=== PATIENT | male | born 1955 | race Caucasian/White ===

== ENCOUNTER 2018-05-20 14:57 | Inpatient (IN) | payer MEDICAID ==
[~2018-05-20] VITALS: Ht 165.1 cm; Wt 74.4 kg
--- NOTE | 2018-05-20 15:00 | NUR ---
RT PT WAS BROUGHT TO SUB ACUTE VIA AMBULANCE. PT WAS TRANSFER TO BED AND VENT WITH OUT INCIDENT. PT WAS PLACE ON HOSPITAL VENT SETTING GIVEN BY TRANSPORT RT. AC 14, VT 500, PEEP +5 FIO2 32% BLEED IN 3LPM. PT TRACH SIZE SHILEY 6 DCT SECURED AND INTACT WITH TIE, CUFF CHECKED WITH BENCH MOLDER. PT WAS SUCTION SMALL YELLOW/ WHITE SECRETION OBTAIN. PT HME WAS CHANGED. PT ALARMS ON AND AUDIBLE, AMBU BAG AND BACK UP TRACH AT BED SIDE. PT TOLERATING VENT WELL NO DISTRESS NOTED. PT HAS NO ABG ORDER, NO TX ORDER AT THIS TIME WILL CONTINUE TO MONITOR PT. NO SPUTUM ORDER AT THIS TIME.
[2018-05-20] MEDS ORDERED: HYDROGEN PEROXIDE 3% 118 ML BOTTLE TP PRN (18:15)
[2018-05-20] MEDS ORDERED: ACETAMINOPHEN 650 MG/20 ML UDC- SA PATIENTS-FEVER ONLY GT PRN (18:15)
[2018-05-20] MEDS ORDERED: DEXTROSE 50% 50 ML DISP.SYRIN IV PRN (18:30)
[2018-05-20] MEDS ORDERED: hydrALAZINE HCL 10 MG TABLET GT PRN (18:30)
[2018-05-20] MEDS ORDERED: TUBERCULIN,PURIF.PROT.DERIV. 5 TU/0.1 ML TEST ID ONE (18:45)
[2018-05-20 18:50] VITALS: BP 112/62
--- NOTE | 2018-05-20 18:56 | NUR ---
Received patient via gurney from [facility], no distress noted, Mechanical vent set up by Rt, no s/s of acute distress noted, has gtube, feeding started, no n/v noted, f/c in place, changed due to by passing urine, f/c [id number] restarted and f/c started to drain yellow cloudy with sediments urine, right ear pressure ulcer stage IV and sacral ulcer St III per report, picture taken, tx ordered, cleanse and dressing changed, bilateral trace edema on foot noted, edema +3 noted on upper extremities, and daughter at bedside, refused flu and pneumonia vaccine at this time. Bed low and locked. call light within reached. will continue to monitor.
[2018-05-20] MEDS: ALBUTEROL SULFATE 2.5 MG/3 ML NEBU NEB SCH (19:30)
[2018-05-20] MEDS: IPRATROPIUM BROMIDE 0.5 MG/2.5 ML NEBU NEB SCH (19:30)
--- NOTE | 2018-05-20 19:55 | NUR ---
Pt received on HT-50 ventilator with the following settings of AC 14, VT 500, Peep +5, FiO2 3LPM O2 Bleed-in, no changes to vent settings made at this time. Pt's trach is secured and patent. Pt tolerating vent settings well, no signs and symptoms of respiratory distress noted. Suctioned pt with moderate amount of thick pale-yellowish secretions. Changed HME. Vent alarms functioning and audible. Vent plugged in red outlet. Will continue to monitor pt throughout shift.
[2018-05-20 20:59] VITALS: BP 134/74
[2018-05-20] MEDS ORDERED: ATORVASTATIN 40 MG TABLET GT SCH (21:00)
[2018-05-20] MEDS ORDERED: LACOSAMIDE 100 MG/10 ML UDC GT SCH (21:00)
[2018-05-20] MEDS ORDERED: METOPROLOL TARTRATE 25 MG TABLET GT SCH (21:00)
[2018-05-20] MEDS ORDERED: ENOXAPARIN SODIUM 60 MG/0.6 ML DISP.SYRIN SQ SCH (21:00)
[2018-05-20] MEDS ORDERED: MISCELLANEOUS MED GT SCH (21:00)
[2018-05-20] MEDS ORDERED: VALPROIC ACID 250 MG/5 ML LIQUID UDC GT SCH (21:00)
[2018-05-20] MEDS: FERROUS SULFATE 330 MG/7.5 ML UDC- FOR SA ONLY GT SCH (21:32)
[2018-05-20] MEDS: ASCORBIC ACID 500 MG TABLET GT SCH (21:32)
[2018-05-20] MEDS: PROTEIN SUPPLEMENT (PROSTAT) 30 ML LIQUID GT SCH (21:32)
[2018-05-20] MEDS: ZINC SULFATE 220 MG CAPSULE GT SCH (21:32)
[2018-05-20] MEDS: POLYVINYL ALCOHOL OPHT DROPS 15 ML BOTTLE OP SCH (21:32)
[2018-05-20] MEDS: HYDROGEN PEROXIDE 3% 118 ML BOTTLE TP SCH (21:32)
[2018-05-20] MEDS ORDERED: MIDODRINE HCL 5 MG TABLET GT SCH (22:00)
[2018-05-21] MEDS ORDERED: DILTIAZEM HCL 30 MG TABLET GT SCH
[2018-05-21] MEDS ORDERED: METOCLOPRAMIDE HCL 5 MG TABLET GT SCH
[2018-05-21] MEDS: BLOOD SUGAR DIAGNOSTIC 1 EACH STRIP VI SCH ×4 (00:49→17:34)
[2018-05-21] MEDS: IPRATROPIUM BROMIDE 0.5 MG/2.5 ML NEBU NEB SCH ×4 (01:09→19:28)
[2018-05-21] MEDS: ALBUTEROL SULFATE 2.5 MG/3 ML NEBU NEB SCH ×4 (01:10→19:28)
[2018-05-21] MEDS: FERROUS SULFATE 330 MG/7.5 ML UDC- FOR SA ONLY GT SCH ×3 (05:37→22:00)
[2018-05-21] MEDS: POLYVINYL ALCOHOL OPHT DROPS 15 ML BOTTLE OP SCH ×3 (05:37→22:00)
[2018-05-21] MEDS ORDERED: [UNRECOGNIZED DRUG - OTHER] GT SCH (06:30)
[2018-05-21 08:41] LABS: BASOPHILS % (AUTO) 0.4 % (0.0-2.0); EOSINOPHILS # (AUTO) 0.2 K/uL (0.0-0.7); EOSINOPHILS % (AUTO) 3.9 % (0.0-7.0); HEMATOCRIT 23.7 % (36.7-47.1); HEMOGLOBIN 8.1 g/dL (12.5-16.3); LYMPHOCYTES % (AUTO) 17.8 % (20.5-51.5); MEAN CORPUSCULAR HEMOGLOBIN 29.5 uug (23.8-33.4); MEAN CORPUSCULAR HGB CONC 34 g/dL (32.5-36.3); MEAN CORPUSCULAR VOLUME 86.3 fL (73.0-96.2); MONOCYTES # (AUTO) 0.5 K/uL (2.0-10.0); MONOCYTES % (AUTO) 10.1 % (0.0-11.0); NEUTROPHILS # (AUTO) 3.7 K/uL (1.8-8.9); NEUTROPHILS % (AUTO) 67.8 % (38.5-71.5); PLATELET COUNT (AUTO) 169 K/uL (152-348); RED BLOOD CELL COUNT(AUTO) 2.74 MIL/uL (4.06-5.63); WHITE BLOOD COUNT (AUTO) 5.4 K/uL (3.6-10.2)
[2018-05-21] MEDS ORDERED: METOPROLOL TARTRATE 25 MG TABLET GT SCH (09:00)
[2018-05-21] MEDS ORDERED: MULTIVITAMINS,THERAPEUTIC TABLET GT SCH ×2 (09:00→21:00)
[2018-05-21 09:11] LABS: BAND % (MANUAL) 2 % (0-10); EOSINOPHILS % (MANUAL) 3 % (0-8); LYMPHOCYTES % (MANUAL) 23 % (20-40); MONOCYTES % (MANUAL) 5 % (2-10); NEUTROPHILS % (MANUAL) 67 % (42-75)
[2018-05-21 09:32] LABS: THYROID STIMULATING HORMONE 2.614 mIU/mL (0.358-3.740)
[2018-05-21 09:38] LABS: ALANINE AMINOTRANSFERASE 179 U/L (16-63); ALKALINE PHOSPHATASE 124 U/L (50-136); ASPARTATE AMINOTRANSFERASE 116 U/L (15-37); BILIRUBIN,TOTAL 0.3 mg/dL (0.2-1.0); CARBON DIOXIDE 30 mmol/L (21-32); CHLORIDE 104 mmol/L (98-107); CHOLESTEROL 97 mg/dL (<200); CREATININE 0.5 mg/dL (0.6-1.3); GLUCOSE 133 mg/dL (74-106); HDL CHOLESTEROL 16 mg/dL (40-60); MAGNESIUM 1.9 mg/dL (1.8-2.4); POTASSIUM 4.1 mmol/L (3.5-5.1); TOTAL PROTEIN, SERUM 5.3 g/dL (6.4-8.2); TRIGLYCERIDES 117 MG/DL (30-150); UREA NITROGEN, BLOOD 24 mg/dL (7-18)
[2018-05-21] MEDS: LOSARTAN POTASSIUM 50 MG TABLET GT SCH (09:50)
[2018-05-21] MEDS: ASPIRIN 81 MG TAB.CHEW GT SCH (09:50)
[2018-05-21] MEDS: LEVETIRACETAM 500 MG/5 ML LIQUID UDC GT SCH ×2 (09:50→21:00)
[2018-05-21] MEDS: VALPROIC ACID 250 MG/5 ML LIQUID UDC GT SCH ×2 (09:51→21:00)
[2018-05-21] MEDS: METOPROLOL TARTRATE 50 MG TABLET GT SCH ×2 (09:51→21:00)
[2018-05-21] MEDS: HYDROGEN PEROXIDE 3% 118 ML BOTTLE TP SCH ×2 (09:52→21:00)
[2018-05-21] MEDS: ACETAMINOPHEN 650 MG/20 ML UDC- SA PATIENTS-PAIN ONLY GT PRN (09:56)
--- NOTE | 2018-05-21 11:00 | NUR ---
Pt evaluation done with new orders noted for prom by Rna to all extremities,carried out.
[2018-05-21 11:49] VITALS: BP 141/86
[2018-05-21 11:51] VITALS: BP 131/67
[2018-05-21] MEDS: METOCLOPRAMIDE HCL 10 MG/10 ML UDC GT SCH ×2 (11:52→17:34)
[2018-05-21 12:30] VITALS: BP 122/63
--- NOTE | 2018-05-21 13:59 | NUR ---
WOUND CARE CONSULT: PT PRESENTS WITH RT EAR HEALING STAGE 4 ULCER (PRESENT ON ADMISSION) WHICH MEASURES 2CM X 1CM X 0.1CM AND IS RED/PINK IN COLOR, NO DRAINAGE, NO ODOR. CONCUR WITH CURRENT ORDER FOR HYDROGEL AND DRY DRESSING, OFFLOAD AREA. PT ALSO PRESENTS WITH STAGE 3 SACRAL ULCER, PRESENT ON ADMISSION WITH WOUND BED CHANGES TO INCLUDE 100% YELLOW ADHERENT SLOUGH, PRESENT ON ADMISSION. SACRAL WOUND MEASURES 2CM X 1CM X UTD WITH SCANT AMOUNT OF SEROUS DRAINAGE, NO ODOR. SANTYL WAS REQUESTED BY NURSING STAFF. RECOMMENDATIONS MADE FOR SKIN PROTECTION AND WOUND CARE. DISCUSSED WITH NURSING STAFF (APPLY SALINE-MOISTENED GAUZE OVER SANTYL). WILL SEE PRN. GILL IN AGREEMENT WITH PLAN OF CARE.
--- NOTE | 2018-05-21 14:10 | NUR ---
Seen and examined by Sofie wound home care physical therapist with new orders noted.
[2018-05-21] MEDS ORDERED: MIDODRINE HCL 5 MG TABLET GT PRN (14:45)
[2018-05-21] MEDS ORDERED: COLLAGENASE OINT 30 GM TUBE TP PRN (15:30)
--- NOTE | 2018-05-21 15:39 | NUR ---
new orders noted from Dr Willams,Lovenox changed to 40 mg for Dvt prophilaxis,to start on pepcid 40 mg via gt at 0630 am.
[2018-05-21 16:30] VITALS: BP 117/69
--- NOTE | 2018-05-21 17:38 | NUR ---
RECEIVED RESIDENT STABLE ON CURRENT VENTILATOR SETTINGS OF AC 14 VT 500, PEEP 5 AND FIO2 BLED IN AT 3LPM IN LINE. IN LINE TX GIVEN WITHOUT COMPLICATION. SUCTIONED FOR MODERATE AMOUNT OF PALE WHITE SECRETIONS. TRACH SHILEY # 6 IS SECURE AND CLEAN. VENT IS WORKING WELL WITH ALARMS ACTIVE. CHANGED HUMIDIFIER FILTER.
--- NOTE | 2018-05-21 19:30 | NUR ---
Pt received on HT-50 vent with the following settings of AC-14, Vt-500, PEEP+5, FIO2-3LPM bleed-in, trached with Shiley#6 DCT trach, which is in the place and secure. No respiratory distress noted. Airway care done, pt responded to physical stimuli. In-line HHN tx with 2.5mg Albuterol+0.5mg Atrovent given, no adverse reaction noted. Resus. bag and back up trach at bedside. Vent and alarms checked and reset.
--- NOTE | 2018-05-21 19:30 | NUR ---
Hand-off report received from off-going RN per bedside rounds. Received pt on HT Vent Settings: AC 14, VT 500, Peep 5, FI02 3 LPM bleed in trach, Bridgett #6. Right ear pressure ulcer stage4 and sacral ulcer stage 3. Edema 3+ in both upper extremities and slightly less in lower extremities.
[2018-05-21 19:43] LABS: *BILIRUBIN,URIN NEGATIVE (NEGATIVE); *BLOOD, URINE 3+ (NEGATIVE); *CLARITY,URINE SLIGHTLY CLOUDY (CLEAR); *COLOR,URINE AMBER (YELLOW); *KETONES,URINE NEGATIVE (NEGATIVE); LEUKOCYTE ESTERASE ,URINE 2+ (NEGATIVE); NITRITE, URINE NEGATIVE (NEGATIVE); PH,URINE >=9.0 (5.0-8.0); UGLUCOSE NEGATIVE (NEGATIVE)
[2018-05-21 19:44] LABS: RBC,URINE 20-50 /HPF (0-3)
[2018-05-21 19:45] LABS: BACTERIA,URINE MANY /HPF (NONE SEEN); SQUAMOUS EPITHELIAL CELL,UR FEW /HPF (NONE SEEN); TRIPLE PHOSPHATE CRYSTAL,UR FEW /HPF (NONE SEEN)
[2018-05-21 20:06] VITALS: BP 133/77
[2018-05-21] MEDS: ATORVASTATIN CALCIUM 80 MG TABLET PO SCH (21:00)
[2018-05-21] MEDS: MULTIVITAMINS,THERAPEUTIC TABLET GT SCH (21:00)
[2018-05-21] MEDS: LACOSAMIDE 200 MG TABLET XX SCH (21:00)
[2018-05-21] MEDS: PROTEIN SUPPLEMENT (PROSTAT) 30 ML LIQUID GT SCH (21:00)
[2018-05-21] MEDS: ASCORBIC ACID 500 MG TABLET GT SCH (21:00)
[2018-05-21] MEDS: ZINC SULFATE 220 MG CAPSULE GT SCH (21:00)
--- NOTE | 2018-05-22 01:00 | NUR ---
Found new unopened box of Lovenox in Med drawer among routine meds. Handed over to Charge Nurse Marissa MOORE. Instructed by dayshift that Lovenox was scheduled for delivery and we are "NOT" to accept it and send it back. Uncertain as to when and how meds ended up in drawer as is Charge Nurse. Urine remains yellow, no signs of bleeding. Continue to monitor and assist.
[2018-05-22] MEDS: IPRATROPIUM BROMIDE 0.5 MG/2.5 ML NEBU NEB SCH ×4 (01:08→19:53)
[2018-05-22] MEDS: ALBUTEROL SULFATE 2.5 MG/3 ML NEBU NEB SCH ×4 (01:08→19:53)
[2018-05-22 01:35] VITALS: BP 115/65
[2018-05-22 05:36] VITALS: BP 139/73
[2018-05-22] MEDS ORDERED: ENOXAPARIN SODIUM 60 MG/0.6 ML DISP.SYRIN SQ SCH (06:00)
[2018-05-22 06:05] LABS: ABG BASE EXCESS 3.6 mmol/L; ABG HCO3 26.3 mmol/L; ABG PCO2 32.6 mmHg (35.0-45.0); ABG PH 7.525 (7.350-7.450); ABG PO2 199.8 mmHg (75.0-100.0); ABG SITE LEFT RADIAL; ABG TOTAL HEMOGLOBIN 9.3 G/dL (13.5-18.0); MetHb 0.2 % (0.0-1.5); O2Hb 98.4 % (94.0-97.0); VENT MODE VENT - A/C; VT, ABG 500 mL
[2018-05-22] MEDS: BLOOD SUGAR DIAGNOSTIC 1 EACH STRIP VI SCH ×4 (06:47→17:38)
[2018-05-22] MEDS: POLYVINYL ALCOHOL OPHT DROPS 15 ML BOTTLE OP SCH ×3 (06:48→21:01)
[2018-05-22] MEDS: METOCLOPRAMIDE HCL 10 MG/10 ML UDC GT SCH ×4 (06:49→17:38)
[2018-05-22] MEDS: FERROUS SULFATE 330 MG/7.5 ML UDC- FOR SA ONLY GT SCH ×3 (06:49→21:01)
--- NOTE | 2018-05-22 07:15 | NUR ---
Hand-off report to on-coming Kishan MOORE per bedside round. Pt in bed, no significant changes. Stool, Sputum and Urine specimens all obtained. Relinquishing care of pt at this time.
--- NOTE | 2018-05-22 07:50 | NUR ---
Pt received in semi tellez position, obtunded, and unable to communicate. Pt received on continuous mechanical ventilation via Shiley 6 DCT trach. Pt is on Jose HT-50 ventilator with ordered settings of A/C-14, VT-500, PEEP+5, FIO2-32% 3LPM Bleed-in. Tolerating vent settings well. SpO2-100% Trach is patent and secured. In-line nebulizer treatments given as ordered, Q6 with Albuterol/Atrovent. Treatments tolerated well, no adverse reactions noted. Sxn'd and lavaged as needed. Suctioned small amounts of thick white/yellow secretions. HME changed. No signs or symptoms of respiratory distress. Ventilator alarm parameters checked, on and audible. Vent plugged into red emergency outlet. Bag/valve/mask and backup trach at bedside. Will continue to monitor.
[2018-05-22 07:58] LABS: *OCCULT BLOOD STOOL NEGATIVE (NEGATIVE)
[2018-05-22] MEDS: METOPROLOL TARTRATE 50 MG TABLET GT SCH ×2 (09:43→20:49)
[2018-05-22] MEDS: LOSARTAN POTASSIUM 50 MG TABLET GT SCH (09:43)
[2018-05-22] MEDS: VALPROIC ACID 250 MG/5 ML LIQUID UDC GT SCH ×2 (09:43→20:48)
[2018-05-22] MEDS: LEVETIRACETAM 500 MG/5 ML LIQUID UDC GT SCH ×2 (09:43→20:48)
[2018-05-22] MEDS: ASPIRIN 81 MG TAB.CHEW GT SCH (09:43)
[2018-05-22] MEDS: HYDROGEN PEROXIDE 3% 118 ML BOTTLE TP SCH ×2 (09:44→20:50)
[2018-05-22] MEDS: LACOSAMIDE 200 MG TABLET XX SCH ×2 (09:44→21:01)
--- NOTE | 2018-05-22 10:34 | NUR ---
SW met with patient's Zoya and daughter Vagnie and obtained 's signatures on the admission forms: Conditions of Admissions, [facility] Agreement, Patient's Rights Acknowledgement, Voluntary Prior Express Consent Form, and Preferred Intensity of Care. Patient is a Full Code. is Malian-speaking only. Translation provided by daughter, Vangie. SW also completed the initial psychosocial assessment with patient's , Zoya and daughter Shawnee, and translation was provided by daughter, Vangie. Patient's is the responsible alliance party and decision maker. She also requested to include pt's niece, Indra Pierce ([phone]), as she is an RN. All other children live in [facility]. No visitation restrictions provided by family.
--- NOTE | 2018-05-22 17:14 | NUR ---
Dr Beltrán aware of the venous doppler results,lower extremity negative for DVT,and for the upper extremities the result is ;there is no flow present within the brachial veins bilaterally ,clot formation is also observed,impression,changes of bilateral acute deep venous thrombosis involving the brachial veins .he stated to inform the primary physicians,if he wants a vascular surgeon consultation,Dr Chapa called ,email operations manager for the [employer] this week,with no new orders noted,he stated we can't order lovenox because the hemoglobin is 8.1,,no orders for vascular surgeon consultation.Dr Beltrán called and left message making him aware .
--- NOTE | 2018-05-22 17:15 | NUR ---
FIO2 decreased per MD orders to Titrate to SpO2>92%. Oxygen changed to 2LPM Bleed-in.
--- NOTE | 2018-05-22 19:55 | NUR ---
RECEIVED PT ON CONTINUOUS VENT AC 14 VT 500 PEEP 5 FIO2 2LPM BLEED. TRACH IN PLACED AND SECURED WITH TRACH TIE. BACK UP TRACH AND AMBU BAG AT BEDSIDE. IN LINE TX GIVEN ORDERED. SUCTION LAVAGE PRN. VENT CHECKED, ALARMS WORKING WELL AND AUDIBLE. NO SIGNS OF RESPIRATORY DISTRESS NOTED AT THIS TIME. WILL CONTINUE TO MONITOR.
[2018-05-22 20:19] VITALS: BP 127/76
[2018-05-22] MEDS: PROTEIN SUPPLEMENT (PROSTAT) 30 ML LIQUID GT SCH (20:49)
[2018-05-22] MEDS: MULTIVITAMINS,THERAPEUTIC TABLET GT SCH (20:49)
[2018-05-22] MEDS: ASCORBIC ACID 500 MG TABLET GT SCH (20:50)
[2018-05-22] MEDS: ATORVASTATIN CALCIUM 80 MG TABLET PO SCH (20:50)
[2018-05-22] MEDS: ZINC SULFATE 220 MG CAPSULE GT SCH (20:50)
[2018-05-22] MEDS: COLLAGENASE OINT 30 GM TUBE TP SCH (21:03)
[2018-05-23] VITALS: BP 123/66
[2018-05-23] MEDS: METOCLOPRAMIDE HCL 10 MG/10 ML UDC GT SCH ×4 (00:31→18:20)
[2018-05-23] MEDS: BLOOD SUGAR DIAGNOSTIC 1 EACH STRIP VI SCH ×4 (00:32→18:20)
[2018-05-23] MEDS: IPRATROPIUM BROMIDE 0.5 MG/2.5 ML NEBU NEB SCH ×4 (01:11→19:30)
[2018-05-23] MEDS: ALBUTEROL SULFATE 2.5 MG/3 ML NEBU NEB SCH ×4 (01:11→19:30)
[2018-05-23] MEDS: GLUCERNA 1.2 1000ML LIQUID GT PRN ×2 (01:37→21:41)
[2018-05-23 04:00] VITALS: BP 117/64
[2018-05-23] MEDS: FERROUS SULFATE 330 MG/7.5 ML UDC- FOR SA ONLY GT SCH ×3 (06:34→21:48)
[2018-05-23] MEDS: POLYVINYL ALCOHOL OPHT DROPS 15 ML BOTTLE OP SCH ×3 (06:35→21:48)
[2018-05-23 08:00] VITALS: BP 124/41
--- NOTE | 2018-05-23 08:06 | NUR ---
Pt receive in semi tellez position, unable to communicate, responds to physical stimuli.. Continuous mechanical ventilation with vent: HT-50 settings: A/C 14, Vt 500, PEEP +5, FIO2 28% with 2 Lpm bleed in, tolerating settings well, no changes made to settings at this time.. Pt trach: Leonard 6 DCT, in place and secure with tie.. No respiratory distress noted at this time, will continue to monitor.. Vent alarms functioning normally at this time / on / audible.. BVM / back up trach at bedside, vent plugged in to red emergency outlet..
[2018-05-23] MEDS: METOPROLOL TARTRATE 50 MG TABLET GT SCH ×2 (09:07→21:34)
[2018-05-23] MEDS: LEVETIRACETAM 500 MG/5 ML LIQUID UDC GT SCH ×2 (09:07→21:32)
[2018-05-23] MEDS: ASPIRIN 81 MG TAB.CHEW GT SCH (09:07)
[2018-05-23] MEDS: LOSARTAN POTASSIUM 50 MG TABLET GT SCH (09:07)
[2018-05-23] MEDS: COLLAGENASE OINT 30 GM TUBE TP SCH ×2 (09:07→21:47)
[2018-05-23] MEDS: HYDROGEN PEROXIDE 3% 118 ML BOTTLE TP SCH ×2 (09:07→21:47)
[2018-05-23] MEDS: VALPROIC ACID 250 MG/5 ML LIQUID UDC GT SCH ×2 (09:07→21:32)
[2018-05-23] MEDS: LACOSAMIDE 200 MG TABLET XX SCH ×2 (09:08→21:47)
[2018-05-23 09:47] LABS: BASOPHILS % (AUTO) 0.6 % (0.0-2.0); EOSINOPHILS # (AUTO) 0.2 K/uL (0.0-0.7); HEMATOCRIT 27.8 % (36.7-47.1); HEMOGLOBIN 9.2 g/dL (12.5-16.3); LYMPHOCYTES # (AUTO) 1.3 K/uL (20.0-40.0); MEAN CORPUSCULAR HEMOGLOBIN 29.1 uug (23.8-33.4); MEAN CORPUSCULAR HGB CONC 33 g/dL (32.5-36.3); MEAN CORPUSCULAR VOLUME 87.6 fL (73.0-96.2); MONOCYTES # (AUTO) 0.8 K/uL (2.0-10.0); MONOCYTES % (AUTO) 10.6 % (0.0-11.0); NEUTROPHILS # (AUTO) 5.3 K/uL (1.8-8.9); NEUTROPHILS % (AUTO) 69.8 % (38.5-71.5); PLATELET COUNT (AUTO) 194 K/uL (152-348); RED BLOOD CELL COUNT(AUTO) 3.17 MIL/uL (4.06-5.63); WHITE BLOOD COUNT (AUTO) 7.6 K/uL (3.6-10.2)
[2018-05-23] MEDS ORDERED: ENOXAPARIN SODIUM 80 MG/0.8 ML DISP.SYRIN SQ ONE (11:00)
--- NOTE | 2018-05-23 18:39 | NUR ---
Received call from Lab for MRSA positive. Paged Dr. Beltrán with new orders noted and carried out .
--- NOTE | 2018-05-23 18:41 | NUR ---
Notified responsible republican of the MRSA status of the patient and the plan of action.
--- NOTE | 2018-05-23 19:30 | NUR ---
RECEIVED PATIENT ON A HT-50 VENTILATOR WITH THE FOLLOWING SETTINGS THAT ARE CHARTED ON THE MECHANICAL VENTILATOR NOTES. TRACH TUBE IS PATENT AND SECURED WITH TRACH TIES. HME CHANGED. SUCTIONED SMALL AMOUNTS OF THIN WHITE/YELLOW SECRETIONS. HHN TX GIVEN PER MD ORDER'S AND WAS TOLERATED WELL WITH NO ADVERSE REACTIONS NOTED. VENTILATOR ALARMS CHECKED AND THEY ARE ON AND AUDIBLE. VENTILATOR IS PLUGGED IN THE RED EMERGENCY OUTLET. BACK UP TRACH AND AMBU BAG IS BY BEDSIDE. PATIENT IS TOLERATING CURRENT VENTILATOR SETTINGS WELL AT THIS TIME WITH NO SIGNS OR SYMPTOMS OF RESPIRATORY DISTRESS NOTED. WILL CONTINUE TO MONITOR PATIENT.
[2018-05-23 20:00] VITALS: BP 139/79
[2018-05-23] MEDS: MUPIROCIN 2% OINT 22 GM TUBE TP SCH (21:00)
[2018-05-23] MEDS: ASCORBIC ACID 500 MG TABLET GT SCH (21:35)
[2018-05-23] MEDS: MULTIVITAMINS,THERAPEUTIC TABLET GT SCH (21:35)
[2018-05-23] MEDS: PROTEIN SUPPLEMENT (PROSTAT) 30 ML LIQUID GT SCH (21:35)
[2018-05-23] MEDS: ZINC SULFATE 220 MG CAPSULE GT SCH (21:35)
[2018-05-23] MEDS: ATORVASTATIN CALCIUM 80 MG TABLET PO SCH (21:36)
[2018-05-23] MEDS: ENOXAPARIN SODIUM 80 MG/0.8 ML DISP.SYRIN SQ SCH (21:45)
[2018-05-24] MEDS: BLOOD SUGAR DIAGNOSTIC 1 EACH STRIP VI SCH ×4 (00:40→17:10)
[2018-05-24] MEDS: METOCLOPRAMIDE HCL 10 MG/10 ML UDC GT SCH ×4 (00:45→17:10)
[2018-05-24 01:19] VITALS: BP 116/76
[2018-05-24] MEDS: ALBUTEROL SULFATE 2.5 MG/3 ML NEBU NEB SCH ×4 (01:21→19:20)
[2018-05-24] MEDS: IPRATROPIUM BROMIDE 0.5 MG/2.5 ML NEBU NEB SCH ×4 (01:21→19:20)
[2018-05-24] MEDS: FERROUS SULFATE 330 MG/7.5 ML UDC- FOR SA ONLY GT SCH ×3 (05:05→21:49)
[2018-05-24] MEDS: POLYVINYL ALCOHOL OPHT DROPS 15 ML BOTTLE OP SCH ×3 (05:05→21:49)
[2018-05-24] MEDS: FAMOTIDINE 40 MG TABLET GT SCH (05:35)
[2018-05-24 06:01] VITALS: BP 114/63
[2018-05-24 07:13] LABS: CARBON DIOXIDE 30 mmol/L (21-32); CHLORIDE 104 mmol/L (98-107); CREATININE 0.5 mg/dL (0.6-1.3); GLUCOSE 117 mg/dL (74-106); POTASSIUM 4.3 mmol/L (3.5-5.1); UREA NITROGEN, BLOOD 27 mg/dL (7-18)
[2018-05-24 07:22] LABS: BASOPHILS % (AUTO) 0.5 % (0.0-2.0); EOSINOPHILS # (AUTO) 0.2 K/uL (0.0-0.7); EOSINOPHILS % (AUTO) 2.1 % (0.0-7.0); HEMATOCRIT 26.8 % (36.7-47.1); HEMOGLOBIN 9.1 g/dL (12.5-16.3); LYMPHOCYTES # (AUTO) 1.3 K/uL (20.0-40.0); LYMPHOCYTES % (AUTO) 16.5 % (20.5-51.5); MEAN CORPUSCULAR HEMOGLOBIN 29.5 uug (23.8-33.4); MEAN CORPUSCULAR HGB CONC 34 g/dL (32.5-36.3); MEAN CORPUSCULAR VOLUME 87.3 fL (73.0-96.2); MONOCYTES # (AUTO) 0.7 K/uL (2.0-10.0); MONOCYTES % (AUTO) 8.9 % (0.0-11.0); NEUTROPHILS # (AUTO) 5.6 K/uL (1.8-8.9); PLATELET COUNT (AUTO) 195 K/uL (152-348); RED BLOOD CELL COUNT(AUTO) 3.07 MIL/uL (4.06-5.63); WHITE BLOOD COUNT (AUTO) 7.8 K/uL (3.6-10.2)
--- NOTE | 2018-05-24 07:45 | NUR ---
PT REC'D ON HT-50 VENT AC 14 VT 500 PEEP+5 2LPM O2 BLEED-IN. SHILEY6 CUFFED TRACH IN PLACED AND SECURED WITH TRACH TIE. BACK UP TRACH AND AMBU BAG AT BEDSIDE. IN LINE NEB TX'S GIVEN ORDERED. SUCTION/LAVAGE PRN. VENT ALARMS AUDIBLE CHECKED AND RESET. NO SIGNS OF RESPIRATORY DISTRESS NOTED AT THIS TIME. WILL CONTINUE TO MONITOR.
[2018-05-24 08:07] LABS: EOSINOPHILS % (MANUAL) 2 % (0-8); LYMPHOCYTES % (MANUAL) 7 % (20-40); MONOCYTES % (MANUAL) 6 % (2-10); NEUTROPHILS % (MANUAL) 85 % (42-75)
[2018-05-24 09:00] VITALS: BP 124/64
[2018-05-24] MEDS: VALPROIC ACID 250 MG/5 ML LIQUID UDC GT SCH ×2 (09:07→20:24)
[2018-05-24] MEDS: LOSARTAN POTASSIUM 50 MG TABLET GT SCH (09:07)
[2018-05-24] MEDS: ASPIRIN 81 MG TAB.CHEW GT SCH (09:07)
[2018-05-24] MEDS: LEVETIRACETAM 500 MG/5 ML LIQUID UDC GT SCH ×2 (09:08→20:24)
[2018-05-24] MEDS: METOPROLOL TARTRATE 50 MG TABLET GT SCH ×2 (09:09→20:25)
[2018-05-24] MEDS: ENOXAPARIN SODIUM 80 MG/0.8 ML DISP.SYRIN SQ SCH ×2 (09:09→20:32)
[2018-05-24] MEDS: COLLAGENASE OINT 30 GM TUBE TP SCH ×2 (09:11→20:26)
[2018-05-24] MEDS: MUPIROCIN 2% OINT 22 GM TUBE TP SCH ×2 (09:11→20:26)
[2018-05-24] MEDS: LACOSAMIDE 200 MG TABLET XX SCH ×2 (09:11→20:26)
[2018-05-24] MEDS: HYDROGEN PEROXIDE 3% 118 ML BOTTLE TP SCH ×2 (09:11→20:26)
[2018-05-24] MEDS: INSULIN REGULAR, HUMAN 300 UNIT/3 ML VIAL SQ PRN ×2 (12:11→17:10)
--- NOTE | 2018-05-24 13:46 | NUR ---
Pharmacy Update from today's 05/24/18 IDT Meeting Note: Pt admitted 05/20/18 from acute rehab for continuation of care after sudden cardiac arrest and subsequent anoxic brain injury. Pt is vent dependent, bedbound and developed seizures after cardiac arrest. Was treated for VAP, UTI, sepsis before transfer to [facility]: Temp 98.5 BP 116/75 HR 102 LABS: (from 05/24/18) Wbc 7.8 H/H 9.1/26.8 Plt 195 Na 139 K 4.3 Cl 104 CO2 30 BUN/Scr 27/0.5 BS 117 Ca 8.7 phos 4.0 Mg 1.9 A1c 5.7 TSH 2.614 MEDICATION USE REVIEWED: > Pt not on any anti-psych medications > Pt on Keppra 1500mg q12h since admit on 05/20/18, last calculated CrCl 133 ml/min, dose ok per renal fxn. > Pt on Vimpat 200mg q12h since admit 05/20/18, no seizures reported > Pt on Valproic acid 1000mg q12h since admit 05/20/18, no seizures at this time, will request levels if dose no longer adjusted by MDs. > Pt on Cozaar 50mg daily since 05/20/18, Lopressor 50mg q12hr (increased from 25mg q12h on 05/21), and hydralazine 10mg PRN SBP >160. Hold parameters in effect. Pt also previously on midodrine 10mg q8h prn SBP <90, continued per MD > Pt on famotidine 40mg daily for GI prophylaxis, ok per renal function. Remains on reglan 5mg q6h for continued gastroparesis maintenance treatment PRN MED USAGE: (since admit) Tylenol for pain/temp x0 Hydralazine used x0 Midodrine used x0 NEW ORDERS NOTED: > Rx reviewed all medications upon admission and made following recs: > Rec for change of midodrine scheduled to PRN based on current HTN med treatments and controlled BP at this time > Rec for lovenox 60mg daily - incorrect dosing originally for DVT prophylaxis, clarified and changed to 40mg daily > Pt noted with upper extremity DVT, lovenox dosing changed from 40 daily to 70mg q12h per weight based dosing 05/23. Plt ok at this time > Mupirocin ointment for MRSA nares 05/23-06/02 > Lopressor increased 05/21 25mg q12h to 50mg q12h. HR remains about baseline at 102, MD aware and following Patient was reviewed and discussed at IDT with family in attendance. All reports given per team, including recent medication changes and review of regimen. Recent start of lovenox treatment for DVT discussed, location in upper extremities and plt, hgb today ok for treatment. Pt's family noted he did previously have a HTN med d/c'd due to cough and possible angioedema, likely LEELA or ARB. Rx inquired if this medication had been d/c'd and replaced or is ongoing. Family notes this was rectified before transfer, no reports currently from RNs, therefore likely not pt's current cozaar. Rx also noted recent change with lopressor d/t HR, noted by IDT and , family aware, pt baseline HR about 100. No further concerns from team/family at this time, will continue to follow.
--- NOTE | 2018-05-24 16:36 | NUR ---
INTERDISCIPLINARY PLAN OF CARE CONFERENCE was held today. Patient's and daughter Vignesh were present at the meeting. Dr. Beltrán and the Interdisciplinary Team reviewed the current plan of care in detail. Patient was admitted to Subacute on 05/20/18. RN reported on patient's medical condition, wound treatments, and about positive finding for MRSA. Patient is currently on contact isolation precautions. See RN IDT conference notes. Pharmacist discussed patient's medications. See all disciplines IDT notes and physician's progress notes for additional details. Family's questions were addressed by Dr. Beltrán and the IDT team, and they expressed understanding and being content with the current plan of care.
[2018-05-24 19:59] VITALS: BP 130/74
[2018-05-24] MEDS: ASCORBIC ACID 500 MG TABLET GT SCH (20:25)
[2018-05-24] MEDS: MULTIVITAMINS,THERAPEUTIC TABLET GT SCH (20:25)
[2018-05-24] MEDS: PROTEIN SUPPLEMENT (PROSTAT) 30 ML LIQUID GT SCH (20:25)
[2018-05-24] MEDS: ATORVASTATIN CALCIUM 80 MG TABLET PO SCH (20:26)
[2018-05-24] MEDS: ZINC SULFATE 220 MG CAPSULE GT SCH (20:26)
--- NOTE | 2018-05-24 21:00 | NUR ---
Pt received on HT-50 ventilator with the following settings of AC 14, VT 500, Peep +5, FiO2 2LPM O2 Bleed-in, no changes to vent settings made at this time. Pt's trach is secured and patent. Pt tolerating vent settings well, no signs and symptoms of respiratory distress noted. Suctioned pt with moderate amount of thick pale-yellowish secretions. Changed HME. Vent alarms functioning and audible. Vent plugged in red outlet. Will continue to monitor pt throughout shift.
[2018-05-25] MEDS: METOCLOPRAMIDE HCL 10 MG/10 ML UDC GT SCH ×4 (00:15→17:41)
[2018-05-25] MEDS: BLOOD SUGAR DIAGNOSTIC 1 EACH STRIP VI SCH ×4 (00:16→17:49)
[2018-05-25] MEDS: ALBUTEROL SULFATE 2.5 MG/3 ML NEBU NEB SCH ×4 (01:24→20:16)
[2018-05-25] MEDS: IPRATROPIUM BROMIDE 0.5 MG/2.5 ML NEBU NEB SCH ×4 (01:24→20:16)
[2018-05-25] MEDS: GLUCERNA 1.2 1000ML LIQUID GT PRN ×2 (04:12→18:00)
[2018-05-25] MEDS: POLYVINYL ALCOHOL OPHT DROPS 15 ML BOTTLE OP SCH ×3 (05:49→21:01)
[2018-05-25] MEDS: FAMOTIDINE 40 MG TABLET GT SCH (05:49)
[2018-05-25] MEDS: FERROUS SULFATE 330 MG/7.5 ML UDC- FOR SA ONLY GT SCH ×3 (05:49→21:01)
[2018-05-25 08:06] VITALS: BP 125/61
[2018-05-25] MEDS: LOSARTAN POTASSIUM 50 MG TABLET GT SCH (09:00)
[2018-05-25] MEDS: HYDROGEN PEROXIDE 3% 118 ML BOTTLE TP SCH ×2 (09:00→21:00)
[2018-05-25] MEDS: METOPROLOL TARTRATE 50 MG TABLET GT SCH ×2 (09:00→20:56)
[2018-05-25] MEDS: ENOXAPARIN SODIUM 80 MG/0.8 ML DISP.SYRIN SQ SCH ×2 (09:00→21:02)
[2018-05-25] MEDS: ASPIRIN 81 MG TAB.CHEW GT SCH (09:00)
[2018-05-25] MEDS: VALPROIC ACID 250 MG/5 ML LIQUID UDC GT SCH ×2 (09:00→20:55)
[2018-05-25] MEDS: MUPIROCIN 2% OINT 22 GM TUBE TP SCH ×2 (09:00→21:00)
[2018-05-25] MEDS: LACOSAMIDE 200 MG TABLET XX SCH ×2 (09:00→21:01)
[2018-05-25] MEDS: LEVETIRACETAM 500 MG/5 ML LIQUID UDC GT SCH ×2 (09:00→20:55)
[2018-05-25] MEDS: COLLAGENASE OINT 30 GM TUBE TP SCH ×2 (09:00→21:01)
[2018-05-25] MEDS ORDERED: PIPERACILLIN SODIUM/TAZOBACTAM 4.5 G in IV DEXTROSE 5% 50 ML IV SCH (16:30)
[2018-05-25 20:16] VITALS: BP 138/73
[2018-05-25] MEDS: ASCORBIC ACID 500 MG TABLET GT SCH (20:57)
[2018-05-25] MEDS: MULTIVITAMINS,THERAPEUTIC TABLET GT SCH (20:57)
[2018-05-25] MEDS: PROTEIN SUPPLEMENT (PROSTAT) 30 ML LIQUID GT SCH (20:57)
[2018-05-25] MEDS: ZINC SULFATE 220 MG CAPSULE GT SCH (20:57)
[2018-05-25] MEDS: ATORVASTATIN CALCIUM 80 MG TABLET PO SCH (20:57)
[2018-05-25] MEDS: PIPERACILLIN/TAZOBACTAM/D5W 50 ML IV SCH (22:00)
[2018-05-26] MEDS: METOCLOPRAMIDE HCL 10 MG/10 ML UDC GT SCH ×4 (00:21→17:03)
[2018-05-26] MEDS: BLOOD SUGAR DIAGNOSTIC 1 EACH STRIP VI SCH ×4 (00:21→17:03)
[2018-05-26] MEDS: IPRATROPIUM BROMIDE 0.5 MG/2.5 ML NEBU NEB SCH ×4 (01:42→19:23)
[2018-05-26] MEDS: ALBUTEROL SULFATE 2.5 MG/3 ML NEBU NEB SCH ×4 (01:42→19:23)
--- NOTE | 2018-05-26 01:55 | NUR ---
Started on Zosyn IV for UTI very slowly , no adverse reactions noted. IV site on left foot due to upper extremities DVT. Patient is afebrile, cordova catheter draining well to yellow urine, good daniel care rendered, kept clean and comfortable.
[2018-05-26] MEDS: GLUCERNA 1.2 1000ML LIQUID GT PRN (03:02)
--- NOTE | 2018-05-26 04:02 | NUR ---
Changed treatment to Right ear pressure sore to desitin barrier cream and cover with dry dressing every shift x 21 days.
[2018-05-26] MEDS: COD LIVER OIL/ZINC OXIDE OINT 113 GM TUBE TOP SCH ×3 (04:58→21:55)
[2018-05-26] MEDS: POLYVINYL ALCOHOL OPHT DROPS 15 ML BOTTLE OP SCH ×3 (05:06→21:57)
[2018-05-26] MEDS: FERROUS SULFATE 330 MG/7.5 ML UDC- FOR SA ONLY GT SCH ×3 (05:06→21:57)
[2018-05-26] MEDS ORDERED: NORMAL SALINE FLUSH 10 ML DISP.SYRIN IV SCH (06:00)
[2018-05-26] MEDS: PIPERACILLIN/TAZOBACTAM/D5W 50 ML IV SCH (06:17)
[2018-05-26] MEDS: FAMOTIDINE 40 MG TABLET GT SCH (06:19)
[2018-05-26] MEDS ORDERED: NORMAL SALINE FLUSH 10 ML DISP.SYRIN IV PRN (07:27)
[2018-05-26 08:06] VITALS: BP 116/52
[2018-05-26] MEDS: ENOXAPARIN SODIUM 80 MG/0.8 ML DISP.SYRIN SQ SCH ×2 (09:00→21:00)
[2018-05-26] MEDS: LOSARTAN POTASSIUM 50 MG TABLET GT SCH (09:42)
[2018-05-26] MEDS: LEVETIRACETAM 500 MG/5 ML LIQUID UDC GT SCH ×2 (09:43→21:54)
[2018-05-26] MEDS: VALPROIC ACID 250 MG/5 ML LIQUID UDC GT SCH ×2 (09:43→21:54)
[2018-05-26] MEDS: METOPROLOL TARTRATE 50 MG TABLET GT SCH ×2 (09:44→21:55)
[2018-05-26] MEDS: MUPIROCIN 2% OINT 22 GM TUBE TP SCH ×2 (09:44→21:56)
[2018-05-26] MEDS: HYDROGEN PEROXIDE 3% 118 ML BOTTLE TP SCH ×2 (09:44→21:56)
[2018-05-26] MEDS: COLLAGENASE OINT 30 GM TUBE TP SCH ×2 (09:45→21:57)
[2018-05-26] MEDS: LACOSAMIDE 200 MG TABLET XX SCH ×2 (09:45→21:57)
[2018-05-26] MEDS: ASPIRIN 81 MG TAB.CHEW GT SCH (09:47)
[2018-05-26] MEDS: AMPICILLIN IV 1 G in IV NORMAL SALINE 50 ML IV SCH ×2 (16:06→22:13)
--- NOTE | 2018-05-26 19:25 | NUR ---
Pt received on HT-50 vent with the following settings of AC-14, Vt-500, PEEP+5, FIO2-2LPM bleed-in, trached with Shiley#6 DCT trach, which is in the place and secure. No s/s of respiratory distress noted. Airway care done, pt responded to physical stimuli. In-line HHN tx with 2.5mg Albuterol+0.5mg Atrovent given, no adverse reaction noted. HME changed. Resus. bag and back up trach at bedside. Vent and alarms checked and reset.
[2018-05-26 20:38] VITALS: BP 113/64
[2018-05-26] MEDS ORDERED: MUPIROCIN 2% OINT 22 GM TUBE NS SCH (21:00)
[2018-05-26] MEDS: ZINC SULFATE 220 MG CAPSULE GT SCH (21:55)
[2018-05-26] MEDS: MULTIVITAMINS,THERAPEUTIC TABLET GT SCH (21:55)
[2018-05-26] MEDS: PROTEIN SUPPLEMENT (PROSTAT) 30 ML LIQUID GT SCH (21:55)
[2018-05-26] MEDS: ASCORBIC ACID 500 MG TABLET GT SCH (21:55)
[2018-05-26] MEDS: ATORVASTATIN CALCIUM 80 MG TABLET PO SCH (21:55)
[2018-05-27] MEDS: METOCLOPRAMIDE HCL 10 MG/10 ML UDC GT SCH ×4 (00:30→17:12)
[2018-05-27] MEDS: BLOOD SUGAR DIAGNOSTIC 1 EACH STRIP VI SCH ×4 (00:30→17:20)
[2018-05-27] MEDS: IPRATROPIUM BROMIDE 0.5 MG/2.5 ML NEBU NEB SCH ×4 (00:58→19:53)
[2018-05-27] MEDS: ALBUTEROL SULFATE 2.5 MG/3 ML NEBU NEB SCH ×4 (00:58→19:53)
[2018-05-27] MEDS: INSULIN REGULAR, HUMAN 300 UNIT/3 ML VIAL SQ PRN (01:16)
[2018-05-27] MEDS: GLUCERNA 1.2 1000ML LIQUID GT PRN ×2 (02:45→23:16)
[2018-05-27] MEDS: FERROUS SULFATE 330 MG/7.5 ML UDC- FOR SA ONLY GT SCH ×3 (05:43→21:59)
[2018-05-27] MEDS: POLYVINYL ALCOHOL OPHT DROPS 15 ML BOTTLE OP SCH ×3 (05:43→21:59)
[2018-05-27] MEDS: FAMOTIDINE 40 MG TABLET GT SCH (05:43)
[2018-05-27 08:07] VITALS: BP 104/60
--- NOTE | 2018-05-27 08:36 | NUR ---
RESIDENT IS STABLE ON CURRENT VENTILATOR SETTINGS OF AC 14 VT 500, PEEP 5 AND FIO2 BLED IN AT 3LPM IN LINE.TOLERATED IN LINE TX GIVEN WITHOUT COMPLICATION. SUCTIONED FOR MODERATE AMOUNT OF PALE WHITE SECRETIONS. TRACH SHILEY # 6 IS SECURE AND CLEAN. VENT IS WORKING WELL WITH ALARMS ACTIVE. CHANGED HUMIDIFIER FILTER.
[2018-05-27] MEDS: ASPIRIN 81 MG TAB.CHEW GT SCH (09:02)
[2018-05-27] MEDS: LOSARTAN POTASSIUM 50 MG TABLET GT SCH (09:02)
[2018-05-27] MEDS: LEVETIRACETAM 500 MG/5 ML LIQUID UDC GT SCH ×2 (09:03→21:58)
[2018-05-27] MEDS: VALPROIC ACID 250 MG/5 ML LIQUID UDC GT SCH ×2 (09:03→21:58)
[2018-05-27] MEDS: COLLAGENASE OINT 30 GM TUBE TP SCH ×2 (09:04→21:59)
[2018-05-27] MEDS: HYDROGEN PEROXIDE 3% 118 ML BOTTLE TP SCH ×2 (09:04→21:59)
[2018-05-27] MEDS: MUPIROCIN 2% OINT 22 GM TUBE TP SCH ×2 (09:04→21:59)
[2018-05-27] MEDS: COD LIVER OIL/ZINC OXIDE OINT 113 GM TUBE TOP SCH ×2 (09:04→21:59)
[2018-05-27] MEDS: METOPROLOL TARTRATE 50 MG TABLET GT SCH ×2 (09:04→21:58)
[2018-05-27] MEDS: ACETAMINOPHEN 650 MG/20 ML UDC- SA PATIENTS-PAIN ONLY GT PRN (09:05)
[2018-05-27] MEDS: LACOSAMIDE 200 MG TABLET XX SCH ×2 (09:06→21:59)
[2018-05-27] MEDS: ENOXAPARIN SODIUM 80 MG/0.8 ML DISP.SYRIN SQ SCH ×2 (09:09→21:04)
[2018-05-27] MEDS: AMPICILLIN IV 1 G in IV NORMAL SALINE 50 ML IV SCH ×2 (10:35→16:31)
--- NOTE | 2018-05-27 15:04 | NUR ---
Patient's seen by product owner Dr. Samuel today, for initial eye exam. See optometry notes in chart for details.
--- NOTE | 2018-05-27 19:53 | NUR ---
PT RECEIVED ON THE HT-50 VENT WITH THE FOLLOWING SETTINGS THAT ARE CHARTED ON THE MECHANICAL VENTILATOR NOTES. TRACH TUBE IS PATENT AND SECURED WITH TRACH TIES. HME CHANGED. HHN TX GIVEN PER MD ORDER"S AND WAS TOLERATED WELL WITH NO ADVERSE REACTIONS. SUCTIONED SMALL AMOUNTS OF THIN WHITE/YELLOW SECRETIONS. VENT ALARMS ARE ON AND AUDIBLE. VENT IS PLUGGED IN THE RED OUTLET. BACK UP TRACH AND AMBU BAG IS BY BEDSIDE. PT IS TOLERATING CURRENT VENT SETTINGS WELL AT THIS TIME WITH NO SOB NOTED. WILL CONTINUE TO MONITOR.
[2018-05-27 20:33] VITALS: BP 130/55
--- NOTE | 2018-05-27 21:00 | NUR ---
deborah moncada,n.p. ordered dc ampicillin,amoxicillin 500mg via gt q 8hrs x5 days for uti.
[2018-05-27] MEDS: ASCORBIC ACID 500 MG TABLET GT SCH (21:58)
[2018-05-27] MEDS: PROTEIN SUPPLEMENT (PROSTAT) 30 ML LIQUID GT SCH (21:58)
[2018-05-27] MEDS: MULTIVITAMINS,THERAPEUTIC TABLET GT SCH (21:58)
[2018-05-27] MEDS: ZINC SULFATE 220 MG CAPSULE GT SCH (21:59)
[2018-05-27] MEDS: ATORVASTATIN CALCIUM 80 MG TABLET PO SCH (21:59)
[2018-05-28] MEDS: METOCLOPRAMIDE HCL 10 MG/10 ML UDC GT SCH ×4 (00:45→17:37)
[2018-05-28] MEDS: BLOOD SUGAR DIAGNOSTIC 1 EACH STRIP VI SCH ×4 (00:45→17:47)
[2018-05-28] MEDS: AMOXICILLIN 250 MG/5 ML SUSPENSION 150ML BOTTLE GT SCH ×2 (01:15→05:33)
--- NOTE | 2018-05-28 01:30 | NUR ---
amoxicillin 500mg via gt given for uti, no adverse reaction noted, no respiratory distress noted.
[2018-05-28] MEDS: IPRATROPIUM BROMIDE 0.5 MG/2.5 ML NEBU NEB SCH ×4 (01:33→19:33)
[2018-05-28] MEDS: ALBUTEROL SULFATE 2.5 MG/3 ML NEBU NEB SCH ×4 (01:33→19:33)
[2018-05-28] MEDS: FERROUS SULFATE 330 MG/7.5 ML UDC- FOR SA ONLY GT SCH ×3 (05:33→21:36)
[2018-05-28] MEDS: FAMOTIDINE 40 MG TABLET GT SCH (05:34)
[2018-05-28] MEDS: POLYVINYL ALCOHOL OPHT DROPS 15 ML BOTTLE OP SCH ×3 (05:34→21:37)
[2018-05-28 08:07] VITALS: BP 137/46
[2018-05-28] MEDS: ENOXAPARIN SODIUM 80 MG/0.8 ML DISP.SYRIN SQ SCH ×2 (08:34→21:36)
[2018-05-28] MEDS: ASPIRIN 81 MG TAB.CHEW GT SCH (08:50)
[2018-05-28] MEDS: LOSARTAN POTASSIUM 50 MG TABLET GT SCH (08:51)
[2018-05-28] MEDS: LEVETIRACETAM 500 MG/5 ML LIQUID UDC GT SCH ×2 (08:51→20:41)
[2018-05-28] MEDS: VALPROIC ACID 250 MG/5 ML LIQUID UDC GT SCH ×2 (08:51→20:41)
[2018-05-28] MEDS: COD LIVER OIL/ZINC OXIDE OINT 113 GM TUBE TOP SCH ×2 (08:52→20:44)
[2018-05-28] MEDS: METOPROLOL TARTRATE 50 MG TABLET GT SCH ×2 (08:52→20:43)
[2018-05-28] MEDS: HYDROGEN PEROXIDE 3% 118 ML BOTTLE TP SCH ×2 (08:53→20:44)
[2018-05-28] MEDS: LACOSAMIDE 200 MG TABLET XX SCH ×2 (08:53→20:46)
[2018-05-28] MEDS: MUPIROCIN 2% OINT 22 GM TUBE TP SCH ×2 (08:53→20:44)
[2018-05-28] MEDS: COLLAGENASE OINT 30 GM TUBE TP SCH ×2 (08:53→20:44)
[2018-05-28] MEDS: ACETAMINOPHEN 650 MG/20 ML UDC- SA PATIENTS-PAIN ONLY GT PRN (08:55)
--- NOTE | 2018-05-28 11:23 | NUR ---
NEW ORDERS CARRIED OUT FROM DR. HAMMER .
--- NOTE | 2018-05-28 11:45 | NUR ---
Message left for dr. Pace for consultation .
[2018-05-28] MEDS: AMOXIcillin 500 MG CAPSULE PO SCH ×2 (13:29→21:37)
--- NOTE | 2018-05-28 15:43 | NUR ---
DR. SANDOVAL CALLED BACK AND AWARE OF CONSULTATION AND WILL SEE PT. AND AWARE OF EEG ORDER FROM DR. HAMMER.
--- NOTE | 2018-05-28 16:23 | NUR ---
[place] met with patient's Zoya and daughter Vignesh, and informed them that the next IDT meeting for the patient has been scheduled for Sunday, 06/04 at 11am.
[2018-05-28] MEDS: PROTEIN SUPPLEMENT (PROSTAT) 30 ML LIQUID GT SCH (17:37)
--- NOTE | 2018-05-28 18:23 | NUR ---
PT. WAS SEEN AND EXAMINED BY DR. SANDOVAL (NEUROLOGIST ) AND AWARE THAT EEG WILL BE DONE IN AM AND HE STATED THAT HE WILL BE BACK ON SUNDAY AND THAT UNTIL HE READS THE EEG HE WILL SPEAK TO PT'S FAMILY.
--- NOTE | 2018-05-28 19:33 | NUR ---
Received pt on HT-50 vent with current settings of AC 14, VT 500, Peep +5, FiO2 2LPM O2 Bleed-in, no changes to vent settings made at this time. Pt's trach is secured and patent. Pt tolerating vent settings well, no signs and symptoms of respiratory distress noted. Suctioned pt with moderate amount of thick pale-yellowish secretions. Changed HME. Vent alarms functioning and audible. Vent plugged in red outlet. Will continue to monitor pt throughout shift.
[2018-05-28 20:21] VITALS: BP 125/57
[2018-05-28] MEDS: ARGINAID GT SCH (20:43)
[2018-05-28] MEDS: MULTIVITAMINS,THERAPEUTIC TABLET GT SCH (20:43)
[2018-05-28] MEDS: ASCORBIC ACID 500 MG TABLET GT SCH (20:44)
[2018-05-28] MEDS: ZINC SULFATE 220 MG CAPSULE GT SCH (20:44)
--- NOTE | 2018-05-28 23:00 | NUR ---
Afebrile, on amoxicillin via gt for UTI, no adverse reactions noted, fluids given as ordered, , cordova catheter draining well to yellow urine, good catheter and daniel care, kept patient clean and comfortable.
[2018-05-29] MEDS: BLOOD SUGAR DIAGNOSTIC 1 EACH STRIP VI SCH ×4 (00:47→17:13)
[2018-05-29] MEDS: METOCLOPRAMIDE HCL 10 MG/10 ML UDC GT SCH ×4 (00:47→17:13)
[2018-05-29] MEDS: ALBUTEROL SULFATE 2.5 MG/3 ML NEBU NEB SCH ×4 (01:06→19:24)
[2018-05-29] MEDS: IPRATROPIUM BROMIDE 0.5 MG/2.5 ML NEBU NEB SCH ×4 (01:06→19:24)
[2018-05-29] MEDS: FERROUS SULFATE 330 MG/7.5 ML UDC- FOR SA ONLY GT SCH ×3 (05:14→21:38)
[2018-05-29] MEDS: POLYVINYL ALCOHOL OPHT DROPS 15 ML BOTTLE OP SCH ×3 (05:15→21:38)
[2018-05-29] MEDS: AMOXIcillin 500 MG CAPSULE PO SCH ×3 (05:15→21:38)
[2018-05-29] MEDS: FAMOTIDINE 40 MG TABLET GT SCH (05:30)
[2018-05-29] MEDS: GLUCERNA 1.2 1000ML LIQUID GT PRN (05:31)
[2018-05-29 06:51] LABS: BASOPHILS % (AUTO) 0.5 % (0.0-2.0); EOSINOPHILS # (AUTO) 0.1 K/uL (0.0-0.7); EOSINOPHILS % (AUTO) 1.4 % (0.0-7.0); HEMATOCRIT 26.2 % (36.7-47.1); HEMOGLOBIN 8.8 g/dL (12.5-16.3); LYMPHOCYTES # (AUTO) 1.1 K/uL (20.0-40.0); LYMPHOCYTES % (AUTO) 19.7 % (20.5-51.5); MEAN CORPUSCULAR HEMOGLOBIN 29.2 uug (23.8-33.4); MEAN CORPUSCULAR HGB CONC 33 g/dL (32.5-36.3); MEAN CORPUSCULAR VOLUME 87.4 fL (73.0-96.2); MONOCYTES # (AUTO) 0.4 K/uL (2.0-10.0); MONOCYTES % (AUTO) 6.7 % (0.0-11.0); NEUTROPHILS # (AUTO) 4.2 K/uL (1.8-8.9); NEUTROPHILS % (AUTO) 71.7 % (38.5-71.5); PLATELET COUNT (AUTO) 153 K/uL (152-348); WHITE BLOOD COUNT (AUTO) 5.8 K/uL (3.6-10.2)
[2018-05-29 07:06] LABS: IRON, SERUM 45 ug/dL (50-175); URIC ACID 3.1 mg/dL (3.5-7.2)
[2018-05-29 07:10] LABS: CARBON DIOXIDE 30 mmol/L (21-32); CHLORIDE 103 mmol/L (98-107); CREATININE 0.5 mg/dL (0.6-1.3); GLUCOSE 126 mg/dL (74-106); POTASSIUM 4.3 mmol/L (3.5-5.1); UREA NITROGEN, BLOOD 24 mg/dL (7-18); VALPROIC ACID 54 ug/mL (50-100)
[2018-05-29 08:07] VITALS: BP 124/65
[2018-05-29 08:35] VITALS: BP 124/65
[2018-05-29] MEDS: ASPIRIN 81 MG TAB.CHEW GT SCH (09:04)
[2018-05-29] MEDS: VALPROIC ACID 250 MG/5 ML LIQUID UDC GT SCH ×2 (09:05→20:24)
[2018-05-29] MEDS: LOSARTAN POTASSIUM 50 MG TABLET GT SCH (09:05)
[2018-05-29] MEDS: CHOLECALCIFEROL 1,000 UNIT TABLET GT SCH (09:06)
[2018-05-29] MEDS: LEVETIRACETAM 500 MG/5 ML LIQUID UDC GT SCH ×2 (09:06→20:24)
[2018-05-29] MEDS: PROTEIN SUPPLEMENT (PROSTAT) 30 ML LIQUID GT SCH ×2 (09:06→16:34)
[2018-05-29] MEDS: MUPIROCIN 2% OINT 22 GM TUBE TP SCH ×2 (09:07→20:26)
[2018-05-29] MEDS: COD LIVER OIL/ZINC OXIDE OINT 113 GM TUBE TOP SCH ×2 (09:07→20:25)
[2018-05-29] MEDS: METOPROLOL TARTRATE 50 MG TABLET GT SCH ×2 (09:08→21:38)
[2018-05-29] MEDS: LACOSAMIDE 200 MG TABLET XX SCH ×2 (09:13→20:26)
[2018-05-29] MEDS: HYDROGEN PEROXIDE 3% 118 ML BOTTLE TP SCH ×2 (09:13→20:26)
[2018-05-29] MEDS: COLLAGENASE OINT 30 GM TUBE TP SCH ×2 (09:13→20:26)
[2018-05-29] MEDS: ENOXAPARIN SODIUM 80 MG/0.8 ML DISP.SYRIN SQ SCH ×2 (12:03→21:38)
--- NOTE | 2018-05-29 17:30 | NUR ---
REPORTED FRESH BLOOD FROM MOUTH AFTER SUCTIONING PATIENT USING YANKAUER, ADVISE NOT TO USE YANKAUER INSTEAD USE SUCTION SWAB TO PREVENT MOUTH BLEEDING. WILL CONT. TO MONITOR. CN MADE AWARE
--- NOTE | 2018-05-29 19:26 | NUR ---
Received pt on HT-50 vent with the following settings of AC-14, Vt-500, PEEP+5, FIO2-2LPM bleed-in, trached with Shiley#6 DCT trach, which is in the place and secure. No respiratory distress noted. Airway care done, pt responded to physical stimuli(suction bloody secretion from pt's mouth, RN Tic aware). In-line HHN tx with 2.5mg Albuterol+0.5mg Atrovent given, no adverse reaction noted. Resus. bag and back up trach at bedside. Vent and alarms checked and reset.
--- NOTE | 2018-05-29 20:09 | NUR ---
Seen notes from Dr. Pace ( neuro) with no new orders at this time, pending EEG result.
[2018-05-29] MEDS: ATORVASTATIN 10 MG TABLET GT SCH (20:24)
[2018-05-29] MEDS: ASCORBIC ACID 500 MG TABLET GT SCH (20:24)
[2018-05-29] MEDS: ZINC SULFATE 220 MG CAPSULE GT SCH (20:25)
[2018-05-29] MEDS: MULTIVITAMINS,THERAPEUTIC TABLET GT SCH (20:25)
[2018-05-29] MEDS: ARGINAID GT SCH (20:25)
[2018-05-29 21:11] VITALS: BP 127/61
[2018-05-30] MEDS: GLUCERNA 1.2 1000ML LIQUID GT PRN (01:07)
[2018-05-30] MEDS: IPRATROPIUM BROMIDE 0.5 MG/2.5 ML NEBU NEB SCH ×4 (01:14→20:18)
[2018-05-30] MEDS: ALBUTEROL SULFATE 2.5 MG/3 ML NEBU NEB SCH ×4 (01:14→20:18)
--- NOTE | 2018-05-30 02:42 | NUR ---
Still on amoxicillin via gt for UTI, no adverse reactions noted, fluids given as ordered, , cordova catheter draining well to yellow urine, good catheter and daniel care, kept patient clean and comfortable. Addendum: 05/30/18 at 0658 by ROSINA HOFFMAN RN Patient is on bactroban to both nares for MRSA, no adverse reactions noted, on contact isolation precaution for MRSA nares, good handwashing done, kept patient clean and comfortable.
[2018-05-30] MEDS: FERROUS SULFATE 330 MG/7.5 ML UDC- FOR SA ONLY GT SCH ×3 (06:04→21:09)
[2018-05-30] MEDS: METOCLOPRAMIDE HCL 10 MG/10 ML UDC GT SCH ×5 (06:04→23:54)
[2018-05-30] MEDS: AMOXIcillin 500 MG CAPSULE PO SCH ×3 (06:05→21:09)
[2018-05-30] MEDS: POLYVINYL ALCOHOL OPHT DROPS 15 ML BOTTLE OP SCH ×3 (06:05→22:34)
[2018-05-30] MEDS: BLOOD SUGAR DIAGNOSTIC 1 EACH STRIP VI SCH ×4 (06:05→17:27)
[2018-05-30] MEDS: FAMOTIDINE 40 MG TABLET GT SCH (06:05)
--- NOTE | 2018-05-30 08:30 | NUR ---
BLOOD STILL NOTED ON MOUTH WHEN SUCTIONED USING SUCTION SWAB. WILL CONTINUE TO MONITOR BLEEDING
[2018-05-30 09:17] VITALS: BP 140/68
[2018-05-30] MEDS: LOSARTAN POTASSIUM 50 MG TABLET GT SCH (09:18)
[2018-05-30] MEDS: LEVETIRACETAM 500 MG/5 ML LIQUID UDC GT SCH ×2 (09:18→21:00)
[2018-05-30] MEDS: ASPIRIN 81 MG TAB.CHEW GT SCH (09:18)
[2018-05-30] MEDS: CHOLECALCIFEROL 1,000 UNIT TABLET GT SCH (09:20)
[2018-05-30] MEDS: VALPROIC ACID 250 MG/5 ML LIQUID UDC GT SCH ×2 (09:20→21:00)
[2018-05-30] MEDS: PROTEIN SUPPLEMENT (PROSTAT) 30 ML LIQUID GT SCH ×2 (09:20→17:28)
[2018-05-30] MEDS: MUPIROCIN 2% OINT 22 GM TUBE TP SCH ×2 (09:21→22:00)
[2018-05-30] MEDS: LACOSAMIDE 200 MG TABLET XX SCH ×2 (09:21→22:00)
[2018-05-30] MEDS: HYDROGEN PEROXIDE 3% 118 ML BOTTLE TP SCH ×2 (09:21→21:00)
[2018-05-30] MEDS: COD LIVER OIL/ZINC OXIDE OINT 113 GM TUBE TOP SCH ×2 (09:21→21:00)
[2018-05-30] MEDS: COLLAGENASE OINT 30 GM TUBE TP SCH ×3 (09:21→21:00)
[2018-05-30] MEDS: METOPROLOL TARTRATE 50 MG TABLET GT SCH ×2 (09:23→21:00)
[2018-05-30] MEDS: ENOXAPARIN SODIUM 80 MG/0.8 ML DISP.SYRIN SQ SCH ×2 (09:23→21:00)
--- NOTE | 2018-05-30 11:30 | NUR ---
SMALL AMOUNT OF SEROSANGUINEOUS SECRETION NOTED FROM THE MOUTH, KEPT AREA CLEAN AT ALL TIMES, USING SUCTION SWAB TO PREVENT FURTHER BLEEDING. WILL CONTINUE TO MONITOR
--- NOTE | 2018-05-30 12:30 | NUR ---
LOVENOX DOSE HELD THE DAY SHIFT RN HAS REPORTED THAT THE PATIENT IS WITH BLEEDING TO THE ORAL CAVITY /MOUTH AND UNABLE TO LOCATE WHERE THE BLEEDING ORIGINATES.WILL INFORM THE ATTENDING PHYSICIAN IN AM. WILL CONTINUE TO MONITOR
--- NOTE | 2018-05-30 14:00 | NUR ---
SMALL AMOUNT OF SEROSANGUINEOUS SECRETION NOTED FROM THE MOUTH, KEPT AREA CLEAN AT ALL TIMES, USING SUCTION SWAB TO PREVENT FURTHER BLEEDING. WILL CONTINUE TO MONITOR, CN MADE AWARE.
--- NOTE | 2018-05-30 18:31 | NUR ---
Seen by Mercy Lozano, new orders carried out.
--- NOTE | 2018-05-30 19:40 | NUR ---
Pt received in semi tellez position, obtunded, and unable to communicate. Pt received on continuous mechanical ventilation via Shiley 6 DCT trach. Pt is on Jose HT-50 ventilator with ordered settings of A/C-14, VT-500, PEEP+5, FIO2-28% 2LPM Bleed-in oxygen. Tolerating vent settings well. SpO2-100% Trach is patent and secured. In-line nebulizer treatments given as ordered, Q6 with Albuterol/Atrovent. Treatments tolerated well, no adverse reactions noted. Sxn'd and lavaged as needed. Suctioned moderate amounts of thick bloody secretions. HME changed. No signs or symptoms of respiratory distress. Ventilator alarm parameters checked, on and audible. Vent plugged into red emergency outlet. Bag/valve/mask and backup trach at bedside. Will continue to monitor.
[2018-05-30 20:00] VITALS: BP 140/68
[2018-05-30 20:11] VITALS: BP 110/54
[2018-05-30] MEDS: ATORVASTATIN 10 MG TABLET GT SCH (21:00)
[2018-05-30] MEDS: ASCORBIC ACID 500 MG TABLET GT SCH (21:01)
[2018-05-30] MEDS: ARGINAID GT SCH (21:01)
[2018-05-30] MEDS: MULTIVITAMINS,THERAPEUTIC TABLET GT SCH (21:01)
[2018-05-30] MEDS: ZINC SULFATE 220 MG CAPSULE GT SCH (21:08)
[2018-05-31] MEDS: BLOOD SUGAR DIAGNOSTIC 1 EACH STRIP VI SCH ×4 (00:30→17:31)
--- NOTE | 2018-05-31 00:32 | NUR ---
blood sugar 136mg/dl
[2018-05-31] MEDS: GLUCERNA 1.2 1000ML LIQUID GT PRN ×2 (01:02→12:25)
[2018-05-31] MEDS: IPRATROPIUM BROMIDE 0.5 MG/2.5 ML NEBU NEB SCH ×4 (01:31→20:23)
[2018-05-31] MEDS: ALBUTEROL SULFATE 2.5 MG/3 ML NEBU NEB SCH ×4 (01:31→20:23)
--- NOTE | 2018-05-31 02:27 | NUR ---
Still on amoxicillin via gt for UTI, no adverse reactions noted, fluids given as ordered, , cordova catheter draining well to yellow urine, good catheter and daniel care, kept patient clean and comfortable. Patient is on bactroban to both nares for MRSA, no adverse reactions noted, on contact isolation precaution for MRSA nares, good handwashing done, kept patient clean and comfortable. Also , noted with bleeding from mouth, kept clean and comfortable, will continue monitor.
[2018-05-31] MEDS: POLYVINYL ALCOHOL OPHT DROPS 15 ML BOTTLE OP SCH ×3 (05:35→22:18)
[2018-05-31] MEDS: FERROUS SULFATE 330 MG/7.5 ML UDC- FOR SA ONLY GT SCH ×3 (05:35→22:19)
[2018-05-31] MEDS: METOCLOPRAMIDE HCL 10 MG/10 ML UDC GT SCH ×3 (05:35→17:11)
[2018-05-31] MEDS: FAMOTIDINE 40 MG TABLET GT SCH (05:35)
[2018-05-31] MEDS: AMOXIcillin 500 MG CAPSULE PO SCH ×3 (05:36→22:18)
--- NOTE | 2018-05-31 06:33 | NUR ---
Bleeding from mouth is now minimal, no bleeding noted from trach when suctioning, no respiratory distress noted, 02 sat 99%. will continue monitor.
[2018-05-31 08:49] VITALS: BP 131/58
[2018-05-31] MEDS: ASPIRIN 81 MG TAB.CHEW GT SCH (08:50)
[2018-05-31] MEDS: LOSARTAN POTASSIUM 50 MG TABLET GT SCH (08:50)
[2018-05-31] MEDS: METOPROLOL TARTRATE 50 MG TABLET GT SCH ×2 (08:51→21:00)
[2018-05-31] MEDS: LEVETIRACETAM 500 MG/5 ML LIQUID UDC GT SCH ×2 (08:51→21:00)
[2018-05-31] MEDS: VALPROIC ACID 250 MG/5 ML LIQUID UDC GT SCH ×2 (08:51→21:00)
[2018-05-31] MEDS: HYDROGEN PEROXIDE 3% 118 ML BOTTLE TP SCH ×2 (08:52→21:00)
[2018-05-31] MEDS: PROTEIN SUPPLEMENT (PROSTAT) 30 ML LIQUID GT SCH ×2 (08:52→17:11)
[2018-05-31] MEDS: COD LIVER OIL/ZINC OXIDE OINT 113 GM TUBE TOP SCH ×2 (08:52→21:00)
[2018-05-31] MEDS: MUPIROCIN 2% OINT 22 GM TUBE TP SCH ×2 (08:52→21:00)
[2018-05-31] MEDS: COLLAGENASE OINT 30 GM TUBE TP SCH ×4 (08:52→21:00)
[2018-05-31] MEDS: CHOLECALCIFEROL 1,000 UNIT TABLET GT SCH (08:52)
[2018-05-31] MEDS: LACOSAMIDE 200 MG TABLET XX SCH ×2 (08:53→21:00)
[2018-05-31] MEDS: ENOXAPARIN SODIUM 80 MG/0.8 ML DISP.SYRIN SQ SCH ×2 (08:56→21:00)
--- NOTE | 2018-05-31 09:00 | NUR ---
LOVENOX 70mg/SQ hold D/T bleeding from mouth, no bleeding noted from trach when suctioning, will continue monitor.
--- NOTE | 2018-05-31 11:00 | NUR ---
minimal bleeding noted from the mouth, no bleeding noted from trach when suctioning, will continue monitor.
--- NOTE | 2018-05-31 13:30 | NUR ---
NO BLEEDING NOTED FROM THE MOUTH AT THIS TIME, NO TRACHEAL BLEEDING NOTED WELL, WILL CONTINUE TO MONITOR
--- NOTE | 2018-05-31 15:20 | NUR ---
PT ON HT-50 VENT, SETTINGS ARE AC 14, Vt-500, +5, 2 LPM BLEED IN. SHILEY 6 TRACH IS PATENT AND SECURED. NO SOB, DOING WELL ON CURRENT VENT SETTINGS. TXS TOLERATED WELL. SUCTIONED SMALL AMOUNTS OF WHITE THICK SECRETIONS. BVM AND BACK UP TRACH AT BEDSIDE. WILL CONTINUE TO MONITOR.
--- NOTE | 2018-05-31 15:30 | NUR ---
NO BLEEDING NOTED FROM THE MOUTH AT THIS TIME, NO TRACHEAL BLEEDING NOTED WELL, WILL CONTINUE TO MONITOR, KEPT CLEAN/DRY/COMFORTABLE
--- NOTE | 2018-05-31 17:30 | NUR ---
NO BLEEDING NOTED FROM THE MOUTH AT THIS TIME, NO TRACHEAL BLEEDING NOTED WELL, WILL CONTINUE TO MONITOR, KEPT CLEAN/DRY/COMFORTABLE
--- NOTE | 2018-05-31 17:51 | NUR ---
Seen by Jacob Lozano, new orders given to continue Amoxicillin 500mg via gtbue q8hrs total of 7 days (uti).
--- NOTE | 2018-05-31 18:02 | NUR ---
Family(, daughter,and niece) had a meeting with Dr. Pace.
--- NOTE | 2018-05-31 19:45 | NUR ---
Pt received in semi tellez position, obtunded, unable to communicate, and on continuous mechanical ventilation via Shiley 6 DCT trach. Pt is on Stevens HT-50 ventilator with ordered settings of A/C-14, VT-500, PEEP+5, FIO2-28% 2LPM Bleed-in oxygen. Tolerating vent settings well. SpO2-99% Trach is patent and secured. Minimal occluding volume technique used to assess cuff inflation. In-line nebulizer treatments given as ordered, Q6 with Albuterol/Atrovent. Treatments tolerated well, no adverse reactions noted. Sxn'd and lavaged as needed. Suctioned moderate amounts of thick yellowish secretions. HME changed. No signs or symptoms of respiratory distress. Ventilator alarm parameters checked, on and audible. Vent plugged into red emergency outlet. Bag/valve/mask and backup trach at bedside. Will continue to monitor.
[2018-05-31 20:14] VITALS: BP 117/47
[2018-05-31] MEDS: MULTIVITAMINS,THERAPEUTIC TABLET GT SCH (21:00)
[2018-05-31] MEDS: ATORVASTATIN 10 MG TABLET GT SCH (21:00)
[2018-05-31] MEDS: ZINC SULFATE 220 MG CAPSULE GT SCH (21:00)
[2018-05-31] MEDS: ASCORBIC ACID 500 MG TABLET GT SCH (21:00)
[2018-05-31] MEDS: ARGINAID GT SCH (21:00)
[2018-06-01] MEDS: METOCLOPRAMIDE HCL 10 MG/10 ML UDC GT SCH ×5 (00:27→23:10)
[2018-06-01] MEDS: BLOOD SUGAR DIAGNOSTIC 1 EACH STRIP VI SCH ×4 (00:39→18:06)
[2018-06-01] MEDS: IPRATROPIUM BROMIDE 0.5 MG/2.5 ML NEBU NEB SCH ×4 (01:29→20:10)
[2018-06-01] MEDS: ALBUTEROL SULFATE 2.5 MG/3 ML NEBU NEB SCH ×4 (01:29→20:10)
--- NOTE | 2018-06-01 05:58 | NUR ---
continue on amoxicillin for uti, no side effects noted, no respiratory distress noted.
[2018-06-01] MEDS: FERROUS SULFATE 330 MG/7.5 ML UDC- FOR SA ONLY GT SCH ×3 (05:59→22:18)
[2018-06-01] MEDS: POLYVINYL ALCOHOL OPHT DROPS 15 ML BOTTLE OP SCH ×3 (06:00→22:18)
[2018-06-01] MEDS: AMOXIcillin 500 MG CAPSULE PO SCH ×3 (06:01→22:28)
[2018-06-01] MEDS: FAMOTIDINE 40 MG TABLET GT SCH (06:02)
--- NOTE | 2018-06-01 06:48 | NUR ---
Shift End report: Patient VCS stable. Continue on antibiotics for UTI x7 days without s/s of adverse reaction from medication. Remain afebrile. Lovenox remain on HOLD d/t to mouth bleeding. No active bleeding noted during the shift. No s/s of hypo/hyperglycemia. 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 Wound care done as ordered. No significant event reported throughout the shift. All needs attended and met. Continue care as planned.
[2018-06-01 08:12] VITALS: BP 133/66
--- NOTE | 2018-06-01 08:23 | NUR ---
Patient endorsed on Jose HT-50 ventilator with prescribed settings of AC 14,Vt 500, +5, 2LpmO2 bleed in. He is trached with a Shiley 6 DCT: ELEVATOR TROUBLESHOOTER used for cuff assessment/inflation. Suctioned small amounts of thick pale yellow secretions. No signs or symptoms fo respiratory distress noted. Inline HHN tx administered as ordered and tolerated well. Spare trach at bedside. Will continue to monitor throughout shift.
[2018-06-01] MEDS: ASPIRIN 81 MG TAB.CHEW GT SCH (08:43)
[2018-06-01] MEDS: LOSARTAN POTASSIUM 50 MG TABLET GT SCH (08:43)
[2018-06-01] MEDS: LEVETIRACETAM 500 MG/5 ML LIQUID UDC GT SCH ×2 (08:44→21:00)
[2018-06-01] MEDS: VALPROIC ACID 250 MG/5 ML LIQUID UDC GT SCH ×2 (08:44→21:00)
[2018-06-01] MEDS: METOPROLOL TARTRATE 50 MG TABLET GT SCH ×2 (08:45→21:00)
[2018-06-01] MEDS: PROTEIN SUPPLEMENT (PROSTAT) 30 ML LIQUID GT SCH ×2 (08:46→17:47)
[2018-06-01] MEDS: CHOLECALCIFEROL 1,000 UNIT TABLET GT SCH (08:47)
[2018-06-01] MEDS: HYDROGEN PEROXIDE 3% 118 ML BOTTLE TP SCH ×2 (08:48→21:00)
[2018-06-01] MEDS: LACOSAMIDE 200 MG TABLET XX SCH ×2 (08:48→21:00)
[2018-06-01] MEDS: COD LIVER OIL/ZINC OXIDE OINT 113 GM TUBE TOP SCH ×2 (08:49→21:00)
[2018-06-01] MEDS: ENOXAPARIN SODIUM 80 MG/0.8 ML DISP.SYRIN SQ SCH ×2 (08:58→21:00)
[2018-06-01] MEDS: ACETAMINOPHEN 650 MG/20 ML UDC- SA PATIENTS-PAIN ONLY GT PRN (09:00)
[2018-06-01] MEDS: COLLAGENASE OINT 30 GM TUBE TP SCH ×2 (09:46→21:00)
[2018-06-01] MEDS: MUPIROCIN 2% OINT 22 GM TUBE TP SCH ×2 (09:46→21:00)
[2018-06-01] MEDS ORDERED: VENELEX OINTMENT TP SCH (16:40)
[2018-06-01 20:03] VITALS: BP 111/51
[2018-06-01] MEDS: VENELEX OINTMENT TP SCH (21:00)
[2018-06-01] MEDS: ARGINAID GT SCH (21:00)
[2018-06-01] MEDS: ZINC SULFATE 220 MG CAPSULE GT SCH (21:00)
[2018-06-01] MEDS: ASCORBIC ACID 500 MG TABLET GT SCH (21:00)
[2018-06-01] MEDS: ATORVASTATIN 10 MG TABLET GT SCH (21:00)
[2018-06-01] MEDS: MULTIVITAMINS,THERAPEUTIC TABLET GT SCH (21:00)
[2018-06-02] MEDS: BLOOD SUGAR DIAGNOSTIC 1 EACH STRIP VI SCH ×4 (00:22→18:04)
[2018-06-02] MEDS: INSULIN REGULAR, HUMAN 300 UNIT/3 ML VIAL SQ PRN (00:28)
[2018-06-02] MEDS: IPRATROPIUM BROMIDE 0.5 MG/2.5 ML NEBU NEB SCH ×4 (02:06→19:08)
[2018-06-02] MEDS: ALBUTEROL SULFATE 2.5 MG/3 ML NEBU NEB SCH ×4 (02:06→19:08)
[2018-06-02] MEDS: FERROUS SULFATE 330 MG/7.5 ML UDC- FOR SA ONLY GT SCH ×3 (05:12→21:35)
[2018-06-02] MEDS: METOCLOPRAMIDE HCL 10 MG/10 ML UDC GT SCH ×3 (05:12→17:55)
[2018-06-02] MEDS: AMOXIcillin 500 MG CAPSULE PO SCH ×3 (05:12→21:36)
[2018-06-02] MEDS: POLYVINYL ALCOHOL OPHT DROPS 15 ML BOTTLE OP SCH ×3 (05:12→21:35)
[2018-06-02] MEDS: FAMOTIDINE 40 MG TABLET GT SCH (05:48)
--- NOTE | 2018-06-02 06:02 | NUR ---
continue on amoxicillin 500mg for uti, no adverse reaction noted, no respiratory distress noted.
[2018-06-02 08:12] VITALS: BP 148/64
[2018-06-02] MEDS: ASPIRIN 81 MG TAB.CHEW GT SCH (08:43)
[2018-06-02] MEDS: LOSARTAN POTASSIUM 50 MG TABLET GT SCH (08:45)
[2018-06-02] MEDS: VALPROIC ACID 250 MG/5 ML LIQUID UDC GT SCH ×2 (08:46→21:31)
[2018-06-02] MEDS: ENOXAPARIN SODIUM 80 MG/0.8 ML DISP.SYRIN SQ SCH (08:48)
[2018-06-02] MEDS: CHOLECALCIFEROL 1,000 UNIT TABLET GT SCH (08:49)
[2018-06-02] MEDS: LEVETIRACETAM 500 MG/5 ML LIQUID UDC GT SCH ×2 (08:49→21:31)
[2018-06-02] MEDS: PROTEIN SUPPLEMENT (PROSTAT) 30 ML LIQUID GT SCH ×2 (08:49→17:55)
[2018-06-02] MEDS: METOPROLOL TARTRATE 50 MG TABLET GT SCH ×2 (08:50→21:33)
[2018-06-02] MEDS: MUPIROCIN 2% OINT 22 GM TUBE TP SCH (08:51)
[2018-06-02] MEDS: HYDROGEN PEROXIDE 3% 118 ML BOTTLE TP SCH ×2 (08:51→21:34)
[2018-06-02] MEDS: ACETAMINOPHEN 650 MG/20 ML UDC- SA PATIENTS-PAIN ONLY GT PRN (08:52)
[2018-06-02] MEDS: LACOSAMIDE 200 MG TABLET XX SCH ×2 (09:02→21:35)
[2018-06-02] MEDS: VENELEX OINTMENT TP SCH ×2 (09:52→21:35)
[2018-06-02] MEDS: COD LIVER OIL/ZINC OXIDE OINT 113 GM TUBE TOP SCH ×2 (09:52→21:34)
[2018-06-02] MEDS: COLLAGENASE OINT 30 GM TUBE TP SCH ×2 (09:52→21:35)
[2018-06-02] MEDS: GLUCERNA 1.2 1000ML LIQUID GT PRN (11:39)
--- NOTE | 2018-06-02 19:10 | NUR ---
Received pt on HT-50 vent with the following settings of AC-14, Vt-500, PEEP+5, FIO2-2LPM bleed-in, trached with Shiley#6 DCT trach, which is in the place and secure. No s/s of respiratory distress noted. Airway care done, pt responded to physical stimuli. In-line HHN tx with 2.5mg Albuterol+0.5mg Atrovent given, no adverse reaction noted. Family were in the room. Resus. bag and back up trach at bedside. Vent and alarms checked and reset.
[2018-06-02 21:29] VITALS: BP 140/70
[2018-06-02] MEDS: ATORVASTATIN 10 MG TABLET GT SCH (21:32)
[2018-06-02] MEDS: ARGINAID GT SCH (21:33)
[2018-06-02] MEDS: MULTIVITAMINS,THERAPEUTIC TABLET GT SCH (21:33)
[2018-06-02] MEDS: ASCORBIC ACID 500 MG TABLET GT SCH (21:34)
[2018-06-02] MEDS: ZINC SULFATE 220 MG CAPSULE GT SCH (21:34)
[2018-06-03] MEDS: METOCLOPRAMIDE HCL 10 MG/10 ML UDC GT SCH ×4 (00:01→17:31)
[2018-06-03] MEDS: BLOOD SUGAR DIAGNOSTIC 1 EACH STRIP VI SCH ×4 (00:01→17:33)
[2018-06-03] MEDS: ALBUTEROL SULFATE 2.5 MG/3 ML NEBU NEB SCH ×4 (00:58→19:45)
[2018-06-03] MEDS: IPRATROPIUM BROMIDE 0.5 MG/2.5 ML NEBU NEB SCH ×4 (00:58→19:45)
[2018-06-03] MEDS: FERROUS SULFATE 330 MG/7.5 ML UDC- FOR SA ONLY GT SCH ×3 (05:35→21:31)
[2018-06-03] MEDS: POLYVINYL ALCOHOL OPHT DROPS 15 ML BOTTLE OP SCH ×3 (05:36→21:33)
[2018-06-03] MEDS: FAMOTIDINE 40 MG TABLET GT SCH (05:37)
[2018-06-03] MEDS: AMOXIcillin 500 MG CAPSULE PO SCH ×3 (05:48→22:34)
[2018-06-03] MEDS: GLUCERNA 1.2 1000ML LIQUID GT PRN (06:46)
[2018-06-03] MEDS: VALPROIC ACID 250 MG/5 ML LIQUID UDC GT SCH ×2 (09:01→21:27)
[2018-06-03] MEDS: ASPIRIN 81 MG TAB.CHEW GT SCH (09:01)
[2018-06-03] MEDS: LEVETIRACETAM 500 MG/5 ML LIQUID UDC GT SCH ×2 (09:01→21:28)
[2018-06-03] MEDS: PROTEIN SUPPLEMENT (PROSTAT) 30 ML LIQUID GT SCH ×2 (09:02→16:17)
[2018-06-03] MEDS: COLLAGENASE OINT 30 GM TUBE TP SCH ×2 (09:02→21:31)
[2018-06-03] MEDS: CHOLECALCIFEROL 1,000 UNIT TABLET GT SCH (09:02)
[2018-06-03] MEDS: LACOSAMIDE 200 MG TABLET XX SCH ×2 (09:02→21:31)
[2018-06-03] MEDS: METOPROLOL TARTRATE 50 MG TABLET GT SCH ×2 (09:02→21:29)
[2018-06-03] MEDS: HYDROGEN PEROXIDE 3% 118 ML BOTTLE TP SCH ×2 (09:02→21:30)
[2018-06-03] MEDS: VENELEX OINTMENT TP SCH ×2 (09:02→21:31)
[2018-06-03] MEDS: LOSARTAN POTASSIUM 50 MG TABLET GT SCH (09:02)
[2018-06-03] MEDS: COD LIVER OIL/ZINC OXIDE OINT 113 GM TUBE TOP SCH ×2 (09:02→21:30)
[2018-06-03 11:27] VITALS: BP 157/62
[2018-06-03] MEDS ORDERED: RIVAROXABAN 15 MG TABLET PO SCH (18:00)
[2018-06-03] MEDS ORDERED: RIVAROXABAN 15 MG TABLET GT SCH (18:00)
[2018-06-03 20:09] VITALS: BP 140/70
[2018-06-03] MEDS: RIVAROXABAN 15 MG TABLET PO SCH (21:00)
[2018-06-03] MEDS: ATORVASTATIN 10 MG TABLET GT SCH (21:28)
[2018-06-03] MEDS: ASCORBIC ACID 500 MG TABLET GT SCH (21:30)
[2018-06-03] MEDS: MULTIVITAMINS,THERAPEUTIC TABLET GT SCH (21:30)
[2018-06-03] MEDS: ARGINAID GT SCH (21:30)
[2018-06-03] MEDS: ZINC SULFATE 220 MG CAPSULE GT SCH (21:30)
[2018-06-04] MEDS: GLUCERNA 1.2 1000ML LIQUID GT PRN (00:20)
[2018-06-04] MEDS: METOCLOPRAMIDE HCL 10 MG/10 ML UDC GT SCH ×4 (00:21→17:10)
[2018-06-04] MEDS: BLOOD SUGAR DIAGNOSTIC 1 EACH STRIP VI SCH ×4 (00:21→17:21)
[2018-06-04] MEDS: ALBUTEROL SULFATE 2.5 MG/3 ML NEBU NEB SCH ×4 (02:07→19:08)
[2018-06-04] MEDS: IPRATROPIUM BROMIDE 0.5 MG/2.5 ML NEBU NEB SCH ×4 (02:07→19:08)
[2018-06-04] MEDS: FERROUS SULFATE 330 MG/7.5 ML UDC- FOR SA ONLY GT SCH ×3 (05:37→21:42)
[2018-06-04] MEDS: POLYVINYL ALCOHOL OPHT DROPS 15 ML BOTTLE OP SCH ×3 (05:39→21:42)
[2018-06-04] MEDS: AMOXIcillin 500 MG CAPSULE PO SCH (05:39)
[2018-06-04] MEDS: FAMOTIDINE 40 MG TABLET GT SCH (05:40)
[2018-06-04 08:22] VITALS: BP 110/53
[2018-06-04] MEDS: ASPIRIN 81 MG TAB.CHEW GT SCH (09:36)
[2018-06-04] MEDS: HYDROGEN PEROXIDE 3% 118 ML BOTTLE TP SCH ×2 (09:42→21:42)
[2018-06-04] MEDS: CHOLECALCIFEROL 1,000 UNIT TABLET GT SCH (09:42)
[2018-06-04] MEDS: LEVETIRACETAM 500 MG/5 ML LIQUID UDC GT SCH ×2 (09:42→21:39)
[2018-06-04] MEDS: COD LIVER OIL/ZINC OXIDE OINT 113 GM TUBE TOP SCH ×2 (09:42→21:42)
[2018-06-04] MEDS: VENELEX OINTMENT TP SCH ×2 (09:42→21:42)
[2018-06-04] MEDS: PROTEIN SUPPLEMENT (PROSTAT) 30 ML LIQUID GT SCH ×2 (09:42→17:10)
[2018-06-04] MEDS: VALPROIC ACID 250 MG/5 ML LIQUID UDC GT SCH ×2 (09:42→21:39)
[2018-06-04] MEDS: METOPROLOL TARTRATE 50 MG TABLET GT SCH ×2 (09:42→21:40)
[2018-06-04] MEDS: LOSARTAN POTASSIUM 50 MG TABLET GT SCH (09:42)
[2018-06-04] MEDS: LACOSAMIDE 200 MG TABLET XX SCH ×2 (09:43→21:42)
[2018-06-04] MEDS: COLLAGENASE OINT 30 GM TUBE TP SCH ×2 (09:43→21:42)
[2018-06-04] MEDS: INSULIN REGULAR, HUMAN 300 UNIT/3 ML VIAL SQ PRN ×2 (12:24→17:23)
--- NOTE | 2018-06-04 12:53 | NUR ---
Pharmacy Update from today's 06/04/18 IDT Meeting Note: Pt admitted 05/20/18 from acute rehab for continuation of care after sudden cardiac arrest and subsequent anoxic brain injury. Pt is vent dependent, bedbound and developed seizures after cardiac arrest. Was treated for VAP, UTI, sepsis before transfer to [facility]: Temp 98.5 BP 140/70 HR 96 LABS: (from 05/29/18) Wbc 5.8 H/H 8.8/26.2 Plt 153 Na 140 K 4.3 Cl 103 CO2 30 BUN/Scr 24/0.5 BS 126 Ca 8.3 MEDICATION USE REVIEWED: > Pt not on any anti-psych medications > Pt on Keppra 1500mg q12h since admit on 05/20/18, last calculated CrCl 133 ml/min, dose ok per renal fxn. > Pt on Vimpat 200mg q12h since admit 05/20/18, no seizures reported > Pt on Valproic acid 1000mg q12h since admit 05/20/18, no seizures at this time, Rx rec for baseline level, ordered 05/29/18 resulted 54 (50-100) within therapeutic range. No reported seizures > Pt on Cozaar 50mg daily since 05/20/18, Lopressor 50mg q12hr (increased from 25mg q12h on 05/21), and hydralazine 10mg PRN SBP >160. Hold parameters in effect. > Pt on famotidine 40mg daily for GI prophylaxis, ok per renal function. Remains on reglan 5mg q6h for continued gastroparesis maintenance treatment PRN MED USAGE: (since admit) Tylenol for pain/temp x0 Hydralazine used x0 NEW ORDERS NOTED: > Rx rec for d/c of midodrine PRN as BP has been within range and is on multiple HTN meds, possible lack of indication. agreed nand d/c'd 05/28 > Rx rec for valproic acid baseline level, MD agreed ordered and resulted, please see above > Pt treated for UTI: zosyn 05/25-05/26, ampicillin iv 05/26-05/27, amoxicillin 05/28-06/04 > Lipitor 80mg HS decreased to 10mg HS 05/28 > Vit D 1000 units daily added 05/28 > Prostat daily increased to BID 05/28 > Lovenox d/c'd, changed to xarelto 15mg daily for DVT treatment (per MD, used slightly lower treatment dose d/t pt predisposition for bleeds and persistent anemia Patient was reviewed and discussed at IDT, family not in attendance this week. Rx reported recent changes and recommendations with no further concerns or recommendations at this time. Will continue to follow
--- NOTE | 2018-06-04 15:15 | NUR ---
INTERDISCIPLINARY PLAN OF CARE CONFERENCE was held today. Patient's and daughter were invited to the meeting, but they were unable to attend. Irene Wesley PA-C and Dr. Milton, along with the Interdisciplinary Team, reviewed the current plan of care in detail. RN reported on patient's medical condition, medications, and treatment. See RN IDT conference notes. Pharmacist discussed changes in medications. See all disciplines IDT notes and physician's progress notes for additional details.
--- NOTE | 2018-06-04 19:10 | NUR ---
Received pt on HT-50 vent with the following settings of AC-14, Vt-500, PEEP+5, FIO2-2LPM bleed-in, trached with Shiley#6 DCT trach, which is in the place and secure. No distress noted. Airway care done, pt responded to physical stimuli. In-line HHN tx with 2.5mg Albuterol+0.5mg Atrovent given, no adverse reaction noted. Resus. bag and back up trach at bedside. Vent and alarms checked and reset.
[2018-06-04 20:30] VITALS: BP 113/62
[2018-06-04] MEDS: ATORVASTATIN 10 MG TABLET GT SCH (21:39)
[2018-06-04] MEDS: MULTIVITAMINS,THERAPEUTIC TABLET GT SCH (21:40)
[2018-06-04] MEDS: ARGINAID GT SCH (21:40)
[2018-06-04] MEDS: ASCORBIC ACID 500 MG TABLET GT SCH (21:40)
[2018-06-04] MEDS: ZINC SULFATE 220 MG CAPSULE GT SCH (21:40)
[2018-06-04] MEDS: RIVAROXABAN 15 MG TABLET PO SCH (21:55)
[2018-06-05] MEDS: METOCLOPRAMIDE HCL 10 MG/10 ML UDC GT SCH ×5 (00:35→23:16)
[2018-06-05] MEDS: BLOOD SUGAR DIAGNOSTIC 1 EACH STRIP VI SCH ×4 (00:36→17:49)
[2018-06-05] MEDS: ALBUTEROL SULFATE 2.5 MG/3 ML NEBU NEB SCH ×4 (00:58→19:25)
[2018-06-05] MEDS: IPRATROPIUM BROMIDE 0.5 MG/2.5 ML NEBU NEB SCH ×4 (00:58→19:25)
[2018-06-05] MEDS: GLUCERNA 1.2 1000ML LIQUID GT PRN (01:55)
[2018-06-05] MEDS: FERROUS SULFATE 330 MG/7.5 ML UDC- FOR SA ONLY GT SCH ×3 (05:16→22:00)
[2018-06-05] MEDS: POLYVINYL ALCOHOL OPHT DROPS 15 ML BOTTLE OP SCH ×3 (05:16→22:00)
[2018-06-05] MEDS: FAMOTIDINE 40 MG TABLET GT SCH (05:30)
--- NOTE | 2018-06-05 07:43 | NUR ---
PT RECEIVED ON HT-50 VENTILATOR TOLERATING CURRENT VENT SETTINGS FINE SHOWING NO SIGNS OF RESPIRATORY DISTRESS. TRACH IS PROPERLY SECURED AND INTACT. AIRWAY IS PATENT. BREATH SOUNDS RHONCHI. PRN SUCTIONING PERFORMED NEEDED. PT HAD MODERATE AMOUNT OF OFF WHITE YELLOWISH SECRETIONS. HEAD OF THE BED ELEVATED GREATER THAN 30 DEGREE ANGLE. VENT ALARM SET AND AUDIBLE. VENT PLUGGED IN RED OUTLET. PT COMFORTABLE
[2018-06-05 08:08] VITALS: BP 133/66
[2018-06-05] MEDS: ASPIRIN 81 MG TAB.CHEW GT SCH (09:56)
[2018-06-05] MEDS: VALPROIC ACID 250 MG/5 ML LIQUID UDC GT SCH ×2 (09:56→21:00)
[2018-06-05] MEDS: VENELEX OINTMENT TP SCH ×2 (09:56→21:00)
[2018-06-05] MEDS: LEVETIRACETAM 500 MG/5 ML LIQUID UDC GT SCH ×2 (09:56→21:00)
[2018-06-05] MEDS: CHOLECALCIFEROL 1,000 UNIT TABLET GT SCH (09:56)
[2018-06-05] MEDS: COD LIVER OIL/ZINC OXIDE OINT 113 GM TUBE TOP SCH ×2 (09:56→21:00)
[2018-06-05] MEDS: HYDROGEN PEROXIDE 3% 118 ML BOTTLE TP SCH ×2 (09:56→21:00)
[2018-06-05] MEDS: PROTEIN SUPPLEMENT (PROSTAT) 30 ML LIQUID GT SCH ×2 (09:56→17:49)
[2018-06-05] MEDS: COLLAGENASE OINT 30 GM TUBE TP SCH ×2 (09:56→21:00)
[2018-06-05] MEDS: LACOSAMIDE 200 MG TABLET XX SCH ×2 (09:57→21:00)
[2018-06-05] MEDS: LOSARTAN POTASSIUM 50 MG TABLET GT SCH (09:59)
[2018-06-05] MEDS: METOPROLOL TARTRATE 50 MG TABLET GT SCH ×2 (10:00→21:00)
[2018-06-05] MEDS: INSULIN REGULAR, HUMAN 300 UNIT/3 ML VIAL SQ PRN ×2 (12:39→17:52)
[2018-06-05 20:00] VITALS: BP 131/51
[2018-06-05] MEDS: MULTIVITAMINS,THERAPEUTIC TABLET GT SCH (21:00)
[2018-06-05] MEDS: ARGINAID GT SCH (21:00)
[2018-06-05] MEDS: ASCORBIC ACID 500 MG TABLET GT SCH (21:00)
[2018-06-05] MEDS: ZINC SULFATE 220 MG CAPSULE GT SCH (21:00)
[2018-06-05] MEDS: RIVAROXABAN 15 MG TABLET PO SCH (21:00)
[2018-06-05] MEDS: ATORVASTATIN 10 MG TABLET GT SCH (21:00)
[2018-06-06] MEDS: BLOOD SUGAR DIAGNOSTIC 1 EACH STRIP VI SCH ×4 (00:19→17:32)
[2018-06-06] MEDS: ALBUTEROL SULFATE 2.5 MG/3 ML NEBU NEB SCH ×4 (00:50→19:47)
[2018-06-06] MEDS: IPRATROPIUM BROMIDE 0.5 MG/2.5 ML NEBU NEB SCH ×4 (00:50→19:47)
[2018-06-06] MEDS: FAMOTIDINE 40 MG TABLET GT SCH (05:34)
[2018-06-06] MEDS: POLYVINYL ALCOHOL OPHT DROPS 15 ML BOTTLE OP SCH ×3 (05:35→21:50)
[2018-06-06] MEDS: METOCLOPRAMIDE HCL 10 MG/10 ML UDC GT SCH ×3 (05:36→17:29)
[2018-06-06] MEDS: FERROUS SULFATE 330 MG/7.5 ML UDC- FOR SA ONLY GT SCH ×3 (05:36→21:19)
[2018-06-06 08:08] VITALS: BP 135/75
[2018-06-06] MEDS: COD LIVER OIL/ZINC OXIDE OINT 113 GM TUBE TOP SCH ×2 (09:00→21:19)
[2018-06-06] MEDS: VALPROIC ACID 250 MG/5 ML LIQUID UDC GT SCH ×2 (09:00→21:15)
[2018-06-06] MEDS: LEVETIRACETAM 500 MG/5 ML LIQUID UDC GT SCH ×2 (09:00→21:15)
[2018-06-06] MEDS: LOSARTAN POTASSIUM 50 MG TABLET GT SCH (09:00)
[2018-06-06] MEDS: CHOLECALCIFEROL 1,000 UNIT TABLET GT SCH (09:00)
[2018-06-06] MEDS: HYDROGEN PEROXIDE 3% 118 ML BOTTLE TP SCH ×2 (09:00→21:19)
[2018-06-06] MEDS: PROTEIN SUPPLEMENT (PROSTAT) 30 ML LIQUID GT SCH ×2 (09:00→17:29)
[2018-06-06] MEDS: ASPIRIN 81 MG TAB.CHEW GT SCH (09:00)
[2018-06-06] MEDS: VENELEX OINTMENT TP SCH ×2 (09:00→21:19)
[2018-06-06] MEDS: LACOSAMIDE 200 MG TABLET XX SCH ×2 (09:00→21:19)
[2018-06-06] MEDS: METOPROLOL TARTRATE 50 MG TABLET GT SCH ×2 (09:00→21:17)
[2018-06-06] MEDS: COLLAGENASE OINT 30 GM TUBE TP SCH ×2 (09:00→21:19)
--- NOTE | 2018-06-06 09:00 | NUR ---
LT. BACK RED SPOT ,BLANCHABLE,NO SKIN BREAK NOTED WILL CONT. TO MONITOR.
--- NOTE | 2018-06-06 15:16 | NUR ---
NEW ORDER WAS CARRIED OUT FOR WOUND CARE CONSULTATION TO SACRAL WOUND.
[2018-06-06] MEDS: INSULIN REGULAR, HUMAN 300 UNIT/3 ML VIAL SQ PRN (17:33)
--- NOTE | 2018-06-06 18:00 | NUR ---
OBSERVED LEFT BACK RED SPOT HARDLY VISIBLE AT THIS TIME, WILL CONT. WITH TURNING NAD REPOSITIONING.
--- NOTE | 2018-06-06 19:45 | NUR ---
PT REMAIN ON CONTINUOUS VENT AC 14 VT 500 PEEP 5 FIO2 2LPM BLEED. IN LINE TX GIVEN WITH UD ALBUTEROL + UD ATROVENT ORDERED. SUCTION PRN. TRACH IN PLACED AND SECURED WITH TRACH TIE. BACK UP TRACH AND AMBU BAG AT BEDSIDE. VENT CHECKED, ALARMS WORKING WELL AND AUDIBLE. NO SIGNS OF RESPIRATORY DISTRESS NOTED AT THIS TIME. WILL CONTINUE TO MONITOR.
[2018-06-06 20:00] VITALS: BP 143/49
[2018-06-06] MEDS: ATORVASTATIN 10 MG TABLET GT SCH (21:16)
[2018-06-06] MEDS: ASCORBIC ACID 500 MG TABLET GT SCH (21:18)
[2018-06-06] MEDS: MULTIVITAMINS,THERAPEUTIC TABLET GT SCH (21:18)
[2018-06-06] MEDS: ZINC SULFATE 220 MG CAPSULE GT SCH (21:18)
[2018-06-06] MEDS: ARGINAID GT SCH (21:18)
[2018-06-06] MEDS: RIVAROXABAN 15 MG TABLET PO SCH (21:46)
[2018-06-07] MEDS: METOCLOPRAMIDE HCL 10 MG/10 ML UDC GT SCH ×4 (00:47→17:10)
[2018-06-07] MEDS: INSULIN REGULAR, HUMAN 300 UNIT/3 ML VIAL SQ PRN ×2 (00:48→05:04)
[2018-06-07] MEDS: ALBUTEROL SULFATE 2.5 MG/3 ML NEBU NEB SCH ×4 (01:20→18:45)
[2018-06-07] MEDS: IPRATROPIUM BROMIDE 0.5 MG/2.5 ML NEBU NEB SCH ×4 (01:20→18:45)
[2018-06-07] MEDS: POLYVINYL ALCOHOL OPHT DROPS 15 ML BOTTLE OP SCH ×3 (05:04→21:58)
[2018-06-07] MEDS: BLOOD SUGAR DIAGNOSTIC 1 EACH STRIP VI SCH ×4 (05:04→17:10)
[2018-06-07] MEDS: FAMOTIDINE 40 MG TABLET GT SCH (05:04)
[2018-06-07] MEDS: FERROUS SULFATE 330 MG/7.5 ML UDC- FOR SA ONLY GT SCH ×3 (05:04→21:58)
[2018-06-07 08:07] VITALS: BP 122/59
[2018-06-07 09:20] VITALS: BP 122/59
--- NOTE | 2018-06-07 09:30 | NUR ---
NEW LOCAL TX ORDERED FOR LEFT BACK RED SPOT (BLANCHABLE AT THIS TIME).ALSO NOTED WITH RT. BACK RED LINE (BLANCHABLE ) AT THIS TIME AND WITH NEW LOCAL TX CARRIED OUT.
[2018-06-07] MEDS: ASPIRIN 81 MG TAB.CHEW GT SCH (09:49)
[2018-06-07] MEDS: METOPROLOL TARTRATE 50 MG TABLET GT SCH ×2 (09:51→21:57)
[2018-06-07] MEDS: LOSARTAN POTASSIUM 50 MG TABLET GT SCH (09:51)
[2018-06-07] MEDS: VALPROIC ACID 250 MG/5 ML LIQUID UDC GT SCH ×2 (09:51→21:57)
[2018-06-07] MEDS: LEVETIRACETAM 500 MG/5 ML LIQUID UDC GT SCH ×2 (09:51→21:57)
[2018-06-07] MEDS: CHOLECALCIFEROL 1,000 UNIT TABLET GT SCH (09:51)
[2018-06-07] MEDS: PROTEIN SUPPLEMENT (PROSTAT) 30 ML LIQUID GT SCH ×2 (09:51→17:10)
[2018-06-07] MEDS: COD LIVER OIL/ZINC OXIDE OINT 113 GM TUBE TOP SCH ×2 (09:52→21:57)
[2018-06-07] MEDS: HYDROGEN PEROXIDE 3% 118 ML BOTTLE TP SCH ×2 (09:52→21:58)
[2018-06-07] MEDS: LACOSAMIDE 200 MG TABLET XX SCH ×2 (09:52→21:58)
[2018-06-07] MEDS: VENELEX OINTMENT TP SCH ×2 (09:52→21:58)
[2018-06-07] MEDS: COLLAGENASE OINT 30 GM TUBE TP SCH ×2 (09:52→21:58)
[2018-06-07] MEDS: COD LIVER OIL/ZINC OXIDE OINT 113 GM TUBE TP SCH ×4 (11:24→21:58)
--- NOTE | 2018-06-07 16:00 | NUR ---
PT'S VISITED AND ASKED TO SPEAK WITH DR. 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
[2018-06-07] MEDS: RIVAROXABAN 15 MG TABLET PO SCH (21:00)
[2018-06-07] MEDS: ASCORBIC ACID 500 MG TABLET GT SCH (21:57)
[2018-06-07] MEDS: ARGINAID GT SCH (21:57)
[2018-06-07] MEDS: ATORVASTATIN 10 MG TABLET GT SCH (21:57)
[2018-06-07] MEDS: ZINC SULFATE 220 MG CAPSULE GT SCH (21:57)
[2018-06-07] MEDS: MULTIVITAMINS,THERAPEUTIC TABLET GT SCH (21:57)
[2018-06-08] MEDS: BLOOD SUGAR DIAGNOSTIC 1 EACH STRIP VI SCH ×5 (00:50→23:15)
[2018-06-08] MEDS: METOCLOPRAMIDE HCL 10 MG/10 ML UDC GT SCH ×5 (00:50→23:15)
[2018-06-08] MEDS: IPRATROPIUM BROMIDE 0.5 MG/2.5 ML NEBU NEB SCH ×5 (01:17→20:12)
[2018-06-08] MEDS: ALBUTEROL SULFATE 2.5 MG/3 ML NEBU NEB SCH ×4 (01:17→20:05)
[2018-06-08 01:58] VITALS: BP 113/57
--- NOTE | 2018-06-08 03:41 | NUR ---
Afebrile, still on contact isolation for MRSA Nares, good handwashing observed. no signs of any respiratory distress noted. No signs of bleeding noted, no B/P or lab draw from both upper extremities d/t (+) DVT, handled very gently, cordova catheter draining well to yellow urine, good daniel care rendered, treatment done to sacral wound, Right ear stage 4 pressure sore and to the left and right back blanchable redness. On SCD compression device to both lower extremities and on Xarelto via gt for DVT prophylaxis.Kept patient clean and comfortable.
[2018-06-08] MEDS: FERROUS SULFATE 330 MG/7.5 ML UDC- FOR SA ONLY GT SCH ×3 (05:32→22:17)
[2018-06-08] MEDS: FAMOTIDINE 40 MG TABLET GT SCH (05:32)
[2018-06-08] MEDS: POLYVINYL ALCOHOL OPHT DROPS 15 ML BOTTLE OP SCH ×3 (05:32→22:17)
[2018-06-08] MEDS: GLUCERNA 1.2 1000ML LIQUID GT PRN (06:51)
--- NOTE | 2018-06-08 07:50 | NUR ---
Pt received in semi tellez position, obtunded, unable to communicate, and on continuous mechanical ventilation via Shiley 6 DCT trach. Pt is on Burnett HT-50 ventilator with ordered settings of A/C-14, VT-500, PEEP+5, FIO2-28% 2LPM Bleed-in oxygen. Tolerating vent settings well. SpO2-100% Trach is patent and secured. Minimal occluding volume technique used to assess cuff inflation. In-line nebulizer treatments given as ordered, Q6 with Albuterol/Atrovent. Treatments tolerated well, no adverse reactions noted. Sxn'd and lavaged as needed. Suctioned moderate amounts of thick white/yellow secretions. HME changed. PPE used. No signs or symptoms of respiratory distress. Ventilator alarm parameters checked, on and audible. Vent plugged into red emergency outlet. Bag/valve/mask and backup trach at bedside. Will continue to monitor.
[2018-06-08 08:11] VITALS: BP 136/68
[2018-06-08] MEDS: ASPIRIN 81 MG TAB.CHEW GT SCH (09:13)
[2018-06-08] MEDS: LEVETIRACETAM 500 MG/5 ML LIQUID UDC GT SCH ×2 (09:14→21:31)
[2018-06-08] MEDS: VALPROIC ACID 250 MG/5 ML LIQUID UDC GT SCH ×2 (09:14→21:31)
[2018-06-08] MEDS: LOSARTAN POTASSIUM 50 MG TABLET GT SCH (09:15)
[2018-06-08] MEDS: COD LIVER OIL/ZINC OXIDE OINT 113 GM TUBE TOP SCH ×2 (09:15→21:32)
[2018-06-08] MEDS: CHOLECALCIFEROL 1,000 UNIT TABLET GT SCH (09:15)
[2018-06-08] MEDS: PROTEIN SUPPLEMENT (PROSTAT) 30 ML LIQUID GT SCH ×2 (09:15→17:23)
[2018-06-08] MEDS: HYDROGEN PEROXIDE 3% 118 ML BOTTLE TP SCH ×2 (09:15→21:32)
[2018-06-08] MEDS: COD LIVER OIL/ZINC OXIDE OINT 113 GM TUBE TP SCH ×4 (09:15→21:32)
[2018-06-08] MEDS: LACOSAMIDE 200 MG TABLET XX SCH ×2 (09:16→21:32)
[2018-06-08] MEDS: METOPROLOL TARTRATE 50 MG TABLET GT SCH ×2 (09:16→21:31)
[2018-06-08] MEDS: VENELEX OINTMENT TP SCH ×2 (09:16→21:00)
[2018-06-08] MEDS: COLLAGENASE OINT 30 GM TUBE TP SCH ×2 (09:16→21:00)
[2018-06-08 20:00] VITALS: BP 136/53
[2018-06-08 21:00] VITALS: BP 136/66
[2018-06-08] MEDS: RIVAROXABAN 15 MG TABLET PO SCH (21:00)
[2018-06-08] MEDS: ATORVASTATIN 10 MG TABLET GT SCH (21:31)
[2018-06-08] MEDS: ASCORBIC ACID 500 MG TABLET GT SCH (21:32)
[2018-06-08] MEDS: MULTIVITAMINS,THERAPEUTIC TABLET GT SCH (21:32)
[2018-06-08] MEDS: ARGINAID GT SCH (21:32)
[2018-06-08] MEDS: ZINC SULFATE 220 MG CAPSULE GT SCH (21:32)
[2018-06-09] MEDS: IPRATROPIUM BROMIDE 0.5 MG/2.5 ML NEBU NEB SCH ×4 (02:10→19:37)
[2018-06-09] MEDS: ALBUTEROL SULFATE 2.5 MG/3 ML NEBU NEB SCH ×4 (02:10→19:37)
--- NOTE | 2018-06-09 05:17 | NUR ---
Patient received on Jose HT-50 vent with prescribed settings of AC 14,Vt 500, +5, 2LpmO2 bleed in. He is trached with a Shiley 6 DCT: WIRE HARNESS ASSEMBLER used for cuff assessment/inflation. Suctioned small amounts of thick pale yellow secretions. No signs or symptoms fo respiratory distress noted. Inline HHN treatment administered as ordered and tolerated well. Spare trach at bedside. Will continue to monitor.
[2018-06-09] MEDS: METOCLOPRAMIDE HCL 10 MG/10 ML UDC GT SCH ×3 (05:30→17:24)
[2018-06-09] MEDS: BLOOD SUGAR DIAGNOSTIC 1 EACH STRIP VI SCH ×3 (05:30→17:32)
[2018-06-09] MEDS: POLYVINYL ALCOHOL OPHT DROPS 15 ML BOTTLE OP SCH ×3 (05:30→21:33)
[2018-06-09] MEDS: FERROUS SULFATE 330 MG/7.5 ML UDC- FOR SA ONLY GT SCH ×3 (05:30→21:33)
[2018-06-09] MEDS: FAMOTIDINE 40 MG TABLET GT SCH (05:35)
[2018-06-09 08:00] VITALS: BP 120/61
[2018-06-09] MEDS: ASPIRIN 81 MG TAB.CHEW GT SCH (09:29)
[2018-06-09] MEDS: VALPROIC ACID 250 MG/5 ML LIQUID UDC GT SCH ×2 (09:30→21:30)
[2018-06-09] MEDS: LOSARTAN POTASSIUM 50 MG TABLET GT SCH (09:30)
[2018-06-09] MEDS: METOPROLOL TARTRATE 50 MG TABLET GT SCH ×2 (09:31→21:31)
[2018-06-09] MEDS: LEVETIRACETAM 500 MG/5 ML LIQUID UDC GT SCH ×2 (09:31→21:30)
[2018-06-09] MEDS: HYDROGEN PEROXIDE 3% 118 ML BOTTLE TP SCH ×2 (09:32→21:32)
[2018-06-09] MEDS: PROTEIN SUPPLEMENT (PROSTAT) 30 ML LIQUID GT SCH ×2 (09:32→17:24)
[2018-06-09] MEDS: VENELEX OINTMENT TP SCH ×2 (09:32→21:32)
[2018-06-09] MEDS: CHOLECALCIFEROL 1,000 UNIT TABLET GT SCH (09:32)
[2018-06-09] MEDS: COD LIVER OIL/ZINC OXIDE OINT 113 GM TUBE TOP SCH ×2 (09:32→21:31)
[2018-06-09] MEDS: COD LIVER OIL/ZINC OXIDE OINT 113 GM TUBE TP SCH ×4 (09:32→21:32)
[2018-06-09] MEDS: COLLAGENASE OINT 30 GM TUBE TP SCH ×2 (09:33→21:32)
[2018-06-09] MEDS: LACOSAMIDE 200 MG TABLET XX SCH ×2 (09:33→21:32)
[2018-06-09] MEDS: INSULIN REGULAR, HUMAN 300 UNIT/3 ML VIAL SQ PRN ×2 (11:49→17:32)
--- NOTE | 2018-06-09 12:54 | NUR ---
SEEN BY AGUS ROCHA.
[2018-06-09] MEDS: GLUCERNA 1.2 1000ML LIQUID GT PRN (17:32)
--- NOTE | 2018-06-09 18:50 | NUR ---
NEW ORDER WAS CARRIED OUT TO D/C CONTACT ISOLATION MRSA IN NARES FROM AGUS Gonzáles
--- NOTE | 2018-06-09 19:39 | NUR ---
Received pt on HT-50 vent with the following settings of AC-14, Vt-500, PEEP+5, FIO2-2LPM bleed-in, trached with Shiley#6 DCT trach, which is in the place and secure. No respiratory distress noted. Airway care done, pt responded to physical stimuli. In-line HHN tx with 2.5mg Albuterol+0.5mg Atrovent given, no adverse reaction noted. HME changed. Resus. bag and back up trach at bedside. Vent and alarms checked and reset.
[2018-06-09 20:13] VITALS: BP 113/59
[2018-06-09] MEDS: ATORVASTATIN 10 MG TABLET GT SCH (21:30)
[2018-06-09] MEDS: ARGINAID GT SCH (21:31)
[2018-06-09] MEDS: ASCORBIC ACID 500 MG TABLET GT SCH (21:31)
[2018-06-09] MEDS: ZINC SULFATE 220 MG CAPSULE GT SCH (21:31)
[2018-06-09] MEDS: MULTIVITAMINS,THERAPEUTIC TABLET GT SCH (21:31)
[2018-06-09] MEDS: RIVAROXABAN 15 MG TABLET PO SCH (21:35)
[2018-06-10] MEDS: IPRATROPIUM BROMIDE 0.5 MG/2.5 ML NEBU NEB SCH ×4 (00:58→19:09)
[2018-06-10] MEDS: ALBUTEROL SULFATE 2.5 MG/3 ML NEBU NEB SCH ×4 (00:58→19:09)
[2018-06-10] MEDS: METOCLOPRAMIDE HCL 10 MG/10 ML UDC GT SCH ×4 (05:31→17:28)
[2018-06-10] MEDS: FAMOTIDINE 40 MG TABLET GT SCH (05:31)
[2018-06-10] MEDS: FERROUS SULFATE 330 MG/7.5 ML UDC- FOR SA ONLY GT SCH ×3 (05:31→22:22)
[2018-06-10] MEDS: POLYVINYL ALCOHOL OPHT DROPS 15 ML BOTTLE OP SCH ×3 (05:31→22:22)
[2018-06-10] MEDS: BLOOD SUGAR DIAGNOSTIC 1 EACH STRIP VI SCH ×3 (05:31→11:33)
--- NOTE | 2018-06-10 07:30 | NUR ---
Pt received in semi tellez position, obtunded, unable to communicate, and on continuous mechanical ventilation via Shiley 6 DCT trach. Pt is on Charles Mix HT-50 ventilator with ordered settings of A/C-14, VT-500, PEEP+5, FIO2-28% 2LPM Bleed-in oxygen. Tolerating vent settings well. SpO2-100% Trach is patent and secured. Minimal occluding volume technique used to assess cuff inflation. In-line nebulizer treatments given as ordered, Q6 with Albuterol/Atrovent. Treatments tolerated well, no adverse reactions noted. Sxn'd and lavaged as needed. Suctioned moderate amounts of thick white/yellow secretions. HME changed. PPE used. No signs or symptoms of respiratory distress. Ventilator alarm parameters checked, on and audible. Vent plugged into red emergency outlet. Bag/valve/mask and backup trach at bedside. Will continue to monitor.
[2018-06-10] MEDS: ASPIRIN 81 MG TAB.CHEW GT SCH (09:12)
[2018-06-10] MEDS: LOSARTAN POTASSIUM 50 MG TABLET GT SCH (09:16)
[2018-06-10] MEDS: LEVETIRACETAM 500 MG/5 ML LIQUID UDC GT SCH ×2 (09:16→20:38)
[2018-06-10] MEDS: VALPROIC ACID 250 MG/5 ML LIQUID UDC GT SCH ×2 (09:16→20:38)
[2018-06-10] MEDS: METOPROLOL TARTRATE 50 MG TABLET GT SCH ×2 (09:17→20:38)
[2018-06-10] MEDS: VENELEX OINTMENT TP SCH ×2 (09:17→20:39)
[2018-06-10] MEDS: HYDROGEN PEROXIDE 3% 118 ML BOTTLE TP SCH ×2 (09:17→20:39)
[2018-06-10] MEDS: CHOLECALCIFEROL 1,000 UNIT TABLET GT SCH (09:17)
[2018-06-10] MEDS: PROTEIN SUPPLEMENT (PROSTAT) 30 ML LIQUID GT SCH ×2 (09:17→17:28)
[2018-06-10] MEDS: LACOSAMIDE 200 MG TABLET XX SCH ×2 (09:17→20:40)
[2018-06-10] MEDS: COLLAGENASE OINT 30 GM TUBE TP SCH ×2 (09:17→20:39)
[2018-06-10] MEDS: COD LIVER OIL/ZINC OXIDE OINT 113 GM TUBE TP SCH ×4 (09:17→20:39)
[2018-06-10] MEDS: COD LIVER OIL/ZINC OXIDE OINT 113 GM TUBE TOP SCH ×2 (09:17→20:39)
[2018-06-10 09:19] VITALS: BP 130/64
[2018-06-10 09:25] VITALS: BP 123/70
[2018-06-10] MEDS: INSULIN REGULAR, HUMAN 300 UNIT/3 ML VIAL SQ PRN (11:33)
[2018-06-10] MEDS: GLUCERNA 1.2 1000ML LIQUID GT PRN (14:15)
--- NOTE | 2018-06-10 15:33 | NUR ---
New order carried out from Emelia chaudhari
--- NOTE | 2018-06-10 16:43 | NUR ---
Spoke with and daughter in law about flu shot and pneumococcal shot, family is ok with peumococcal shot but not the flu shot. Charge nurse Kina notified. Will ask the rounding doctor for order. Electronically signed by Margy Kaur RN
[2018-06-10] MEDS ORDERED: DEXTROSE 50% 50 ML DISP.SYRIN IV PRN (17:00)
[2018-06-10] MEDS ORDERED: INSULIN REGULAR, HUMAN 300 UNIT/3 ML VIAL SQ PRN (17:00)
--- NOTE | 2018-06-10 19:11 | NUR ---
Pt received on HT-50 vent with the following settings of AC-14, Vt-500, PEEP+5, FIO2-2LPM bleed-in, trached with Shiley#6 DCT trach, which is in the place and secure. No s/s of respiratory distress noted. Airway care done, pt responded to physical stimuli. In-line HHN tx with 2.5mg Albuterol+0.5mg Atrovent given, pt tolerated well. HME changed. Resus. bag and back up trach at bedside. Vent and alarms checked and reset.
[2018-06-10] MEDS: ARGINAID GT SCH (20:38)
[2018-06-10] MEDS: ASCORBIC ACID 500 MG TABLET GT SCH (20:38)
[2018-06-10] MEDS: MULTIVITAMINS,THERAPEUTIC TABLET GT SCH (20:38)
[2018-06-10] MEDS: ATORVASTATIN 10 MG TABLET GT SCH (20:38)
[2018-06-10] MEDS: ZINC SULFATE 220 MG CAPSULE GT SCH (20:39)
[2018-06-10] MEDS: RIVAROXABAN 15 MG TABLET PO SCH (20:56)
[2018-06-10 22:00] VITALS: BP 124/55
[2018-06-11] MEDS: ALBUTEROL SULFATE 2.5 MG/3 ML NEBU NEB SCH ×4 (00:58→20:20)
[2018-06-11] MEDS: IPRATROPIUM BROMIDE 0.5 MG/2.5 ML NEBU NEB SCH ×4 (00:58→20:20)
[2018-06-11] MEDS: METOCLOPRAMIDE HCL 10 MG/10 ML UDC GT SCH ×5 (01:18→23:03)
[2018-06-11] MEDS: FAMOTIDINE 40 MG TABLET GT SCH (05:18)
[2018-06-11] MEDS: POLYVINYL ALCOHOL OPHT DROPS 15 ML BOTTLE OP SCH ×3 (05:18→21:07)
[2018-06-11] MEDS: FERROUS SULFATE 330 MG/7.5 ML UDC- FOR SA ONLY GT SCH ×3 (05:18→21:07)
[2018-06-11] MEDS: BLOOD SUGAR DIAGNOSTIC 1 EACH STRIP VI SCH (05:18)
[2018-06-11] MEDS: GLUCERNA 1.2 1000ML LIQUID GT PRN (05:21)
[2018-06-11] MEDS ORDERED: [UNRECOGNIZED DRUG - REMARK] SQ PRN (06:30)
[2018-06-11] MEDS: ASPIRIN 81 MG TAB.CHEW GT SCH (08:16)
[2018-06-11] MEDS: LOSARTAN POTASSIUM 50 MG TABLET GT SCH (08:16)
[2018-06-11] MEDS: LEVETIRACETAM 500 MG/5 ML LIQUID UDC GT SCH ×2 (08:16→20:38)
[2018-06-11] MEDS: VALPROIC ACID 250 MG/5 ML LIQUID UDC GT SCH ×2 (08:16→20:37)
[2018-06-11] MEDS: COLLAGENASE OINT 30 GM TUBE TP SCH ×2 (08:17→20:39)
[2018-06-11] MEDS: METOPROLOL TARTRATE 50 MG TABLET GT SCH ×2 (08:17→20:48)
[2018-06-11] MEDS: VENELEX OINTMENT TP SCH ×2 (08:17→20:39)
[2018-06-11] MEDS: COD LIVER OIL/ZINC OXIDE OINT 113 GM TUBE TOP SCH ×2 (08:17→20:39)
[2018-06-11] MEDS: LACOSAMIDE 200 MG TABLET XX SCH ×2 (08:17→20:48)
[2018-06-11] MEDS: COD LIVER OIL/ZINC OXIDE OINT 113 GM TUBE TP SCH ×4 (08:17→20:39)
[2018-06-11] MEDS: HYDROGEN PEROXIDE 3% 118 ML BOTTLE TP SCH ×2 (08:17→20:39)
[2018-06-11] MEDS: CHOLECALCIFEROL 1,000 UNIT TABLET GT SCH (08:17)
[2018-06-11] MEDS: PROTEIN SUPPLEMENT (PROSTAT) 30 ML LIQUID GT SCH ×2 (08:17→17:07)
--- NOTE | 2018-06-11 12:00 | NUR ---
seen by nirmala odonnell.
[2018-06-11 12:22] VITALS: BP 146/71
--- NOTE | 2018-06-11 16:28 | NUR ---
DR. HAMMER WAS PAGED RE: REQUEST OF PT'S TO SPEAK TO HIM DIRECTLY DUE TO HE SPEAKS CYMRO AND SHE DOES TOO.
[2018-06-11 20:15] VITALS: BP 91/52
--- NOTE | 2018-06-11 20:20 | NUR ---
PT RECEIVED ON HT-50 VENTILATOR. CURRENT VENT SETTINGS ARE AC 14, VT 500, PEEP +5, O2 BLEED IN @ 2Lpm. NO CHANGES MADE AT THIS TIME. PT APPEARS TO BE TOLERATING SETTINGS WELL. TRACH IS PATENT AND SECURED WITH FIAM TRACH TIES. SUCTIONED SMALL AMOUNTS OF THICK, WHITE/YELLOW SECRETIONS. Q6 TX GIVEN ORDERED BY MD. TOLERATED WELL. NO ADVERSE REACTIONS NOTED. VENT ALARMS CHECKED, ARE ON AND FUNCTIONING PROPERLY. AMBU BAG AND BACK UP TRACH ARE AT BEDSIDE. NO S/S OF RESPIRATORY DISTRESS NOTED AT THIS TIME. VENT IS PLUGGED INTO RED EMERGENCY OUTLET. WILL CONTINUE TO MONITOR PT.
[2018-06-11] MEDS: ATORVASTATIN 10 MG TABLET GT SCH (20:38)
[2018-06-11] MEDS: ZINC SULFATE 220 MG CAPSULE GT SCH (20:39)
[2018-06-11] MEDS: MULTIVITAMINS,THERAPEUTIC TABLET GT SCH (20:39)
[2018-06-11] MEDS: ARGINAID GT SCH (20:39)
[2018-06-11] MEDS: ASCORBIC ACID 500 MG TABLET GT SCH (20:39)
[2018-06-11] MEDS: RIVAROXABAN 15 MG TABLET PO SCH (21:52)
[2018-06-12] MEDS: IPRATROPIUM BROMIDE 0.5 MG/2.5 ML NEBU NEB SCH ×4 (01:30→20:02)
[2018-06-12] MEDS: ALBUTEROL SULFATE 2.5 MG/3 ML NEBU NEB SCH ×4 (01:30→20:02)
[2018-06-12] MEDS: METOCLOPRAMIDE HCL 10 MG/10 ML UDC GT SCH ×3 (05:17→17:06)
[2018-06-12] MEDS: FERROUS SULFATE 330 MG/7.5 ML UDC- FOR SA ONLY GT SCH ×3 (05:17→21:04)
[2018-06-12] MEDS: POLYVINYL ALCOHOL OPHT DROPS 15 ML BOTTLE OP SCH ×3 (05:17→21:04)
[2018-06-12] MEDS: BLOOD SUGAR DIAGNOSTIC 1 EACH STRIP VI SCH (05:32)
[2018-06-12] MEDS: FAMOTIDINE 40 MG TABLET GT SCH (05:32)
[2018-06-12] MEDS: ASPIRIN 81 MG TAB.CHEW GT SCH (08:48)
[2018-06-12] MEDS: PROTEIN SUPPLEMENT (PROSTAT) 30 ML LIQUID GT SCH ×2 (08:55→17:05)
[2018-06-12] MEDS: CHOLECALCIFEROL 1,000 UNIT TABLET GT SCH (08:55)
[2018-06-12] MEDS: METOPROLOL TARTRATE 50 MG TABLET GT SCH ×2 (08:55→20:58)
[2018-06-12] MEDS: LOSARTAN POTASSIUM 50 MG TABLET GT SCH (08:55)
[2018-06-12] MEDS: VALPROIC ACID 250 MG/5 ML LIQUID UDC GT SCH ×2 (08:55→20:52)
[2018-06-12] MEDS: LEVETIRACETAM 500 MG/5 ML LIQUID UDC GT SCH ×2 (08:55→20:53)
[2018-06-12] MEDS: COLLAGENASE OINT 30 GM TUBE TP SCH ×2 (08:56→21:01)
[2018-06-12] MEDS: VENELEX OINTMENT TP SCH ×2 (08:56→21:00)
[2018-06-12] MEDS: COD LIVER OIL/ZINC OXIDE OINT 113 GM TUBE TP SCH ×4 (08:56→21:00)
[2018-06-12] MEDS: COD LIVER OIL/ZINC OXIDE OINT 113 GM TUBE TOP SCH ×2 (08:56→21:00)
[2018-06-12] MEDS: LACOSAMIDE 200 MG TABLET XX SCH ×2 (08:56→21:01)
[2018-06-12] MEDS: HYDROGEN PEROXIDE 3% 118 ML BOTTLE TP SCH ×2 (08:56→21:00)
[2018-06-12 20:09] VITALS: BP 102/57
[2018-06-12] MEDS: ATORVASTATIN 10 MG TABLET GT SCH (20:54)
[2018-06-12] MEDS: ARGINAID GT SCH (20:58)
[2018-06-12] MEDS: MULTIVITAMINS,THERAPEUTIC TABLET GT SCH (20:59)
[2018-06-12] MEDS: ASCORBIC ACID 500 MG TABLET GT SCH (20:59)
[2018-06-12] MEDS: ZINC SULFATE 220 MG CAPSULE GT SCH (20:59)
[2018-06-12] MEDS: RIVAROXABAN 15 MG TABLET PO SCH (21:03)
[2018-06-13] MEDS: METOCLOPRAMIDE HCL 10 MG/10 ML UDC GT SCH ×4 (00:17→18:04)
[2018-06-13] MEDS: GLUCERNA 1.2 1000ML LIQUID GT PRN ×2 (01:15→18:45)
[2018-06-13] MEDS: IPRATROPIUM BROMIDE 0.5 MG/2.5 ML NEBU NEB SCH ×4 (01:31→20:01)
[2018-06-13] MEDS: ALBUTEROL SULFATE 2.5 MG/3 ML NEBU NEB SCH ×4 (01:31→20:01)
[2018-06-13] MEDS: FERROUS SULFATE 330 MG/7.5 ML UDC- FOR SA ONLY GT SCH ×3 (05:11→22:09)
[2018-06-13] MEDS: POLYVINYL ALCOHOL OPHT DROPS 15 ML BOTTLE OP SCH ×3 (05:11→22:10)
[2018-06-13] MEDS: BLOOD SUGAR DIAGNOSTIC 1 EACH STRIP VI SCH (05:38)
[2018-06-13] MEDS: FAMOTIDINE 40 MG TABLET GT SCH (05:38)
[2018-06-13 08:00] VITALS: BP 127/67
[2018-06-13] MEDS: ASPIRIN 81 MG TAB.CHEW GT SCH (08:18)
[2018-06-13] MEDS: LOSARTAN POTASSIUM 50 MG TABLET GT SCH (08:19)
[2018-06-13] MEDS: VALPROIC ACID 250 MG/5 ML LIQUID UDC GT SCH ×2 (08:20→21:00)
[2018-06-13] MEDS: LEVETIRACETAM 500 MG/5 ML LIQUID UDC GT SCH ×2 (08:22→21:00)
[2018-06-13] MEDS: METOPROLOL TARTRATE 50 MG TABLET GT SCH ×2 (08:22→21:00)
[2018-06-13] MEDS: PROTEIN SUPPLEMENT (PROSTAT) 30 ML LIQUID GT SCH ×2 (08:22→17:00)
[2018-06-13] MEDS: COD LIVER OIL/ZINC OXIDE OINT 113 GM TUBE TP SCH ×4 (08:23→21:00)
[2018-06-13] MEDS: CHOLECALCIFEROL 1,000 UNIT TABLET GT SCH (08:23)
[2018-06-13] MEDS: COD LIVER OIL/ZINC OXIDE OINT 113 GM TUBE TOP SCH ×2 (08:23→21:00)
[2018-06-13] MEDS: COLLAGENASE OINT 30 GM TUBE TP SCH ×2 (08:24→21:00)
[2018-06-13] MEDS: VENELEX OINTMENT TP SCH ×2 (08:24→21:00)
[2018-06-13] MEDS: LACOSAMIDE 200 MG TABLET XX SCH ×2 (08:24→21:00)
[2018-06-13] MEDS: HYDROGEN PEROXIDE 3% 118 ML BOTTLE TP SCH ×2 (08:24→21:00)
[2018-06-13] MEDS ORDERED: DEXTROSE 50% 50 ML DISP.SYRIN IV PRN (11:15)
--- NOTE | 2018-06-13 15:47 | NUR ---
PT ON HT-50 VENT, SETTINGS ARE AC 14, Vt-500, +5, 2 LPM BLEED IN. SHILEY 6 TRACH IS PATENT AND SECURED, SITE IS CLEAN AND DRY. NO SOB, DOING WELL ON CURRENT VENT SETTINGS. TXS TOLERATED WELL. SUCTIONED SMALL AMOUNTS OF WHITE THICK SECRETIONS. BVM AND BACK UP TRACH AT BEDSIDE. WILL CONTINUE TO MONITOR.
--- NOTE | 2018-06-13 16:10 | NUR ---
Spoke to Dr Harper regarding pt's and daughter,wants to talks to him about the pt condition,Dr Harper stated he will try to talk to then on sunday.
--- NOTE | 2018-06-13 20:00 | NUR ---
RECEIVED PT ON CONTINUOUS MECHANICAL VENTILATION. CURRENT SETTINGS ARE A/C 14, VT 500, PEEP +5, O2 BLEED IN @ 2Lpm. NO CHANGES MADE AT THIS TIME. TRACH IS PATENT AND SECURED WITH FOAM TRACH TIES. SUCTIONED A MODERATE AMOUNT OF THICK, WHITE/YELLOW SECRETIONS. IN-LINE TX GIVEN ORDERED- TOLERATED WELL. VENT ALARMS CHECKED, ARE ON AND AUDIBLE. HME CHANGED. VENTILATOR CIRCUIT TO BE CHANGED AT A LATER TIME. AMBU BAG AND BACK UP TRACH ARE AT BEDSIDE. NO S/S OF RESPIRATORY DISTRESS NOTED. VENT IS PLUGGED INTO RED EMERGENCY OUTLET. WILL CONTINUE TO MONITOR PATIENT.
[2018-06-13 20:06] VITALS: BP 100/58
[2018-06-13] MEDS: MULTIVITAMINS,THERAPEUTIC TABLET GT SCH (21:00)
[2018-06-13] MEDS: ZINC SULFATE 220 MG CAPSULE GT SCH (21:00)
[2018-06-13] MEDS: RIVAROXABAN 15 MG TABLET PO SCH (21:00)
[2018-06-13] MEDS: ASCORBIC ACID 500 MG TABLET GT SCH (21:00)
[2018-06-13] MEDS: ARGINAID GT SCH (21:00)
[2018-06-13] MEDS: ATORVASTATIN 10 MG TABLET GT SCH (21:00)
[2018-06-14] MEDS: METOCLOPRAMIDE HCL 10 MG/10 ML UDC GT SCH ×4 (00:33→18:19)
[2018-06-14] MEDS: IPRATROPIUM BROMIDE 0.5 MG/2.5 ML NEBU NEB SCH ×4 (01:50→19:05)
[2018-06-14] MEDS: ALBUTEROL SULFATE 2.5 MG/3 ML NEBU NEB SCH ×4 (01:50→19:05)
[2018-06-14] MEDS: CHOLECALCIFEROL 1,000 UNIT TABLET GT SCH (05:17)
[2018-06-14] MEDS: FERROUS SULFATE 330 MG/7.5 ML UDC- FOR SA ONLY GT SCH ×3 (05:17→22:09)
[2018-06-14] MEDS: POLYVINYL ALCOHOL OPHT DROPS 15 ML BOTTLE OP SCH ×3 (05:17→22:09)
[2018-06-14] MEDS: FAMOTIDINE 40 MG TABLET GT SCH (05:54)
[2018-06-14] MEDS: BLOOD SUGAR DIAGNOSTIC 1 EACH STRIP VI SCH (05:54)
[2018-06-14 08:00] VITALS: BP 120/60
[2018-06-14] MEDS: ASPIRIN 81 MG TAB.CHEW GT SCH (09:10)
[2018-06-14] MEDS: LOSARTAN POTASSIUM 50 MG TABLET GT SCH (09:11)
[2018-06-14] MEDS: VALPROIC ACID 250 MG/5 ML LIQUID UDC GT SCH ×2 (09:11→20:48)
[2018-06-14] MEDS: METOPROLOL TARTRATE 50 MG TABLET GT SCH ×2 (09:12→20:50)
[2018-06-14] MEDS: LEVETIRACETAM 500 MG/5 ML LIQUID UDC GT SCH ×2 (09:12→20:48)
[2018-06-14] MEDS: HYDROGEN PEROXIDE 3% 118 ML BOTTLE TP SCH ×2 (09:13→20:53)
[2018-06-14] MEDS: COD LIVER OIL/ZINC OXIDE OINT 113 GM TUBE TOP SCH ×2 (09:13→20:53)
[2018-06-14] MEDS: LACOSAMIDE 200 MG TABLET XX SCH ×2 (09:13→20:54)
[2018-06-14] MEDS: PROTEIN SUPPLEMENT (PROSTAT) 30 ML LIQUID GT SCH ×2 (09:13→16:34)
[2018-06-14] MEDS ORDERED: MISCELLANEOUS MED TP SCH (10:00)
[2018-06-14] MEDS ORDERED: BALSAM PERU/CASTOR OIL 60 GM OINT...G. TP SCH (10:00)
--- NOTE | 2018-06-14 11:28 | NUR ---
WOUND CARE CONSULT: PT PRESENTS WITH STAGE 3 ULCER TO SACRUM, PRESENT ON ADMISSION WITH WOUND BED CHANGES TO INCLUDE LARGER SIZE. SACRAL ULCER MEASURES 5.5CM X 4.5CM X UTD WITH RED, BROWN AND YELLOW COLOR, SMALL AMOUNT OF [place] DRAINAGE, NO ODOR. PERIWOUND HAS BLANCHABLE REDNESS. DEFER TO SURGICAL TEAM ALREADY ON CASE. PT TO BE FOLLOWED BY SURGICAL TEAM. WILL SEE PRN. ALL SKIN PROTECTION AND PRESSURE ULCER PREVENTION MEASURES IN PLACE.
[2018-06-14] MEDS ORDERED: COLLAGENASE OINT 30 GM TUBE TP PRN (11:30)
[2018-06-14] MEDS ORDERED: Z GUARD REMEDY PASTE 57 GM TUBE TOP PRN (11:45)
[2018-06-14] MEDS: Z GUARD REMEDY PASTE 57 GM TUBE TOP SCH ×2 (12:31→20:53)
[2018-06-14] MEDS: ATORVASTATIN 10 MG TABLET GT SCH (20:49)
[2018-06-14] MEDS: MULTIVITAMINS,THERAPEUTIC TABLET GT SCH (20:51)
[2018-06-14] MEDS: ARGINAID GT SCH (20:51)
[2018-06-14] MEDS: ACETAMINOPHEN 650 MG/20 ML UDC- SA PATIENTS-FEVER ONLY GT SCH (20:52)
[2018-06-14] MEDS: ASCORBIC ACID 500 MG TABLET GT SCH (20:53)
[2018-06-14] MEDS: COLLAGENASE OINT 30 GM TUBE TP SCH (20:53)
[2018-06-14] MEDS: RIVAROXABAN 15 MG TABLET PO SCH (21:37)
[2018-06-14 22:00] VITALS: BP 107/50
[2018-06-15] MEDS: METOCLOPRAMIDE HCL 10 MG/10 ML UDC GT SCH ×4 (00:16→17:15)
[2018-06-15] MEDS: ALBUTEROL SULFATE 2.5 MG/3 ML NEBU NEB SCH ×4 (00:46→18:58)
[2018-06-15] MEDS: IPRATROPIUM BROMIDE 0.5 MG/2.5 ML NEBU NEB SCH ×4 (00:46→18:58)
--- NOTE | 2018-06-15 05:00 | NUR ---
HEMATURIA NOTED, IRRIGATED PER ORDER, WILL MONITOR.
[2018-06-15] MEDS: POLYVINYL ALCOHOL OPHT DROPS 15 ML BOTTLE OP SCH ×3 (06:12→21:00)
[2018-06-15] MEDS: FERROUS SULFATE 330 MG/7.5 ML UDC- FOR SA ONLY GT SCH ×3 (06:12→21:00)
[2018-06-15] MEDS: CHOLECALCIFEROL 1,000 UNIT TABLET GT SCH (06:12)
[2018-06-15] MEDS: FAMOTIDINE 40 MG TABLET GT SCH (06:12)
[2018-06-15] MEDS: BLOOD SUGAR DIAGNOSTIC 1 EACH STRIP VI SCH (06:13)
[2018-06-15] MEDS: LOSARTAN POTASSIUM 50 MG TABLET GT SCH (08:10)
[2018-06-15] MEDS: ASPIRIN 81 MG TAB.CHEW GT SCH (08:10)
[2018-06-15] MEDS: VALPROIC ACID 250 MG/5 ML LIQUID UDC GT SCH ×2 (08:10→20:57)
[2018-06-15] MEDS: METOPROLOL TARTRATE 50 MG TABLET GT SCH ×2 (08:11→20:58)
[2018-06-15] MEDS: LEVETIRACETAM 500 MG/5 ML LIQUID UDC GT SCH ×2 (08:11→20:58)
[2018-06-15] MEDS: ASCORBIC ACID 500 MG TABLET GT SCH ×2 (08:12→20:59)
[2018-06-15] MEDS: PROTEIN SUPPLEMENT (PROSTAT) 30 ML LIQUID GT SCH ×2 (08:12→17:15)
[2018-06-15] MEDS: ACETAMINOPHEN 650 MG/20 ML UDC- SA PATIENTS-FEVER ONLY GT SCH ×2 (08:12→21:35)
[2018-06-15] MEDS: Z GUARD REMEDY PASTE 57 GM TUBE TOP SCH ×3 (08:13→20:59)
[2018-06-15] MEDS: COD LIVER OIL/ZINC OXIDE OINT 113 GM TUBE TOP SCH ×3 (08:13→20:59)
[2018-06-15] MEDS: HYDROGEN PEROXIDE 3% 118 ML BOTTLE TP SCH ×2 (08:14→20:59)
[2018-06-15] MEDS: LACOSAMIDE 200 MG TABLET XX SCH ×2 (08:19→21:00)
[2018-06-15] MEDS: COLLAGENASE OINT 30 GM TUBE TP SCH ×2 (09:02→21:00)
[2018-06-15 09:27] VITALS: BP 96/47
[2018-06-15] MEDS: GLUCERNA 1.2 1000ML LIQUID GT PRN (11:34)
--- NOTE | 2018-06-15 12:00 | NUR ---
Seen and examined by Dr Beltrán aware pt has a episode of hematuria last night,no hematuria at this time,new orders noted and carried out.
--- NOTE | 2018-06-15 13:41 | NUR ---
VENT CHANGES MADE PER MD ORDER. PT IS NOW ON A RATE OF 12. PT IS TOLERATING CURRENT SETTINGS WELL, NO RESP. DISTRESS NOTED AT THIS TIME.
[2018-06-15] MEDS: ATORVASTATIN 10 MG TABLET GT SCH (20:58)
[2018-06-15] MEDS: MULTIVITAMINS,THERAPEUTIC TABLET GT SCH (20:59)
[2018-06-15] MEDS: ARGINAID GT SCH (20:59)
--- NOTE | 2018-06-15 21:30 | NUR ---
Tylenol removed from PYXIS by nurse loan processing supervisor.
[2018-06-15] MEDS: RIVAROXABAN 15 MG TABLET PO SCH (21:33)
[2018-06-15 22:32] VITALS: BP 123/56
[2018-06-16] MEDS: METOCLOPRAMIDE HCL 10 MG/10 ML UDC GT SCH ×4 (00:40→17:06)
[2018-06-16] MEDS: ALBUTEROL SULFATE 2.5 MG/3 ML NEBU NEB SCH ×4 (01:02→20:08)
[2018-06-16] MEDS: IPRATROPIUM BROMIDE 0.5 MG/2.5 ML NEBU NEB SCH ×4 (01:02→20:08)
[2018-06-16] MEDS: GLUCERNA 1.2 1000ML LIQUID GT PRN (05:28)
[2018-06-16] MEDS: FAMOTIDINE 40 MG TABLET GT SCH (05:41)
[2018-06-16] MEDS: FERROUS SULFATE 330 MG/7.5 ML UDC- FOR SA ONLY GT SCH ×3 (05:41→21:58)
[2018-06-16] MEDS: POLYVINYL ALCOHOL OPHT DROPS 15 ML BOTTLE OP SCH ×3 (05:41→21:58)
[2018-06-16] MEDS: BLOOD SUGAR DIAGNOSTIC 1 EACH STRIP VI SCH (05:41)
[2018-06-16] MEDS: CHOLECALCIFEROL 1,000 UNIT TABLET GT SCH (05:41)
[2018-06-16] MEDS: LOSARTAN POTASSIUM 50 MG TABLET GT SCH (08:53)
[2018-06-16] MEDS: ASPIRIN 81 MG TAB.CHEW GT SCH (08:53)
[2018-06-16] MEDS: LEVETIRACETAM 500 MG/5 ML LIQUID UDC GT SCH ×2 (08:54→20:31)
[2018-06-16] MEDS: VALPROIC ACID 250 MG/5 ML LIQUID UDC GT SCH ×2 (08:54→20:31)
[2018-06-16] MEDS: METOPROLOL TARTRATE 50 MG TABLET GT SCH ×2 (08:55→20:35)
[2018-06-16] MEDS: ASCORBIC ACID 500 MG TABLET GT SCH ×2 (08:56→20:32)
[2018-06-16] MEDS: Z GUARD REMEDY PASTE 57 GM TUBE TOP SCH ×3 (08:56→21:58)
[2018-06-16] MEDS: ACETAMINOPHEN 650 MG/20 ML UDC- SA PATIENTS-FEVER ONLY GT SCH (08:56)
[2018-06-16] MEDS: COD LIVER OIL/ZINC OXIDE OINT 113 GM TUBE TOP SCH ×2 (08:56→21:58)
[2018-06-16] MEDS: PROTEIN SUPPLEMENT (PROSTAT) 30 ML LIQUID GT SCH ×2 (08:56→17:06)
[2018-06-16] MEDS: LACOSAMIDE 200 MG TABLET XX SCH ×2 (08:57→20:36)
[2018-06-16] MEDS: COLLAGENASE OINT 30 GM TUBE TP SCH ×2 (08:57→21:58)
[2018-06-16] MEDS: HYDROGEN PEROXIDE 3% 118 ML BOTTLE TP SCH ×2 (08:57→20:36)
[2018-06-16 11:08] VITALS: BP 114/63
[2018-06-16] MEDS: ATORVASTATIN 10 MG TABLET GT SCH (20:31)
[2018-06-16] MEDS: ACETAMINOPHEN 325 MG TABLET-SA PATIENTS-PAIN ONLY PO SCH (20:32)
[2018-06-16] MEDS: RIVAROXABAN 15 MG TABLET PO SCH (20:33)
[2018-06-16] MEDS: MULTIVITAMINS,THERAPEUTIC TABLET GT SCH (20:35)
[2018-06-16] MEDS: ARGINAID GT SCH (20:35)
[2018-06-16] MEDS ORDERED: ACETAMINOPHEN 650 MG/20.3 ML LIQUID UDC PO SCH (21:00)
[2018-06-16 23:04] VITALS: BP 116/54
[2018-06-17] MEDS: IPRATROPIUM BROMIDE 0.5 MG/2.5 ML NEBU NEB SCH ×4 (01:30→20:00)
[2018-06-17] MEDS: ALBUTEROL SULFATE 2.5 MG/3 ML NEBU NEB SCH ×4 (01:31→20:00)
[2018-06-17] MEDS: GLUCERNA 1.2 1000ML LIQUID GT PRN ×2 (01:37→21:37)
[2018-06-17] MEDS: CHOLECALCIFEROL 1,000 UNIT TABLET GT SCH (05:00)
[2018-06-17] MEDS: METOCLOPRAMIDE HCL 10 MG/10 ML UDC GT SCH ×5 (05:00→23:18)
[2018-06-17] MEDS: FERROUS SULFATE 330 MG/7.5 ML UDC- FOR SA ONLY GT SCH ×3 (05:00→21:23)
[2018-06-17] MEDS: POLYVINYL ALCOHOL OPHT DROPS 15 ML BOTTLE OP SCH ×3 (05:00→21:23)
[2018-06-17] MEDS: BLOOD SUGAR DIAGNOSTIC 1 EACH STRIP VI SCH (05:59)
[2018-06-17] MEDS: FAMOTIDINE 40 MG TABLET GT SCH (05:59)
[2018-06-17 08:00] VITALS: BP 120/56
--- NOTE | 2018-06-17 09:11 | NUR ---
RESIDENT REMAIN ON CURRENT VENTILATOR SETTINGS OF AC 14 VT 500, PEEP 5 AND FIO2 BLED IN AT 3LPM IN LINE.TOLERATED IN LINE TX GIVEN WITHOUT COMPLICATION. SUCTIONED FOR MODERATE AMOUNT OF PALE WHITE SECRETIONS. TRACH SHILEY # 6 IS SECURE AND CLEAN. VENT IS WORKING WELL WITH ALARMS ACTIVE. CHANGED HUMIDIFIER FILTER.
[2018-06-17] MEDS: VALPROIC ACID 250 MG/5 ML LIQUID UDC GT SCH ×2 (09:23→21:24)
[2018-06-17] MEDS: LEVETIRACETAM 500 MG/5 ML LIQUID UDC GT SCH ×2 (09:23→21:24)
[2018-06-17] MEDS: ASPIRIN 81 MG TAB.CHEW GT SCH (09:23)
[2018-06-17] MEDS: LOSARTAN POTASSIUM 50 MG TABLET GT SCH (09:23)
[2018-06-17] MEDS: PROTEIN SUPPLEMENT (PROSTAT) 30 ML LIQUID GT SCH ×2 (09:24→17:14)
[2018-06-17] MEDS: METOPROLOL TARTRATE 50 MG TABLET GT SCH ×2 (09:24→21:24)
[2018-06-17] MEDS: Z GUARD REMEDY PASTE 57 GM TUBE TOP SCH ×3 (09:24→21:24)
[2018-06-17] MEDS: ACETAMINOPHEN 325 MG TABLET-SA PATIENTS-PAIN ONLY PO SCH ×2 (09:24→21:24)
[2018-06-17] MEDS: ASCORBIC ACID 500 MG TABLET GT SCH ×2 (09:24→21:24)
[2018-06-17] MEDS: HYDROGEN PEROXIDE 3% 118 ML BOTTLE TP SCH ×2 (09:24→21:23)
[2018-06-17] MEDS: COD LIVER OIL/ZINC OXIDE OINT 113 GM TUBE TOP SCH ×2 (09:24→21:24)
[2018-06-17] MEDS: COLLAGENASE OINT 30 GM TUBE TP SCH ×2 (09:24→21:23)
[2018-06-17] MEDS: LACOSAMIDE 200 MG TABLET XX SCH ×2 (09:24→21:28)
[2018-06-17 20:32] VITALS: BP 113/71
[2018-06-17] MEDS: ATORVASTATIN 10 MG TABLET GT SCH (21:24)
[2018-06-17] MEDS: MULTIVITAMINS,THERAPEUTIC TABLET GT SCH (21:24)
[2018-06-17] MEDS: ARGINAID GT SCH (21:25)
[2018-06-17] MEDS: RIVAROXABAN 15 MG TABLET PO SCH (21:27)
[2018-06-18] MEDS: IPRATROPIUM BROMIDE 0.5 MG/2.5 ML NEBU NEB SCH ×4 (01:32→19:08)
[2018-06-18] MEDS: ALBUTEROL SULFATE 2.5 MG/3 ML NEBU NEB SCH ×4 (01:32→19:08)
[2018-06-18] MEDS: POLYVINYL ALCOHOL OPHT DROPS 15 ML BOTTLE OP SCH ×3 (05:19→22:00)
[2018-06-18] MEDS: METOCLOPRAMIDE HCL 10 MG/10 ML UDC GT SCH ×4 (05:19→23:09)
[2018-06-18] MEDS: FERROUS SULFATE 330 MG/7.5 ML UDC- FOR SA ONLY GT SCH ×3 (05:19→22:00)
[2018-06-18] MEDS: CHOLECALCIFEROL 1,000 UNIT TABLET GT SCH (05:19)
[2018-06-18] MEDS: BLOOD SUGAR DIAGNOSTIC 1 EACH STRIP VI SCH (05:52)
[2018-06-18] MEDS: FAMOTIDINE 40 MG TABLET GT SCH (06:20)
[2018-06-18 07:24] LABS: BASOPHILS % (AUTO) 0.3 % (0.0-2.0); EOSINOPHILS % (AUTO) 0.6 % (0.0-7.0); HEMATOCRIT 26.3 % (36.7-47.1); HEMOGLOBIN 8.7 g/dL (12.5-16.3); LYMPHOCYTES # (AUTO) 0.8 K/uL (20.0-40.0); MEAN CORPUSCULAR HEMOGLOBIN 28.7 uug (23.8-33.4); MEAN CORPUSCULAR HGB CONC 33 g/dL (32.5-36.3); MEAN CORPUSCULAR VOLUME 86.7 fL (73.0-96.2); MONOCYTES # (AUTO) 0.7 K/uL (2.0-10.0); MONOCYTES % (AUTO) 13.9 % (0.0-11.0); NEUTROPHILS # (AUTO) 3.8 K/uL (1.8-8.9); NEUTROPHILS % (AUTO) 71.2 % (38.5-71.5); PLATELET COUNT (AUTO) 165 K/uL (152-348); RED BLOOD CELL COUNT(AUTO) 3.03 MIL/uL (4.06-5.63); WHITE BLOOD COUNT (AUTO) 5.4 K/uL (3.6-10.2)
[2018-06-18 07:40] LABS: ALANINE AMINOTRANSFERASE 126 U/L (16-63); ALKALINE PHOSPHATASE 101 U/L (50-136); ASPARTATE AMINOTRANSFERASE 74 U/L (15-37); BILIRUBIN,TOTAL 0.3 mg/dL (0.2-1.0); CARBON DIOXIDE 31 mmol/L (21-32); CHLORIDE 102 mmol/L (98-107); CREATININE 0.4 mg/dL (0.6-1.3); GLUCOSE 123 mg/dL (74-106); POTASSIUM 4.2 mmol/L (3.5-5.1); UREA NITROGEN, BLOOD 20 mg/dL (7-18)
--- NOTE | 2018-06-18 07:40 | NUR ---
RECEIVED PT ON CONTINUOUS VENT AC 12 VT 500 PEEP 5 FIO2 2LPM BLEED IN. IN LINE TX GIVEN WITH UD ALBUTEROL + UD ATROVENT ORDERED. SUCTION PRN. TRACH IN PLACED AND SECURED WITH TRACH TIE. BACK UP TRACH AND AMBU BAG AT BEDSIDE. VENT CHECKED, ALARMS WORKING WELL AND AUDIBLE. NO DISTRESS NOTED AT THIS TIME. WILL CONTINUE TO MONITOR.
[2018-06-18 08:00] VITALS: BP 101/50
[2018-06-18 08:05] VITALS: BP 135/69
[2018-06-18] MEDS: ASPIRIN 81 MG TAB.CHEW GT SCH (08:53)
[2018-06-18] MEDS: LOSARTAN POTASSIUM 50 MG TABLET GT SCH (08:54)
[2018-06-18] MEDS: VALPROIC ACID 250 MG/5 ML LIQUID UDC GT SCH ×2 (08:55→20:41)
[2018-06-18] MEDS: LEVETIRACETAM 500 MG/5 ML LIQUID UDC GT SCH ×2 (08:55→20:41)
[2018-06-18] MEDS: METOPROLOL TARTRATE 50 MG TABLET GT SCH ×2 (08:56→20:43)
[2018-06-18] MEDS: ACETAMINOPHEN 325 MG TABLET-SA PATIENTS-PAIN ONLY PO SCH ×2 (08:57→21:00)
[2018-06-18] MEDS: ASCORBIC ACID 500 MG TABLET GT SCH ×2 (08:57→20:44)
[2018-06-18] MEDS: PROTEIN SUPPLEMENT (PROSTAT) 30 ML LIQUID GT SCH ×2 (08:57→16:38)
[2018-06-18] MEDS: LACOSAMIDE 200 MG TABLET XX SCH ×2 (09:00→20:52)
[2018-06-18] MEDS: COD LIVER OIL/ZINC OXIDE OINT 113 GM TUBE TOP SCH ×2 (09:31→20:47)
[2018-06-18] MEDS: Z GUARD REMEDY PASTE 57 GM TUBE TOP SCH ×3 (09:31→20:47)
[2018-06-18] MEDS: HYDROGEN PEROXIDE 3% 118 ML BOTTLE TP SCH ×2 (09:31→20:47)
[2018-06-18] MEDS: COLLAGENASE OINT 30 GM TUBE TP SCH ×2 (09:31→20:47)
--- NOTE | 2018-06-18 14:20 | NUR ---
CAMDEN scheduled patient's initial dental cleaning with Mistaree at Dr. Gardner/Dr. Tierney's office [phone] for 07/08/2018. Family informed.
[2018-06-18] MEDS: GLUCERNA 1.2 1000ML LIQUID GT PRN (16:38)
--- NOTE | 2018-06-18 16:42 | NUR ---
CAMDEN met with patient's Zoya and informed her that the next IDT meeting for the patient is scheduled for Sunday06/25/18 at 11am. CAMDEN also checked in with Zoya to see how she was feeling. SW allowed Zoya to expressed her thoughts and feelings as she discussed some of the struggles she is having with trying to cope with her 's illness, and trying to balance her work life and caring for her . CAMDEN provided supportive counseling, along with educating Zoya about the importance of self-care. Zoya was receptive to CAMDEN. Zoya thanked CAMDEN for her time and support. CAMDEN reminded Zoya that individual supportive counseling and family support group is available, and Zoya expressed understanding and was receptive to these services. Zoya stated she will seek out SW, as needed. CAMDEN agreed.
--- NOTE | 2018-06-18 19:10 | NUR ---
Received pt on HT-50 vent with the following settings of AC-12, Vt-500, PEEP+5, FIO2-2LPM bleed-in, trached with Shiley#6 DCT trach, which is in the place and secure. No respiratory distress noted. Airway care done, pt responded to physical stimuli. In-line HHN tx with 2.5mg Albuterol+0.5mg Atrovent given, pt tolerated well. Resus. bag and back up trach at bedside. Vent and alarms checked and reset.
[2018-06-18 20:00] VITALS: BP 129/55
[2018-06-18] MEDS: ATORVASTATIN 10 MG TABLET GT SCH (20:43)
[2018-06-18] MEDS: MULTIVITAMINS,THERAPEUTIC TABLET GT SCH (20:44)
[2018-06-18] MEDS: ARGINAID GT SCH (20:44)
[2018-06-18] MEDS: RIVAROXABAN 15 MG TABLET PO SCH (20:47)
[2018-06-19] MEDS: IPRATROPIUM BROMIDE 0.5 MG/2.5 ML NEBU NEB SCH ×4 (01:00→19:36)
[2018-06-19] MEDS: ALBUTEROL SULFATE 2.5 MG/3 ML NEBU NEB SCH ×4 (01:00→19:36)
[2018-06-19] MEDS: METOCLOPRAMIDE HCL 10 MG/10 ML UDC GT SCH ×3 (06:19→17:19)
[2018-06-19] MEDS: CHOLECALCIFEROL 1,000 UNIT TABLET GT SCH (06:19)
[2018-06-19] MEDS: FERROUS SULFATE 330 MG/7.5 ML UDC- FOR SA ONLY GT SCH ×3 (06:19→21:03)
[2018-06-19] MEDS: FAMOTIDINE 40 MG TABLET GT SCH (06:20)
[2018-06-19] MEDS: BLOOD SUGAR DIAGNOSTIC 1 EACH STRIP VI SCH (06:20)
[2018-06-19] MEDS: POLYVINYL ALCOHOL OPHT DROPS 15 ML BOTTLE OP SCH ×3 (06:20→21:03)
--- NOTE | 2018-06-19 07:54 | NUR ---
PT RECEIVED TRACH TO VENT ON HT-50 VENT, SETTINGS ARE AC 12, VT 500, PEEP +5, 2 LPM BLEED IN. SHILEY #6 TRACH IS PATENT AND SECURED. VENT PARAMETERS AND ALARMS CHECKED, ALARMS ARE AUDIBLE. IN-LINE TX TOLERATED WELL, NO ADVERSE REACTION NOTED. PT IS TOLERATING VENT SETTINGS WELL, NO RESP. DISTRESS NOTED AT THIS TIME. HME CHANGED. AMBU-BAG AND BACK-UP TRACH AT BEDSIDE. SUCTION PRN. WILL CONTINUE TO MONITOR.
[2018-06-19 08:05] VITALS: BP 116/64
[2018-06-19] MEDS: ASPIRIN 81 MG TAB.CHEW GT SCH (08:26)
[2018-06-19] MEDS: LEVETIRACETAM 500 MG/5 ML LIQUID UDC GT SCH ×2 (08:27→20:40)
[2018-06-19] MEDS: LOSARTAN POTASSIUM 50 MG TABLET GT SCH (08:27)
[2018-06-19] MEDS: VALPROIC ACID 250 MG/5 ML LIQUID UDC GT SCH ×2 (08:27→20:39)
[2018-06-19] MEDS: PROTEIN SUPPLEMENT (PROSTAT) 30 ML LIQUID GT SCH ×2 (08:28→16:34)
[2018-06-19] MEDS: ASCORBIC ACID 500 MG TABLET GT SCH ×2 (08:28→20:42)
[2018-06-19] MEDS: HYDROGEN PEROXIDE 3% 118 ML BOTTLE TP SCH ×2 (08:29→20:45)
[2018-06-19] MEDS: ACETAMINOPHEN 325 MG TABLET-SA PATIENTS-PAIN ONLY PO SCH ×2 (08:29→21:00)
[2018-06-19] MEDS: METOPROLOL TARTRATE 50 MG TABLET GT SCH ×2 (08:37→20:42)
[2018-06-19] MEDS: LACOSAMIDE 200 MG TABLET XX SCH ×2 (09:01→20:45)
[2018-06-19] MEDS: COD LIVER OIL/ZINC OXIDE OINT 113 GM TUBE TOP SCH ×2 (09:01→20:44)
[2018-06-19] MEDS: COLLAGENASE OINT 30 GM TUBE TP SCH ×2 (09:01→20:45)
[2018-06-19] MEDS: Z GUARD REMEDY PASTE 57 GM TUBE TOP SCH ×3 (09:01→20:44)
[2018-06-19] MEDS: GLUCERNA 1.2 1000ML LIQUID GT PRN (16:34)
[2018-06-19] MEDS: ACETAMINOPHEN 650 MG/20 ML UDC- SA PATIENTS-PAIN ONLY GT PRN (17:00)
--- NOTE | 2018-06-19 18:00 | NUR ---
Seen and examined by Dr Beltrán,aware pt has a HR 115,and temp 99.4,aware no new orders, pt has new orders for sacral wound tx and new orders to get consent for excisional debridement of sacral wound done by [facility] Peck Np.
[2018-06-19] MEDS ORDERED: SODIUM HYPOCHLORITE 0.125% 473 ML BOTTLE TP PRN (18:15)
[2018-06-19] MEDS ORDERED: Z GUARD REMEDY PASTE 57 GM TUBE TOP PRN (18:30)
--- NOTE | 2018-06-19 18:30 | NUR ---
Zoya pt's sign the consent for excisional debridement of sacral wound,Ar pt's daughter at bedside.
--- NOTE | 2018-06-19 19:36 | NUR ---
Pt received on HT-50 ventilator with the following settings of AC 12, VT 500, Peep +5, FiO2 2LPM O2 Bleed-in, no changes to vent settings made at this time. Pt's trach is secured and patent. Pt tolerating vent settings well, no signs and symptoms of respiratory distress noted. Suctioned pt with moderate amount of thick pale-yellowish secretions. Changed HME. Vent alarms functioning and audible. Vent plugged in red outlet. Will continue to monitor pt throughout shift.
[2018-06-19 20:10] VITALS: BP 127/65
[2018-06-19] MEDS: ATORVASTATIN 10 MG TABLET GT SCH (20:41)
[2018-06-19] MEDS: ARGINAID GT SCH (20:42)
[2018-06-19] MEDS: MULTIVITAMINS,THERAPEUTIC TABLET GT SCH (20:42)
[2018-06-19] MEDS: RIVAROXABAN 15 MG TABLET PO SCH (20:43)
[2018-06-19] MEDS: SODIUM HYPOCHLORITE 0.125% 473 ML BOTTLE TP SCH (20:44)
[2018-06-20] MEDS: METOCLOPRAMIDE HCL 10 MG/10 ML UDC GT SCH ×4 (00:21→17:02)
[2018-06-20] MEDS: IPRATROPIUM BROMIDE 0.5 MG/2.5 ML NEBU NEB SCH ×4 (00:58→18:53)
[2018-06-20] MEDS: ALBUTEROL SULFATE 2.5 MG/3 ML NEBU NEB SCH ×4 (00:58→18:53)
--- NOTE | 2018-06-20 05:28 | NUR ---
lisset hilton was in, no new orders.
[2018-06-20] MEDS: FERROUS SULFATE 330 MG/7.5 ML UDC- FOR SA ONLY GT SCH ×3 (05:58→22:13)
[2018-06-20] MEDS: CHOLECALCIFEROL 1,000 UNIT TABLET GT SCH (05:58)
[2018-06-20] MEDS: BLOOD SUGAR DIAGNOSTIC 1 EACH STRIP VI SCH (05:59)
[2018-06-20] MEDS: POLYVINYL ALCOHOL OPHT DROPS 15 ML BOTTLE OP SCH ×3 (05:59→22:13)
[2018-06-20] MEDS: FAMOTIDINE 40 MG TABLET GT SCH (05:59)
[2018-06-20 08:00] VITALS: BP 120/63
[2018-06-20] MEDS: ASPIRIN 81 MG TAB.CHEW GT SCH (08:09)
[2018-06-20] MEDS: LOSARTAN POTASSIUM 50 MG TABLET GT SCH (08:10)
[2018-06-20] MEDS: VALPROIC ACID 250 MG/5 ML LIQUID UDC GT SCH ×2 (08:10→20:38)
[2018-06-20] MEDS: LEVETIRACETAM 500 MG/5 ML LIQUID UDC GT SCH ×2 (08:11→20:38)
[2018-06-20] MEDS: METOPROLOL TARTRATE 50 MG TABLET GT SCH ×2 (08:12→20:40)
[2018-06-20] MEDS: PROTEIN SUPPLEMENT (PROSTAT) 30 ML LIQUID GT SCH ×2 (08:12→16:46)
[2018-06-20] MEDS: ASCORBIC ACID 500 MG TABLET GT SCH ×2 (08:12→20:41)
[2018-06-20] MEDS: COD LIVER OIL/ZINC OXIDE OINT 113 GM TUBE TOP SCH ×2 (08:14→20:42)
[2018-06-20] MEDS: Z GUARD REMEDY PASTE 57 GM TUBE TOP SCH ×3 (08:14→20:42)
[2018-06-20] MEDS: ACETAMINOPHEN 325 MG TABLET-SA PATIENTS-PAIN ONLY PO SCH ×2 (08:14→20:42)
[2018-06-20] MEDS: SODIUM HYPOCHLORITE 0.125% 473 ML BOTTLE TP SCH ×2 (08:15→20:42)
[2018-06-20] MEDS: LACOSAMIDE 200 MG TABLET XX SCH ×2 (08:15→20:43)
[2018-06-20] MEDS: HYDROGEN PEROXIDE 3% 118 ML BOTTLE TP SCH ×2 (08:15→20:42)
[2018-06-20] MEDS: COLLAGENASE OINT 30 GM TUBE TP SCH ×2 (08:15→20:43)
[2018-06-20] MEDS: GLUCERNA 1.2 1000ML LIQUID GT PRN (10:35)
--- NOTE | 2018-06-20 17:26 | NUR ---
MESSAGE WAS LEFT IN CELLPHONE TO WAYNE ROBERTS (N.P ,SX) RE PT'S RESP. [facility] [employer] CONSENTED DEBRIDEMENT FOR SACRAL WOUND .
--- NOTE | 2018-06-20 18:30 | NUR ---
WAYNE HILARIO ) CALLED BACK AND WITH NEW ORDERS FOR SUPPLY TO DO SACRAL DEBRIDEMENT IN MORNING AT 7 AM.
--- NOTE | 2018-06-20 19:48 | NUR ---
Pt rec'd on HT-50 settings AC 12, VT 500, PEEP +5 and 2LPM bleed in O2. No resp. distress noted. Shiley 6 is patent and secure; B/U Shiley 6 and BVM are at bedside. Pt to be monitored throughout the shift and adm'd resp neb tx's per MD orders. HT-50 alarm parameters have been checked and remain audible.
[2018-06-20 20:22] VITALS: BP 110/52
[2018-06-20] MEDS: ATORVASTATIN 10 MG TABLET GT SCH (20:39)
[2018-06-20] MEDS: ARGINAID GT SCH (20:40)
[2018-06-20] MEDS: MULTIVITAMINS,THERAPEUTIC TABLET GT SCH (20:40)
[2018-06-20] MEDS: RIVAROXABAN 15 MG TABLET PO SCH (20:56)
[2018-06-21] MEDS: METOCLOPRAMIDE HCL 10 MG/10 ML UDC GT SCH ×5 (00:17→23:43)
[2018-06-21] MEDS: IPRATROPIUM BROMIDE 0.5 MG/2.5 ML NEBU NEB SCH ×4 (00:35→19:38)
[2018-06-21] MEDS: ALBUTEROL SULFATE 2.5 MG/3 ML NEBU NEB SCH ×4 (00:35→19:38)
[2018-06-21] MEDS: GLUCERNA 1.2 1000ML LIQUID GT PRN (03:00)
[2018-06-21] MEDS: FAMOTIDINE 40 MG TABLET GT SCH (05:56)
[2018-06-21] MEDS: CHOLECALCIFEROL 1,000 UNIT TABLET GT SCH (05:56)
[2018-06-21] MEDS: POLYVINYL ALCOHOL OPHT DROPS 15 ML BOTTLE OP SCH ×3 (05:56→22:23)
[2018-06-21] MEDS: FERROUS SULFATE 330 MG/7.5 ML UDC- FOR SA ONLY GT SCH ×3 (05:56→22:23)
[2018-06-21] MEDS: BLOOD SUGAR DIAGNOSTIC 1 EACH STRIP VI SCH (05:57)
[2018-06-21 08:04] VITALS: BP 130/68
[2018-06-21] MEDS: ASPIRIN 81 MG TAB.CHEW GT SCH (08:59)
[2018-06-21] MEDS: LEVETIRACETAM 500 MG/5 ML LIQUID UDC GT SCH ×2 (09:00→20:53)
[2018-06-21] MEDS: Z GUARD REMEDY PASTE 57 GM TUBE TOP SCH ×3 (09:00→20:55)
[2018-06-21] MEDS: ASCORBIC ACID 500 MG TABLET GT SCH ×2 (09:00→20:54)
[2018-06-21] MEDS ORDERED: LIDOCAINE 2%-EPI 1:100,000 20 ML VIAL IJ PRN (09:00)
[2018-06-21] MEDS: PROTEIN SUPPLEMENT (PROSTAT) 30 ML LIQUID GT SCH ×2 (09:00→16:57)
[2018-06-21] MEDS: VALPROIC ACID 250 MG/5 ML LIQUID UDC GT SCH ×2 (09:00→21:00)
[2018-06-21] MEDS: LOSARTAN POTASSIUM 50 MG TABLET GT SCH (09:00)
[2018-06-21] MEDS: ACETAMINOPHEN 325 MG TABLET-SA PATIENTS-PAIN ONLY PO SCH ×2 (09:00→20:55)
[2018-06-21] MEDS: METOPROLOL TARTRATE 50 MG TABLET GT SCH ×2 (09:00→20:53)
[2018-06-21] MEDS: COD LIVER OIL/ZINC OXIDE OINT 113 GM TUBE TOP SCH ×2 (09:00→20:55)
--- NOTE | 2018-06-21 09:00 | NUR ---
PT. WAS SEEN AND EXAMINED BY Singh ROBERTS (ALEXYS) AND DID SACRAL DEBRIDEMENT AND SPOKE TO PT'S DTR AND ALSO SHE GAVE CONSENT FOR SERIALS OF DEBRIDEMENT TO 2 NURSES BY PHONE.
--- NOTE | 2018-06-21 09:00 | NUR ---
WAYNE ROBERTS N.P(SX)DECIDED NOT TO USE LIDOCAINE 1% WITH EPINEPHRINE DURING DEBRIDEMENT.
--- NOTE | 2018-06-21 09:00 | NUR ---
MEDICATED ORDERED FOR PAIN ,PROCEDURE WELL TOLERATED..
[2018-06-21] MEDS: SODIUM HYPOCHLORITE 0.125% 473 ML BOTTLE TP SCH ×2 (09:01→20:55)
[2018-06-21] MEDS: COLLAGENASE OINT 30 GM TUBE TP SCH ×2 (09:01→20:56)
[2018-06-21] MEDS: LACOSAMIDE 200 MG TABLET XX SCH ×2 (09:01→20:57)
[2018-06-21] MEDS: HYDROGEN PEROXIDE 3% 118 ML BOTTLE TP SCH ×2 (09:01→20:55)
--- NOTE | 2018-06-21 18:00 | NUR ---
PT'S SIGNED CONSENT FOR SERIAL DEBRIDEMENT ON SACRAL WOUND AND DTR. PRESENT AT THIS TIME TOO.
--- NOTE | 2018-06-21 19:30 | NUR ---
Pt received in semi tellez position, obtunded, unable to communicate, and on continuous mechanical ventilation via Shiley 6 DCT trach. Pt is on Waldo HT-50 ventilator with ordered settings of A/C-12, VT-500, PEEP+5, FIO2- 2LPM Bleed-in oxygen. Tolerating vent settings well. SpO2-99% Trach is patent and secured. Minimal occluding volume technique used to assess cuff inflation. In-line nebulizer treatments given as ordered, Q6 with Albuterol/Atrovent. Treatments tolerated well, no adverse reactions noted. Sxn'd and lavaged as needed. Suctioned moderate amounts of thick white/yellow secretions. HME changed. PPE used. No signs or symptoms of respiratory distress. Ventilator alarm parameters checked, on and audible. Vent plugged into red emergency outlet. Bag/valve/mask and backup trach at bedside. Will continue to monitor.
--- NOTE | 2018-06-21 20:51 | NUR ---
Seen and examined by Luiza VALERIO) with no new order.
[2018-06-21] MEDS: ARGINAID GT SCH (20:53)
[2018-06-21] MEDS: ATORVASTATIN 10 MG TABLET GT SCH (20:53)
[2018-06-21] MEDS: MULTIVITAMINS,THERAPEUTIC TABLET GT SCH (20:54)
[2018-06-21] MEDS: RIVAROXABAN 15 MG TABLET PO SCH (20:57)
[2018-06-21 23:34] VITALS: BP 104/53
[2018-06-22] MEDS: SODIUM HYPOCHLORITE 0.125% 473 ML BOTTLE TP SCH ×3 (01:19→20:47)
[2018-06-22] MEDS ORDERED: SODIUM HYPOCHLORITE 0.125% 473 ML BOTTLE TP PRN (01:30)
[2018-06-22] MEDS: IPRATROPIUM BROMIDE 0.5 MG/2.5 ML NEBU NEB SCH ×4 (01:50→19:08)
[2018-06-22] MEDS: ALBUTEROL SULFATE 2.5 MG/3 ML NEBU NEB SCH ×4 (01:50→19:08)
[2018-06-22] MEDS: FERROUS SULFATE 330 MG/7.5 ML UDC- FOR SA ONLY GT SCH ×3 (05:30→21:00)
[2018-06-22] MEDS: FAMOTIDINE 40 MG TABLET GT SCH (05:30)
[2018-06-22] MEDS: CHOLECALCIFEROL 1,000 UNIT TABLET GT SCH (05:30)
[2018-06-22] MEDS: METOCLOPRAMIDE HCL 10 MG/10 ML UDC GT SCH ×4 (05:30→23:53)
[2018-06-22] MEDS: BLOOD SUGAR DIAGNOSTIC 1 EACH STRIP VI SCH (05:30)
[2018-06-22] MEDS: GLUCERNA 1.2 1000ML LIQUID GT PRN (05:30)
[2018-06-22] MEDS: POLYVINYL ALCOHOL OPHT DROPS 15 ML BOTTLE OP SCH ×3 (05:30→21:00)
--- NOTE | 2018-06-22 07:28 | NUR ---
Pt receive in semi tellez position, unable to communicate, responds to physical stimuli.. Continuous mechanical ventilation with vent: HT-50 settings: A/C 14, Vt 500, PEEP +5, FIO2 28% with 2 Lpm bleed in, tolerating settings well, no changes made to settings at this time.. Pt trach: Leonard 6 DCT, in place and secure with tie.. No respiratory distress noted at this time, will continue to monitor.. Vent alarms functioning normally at this time / on / audible.. BVM / back up trach at bedside, vent plugged in to red emergency outlet.. Addendum: 06/22/18 at 0849 by JEFFERSON VAZQUEZ RT RR 12
[2018-06-22] MEDS: LEVETIRACETAM 500 MG/5 ML LIQUID UDC GT SCH ×2 (08:01→20:44)
[2018-06-22] MEDS: VALPROIC ACID 250 MG/5 ML LIQUID UDC GT SCH ×2 (08:01→20:44)
[2018-06-22] MEDS: METOPROLOL TARTRATE 50 MG TABLET GT SCH ×2 (08:01→20:46)
[2018-06-22] MEDS: LOSARTAN POTASSIUM 50 MG TABLET GT SCH (08:01)
[2018-06-22] MEDS: ASPIRIN 81 MG TAB.CHEW GT SCH (08:01)
[2018-06-22] MEDS: ACETAMINOPHEN 325 MG TABLET-SA PATIENTS-PAIN ONLY PO SCH ×2 (08:02→20:47)
[2018-06-22] MEDS: LACOSAMIDE 200 MG TABLET XX SCH ×2 (08:02→20:51)
[2018-06-22] MEDS: COD LIVER OIL/ZINC OXIDE OINT 113 GM TUBE TOP SCH ×2 (08:02→20:47)
[2018-06-22] MEDS: ASCORBIC ACID 500 MG TABLET GT SCH ×2 (08:02→20:46)
[2018-06-22] MEDS: Z GUARD REMEDY PASTE 57 GM TUBE TOP SCH ×3 (08:02→20:47)
[2018-06-22] MEDS: HYDROGEN PEROXIDE 3% 118 ML BOTTLE TP SCH ×2 (08:02→20:47)
[2018-06-22] MEDS: PROTEIN SUPPLEMENT (PROSTAT) 30 ML LIQUID GT SCH ×2 (08:02→17:23)
[2018-06-22 08:04] VITALS: BP 117/56
[2018-06-22] MEDS: SILVER NITRATE APPLICATOR STICK EACH TP PRN ×2 (16:14→16:16)
--- NOTE | 2018-06-22 16:17 | NUR ---
LATE ENTRY:FOR 06/21/18 AT 0900 SILVER NITRITE STICKS WERE USED BY DURING DEBRIDEMENT.
--- NOTE | 2018-06-22 19:10 | NUR ---
Received pt on HT-50 vent with the following settings of AC-12, Vt-500, PEEP+5, FIO2-2LPM bleed-in, trached with Shiley#6 DCT trach, which is in the place and secure. No s/s of respiratory distress noted. Airway care done, pt responded to physical stimuli. In-line HHN tx with 2.5mg Albuterol+0.5mg Atrovent given, pt tolerated well. HME, Sx Dorsey and HHN adaptor changed. Resus. bag and back up trach at bedside. Vent and alarms checked and reset.
[2018-06-22] MEDS: ATORVASTATIN 10 MG TABLET GT SCH (20:45)
[2018-06-22] MEDS: MULTIVITAMINS,THERAPEUTIC TABLET GT SCH (20:46)
[2018-06-22] MEDS: ARGINAID GT SCH (20:46)
[2018-06-22] MEDS: RIVAROXABAN 15 MG TABLET PO SCH (21:47)
[2018-06-22 22:11] VITALS: BP 112/50
[2018-06-23] MEDS: IPRATROPIUM BROMIDE 0.5 MG/2.5 ML NEBU NEB SCH ×4 (00:58→18:58)
[2018-06-23] MEDS: ALBUTEROL SULFATE 2.5 MG/3 ML NEBU NEB SCH ×4 (00:58→18:58)
[2018-06-23] MEDS: CHOLECALCIFEROL 1,000 UNIT TABLET GT SCH (05:24)
[2018-06-23] MEDS: METOCLOPRAMIDE HCL 10 MG/10 ML UDC GT SCH ×3 (05:24→17:16)
[2018-06-23] MEDS: FERROUS SULFATE 330 MG/7.5 ML UDC- FOR SA ONLY GT SCH ×3 (05:24→22:07)
[2018-06-23] MEDS: POLYVINYL ALCOHOL OPHT DROPS 15 ML BOTTLE OP SCH ×3 (05:24→22:07)
[2018-06-23] MEDS: FAMOTIDINE 40 MG TABLET GT SCH (05:36)
[2018-06-23] MEDS: BLOOD SUGAR DIAGNOSTIC 1 EACH STRIP VI SCH (05:36)
[2018-06-23] MEDS: GLUCERNA 1.2 1000ML LIQUID GT PRN ×2 (05:37→22:13)
[2018-06-23 08:03] VITALS: BP 116/65
[2018-06-23] MEDS: ASPIRIN 81 MG TAB.CHEW GT SCH (08:31)
[2018-06-23] MEDS: ASCORBIC ACID 500 MG TABLET GT SCH ×2 (08:32→20:39)
[2018-06-23] MEDS: VALPROIC ACID 250 MG/5 ML LIQUID UDC GT SCH ×2 (08:32→20:37)
[2018-06-23] MEDS: Z GUARD REMEDY PASTE 57 GM TUBE TOP SCH ×3 (08:32→20:42)
[2018-06-23] MEDS: COD LIVER OIL/ZINC OXIDE OINT 113 GM TUBE TOP SCH ×2 (08:32→20:41)
[2018-06-23] MEDS: PROTEIN SUPPLEMENT (PROSTAT) 30 ML LIQUID GT SCH ×2 (08:32→17:16)
[2018-06-23] MEDS: METOPROLOL TARTRATE 50 MG TABLET GT SCH ×2 (08:32→20:38)
[2018-06-23] MEDS: SODIUM HYPOCHLORITE 0.125% 473 ML BOTTLE TP SCH ×2 (08:32→20:42)
[2018-06-23] MEDS: LEVETIRACETAM 500 MG/5 ML LIQUID UDC GT SCH ×2 (08:32→20:37)
[2018-06-23] MEDS: LACOSAMIDE 200 MG TABLET XX SCH ×2 (08:32→20:42)
[2018-06-23] MEDS: ACETAMINOPHEN 325 MG TABLET-SA PATIENTS-PAIN ONLY PO SCH ×2 (08:32→20:40)
[2018-06-23] MEDS: LOSARTAN POTASSIUM 50 MG TABLET GT SCH (08:32)
[2018-06-23] MEDS: HYDROGEN PEROXIDE 3% 118 ML BOTTLE TP SCH ×2 (08:32→20:42)
--- NOTE | 2018-06-23 13:09 | NUR ---
SHEYLA MARTIN (Pau) WAS CALLED AND MESSAGE LEFT IN VOICEMAIL RE:C&S FINAL RESULT AND AWAITING TO CALL BACK.
--- NOTE | 2018-06-23 17:04 | NUR ---
NEW ORDER CARRIED OUT FROM SHEYLA Woodson (I.D)
--- NOTE | 2018-06-23 18:15 | NUR ---
CEFTRIAXONE NOT COVERED BY ONSURANCE PER ESEQUIEL IGLESIAS. NURSES SPOKE TO [place] AND WOUND C&S RESULTS FAXED TO [facility] AND [place] [facility] PHARMACIST WILL CALL BACK ,SHE WILL TRY TO FIND OUT IF THERE IS ANY OTHER OPTION.
--- NOTE | 2018-06-23 19:00 | NUR ---
Received pt on HT-50 vent with the following settings of AC-12, Vt-500, PEEP+5, FIO2-2LPM bleed-in, trached with Shiley#6 DCT trach, which is in the place and secure. No respiratory distress noted. Airway care done, pt responded to physical stimuli. In-line HHN tx with 2.5mg Albuterol+0.5mg Atrovent given, pt tolerated well. HME changed. Resus. bag and back up trach at bedside. Vent and alarms checked and reset.
[2018-06-23] MEDS ORDERED: CEFTRIAXONE 1 G in IV DEXTROSE 5% 50 ML IV ONE (20:00)
[2018-06-23] MEDS: ATORVASTATIN 10 MG TABLET GT SCH (20:37)
[2018-06-23] MEDS: ARGINAID GT SCH (20:39)
[2018-06-23] MEDS: MULTIVITAMINS,THERAPEUTIC TABLET GT SCH (20:39)
[2018-06-23] MEDS: RIVAROXABAN 15 MG TABLET PO SCH (20:41)
[2018-06-23 23:20] VITALS: BP 123/61
[2018-06-24] MEDS: IPRATROPIUM BROMIDE 0.5 MG/2.5 ML NEBU NEB SCH ×4 (00:58→19:12)
[2018-06-24] MEDS: ALBUTEROL SULFATE 2.5 MG/3 ML NEBU NEB SCH ×4 (00:58→19:12)
[2018-06-24] MEDS: CHOLECALCIFEROL 1,000 UNIT TABLET GT SCH (06:02)
[2018-06-24] MEDS: METOCLOPRAMIDE HCL 10 MG/10 ML UDC GT SCH ×4 (06:02→17:00)
[2018-06-24] MEDS: FERROUS SULFATE 330 MG/7.5 ML UDC- FOR SA ONLY GT SCH ×3 (06:02→22:18)
[2018-06-24] MEDS: FAMOTIDINE 40 MG TABLET GT SCH (06:03)
[2018-06-24] MEDS: POLYVINYL ALCOHOL OPHT DROPS 15 ML BOTTLE OP SCH ×3 (06:03→22:18)
[2018-06-24] MEDS: BLOOD SUGAR DIAGNOSTIC 1 EACH STRIP VI SCH (06:03)
[2018-06-24 08:03] VITALS: BP 113/63
[2018-06-24] MEDS: ASPIRIN 81 MG TAB.CHEW GT SCH (08:51)
[2018-06-24] MEDS: VALPROIC ACID 250 MG/5 ML LIQUID UDC GT SCH ×2 (08:51→20:50)
[2018-06-24] MEDS: LEVETIRACETAM 500 MG/5 ML LIQUID UDC GT SCH ×2 (08:51→20:50)
[2018-06-24] MEDS: LOSARTAN POTASSIUM 50 MG TABLET GT SCH (08:51)
[2018-06-24] MEDS: METOPROLOL TARTRATE 50 MG TABLET GT SCH ×2 (08:52→20:51)
[2018-06-24] MEDS: PROTEIN SUPPLEMENT (PROSTAT) 30 ML LIQUID GT SCH ×2 (08:52→17:00)
[2018-06-24] MEDS: ASCORBIC ACID 500 MG TABLET GT SCH ×2 (08:52→20:51)
[2018-06-24] MEDS: COD LIVER OIL/ZINC OXIDE OINT 113 GM TUBE TOP SCH ×2 (08:52→20:52)
[2018-06-24] MEDS: ACETAMINOPHEN 325 MG TABLET-SA PATIENTS-PAIN ONLY PO SCH ×2 (08:52→21:16)
[2018-06-24] MEDS: Z GUARD REMEDY PASTE 57 GM TUBE TOP SCH ×3 (08:52→20:52)
[2018-06-24] MEDS: SODIUM HYPOCHLORITE 0.125% 473 ML BOTTLE TP SCH ×2 (08:53→20:52)
[2018-06-24] MEDS: HYDROGEN PEROXIDE 3% 118 ML BOTTLE TP SCH ×2 (08:53→20:52)
[2018-06-24] MEDS: LACOSAMIDE 200 MG TABLET XX SCH ×2 (08:53→20:52)
--- NOTE | 2018-06-24 13:00 | NUR ---
SEEN BY AGUS ROCHA.
--- NOTE | 2018-06-24 17:10 | NUR ---
NEW ORDER CARRIED OUT FROM SHEYLA Reid) AND PER TEA IT WILL BE PROVIDED BY [facility].
--- NOTE | 2018-06-24 17:35 | NUR ---
RECEIVED STABLE ON CURRENT VENTILATOR SETTINGS OF AC 14 VT 500, PEEP 5 AND FIO2 BLED IN AT 3LPM IN LINE. IN LINE TX GIVEN WITHOUT COMPLICATION. SUCTIONED FOR MODERATE AMOUNT OF PALE WHITE SECRETIONS. VENT IS WORKING WELL WITH ALARMS ACTIVE. CHANGED HUMIDIFIER FILTER.
[2018-06-24] MEDS: AMPICILLIN IV SCH (18:45)
[2018-06-24] MEDS: NS IV SCH (18:45)
--- NOTE | 2018-06-24 19:12 | NUR ---
Received pt on HT-50 vent with current settings of AC 12, VT 500, Peep +5, FiO2 2LPM O2 Bleed-in, no changes to vent settings made at this time. Pt's trach is secured and patent. Pt tolerating vent settings well, no signs and symptoms of respiratory distress noted. Suctioned pt with moderate amount of thick pale-yellowish secretions. Changed HME. Vent alarms functioning and audible. Vent plugged in red outlet. Will continue to monitor pt throughout shift.
[2018-06-24] MEDS ORDERED: CEFTRIAXONE 1 G in IV DEXTROSE 5% 50 ML IV SCH (20:00)
[2018-06-24 20:12] VITALS: BP 124/60
[2018-06-24] MEDS: ATORVASTATIN 10 MG TABLET GT SCH (20:50)
[2018-06-24] MEDS: ARGINAID GT SCH (20:51)
[2018-06-24] MEDS: MULTIVITAMINS,THERAPEUTIC TABLET GT SCH (20:51)
[2018-06-24] MEDS: RIVAROXABAN 15 MG TABLET PO SCH (21:17)
[2018-06-25] MEDS: AMPICILLIN IV SCH ×4 (00:03→17:05)
[2018-06-25] MEDS: NS IV SCH ×4 (00:03→17:05)
[2018-06-25] MEDS: IPRATROPIUM BROMIDE 0.5 MG/2.5 ML NEBU NEB SCH ×4 (00:46→19:29)
[2018-06-25] MEDS: ALBUTEROL SULFATE 2.5 MG/3 ML NEBU NEB SCH ×4 (00:46→19:29)
[2018-06-25] MEDS: METOCLOPRAMIDE HCL 10 MG/10 ML UDC GT SCH ×5 (00:58→23:28)
--- NOTE | 2018-06-25 06:10 | NUR ---
CONTINUE ON AMPICILLIN 1GM IV Q 6HRS FOR VRE IN WOUND, NO ADVERSE REACTION NOTED.
[2018-06-25] MEDS: CHOLECALCIFEROL 1,000 UNIT TABLET GT SCH (06:14)
[2018-06-25] MEDS: POLYVINYL ALCOHOL OPHT DROPS 15 ML BOTTLE OP SCH ×3 (06:14→21:13)
[2018-06-25] MEDS: FERROUS SULFATE 330 MG/7.5 ML UDC- FOR SA ONLY GT SCH ×3 (06:14→21:13)
[2018-06-25] MEDS: FAMOTIDINE 40 MG TABLET GT SCH (06:14)
[2018-06-25] MEDS: BLOOD SUGAR DIAGNOSTIC 1 EACH STRIP VI SCH (06:14)
[2018-06-25 08:03] VITALS: BP 107/60
[2018-06-25] MEDS: ASCORBIC ACID 500 MG TABLET GT SCH ×2 (09:00→20:50)
[2018-06-25] MEDS: SODIUM HYPOCHLORITE 0.125% 473 ML BOTTLE TP SCH ×2 (09:00→20:51)
[2018-06-25] MEDS: ACETAMINOPHEN 325 MG TABLET-SA PATIENTS-PAIN ONLY PO SCH ×2 (09:00→21:02)
[2018-06-25] MEDS: COD LIVER OIL/ZINC OXIDE OINT 113 GM TUBE TOP SCH ×2 (09:00→20:51)
[2018-06-25] MEDS: LACOSAMIDE 200 MG TABLET XX SCH ×2 (09:00→20:51)
[2018-06-25] MEDS: HYDROGEN PEROXIDE 3% 118 ML BOTTLE TP SCH ×2 (09:00→20:51)
[2018-06-25] MEDS: Z GUARD REMEDY PASTE 57 GM TUBE TOP SCH ×3 (09:00→20:51)
[2018-06-25] MEDS: ASPIRIN 81 MG TAB.CHEW GT SCH (09:00)
[2018-06-25] MEDS: LOSARTAN POTASSIUM 50 MG TABLET GT SCH (09:00)
[2018-06-25] MEDS: VALPROIC ACID 250 MG/5 ML LIQUID UDC GT SCH ×2 (09:00→20:49)
[2018-06-25] MEDS: LEVETIRACETAM 500 MG/5 ML LIQUID UDC GT SCH ×2 (09:00→20:49)
[2018-06-25] MEDS: PROTEIN SUPPLEMENT (PROSTAT) 30 ML LIQUID GT SCH ×2 (09:00→17:15)
[2018-06-25] MEDS: METOPROLOL TARTRATE 50 MG TABLET GT SCH ×2 (09:00→20:50)
--- NOTE | 2018-06-25 12:44 | NUR ---
Pharmacy Update from today's 06/25/18 IDT Meeting Note: Pt admitted 05/20/18 from acute rehab for continuation of care after sudden cardiac arrest and subsequent anoxic brain injury. Pt is vent dependent, bedbound and developed seizures after cardiac arrest. Was treated for VAP, UTI, sepsis before transfer to [facility]: Temp 98.5 BP 107/60 HR 112 LABS: (from 06/18/18) Wbc 5.4 H/H 8.7/26.3 Plt 165 Na 140 K 4.2 Cl 102 CO2 31 BUN/Scr 20/0.4 BS 123 Ca 8.7 MEDICATION USE REVIEWED: > Pt not on any anti-psych medications > Pt on Keppra 1500mg q12h since admit on 05/20/18, last calculated CrCl >130 ml/min, dose ok per renal fxn. > Pt on Vimpat 200mg q12h since admit 05/20/18, no seizures reported > Pt on Valproic acid 1000mg q12h since admit 05/20/18, no seizures at this time, Rx rec for baseline level, ordered 05/29/18 resulted 54 (50-100) within therapeutic range. No reported seizures > Pt on Cozaar 50mg daily since 05/20/18, Lopressor 50mg q12hr (increased from 25mg q12h on 05/21), and hydralazine 10mg PRN SBP >160. Hold parameters in effect. > Pt on famotidine 40mg daily for GI prophylaxis, ok per renal function. Remains on reglan 5mg q6h for continued gastroparesis maintenance treatment > Pt on xarelto 15mg daily since 06/03/18 for bilateral upper extremity DVT, last plt 165, ok. PRN MED USAGE: (since admit) Tylenol for pain/temp x5 Hydralazine used x0 NEW ORDERS NOTED: > Tylenol 650mg qshift before wound care added 06/16 > vitamin C increased from 500mg daily to q12h, zinc d/c'd 06/14 > Rocephin/zyvox ordered, rx rec for change to amicillin IV 1gm q6hr instead per wound cx on 06/21 Patient was reviewed and discussed at IDT with family in attendance. All updates and reports given. No reported concerns or issues with pharmacy or medications per team or family. No acute changes, will continue to follow.
--- NOTE | 2018-06-25 12:59 | NUR ---
NO A/R TO IV AMPICILLIN AND RT. FOOT IV SITE INTACT AND PATENT ,NO REDNESS,NO SWELLING.
[2018-06-25] MEDS: GLUCERNA 1.2 1000ML LIQUID GT PRN (14:23)
--- NOTE | 2018-06-25 15:49 | NUR ---
INTERDISCIPLINARY PLAN OF CARE CONFERENCE was held today. Patient's Zoya and daughter Vignesh were present at the meeting. Dr. Beltrán and the Interdisciplinary Team reviewed the current plan of care in detail. RN provided updates on patient's medical condition, recent treatments, wound care, and changes in medications. RN reported that isolation for MRSA has been discontinued, but patient is now on isolation precautions for VRE in urine. See RN IDT conference notes. See also all other disciplines IDT notes and physician's progress notes for additional details. Family's questions were addressed by Dr. Beltrán and the IDT team, and they expressed understanding and being content with the current plan of care.
--- NOTE | 2018-06-25 17:34 | NUR ---
RESIDENT REMAIN ON CURRENT VENTILATOR SETTINGS OF AC 14 VT 500, PEEP 5 AND FIO2 BLED IN AT 2LPM IN LINE.TOLERATED IN LINE TX GIVEN WITHOUT COMPLICATION. SUCTIONED FOR MODERATE AMOUNT OF PALE WHITE SECRETIONS. TRACH SHILEY # 6 IS SECURE AND CLEAN. VENT IS WORKING WELL WITH ALARMS ACTIVE. CHANGED HUMIDIFIER FILTER.
[2018-06-25 20:00] VITALS: BP 101/55
[2018-06-25] MEDS: ATORVASTATIN 10 MG TABLET GT SCH (20:49)
[2018-06-25] MEDS: MULTIVITAMINS,THERAPEUTIC TABLET GT SCH (20:50)
[2018-06-25] MEDS: ARGINAID GT SCH (20:50)
[2018-06-25] MEDS: RIVAROXABAN 15 MG TABLET PO SCH (21:14)
[2018-06-26] MEDS: AMPICILLIN IV SCH ×5 (00:33→23:57)
[2018-06-26] MEDS: NS IV SCH ×5 (00:33→23:57)
[2018-06-26] MEDS: ALBUTEROL SULFATE 2.5 MG/3 ML NEBU NEB SCH ×4 (00:50→19:24)
[2018-06-26] MEDS: IPRATROPIUM BROMIDE 0.5 MG/2.5 ML NEBU NEB SCH ×4 (00:50→19:24)
[2018-06-26] MEDS: POLYVINYL ALCOHOL OPHT DROPS 15 ML BOTTLE OP SCH ×3 (06:10→21:17)
[2018-06-26] MEDS: METOCLOPRAMIDE HCL 10 MG/10 ML UDC GT SCH ×3 (06:10→17:38)
[2018-06-26] MEDS: FAMOTIDINE 40 MG TABLET GT SCH (06:10)
[2018-06-26] MEDS: FERROUS SULFATE 330 MG/7.5 ML UDC- FOR SA ONLY GT SCH ×3 (06:10→21:17)
[2018-06-26] MEDS: CHOLECALCIFEROL 1,000 UNIT TABLET GT SCH (06:10)
[2018-06-26] MEDS: BLOOD SUGAR DIAGNOSTIC 1 EACH STRIP VI SCH (06:10)
--- NOTE | 2018-06-26 07:18 | NUR ---
ON IV ATB Ampicillin 1 gm Q 6 hours for VRE of wound and urine. Contact precaution observed. IV heplock on right foot patent without redness/tenderness/ infiltration. Afebrile. Continue to monitor.
[2018-06-26 08:03] VITALS: BP 105/56
[2018-06-26] MEDS: LOSARTAN POTASSIUM 50 MG TABLET GT SCH (08:40)
[2018-06-26] MEDS: ASPIRIN 81 MG TAB.CHEW GT SCH (08:40)
[2018-06-26] MEDS: LEVETIRACETAM 500 MG/5 ML LIQUID UDC GT SCH ×2 (08:41→20:09)
[2018-06-26] MEDS: VALPROIC ACID 250 MG/5 ML LIQUID UDC GT SCH ×2 (08:41→20:09)
[2018-06-26] MEDS: METOPROLOL TARTRATE 50 MG TABLET GT SCH ×2 (08:43→20:56)
[2018-06-26] MEDS: ACETAMINOPHEN 325 MG TABLET-SA PATIENTS-PAIN ONLY PO SCH ×2 (08:44→20:10)
[2018-06-26] MEDS: PROTEIN SUPPLEMENT (PROSTAT) 30 ML LIQUID GT SCH ×2 (08:44→17:37)
[2018-06-26] MEDS: ASCORBIC ACID 500 MG TABLET GT SCH ×2 (08:44→20:10)
[2018-06-26] MEDS: HYDROGEN PEROXIDE 3% 118 ML BOTTLE TP SCH ×2 (08:45→20:11)
[2018-06-26] MEDS: Z GUARD REMEDY PASTE 57 GM TUBE TOP SCH ×3 (08:45→20:11)
[2018-06-26] MEDS: LACOSAMIDE 200 MG TABLET XX SCH ×2 (08:45→20:11)
[2018-06-26] MEDS: SODIUM HYPOCHLORITE 0.125% 473 ML BOTTLE TP SCH ×2 (08:45→20:11)
[2018-06-26] MEDS: COD LIVER OIL/ZINC OXIDE OINT 113 GM TUBE TOP SCH ×2 (08:45→20:10)
--- NOTE | 2018-06-26 18:41 | NUR ---
Continue on ivatb ampicillin 1 gm ivpb,no adverse reaction noted,given for vre in urine and wound.iv site on the r foot intact.
[2018-06-26 20:00] VITALS: BP 101/58
[2018-06-26] MEDS: ATORVASTATIN 10 MG TABLET GT SCH (20:09)
[2018-06-26] MEDS: MULTIVITAMINS,THERAPEUTIC TABLET GT SCH (20:10)
[2018-06-26] MEDS: ARGINAID GT SCH (20:10)
[2018-06-26] MEDS: GLUCERNA 1.2 1000ML LIQUID GT PRN (20:57)
[2018-06-26] MEDS: RIVAROXABAN 15 MG TABLET PO SCH (20:57)
[2018-06-27] MEDS: METOCLOPRAMIDE HCL 10 MG/10 ML UDC GT SCH ×4 (00:38→17:02)
[2018-06-27] MEDS: IPRATROPIUM BROMIDE 0.5 MG/2.5 ML NEBU NEB SCH ×4 (00:39→19:27)
[2018-06-27] MEDS: ALBUTEROL SULFATE 2.5 MG/3 ML NEBU NEB SCH ×4 (00:39→19:27)
--- NOTE | 2018-06-27 00:50 | NUR ---
Patient is on Ampicillin IV for VRE in wound and urine, no adverse reactions noted, afebrile, No bleeding from sacral wound, with ongoing treatment to sacral wound as ordered, kept wound clean and dry. Fletcher catheter draining well to yellow urine, good daniel care rendered, kept clean and comfortable.
[2018-06-27] MEDS: FERROUS SULFATE 330 MG/7.5 ML UDC- FOR SA ONLY GT SCH ×3 (05:12→21:15)
[2018-06-27] MEDS: POLYVINYL ALCOHOL OPHT DROPS 15 ML BOTTLE OP SCH ×3 (05:12→21:16)
[2018-06-27] MEDS: CHOLECALCIFEROL 1,000 UNIT TABLET GT SCH (05:12)
[2018-06-27] MEDS: BLOOD SUGAR DIAGNOSTIC 1 EACH STRIP VI SCH (05:39)
[2018-06-27] MEDS: NS IV SCH ×3 (05:39→17:09)
[2018-06-27] MEDS: AMPICILLIN IV SCH ×3 (05:39→17:09)
[2018-06-27] MEDS: FAMOTIDINE 40 MG TABLET GT SCH (05:39)
[2018-06-27 07:30] VITALS: BP 132/78
[2018-06-27] MEDS: LOSARTAN POTASSIUM 50 MG TABLET GT SCH (08:34)
[2018-06-27] MEDS: VALPROIC ACID 250 MG/5 ML LIQUID UDC GT SCH ×2 (08:34→21:09)
[2018-06-27] MEDS: ASPIRIN 81 MG TAB.CHEW GT SCH (08:34)
[2018-06-27] MEDS: LEVETIRACETAM 500 MG/5 ML LIQUID UDC GT SCH ×2 (08:35→21:09)
[2018-06-27] MEDS: PROTEIN SUPPLEMENT (PROSTAT) 30 ML LIQUID GT SCH ×2 (08:36→16:37)
[2018-06-27] MEDS: METOPROLOL TARTRATE 50 MG TABLET GT SCH ×2 (08:36→21:10)
[2018-06-27] MEDS: Z GUARD REMEDY PASTE 57 GM TUBE TOP SCH ×3 (08:38→21:12)
[2018-06-27] MEDS: ACETAMINOPHEN 325 MG TABLET-SA PATIENTS-PAIN ONLY PO SCH ×2 (08:38→21:12)
[2018-06-27] MEDS: COD LIVER OIL/ZINC OXIDE OINT 113 GM TUBE TOP SCH ×2 (08:38→21:12)
[2018-06-27] MEDS: ASCORBIC ACID 500 MG TABLET GT SCH ×2 (08:38→21:11)
[2018-06-27] MEDS: HYDROGEN PEROXIDE 3% 118 ML BOTTLE TP SCH ×2 (08:39→21:13)
[2018-06-27] MEDS: SODIUM HYPOCHLORITE 0.125% 473 ML BOTTLE TP SCH ×2 (08:39→21:12)
[2018-06-27] MEDS: LACOSAMIDE 200 MG TABLET XX SCH ×2 (08:41→21:15)
[2018-06-27] MEDS: GLUCERNA 1.2 1000ML LIQUID GT PRN (16:37)
--- NOTE | 2018-06-27 17:13 | NUR ---
PT ON HT-50 VENT, SETTINGS ARE AC 12, Vt-500, +5, 2 LPM BLEED IN. SHILEY 6 TRACH IS PATENT AND SECURED, SITE IS CLEAN AND DRY. NO SOB, DOING WELL ON CURRENT VENT SETTINGS. TXS TOLERATED WELL. SUCTIONED SMALL AMOUNTS OF WHITE THICK SECRETIONS. BVM AND BACK UP TRACH AT BEDSIDE. WILL CONTINUE TO MONITOR.
--- NOTE | 2018-06-27 19:27 | NUR ---
PT RECEIVED TRACH TO VENT ON HT-50 VENT, SETTINGS ARE AC 12, VT 500, PEEP +5, 2 LPM BLEED IN. SHILEY #6 TRACH IS PATENT AND SECURED. VENT PARAMETERS AND ALARMS CHECKED, ALARMS ARE AUDIBLE. IN-LINE TX TOLERATED WELL, NO ADVERSE REACTION NOTED. PT IS TOLERATING VENT SETTINGS WELL, NO RESP. DISTRESS NOTED AT THIS TIME. VENT CIRCUIT AND HME CHANGED WITHOUT INCIDENT. AMBU-BAG AND BACK-UP TRACH AT BEDSIDE. SUCTION PRN. WILL CONTINUE TO MONITOR.
[2018-06-27] MEDS: ATORVASTATIN 10 MG TABLET GT SCH (21:09)
[2018-06-27] MEDS: ARGINAID GT SCH (21:11)
[2018-06-27] MEDS: MULTIVITAMINS,THERAPEUTIC TABLET GT SCH (21:11)
[2018-06-27] MEDS: RIVAROXABAN 15 MG TABLET PO SCH (21:14)
[2018-06-27 21:57] VITALS: BP 105/59
[2018-06-28] MEDS: METOCLOPRAMIDE HCL 10 MG/10 ML UDC GT SCH ×4 (00:54→17:02)
[2018-06-28] MEDS: ALBUTEROL SULFATE 2.5 MG/3 ML NEBU NEB SCH ×4 (01:27→19:46)
[2018-06-28] MEDS: IPRATROPIUM BROMIDE 0.5 MG/2.5 ML NEBU NEB SCH ×4 (01:27→19:46)
--- NOTE | 2018-06-28 04:17 | NUR ---
Afebrile, patient is on Ampicillin IV for VRE in wound and urine, no adverse reactions noted, no bleeding from sacral wound, with ongoing treatment to sacral wound as ordered, kept wound clean and dry. Fletcher catheter draining well to yellow urine, good daniel care rendered, kept clean and comfortable. Addendum: 06/28/18 at 0422 by ROSINA HOFFMAN RN S/p sacral wound debridement, treatment is intact, premedicated prior to wound care, turned and repositioned, kept clean and comfortable.
[2018-06-28] MEDS: FERROUS SULFATE 330 MG/7.5 ML UDC- FOR SA ONLY GT SCH ×3 (05:03→22:01)
[2018-06-28] MEDS: CHOLECALCIFEROL 1,000 UNIT TABLET GT SCH (05:03)
[2018-06-28] MEDS: POLYVINYL ALCOHOL OPHT DROPS 15 ML BOTTLE OP SCH ×3 (05:04→22:01)
[2018-06-28] MEDS: NS IV SCH ×5 (06:00→17:40)
[2018-06-28] MEDS: AMPICILLIN IV SCH ×5 (06:00→17:40)
[2018-06-28] MEDS: FAMOTIDINE 40 MG TABLET GT SCH (06:12)
[2018-06-28] MEDS: BLOOD SUGAR DIAGNOSTIC 1 EACH STRIP VI SCH (06:13)
[2018-06-28 08:04] VITALS: BP 129/84
[2018-06-28] MEDS: ASPIRIN 81 MG TAB.CHEW GT SCH (09:42)
[2018-06-28] MEDS: VALPROIC ACID 250 MG/5 ML LIQUID UDC GT SCH ×2 (09:42→20:53)
[2018-06-28] MEDS: ASCORBIC ACID 500 MG TABLET GT SCH ×2 (09:42→20:55)
[2018-06-28] MEDS: Z GUARD REMEDY PASTE 57 GM TUBE TOP SCH ×3 (09:44→20:55)
[2018-06-28] MEDS: COD LIVER OIL/ZINC OXIDE OINT 113 GM TUBE TOP SCH ×2 (09:44→20:55)
[2018-06-28] MEDS: PROTEIN SUPPLEMENT (PROSTAT) 30 ML LIQUID GT SCH ×2 (09:44→17:02)
[2018-06-28] MEDS: LEVETIRACETAM 500 MG/5 ML LIQUID UDC GT SCH ×2 (09:44→20:53)
[2018-06-28] MEDS: SODIUM HYPOCHLORITE 0.125% 473 ML BOTTLE TP SCH ×2 (09:49→20:57)
[2018-06-28] MEDS: HYDROGEN PEROXIDE 3% 118 ML BOTTLE TP SCH ×2 (09:49→20:57)
[2018-06-28] MEDS: LACOSAMIDE 200 MG TABLET XX SCH ×2 (09:49→20:57)
[2018-06-28] MEDS: METOPROLOL TARTRATE 50 MG TABLET GT SCH ×2 (09:54→20:53)
[2018-06-28] MEDS: ACETAMINOPHEN 325 MG TABLET-SA PATIENTS-PAIN ONLY PO SCH ×2 (09:54→20:55)
[2018-06-28] MEDS: LOSARTAN POTASSIUM 50 MG TABLET GT SCH (09:54)
--- NOTE | 2018-06-28 13:23 | NUR ---
PT ON HT-50 VENT, SETTINGS ARE AC 12, Vt-500, +5, 2 LPM BLEED IN. SHILEY 6 TRACH IS PATENT AND SECURED, SITE IS CLEAN AND DRY. NO S/S OF RESPIRATORY DISTRESS, DOING WELL ON CURRENT VENT SETTINGS. TX TOLERATED WELL. SUCTIONED SMALL AMOUNTS OF WHITE THICK SECRETIONS. BVM AND BACK UP TRACH AT BEDSIDE. WILL CONTINUE TO MONITOR.
[2018-06-28] MEDS: GLUCERNA 1.2 1000ML LIQUID GT PRN (17:30)
[2018-06-28 20:19] VITALS: BP 128/75
[2018-06-28] MEDS: ATORVASTATIN 10 MG TABLET GT SCH (20:53)
[2018-06-28] MEDS: MULTIVITAMINS,THERAPEUTIC TABLET GT SCH (20:55)
[2018-06-28] MEDS: ARGINAID GT SCH (20:55)
[2018-06-28] MEDS: RIVAROXABAN 15 MG TABLET PO SCH (20:56)
[2018-06-29] MEDS: AMPICILLIN IV SCH ×4 (00:08→18:48)
[2018-06-29] MEDS: NS IV SCH ×4 (00:08→18:48)
[2018-06-29] MEDS: ALBUTEROL SULFATE 2.5 MG/3 ML NEBU NEB SCH ×4 (01:30→18:58)
[2018-06-29] MEDS: IPRATROPIUM BROMIDE 0.5 MG/2.5 ML NEBU NEB SCH ×4 (01:30→18:58)
--- NOTE | 2018-06-29 01:30 | NUR ---
continue on ampicillin 1gm iv for vre in wound and urine, no adverse reaction noted.
[2018-06-29] MEDS: METOCLOPRAMIDE HCL 10 MG/10 ML UDC GT SCH ×4 (05:32→17:19)
[2018-06-29] MEDS: FERROUS SULFATE 330 MG/7.5 ML UDC- FOR SA ONLY GT SCH ×3 (05:32→22:05)
[2018-06-29] MEDS: CHOLECALCIFEROL 1,000 UNIT TABLET GT SCH (05:32)
[2018-06-29] MEDS: POLYVINYL ALCOHOL OPHT DROPS 15 ML BOTTLE OP SCH ×3 (05:33→22:05)
[2018-06-29] MEDS: FAMOTIDINE 40 MG TABLET GT SCH (05:33)
[2018-06-29] MEDS: BLOOD SUGAR DIAGNOSTIC 1 EACH STRIP VI SCH (05:33)
--- NOTE | 2018-06-29 07:00 | NUR ---
Pt received in semi tellez position, obtunded, unable to communicate, and on continuous mechanical ventilation via Shiley 6 DCT trach. Pt is on [place] HT-50 ventilator with ordered settings of A/C-12, VT-500, PEEP+5, FIO2-28% 2LPM Bleed-in oxygen. Tolerating vent settings well. SpO2-99% Trach is patent and secured. Minimal occluding volume technique used to assess cuff inflation. In-line nebulizer treatments given as ordered, Q6 with Albuterol/Atrovent. Treatments tolerated well, no adverse reactions noted. Sxn'd and lavaged as needed. Suctioned moderate amounts of thick white secretions. HME changed. PPE used. No signs or symptoms of respiratory distress. Ventilator alarm parameters checked, on and audible. Vent plugged into red emergency outlet. Bag/valve/mask and backup trach at bedside. Will continue to monitor.
[2018-06-29 08:05] VITALS: BP 124/66
[2018-06-29] MEDS: ASPIRIN 81 MG TAB.CHEW GT SCH (09:04)
[2018-06-29] MEDS: LEVETIRACETAM 500 MG/5 ML LIQUID UDC GT SCH ×2 (09:05→20:55)
[2018-06-29] MEDS: METOPROLOL TARTRATE 50 MG TABLET GT SCH ×2 (09:05→21:00)
[2018-06-29] MEDS: VALPROIC ACID 250 MG/5 ML LIQUID UDC GT SCH ×2 (09:05→20:55)
[2018-06-29] MEDS: LOSARTAN POTASSIUM 50 MG TABLET GT SCH (09:05)
[2018-06-29] MEDS: ASCORBIC ACID 500 MG TABLET GT SCH ×2 (09:07→20:56)
[2018-06-29] MEDS: PROTEIN SUPPLEMENT (PROSTAT) 30 ML LIQUID GT SCH ×2 (09:07→17:19)
[2018-06-29] MEDS: ACETAMINOPHEN 325 MG TABLET-SA PATIENTS-PAIN ONLY PO SCH ×2 (09:08→20:56)
[2018-06-29] MEDS: LACOSAMIDE 200 MG TABLET XX SCH ×2 (09:08→20:57)
[2018-06-29] MEDS: Z GUARD REMEDY PASTE 57 GM TUBE TOP SCH ×3 (09:37→20:56)
[2018-06-29] MEDS: COD LIVER OIL/ZINC OXIDE OINT 113 GM TUBE TOP SCH ×2 (09:37→20:56)
[2018-06-29] MEDS: HYDROGEN PEROXIDE 3% 118 ML BOTTLE TP SCH ×2 (09:38→20:57)
[2018-06-29] MEDS: SODIUM HYPOCHLORITE 0.125% 473 ML BOTTLE TP SCH ×2 (09:38→20:56)
[2018-06-29] MEDS: GLUCERNA 1.2 1000ML LIQUID GT PRN (17:20)
--- NOTE | 2018-06-29 17:59 | NUR ---
Continue on ampicillin 1 gm ivatb given for vre in urine and wound,no adverse reaction noted,HL intact,no s/s of infiltration noted.
--- NOTE | 2018-06-29 19:00 | NUR ---
Received pt on HT-50 vent with the following settings of AC-12, Vt-500, PEEP+5, FIO2-2LPM bleed-in, trached with Shiley#6 DCT trach, which is in the place and secure. No respiratory distress noted. Airway care done, pt responded to physical stimuli. In-line HHN tx with 2.5mg Albuterol+0.5mg Atrovent given, pt tolerated well. HME, Sx Dorsey and HHN adaptor changed. Resus. bag and back up trach at bedside. Vent and alarms checked and reset.
[2018-06-29] MEDS: ARGINAID GT SCH (20:56)
[2018-06-29] MEDS: MULTIVITAMINS,THERAPEUTIC TABLET GT SCH (20:56)
[2018-06-29] MEDS: ATORVASTATIN 10 MG TABLET GT SCH (20:56)
[2018-06-29] MEDS: RIVAROXABAN 15 MG TABLET PO SCH (21:00)
[2018-06-29 21:53] VITALS: BP 99/49
[2018-06-30] MEDS: AMPICILLIN IV SCH ×4 (00:06→17:51)
[2018-06-30] MEDS: NS IV SCH ×4 (00:06→17:51)
[2018-06-30] MEDS: METOCLOPRAMIDE HCL 10 MG/10 ML UDC GT SCH ×4 (00:51→17:26)
[2018-06-30] MEDS: ALBUTEROL SULFATE 2.5 MG/3 ML NEBU NEB SCH ×4 (00:58→19:16)
[2018-06-30] MEDS: IPRATROPIUM BROMIDE 0.5 MG/2.5 ML NEBU NEB SCH ×4 (00:58→19:16)
--- NOTE | 2018-06-30 01:09 | NUR ---
continue on ampicillin iv for vre in urine and wound, no adverse reaction noted.
[2018-06-30] MEDS: CHOLECALCIFEROL 1,000 UNIT TABLET GT SCH (05:46)
[2018-06-30] MEDS: POLYVINYL ALCOHOL OPHT DROPS 15 ML BOTTLE OP SCH ×3 (05:46→22:17)
[2018-06-30] MEDS: FAMOTIDINE 40 MG TABLET GT SCH (05:46)
[2018-06-30] MEDS: BLOOD SUGAR DIAGNOSTIC 1 EACH STRIP VI SCH (05:46)
[2018-06-30] MEDS: FERROUS SULFATE 330 MG/7.5 ML UDC- FOR SA ONLY GT SCH ×3 (05:46→22:17)
[2018-06-30 08:04] VITALS: BP 121/58
[2018-06-30] MEDS: ACETAMINOPHEN 325 MG TABLET-SA PATIENTS-PAIN ONLY PO SCH ×2 (08:25→21:00)
[2018-06-30] MEDS: LOSARTAN POTASSIUM 50 MG TABLET GT SCH (09:09)
[2018-06-30] MEDS: ASPIRIN 81 MG TAB.CHEW GT SCH (09:09)
[2018-06-30] MEDS: LEVETIRACETAM 500 MG/5 ML LIQUID UDC GT SCH ×2 (09:09→21:00)
[2018-06-30] MEDS: VALPROIC ACID 250 MG/5 ML LIQUID UDC GT SCH ×2 (09:09→21:00)
[2018-06-30] MEDS: METOPROLOL TARTRATE 50 MG TABLET GT SCH ×2 (09:10→21:00)
[2018-06-30] MEDS: Z GUARD REMEDY PASTE 57 GM TUBE TOP SCH ×3 (09:10→21:00)
[2018-06-30] MEDS: ASCORBIC ACID 500 MG TABLET GT SCH ×2 (09:10→21:00)
[2018-06-30] MEDS: PROTEIN SUPPLEMENT (PROSTAT) 30 ML LIQUID GT SCH ×2 (09:10→17:26)
[2018-06-30] MEDS: HYDROGEN PEROXIDE 3% 118 ML BOTTLE TP SCH ×2 (09:10→21:00)
[2018-06-30] MEDS: COD LIVER OIL/ZINC OXIDE OINT 113 GM TUBE TOP SCH ×2 (09:10→21:00)
[2018-06-30] MEDS: LACOSAMIDE 200 MG TABLET XX SCH ×2 (09:11→21:00)
[2018-06-30] MEDS: SODIUM HYPOCHLORITE 0.125% 473 ML BOTTLE TP SCH ×2 (09:11→21:00)
[2018-06-30] MEDS ORDERED: Z GUARD REMEDY PASTE 57 GM TUBE TOP PRN (09:30)
--- NOTE | 2018-06-30 18:00 | NUR ---
Seen and examined by Dr Pace,no new orders noted.
--- NOTE | 2018-06-30 19:02 | NUR ---
continue on ivatb for VRE in urine and wound with no adverse reaction noted,iv site intact,no s/s of infiltration noted,pt continue on isolation precaution.observe closely.
--- NOTE | 2018-06-30 19:18 | NUR ---
Pt received on HT-50 ventilator with the following settings of AC-12, Vt-500, PEEP+5, FIO2-2LPM bleed-in, trached with Shiley#6 DCT trach, which is in the place and secure. No distress noted. Airway care done, pt responded to physical stimuli. In-line HHN tx with 2.5mg Albuterol+0.5mg Atrovent given, no adverse reaction noted. HME changed. Resus. bag and back up trach at bedside. Vent and alarms checked and reset.
[2018-06-30] MEDS: ATORVASTATIN 10 MG TABLET GT SCH (21:00)
[2018-06-30] MEDS: RIVAROXABAN 15 MG TABLET PO SCH (21:00)
[2018-06-30] MEDS: ARGINAID GT SCH (21:00)
[2018-06-30] MEDS: MULTIVITAMINS,THERAPEUTIC TABLET GT SCH (21:00)
[2018-06-30 21:06] VITALS: BP 140/55
[2018-06-30] MEDS: GLUCERNA 1.2 1000ML LIQUID GT PRN (23:46)
[2018-07-01] MEDS: METOCLOPRAMIDE HCL 10 MG/10 ML UDC GT SCH ×4 (00:05→17:24)
[2018-07-01] MEDS: NS IV SCH ×5 (00:13→23:35)
[2018-07-01] MEDS: AMPICILLIN IV SCH ×5 (00:13→23:35)
--- NOTE | 2018-07-01 00:56 | NUR ---
Remains on Ampicillin IV for VRE of urine and sacral wound, IV on left foot is intact and patent, no signs of infiltration noted. Afebrile, fluids given as ordered, cordova catheter draining well to yellow urine, good daniel care rendered, kept clean and comfortable.
[2018-07-01] MEDS: IPRATROPIUM BROMIDE 0.5 MG/2.5 ML NEBU NEB SCH ×4 (00:58→19:43)
[2018-07-01] MEDS: ALBUTEROL SULFATE 2.5 MG/3 ML NEBU NEB SCH ×4 (00:58→19:43)
[2018-07-01] MEDS: FERROUS SULFATE 330 MG/7.5 ML UDC- FOR SA ONLY GT SCH ×3 (06:17→22:57)
[2018-07-01] MEDS: BLOOD SUGAR DIAGNOSTIC 1 EACH STRIP VI SCH (06:18)
[2018-07-01] MEDS: POLYVINYL ALCOHOL OPHT DROPS 15 ML BOTTLE OP SCH ×3 (06:18→22:57)
[2018-07-01] MEDS: FAMOTIDINE 40 MG TABLET GT SCH (06:18)
[2018-07-01] MEDS: CHOLECALCIFEROL 1,000 UNIT TABLET GT SCH (06:18)
[2018-07-01 08:10] VITALS: BP 127/59
[2018-07-01] MEDS: ASPIRIN 81 MG TAB.CHEW GT SCH (09:13)
[2018-07-01] MEDS: LOSARTAN POTASSIUM 50 MG TABLET GT SCH (09:14)
[2018-07-01] MEDS: VALPROIC ACID 250 MG/5 ML LIQUID UDC GT SCH ×2 (09:14→21:00)
[2018-07-01] MEDS: LEVETIRACETAM 500 MG/5 ML LIQUID UDC GT SCH ×2 (09:14→21:00)
[2018-07-01] MEDS: COD LIVER OIL/ZINC OXIDE OINT 113 GM TUBE TOP SCH ×2 (09:15→21:00)
[2018-07-01] MEDS: ASCORBIC ACID 500 MG TABLET GT SCH ×2 (09:15→21:00)
[2018-07-01] MEDS: METOPROLOL TARTRATE 50 MG TABLET GT SCH ×2 (09:15→21:00)
[2018-07-01] MEDS: PROTEIN SUPPLEMENT (PROSTAT) 30 ML LIQUID GT SCH ×2 (09:15→17:24)
[2018-07-01] MEDS: ACETAMINOPHEN 325 MG TABLET-SA PATIENTS-PAIN ONLY PO SCH ×2 (09:15→21:00)
[2018-07-01] MEDS: LACOSAMIDE 200 MG TABLET XX SCH ×2 (09:16→21:00)
[2018-07-01] MEDS: SODIUM HYPOCHLORITE 0.125% 473 ML BOTTLE TP SCH ×2 (09:16→21:00)
[2018-07-01] MEDS: HYDROGEN PEROXIDE 3% 118 ML BOTTLE TP SCH ×2 (09:16→21:00)
[2018-07-01] MEDS: Z GUARD REMEDY PASTE 57 GM TUBE TOP SCH ×3 (09:16→21:00)
--- NOTE | 2018-07-01 17:23 | NUR ---
RESIDENT REMAIN ON CURRENT VENTILATOR SETTINGS OF AC 14 VT 500, PEEP 5 AND FIO2 BLED IN AT 2LPM IN LINE.TOLERATED IN LINE TX WELL. SUCTIONED FOR MODERATE AMOUNT OF PALE WHITE SECRETIONS. TRACH SHILEY # 6 IS SECURE AND CLEAN. VENT IS WORKING WELL WITH ALARMS ACTIVE. CHANGED HUMIDIFIER FILTER.
[2018-07-01] MEDS: GLUCERNA 1.2 1000ML LIQUID GT PRN (17:24)
[2018-07-01] MEDS: RIVAROXABAN 15 MG TABLET PO SCH (21:00)
[2018-07-01] MEDS: ARGINAID GT SCH (21:00)
[2018-07-01] MEDS: ATORVASTATIN 10 MG TABLET GT SCH (21:00)
[2018-07-01] MEDS: MULTIVITAMINS,THERAPEUTIC TABLET GT SCH (21:00)
[2018-07-01 21:04] VITALS: BP 104/66
[2018-07-02] MEDS: METOCLOPRAMIDE HCL 10 MG/10 ML UDC GT SCH ×4 (00:28→18:34)
[2018-07-02] MEDS: IPRATROPIUM BROMIDE 0.5 MG/2.5 ML NEBU NEB SCH ×4 (01:00→19:36)
[2018-07-02] MEDS: ALBUTEROL SULFATE 2.5 MG/3 ML NEBU NEB SCH ×4 (01:00→19:36)
[2018-07-02] MEDS: NS IV SCH ×3 (05:06→17:00)
[2018-07-02] MEDS: AMPICILLIN IV SCH ×3 (05:06→17:00)
[2018-07-02] MEDS: FERROUS SULFATE 330 MG/7.5 ML UDC- FOR SA ONLY GT SCH ×3 (05:22→21:13)
[2018-07-02] MEDS: POLYVINYL ALCOHOL OPHT DROPS 15 ML BOTTLE OP SCH ×3 (05:23→21:14)
[2018-07-02] MEDS: CHOLECALCIFEROL 1,000 UNIT TABLET GT SCH (05:23)
[2018-07-02] MEDS: FAMOTIDINE 40 MG TABLET GT SCH (05:45)
[2018-07-02] MEDS: BLOOD SUGAR DIAGNOSTIC 1 EACH STRIP VI SCH (05:45)
[2018-07-02] MEDS: LOSARTAN POTASSIUM 50 MG TABLET GT SCH (09:00)
[2018-07-02] MEDS: METOPROLOL TARTRATE 50 MG TABLET GT SCH ×2 (09:00→21:10)
[2018-07-02] MEDS: ASPIRIN 81 MG TAB.CHEW GT SCH (09:23)
[2018-07-02] MEDS: LEVETIRACETAM 500 MG/5 ML LIQUID UDC GT SCH ×2 (09:24→21:09)
[2018-07-02] MEDS: VALPROIC ACID 250 MG/5 ML LIQUID UDC GT SCH ×2 (09:24→21:08)
[2018-07-02] MEDS: ASCORBIC ACID 500 MG TABLET GT SCH ×2 (09:26→21:11)
[2018-07-02] MEDS: PROTEIN SUPPLEMENT (PROSTAT) 30 ML LIQUID GT SCH ×2 (09:26→18:00)
[2018-07-02] MEDS: ACETAMINOPHEN 325 MG TABLET-SA PATIENTS-PAIN ONLY PO SCH ×2 (09:27→21:17)
[2018-07-02] MEDS: HYDROGEN PEROXIDE 3% 118 ML BOTTLE TP SCH ×2 (09:28→21:13)
[2018-07-02] MEDS: LACOSAMIDE 200 MG TABLET XX SCH ×2 (09:28→21:16)
[2018-07-02] MEDS: COD LIVER OIL/ZINC OXIDE OINT 113 GM TUBE TOP SCH ×2 (09:28→21:13)
[2018-07-02] MEDS: Z GUARD REMEDY PASTE 57 GM TUBE TOP SCH ×3 (09:28→21:13)
[2018-07-02] MEDS: SODIUM HYPOCHLORITE 0.125% 473 ML BOTTLE TP SCH ×2 (09:28→21:13)
[2018-07-02] MEDS: GLUCERNA 1.2 1000ML LIQUID GT PRN (12:34)
--- NOTE | 2018-07-02 16:45 | NUR ---
INTERDISCIPLINARY PLAN OF CARE CONFERENCE was held today. Patient's family was invited to the meeting, but they were unable to attend. Dr. Beltrán and the Interdisciplinary Team reviewed the current plan of care in detail. RN provided updates on patient's medical condition and current treatments. Isolation status continues. See RN IDT conference notes. See all disciplines IDT notes and physician's progress notes for additional details.
[2018-07-02 20:52] VITALS: BP 115/64
[2018-07-02] MEDS: ATORVASTATIN 10 MG TABLET GT SCH (21:10)
[2018-07-02] MEDS: ARGINAID GT SCH (21:11)
[2018-07-02] MEDS: MULTIVITAMINS,THERAPEUTIC TABLET GT SCH (21:11)
[2018-07-02] MEDS: RIVAROXABAN 15 MG TABLET PO SCH (21:12)
[2018-07-03] MEDS: NS IV SCH ×4 (00:07→18:30)
[2018-07-03] MEDS: AMPICILLIN IV SCH ×4 (00:07→18:30)
[2018-07-03] MEDS: METOCLOPRAMIDE HCL 10 MG/10 ML UDC GT SCH ×4 (00:57→17:44)
[2018-07-03] MEDS: ALBUTEROL SULFATE 2.5 MG/3 ML NEBU NEB SCH ×4 (00:58→20:03)
[2018-07-03] MEDS: IPRATROPIUM BROMIDE 0.5 MG/2.5 ML NEBU NEB SCH ×4 (00:58→20:03)
--- NOTE | 2018-07-03 01:26 | NUR ---
continue on ampicillin iv for vre in urine and wound, no adverse reaction noted.
[2018-07-03] MEDS: FAMOTIDINE 40 MG TABLET GT SCH (05:46)
[2018-07-03] MEDS: CHOLECALCIFEROL 1,000 UNIT TABLET GT SCH (05:46)
[2018-07-03] MEDS: POLYVINYL ALCOHOL OPHT DROPS 15 ML BOTTLE OP SCH ×3 (05:46→22:05)
[2018-07-03] MEDS: BLOOD SUGAR DIAGNOSTIC 1 EACH STRIP VI SCH (05:46)
[2018-07-03] MEDS: FERROUS SULFATE 330 MG/7.5 ML UDC- FOR SA ONLY GT SCH ×3 (05:46→22:05)
[2018-07-03 08:18] VITALS: BP 137/71
[2018-07-03] MEDS: ASPIRIN 81 MG TAB.CHEW GT SCH (09:46)
[2018-07-03] MEDS: LOSARTAN POTASSIUM 50 MG TABLET GT SCH (09:47)
[2018-07-03] MEDS: LEVETIRACETAM 500 MG/5 ML LIQUID UDC GT SCH ×2 (09:48→21:00)
[2018-07-03] MEDS: VALPROIC ACID 250 MG/5 ML LIQUID UDC GT SCH ×2 (09:48→21:00)
[2018-07-03] MEDS: ASCORBIC ACID 500 MG TABLET GT SCH ×2 (09:49→21:00)
[2018-07-03] MEDS: METOPROLOL TARTRATE 50 MG TABLET GT SCH ×2 (09:49→21:00)
[2018-07-03] MEDS: PROTEIN SUPPLEMENT (PROSTAT) 30 ML LIQUID GT SCH ×2 (09:49→17:44)
[2018-07-03] MEDS: HYDROGEN PEROXIDE 3% 118 ML BOTTLE TP SCH ×2 (09:50→21:00)
[2018-07-03] MEDS: SODIUM HYPOCHLORITE 0.125% 473 ML BOTTLE TP SCH ×2 (09:50→21:00)
[2018-07-03] MEDS: Z GUARD REMEDY PASTE 57 GM TUBE TOP SCH ×3 (09:50→21:00)
[2018-07-03] MEDS: ACETAMINOPHEN 325 MG TABLET-SA PATIENTS-PAIN ONLY PO SCH ×2 (09:50→21:00)
[2018-07-03] MEDS: COD LIVER OIL/ZINC OXIDE OINT 113 GM TUBE TOP SCH ×2 (09:50→21:00)
[2018-07-03] MEDS: LACOSAMIDE 200 MG TABLET XX SCH ×2 (09:51→21:00)
--- NOTE | 2018-07-03 19:08 | NUR ---
Continue on ampicillin ivatb,no adverse reaction noted,iv site intact,new orders noted to jean head,carried out.
[2018-07-03 20:25] VITALS: BP 110/51
[2018-07-03] MEDS: ATORVASTATIN 10 MG TABLET GT SCH (21:00)
[2018-07-03] MEDS: MULTIVITAMINS,THERAPEUTIC TABLET GT SCH (21:00)
[2018-07-03] MEDS: ARGINAID GT SCH (21:00)
[2018-07-03] MEDS: RIVAROXABAN 15 MG TABLET PO SCH (21:00)
[2018-07-04] MEDS: NS IV SCH ×4 (00:06→17:59)
[2018-07-04] MEDS: AMPICILLIN IV SCH ×4 (00:06→17:59)
[2018-07-04] MEDS: METOCLOPRAMIDE HCL 10 MG/10 ML UDC GT SCH ×5 (00:40→23:42)
--- NOTE | 2018-07-04 01:14 | NUR ---
continue on ampicillin iv for vre in urine and wound, no adverse reaction noted.
[2018-07-04] MEDS: IPRATROPIUM BROMIDE 0.5 MG/2.5 ML NEBU NEB SCH ×4 (01:49→19:09)
[2018-07-04] MEDS: ALBUTEROL SULFATE 2.5 MG/3 ML NEBU NEB SCH ×4 (01:50→19:09)
[2018-07-04] MEDS: POLYVINYL ALCOHOL OPHT DROPS 15 ML BOTTLE OP SCH ×3 (05:08→22:04)
[2018-07-04] MEDS: FERROUS SULFATE 330 MG/7.5 ML UDC- FOR SA ONLY GT SCH ×3 (05:08→22:04)
[2018-07-04] MEDS: CHOLECALCIFEROL 1,000 UNIT TABLET GT SCH (05:08)
[2018-07-04] MEDS: FAMOTIDINE 40 MG TABLET GT SCH (06:07)
[2018-07-04 08:00] VITALS: BP 119/59
[2018-07-04] MEDS: LOSARTAN POTASSIUM 50 MG TABLET GT SCH (08:17)
[2018-07-04] MEDS: ASPIRIN 81 MG TAB.CHEW GT SCH (08:17)
[2018-07-04] MEDS: VALPROIC ACID 250 MG/5 ML LIQUID UDC GT SCH ×2 (08:17→21:52)
[2018-07-04] MEDS: LEVETIRACETAM 500 MG/5 ML LIQUID UDC GT SCH ×2 (08:18→21:52)
[2018-07-04] MEDS: METOPROLOL TARTRATE 50 MG TABLET GT SCH ×2 (08:20→21:53)
[2018-07-04] MEDS: PROTEIN SUPPLEMENT (PROSTAT) 30 ML LIQUID GT SCH ×2 (08:20→17:17)
[2018-07-04] MEDS: ASCORBIC ACID 500 MG TABLET GT SCH ×2 (08:20→21:53)
[2018-07-04] MEDS: ACETAMINOPHEN 325 MG TABLET-SA PATIENTS-PAIN ONLY PO SCH ×2 (08:21→21:53)
[2018-07-04] MEDS: COD LIVER OIL/ZINC OXIDE OINT 113 GM TUBE TOP SCH ×2 (08:21→21:55)
[2018-07-04] MEDS: Z GUARD REMEDY PASTE 57 GM TUBE TOP SCH ×3 (08:22→21:55)
[2018-07-04] MEDS: SODIUM HYPOCHLORITE 0.125% 473 ML BOTTLE TP SCH ×2 (08:25→21:55)
[2018-07-04] MEDS: LACOSAMIDE 200 MG TABLET XX SCH ×2 (08:25→21:55)
[2018-07-04] MEDS: HYDROGEN PEROXIDE 3% 118 ML BOTTLE TP SCH ×2 (08:25→21:55)
--- NOTE | 2018-07-04 12:00 | NUR ---
SEEN BY AGUS ROCHA.
--- NOTE | 2018-07-04 15:30 | NUR ---
SEEN BY WAYNE ROCHA.
--- NOTE | 2018-07-04 19:10 | NUR ---
PT RECEIVED ON CONTINUOUS VENT AC 14 VT 500 PEEP 5 FIO2 2LPM BLEED. IN LINE TX GIVEN WITH UD ALBUTEROL + UD ATROVENT ORDERED. SUCTION SMALL AMOUNT THICK PALE YELLOW SECRETIONS. TRACH IN PLACED AND SECURED WITH TRACH TIE. BACK UP TRACH AND AMBU BAG AT BEDSIDE. VENT CHECKED, ALARMS WORKING WELL AND AUDIBLE. NO SIGNS OF RESPIRATORY DISTRESS NOTED AT THIS TIME. WILL CONTINUE TO MONITOR.
[2018-07-04 20:13] VITALS: BP 119/53
[2018-07-04] MEDS: ATORVASTATIN 10 MG TABLET GT SCH (21:52)
[2018-07-04] MEDS: MULTIVITAMINS,THERAPEUTIC TABLET GT SCH (21:53)
[2018-07-04] MEDS: ARGINAID GT SCH (21:53)
[2018-07-04] MEDS: RIVAROXABAN 15 MG TABLET PO SCH (21:55)
[2018-07-05] MEDS: AMPICILLIN IV SCH ×4 (00:16→17:26)
[2018-07-05] MEDS: NS IV SCH ×4 (00:16→17:26)
[2018-07-05] MEDS: GLUCERNA 1.2 1000ML LIQUID GT PRN (00:30)
[2018-07-05] MEDS: IPRATROPIUM BROMIDE 0.5 MG/2.5 ML NEBU NEB SCH ×4 (01:01→19:29)
[2018-07-05] MEDS: ALBUTEROL SULFATE 2.5 MG/3 ML NEBU NEB SCH ×4 (01:01→19:29)
--- NOTE | 2018-07-05 02:36 | NUR ---
Remains on Ampicillin IV for VRE of urine and sacral wound, Afebrile, IV on left foot is intact and patent, no signs of infiltration noted. Fluids given as ordered, cordova catheter draining well to yellow urine, good daniel care rendered, Treatment done to sacral wound as ordered, kept clean and comfortable.
[2018-07-05] MEDS: CHOLECALCIFEROL 1,000 UNIT TABLET GT SCH (05:32)
[2018-07-05] MEDS: METOCLOPRAMIDE HCL 10 MG/10 ML UDC GT SCH ×3 (05:32→17:06)
[2018-07-05] MEDS: FERROUS SULFATE 330 MG/7.5 ML UDC- FOR SA ONLY GT SCH ×3 (05:32→22:10)
[2018-07-05] MEDS: POLYVINYL ALCOHOL OPHT DROPS 15 ML BOTTLE OP SCH ×3 (05:32→22:11)
[2018-07-05] MEDS: FAMOTIDINE 40 MG TABLET GT SCH (05:32)
[2018-07-05 07:30] VITALS: BP 121/66
--- NOTE | 2018-07-05 07:36 | NUR ---
PT RECEIVED TRACH TO VENT ON HT-50 VENT, SETTINGS ARE AC 12, VT 500, PEEP +5, 2 LPM BLEED IN. SHILEY #6 TRACH IS PATENT AND SECURED. VENT PARAMETERS AND ALARMS CHECKED, ALARMS ARE AUDIBLE. IN-LINE TX TOLERATED WELL, NO ADVERSE REACTION NOTED. PT IS TOLERATING VENT SETTINGS WELL, NO RESP. DISTRESS NOTED AT THIS TIME. HME CHANGED WITHOUT INCIDENT. AMBU-BAG AND BACK-UP TRACH AT BEDSIDE. SUCTION PRN. WILL CONTINUE TO MONITOR.
[2018-07-05] MEDS: ASPIRIN 81 MG TAB.CHEW GT SCH (08:20)
[2018-07-05] MEDS: LOSARTAN POTASSIUM 50 MG TABLET GT SCH (08:20)
[2018-07-05] MEDS: LEVETIRACETAM 500 MG/5 ML LIQUID UDC GT SCH ×2 (08:21→21:58)
[2018-07-05] MEDS: VALPROIC ACID 250 MG/5 ML LIQUID UDC GT SCH ×2 (08:21→21:58)
[2018-07-05] MEDS: PROTEIN SUPPLEMENT (PROSTAT) 30 ML LIQUID GT SCH ×2 (08:22→17:06)
[2018-07-05] MEDS: METOPROLOL TARTRATE 50 MG TABLET GT SCH ×2 (08:22→21:58)
[2018-07-05] MEDS: ACETAMINOPHEN 325 MG TABLET-SA PATIENTS-PAIN ONLY PO SCH ×2 (08:23→21:58)
[2018-07-05] MEDS: COD LIVER OIL/ZINC OXIDE OINT 113 GM TUBE TOP SCH ×2 (08:23→21:58)
[2018-07-05] MEDS: Z GUARD REMEDY PASTE 57 GM TUBE TOP SCH ×3 (08:23→21:58)
[2018-07-05] MEDS: LACOSAMIDE 200 MG TABLET XX SCH ×2 (08:23→21:58)
[2018-07-05] MEDS: ASCORBIC ACID 500 MG TABLET GT SCH ×2 (08:23→21:58)
[2018-07-05] MEDS: HYDROGEN PEROXIDE 3% 118 ML BOTTLE TP SCH ×2 (08:23→21:58)
[2018-07-05] MEDS: SODIUM HYPOCHLORITE 0.125% 473 ML BOTTLE TP SCH ×2 (08:23→21:58)
[2018-07-05 20:17] VITALS: BP 104/57
[2018-07-05] MEDS: RIVAROXABAN 15 MG TABLET PO SCH (21:10)
[2018-07-05] MEDS: MULTIVITAMINS,THERAPEUTIC TABLET GT SCH (21:58)
[2018-07-05] MEDS: ATORVASTATIN 10 MG TABLET GT SCH (21:58)
[2018-07-05] MEDS: ARGINAID GT SCH (21:58)
--- NOTE | 2018-07-05 23:14 | NUR ---
Afebrile, still on Ampicillin IV for VRE of urine and sacral wound, IV on left foot is intact and patent, no signs of infiltration noted. Fluids given as ordered, cordova catheter draining well to yellow urine, good daniel care rendered, Treatment done to sacral wound as ordered, kept clean and comfortable.
[2018-07-06] MEDS: NS IV SCH ×5 (00:53→23:58)
[2018-07-06] MEDS: AMPICILLIN IV SCH ×5 (00:53→23:58)
[2018-07-06] MEDS: METOCLOPRAMIDE HCL 10 MG/10 ML UDC GT SCH ×4 (00:59→17:58)
[2018-07-06] MEDS: ALBUTEROL SULFATE 2.5 MG/3 ML NEBU NEB SCH ×4 (01:11→19:31)
[2018-07-06] MEDS: IPRATROPIUM BROMIDE 0.5 MG/2.5 ML NEBU NEB SCH ×4 (01:11→19:31)
[2018-07-06] MEDS: FAMOTIDINE 40 MG TABLET GT SCH (06:35)
[2018-07-06] MEDS: POLYVINYL ALCOHOL OPHT DROPS 15 ML BOTTLE OP SCH ×3 (06:35→22:04)
[2018-07-06] MEDS: CHOLECALCIFEROL 1,000 UNIT TABLET GT SCH (06:35)
[2018-07-06] MEDS: FERROUS SULFATE 330 MG/7.5 ML UDC- FOR SA ONLY GT SCH ×3 (06:35→22:04)
--- NOTE | 2018-07-06 06:52 | NUR ---
Pt receive in semi tellez position, unable to communicate, responds to physical stimuli.. Continuous mechanical ventilation with vent: HT-50 settings: A/C 12, Vt 500, PEEP +5, FIO2 28% with 2 Lpm bleed in, tolerating settings well, no changes made to settings at this time.. Pt trach: Leonard 6 DCT, in place and secure with tie.. No respiratory distress noted at this time, will continue to monitor.. Vent alarms functioning normally at this time / on / audible.. BVM / back up trach at bedside, vent plugged in to red emergency outlet..
[2018-07-06 08:00] VITALS: BP 110/67
[2018-07-06] MEDS: ASPIRIN 81 MG TAB.CHEW GT SCH (08:54)
[2018-07-06] MEDS: LOSARTAN POTASSIUM 50 MG TABLET GT SCH (08:55)
[2018-07-06] MEDS: VALPROIC ACID 250 MG/5 ML LIQUID UDC GT SCH ×2 (08:56→21:00)
[2018-07-06] MEDS: LEVETIRACETAM 500 MG/5 ML LIQUID UDC GT SCH ×2 (08:56→21:00)
[2018-07-06] MEDS: ASCORBIC ACID 500 MG TABLET GT SCH ×2 (08:57→21:00)
[2018-07-06] MEDS: ACETAMINOPHEN 325 MG TABLET-SA PATIENTS-PAIN ONLY PO SCH ×2 (08:57→21:00)
[2018-07-06] MEDS: PROTEIN SUPPLEMENT (PROSTAT) 30 ML LIQUID GT SCH ×2 (08:57→17:58)
[2018-07-06] MEDS: METOPROLOL TARTRATE 50 MG TABLET GT SCH ×2 (08:57→21:00)
[2018-07-06] MEDS: HYDROGEN PEROXIDE 3% 118 ML BOTTLE TP SCH ×2 (08:58→21:00)
[2018-07-06] MEDS: LACOSAMIDE 200 MG TABLET XX SCH ×2 (08:58→21:00)
[2018-07-06] MEDS: SODIUM HYPOCHLORITE 0.125% 473 ML BOTTLE TP SCH ×2 (08:58→21:00)
[2018-07-06] MEDS: Z GUARD REMEDY PASTE 57 GM TUBE TOP SCH ×3 (08:58→21:00)
[2018-07-06] MEDS: GLUCERNA 1.2 1000ML LIQUID GT PRN (09:05)
--- NOTE | 2018-07-06 19:31 | NUR ---
Received pt on HT-50 vent with current settings of AC 12, VT 500, Peep +5, FiO2 2LPM O2 Bleed-in, no changes to vent settings made at this time. Pt's trach is secured and patent. Pt tolerating vent settings well, no signs and symptoms of respiratory distress noted. Suctioned pt with moderate amount of thick pale-yellowish secretions. Changed HME and suction luis. Vent alarms functioning and audible. Vent plugged in red outlet. Will continue to monitor pt throughout shift.
[2018-07-06 20:26] VITALS: BP 119/67
[2018-07-06] MEDS: MULTIVITAMINS,THERAPEUTIC TABLET GT SCH (21:00)
[2018-07-06] MEDS: ATORVASTATIN 10 MG TABLET GT SCH (21:00)
[2018-07-06] MEDS: RIVAROXABAN 15 MG TABLET PO SCH (21:00)
[2018-07-06] MEDS: ARGINAID GT SCH (21:00)
[2018-07-07] MEDS: METOCLOPRAMIDE HCL 10 MG/10 ML UDC GT SCH ×5 (00:49→17:57)
[2018-07-07] MEDS: ALBUTEROL SULFATE 2.5 MG/3 ML NEBU NEB SCH ×4 (01:05→19:26)
[2018-07-07] MEDS: IPRATROPIUM BROMIDE 0.5 MG/2.5 ML NEBU NEB SCH ×4 (01:05→19:26)
[2018-07-07] MEDS: POLYVINYL ALCOHOL OPHT DROPS 15 ML BOTTLE OP SCH ×3 (05:18→21:39)
[2018-07-07] MEDS: FERROUS SULFATE 330 MG/7.5 ML UDC- FOR SA ONLY GT SCH ×3 (05:18→21:39)
[2018-07-07] MEDS: CHOLECALCIFEROL 1,000 UNIT TABLET GT SCH (05:18)
[2018-07-07] MEDS: AMPICILLIN IV SCH ×3 (06:04→18:03)
[2018-07-07] MEDS: NS IV SCH ×3 (06:04→18:03)
[2018-07-07] MEDS: FAMOTIDINE 40 MG TABLET GT SCH (06:32)
--- NOTE | 2018-07-07 07:09 | NUR ---
Patient on ampicillin for VRE of wound and urine. IV heplock on left foot intact and patent. No adverse effects noted. Afebrile. Observed contact isolation for VRE wound and urine. Wound care provided and wound with mal-odorous odor. Pain med provided prior to treatment. Will continue to monitor.
[2018-07-07 08:55] VITALS: BP 122/64
[2018-07-07] MEDS: LEVETIRACETAM 500 MG/5 ML LIQUID UDC GT SCH ×2 (09:00→21:37)
[2018-07-07] MEDS: HYDROGEN PEROXIDE 3% 118 ML BOTTLE TP SCH ×2 (09:00→21:38)
[2018-07-07] MEDS: METOPROLOL TARTRATE 50 MG TABLET GT SCH ×2 (09:00→21:37)
[2018-07-07] MEDS: ASCORBIC ACID 500 MG TABLET GT SCH ×2 (09:00→21:37)
[2018-07-07] MEDS: ASPIRIN 81 MG TAB.CHEW GT SCH (09:00)
[2018-07-07] MEDS: SODIUM HYPOCHLORITE 0.125% 473 ML BOTTLE TP SCH ×2 (09:00→21:38)
[2018-07-07] MEDS: LACOSAMIDE 200 MG TABLET XX SCH ×2 (09:00→21:39)
[2018-07-07] MEDS: Z GUARD REMEDY PASTE 57 GM TUBE TOP SCH ×3 (09:00→21:38)
[2018-07-07] MEDS: PROTEIN SUPPLEMENT (PROSTAT) 30 ML LIQUID GT SCH ×2 (09:00→17:57)
[2018-07-07] MEDS: VALPROIC ACID 250 MG/5 ML LIQUID UDC GT SCH ×2 (09:00→21:37)
[2018-07-07] MEDS: ACETAMINOPHEN 325 MG TABLET-SA PATIENTS-PAIN ONLY PO SCH ×3 (09:00→21:38)
[2018-07-07] MEDS: LOSARTAN POTASSIUM 50 MG TABLET GT SCH (09:00)
--- NOTE | 2018-07-07 19:20 | NUR ---
Pt received in semi tellez position, obtunded, unable to communicate, and on continuous mechanical ventilation via Shiley 6 DCT trach. Pt is on [place] HT-50 ventilator with ordered settings of A/C-12, VT-500, PEEP+5, FIO2-28% 2LPM Bleed-in oxygen. Tolerating vent settings well. Trach is patent and secured. Minimal occluding volume technique used to assess cuff inflation. In-line nebulizer treatments given as ordered, Q6 with Albuterol/Atrovent. Treatments tolerated well, no adverse reactions noted. Sxn'd and lavaged as needed. Suctioned moderate amounts of thick white secretions. HME changed. PPE used. No signs or symptoms of respiratory distress. Ventilator alarm parameters checked, on and audible. Vent plugged into red emergency outlet. Bag/valve/mask and backup trach at bedside. Will continue to monitor.
[2018-07-07 20:10] VITALS: BP 113/77
[2018-07-07] MEDS: RIVAROXABAN 15 MG TABLET PO SCH (21:00)
[2018-07-07] MEDS: ATORVASTATIN 10 MG TABLET GT SCH (21:37)
[2018-07-07] MEDS: MULTIVITAMINS,THERAPEUTIC TABLET GT SCH (21:37)
[2018-07-07] MEDS: ARGINAID GT SCH (21:37)
[2018-07-08] MEDS: METOCLOPRAMIDE HCL 10 MG/10 ML UDC GT SCH ×4 (00:31→18:09)
[2018-07-08] MEDS: ALBUTEROL SULFATE 2.5 MG/3 ML NEBU NEB SCH ×4 (00:36→19:24)
[2018-07-08] MEDS: IPRATROPIUM BROMIDE 0.5 MG/2.5 ML NEBU NEB SCH ×4 (00:36→19:24)
[2018-07-08] MEDS: CHOLECALCIFEROL 1,000 UNIT TABLET GT SCH (05:38)
[2018-07-08] MEDS: FERROUS SULFATE 330 MG/7.5 ML UDC- FOR SA ONLY GT SCH ×3 (05:38→22:01)
[2018-07-08] MEDS: POLYVINYL ALCOHOL OPHT DROPS 15 ML BOTTLE OP SCH ×3 (05:44→22:01)
[2018-07-08] MEDS: FAMOTIDINE 40 MG TABLET GT SCH (05:44)
[2018-07-08] MEDS: AMPICILLIN IV SCH ×4 (06:14→12:50)
[2018-07-08] MEDS: NS IV SCH ×4 (06:14→12:50)
[2018-07-08 08:06] VITALS: BP 112/60
[2018-07-08] MEDS: ASPIRIN 81 MG TAB.CHEW GT SCH (09:39)
[2018-07-08] MEDS: LOSARTAN POTASSIUM 50 MG TABLET GT SCH (09:39)
[2018-07-08] MEDS: METOPROLOL TARTRATE 50 MG TABLET GT SCH ×2 (09:40→22:00)
[2018-07-08] MEDS: VALPROIC ACID 250 MG/5 ML LIQUID UDC GT SCH ×2 (09:40→21:59)
[2018-07-08] MEDS: ASCORBIC ACID 500 MG TABLET GT SCH ×2 (09:41→21:00)
[2018-07-08] MEDS: PROTEIN SUPPLEMENT (PROSTAT) 30 ML LIQUID GT SCH ×2 (09:41→17:00)
[2018-07-08] MEDS: LEVETIRACETAM 500 MG/5 ML LIQUID UDC GT SCH ×2 (09:41→21:59)
[2018-07-08] MEDS: SODIUM HYPOCHLORITE 0.125% 473 ML BOTTLE TP SCH ×2 (09:42→21:00)
[2018-07-08] MEDS: Z GUARD REMEDY PASTE 57 GM TUBE TOP SCH ×3 (09:42→21:00)
[2018-07-08] MEDS: ACETAMINOPHEN 325 MG TABLET-SA PATIENTS-PAIN ONLY PO SCH ×2 (09:42→21:00)
[2018-07-08] MEDS: HYDROGEN PEROXIDE 3% 118 ML BOTTLE TP SCH ×2 (09:42→21:00)
[2018-07-08] MEDS: LACOSAMIDE 200 MG TABLET XX SCH ×2 (09:45→21:00)
--- NOTE | 2018-07-08 12:15 | NUR ---
SEEN BY AGUS ROCHA.
--- NOTE | 2018-07-08 14:58 | NUR ---
Patient seen today by Dr. Tierney for his initial dental exam. See dental notes for details.
--- NOTE | 2018-07-08 16:21 | NUR ---
RESIDENT REMAIN ON CURRENT VENTILATOR SETTINGS OF AC 14 VT 500, PEEP 5 AND FIO2 BLED IN AT 2LPM IN LINE.TOLERATED IN LINE TX WELL. SUCTIONED FOR LARGE AMOUNT OF BLOODY SECRETIONS FROM THE [place] , RNS ELLIS AND SEAN WERE INFORMED. TRACH SHILEY # 6 IS SECURE AND CLEAN. VENT IS WORKING WELL WITH ALARMS ACTIVE. CHANGED HUMIDIFIER FILTER.
--- NOTE | 2018-07-08 17:55 | NUR ---
SEEN BY DR. VARGAS AND NNO.
--- NOTE | 2018-07-08 19:24 | NUR ---
Trached resident received on HT-50 vent with ordered settings of AC 14,Vt 500, +5, 2LpmO2 bleed in. He is trached with a Shiley 6 DCT: ASPHALT WORKER used for cuff assessment/inflation. Suctioned small amounts of thick pale yellow secretions. No SOB or respiratory distress noted. Inline HHN treatment administered as ordered and tolerated well. Spare trach at bedside. Will continue to monitor.
[2018-07-08 20:53] VITALS: BP 134/57
[2018-07-08] MEDS: ARGINAID GT SCH (21:00)
[2018-07-08] MEDS: MULTIVITAMINS,THERAPEUTIC TABLET GT SCH (21:00)
[2018-07-08] MEDS: RIVAROXABAN 15 MG TABLET PO SCH (21:00)
[2018-07-08] MEDS: ATORVASTATIN 10 MG TABLET GT SCH (21:59)
[2018-07-08] MEDS: GLUCERNA 1.2 1000ML LIQUID GT PRN (23:21)
[2018-07-09] MEDS: IPRATROPIUM BROMIDE 0.5 MG/2.5 ML NEBU NEB SCH ×4 (01:19→19:47)
[2018-07-09] MEDS: ALBUTEROL SULFATE 2.5 MG/3 ML NEBU NEB SCH ×4 (01:19→19:47)
[2018-07-09] MEDS: CHOLECALCIFEROL 1,000 UNIT TABLET GT SCH (05:26)
[2018-07-09] MEDS: FERROUS SULFATE 330 MG/7.5 ML UDC- FOR SA ONLY GT SCH ×3 (05:26→21:02)
[2018-07-09] MEDS: METOCLOPRAMIDE HCL 10 MG/10 ML UDC GT SCH ×4 (05:26→17:31)
[2018-07-09] MEDS: POLYVINYL ALCOHOL OPHT DROPS 15 ML BOTTLE OP SCH ×3 (05:27→21:03)
[2018-07-09] MEDS: FAMOTIDINE 40 MG TABLET GT SCH (06:43)
--- NOTE | 2018-07-09 07:37 | NUR ---
RT PT ON HT-50 VENT, SETTINGS ARE AC 14, Vt-500, +5, 2 LPM BLEED IN. SHILEY 6 TRACH IS PATENT AND SECURED. NO SOB, DOING WELL ON CURRENT VENT SETTINGS. TXS TOLERATED WELL. SUCTIONED SMALL AMOUNTS OF WHITE THICK SECRETIONS. BVM AND BACK UP TRACH AT BEDSIDE. WILL CONTINUE TO MONITOR. PT ALARMS ON AND AUDIBLE.
[2018-07-09] MEDS: ASPIRIN 81 MG TAB.CHEW GT SCH (08:46)
[2018-07-09] MEDS: LOSARTAN POTASSIUM 50 MG TABLET GT SCH (08:47)
[2018-07-09] MEDS: PROTEIN SUPPLEMENT (PROSTAT) 30 ML LIQUID GT SCH ×2 (08:48→17:31)
[2018-07-09] MEDS: LEVETIRACETAM 500 MG/5 ML LIQUID UDC GT SCH ×2 (08:48→20:56)
[2018-07-09] MEDS: VALPROIC ACID 250 MG/5 ML LIQUID UDC GT SCH ×2 (08:48→20:56)
[2018-07-09] MEDS: METOPROLOL TARTRATE 50 MG TABLET GT SCH ×2 (08:48→20:56)
[2018-07-09] MEDS: ASCORBIC ACID 500 MG TABLET GT SCH ×2 (08:49→20:57)
[2018-07-09] MEDS: ACETAMINOPHEN 325 MG TABLET-SA PATIENTS-PAIN ONLY PO SCH ×2 (08:50→21:01)
[2018-07-09] MEDS: LACOSAMIDE 200 MG TABLET XX SCH ×2 (09:00→21:02)
[2018-07-09] MEDS: Z GUARD REMEDY PASTE 57 GM TUBE TOP SCH ×3 (09:19→21:02)
[2018-07-09] MEDS: SODIUM HYPOCHLORITE 0.125% 473 ML BOTTLE TP SCH ×2 (09:19→21:02)
[2018-07-09] MEDS: HYDROGEN PEROXIDE 3% 118 ML BOTTLE TP SCH ×2 (09:20→21:02)
--- NOTE | 2018-07-09 10:14 | NUR ---
Pharmacy Update from 07/02/18 IDT Meeting Note: Pt admitted 05/20/18 from acute rehab for continuation of care after sudden cardiac arrest and subsequent anoxic brain injury. Pt is vent dependent, bedbound and developed seizures after cardiac arrest. Was treated for VAP, UTI, sepsis before transfer to [facility]: Temp 98.4 BP 104/66 HR 104 LABS: (from 06/18/18, no new labs) Wbc 5.4 H/H 8.7/26.3 Plt 165 Na 140 K 4.2 Cl 102 CO2 31 BUN/Scr 20/0.4 BS 123 Ca 8.7 MEDICATION USE REVIEWED: > Pt not on any anti-psych medications > Pt on Keppra 1500mg q12h since admit on 05/20/18, last calculated CrCl >130 ml/min, dose ok per renal fxn. > Pt on Vimpat 200mg q12h since admit 05/20/18, no seizures reported > Pt on Valproic acid 1000mg q12h since admit 05/20/18, no seizures at this time, Rx rec for baseline level, ordered 05/29/18 resulted 54 (50-100) within therapeutic range. No reported seizures > Pt on Cozaar 50mg daily since 05/20/18, Lopressor 50mg q12hr (increased from 25mg q12h on 05/21), and hydralazine 10mg PRN SBP >160. Hold parameters in effect. > Pt on famotidine 40mg daily for GI prophylaxis, ok per renal function. Remains on reglan 5mg q6h for continued gastroparesis maintenance treatment > Pt on xarelto 15mg daily since 06/03/18 for bilateral upper extremity DVT, last plt 165, ok. PRN MED USAGE: (May) Tylenol for pain/temp x5 Hydralazine used x0 NEW ORDERS NOTED: > Ampicillin IV 1gm q6hr per wound cx 06/24-07/08 Patient was reviewed and discussed at IDT with family in attendance. All updates and reports given including rx rec for abx change per resulting wound cx. No further rx recs at this time, treatments appropriate. Will continue to follow
[2018-07-09 11:01] VITALS: BP 113/57
[2018-07-09] MEDS: GLUCERNA 1.2 1000ML LIQUID GT PRN (18:45)
[2018-07-09 20:11] VITALS: BP 95/53
[2018-07-09] MEDS: ATORVASTATIN 10 MG TABLET GT SCH (20:56)
[2018-07-09] MEDS: ARGINAID GT SCH (20:57)
[2018-07-09] MEDS: MULTIVITAMINS,THERAPEUTIC TABLET GT SCH (20:57)
[2018-07-09] MEDS: RIVAROXABAN 15 MG TABLET PO SCH (21:02)
--- NOTE | 2018-07-09 22:00 | NUR ---
Temperature: 98.9 , no signs of any distress noted, connected to vent on prescribed settings. S/p IV antibiotic for VRE in sacral wound and Urine, on contact isolation precaution, wound care done, turned and repositioned, kept clean and comfortable.
[2018-07-10] MEDS: METOCLOPRAMIDE HCL 10 MG/10 ML UDC GT SCH ×4 (00:44→17:28)
[2018-07-10] MEDS: IPRATROPIUM BROMIDE 0.5 MG/2.5 ML NEBU NEB SCH ×4 (00:48→19:40)
[2018-07-10] MEDS: ALBUTEROL SULFATE 2.5 MG/3 ML NEBU NEB SCH ×4 (00:48→19:40)
[2018-07-10] MEDS: POLYVINYL ALCOHOL OPHT DROPS 15 ML BOTTLE OP SCH ×3 (06:07→21:01)
[2018-07-10] MEDS: FERROUS SULFATE 330 MG/7.5 ML UDC- FOR SA ONLY GT SCH ×3 (06:07→21:01)
[2018-07-10] MEDS: FAMOTIDINE 40 MG TABLET GT SCH (06:07)
[2018-07-10] MEDS: CHOLECALCIFEROL 1,000 UNIT TABLET GT SCH (06:07)
[2018-07-10] MEDS: LOSARTAN POTASSIUM 50 MG TABLET GT SCH (08:03)
[2018-07-10] MEDS: VALPROIC ACID 250 MG/5 ML LIQUID UDC GT SCH ×2 (08:03→20:58)
[2018-07-10] MEDS: ASPIRIN 81 MG TAB.CHEW GT SCH (08:03)
[2018-07-10] MEDS: LEVETIRACETAM 500 MG/5 ML LIQUID UDC GT SCH ×2 (08:04→20:58)
[2018-07-10] MEDS: PROTEIN SUPPLEMENT (PROSTAT) 30 ML LIQUID GT SCH ×2 (08:05→16:10)
[2018-07-10] MEDS: ASCORBIC ACID 500 MG TABLET GT SCH ×2 (08:05→20:59)
[2018-07-10] MEDS: METOPROLOL TARTRATE 50 MG TABLET GT SCH ×2 (08:05→20:59)
[2018-07-10 08:06] VITALS: BP_SYST 118; BP_SYST 142; BP_DIAS 50; BP_DIAS 63
[2018-07-10] MEDS: ACETAMINOPHEN 325 MG TABLET-SA PATIENTS-PAIN ONLY PO SCH ×2 (08:06→21:00)
[2018-07-10] MEDS: SODIUM HYPOCHLORITE 0.125% 473 ML BOTTLE TP SCH ×2 (09:05→21:00)
[2018-07-10] MEDS: HYDROGEN PEROXIDE 3% 118 ML BOTTLE TP SCH ×2 (09:05→21:00)
[2018-07-10] MEDS: Z GUARD REMEDY PASTE 57 GM TUBE TOP SCH ×3 (09:05→21:00)
[2018-07-10] MEDS: LACOSAMIDE 200 MG TABLET XX SCH ×2 (09:05→21:01)
[2018-07-10] MEDS: GLUCERNA 1.2 1000ML LIQUID GT PRN (16:10)
[2018-07-10 19:56] VITALS: BP 112/55
[2018-07-10] MEDS: ATORVASTATIN 10 MG TABLET GT SCH (20:59)
[2018-07-10] MEDS: ARGINAID GT SCH (20:59)
[2018-07-10] MEDS: MULTIVITAMINS,THERAPEUTIC TABLET GT SCH (20:59)
[2018-07-10] MEDS: RIVAROXABAN 15 MG TABLET PO SCH (21:00)
[2018-07-11] MEDS: METOCLOPRAMIDE HCL 10 MG/10 ML UDC GT SCH ×4 (00:14→17:42)
[2018-07-11] MEDS: ALBUTEROL SULFATE 2.5 MG/3 ML NEBU NEB SCH ×4 (00:54→19:24)
[2018-07-11] MEDS: IPRATROPIUM BROMIDE 0.5 MG/2.5 ML NEBU NEB SCH ×4 (00:54→19:24)
--- NOTE | 2018-07-11 01:46 | NUR ---
Afebrile, temperature 98.2, no signs of any respiratory distress noted, fluids given as ordered as ordered. no signs of pain or discomfort noted, Kept clean and comfortable.
--- NOTE | 2018-07-11 05:30 | NUR ---
Cordova catheter not draining,flushed with NS as ordered, noted with 2 blood clots , cordova catheter is now draining with clear yellow urine, handled patient gently,no signs of any distress noted,turned and repositioned, kept clean and comfortable, will continue monitor.
[2018-07-11] MEDS: POLYVINYL ALCOHOL OPHT DROPS 15 ML BOTTLE OP SCH ×3 (05:42→21:14)
[2018-07-11] MEDS: CHOLECALCIFEROL 1,000 UNIT TABLET GT SCH (05:42)
[2018-07-11] MEDS: FERROUS SULFATE 330 MG/7.5 ML UDC- FOR SA ONLY GT SCH ×3 (05:42→21:14)
[2018-07-11] MEDS: FAMOTIDINE 40 MG TABLET GT SCH (05:42)
[2018-07-11 08:04] VITALS: BP 108/50
[2018-07-11] MEDS: ASPIRIN 81 MG TAB.CHEW GT SCH (08:26)
[2018-07-11] MEDS: LOSARTAN POTASSIUM 50 MG TABLET GT SCH (08:27)
[2018-07-11] MEDS: VALPROIC ACID 250 MG/5 ML LIQUID UDC GT SCH ×2 (08:27→21:08)
[2018-07-11] MEDS: LEVETIRACETAM 500 MG/5 ML LIQUID UDC GT SCH ×2 (08:30→21:09)
[2018-07-11] MEDS: ASCORBIC ACID 500 MG TABLET GT SCH ×2 (08:31→21:13)
[2018-07-11] MEDS: METOPROLOL TARTRATE 50 MG TABLET GT SCH ×2 (08:31→21:11)
[2018-07-11] MEDS: PROTEIN SUPPLEMENT (PROSTAT) 30 ML LIQUID GT SCH ×2 (08:31→17:42)
[2018-07-11] MEDS: ACETAMINOPHEN 325 MG TABLET-SA PATIENTS-PAIN ONLY PO SCH ×2 (08:32→21:13)
[2018-07-11] MEDS: LACOSAMIDE 200 MG TABLET XX SCH ×2 (08:33→21:14)
[2018-07-11] MEDS: Z GUARD REMEDY PASTE 57 GM TUBE TOP SCH ×3 (08:33→21:14)
[2018-07-11] MEDS: HYDROGEN PEROXIDE 3% 118 ML BOTTLE TP SCH ×2 (08:33→21:14)
[2018-07-11] MEDS: SODIUM HYPOCHLORITE 0.125% 473 ML BOTTLE TP SCH ×2 (08:33→21:14)
--- NOTE | 2018-07-11 16:39 | NUR ---
Seen by Dr. Beltrán, with new orders carried cbc, cmp, mg, po4 on Sunday07/15/18.
[2018-07-11] MEDS: ACETAMINOPHEN 650 MG/20 ML UDC- SA PATIENTS-PAIN ONLY GT PRN (17:43)
--- NOTE | 2018-07-11 18:10 | NUR ---
Sacral wound debridement done by [facility], bone sample collected and send to lab, here and aware of procedure.
[2018-07-11 19:46] VITALS: BP 112/64
[2018-07-11] MEDS: ATORVASTATIN 10 MG TABLET GT SCH (21:10)
[2018-07-11] MEDS: ARGINAID GT SCH (21:11)
[2018-07-11] MEDS: MULTIVITAMINS,THERAPEUTIC TABLET GT SCH (21:12)
[2018-07-11] MEDS: RIVAROXABAN 15 MG TABLET PO SCH (21:14)
--- NOTE | 2018-07-11 23:05 | NUR ---
RECEIVED PT ON THE HT-50 VENT WITH THE FOLLOWING SETTINGS THAT ARE CHARTED ON THE MECHANICAL VENT NOTES. TRACH TUBE IS PATENT AND SECURED WITH TRACH TIES. HME CHANGED. HHN TX GIVEN PER MD ORDER'S AND WAS TOLERATED WELL W/ NO ADVERSE REACTIONS. SUCTIONED SMALL AMOUNTS OF THIN WHITE/YELLOW SECRETIONS. VENT ALARMS ARE ON AND AUDIBLE. VENT IS PLUGGED IN THE RED OUTLET. BACK UP TRACH AND BMV IS BY BEDSIDE. PT IS TOLERATING CURRENT VENT SETTINGS WELL AT THIS TIME WITH NO SOB NOTED. WILL CONTINUE TO MONITOR.
[2018-07-12] MEDS: METOCLOPRAMIDE HCL 10 MG/10 ML UDC GT SCH ×4 (00:03→17:03)
[2018-07-12] MEDS: GLUCERNA 1.2 1000ML LIQUID GT PRN (00:21)
[2018-07-12] MEDS: IPRATROPIUM BROMIDE 0.5 MG/2.5 ML NEBU NEB SCH ×4 (01:54→19:31)
[2018-07-12] MEDS: ALBUTEROL SULFATE 2.5 MG/3 ML NEBU NEB SCH ×4 (01:54→19:31)
[2018-07-12] MEDS: CHOLECALCIFEROL 1,000 UNIT TABLET GT SCH (05:58)
[2018-07-12] MEDS: FERROUS SULFATE 330 MG/7.5 ML UDC- FOR SA ONLY GT SCH ×3 (05:58→21:53)
[2018-07-12] MEDS: POLYVINYL ALCOHOL OPHT DROPS 15 ML BOTTLE OP SCH ×3 (05:58→21:53)
[2018-07-12] MEDS: FAMOTIDINE 40 MG TABLET GT SCH (05:58)
[2018-07-12 08:02] VITALS: BP 136/67
[2018-07-12] MEDS: METOPROLOL TARTRATE 50 MG TABLET GT SCH ×2 (08:23→21:51)
[2018-07-12] MEDS: LOSARTAN POTASSIUM 50 MG TABLET GT SCH (08:23)
[2018-07-12] MEDS: ASPIRIN 81 MG TAB.CHEW GT SCH (08:23)
[2018-07-12] MEDS: VALPROIC ACID 250 MG/5 ML LIQUID UDC GT SCH ×2 (08:23→21:50)
[2018-07-12] MEDS: LEVETIRACETAM 500 MG/5 ML LIQUID UDC GT SCH ×2 (08:23→21:50)
[2018-07-12] MEDS: HYDROGEN PEROXIDE 3% 118 ML BOTTLE TP SCH ×2 (08:24→21:53)
[2018-07-12] MEDS: ACETAMINOPHEN 325 MG TABLET-SA PATIENTS-PAIN ONLY PO SCH ×2 (08:24→21:53)
[2018-07-12] MEDS: ASCORBIC ACID 500 MG TABLET GT SCH ×2 (08:24→21:52)
[2018-07-12] MEDS: Z GUARD REMEDY PASTE 57 GM TUBE TOP SCH ×3 (08:24→21:53)
[2018-07-12] MEDS: PROTEIN SUPPLEMENT (PROSTAT) 30 ML LIQUID GT SCH ×2 (08:24→16:46)
[2018-07-12] MEDS: SODIUM HYPOCHLORITE 0.125% 473 ML BOTTLE TP SCH ×2 (08:24→21:53)
[2018-07-12] MEDS: LACOSAMIDE 200 MG TABLET XX SCH ×2 (08:24→21:53)
--- NOTE | 2018-07-12 16:42 | NUR ---
RECEIVED STABLE ON CURRENT VENTILATOR SETTINGS OF AC 14 VT 500, PEEP 5 AND FIO2 BLED IN AT 2LPM IN LINE. IN LINE TX GIVEN WITHOUT COMPLICATION. SUCTIONED FOR MODERATE AMOUNT OF PALE WHITE SECRETIONS. TRACH SHILEY # 6 IS SECURE AND CLEAN. VENT IS WORKING WELL WITH ALARMS ACTIVE. CHANGED HUMIDIFIER FILTER.
--- NOTE | 2018-07-12 19:32 | NUR ---
Resident endorsed on HT-50 vent with ordered settings of AC 14,Vt 500, +5, 2LpmO2 bleed in. Leonard 6 DCT: BASE BRANDER used for cuff assessment/inflation. SXN PRN; small amounts of thick pale yellow secretions. No SOB or respiratory distress noted. Inline HHN treatment administered as ordered and tolerated well. Spare trach at bedside. Will continue to monitor.
[2018-07-12 20:05] VITALS: BP 103/52
[2018-07-12] MEDS: ATORVASTATIN 10 MG TABLET GT SCH (21:50)
[2018-07-12] MEDS: ARGINAID GT SCH (21:51)
[2018-07-12] MEDS: MULTIVITAMINS,THERAPEUTIC TABLET GT SCH (21:52)
[2018-07-12] MEDS: RIVAROXABAN 15 MG TABLET PO SCH (21:56)
[2018-07-13] MEDS: METOCLOPRAMIDE HCL 10 MG/10 ML UDC GT SCH ×4 (00:21→17:12)
[2018-07-13] MEDS: IPRATROPIUM BROMIDE 0.5 MG/2.5 ML NEBU NEB SCH ×4 (01:25→19:08)
[2018-07-13] MEDS: ALBUTEROL SULFATE 2.5 MG/3 ML NEBU NEB SCH ×4 (01:25→19:08)
[2018-07-13] MEDS: CHOLECALCIFEROL 1,000 UNIT TABLET GT SCH (06:58)
[2018-07-13] MEDS: FAMOTIDINE 40 MG TABLET GT SCH (06:58)
[2018-07-13] MEDS: FERROUS SULFATE 330 MG/7.5 ML UDC- FOR SA ONLY GT SCH ×3 (06:58→21:41)
[2018-07-13] MEDS: POLYVINYL ALCOHOL OPHT DROPS 15 ML BOTTLE OP SCH ×3 (06:58→21:41)
[2018-07-13 08:02] VITALS: BP 136/61
[2018-07-13] MEDS: METOPROLOL TARTRATE 50 MG TABLET GT SCH ×2 (08:30→21:41)
[2018-07-13] MEDS: VALPROIC ACID 250 MG/5 ML LIQUID UDC GT SCH ×2 (08:30→20:50)
[2018-07-13] MEDS: LEVETIRACETAM 500 MG/5 ML LIQUID UDC GT SCH ×2 (08:30→20:50)
[2018-07-13] MEDS: ASPIRIN 81 MG TAB.CHEW GT SCH (08:30)
[2018-07-13] MEDS: LOSARTAN POTASSIUM 50 MG TABLET GT SCH (08:30)
[2018-07-13] MEDS: PROTEIN SUPPLEMENT (PROSTAT) 30 ML LIQUID GT SCH ×2 (08:32→16:33)
[2018-07-13] MEDS: ACETAMINOPHEN 325 MG TABLET-SA PATIENTS-PAIN ONLY PO SCH ×2 (08:32→20:51)
[2018-07-13] MEDS: ASCORBIC ACID 500 MG TABLET GT SCH ×2 (08:32→20:51)
[2018-07-13] MEDS: Z GUARD REMEDY PASTE 57 GM TUBE TOP SCH ×3 (08:32→20:51)
[2018-07-13] MEDS: HYDROGEN PEROXIDE 3% 118 ML BOTTLE TP SCH ×2 (08:33→20:52)
[2018-07-13] MEDS: SODIUM HYPOCHLORITE 0.125% 473 ML BOTTLE TP SCH ×2 (08:33→20:52)
[2018-07-13] MEDS: LACOSAMIDE 200 MG TABLET XX SCH ×2 (08:33→21:41)
[2018-07-13] MEDS: GLUCERNA 1.2 1000ML LIQUID GT PRN (10:44)
--- NOTE | 2018-07-13 19:05 | NUR ---
PT RECEIVED ON CONTINUOUS VENT AC 12 VT 500 PEEP 5 FIO2 2LPM BLEED. IN LINE TX GIVEN WITH UD ALBUTEROL + UD ATROVENT ORDERED. SUCTION SMALL AMOUNT THICK PALE YELLOW SECRETIONS WITH BLOOD TINGED. TRACH IN PLACED AND SECURED WITH TRACH TIE. BACK UP TRACH AND AMBU BAG AT BEDSIDE. CHANGED IN LINE SUCTION CATHETER. VENT CHECKED, ALARMS WORKING WELL AND AUDIBLE. NO SIGNS OF RESPIRATORY DISTRESS NOTED AT THIS TIME. WILL CONTINUE TO MONITOR.
[2018-07-13 20:30] VITALS: BP 106/46
[2018-07-13] MEDS: MULTIVITAMINS,THERAPEUTIC TABLET GT SCH (20:50)
[2018-07-13] MEDS: ATORVASTATIN 10 MG TABLET GT SCH (20:50)
[2018-07-13] MEDS: ARGINAID GT SCH (20:50)
[2018-07-13] MEDS: RIVAROXABAN 15 MG TABLET PO SCH (21:42)
[2018-07-14] MEDS: ALBUTEROL SULFATE 2.5 MG/3 ML NEBU NEB SCH ×4 (00:45→19:42)
[2018-07-14] MEDS: IPRATROPIUM BROMIDE 0.5 MG/2.5 ML NEBU NEB SCH ×4 (00:45→19:42)
[2018-07-14] MEDS: METOCLOPRAMIDE HCL 10 MG/10 ML UDC GT SCH ×4 (00:54→17:20)
[2018-07-14] MEDS: POLYVINYL ALCOHOL OPHT DROPS 15 ML BOTTLE OP SCH ×3 (05:05→22:07)
[2018-07-14] MEDS: FERROUS SULFATE 330 MG/7.5 ML UDC- FOR SA ONLY GT SCH ×3 (05:05→22:07)
[2018-07-14] MEDS: CHOLECALCIFEROL 1,000 UNIT TABLET GT SCH (05:05)
[2018-07-14] MEDS: FAMOTIDINE 40 MG TABLET GT SCH (05:34)
[2018-07-14 08:02] VITALS: BP 130/58
[2018-07-14] MEDS: ASPIRIN 81 MG TAB.CHEW GT SCH (08:23)
[2018-07-14] MEDS: LOSARTAN POTASSIUM 50 MG TABLET GT SCH (08:24)
[2018-07-14] MEDS: METOPROLOL TARTRATE 50 MG TABLET GT SCH ×2 (08:25→20:42)
[2018-07-14] MEDS: ASCORBIC ACID 500 MG TABLET GT SCH ×2 (08:25→20:43)
[2018-07-14] MEDS: VALPROIC ACID 250 MG/5 ML LIQUID UDC GT SCH ×2 (08:25→20:40)
[2018-07-14] MEDS: LEVETIRACETAM 500 MG/5 ML LIQUID UDC GT SCH ×2 (08:25→20:41)
[2018-07-14] MEDS: PROTEIN SUPPLEMENT (PROSTAT) 30 ML LIQUID GT SCH ×2 (08:25→17:20)
[2018-07-14] MEDS: ACETAMINOPHEN 325 MG TABLET-SA PATIENTS-PAIN ONLY PO SCH ×2 (08:26→20:44)
[2018-07-14] MEDS: HYDROGEN PEROXIDE 3% 118 ML BOTTLE TP SCH ×2 (08:26→20:45)
[2018-07-14] MEDS: Z GUARD REMEDY PASTE 57 GM TUBE TOP SCH ×2 (08:26→20:45)
[2018-07-14] MEDS: LACOSAMIDE 200 MG TABLET XX SCH ×2 (08:30→20:45)
[2018-07-14] MEDS: SODIUM HYPOCHLORITE 0.125% 473 ML BOTTLE TP SCH ×2 (09:00→20:45)
--- NOTE | 2018-07-14 11:21 | NUR ---
RECEIVED STABLE ON CURRENT VENTILATOR SETTINGS OF AC 14 VT 500, PEEP 5 AND FIO2 BLED IN AT 2LPM IN LINE. IN LINE TX GIVEN WITHOUT COMPLICATION O2 SATURATION IS 100%. SUCTIONED FOR MODERATE AMOUNT OF PALE WHITE SECRETIONS. VENT IS WORKING WELL WITH ALARMS ACTIVE. CHANGED HUMIDIFIER FILTER.
[2018-07-14] MEDS: GLUCERNA 1.2 1000ML LIQUID GT PRN (17:59)
[2018-07-14 20:29] VITALS: BP 105/60
[2018-07-14] MEDS: ATORVASTATIN 10 MG TABLET GT SCH (20:41)
[2018-07-14] MEDS: ARGINAID GT SCH (20:42)
[2018-07-14] MEDS: MULTIVITAMINS,THERAPEUTIC TABLET GT SCH (20:43)
[2018-07-14] MEDS: RIVAROXABAN 15 MG TABLET PO SCH (20:44)
[2018-07-15] MEDS: METOCLOPRAMIDE HCL 10 MG/10 ML UDC GT SCH ×5 (00:37→23:06)
[2018-07-15] MEDS: ALBUTEROL SULFATE 2.5 MG/3 ML NEBU NEB SCH ×4 (00:50→19:19)
[2018-07-15] MEDS: IPRATROPIUM BROMIDE 0.5 MG/2.5 ML NEBU NEB SCH ×4 (00:50→19:19)
[2018-07-15] MEDS: FERROUS SULFATE 330 MG/7.5 ML UDC- FOR SA ONLY GT SCH ×3 (05:03→21:24)
[2018-07-15] MEDS: CHOLECALCIFEROL 1,000 UNIT TABLET GT SCH (05:03)
[2018-07-15] MEDS: POLYVINYL ALCOHOL OPHT DROPS 15 ML BOTTLE OP SCH ×3 (05:04→21:24)
[2018-07-15] MEDS: FAMOTIDINE 40 MG TABLET GT SCH (05:36)
[2018-07-15 07:36] LABS: BASOPHILS % (AUTO) 0.1 % (0.0-2.0); LYMPHOCYTES # (AUTO) 0.8 K/uL (20.0-40.0); MEAN CORPUSCULAR HGB CONC 33 g/dL (32.5-36.3)
[2018-07-15 07:47] LABS: HEMATOCRIT 23.8 % (36.7-47.1); HEMOGLOBIN 7.8 g/dL (12.5-16.3); LYMPHOCYTES % (AUTO) 8.7 % (20.5-51.5); MEAN CORPUSCULAR VOLUME 82.9 fL (73.0-96.2); MONOCYTES # (AUTO) 1.1 K/uL (2.0-10.0); MONOCYTES % (AUTO) 11.9 % (0.0-11.0); NEUTROPHILS # (AUTO) 7.1 K/uL (1.8-8.9); NEUTROPHILS % (AUTO) 79.3 % (38.5-71.5); PLATELET COUNT (AUTO) 191 K/uL (152-348); RED BLOOD CELL COUNT(AUTO) 2.87 MIL/uL (4.06-5.63)
[2018-07-15 07:50] LABS: ALANINE AMINOTRANSFERASE 95 U/L (16-63); ALKALINE PHOSPHATASE 108 U/L (50-136); ASPARTATE AMINOTRANSFERASE 48 U/L (15-37); BILIRUBIN,TOTAL 0.3 mg/dL (0.2-1.0); CARBON DIOXIDE 32 mmol/L (21-32); CHLORIDE 102 mmol/L (98-107); CREATININE 0.5 mg/dL (0.6-1.3); GLUCOSE 121 mg/dL (74-106); MAGNESIUM 2.1 mg/dL (1.8-2.4); PHOSPHOROUS 4.7 mg/dL (2.5-4.9); POTASSIUM 4.4 mmol/L (3.5-5.1); TOTAL PROTEIN, SERUM 6.1 g/dL (6.4-8.2); UREA NITROGEN, BLOOD 23 mg/dL (7-18)
[2018-07-15 08:00] VITALS: BP 104/55
[2018-07-15] MEDS: ASCORBIC ACID 500 MG TABLET GT SCH ×2 (08:48→21:25)
[2018-07-15] MEDS: ASPIRIN 81 MG TAB.CHEW GT SCH (08:48)
[2018-07-15] MEDS: LOSARTAN POTASSIUM 50 MG TABLET GT SCH (08:48)
[2018-07-15] MEDS: LEVETIRACETAM 500 MG/5 ML LIQUID UDC GT SCH ×2 (08:48→21:30)
[2018-07-15] MEDS: VALPROIC ACID 250 MG/5 ML LIQUID UDC GT SCH ×2 (08:48→21:29)
[2018-07-15] MEDS: PROTEIN SUPPLEMENT (PROSTAT) 30 ML LIQUID GT SCH ×2 (08:48→17:43)
[2018-07-15] MEDS: METOPROLOL TARTRATE 50 MG TABLET GT SCH ×2 (08:48→21:00)
[2018-07-15] MEDS: HYDROGEN PEROXIDE 3% 118 ML BOTTLE TP SCH ×2 (08:49→21:25)
[2018-07-15] MEDS: SODIUM HYPOCHLORITE 0.125% 473 ML BOTTLE TP SCH ×2 (08:49→21:25)
[2018-07-15] MEDS: LACOSAMIDE 200 MG TABLET XX SCH ×2 (08:49→21:24)
[2018-07-15] MEDS: Z GUARD REMEDY PASTE 57 GM TUBE TOP SCH ×2 (08:49→21:25)
[2018-07-15] MEDS: ACETAMINOPHEN 325 MG TABLET-SA PATIENTS-PAIN ONLY PO SCH ×2 (08:49→21:27)
--- NOTE | 2018-07-15 11:12 | NUR ---
[place] spoke with Michell at crib pad maker Dr. Samuel's office [phone], who stated that Dr. Samuel will be in this afternoon to see patient for his initial eye exam. Addendum: 07/15/18 at 1342 by BERNADETTE HANNAH ERROR: Dr. Samuel informed this [place] that he had already seen patient on 05/27/2018. No further exam needed at this time.
--- NOTE | 2018-07-15 11:51 | NUR ---
[place] spoke with Orin at Dr. Gardner/Dr. Tierney's office [phone] and scheduled patient's dental cleaning for Sunday07/29/18.
[2018-07-15] MEDS: GLUCERNA 1.2 1000ML LIQUID GT PRN (18:38)
[2018-07-15] MEDS: RIVAROXABAN 15 MG TABLET PO SCH (21:00)
[2018-07-15] MEDS: MULTIVITAMINS,THERAPEUTIC TABLET GT SCH (21:25)
[2018-07-15] MEDS: ARGINAID GT SCH (21:26)
[2018-07-15] MEDS: ATORVASTATIN 10 MG TABLET GT SCH (21:26)
[2018-07-15 22:50] VITALS: BP 95/51
[2018-07-16] MEDS: ALBUTEROL SULFATE 2.5 MG/3 ML NEBU NEB SCH ×4 (00:43→19:32)
[2018-07-16] MEDS: IPRATROPIUM BROMIDE 0.5 MG/2.5 ML NEBU NEB SCH ×4 (00:43→19:32)
[2018-07-16] MEDS ORDERED: VANCOMYCIN IV 1 G in PREMIXED 0 EACH IV SCH (01:00)
[2018-07-16] MEDS ORDERED: VANCOMYCIN IV 200 ML ONE (01:43)
[2018-07-16] MEDS ORDERED: PIPERACILLIN/TAZOBACTAM/D5W 50 ML IV ONE (01:43)
[2018-07-16 02:26] LABS: *BILIRUBIN,URIN NEGATIVE (NEGATIVE); *BLOOD, URINE 2+ (NEGATIVE); *CLARITY,URINE CLOUDY (CLEAR); *COLOR,URINE YELLOW (YELLOW); *KETONES,URINE TRACE (NEGATIVE); LEUKOCYTE ESTERASE ,URINE 3+ (NEGATIVE); NITRITE, URINE NEGATIVE (NEGATIVE); PH,URINE 7.5 (5.0-8.0); UGLUCOSE NEGATIVE (NEGATIVE)
[2018-07-16] MEDS: PIPERACILLIN/TAZOBACTAM/D5W 50 ML IV SCH ×4 (02:28→21:36)
[2018-07-16 02:38] LABS: BACTERIA,URINE MANY /HPF (NONE SEEN); RBC,URINE 50-80 /HPF (0-3); WBC,URINE TNTC /HPF (0-3)
[2018-07-16] MEDS: POLYVINYL ALCOHOL OPHT DROPS 15 ML BOTTLE OP SCH ×3 (05:09→21:42)
[2018-07-16] MEDS: METOCLOPRAMIDE HCL 10 MG/10 ML UDC GT SCH ×4 (05:09→23:01)
[2018-07-16] MEDS: CHOLECALCIFEROL 1,000 UNIT TABLET GT SCH (05:09)
[2018-07-16] MEDS: FERROUS SULFATE 330 MG/7.5 ML UDC- FOR SA ONLY GT SCH ×3 (05:09→21:42)
[2018-07-16] MEDS: FAMOTIDINE 40 MG TABLET GT SCH (05:47)
--- NOTE | 2018-07-16 07:09 | NUR ---
Patient was noted with temp 100.8, cooling measures provided and recorded 100.4, pt appears pale, cordova intact and patent with cloudy yellow urine. Tylenol provided as ordered. Patient not in respiratory distress. GTube patent with no residuals. Dr. Howell notified(rehabilitation supervisor) of fever and recently completed ATB for VRE wound. Review of labs: dated 07/15/18: Hgb 7.8, WBC 9.0, other vitals recorded PR115, RR12, BP 95/51, sats 100%. orders for BC x2 STAT, UA with c/s. CBC with diff and CXR in am. VAnco 1 gm IV x 1, pharmacy to dose, Zosyn 3.375gm IV Q6 hours x 7days. May access peripheral IV on lower extremities. Insertion of g24 introcan on right foot with blood return. Orders noted and carried out. rechecked vitals recorded T98.6, RR14, NC 103, BP 95/52, Sats 99%. No adverse effects noted with ATB therapy.Continue to monitor.
[2018-07-16 07:10] VITALS: BP 125/59
--- NOTE | 2018-07-16 07:30 | NUR ---
Pt received in semi tellez position, obtunded, unable to communicate, and on continuous mechanical ventilation via Shiley 6 DCT trach. Pt is on [place] HT-50 ventilator with ordered settings of A/C-12, VT-500, PEEP+5, FIO2-28% 2LPM Bleed-in oxygen. Tolerating vent settings well. SpO2-100% Trach is patent and secured. Minimal occluding volume technique used to assess cuff inflation. In-line nebulizer treatments given as ordered, Q6 with Albuterol/Atrovent. Treatments tolerated well, no adverse reactions noted. Sxn'd and lavaged as needed. Suctioned moderate amounts of thick white secretions. HME changed. PPE used. No signs or symptoms of respiratory distress. Ventilator alarm parameters checked, on and audible. Vent plugged into red emergency outlet. Bag/valve/mask and backup trach at bedside. Will continue to monitor.
[2018-07-16 08:04] LABS: BASOPHILS % (AUTO) 0.4 % (0.0-2.0); EOSINOPHILS % (AUTO) 0.4 % (0.0-7.0); HEMATOCRIT 22.2 % (36.7-47.1); LYMPHOCYTES % (AUTO) 12.2 % (20.5-51.5); MEAN CORPUSCULAR HEMOGLOBIN 26.6 uug (23.8-33.4); MEAN CORPUSCULAR HGB CONC 32 g/dL (32.5-36.3); MEAN CORPUSCULAR VOLUME 83.1 fL (73.0-96.2); MONOCYTES # (AUTO) 1.4 K/uL (2.0-10.0); MONOCYTES % (AUTO) 16.8 % (0.0-11.0); NEUTROPHILS # (AUTO) 5.8 K/uL (1.8-8.9); NEUTROPHILS % (AUTO) 70.2 % (38.5-71.5); PLATELET COUNT (AUTO) 175 K/uL (152-348); RED BLOOD CELL COUNT(AUTO) 2.67 MIL/uL (4.06-5.63); WHITE BLOOD COUNT (AUTO) 8.2 K/uL (3.6-10.2)
[2018-07-16 08:07] LABS: HEMOGLOBIN 7.1 g/dL (12.5-16.3)
[2018-07-16] MEDS: ASPIRIN 81 MG TAB.CHEW GT SCH (08:19)
[2018-07-16] MEDS: LEVETIRACETAM 500 MG/5 ML LIQUID UDC GT SCH ×2 (08:19→21:39)
[2018-07-16] MEDS: LOSARTAN POTASSIUM 50 MG TABLET GT SCH (08:19)
[2018-07-16] MEDS: VALPROIC ACID 250 MG/5 ML LIQUID UDC GT SCH ×2 (08:19→21:39)
[2018-07-16] MEDS: ASCORBIC ACID 500 MG TABLET GT SCH ×2 (08:21→21:41)
[2018-07-16] MEDS: PROTEIN SUPPLEMENT (PROSTAT) 30 ML LIQUID GT SCH ×2 (08:21→17:47)
[2018-07-16] MEDS: SODIUM HYPOCHLORITE 0.125% 473 ML BOTTLE TP SCH ×2 (08:21→21:42)
[2018-07-16] MEDS: METOPROLOL TARTRATE 50 MG TABLET GT SCH ×2 (08:21→21:00)
[2018-07-16] MEDS: HYDROGEN PEROXIDE 3% 118 ML BOTTLE TP SCH ×2 (08:21→21:42)
[2018-07-16] MEDS: Z GUARD REMEDY PASTE 57 GM TUBE TOP SCH ×2 (08:21→21:42)
[2018-07-16] MEDS: ACETAMINOPHEN 325 MG TABLET-SA PATIENTS-PAIN ONLY PO SCH ×2 (08:22→21:41)
[2018-07-16] MEDS: LACOSAMIDE 200 MG TABLET XX SCH ×2 (08:26→21:44)
[2018-07-16 09:27] LABS: LYMPHOCYTES % (MANUAL) 15 % (20-40); MONOCYTES % (MANUAL) 10 % (2-10); NEUTROPHILS % (MANUAL) 75 % (42-75)
--- NOTE | 2018-07-16 14:38 | NUR ---
Clinical Pharmacy Note: Vancomycin Dosing per Pharmacy Subjective: Vancomycin IV to start on this 63 yo male patient for fever (waiting for MD note). Objective: BUN 23/Scr 0.5 WBC 8.2 Temperature 98.7 Assessment/Plan: Patient received vanco 1gm IVPB x1 today at 0130. Will start vancomycin 1250mg IVPB Q17hr for a predicted vancomycin steady state trough level of 15 mcg/ml. 1st dose today at 1700. Will draw a vancomycin trough level prior to the 4th dose of vancomycin (not ordered yet). Will monitor renal function (on order for /) and adjust vancomycin dose, if needed, should renal function change significantly. Will follow daily.
--- NOTE | 2018-07-16 16:40 | NUR ---
Pt transferred to new room using HT-50 vent on battery and oxygen tank. No complications. Resumed external power and oxygen to ventilator and reconnected alarm cable in new location. No changes made to vent settings. Vent alarm parameters checked, on and audible. Vent plugged into red emergency outlet. Bag/valve/mask and back up trach at bedside.
[2018-07-16] MEDS: VANCOMYCIN IV 1,250 MG in IV DEXTROSE 5% 500 ML IV SCH (17:00)
[2018-07-16 21:29] VITALS: BP 99/44
[2018-07-16] MEDS: ATORVASTATIN 10 MG TABLET GT SCH (21:39)
[2018-07-16] MEDS: MULTIVITAMINS,THERAPEUTIC TABLET GT SCH (21:40)
[2018-07-16] MEDS: ARGINAID GT SCH (21:40)
[2018-07-16] MEDS: RIVAROXABAN 15 MG TABLET PO SCH (21:46)
[2018-07-17] MEDS: ALBUTEROL SULFATE 2.5 MG/3 ML NEBU NEB SCH ×4 (01:44→19:30)
[2018-07-17] MEDS: IPRATROPIUM BROMIDE 0.5 MG/2.5 ML NEBU NEB SCH ×4 (01:44→19:30)
[2018-07-17] MEDS: PIPERACILLIN/TAZOBACTAM/D5W 50 ML IV SCH ×3 (02:39→14:30)
[2018-07-17] MEDS: GLUCERNA 1.2 1000ML LIQUID GT PRN (02:53)
[2018-07-17] MEDS: POLYVINYL ALCOHOL OPHT DROPS 15 ML BOTTLE OP SCH ×2 (05:59→14:11)
[2018-07-17] MEDS: CHOLECALCIFEROL 1,000 UNIT TABLET GT SCH (05:59)
[2018-07-17] MEDS: FERROUS SULFATE 330 MG/7.5 ML UDC- FOR SA ONLY GT SCH ×2 (05:59→14:11)
[2018-07-17] MEDS: FAMOTIDINE 40 MG TABLET GT SCH (05:59)
[2018-07-17] MEDS: METOCLOPRAMIDE HCL 10 MG/10 ML UDC GT SCH ×3 (05:59→17:47)
[2018-07-17 07:22] LABS: CARBON DIOXIDE 31 mmol/L (21-32); CHLORIDE 102 mmol/L (98-107); CREATININE 0.5 mg/dL (0.6-1.3); GLUCOSE 129 mg/dL (74-106); POTASSIUM 3.9 mmol/L (3.5-5.1); UREA NITROGEN, BLOOD 27 mg/dL (7-18)
--- NOTE | 2018-07-17 07:40 | NUR ---
PT REMAIN ON CONTINUOUS VENT AC 12 VT 500 PEEP 5 FIO2 2LPM BLEED. IN LINE TX GIVEN WITH UD ALBUTEROL + UD ATROVENT ORDERED. SUCTION SMALL AMOUNT THICK PALE YELLOW SECRETIONS. TRACH IN PLACED AND SECURED WITH TRACH TIE. BACK UP TRACH AND AMBU BAG AT BEDSIDE. VENT CHECKED, ALARMS WORKING WELL AND AUDIBLE. NO SIGNS OF RESPIRATORY DISTRESS NOTED AT THIS TIME. WILL CONTINUE TO MONITOR.
[2018-07-17 07:43] LABS: HEMATOCRIT 19.9 % (36.7-47.1)
[2018-07-17 07:44] LABS: HEMOGLOBIN 6.5 g/dL (12.5-16.3)
[2018-07-17 07:51] LABS: *OCCULT BLOOD STOOL NEGATIVE (NEGATIVE)
[2018-07-17] MEDS: LOSARTAN POTASSIUM 50 MG TABLET GT SCH (09:00)
--- NOTE | 2018-07-17 09:00 | NUR ---
left message to lulú winslow regarding hemog 6.5 spoke with Yasmine.
[2018-07-17 09:40] VITALS: BP 100/52
[2018-07-17] MEDS: ASPIRIN 81 MG TAB.CHEW GT SCH (09:45)
[2018-07-17] MEDS: VALPROIC ACID 250 MG/5 ML LIQUID UDC GT SCH (09:47)
[2018-07-17] MEDS: LEVETIRACETAM 500 MG/5 ML LIQUID UDC GT SCH (09:47)
[2018-07-17] MEDS: PROTEIN SUPPLEMENT (PROSTAT) 30 ML LIQUID GT SCH ×2 (09:48→17:47)
[2018-07-17] MEDS: ASCORBIC ACID 500 MG TABLET GT SCH (09:49)
[2018-07-17] MEDS: ACETAMINOPHEN 325 MG TABLET-SA PATIENTS-PAIN ONLY PO SCH (09:50)
[2018-07-17] MEDS: SODIUM HYPOCHLORITE 0.125% 473 ML BOTTLE TP SCH (09:51)
[2018-07-17] MEDS: HYDROGEN PEROXIDE 3% 118 ML BOTTLE TP SCH (09:51)
[2018-07-17] MEDS: Z GUARD REMEDY PASTE 57 GM TUBE TOP SCH (09:51)
[2018-07-17] MEDS: LACOSAMIDE 200 MG TABLET XX SCH (09:51)
[2018-07-17] MEDS: METOPROLOL TARTRATE 50 MG TABLET GT SCH (09:51)
--- NOTE | 2018-07-17 10:00 | NUR ---
left message to Dr Randall Acuna regarding hemog 6.5,spoke to clover.
[2018-07-17] MEDS: VANCOMYCIN IV 1,250 MG in IV DEXTROSE 5% 500 ML IV SCH (10:27)
--- NOTE | 2018-07-17 14:47 | NUR ---
Clinical Pharmacy Note: Vancomycin Dosing per Pharmacy Subjective: Vancomycin IV to continue on this 63 yo male patient for fever, work up for sepsis, recurrent UTIs. Objective: BUN 27/Scr 0.5 WBC 8.2 (07/17) Temperature 98.2 Assessment/Plan: As renal fxn stable, will continue vancomycin 1250mg IVPB Q17hr for a predicted vancomycin steady state trough level of 15 mcg/ml. 3rd dose will be tomorrow 07/17 @0300. Will draw a vancomycin trough level prior to the 4th dose of vancomycin (not ordered yet). Will follow daily.
--- NOTE | 2018-07-17 15:19 | NUR ---
new orders from Dr Randall Acuna to transfuse 1 unit of prbc .
--- NOTE | 2018-07-17 16:51 | NUR ---
CAMDEN met with patient's Zoya and informed her that the next IDT meeting for the patient is scheduled for 07/23/18 at 11am.
--- NOTE | 2018-07-17 17:30 | NUR ---
Randall winslow aware of pt has Dvt in both upper arms and he has poor peripheral lines,in the lower extremities.
--- NOTE | 2018-07-17 18:25 | NUR ---
PT TRANSPORTED TO [facility] BAGGING WITH 100% O2 WITHOUT COMPLICATIONS NOTED. PLACED ON VENT WITH SAME SETTINGS AC 12 VT 500 PEEP 5 FIO2 28%.
--- NOTE | 2018-07-17 18:45 | NUR ---
pt was transfered to room 304,for blood transfusion and central line placement.accompanied by 2 rt's and a Rn,report given to Mackenzie Buchanan. at bedside.
[2018-07-17] MEDS ORDERED: ZINC113P2 TP (22:27)
[2018-07-17] MEDS ORDERED: ASCO-340 GT (22:27)
[2018-07-17] MEDS ORDERED: FERR220S6 GT (22:27)
[2018-07-17] MEDS ORDERED: SODI473S8 MC (22:27)
[2018-07-17] MEDS ORDERED: AMIN30LI2 GT (22:27)
[2018-07-17] MEDS ORDERED: METO50TA16 PO (22:27)
[2018-07-17] MEDS ORDERED: RIVA15TA2 GT (22:27)
[2018-07-17] MEDS ORDERED: LACO200T2 GT (22:27)
[2018-07-17] MEDS ORDERED: HYDR-4075 GT (22:27)
[2018-07-17] MEDS ORDERED: VANC1.2521 IV (22:27)
[2018-07-17] MEDS ORDERED: IPRA0.2S6 NEB (22:27)
[2018-07-17] MEDS ORDERED: ATOR10TA GT (22:27)
[2018-07-17] MEDS ORDERED: BLOO-140 IN (22:27)
[2018-07-17] MEDS ORDERED: VALP250S3 GT (22:27)
[2018-07-17] MEDS ORDERED: ALBU2.5V38 IH (22:27)
[2018-07-17] MEDS ORDERED: DEXT15DR6 OP (22:27)
[2018-07-17] MEDS ORDERED: SODI473S8 TP (22:27)
[2018-07-17] MEDS ORDERED: METO5SOL GT (22:27)
[2018-07-17] MEDS ORDERED: ACET160S2 GT (22:27)
[2018-07-17] MEDS ORDERED: CHOL10002 GT (22:27)
[2018-07-17] MEDS ORDERED: HYDR1TOW4 TP (22:27)
[2018-07-17] MEDS ORDERED: LEVE100S GT (22:27)
[2018-07-17] MEDS ORDERED: ARGI1POW13 GT (22:27)
[2018-07-17] MEDS ORDERED: LOSA50TA39 GT (22:27)
[2018-07-17] MEDS ORDERED: PIPE3.379 IV (22:27)
[2018-07-17] MEDS ORDERED: ASPI81TA31 GT (22:27)
[2018-07-17] MEDS ORDERED: MULT1TAB73 GT (22:27)
[2018-07-17] MEDS ORDERED: FAMO40TA7 GT (22:27)
[2018-07-17] MEDS ORDERED: ACET160S2 PO (22:27)
--- NOTE | 2018-07-18 12:30 | NUR ---
SEEN BY AGUS ROCHA.
[2018-07-18] MEDS ORDERED: PIPE3.379 IV (14:35)
--- NOTE | 2018-07-18 15:15 | NUR ---
REPORT WAS OBTAINED FROM WHITNEY FROM [facility] FOR READMISSION OF PT. TO SUBACUTE.
[2018-07-18 15:30] VITALS: BP 117/71
--- NOTE | 2018-07-18 15:30 | NUR ---
PT. WAS READMITTED AT THIS TIME WITH RT AND SHOWER DOORS AND PANELS FABRICATOR AT BEDSIDE WITH VENT SETTINGS WELL TOLERTAED AND V/S FOLLOW:TEMP 98.6F,HR 100X',TEMP.99.4F(AXILLAR)AND RR 18X' B/P 117/71 ,P/A/ 0/10,SKIN DRY AND WARM TO TOUCH ,EDEMA ON ALL EXT 2+ .SKIN ASSESSMENT WAS DONE AND FOLLOW:CHEST WITH FAVIOLA SCAB,NO REDNESS AROUND,RT FEMORAL 3 LUMMEN CENTRAL LINE PATENT. SACRAL WOUND 5.5X5X2.4 AND UNDERMINING FROM 12 TO 4 O'CLOCK 3 CM WITH RED AND MACERATED EDGES ANDWOPUND BED WITH GREYISH YELLOWISH SLOUGH IN SMALL AREA (SEE PICTURE)
--- NOTE | 2018-07-18 15:30 | NUR ---
Pt transported from rm 304 to subacute rm 424A without incident.. Pt in semi tellez position, unable to communicate, withdraws to physical stimuli.. Continuous mechanical ventilation with vent: HT-50 settings: A/C 12, Vt 500, PEEP +5, FIO2 28% with 2 Lpm bleed in, tolerating settings well, no changes made to settings at this time.. Pt trach: Leonard 6 DCT, in place and secure with tie.. No respiratory distress noted at this time, will continue to monitor.. Vent alarms functioning normally at this time / on / audible.. BVM / back up trach at bedside, vent plugged in to red emergency outlet..
--- NOTE | 2018-07-18 16:30 | NUR ---
READMISSION ORDERS WERE VERIFIED WITH DR. HAMMER AT THIS TIME AND CARRIED THEM OUT.
--- NOTE | 2018-07-18 16:46 | NUR ---
Upon patient's return back to subacute, SW met with patient's and daughter to check in on how they were doing. SW allowed both of them to express their feelings. Patient's became tearful, expressing worry about whether patient will ever recover. SW provided supportive counseling. SW also provided some education on the impact of chronic illness on patient's family members/caregivers, and the importance of self-care to help them cope. SW explored some coping strategies that patient's uses now to help her cope with her current stressors, and patient's identified prayer and spending time with her grandchildren. SW commended patient's for using positive coping strategies and encouraged her to continue using these strategies. Patient's and daughter were receptive to CAMDEN's support and thanked her for her time. CAMDEN reminded them that [facility] provides individual supportive counseling and that monthly family support groups are also available for all subacute families.
[2018-07-18] MEDS ORDERED: hydrALAZINE HCL 10 MG TABLET GT PRN (18:30)
[2018-07-18] MEDS ORDERED: ACETAMINOPHEN 650 MG/20 ML UDC- SA PATIENTS-FEVER ONLY GT PRN (18:30)
[2018-07-18] MEDS ORDERED: Z GUARD REMEDY PASTE 57 GM TUBE TOP PRN (18:45)
[2018-07-18] MEDS ORDERED: SODIUM HYPOCHLORITE 0.125% 473 ML BOTTLE TP PRN (18:45)
[2018-07-18] MEDS ORDERED: NORMAL SALINE FLUSH 10 ML DISP.SYRIN IV PRN (19:00)
[2018-07-18] MEDS ORDERED: HYDROGEN PEROXIDE 3% 118 ML BOTTLE TP PRN (19:00)
[2018-07-18] MEDS: ALBUTEROL SULFATE 2.5 MG/3 ML NEBU NEB SCH (19:08)
[2018-07-18] MEDS: IPRATROPIUM BROMIDE 0.5 MG/2.5 ML NEBU NEB SCH (19:08)
[2018-07-18 20:00] VITALS: BP 122/58
[2018-07-18] MEDS: NEOMY/BACITRAC/POLYMI OINT 28.35 GM TUBE TP SCH (21:00)
[2018-07-18] MEDS: NORMAL SALINE FLUSH 10 ML DISP.SYRIN IV SCH (21:00)
[2018-07-18] MEDS: HYDROGEN PEROXIDE 3% 118 ML BOTTLE TP SCH (21:00)
[2018-07-18] MEDS: LACOSAMIDE 200 MG TABLET XX SCH (21:00)
[2018-07-18] MEDS: SODIUM HYPOCHLORITE 0.125% 473 ML BOTTLE TP SCH (21:00)
[2018-07-18] MEDS: VALPROIC ACID 250 MG/5 ML LIQUID UDC GT SCH (21:21)
[2018-07-18] MEDS: ATORVASTATIN 10 MG TABLET GT SCH (21:21)
[2018-07-18] MEDS: METOPROLOL TARTRATE 50 MG TABLET GT SCH (21:21)
[2018-07-18] MEDS: LEVETIRACETAM 500 MG/5 ML LIQUID UDC GT SCH (21:21)
[2018-07-18] MEDS: MULTIVITAMINS,THERAPEUTIC TABLET GT SCH (21:22)
[2018-07-18] MEDS: Z GUARD REMEDY PASTE 57 GM TUBE TOP SCH (21:22)
[2018-07-18] MEDS: ARGINAID GT SCH (21:22)
[2018-07-18] MEDS: ACETAMINOPHEN 325 MG TABLET-SA PATIENTS-PAIN ONLY PO SCH (21:22)
[2018-07-18] MEDS: ASCORBIC ACID 500 MG TABLET GT SCH (21:22)
[2018-07-18] MEDS: RIVAROXABAN 15 MG TABLET PO SCH (21:55)
[2018-07-18] MEDS: PIPERACILLIN/TAZOBACTAM/D5W 50 ML IV SCH (22:00)
[2018-07-18] MEDS: FERROUS SULFATE 330 MG/7.5 ML UDC- FOR SA ONLY GT SCH (22:24)
[2018-07-18] MEDS: POLYVINYL ALCOHOL OPHT DROPS 15 ML BOTTLE OP SCH (22:24)
[2018-07-19] VITALS: BP 113/55
[2018-07-19] MEDS: METOCLOPRAMIDE HCL 10 MG/10 ML UDC GT SCH ×4 (00:44→17:10)
[2018-07-19] MEDS: ALBUTEROL SULFATE 2.5 MG/3 ML NEBU NEB SCH ×4 (01:19→19:33)
[2018-07-19] MEDS: IPRATROPIUM BROMIDE 0.5 MG/2.5 ML NEBU NEB SCH ×4 (01:19→19:33)
--- NOTE | 2018-07-19 03:12 | NUR ---
S/p blood transfusion, no adverse reactions noted. Right femoral central line is intact and flushing well. On Zosyn IV for sacral wound osteomylitis, no adverse reactions noted. Afebrile, on ventilator support, no respiratory distress noted, treatment done to sacral wound and Mid chest dry scab as ordered.cordova catheter draining well to yellow urine, good daniel care rendered, turned and repositioned, kept clean and comfortable.
[2018-07-19 05:00] VITALS: BP 105/56
[2018-07-19] MEDS: POLYVINYL ALCOHOL OPHT DROPS 15 ML BOTTLE OP SCH ×3 (05:11→22:04)
[2018-07-19] MEDS: CHOLECALCIFEROL 1,000 UNIT TABLET GT SCH (05:11)
[2018-07-19] MEDS: FERROUS SULFATE 330 MG/7.5 ML UDC- FOR SA ONLY GT SCH ×3 (05:11→22:04)
[2018-07-19] MEDS: FAMOTIDINE 40 MG TABLET GT SCH (05:59)
[2018-07-19] MEDS: PIPERACILLIN/TAZOBACTAM/D5W 50 ML IV SCH ×2 (06:12→14:03)
[2018-07-19] MEDS ORDERED: BLOOD SUGAR DIAGNOSTIC 1 EACH STRIP VI SCH (06:30)
[2018-07-19 06:59] LABS: BASOPHILS % (AUTO) 0.2 % (0.0-2.0); HEMATOCRIT 25.4 % (36.7-47.1); HEMOGLOBIN 8.4 g/dL (12.5-16.3); LYMPHOCYTES % (AUTO) 17.8 % (20.5-51.5); MEAN CORPUSCULAR HEMOGLOBIN 27.3 uug (23.8-33.4); MEAN CORPUSCULAR HGB CONC 33 g/dL (32.5-36.3); MEAN CORPUSCULAR VOLUME 82.8 fL (73.0-96.2); MONOCYTES # (AUTO) 0.6 K/uL (2.0-10.0); MONOCYTES % (AUTO) 10.7 % (0.0-11.0); NEUTROPHILS # (AUTO) 4.2 K/uL (1.8-8.9); NEUTROPHILS % (AUTO) 71.3 % (38.5-71.5); PLATELET COUNT (AUTO) 202 K/uL (152-348); RED BLOOD CELL COUNT(AUTO) 3.07 MIL/uL (4.06-5.63); WHITE BLOOD COUNT (AUTO) 5.9 K/uL (3.6-10.2)
[2018-07-19 07:14] LABS: ALANINE AMINOTRANSFERASE 136 U/L (16-63); ALKALINE PHOSPHATASE 124 U/L (50-136); ASPARTATE AMINOTRANSFERASE 90 U/L (15-37); BILIRUBIN,TOTAL 0.3 mg/dL (0.2-1.0); CARBON DIOXIDE 31 mmol/L (21-32); CHLORIDE 104 mmol/L (98-107); CREATININE 0.5 mg/dL (0.6-1.3); GLUCOSE 136 mg/dL (74-106); POTASSIUM 3.6 mmol/L (3.5-5.1); TOTAL PROTEIN, SERUM 5.6 g/dL (6.4-8.2); UREA NITROGEN, BLOOD 17 mg/dL (7-18)
--- NOTE | 2018-07-19 08:00 | NUR ---
RT. FEMORAL CENTRAL LINE DRESSING WAS CHANGED IN STERILE MANNER ,REMAINS INTACT AND PATENT.
[2018-07-19 08:12] VITALS: BP 119/41
[2018-07-19] MEDS ORDERED: DEXTROSE 50% 50 ML DISP.SYRIN IV PRN (08:45)
[2018-07-19] MEDS: PROTEIN SUPPLEMENT (PROSTAT) 30 ML LIQUID GT SCH ×2 (08:55→17:10)
[2018-07-19] MEDS: LOSARTAN POTASSIUM 50 MG TABLET GT SCH (08:55)
[2018-07-19] MEDS: ASPIRIN 81 MG TAB.CHEW GT SCH (08:55)
[2018-07-19] MEDS: METOPROLOL TARTRATE 50 MG TABLET GT SCH ×2 (08:55→20:44)
[2018-07-19] MEDS: ASCORBIC ACID 500 MG TABLET GT SCH ×2 (08:55→20:45)
[2018-07-19] MEDS: VALPROIC ACID 250 MG/5 ML LIQUID UDC GT SCH ×2 (08:55→20:42)
[2018-07-19] MEDS: LEVETIRACETAM 500 MG/5 ML LIQUID UDC GT SCH ×2 (08:55→20:42)
[2018-07-19] MEDS: SODIUM HYPOCHLORITE 0.125% 473 ML BOTTLE TP SCH ×2 (08:56→20:47)
[2018-07-19] MEDS: NEOMY/BACITRAC/POLYMI OINT 28.35 GM TUBE TP SCH ×2 (08:56→20:47)
[2018-07-19] MEDS: HYDROGEN PEROXIDE 3% 118 ML BOTTLE TP SCH ×2 (08:56→20:47)
[2018-07-19] MEDS: ACETAMINOPHEN 325 MG TABLET-SA PATIENTS-PAIN ONLY PO SCH ×2 (08:56→20:46)
[2018-07-19] MEDS: Z GUARD REMEDY PASTE 57 GM TUBE TOP SCH ×2 (08:56→20:46)
[2018-07-19] MEDS: NORMAL SALINE FLUSH 10 ML DISP.SYRIN IV SCH ×2 (09:00→21:00)
[2018-07-19] MEDS: LACOSAMIDE 200 MG TABLET XX SCH ×2 (09:03→20:51)
--- NOTE | 2018-07-19 14:00 | NUR ---
SEEN BY AGUS ROCHA.
--- NOTE | 2018-07-19 17:15 | NUR ---
PT ON HT-50 VENT, SETTINGS ARE AC 12, Vt-500, +5, 2 LPM BLEED IN. SHILEY 6 TRACH IS PATENT AND SECURED, SITE IS CLEAN AND DRY. NO S/S OF RESPIRATORY DISTRESS, DOING WELL ON CURRENT VENT SETTINGS. TXS TOLERATED WELL. SUCTIONED SMALL AMOUNTS OF WHITE THICK SECRETIONS. BVM AND BACK UP TRACH AT BEDSIDE. WILL CONTINUE TO MONITOR.
--- NOTE | 2018-07-19 18:00 | NUR ---
SEEN BY WAYNE JeromeIEugenio)AND JOSEFINA.
--- NOTE | 2018-07-19 19:36 | NUR ---
seen and examined by TEODORO James with new order to discontinue Zosyn IV and start on Ampicillin ! gram IVPB every 6 hours X 6 weeks for sacral wound osteomylitis, Spoke to daughter Vignesh and she was ok with plan of care.
[2018-07-19 20:00] VITALS: BP 109/59
[2018-07-19] MEDS: ATORVASTATIN 10 MG TABLET GT SCH (20:44)
[2018-07-19] MEDS: ARGINAID GT SCH (20:45)
[2018-07-19] MEDS: MULTIVITAMINS,THERAPEUTIC TABLET GT SCH (20:45)
[2018-07-19] MEDS: RIVAROXABAN 15 MG TABLET PO SCH (21:00)
[2018-07-19] MEDS ORDERED: PIPERACILLIN/TAZOBACTAM/D5W 3.375 G in PREMIXED 1 EACH IV SCH (22:00)
[2018-07-20] MEDS: NS IV SCH ×4 (00:05→17:30)
[2018-07-20] MEDS: AMPICILLIN IV SCH ×4 (00:05→17:30)
[2018-07-20] MEDS: METOCLOPRAMIDE HCL 10 MG/10 ML UDC GT SCH ×4 (00:19→18:04)
[2018-07-20] MEDS: GLUCERNA 1.2 1000ML LIQUID GT PRN (00:20)
[2018-07-20 01:14] VITALS: BP 113/56
[2018-07-20] MEDS: ALBUTEROL SULFATE 2.5 MG/3 ML NEBU NEB SCH ×4 (01:26→19:19)
[2018-07-20] MEDS: IPRATROPIUM BROMIDE 0.5 MG/2.5 ML NEBU NEB SCH ×4 (01:26→19:19)
--- NOTE | 2018-07-20 01:35 | NUR ---
On Ampicillin IV for sacral wound osteomylitis, no adverse reactions noted. Right femoral central is intact. On contact isolation for VRE of scaral wound and VRE of urine. Treatment done to sacral wound as ordered, turned and repositioned, kept clean and comfortable.
[2018-07-20 05:16] VITALS: BP 113/59
[2018-07-20] MEDS: FERROUS SULFATE 330 MG/7.5 ML UDC- FOR SA ONLY GT SCH ×3 (05:55→21:02)
[2018-07-20] MEDS: POLYVINYL ALCOHOL OPHT DROPS 15 ML BOTTLE OP SCH ×3 (05:55→21:02)
[2018-07-20] MEDS: CHOLECALCIFEROL 1,000 UNIT TABLET GT SCH (05:55)
[2018-07-20] MEDS: FAMOTIDINE 40 MG TABLET GT SCH (05:56)
[2018-07-20] MEDS: BLOOD SUGAR DIAGNOSTIC 1 EACH STRIP VI SCH (05:56)
[2018-07-20] MEDS: ASPIRIN 81 MG TAB.CHEW GT SCH (08:49)
[2018-07-20] MEDS: LOSARTAN POTASSIUM 50 MG TABLET GT SCH (08:49)
[2018-07-20] MEDS: VALPROIC ACID 250 MG/5 ML LIQUID UDC GT SCH ×2 (08:49→20:59)
[2018-07-20] MEDS: ASCORBIC ACID 500 MG TABLET GT SCH ×2 (08:50→21:00)
[2018-07-20] MEDS: METOPROLOL TARTRATE 50 MG TABLET GT SCH ×2 (08:50→21:00)
[2018-07-20] MEDS: PROTEIN SUPPLEMENT (PROSTAT) 30 ML LIQUID GT SCH ×2 (08:50→18:00)
[2018-07-20] MEDS: LEVETIRACETAM 500 MG/5 ML LIQUID UDC GT SCH ×2 (08:50→20:59)
[2018-07-20] MEDS: SODIUM HYPOCHLORITE 0.125% 473 ML BOTTLE TP SCH ×2 (08:51→21:01)
[2018-07-20] MEDS: ACETAMINOPHEN 325 MG TABLET-SA PATIENTS-PAIN ONLY PO SCH ×2 (08:51→21:01)
[2018-07-20] MEDS: HYDROGEN PEROXIDE 3% 118 ML BOTTLE TP SCH ×2 (08:51→21:01)
[2018-07-20] MEDS: Z GUARD REMEDY PASTE 57 GM TUBE TOP SCH ×2 (08:51→21:01)
[2018-07-20] MEDS: LACOSAMIDE 200 MG TABLET XX SCH ×2 (08:52→21:01)
[2018-07-20] MEDS: NEOMY/BACITRAC/POLYMI OINT 28.35 GM TUBE TP SCH ×2 (08:52→21:01)
[2018-07-20] MEDS: NORMAL SALINE FLUSH 10 ML DISP.SYRIN IV SCH ×2 (09:00→21:00)
[2018-07-20 12:04] VITALS: BP 119/66
--- NOTE | 2018-07-20 12:46 | NUR ---
NEW ORDER CARRIED OUT FROM DR. KUMAR(MORTUARY TECHNICIAN FOR DR. ARREDONDO) FOR NORCO 5/325 FOR SEVERE PAIN (5-10 ) MANIFESTED BY INCREASED HR AND RESPIRATION AND SHAKING DURING WOUND TX.PT'S RESP LIBERTARIAN TELLY WAS AWARE AND IN AGREEMENT .
--- NOTE | 2018-07-20 18:12 | NUR ---
NOTED INSERTION SITE RT FEMORAL CENTRAL LINE WITH LOCAL BLEEDING BY ITSELF AND BLOOD CLOT FORMATION ON INSERTION SITE ,DR. VENTURA (HAND DRY CLEANER FOR DR. WRAY )WAS PAGED.NO SWELLLING OR REDNESS OBSERVED ON AREA.
--- NOTE | 2018-07-20 18:26 | NUR ---
DR. VENTURA CALLED BACK AND AWARE OF LOCAL BLEEDING FROM INSERTION SITE AND ASKED CH. NURSE TO JUST APPLY PRESSURE NEEDED AND KEEP USING IT.
[2018-07-20 20:00] VITALS: BP 103/53
[2018-07-20] MEDS: ATORVASTATIN 10 MG TABLET GT SCH (20:59)
[2018-07-20] MEDS: ARGINAID GT SCH (21:00)
[2018-07-20] MEDS: MULTIVITAMINS,THERAPEUTIC TABLET GT SCH (21:00)
[2018-07-20] MEDS: RIVAROXABAN 15 MG TABLET PO SCH (21:16)
--- NOTE | 2018-07-20 23:10 | NUR ---
Afebrile, on Ampicillin IV for sacral wound osteomylitis, no adverse reactions noted. Right femoral central Dressing is intact, no bleeding from femoral cental catheter site noted. On contact isolation for VRE of sacral wound and VRE of urine. Treatment done to sacral wound as ordered, turned and repositioned, kept clean and comfortable.
[2018-07-21] MEDS: METOCLOPRAMIDE HCL 10 MG/10 ML UDC GT SCH ×4 (00:31→17:29)
[2018-07-21] MEDS: IPRATROPIUM BROMIDE 0.5 MG/2.5 ML NEBU NEB SCH ×4 (01:01→19:18)
[2018-07-21] MEDS: ALBUTEROL SULFATE 2.5 MG/3 ML NEBU NEB SCH ×4 (01:01→19:18)
[2018-07-21 01:54] VITALS: BP 101/54
[2018-07-21 05:00] VITALS: BP 134/75
[2018-07-21] MEDS: FERROUS SULFATE 330 MG/7.5 ML UDC- FOR SA ONLY GT SCH ×3 (05:59→21:21)
[2018-07-21] MEDS: CHOLECALCIFEROL 1,000 UNIT TABLET GT SCH (06:00)
[2018-07-21] MEDS: POLYVINYL ALCOHOL OPHT DROPS 15 ML BOTTLE OP SCH ×3 (06:00→21:21)
[2018-07-21] MEDS: FAMOTIDINE 40 MG TABLET GT SCH (06:00)
[2018-07-21] MEDS: BLOOD SUGAR DIAGNOSTIC 1 EACH STRIP VI SCH (06:00)
[2018-07-21] MEDS: AMPICILLIN IV SCH ×6 (06:09→23:16)
[2018-07-21] MEDS: NS IV SCH ×6 (06:09→23:16)
--- NOTE | 2018-07-21 07:36 | NUR ---
PT RECEIVED ON THE HT-50 VENT WITH THE FOLLOWING SETTINGS THAT ARE CHARTED ON THE MECHANICAL VENTILATOR NOTES. TRACH TUBE IS PATENT AND SECURED WITH TRACH TIES. HME CHANGED. SUCTIONED SMALL AMOUNTS OF THIN WHITE/YELLOW SECRETIONS. VENT ALARMS CHECKED AND THEY ARE ON AND AUDIBLE. VENTILATOR IS PLUGGED IN THE RED OUTLET. BACK UP TRACH AND AMBU BAG IS BY BEDSIDE. PT IS TOLERATING CURRENT VENT SETTINGS WELL AT THIS TIME WITH NO SOB NOTED. WILL CONTINUE TO MONITOR PATIENT.
[2018-07-21] MEDS: NORMAL SALINE FLUSH 10 ML DISP.SYRIN IV SCH ×2 (09:00→21:00)
[2018-07-21] MEDS: VALPROIC ACID 250 MG/5 ML LIQUID UDC GT SCH ×2 (09:45→21:19)
[2018-07-21] MEDS: ASPIRIN 81 MG TAB.CHEW GT SCH (09:45)
[2018-07-21] MEDS: LOSARTAN POTASSIUM 50 MG TABLET GT SCH (09:45)
[2018-07-21] MEDS: ASCORBIC ACID 500 MG TABLET GT SCH ×2 (09:46→21:20)
[2018-07-21] MEDS: METOPROLOL TARTRATE 50 MG TABLET GT SCH ×2 (09:46→21:20)
[2018-07-21] MEDS: LEVETIRACETAM 500 MG/5 ML LIQUID UDC GT SCH ×2 (09:46→21:19)
[2018-07-21] MEDS: PROTEIN SUPPLEMENT (PROSTAT) 30 ML LIQUID GT SCH ×2 (09:46→17:29)
[2018-07-21] MEDS: Z GUARD REMEDY PASTE 57 GM TUBE TOP SCH ×2 (09:47→21:20)
[2018-07-21] MEDS: LACOSAMIDE 200 MG TABLET XX SCH ×2 (09:47→21:00)
[2018-07-21] MEDS: NEOMY/BACITRAC/POLYMI OINT 28.35 GM TUBE TP SCH ×2 (09:47→21:21)
[2018-07-21] MEDS: HYDROGEN PEROXIDE 3% 118 ML BOTTLE TP SCH ×2 (09:47→21:21)
[2018-07-21] MEDS: SODIUM HYPOCHLORITE 0.125% 473 ML BOTTLE TP SCH ×2 (09:47→21:20)
[2018-07-21] MEDS: ACETAMINOPHEN 325 MG TABLET-SA PATIENTS-PAIN ONLY PO SCH ×2 (09:47→21:20)
[2018-07-21 11:29] VITALS: BP 120/57
--- NOTE | 2018-07-21 19:20 | NUR ---
Pt received on HT-50 ventilator with the following settings of AC-12, Vt-500, PEEP+5, FIO2-2LPM bleed-in, trached with Shiley#6 DCT trach, which is in the place and secure. No s/s of respiratory distress noted. Airway care done, pt responded to physical stimuli. In-line HHN tx with 2.5mg Albuterol+0.5mg Atrovent given, no adverse reaction noted. HME changed. Resus. bag and back up trach at bedside. Vent and alarms checked and reset.
[2018-07-21 20:25] VITALS: BP 94/55
[2018-07-21] MEDS: RIVAROXABAN 15 MG TABLET PO SCH (21:00)
[2018-07-21] MEDS: ATORVASTATIN 10 MG TABLET GT SCH (21:19)
[2018-07-21] MEDS: MULTIVITAMINS,THERAPEUTIC TABLET GT SCH (21:20)
[2018-07-21] MEDS: ARGINAID GT SCH (21:20)
--- NOTE | 2018-07-22 | NUR ---
Afebrile, B/P : 113/46 HR: 88, Started on Albumin as ordered,no adverse reactions noted. On ampicillin for sacral wound osteomylitis, no adverse reactions noted. Right femoral central line is intact and patent, draining well to yellow urine. Will start Bumex as ordered, on contact isolation for VRE of the wound. kept patient clean and comfortable.
[2018-07-22] MEDS: METOCLOPRAMIDE HCL 10 MG/10 ML UDC GT SCH ×4 (00:55→17:32)
[2018-07-22] MEDS: ALBUTEROL SULFATE 2.5 MG/3 ML NEBU NEB SCH ×4 (00:58→19:08)
[2018-07-22] MEDS: IPRATROPIUM BROMIDE 0.5 MG/2.5 ML NEBU NEB SCH ×4 (00:58→19:08)
[2018-07-22 01:00] VITALS: BP 98/56
[2018-07-22] MEDS: FERROUS SULFATE 330 MG/7.5 ML UDC- FOR SA ONLY GT SCH ×3 (05:12→22:09)
[2018-07-22] MEDS: CHOLECALCIFEROL 1,000 UNIT TABLET GT SCH (05:12)
[2018-07-22] MEDS: FAMOTIDINE 40 MG TABLET GT SCH (05:58)
[2018-07-22] MEDS: POLYVINYL ALCOHOL OPHT DROPS 15 ML BOTTLE OP SCH ×3 (05:58→22:20)
[2018-07-22] MEDS: BLOOD SUGAR DIAGNOSTIC 1 EACH STRIP VI SCH (06:02)
[2018-07-22] MEDS: AMPICILLIN IV SCH ×3 (06:04→17:05)
[2018-07-22] MEDS: NS IV SCH ×3 (06:04→17:05)
--- NOTE | 2018-07-22 07:07 | NUR ---
Patient noted with swollen scrotum, and increasing bilateral hand edema, kept clean and dry and elevated with soft cloth. F/C intact and patent, draining clear yellow urine to urine bag. Continue to monitor.
[2018-07-22] MEDS: ASPIRIN 81 MG TAB.CHEW GT SCH (08:23)
[2018-07-22] MEDS: VALPROIC ACID 250 MG/5 ML LIQUID UDC GT SCH ×2 (08:26→21:00)
[2018-07-22] MEDS: LOSARTAN POTASSIUM 50 MG TABLET GT SCH (08:26)
[2018-07-22] MEDS: LEVETIRACETAM 500 MG/5 ML LIQUID UDC GT SCH ×2 (08:27→21:00)
[2018-07-22] MEDS: NEOMY/BACITRAC/POLYMI OINT 28.35 GM TUBE TP SCH ×2 (08:28→21:00)
[2018-07-22] MEDS: PROTEIN SUPPLEMENT (PROSTAT) 30 ML LIQUID GT SCH ×2 (08:28→17:32)
[2018-07-22] MEDS: METOPROLOL TARTRATE 50 MG TABLET GT SCH ×2 (08:28→21:00)
[2018-07-22] MEDS: ASCORBIC ACID 500 MG TABLET GT SCH ×2 (08:28→21:00)
[2018-07-22] MEDS: SODIUM HYPOCHLORITE 0.125% 473 ML BOTTLE TP SCH ×2 (08:28→21:00)
[2018-07-22] MEDS: Z GUARD REMEDY PASTE 57 GM TUBE TOP SCH ×2 (08:28→21:00)
[2018-07-22] MEDS: ACETAMINOPHEN 325 MG TABLET-SA PATIENTS-PAIN ONLY PO SCH ×2 (08:28→21:00)
[2018-07-22] MEDS: HYDROGEN PEROXIDE 3% 118 ML BOTTLE TP SCH ×2 (08:28→21:00)
[2018-07-22] MEDS: LACOSAMIDE 200 MG TABLET XX SCH ×2 (08:29→21:00)
[2018-07-22] MEDS: NORMAL SALINE FLUSH 10 ML DISP.SYRIN IV SCH ×2 (09:53→21:00)
[2018-07-22 11:49] VITALS: BP 111/58
--- NOTE | 2018-07-22 16:52 | NUR ---
SEEN BY CAL SANTOS AND WITH NEW ORDERS FOR GEN .EDEMA AND CARRIED OUT.
--- NOTE | 2018-07-22 16:53 | NUR ---
PT'S DTR. ADEL AWARE OF ORDERS AND IN AGREEMENT.
--- NOTE | 2018-07-22 17:09 | NUR ---
RESIDENT REMAIN ON CURRENT VENTILATOR SETTINGS OF AC 14 VT 500, PEEP 5 AND FIO2 BLED IN AT 2LPM IN LINE.TOLERATED IN LINE TX WELL. TRACH SHILEY # 6 IS SECURE AND CLEAN. VENT IS WORKING WELL WITH ALARMS ACTIVE. CHANGED HUMIDIFIER FILTER.
[2018-07-22] MEDS: GLUCERNA 1.2 1000ML LIQUID GT PRN (17:33)
--- NOTE | 2018-07-22 19:10 | NUR ---
Received pt on HT-50 ventilator with the following settings of AC-12, Vt-500, PEEP+5, FIO2-2LPM bleed-in, trached with Shiley#6 DCT trach, which is in the place and secure. No respiratory distress noted. Airway care done, pt responded to physical stimuli. In-line HHN tx with 2.5mg Albuterol+0.5mg Atrovent given, no adverse reaction noted. Resus. bag and back up trach at bedside. Vent and alarms checked and reset.
[2018-07-22 20:00] VITALS: BP 119/48
[2018-07-22 20:22] VITALS: BP 119/48
[2018-07-22] MEDS: RIVAROXABAN 15 MG TABLET PO SCH (21:00)
[2018-07-22] MEDS: ATORVASTATIN 10 MG TABLET GT SCH (21:00)
[2018-07-22] MEDS: MULTIVITAMINS,THERAPEUTIC TABLET GT SCH (21:00)
[2018-07-22] MEDS: ARGINAID GT SCH (21:00)
[2018-07-22] MEDS ORDERED: BUMETANIDE 1 MG/4 ML VIAL ONE ×3 (22:49→23:02)
[2018-07-22] MEDS ORDERED: ALBUMIN HUMAN 25% 100 ML ONE (22:49)
[2018-07-22] MEDS ORDERED: BUMETANIDE INJ 6 MG in IV DEXTROSE 5% 36 ML IV ONE (23:00)
--- NOTE | 2018-07-22 23:00 | NUR ---
Gave Bumex 6 mg @ 10 ml/Hr, tolerating well. Will give Albumin 25% (100ml) to run for 2 hours .
[2018-07-23] MEDS: AMPICILLIN IV SCH ×4 (00:03→17:21)
[2018-07-23] MEDS: NS IV SCH ×4 (00:03→17:21)
[2018-07-23] MEDS: METOCLOPRAMIDE HCL 10 MG/10 ML UDC GT SCH ×4 (00:18→18:02)
[2018-07-23] MEDS: ALBUTEROL SULFATE 2.5 MG/3 ML NEBU NEB SCH ×4 (00:58→19:42)
[2018-07-23] MEDS: IPRATROPIUM BROMIDE 0.5 MG/2.5 ML NEBU NEB SCH ×4 (00:58→19:42)
[2018-07-23 02:00] VITALS: BP 113/49
[2018-07-23] MEDS ORDERED: ALBUMIN HUMAN 25% 100 ML IV ONE (05:00)
[2018-07-23] MEDS: BLOOD SUGAR DIAGNOSTIC 1 EACH STRIP VI SCH (05:34)
[2018-07-23] MEDS: FERROUS SULFATE 330 MG/7.5 ML UDC- FOR SA ONLY GT SCH ×3 (05:34→22:00)
[2018-07-23] MEDS: FAMOTIDINE 40 MG TABLET GT SCH (05:34)
[2018-07-23] MEDS: CHOLECALCIFEROL 1,000 UNIT TABLET GT SCH (05:34)
[2018-07-23] MEDS: POLYVINYL ALCOHOL OPHT DROPS 15 ML BOTTLE OP SCH ×3 (05:34→22:00)
[2018-07-23 06:03] VITALS: BP 106/59
--- NOTE | 2018-07-23 07:10 | NUR ---
Patient was able to tolerate Bumex and Albumin IVPB given as ordered and patient tolerated procedure well. Noted with 4600 ml clear yellow urine output, no signs of any distress noted. Kept patient clean and comfortable.
[2018-07-23 08:00] VITALS: BP 99/50
[2018-07-23] MEDS: ASPIRIN 81 MG TAB.CHEW GT SCH (08:43)
[2018-07-23] MEDS: VALPROIC ACID 250 MG/5 ML LIQUID UDC GT SCH ×2 (08:44→20:12)
[2018-07-23] MEDS: LOSARTAN POTASSIUM 50 MG TABLET GT SCH (08:44)
[2018-07-23] MEDS: LEVETIRACETAM 500 MG/5 ML LIQUID UDC GT SCH ×2 (08:45→20:13)
[2018-07-23] MEDS: METOPROLOL TARTRATE 50 MG TABLET GT SCH ×2 (08:46→20:15)
[2018-07-23] MEDS: PROTEIN SUPPLEMENT (PROSTAT) 30 ML LIQUID GT SCH ×2 (08:47→18:00)
[2018-07-23] MEDS: ASCORBIC ACID 500 MG TABLET GT SCH ×2 (08:47→20:16)
[2018-07-23] MEDS: NEOMY/BACITRAC/POLYMI OINT 28.35 GM TUBE TP SCH ×2 (08:48→20:19)
[2018-07-23] MEDS: SODIUM HYPOCHLORITE 0.125% 473 ML BOTTLE TP SCH (08:48)
[2018-07-23] MEDS: HYDROGEN PEROXIDE 3% 118 ML BOTTLE TP SCH ×2 (08:48→21:00)
[2018-07-23] MEDS: ACETAMINOPHEN 325 MG TABLET-SA PATIENTS-PAIN ONLY PO SCH ×2 (08:48→20:17)
[2018-07-23] MEDS: LACOSAMIDE 200 MG TABLET XX SCH ×2 (08:48→20:19)
[2018-07-23] MEDS: Z GUARD REMEDY PASTE 57 GM TUBE TOP SCH ×2 (08:48→21:00)
[2018-07-23] MEDS: NORMAL SALINE FLUSH 10 ML DISP.SYRIN IV SCH ×2 (09:00→20:45)
--- NOTE | 2018-07-23 14:46 | NUR ---
VS: Temp 98 BP 113/54 HR 112 LABS: (from 06/18/18) Wbc 5.4 H/H 8.7/26.3 Plt 165 Na 140 K 4.2 Cl 102 CO2 31 BUN/Scr 20/0.4 BS 123 Ca 8.7 MEDICATION USE REVIEWED: > Pt not on any anti-psych medications > Pt on Keppra 1500mg q12h since admit on 05/20/18, last calculated CrCl >130 ml/min, dose ok per renal fxn. > Pt on Vimpat 200mg q12h since admit 05/20/18, no seizures reported > Pt on Valproic acid 1000mg q12h since admit 05/20/18, no seizures at this time, Rx rec for baseline level, ordered 05/29/18 resulted 54 (50-100) within therapeutic range. No reported seizures > Pt on Cozaar 50mg daily since 05/20/18, Lopressor 50mg q12hr (increased from 25mg q12h on 05/21), and hydralazine 10mg PRN SBP >160. Hold parameters in effect. > Pt on famotidine 40mg daily for GI prophylaxis, ok per renal function. Remains on reglan 5mg q6h for continued gastroparesis maintenance treatment > Pt on xarelto 15mg daily since 06/03/18 for bilateral upper extremity DVT, last plt 165, ok. PRN MED USAGE: (June) Tylenol for pain/temp x5 Hydralazine used x5 NEW ORDERS NOTED: > Tylenol 650mg qshift before wound care added 06/16 > vitamin C increased from 500mg daily to q12h, zinc d/c'd 06/14 > Rocephin/zyvox ordered, rx rec for change to amicillin IV 1gm q6hr instead per wound cx on 06/21 > Seffner PRN added > ampicillin for sacral wound osteomyelitis > dose of 6mg dumex and 25% 100ml albumin used. Patient was reviewed and discussed at IDT with family in attendance. All updates and reports given including notes of pt's hands and scrotum swollen, looking edematous. No further concerns per family, no further rx recs for now. Will continue to follow Addendum: 07/23/18 at 1453 by CHAR VOSS ADM Title cut off, should be entitled "Pharmacy Update from today's 07/23/18 IDT Meeting
--- NOTE | 2018-07-23 15:39 | NUR ---
INTERDISCIPLINARY PLAN OF CARE CONFERENCE was held today. Patient's and daughter were present at the meeting. Dr. Beltrán and the Interdisciplinary Team reviewed the current plan of care in detail. RN reported on patient's current medical condition and discussed the reason for patient's recent acute hospitalization on 07/17--07/18. See RN IDT conference notes. See also all other disciplines IDT notes and physician's progress notes for additional details. Patient's 's and daughter's questions were addressed by the IDT team and by Dr. Beltrán, and they expressed understanding and agreement with the current plan of care.
--- NOTE | 2018-07-23 19:06 | NUR ---
SEEN BY DR. ARREDONDO AND NEW ORDERS CARRIED OUT.
[2018-07-23] MEDS: ATORVASTATIN 10 MG TABLET GT SCH (20:14)
[2018-07-23] MEDS: ARGINAID GT SCH (20:16)
[2018-07-23] MEDS: MULTIVITAMINS,THERAPEUTIC TABLET GT SCH (20:16)
[2018-07-23] MEDS: RIVAROXABAN 15 MG TABLET PO SCH (21:00)
[2018-07-23 22:02] VITALS: BP 115/60
--- NOTE | 2018-07-24 00:08 | NUR ---
PT ON CONT HT 50 VENT WITH SHILEY # [address] AND SECURED, WITH SAME CURRENT VENT SETTINGS, PT DOES ASSIST AT TIMES, FAIR COUGH EFFORT, SUCTIONED LIGHT PALE YELL TINGE SECRETIONS, AND SUCTION MOUTH WITH SHERIN NGUYEN, NEB INLINE WITH ALBUTEROL/ ATROVENT SHERIN TUCKER, ALL VENT ALARMS GOOD, NO VENT CHANGES MADE AT THIS TIME; CHECK CUFF, CHANGE HME; AMBU BAG AT BEDSIDE, PT STABLE.Emily STRAUSSP Addendum: 07/24/18 at 0011 by PAIGE HOWELL RT Amended: Links added.
[2018-07-24] MEDS: METOCLOPRAMIDE HCL 10 MG/10 ML UDC GT SCH ×4 (00:26→17:15)
[2018-07-24] MEDS: IPRATROPIUM BROMIDE 0.5 MG/2.5 ML NEBU NEB SCH ×4 (01:57→19:27)
[2018-07-24] MEDS: ALBUTEROL SULFATE 2.5 MG/3 ML NEBU NEB SCH ×4 (01:57→19:27)
[2018-07-24] MEDS: GLUCERNA 1.2 1000ML LIQUID GT PRN (05:00)
[2018-07-24] MEDS: FERROUS SULFATE 330 MG/7.5 ML UDC- FOR SA ONLY GT SCH ×3 (05:38→22:34)
[2018-07-24] MEDS: CHOLECALCIFEROL 1,000 UNIT TABLET GT SCH (05:39)
[2018-07-24] MEDS: POLYVINYL ALCOHOL OPHT DROPS 15 ML BOTTLE OP SCH ×3 (05:39→22:34)
[2018-07-24] MEDS: FAMOTIDINE 40 MG TABLET GT SCH (05:40)
[2018-07-24] MEDS: BLOOD SUGAR DIAGNOSTIC 1 EACH STRIP VI SCH (05:40)
[2018-07-24] MEDS: AMPICILLIN IV SCH ×5 (06:00→17:58)
[2018-07-24] MEDS: NS IV SCH ×5 (06:00→17:58)
[2018-07-24] MEDS: VALPROIC ACID 250 MG/5 ML LIQUID UDC GT SCH ×2 (08:25→20:05)
[2018-07-24] MEDS: METOPROLOL TARTRATE 50 MG TABLET GT SCH ×2 (08:25→20:12)
[2018-07-24] MEDS: ASCORBIC ACID 500 MG TABLET GT SCH ×2 (08:25→20:16)
[2018-07-24] MEDS: ASPIRIN 81 MG TAB.CHEW GT SCH (08:25)
[2018-07-24] MEDS: ACETAMINOPHEN 325 MG TABLET-SA PATIENTS-PAIN ONLY PO SCH ×2 (08:25→21:00)
[2018-07-24] MEDS: LEVETIRACETAM 500 MG/5 ML LIQUID UDC GT SCH ×2 (08:25→20:06)
[2018-07-24] MEDS: LOSARTAN POTASSIUM 50 MG TABLET GT SCH (08:25)
[2018-07-24] MEDS: PROTEIN SUPPLEMENT (PROSTAT) 30 ML LIQUID GT SCH ×2 (08:25→17:15)
[2018-07-24] MEDS: NEOMY/BACITRAC/POLYMI OINT 28.35 GM TUBE TP SCH ×2 (08:26→20:08)
[2018-07-24] MEDS: HYDROGEN PEROXIDE 3% 118 ML BOTTLE TP SCH ×2 (08:26→20:08)
[2018-07-24] MEDS: SODIUM HYPOCHLORITE 0.125% 473 ML BOTTLE TP SCH ×3 (08:36→17:15)
[2018-07-24] MEDS: NORMAL SALINE FLUSH 10 ML DISP.SYRIN IV SCH ×2 (09:00→21:00)
[2018-07-24] MEDS: LACOSAMIDE 200 MG TABLET XX SCH ×2 (09:03→20:09)
[2018-07-24 11:21] VITALS: BP 126/64
--- NOTE | 2018-07-24 18:00 | NUR ---
continue on ivatb,no adverse reaction noted,r femoral central line intact,no s/s of infection noted.
[2018-07-24 20:00] VITALS: BP 110/51
[2018-07-24] MEDS: ATORVASTATIN 10 MG TABLET GT SCH (20:06)
[2018-07-24] MEDS: ARGINAID GT SCH (20:15)
[2018-07-24] MEDS: MULTIVITAMINS,THERAPEUTIC TABLET GT SCH (20:15)
[2018-07-24] MEDS: RIVAROXABAN 15 MG TABLET PO SCH (20:17)
--- NOTE | 2018-07-24 20:28 | NUR ---
Pt rec'd on HT-50 settings AC 12, VT 500, PEEP +5 and 2 LPM bleed in O2. No resp. distress noted. Shiley [address], patent and secure. Pt to be monitored throughout the shift, PRN SX and adm'd resp neb txs per MD orders. HT-50 alarm parameters have been checked and remain audible.
[2018-07-25] MEDS: AMPICILLIN IV SCH ×4 (00:13→17:38)
[2018-07-25] MEDS: NS IV SCH ×4 (00:13→17:38)
[2018-07-25] MEDS: ALBUTEROL SULFATE 2.5 MG/3 ML NEBU NEB SCH ×4 (00:47→19:08)
[2018-07-25] MEDS: IPRATROPIUM BROMIDE 0.5 MG/2.5 ML NEBU NEB SCH ×4 (00:47→19:08)
[2018-07-25] MEDS: GLUCERNA 1.2 1000ML LIQUID GT PRN (01:45)
[2018-07-25] MEDS: METOCLOPRAMIDE HCL 10 MG/10 ML UDC GT SCH ×4 (06:02→17:07)
[2018-07-25] MEDS: POLYVINYL ALCOHOL OPHT DROPS 15 ML BOTTLE OP SCH ×3 (06:02→22:42)
[2018-07-25] MEDS: CHOLECALCIFEROL 1,000 UNIT TABLET GT SCH (06:02)
[2018-07-25] MEDS: FAMOTIDINE 40 MG TABLET GT SCH (06:02)
[2018-07-25] MEDS: BLOOD SUGAR DIAGNOSTIC 1 EACH STRIP VI SCH (06:02)
[2018-07-25] MEDS: FERROUS SULFATE 330 MG/7.5 ML UDC- FOR SA ONLY GT SCH ×3 (06:02→22:42)
--- NOTE | 2018-07-25 07:10 | NUR ---
Pt received in semi tellez position, obtunded, unable to communicate, and on CMV via Shiley 6 DCT trach. Pt is on [place] HT-50 ventilator with ordered settings of A/C-12, VT-500, PEEP+5, FIO2-28% 2LPM Bleed-in oxygen. Tolerating vent settings well. SpO2-99% Trach is patent and secured. Minimal occluding volume technique used to assess cuff inflation. In-line nebulizer treatments given as ordered, Q6 with Albuterol/Atrovent. Treatments tolerated well, no adverse reactions noted. Sxn'd and lavaged as needed. Suctioned small amounts of thick white secretions. HME changed. PPE used. No signs or symptoms of respiratory distress. Ventilator alarm parameters checked, on and audible. Vent plugged into red emergency outlet. Bag/valve/mask and backup trach at bedside. Will continue to monitor.
[2018-07-25] MEDS: NEOMY/BACITRA/POLYMYXIN B OINT UD PACKET TP SCH ×2 (09:00→20:10)
[2018-07-25] MEDS: NORMAL SALINE FLUSH 10 ML DISP.SYRIN IV SCH ×2 (09:00→21:00)
[2018-07-25] MEDS: LEVETIRACETAM 500 MG/5 ML LIQUID UDC GT SCH ×2 (09:00→20:03)
[2018-07-25] MEDS: METOPROLOL TARTRATE 50 MG TABLET GT SCH ×2 (09:00→20:30)
[2018-07-25] MEDS: NEOMY/BACITRAC/POLYMI OINT 28.35 GM TUBE TP SCH (09:00)
[2018-07-25] MEDS: ASPIRIN 81 MG TAB.CHEW GT SCH (09:00)
[2018-07-25] MEDS: SODIUM HYPOCHLORITE 0.125% 473 ML BOTTLE TP SCH ×3 (09:00→16:42)
[2018-07-25] MEDS: VALPROIC ACID 250 MG/5 ML LIQUID UDC GT SCH ×2 (09:00→20:03)
[2018-07-25] MEDS: PROTEIN SUPPLEMENT (PROSTAT) 30 ML LIQUID GT SCH ×2 (09:00→16:42)
[2018-07-25] MEDS: LOSARTAN POTASSIUM 50 MG TABLET GT SCH (09:00)
[2018-07-25] MEDS: HYDROGEN PEROXIDE 3% 118 ML BOTTLE TP SCH ×2 (09:00→20:10)
[2018-07-25] MEDS: ASCORBIC ACID 500 MG TABLET GT SCH ×2 (09:00→20:07)
[2018-07-25] MEDS: LACOSAMIDE 200 MG TABLET XX SCH ×2 (09:00→20:10)
[2018-07-25] MEDS: ACETAMINOPHEN 325 MG TABLET-SA PATIENTS-PAIN ONLY PO SCH ×2 (09:00→20:31)
[2018-07-25 10:49] VITALS: BP 103/61
--- NOTE | 2018-07-25 19:10 | NUR ---
Received pt on HT-50 ventilator with the following settings of AC-12, Vt-500, PEEP+5, FIO2-2LPM bleed-in, trached with Shiley#6 DCT trach, which is in the place and secure. No sob noted. Airway care done, pt responded to physical stimuli. In-line HHN tx with 2.5mg Albuterol+0.5mg Atrovent given, no adverse reaction noted. HME changed. Resus. bag and back up trach at bedside. Vent and alarms checked and reset.
[2018-07-25 20:00] VITALS: BP 109/53
--- NOTE | 2018-07-25 20:00 | NUR ---
Temperature : 100, warm , cooling measures given, currently on ampicillin IV for VRE / sacral wound osteomylitis, no signs of any respiratory distress noted, kept clean and comfortable. will continue monitor.
[2018-07-25] MEDS: ATORVASTATIN 10 MG TABLET GT SCH (20:03)
[2018-07-25] MEDS: MULTIVITAMINS,THERAPEUTIC TABLET GT SCH (20:07)
[2018-07-25] MEDS: RIVAROXABAN 15 MG TABLET PO SCH (20:10)
[2018-07-25] MEDS: ARGINAID GT SCH (20:30)
[2018-07-25 22:00] VITALS: BP 100/52
--- NOTE | 2018-07-25 22:00 | NUR ---
Remains on Ampicillin IVPB for Sacral wound osteomylitis, no adverse reactions noted. Afebrile, Right femoral central line is intact, no bleeding noted from site. On contact isolation precaution for VRE of sacral wound. Treatment done to sacral wound as ordered, cordova catheter is draining well to yellow urine, good daniel care rendered, kept patient clean and comfortable.
[2018-07-26] MEDS: METOCLOPRAMIDE HCL 10 MG/10 ML UDC GT SCH ×5 (00:19→23:41)
[2018-07-26] MEDS: GLUCERNA 1.2 1000ML LIQUID GT PRN (01:30)
[2018-07-26] MEDS: ALBUTEROL SULFATE 2.5 MG/3 ML NEBU NEB SCH ×4 (01:58→19:34)
[2018-07-26] MEDS: IPRATROPIUM BROMIDE 0.5 MG/2.5 ML NEBU NEB SCH ×4 (01:58→19:34)
[2018-07-26 04:00] VITALS: BP 98/53
[2018-07-26] MEDS: FERROUS SULFATE 330 MG/7.5 ML UDC- FOR SA ONLY GT SCH ×3 (06:20→21:19)
[2018-07-26] MEDS: BLOOD SUGAR DIAGNOSTIC 1 EACH STRIP VI SCH (06:20)
[2018-07-26] MEDS: CHOLECALCIFEROL 1,000 UNIT TABLET GT SCH (06:20)
[2018-07-26] MEDS: POLYVINYL ALCOHOL OPHT DROPS 15 ML BOTTLE OP SCH ×3 (06:20→21:19)
[2018-07-26] MEDS: FAMOTIDINE 40 MG TABLET GT SCH (06:20)
[2018-07-26] MEDS: AMPICILLIN IV SCH ×5 (06:39→17:07)
[2018-07-26] MEDS: NS IV SCH ×5 (06:39→17:07)
--- NOTE | 2018-07-26 07:05 | NUR ---
Temperature at this time is 99.0, no respiratory distress noted, fluids given as ordered, kept clean and comfortable.
[2018-07-26] MEDS: NORMAL SALINE FLUSH 10 ML DISP.SYRIN IV SCH ×2 (09:00→20:48)
[2018-07-26] MEDS: LEVETIRACETAM 500 MG/5 ML LIQUID UDC GT SCH ×2 (09:00→20:48)
[2018-07-26] MEDS: ASPIRIN 81 MG TAB.CHEW GT SCH (09:00)
[2018-07-26] MEDS: HYDROGEN PEROXIDE 3% 118 ML BOTTLE TP SCH ×2 (09:00→20:51)
[2018-07-26] MEDS: VALPROIC ACID 250 MG/5 ML LIQUID UDC GT SCH ×2 (09:00→20:47)
[2018-07-26] MEDS: LACOSAMIDE 200 MG TABLET XX SCH ×2 (09:00→20:51)
[2018-07-26] MEDS: METOPROLOL TARTRATE 50 MG TABLET GT SCH ×2 (09:00→20:48)
[2018-07-26] MEDS: ASCORBIC ACID 500 MG TABLET GT SCH ×2 (09:00→20:48)
[2018-07-26] MEDS: NEOMY/BACITRA/POLYMYXIN B OINT UD PACKET TP SCH ×3 (09:00→20:51)
[2018-07-26] MEDS: SODIUM HYPOCHLORITE 0.125% 473 ML BOTTLE TP SCH ×3 (09:00→17:40)
[2018-07-26] MEDS: ACETAMINOPHEN 325 MG TABLET-SA PATIENTS-PAIN ONLY PO SCH ×2 (09:00→20:49)
[2018-07-26] MEDS: LOSARTAN POTASSIUM 50 MG TABLET GT SCH (09:00)
[2018-07-26] MEDS: PROTEIN SUPPLEMENT (PROSTAT) 30 ML LIQUID GT SCH ×2 (09:00→17:40)
--- NOTE | 2018-07-26 13:21 | NUR ---
PT REC'D ON HT-50 VENT AC 12 VT 500 PEEP+5 2LPM O2 BLEED-IN. SHILEY6 CUFFED TRACH IN PLACED AND SECURED WITH TRACH TIE. BACK UP TRACH AND AMBU BAG AT BEDSIDE. IN LINE NEB TX'S GIVEN ORDERED. SUCTION/LAVAGE PRN. VENT ALARMS AUDIBLE CHECKED AND RESET. NO SIGNS OF RESPIRATORY DISTRESS NOTED AT THIS TIME. WILL CONTINUE TO MONITOR.
[2018-07-26 13:43] VITALS: BP 139/73
[2018-07-26 20:00] VITALS: BP 113/59
[2018-07-26] MEDS: ARGINAID GT SCH (20:48)
[2018-07-26] MEDS: ATORVASTATIN 10 MG TABLET GT SCH (20:48)
[2018-07-26] MEDS: MULTIVITAMINS,THERAPEUTIC TABLET GT SCH (20:48)
[2018-07-26] MEDS: RIVAROXABAN 15 MG TABLET PO SCH (20:51)
--- NOTE | 2018-07-26 23:25 | NUR ---
Afebrile, still on Ampicillin IVPB for Sacral wound osteomylitis, no adverse reactions noted. Right femoral central line is intact, no bleeding noted from site. On contact isolation precaution for VRE of sacral wound. Treatment done to sacral wound as ordered, cordova catheter is draining well to yellow urine, good daniel care rendered, kept patient clean and comfortable.
--- NOTE | 2018-07-27 00:17 | NUR ---
PT ON CONT HT 50 VENT WITH SHILEY # [address] AND SECURED, WITH SAME CURRENT VENT SETTINGS, PT DOES ASSIST AT TIMES, GOOD COUGH EFFORT, SUCTIONED LIGHT PALE YELL TINGE SECRETIONS, ALL VENT ALARMS GOOD, NO VENT CHANGES MADE AT THIS TIME, CHANGE HME AND CHECK CUFF, PT STABLE, AMBU BAG AT BEDSIDE.Emily STRAUSSP Addendum: 07/27/18 at 0018 by PAIGE HOWELL RT Amended: Links added.
[2018-07-27] MEDS: IPRATROPIUM BROMIDE 0.5 MG/2.5 ML NEBU NEB SCH ×4 (02:00→19:08)
[2018-07-27] MEDS: ALBUTEROL SULFATE 2.5 MG/3 ML NEBU NEB SCH ×4 (02:00→19:08)
[2018-07-27] MEDS: FAMOTIDINE 40 MG TABLET GT SCH (05:38)
[2018-07-27] MEDS: POLYVINYL ALCOHOL OPHT DROPS 15 ML BOTTLE OP SCH ×3 (05:38→22:04)
[2018-07-27] MEDS: METOCLOPRAMIDE HCL 10 MG/10 ML UDC GT SCH ×3 (05:38→17:08)
[2018-07-27] MEDS: FERROUS SULFATE 330 MG/7.5 ML UDC- FOR SA ONLY GT SCH ×3 (05:38→22:03)
[2018-07-27] MEDS: CHOLECALCIFEROL 1,000 UNIT TABLET GT SCH (05:38)
[2018-07-27] MEDS: BLOOD SUGAR DIAGNOSTIC 1 EACH STRIP VI SCH (05:41)
[2018-07-27] MEDS: NS IV SCH ×5 (06:03→17:15)
[2018-07-27] MEDS: AMPICILLIN IV SCH ×5 (06:03→17:15)
[2018-07-27 07:58] VITALS: BP 109/47
[2018-07-27] MEDS: NORMAL SALINE FLUSH 10 ML DISP.SYRIN IV SCH ×2 (09:00→21:00)
[2018-07-27] MEDS: LOSARTAN POTASSIUM 50 MG TABLET GT SCH (09:00)
[2018-07-27] MEDS: ASPIRIN 81 MG TAB.CHEW GT SCH (09:09)
[2018-07-27] MEDS: LEVETIRACETAM 500 MG/5 ML LIQUID UDC GT SCH ×2 (09:09→21:00)
[2018-07-27] MEDS: VALPROIC ACID 250 MG/5 ML LIQUID UDC GT SCH ×2 (09:09→21:00)
[2018-07-27] MEDS: PROTEIN SUPPLEMENT (PROSTAT) 30 ML LIQUID GT SCH ×2 (09:10→16:30)
[2018-07-27] MEDS: ACETAMINOPHEN 325 MG TABLET-SA PATIENTS-PAIN ONLY PO SCH ×3 (09:10→22:00)
[2018-07-27] MEDS: NEOMY/BACITRA/POLYMYXIN B OINT UD PACKET TP SCH ×4 (09:10→21:00)
[2018-07-27] MEDS: SODIUM HYPOCHLORITE 0.125% 473 ML BOTTLE TP SCH ×3 (09:10→16:30)
[2018-07-27] MEDS: ASCORBIC ACID 500 MG TABLET GT SCH ×2 (09:10→21:00)
[2018-07-27] MEDS: HYDROGEN PEROXIDE 3% 118 ML BOTTLE TP SCH ×2 (09:10→21:00)
[2018-07-27] MEDS: METOPROLOL TARTRATE 50 MG TABLET GT SCH ×2 (09:10→21:00)
[2018-07-27] MEDS: LACOSAMIDE 200 MG TABLET XX SCH ×2 (09:13→21:00)
--- NOTE | 2018-07-27 19:10 | NUR ---
Received pt on HT-50 ventilator with the following settings of AC-12, Vt-500, PEEP+5, FIO2-2LPM bleed-in, trached with Shiley#6 DCT trach, which is in the place and secure. No s/s of respiratory distress noted. Airway care done, pt responded to physical stimuli. In-line HHN tx with 2.5mg Albuterol+0.5mg Atrovent given, pt tolerated well. HME, Sx Dorsey and HHN adaptor changed. Resus. bag and back up trach at bedside. Vent and alarms checked and reset.
[2018-07-27 20:33] VITALS: BP 119/53
[2018-07-27] MEDS: MULTIVITAMINS,THERAPEUTIC TABLET GT SCH (21:00)
[2018-07-27] MEDS: RIVAROXABAN 15 MG TABLET PO SCH (21:00)
[2018-07-27] MEDS: ARGINAID GT SCH (21:00)
[2018-07-27] MEDS: ATORVASTATIN 10 MG TABLET GT SCH (21:00)
--- NOTE | 2018-07-27 22:54 | NUR ---
Still on Ampicillin IV for Sacral wound osteomylitis, no adverse reactions noted. patient is afebrile, Right femoral central line is intact, no bleeding noted from site. On contact isolation precaution for VRE of sacral wound. Treatment done to sacral wound as ordered, cordova catheter is draining well to yellow urine, good daniel care rendered, kept patient clean and comfortable.
[2018-07-28] MEDS: METOCLOPRAMIDE HCL 10 MG/10 ML UDC GT SCH ×4 (00:32→17:01)
[2018-07-28] MEDS: IPRATROPIUM BROMIDE 0.5 MG/2.5 ML NEBU NEB SCH ×4 (00:58→20:01)
[2018-07-28] MEDS: ALBUTEROL SULFATE 2.5 MG/3 ML NEBU NEB SCH ×4 (00:58→20:01)
[2018-07-28] MEDS: GLUCERNA 1.2 1000ML LIQUID GT PRN ×2 (01:28→23:27)
[2018-07-28] MEDS: CHOLECALCIFEROL 1,000 UNIT TABLET GT SCH (05:32)
[2018-07-28] MEDS: FERROUS SULFATE 330 MG/7.5 ML UDC- FOR SA ONLY GT SCH ×3 (05:32→22:15)
[2018-07-28] MEDS: POLYVINYL ALCOHOL OPHT DROPS 15 ML BOTTLE OP SCH ×3 (05:40→22:15)
[2018-07-28] MEDS: BLOOD SUGAR DIAGNOSTIC 1 EACH STRIP VI SCH (05:40)
[2018-07-28] MEDS: FAMOTIDINE 40 MG TABLET GT SCH (05:40)
[2018-07-28] MEDS: NS IV SCH ×5 (06:04→18:01)
[2018-07-28] MEDS: AMPICILLIN IV SCH ×5 (06:04→18:01)
[2018-07-28 08:04] VITALS: BP 132/65
[2018-07-28] MEDS: LOSARTAN POTASSIUM 50 MG TABLET GT SCH (08:32)
[2018-07-28] MEDS: LEVETIRACETAM 500 MG/5 ML LIQUID UDC GT SCH ×2 (08:32→21:00)
[2018-07-28] MEDS: VALPROIC ACID 250 MG/5 ML LIQUID UDC GT SCH ×2 (08:32→21:00)
[2018-07-28] MEDS: ASPIRIN 81 MG TAB.CHEW GT SCH (08:32)
[2018-07-28] MEDS: METOPROLOL TARTRATE 50 MG TABLET GT SCH ×2 (08:33→21:00)
[2018-07-28] MEDS: NEOMY/BACITRA/POLYMYXIN B OINT UD PACKET TP SCH ×4 (08:33→21:00)
[2018-07-28] MEDS: LACOSAMIDE 200 MG TABLET XX SCH ×2 (08:33→21:00)
[2018-07-28] MEDS: SODIUM HYPOCHLORITE 0.125% 473 ML BOTTLE TP SCH ×3 (08:33→17:01)
[2018-07-28] MEDS: ASCORBIC ACID 500 MG TABLET GT SCH ×2 (08:33→21:00)
[2018-07-28] MEDS: PROTEIN SUPPLEMENT (PROSTAT) 30 ML LIQUID GT SCH ×2 (08:33→17:01)
[2018-07-28] MEDS: HYDROGEN PEROXIDE 3% 118 ML BOTTLE TP SCH ×2 (08:33→21:00)
[2018-07-28] MEDS: NORMAL SALINE FLUSH 10 ML DISP.SYRIN IV SCH ×2 (09:00→21:00)
--- NOTE | 2018-07-28 17:13 | NUR ---
PT ON HT-50 VENT, SETTINGS ARE AC 12, Vt-500, +5, 2 LPM BLEED IN. SHILEY 6 TRACH IS PATENT AND SECURED WITH TIES, SITE IS CLEAN AND DRY. NO SOB NOTED, DOING WELL ON CURRENT VENT SETTINGS. TXS TOLERATED WELL. SUCTIONED SMALL AMOUNTS OF PALE YELLOW THICK SECRETIONS. BVM AND BACK UP TRACH AT BEDSIDE. WILL CONTINUE TO MONITOR.
--- NOTE | 2018-07-28 18:58 | NUR ---
CONTINUE ON IVATB,FOR SACRAL WOUND OSTEOMIELITIS,NO ADVERSE REACTION NOTED.R FEMORAL TRIPLE LUMEN INTACT,NO S/S OF INFECTION NOTED.
[2018-07-28 20:51] VITALS: BP 114/55
[2018-07-28] MEDS: ATORVASTATIN 10 MG TABLET GT SCH (21:00)
[2018-07-28] MEDS: MULTIVITAMINS,THERAPEUTIC TABLET GT SCH (21:00)
[2018-07-28] MEDS: ACETAMINOPHEN 325 MG TABLET-SA PATIENTS-PAIN ONLY PO SCH (21:00)
[2018-07-28] MEDS: RIVAROXABAN 15 MG TABLET PO SCH (21:00)
[2018-07-28] MEDS: ARGINAID GT SCH (21:00)
[2018-07-28 22:18] VITALS: BP 127/72
--- NOTE | 2018-07-28 23:08 | NUR ---
PT ON CONT HT 50 VENT WITH SHILEY TRACH IN PLACE AND SECURED, WITH SAME CURRENT VENT SETTINGS, PT DOES ASSIST AT TIMES, GOOD COUGH EFFORT, SUCTIONED LIGHT PALE YELL TINGE SECRETIONS, CHANGE HME, ALL VENT ALARMS GOOD, NO VENT CHANGES MADE AT THIS TIME, PT STABLE, CHECK CUFF. Emily HOWELL RISK MANAGER Addendum: 07/28/18 at 2310 by PAIGE HOWELL RT Amended: Links added.
--- NOTE | 2018-07-28 23:11 | NUR ---
Remains on Ampicillin IV for Sacral wound osteomylitis, no adverse reactions noted. patient is afebrile, Right femoral central line is intact, no bleeding noted from site. On contact isolation precaution for VRE of sacral wound. Treatment done to sacral wound as ordered, codrova catheter is draining well to yellow urine, good daniel care rendered, kept patient clean and comfortable.
[2018-07-29] MEDS: METOCLOPRAMIDE HCL 10 MG/10 ML UDC GT SCH ×4 (00:53→18:02)
[2018-07-29] MEDS: IPRATROPIUM BROMIDE 0.5 MG/2.5 ML NEBU NEB SCH ×4 (01:05→19:30)
[2018-07-29] MEDS: ALBUTEROL SULFATE 2.5 MG/3 ML NEBU NEB SCH ×4 (01:05→19:31)
[2018-07-29] MEDS: CHOLECALCIFEROL 1,000 UNIT TABLET GT SCH (05:27)
[2018-07-29] MEDS: FERROUS SULFATE 330 MG/7.5 ML UDC- FOR SA ONLY GT SCH ×3 (05:27→22:32)
[2018-07-29] MEDS: HYDROCODONE/APAP 5-325MG TABLET GT PRN (05:29)
[2018-07-29] MEDS: POLYVINYL ALCOHOL OPHT DROPS 15 ML BOTTLE OP SCH ×3 (05:32→22:32)
[2018-07-29] MEDS: BLOOD SUGAR DIAGNOSTIC 1 EACH STRIP VI SCH (05:32)
[2018-07-29] MEDS: FAMOTIDINE 40 MG TABLET GT SCH (05:32)
[2018-07-29] MEDS: NS IV SCH ×5 (06:08→18:24)
[2018-07-29] MEDS: AMPICILLIN IV SCH ×5 (06:08→18:24)
[2018-07-29 08:05] VITALS: BP 115/58
[2018-07-29] MEDS: LOSARTAN POTASSIUM 50 MG TABLET GT SCH (08:21)
[2018-07-29] MEDS: ASPIRIN 81 MG TAB.CHEW GT SCH (08:21)
[2018-07-29] MEDS: LEVETIRACETAM 500 MG/5 ML LIQUID UDC GT SCH ×2 (08:21→21:00)
[2018-07-29] MEDS: PROTEIN SUPPLEMENT (PROSTAT) 30 ML LIQUID GT SCH ×2 (08:21→17:00)
[2018-07-29] MEDS: VALPROIC ACID 250 MG/5 ML LIQUID UDC GT SCH ×2 (08:21→21:00)
[2018-07-29] MEDS: SODIUM HYPOCHLORITE 0.125% 473 ML BOTTLE TP SCH ×3 (08:22→17:00)
[2018-07-29] MEDS: ACETAMINOPHEN 325 MG TABLET-SA PATIENTS-PAIN ONLY PO SCH ×2 (08:22→21:00)
[2018-07-29] MEDS: ASCORBIC ACID 500 MG TABLET GT SCH ×2 (08:22→21:00)
[2018-07-29] MEDS: HYDROGEN PEROXIDE 3% 118 ML BOTTLE TP SCH ×2 (08:22→21:00)
[2018-07-29] MEDS: METOPROLOL TARTRATE 50 MG TABLET GT SCH ×2 (08:22→21:00)
[2018-07-29] MEDS: NEOMY/BACITRA/POLYMYXIN B OINT UD PACKET TP SCH ×4 (08:23→21:00)
[2018-07-29] MEDS: LACOSAMIDE 200 MG TABLET XX SCH ×2 (08:23→21:00)
[2018-07-29] MEDS: NORMAL SALINE FLUSH 10 ML DISP.SYRIN IV SCH ×2 (09:00→21:00)
--- NOTE | 2018-07-29 11:54 | NUR ---
Patient seen by Dr. Tierney today for dental cleaning. See dental notes for details.
[2018-07-29 14:34] LABS: BASOPHILS % (AUTO) 0.7 % (0.0-2.0); HEMATOCRIT 25.2 % (36.7-47.1); HEMOGLOBIN 8.1 g/dL (12.5-16.3); LYMPHOCYTES # (AUTO) 1.1 K/uL (20.0-40.0); LYMPHOCYTES % (AUTO) 19.4 % (20.5-51.5); MEAN CORPUSCULAR HEMOGLOBIN 26.6 uug (23.8-33.4); MEAN CORPUSCULAR HGB CONC 32 g/dL (32.5-36.3); MEAN CORPUSCULAR VOLUME 82.4 fL (73.0-96.2); MONOCYTES # (AUTO) 0.6 K/uL (2.0-10.0); MONOCYTES % (AUTO) 10.8 % (0.0-11.0); NEUTROPHILS # (AUTO) 3.8 K/uL (1.8-8.9); NEUTROPHILS % (AUTO) 69.1 % (38.5-71.5); PLATELET COUNT (AUTO) 155 K/uL (152-348); RED BLOOD CELL COUNT(AUTO) 3.05 MIL/uL (4.06-5.63); WHITE BLOOD COUNT (AUTO) 5.5 K/uL (3.6-10.2)
[2018-07-29 14:49] LABS: ALANINE AMINOTRANSFERASE 95 U/L (16-63); ALKALINE PHOSPHATASE 106 U/L (50-136); ASPARTATE AMINOTRANSFERASE 56 U/L (15-37); BILIRUBIN,TOTAL 0.3 mg/dL (0.2-1.0); CARBON DIOXIDE 28 mmol/L (21-32); CHLORIDE 105 mmol/L (98-107); CREATININE 0.4 mg/dL (0.6-1.3); GLUCOSE 114 mg/dL (74-106); POTASSIUM 4.2 mmol/L (3.5-5.1); TOTAL PROTEIN, SERUM 5.4 g/dL (6.4-8.2); UREA NITROGEN, BLOOD 15 mg/dL (7-18)
[2018-07-29 15:02] LABS: LYMPHOCYTES % (MANUAL) 19 % (20-40); MONOCYTES % (MANUAL) 14 % (2-10); NEUTROPHILS % (MANUAL) 67 % (42-75)
[2018-07-29] MEDS: ATORVASTATIN 10 MG TABLET GT SCH (21:00)
[2018-07-29] MEDS: RIVAROXABAN 15 MG TABLET PO SCH (21:00)
[2018-07-29] MEDS: ARGINAID GT SCH (21:00)
[2018-07-29] MEDS: MULTIVITAMINS,THERAPEUTIC TABLET GT SCH (21:00)
[2018-07-29 21:02] VITALS: BP 134/70
[2018-07-30] MEDS: METOCLOPRAMIDE HCL 10 MG/10 ML UDC GT SCH ×4 (00:21→18:06)
[2018-07-30] MEDS: ALBUTEROL SULFATE 2.5 MG/3 ML NEBU NEB SCH ×4 (01:21→19:08)
[2018-07-30] MEDS: IPRATROPIUM BROMIDE 0.5 MG/2.5 ML NEBU NEB SCH ×4 (01:21→19:08)
[2018-07-30] MEDS: GLUCERNA 1.2 1000ML LIQUID GT PRN (04:00)
[2018-07-30] MEDS: NS IV SCH ×5 (05:58→18:20)
[2018-07-30] MEDS: AMPICILLIN IV SCH ×5 (05:58→18:20)
[2018-07-30] MEDS: POLYVINYL ALCOHOL OPHT DROPS 15 ML BOTTLE OP SCH ×3 (06:26→21:45)
[2018-07-30] MEDS: FERROUS SULFATE 330 MG/7.5 ML UDC- FOR SA ONLY GT SCH ×3 (06:26→21:45)
[2018-07-30] MEDS: FAMOTIDINE 40 MG TABLET GT SCH (06:26)
[2018-07-30] MEDS: BLOOD SUGAR DIAGNOSTIC 1 EACH STRIP VI SCH (06:26)
[2018-07-30] MEDS: INSULIN REGULAR, HUMAN 300 UNIT/3 ML VIAL SQ PRN (06:26)
[2018-07-30] MEDS: CHOLECALCIFEROL 1,000 UNIT TABLET GT SCH (06:26)
[2018-07-30 08:04] VITALS: BP 134/72
[2018-07-30] MEDS: NEOMY/BACITRA/POLYMYXIN B OINT UD PACKET TP SCH ×4 (09:00→21:45)
[2018-07-30] MEDS: NORMAL SALINE FLUSH 10 ML DISP.SYRIN IV SCH ×2 (09:00→21:00)
[2018-07-30] MEDS: HYDROGEN PEROXIDE 3% 118 ML BOTTLE TP SCH ×2 (09:00→21:43)
[2018-07-30] MEDS: ASPIRIN 81 MG TAB.CHEW GT SCH (09:25)
[2018-07-30] MEDS: LOSARTAN POTASSIUM 50 MG TABLET GT SCH (09:25)
[2018-07-30] MEDS: LEVETIRACETAM 500 MG/5 ML LIQUID UDC GT SCH ×2 (09:26→21:41)
[2018-07-30] MEDS: VALPROIC ACID 250 MG/5 ML LIQUID UDC GT SCH ×2 (09:26→21:40)
[2018-07-30] MEDS: ASCORBIC ACID 500 MG TABLET GT SCH ×2 (09:28→21:42)
[2018-07-30] MEDS: PROTEIN SUPPLEMENT (PROSTAT) 30 ML LIQUID GT SCH ×2 (09:28→16:47)
[2018-07-30] MEDS: METOPROLOL TARTRATE 50 MG TABLET GT SCH ×2 (09:28→21:42)
[2018-07-30] MEDS: ACETAMINOPHEN 325 MG TABLET-SA PATIENTS-PAIN ONLY PO SCH ×2 (09:29→21:43)
[2018-07-30] MEDS: LACOSAMIDE 200 MG TABLET XX SCH ×2 (09:30→21:45)
[2018-07-30] MEDS: SODIUM HYPOCHLORITE 0.125% 473 ML BOTTLE TP SCH ×3 (10:00→16:47)
--- NOTE | 2018-07-30 13:35 | NUR ---
Pharmacy Update from Today's 07/30/18 IDT Meeting Note: Pt admitted 05/20/18 from acute rehab for continuation of care after sudden cardiac arrest and subsequent anoxic brain injury. Pt is vent dependent, bedbound and developed seizures after cardiac arrest. Was treated for VAP, UTI, sepsis before transfer to [facility]: Temp 98.4 BP 134/70 HR 86 LABS: (from 07/29/18) Wbc 5.5 H/H 8.1/25.2 Plt 155 Na 138 K 4.2 Cl 105 CO2 28 BUN/Scr 15/0.4 BS 114 Ca 8.4 MEDICATION USE REVIEWED: > Pt not on any anti-psych medications > Pt on Keppra 1500mg q12h since admit on 05/20/18, last calculated CrCl >130 ml/min, dose ok per renal fxn. > Pt on Vimpat 200mg q12h since admit 05/20/18, no seizures reported > Pt on Valproic acid 1000mg q12h since admit 05/20/18, no seizures at this time, Rx rec for baseline level, ordered 05/29/18 resulted 54 (50-100) within therapeutic range. No reported seizures > Pt on Cozaar 50mg daily since 05/20/18, Lopressor 50mg q12hr (increased from 25mg q12h on 05/21), and hydralazine 10mg PRN SBP >160. Hold parameters in effect. > Pt on famotidine 40mg daily for GI prophylaxis, ok per renal function. Remains on reglan 5mg q6h for continued gastroparesis maintenance treatment > Pt on xarelto 15mg daily since 06/03/18 for bilateral upper extremity DVT, last plt 155, ok. PRN MED USAGE: (June) Tylenol for pain/temp x2 Hydralazine used x0 NEW ORDERS NOTED: > Continues on ampicillin IV for sacral wound osteomyelitis Patient was reviewed and discussed at IDT meeting with no medication issues or concerns at this time. Continues on ampicillin IV with no SEs noted. No further recs from rx at this time. Will continue to follow
--- NOTE | 2018-07-30 14:26 | NUR ---
INTERDISCIPLINARY PLAN OF CARE was held today. Patient's family was unable to attend the meeting. Dr. Beltrán and the Interdisciplinary Team reviewed the current plan of care in detail. RN reported on patient's medical condition since last IDT meeting, and provided updates on ongoing treatments. No major changes in condition were reported. Isolation status continues. See RN IDT conference notes. See also all other disciplines IDT notes and physician's progress notes for additional details.
--- NOTE | 2018-07-30 16:43 | NUR ---
Patient's and daughter met with CAMDEN this afternoon, and asked CAMDEN for assistance with completing a Certification of Health Care Provider for [facility] Family Rights Act (CFRA) or Family and Medical Leave Act (FMLA) form. CAMDEN assisted patient's family with completing this form, and met with Dr. Harper for his review and obtained his signature on the form. CAMDEN filed a copy of the form in patient's file in SW office, and returned the original completed form to the patient's . Patient's stated she will mail the form in.
--- NOTE | 2018-07-30 19:10 | NUR ---
Received pt on HT-50 ventilator with the following settings of AC-12, Vt-500, PEEP+5, FIO2-2LPM bleed-in, trached with Shiley#6 DCT trach, which is in the place and secure. No respiratory distress noted. Airway care done, pt responded to physical stimuli. In-line HHN tx with 2.5mg Albuterol+0.5mg Atrovent given, pt tolerated well. HME changed. PPE used. Resus. bag and back up trach at bedside. Vent and alarms checked and reset.
[2018-07-30 20:00] VITALS: BP 119/58
[2018-07-30] MEDS: ATORVASTATIN 10 MG TABLET GT SCH (21:41)
[2018-07-30] MEDS: MULTIVITAMINS,THERAPEUTIC TABLET GT SCH (21:42)
[2018-07-30] MEDS: ARGINAID GT SCH (21:42)
[2018-07-30] MEDS: RIVAROXABAN 15 MG TABLET PO SCH (21:44)
[2018-07-31] MEDS: METOCLOPRAMIDE HCL 10 MG/10 ML UDC GT SCH ×4 (00:20→17:59)
[2018-07-31] MEDS: IPRATROPIUM BROMIDE 0.5 MG/2.5 ML NEBU NEB SCH ×4 (01:00→19:50)
[2018-07-31] MEDS: ALBUTEROL SULFATE 2.5 MG/3 ML NEBU NEB SCH ×4 (01:00→19:50)
[2018-07-31] MEDS: GLUCERNA 1.2 1000ML LIQUID GT PRN (03:20)
[2018-07-31] MEDS: AMPICILLIN IV SCH ×5 (05:38→17:54)
[2018-07-31] MEDS: NS IV SCH ×5 (05:38→17:54)
[2018-07-31] MEDS: POLYVINYL ALCOHOL OPHT DROPS 15 ML BOTTLE OP SCH ×3 (05:39→21:31)
[2018-07-31] MEDS: CHOLECALCIFEROL 1,000 UNIT TABLET GT SCH (05:39)
[2018-07-31] MEDS: FERROUS SULFATE 330 MG/7.5 ML UDC- FOR SA ONLY GT SCH ×3 (05:39→21:30)
[2018-07-31] MEDS: BLOOD SUGAR DIAGNOSTIC 1 EACH STRIP VI SCH (05:40)
[2018-07-31] MEDS: FAMOTIDINE 40 MG TABLET GT SCH (05:40)
--- NOTE | 2018-07-31 07:50 | NUR ---
PT RECEIVED ON CONTINUOUS VENT AC 12 VT 500 PEEP 5 FIO2 2LPM BLEED. IN LINE TX GIVEN WITH UD ALBUTEROL + UD ATROVENT ORDERED. SUCTION SMALL AMOUNT THICK PALE YELLOW SECRETIONS. TRACH IN PLACED AND SECURED WITH TRACH TIE. BACK UP TRACH AND AMBU BAG AT BEDSIDE. VENT CHECKED, ALARMS WORKING WELL AND AUDIBLE. NO SIGNS OF RESPIRATORY DISTRESS NOTED AT THIS TIME. PPE USED. WILL CONTINUE TO MONITOR.
[2018-07-31 08:04] VITALS: BP 105/66
[2018-07-31] MEDS: ASPIRIN 81 MG TAB.CHEW GT SCH (08:23)
[2018-07-31] MEDS: LOSARTAN POTASSIUM 50 MG TABLET GT SCH (08:25)
[2018-07-31] MEDS: VALPROIC ACID 250 MG/5 ML LIQUID UDC GT SCH ×2 (08:25→21:23)
[2018-07-31] MEDS: PROTEIN SUPPLEMENT (PROSTAT) 30 ML LIQUID GT SCH ×2 (08:26→17:59)
[2018-07-31] MEDS: LEVETIRACETAM 500 MG/5 ML LIQUID UDC GT SCH ×2 (08:26→21:23)
[2018-07-31] MEDS: METOPROLOL TARTRATE 50 MG TABLET GT SCH ×2 (08:26→21:29)
[2018-07-31] MEDS: ACETAMINOPHEN 325 MG TABLET-SA PATIENTS-PAIN ONLY PO SCH ×2 (08:27→21:30)
[2018-07-31] MEDS: ASCORBIC ACID 500 MG TABLET GT SCH ×2 (08:27→21:29)
[2018-07-31] MEDS: HYDROGEN PEROXIDE 3% 118 ML BOTTLE TP SCH ×2 (08:28→21:30)
[2018-07-31] MEDS: NEOMY/BACITRA/POLYMYXIN B OINT UD PACKET TP SCH ×4 (08:28→21:30)
[2018-07-31] MEDS: LACOSAMIDE 200 MG TABLET XX SCH ×2 (09:25→21:30)
[2018-07-31] MEDS: SODIUM HYPOCHLORITE 0.125% 473 ML BOTTLE TP SCH ×3 (09:25→17:59)
[2018-07-31] MEDS: NORMAL SALINE FLUSH 10 ML DISP.SYRIN IV SCH ×2 (11:11→21:00)
--- NOTE | 2018-07-31 18:28 | NUR ---
Seen by Dr. Beltrán, new order given for urology consult (re-penile edema).
--- NOTE | 2018-07-31 18:57 | NUR ---
DOCTOR ARNULFO WAS NOTIFIED OF PATIENT'S EDEMA ON PENIS, NO ORDERS RECEIVED.
[2018-07-31 20:16] VITALS: BP 118/68
[2018-07-31] MEDS: ATORVASTATIN 10 MG TABLET GT SCH (21:28)
[2018-07-31] MEDS: ARGINAID GT SCH (21:29)
[2018-07-31] MEDS: MULTIVITAMINS,THERAPEUTIC TABLET GT SCH (21:29)
[2018-07-31] MEDS: RIVAROXABAN 15 MG TABLET PO SCH (21:36)
[2018-08-01] MEDS: METOCLOPRAMIDE HCL 10 MG/10 ML UDC GT SCH ×4 (00:11→17:51)
[2018-08-01] MEDS: ALBUTEROL SULFATE 2.5 MG/3 ML NEBU NEB SCH ×4 (01:56→19:12)
[2018-08-01] MEDS: IPRATROPIUM BROMIDE 0.5 MG/2.5 ML NEBU NEB SCH ×4 (01:56→19:12)
--- NOTE | 2018-08-01 02:34 | NUR ---
Patient is afebrile, still on Ampicillin IV for sacral wound osteomylitis, no adverse reactions noted. Still with penile edema, elevated penis on a rolled towel. Right femoral central line is intact and dressing is clean. On contact isolation precaution for VRE of wound. Treatment done to sacral wound as ordered. Fletcher catheter is draining well to clear yellow urine, good daniel care rendered, turned and repositioned, kept clean and comfortable.
--- NOTE | 2018-08-01 04:16 | NUR ---
PT ON CONT HT 50 VENT WITH TRACH IN PLACE AND SECURED, WITH SAME CURRENT VENT SETTINGS, PT WITH MOSTLY CONTROLLED VENTILATION, GOOD COUGH EFFORT, SUCTIONED LIGHT PALE YELL TINGE SECRETIONS, CHECK CUFF, CHANGE HME, ALL VENT ALARMS GOOD, NO VENT CHANGES MADE, AMBU BAG AT BEDSIDE. Emily STRAUSSP Addendum: 08/01/18 at 0418 by PAIGE HOWELL RT Amended: Links added.
[2018-08-01] MEDS: NS IV SCH ×5 (05:55→17:06)
[2018-08-01] MEDS: AMPICILLIN IV SCH ×5 (05:55→17:06)
[2018-08-01] MEDS: FAMOTIDINE 40 MG TABLET GT SCH (06:05)
[2018-08-01] MEDS: FERROUS SULFATE 330 MG/7.5 ML UDC- FOR SA ONLY GT SCH ×3 (06:05→21:33)
[2018-08-01] MEDS: BLOOD SUGAR DIAGNOSTIC 1 EACH STRIP VI SCH (06:05)
[2018-08-01] MEDS: POLYVINYL ALCOHOL OPHT DROPS 15 ML BOTTLE OP SCH ×3 (06:05→21:33)
[2018-08-01] MEDS: CHOLECALCIFEROL 1,000 UNIT TABLET GT SCH (06:05)
[2018-08-01 08:06] VITALS: BP 98/65
[2018-08-01] MEDS: ASPIRIN 81 MG TAB.CHEW GT SCH (08:52)
[2018-08-01] MEDS: VALPROIC ACID 250 MG/5 ML LIQUID UDC GT SCH ×2 (08:53→21:26)
[2018-08-01] MEDS: LEVETIRACETAM 500 MG/5 ML LIQUID UDC GT SCH ×2 (08:53→21:30)
[2018-08-01] MEDS: METOPROLOL TARTRATE 50 MG TABLET GT SCH ×2 (08:54→21:31)
[2018-08-01] MEDS: ASCORBIC ACID 500 MG TABLET GT SCH ×2 (08:55→21:31)
[2018-08-01] MEDS: NORMAL SALINE FLUSH 10 ML DISP.SYRIN IV SCH ×2 (08:55→21:00)
[2018-08-01] MEDS: PROTEIN SUPPLEMENT (PROSTAT) 30 ML LIQUID GT SCH ×2 (08:55→17:51)
[2018-08-01] MEDS: LOSARTAN POTASSIUM 50 MG TABLET GT SCH (08:55)
[2018-08-01] MEDS: ACETAMINOPHEN 325 MG TABLET-SA PATIENTS-PAIN ONLY PO SCH ×2 (08:56→21:32)
[2018-08-01] MEDS: LACOSAMIDE 200 MG TABLET XX SCH ×2 (08:56→21:33)
[2018-08-01] MEDS: HYDROGEN PEROXIDE 3% 118 ML BOTTLE TP SCH ×2 (08:56→21:32)
[2018-08-01] MEDS: SODIUM HYPOCHLORITE 0.125% 473 ML BOTTLE TP SCH ×3 (08:56→17:51)
[2018-08-01] MEDS: NEOMY/BACITRA/POLYMYXIN B OINT UD PACKET TP SCH ×2 (08:56→21:32)
--- NOTE | 2018-08-01 16:00 | NUR ---
LATE ENTRY FOR 07/24/09 FOR WEEKLY ASSESSMENT FOR CENTRAL LINE NEEDED.IV ATB TX WITH AMPICILLIN X 6 WEEKS TX TO TREAT OSTEOMYELITIS ON SACRAL WOUND.LINE INTACT AND PATENT DRESSING WAS CHANGED IN STERILE MANNER.
--- NOTE | 2018-08-01 16:25 | NUR ---
DR. AUGUSTE (UROLOGIST) WAS CALLED AND MESSAGE WAS LEFT.
--- NOTE | 2018-08-01 19:00 | NUR ---
SEEN BY DR. WRAY AND WAYNE LEROY AND DID WOUND DEBRIDEMENT AT THIS TIME AND WELL TOLERATED.
[2018-08-01 20:08] VITALS: BP 128/60
[2018-08-01] MEDS: MULTIVITAMINS,THERAPEUTIC TABLET GT SCH (21:27)
[2018-08-01] MEDS: ARGINAID GT SCH (21:28)
[2018-08-01] MEDS: ATORVASTATIN 10 MG TABLET GT SCH (21:30)
[2018-08-01] MEDS: RIVAROXABAN 15 MG TABLET PO SCH (21:32)
--- NOTE | 2018-08-01 22:00 | NUR ---
S/p sacral wound debridement, dressing intact, no active bleeding noted at this time. Afebrile, still on ampicillin IV for sacral wound osteomylitis, no adverse reactions noted. Right femoral central line is intact and flushing well. cordova catheter draining well to yellow urine, good daniel care rendered, kept patient clean and comfortable.
[2018-08-02] MEDS: IPRATROPIUM BROMIDE 0.5 MG/2.5 ML NEBU NEB SCH ×4 (00:55→19:18)
[2018-08-02] MEDS: ALBUTEROL SULFATE 2.5 MG/3 ML NEBU NEB SCH ×4 (00:55→19:18)
[2018-08-02] MEDS: FERROUS SULFATE 330 MG/7.5 ML UDC- FOR SA ONLY GT SCH ×3 (05:34→21:40)
[2018-08-02] MEDS: CHOLECALCIFEROL 1,000 UNIT TABLET GT SCH (05:35)
[2018-08-02] MEDS: FAMOTIDINE 40 MG TABLET GT SCH (05:35)
[2018-08-02] MEDS: POLYVINYL ALCOHOL OPHT DROPS 15 ML BOTTLE OP SCH ×3 (05:35→21:40)
[2018-08-02] MEDS: METOCLOPRAMIDE HCL 10 MG/10 ML UDC GT SCH ×4 (05:35→17:19)
[2018-08-02] MEDS: BLOOD SUGAR DIAGNOSTIC 1 EACH STRIP VI SCH (05:36)
[2018-08-02] MEDS: AMPICILLIN IV SCH ×5 (06:18→18:00)
[2018-08-02] MEDS: NS IV SCH ×5 (06:18→18:00)
[2018-08-02 08:11] VITALS: BP 121/64
[2018-08-02] MEDS: ASPIRIN 81 MG TAB.CHEW GT SCH (08:43)
[2018-08-02] MEDS: LOSARTAN POTASSIUM 50 MG TABLET GT SCH (08:47)
[2018-08-02] MEDS: VALPROIC ACID 250 MG/5 ML LIQUID UDC GT SCH ×2 (08:47→21:38)
[2018-08-02] MEDS: PROTEIN SUPPLEMENT (PROSTAT) 30 ML LIQUID GT SCH ×2 (08:48→17:19)
[2018-08-02] MEDS: LEVETIRACETAM 500 MG/5 ML LIQUID UDC GT SCH ×2 (08:48→21:38)
[2018-08-02] MEDS: METOPROLOL TARTRATE 50 MG TABLET GT SCH ×2 (08:48→21:39)
[2018-08-02] MEDS: ASCORBIC ACID 500 MG TABLET GT SCH ×2 (08:49→21:39)
[2018-08-02] MEDS: ACETAMINOPHEN 325 MG TABLET-SA PATIENTS-PAIN ONLY PO SCH ×2 (08:51→21:39)
[2018-08-02] MEDS: HYDROGEN PEROXIDE 3% 118 ML BOTTLE TP SCH ×2 (08:51→21:40)
[2018-08-02] MEDS: SODIUM HYPOCHLORITE 0.125% 473 ML BOTTLE TP SCH ×3 (08:51→17:19)
[2018-08-02] MEDS: LACOSAMIDE 200 MG TABLET XX SCH ×2 (08:55→21:40)
[2018-08-02] MEDS: NEOMY/BACITRA/POLYMYXIN B OINT UD PACKET TP SCH (08:56)
[2018-08-02] MEDS: NORMAL SALINE FLUSH 10 ML DISP.SYRIN IV SCH ×2 (09:00→21:00)
[2018-08-02] MEDS ORDERED: TUBERCULIN,PURIF.PROT.DERIV. 5 TU/0.1 ML TEST ID ONE (14:30)
--- NOTE | 2018-08-02 14:41 | NUR ---
PT ON HT-50 VENT, SETTINGS ARE AC 12, Vt-500, +5, 2 LPM BLEED IN. SHILEY 6 TRACH IS PATENT AND SECURED WITH TIES, SITE IS CLEAN AND DRY. DOING WELL ON CURRENT VENT SETTINGS. TXS TOLERATED WELL. SUCTIONED SMALL AMOUNTS OF PALE YELLOW THICK SECRETIONS. BVM AND BACK UP TRACH AT BEDSIDE. WILL CONTINUE TO MONITOR.
--- NOTE | 2018-08-02 15:03 | NUR ---
NEW ORDER CARRIED OUT FROM DR. HAMMER FOR STATED HE COMUNICATES IN [place] WITH PT'S AND ALSO HE STATED THAT HE WILL SEE PT. AGAIN SOON .
--- NOTE | 2018-08-02 15:05 | NUR ---
PPD SKIN TEST ADM ON LEFT F/A AT THIS TIME ORDERED .AMBULATORY CARE COORDINATOR SANGOODWIN PASTEUR LOT.# [id number].
[2018-08-02] MEDS: GLUCERNA 1.2 1000ML LIQUID GT PRN (17:20)
[2018-08-02] MEDS: RIVAROXABAN 15 MG TABLET PO SCH (21:00)
[2018-08-02] MEDS: ATORVASTATIN 10 MG TABLET GT SCH (21:38)
[2018-08-02] MEDS: ARGINAID GT SCH (21:39)
[2018-08-02] MEDS: MULTIVITAMINS,THERAPEUTIC TABLET GT SCH (21:39)
[2018-08-02 22:00] VITALS: BP 108/60
[2018-08-03] MEDS: METOCLOPRAMIDE HCL 10 MG/10 ML UDC GT SCH ×4 (00:13→17:09)
[2018-08-03] MEDS: IPRATROPIUM BROMIDE 0.5 MG/2.5 ML NEBU NEB SCH ×4 (00:44→19:08)
[2018-08-03] MEDS: ALBUTEROL SULFATE 2.5 MG/3 ML NEBU NEB SCH ×4 (00:44→19:08)
--- NOTE | 2018-08-03 02:17 | NUR ---
continue on ampicillin 1 gm iv for sacral wound osteomylitis, no adverse reaction noted, right femoral central line patent, flushed all 3 ports.
[2018-08-03] MEDS: CHOLECALCIFEROL 1,000 UNIT TABLET GT SCH (05:15)
[2018-08-03] MEDS: POLYVINYL ALCOHOL OPHT DROPS 15 ML BOTTLE OP SCH ×3 (05:15→21:50)
[2018-08-03] MEDS: FERROUS SULFATE 330 MG/7.5 ML UDC- FOR SA ONLY GT SCH ×3 (05:15→21:50)
[2018-08-03] MEDS: NS IV SCH ×5 (05:23→18:05)
[2018-08-03] MEDS: AMPICILLIN IV SCH ×5 (05:23→18:05)
[2018-08-03] MEDS: FAMOTIDINE 40 MG TABLET GT SCH (05:55)
[2018-08-03] MEDS: BLOOD SUGAR DIAGNOSTIC 1 EACH STRIP VI SCH (05:56)
[2018-08-03 08:00] VITALS: BP 107/60
[2018-08-03] MEDS: ASPIRIN 81 MG TAB.CHEW GT SCH (09:00)
[2018-08-03] MEDS: METOPROLOL TARTRATE 50 MG TABLET GT SCH ×2 (09:00→21:47)
[2018-08-03] MEDS: NORMAL SALINE FLUSH 10 ML DISP.SYRIN IV SCH ×2 (09:00→21:00)
[2018-08-03] MEDS: LOSARTAN POTASSIUM 50 MG TABLET GT SCH (09:00)
[2018-08-03] MEDS: LEVETIRACETAM 500 MG/5 ML LIQUID UDC GT SCH ×2 (09:01→21:47)
[2018-08-03] MEDS: VALPROIC ACID 250 MG/5 ML LIQUID UDC GT SCH ×2 (09:01→21:47)
[2018-08-03] MEDS: ASCORBIC ACID 500 MG TABLET GT SCH ×2 (09:02→21:49)
[2018-08-03] MEDS: PROTEIN SUPPLEMENT (PROSTAT) 30 ML LIQUID GT SCH ×2 (09:02→17:09)
[2018-08-03] MEDS: LACOSAMIDE 200 MG TABLET XX SCH ×2 (09:03→21:50)
[2018-08-03] MEDS: HYDROGEN PEROXIDE 3% 118 ML BOTTLE TP SCH ×2 (09:03→21:50)
[2018-08-03] MEDS: ACETAMINOPHEN 325 MG TABLET-SA PATIENTS-PAIN ONLY PO SCH ×2 (09:03→21:00)
[2018-08-03] MEDS: SODIUM HYPOCHLORITE 0.125% 473 ML BOTTLE TP SCH ×3 (09:03→17:09)
[2018-08-03] MEDS: GLUCERNA 1.2 1000ML LIQUID GT PRN (10:57)
[2018-08-03] MEDS: ATORVASTATIN 10 MG TABLET GT SCH (21:47)
[2018-08-03] MEDS: MULTIVITAMINS,THERAPEUTIC TABLET GT SCH (21:48)
[2018-08-03] MEDS: ARGINAID GT SCH (21:48)
[2018-08-03] MEDS: RIVAROXABAN 15 MG TABLET PO SCH (21:49)
[2018-08-03 22:44] VITALS: BP 107/56
[2018-08-04] MEDS: AMPICILLIN IV SCH ×5 (00:09→23:42)
[2018-08-04] MEDS: NS IV SCH ×5 (00:09→23:42)
[2018-08-04] MEDS: METOCLOPRAMIDE HCL 10 MG/10 ML UDC GT SCH ×4 (00:18→17:41)
[2018-08-04] MEDS: ALBUTEROL SULFATE 2.5 MG/3 ML NEBU NEB SCH ×4 (01:06→19:18)
[2018-08-04] MEDS: IPRATROPIUM BROMIDE 0.5 MG/2.5 ML NEBU NEB SCH ×4 (01:06→19:18)
--- NOTE | 2018-08-04 02:11 | NUR ---
continue on ampicillin 1 gm iv for sacral wound osteomyelitis, no adverse reaction noted,right femoral central line with triple lumen patent and flushed.
[2018-08-04] MEDS: GLUCERNA 1.2 1000ML LIQUID GT PRN (04:04)
[2018-08-04] MEDS: CHOLECALCIFEROL 1,000 UNIT TABLET GT SCH (05:40)
[2018-08-04] MEDS: FAMOTIDINE 40 MG TABLET GT SCH (05:40)
[2018-08-04] MEDS: FERROUS SULFATE 330 MG/7.5 ML UDC- FOR SA ONLY GT SCH ×3 (05:40→22:03)
[2018-08-04] MEDS: BLOOD SUGAR DIAGNOSTIC 1 EACH STRIP VI SCH (05:40)
[2018-08-04] MEDS: POLYVINYL ALCOHOL OPHT DROPS 15 ML BOTTLE OP SCH ×3 (05:40→22:03)
[2018-08-04] MEDS: ASPIRIN 81 MG TAB.CHEW GT SCH (08:29)
[2018-08-04] MEDS: LOSARTAN POTASSIUM 50 MG TABLET GT SCH (08:29)
[2018-08-04] MEDS: VALPROIC ACID 250 MG/5 ML LIQUID UDC GT SCH ×2 (08:31→20:48)
[2018-08-04] MEDS: LEVETIRACETAM 500 MG/5 ML LIQUID UDC GT SCH ×2 (08:31→20:49)
[2018-08-04] MEDS: METOPROLOL TARTRATE 50 MG TABLET GT SCH ×2 (08:32→20:50)
[2018-08-04] MEDS: PROTEIN SUPPLEMENT (PROSTAT) 30 ML LIQUID GT SCH ×2 (08:32→17:41)
[2018-08-04] MEDS: ASCORBIC ACID 500 MG TABLET GT SCH ×2 (08:33→20:51)
[2018-08-04] MEDS: ACETAMINOPHEN 325 MG TABLET-SA PATIENTS-PAIN ONLY PO SCH ×2 (08:35→20:52)
[2018-08-04] MEDS: HYDROGEN PEROXIDE 3% 118 ML BOTTLE TP SCH ×2 (08:37→20:52)
[2018-08-04] MEDS: SODIUM HYPOCHLORITE 0.125% 473 ML BOTTLE TP SCH ×3 (08:37→17:41)
[2018-08-04] MEDS: LACOSAMIDE 200 MG TABLET XX SCH ×2 (08:37→20:52)
[2018-08-04] MEDS: NORMAL SALINE FLUSH 10 ML DISP.SYRIN IV SCH ×2 (09:00→21:00)
[2018-08-04 11:34] VITALS: BP 104/65
--- NOTE | 2018-08-04 13:16 | NUR ---
PT'S RT. FEMORAL CENTRAL LINE DRESSING CHANGED IN STERILE MANNER D/T MOISTURE FROM PT'S OWN SWEAT.
--- NOTE | 2018-08-04 15:05 | NUR ---
P.P.D READ AT THIS TIME NAD NEGATIVE :0 MM,NO REDNESS AND NO INDURATION.
[2018-08-04] MEDS: ATORVASTATIN 10 MG TABLET GT SCH (20:49)
[2018-08-04] MEDS: ARGINAID GT SCH (20:50)
[2018-08-04] MEDS: MULTIVITAMINS,THERAPEUTIC TABLET GT SCH (20:51)
[2018-08-04] MEDS: RIVAROXABAN 15 MG TABLET PO SCH (20:55)
[2018-08-04 22:55] VITALS: BP 104/50
[2018-08-05] MEDS: ALBUTEROL SULFATE 2.5 MG/3 ML NEBU NEB SCH ×4 (00:34→19:10)
[2018-08-05] MEDS: IPRATROPIUM BROMIDE 0.5 MG/2.5 ML NEBU NEB SCH ×4 (00:34→19:10)
[2018-08-05] MEDS: METOCLOPRAMIDE HCL 10 MG/10 ML UDC GT SCH ×4 (00:40→18:24)
[2018-08-05] MEDS: GLUCERNA 1.2 1000ML LIQUID GT PRN (01:34)
[2018-08-05] MEDS: FERROUS SULFATE 330 MG/7.5 ML UDC- FOR SA ONLY GT SCH ×3 (06:10→21:05)
[2018-08-05] MEDS: CHOLECALCIFEROL 1,000 UNIT TABLET GT SCH (06:10)
[2018-08-05] MEDS: FAMOTIDINE 40 MG TABLET GT SCH (06:10)
[2018-08-05] MEDS: POLYVINYL ALCOHOL OPHT DROPS 15 ML BOTTLE OP SCH ×3 (06:10→21:05)
[2018-08-05] MEDS: BLOOD SUGAR DIAGNOSTIC 1 EACH STRIP VI SCH (06:10)
[2018-08-05] MEDS: AMPICILLIN IV SCH ×3 (06:26→18:00)
[2018-08-05] MEDS: NS IV SCH ×3 (06:26→18:00)
[2018-08-05 08:10] VITALS: BP 90/60
[2018-08-05] MEDS: LOSARTAN POTASSIUM 50 MG TABLET GT SCH (08:16)
[2018-08-05] MEDS: ASPIRIN 81 MG TAB.CHEW GT SCH (08:16)
[2018-08-05] MEDS: VALPROIC ACID 250 MG/5 ML LIQUID UDC GT SCH ×2 (08:17→20:58)
[2018-08-05] MEDS: PROTEIN SUPPLEMENT (PROSTAT) 30 ML LIQUID GT SCH ×2 (08:17→17:26)
[2018-08-05] MEDS: ASCORBIC ACID 500 MG TABLET GT SCH ×2 (08:17→21:04)
[2018-08-05] MEDS: LEVETIRACETAM 500 MG/5 ML LIQUID UDC GT SCH ×2 (08:17→21:04)
[2018-08-05] MEDS: METOPROLOL TARTRATE 50 MG TABLET GT SCH ×2 (08:17→21:00)
[2018-08-05] MEDS: SODIUM HYPOCHLORITE 0.125% 473 ML BOTTLE TP SCH ×3 (08:17→17:26)
[2018-08-05] MEDS: HYDROGEN PEROXIDE 3% 118 ML BOTTLE TP SCH ×2 (08:17→21:05)
[2018-08-05] MEDS: LACOSAMIDE 200 MG TABLET XX SCH ×2 (08:17→21:05)
[2018-08-05] MEDS: ACETAMINOPHEN 325 MG TABLET-SA PATIENTS-PAIN ONLY PO SCH ×2 (08:17→21:05)
[2018-08-05] MEDS: NORMAL SALINE FLUSH 10 ML DISP.SYRIN IV SCH ×2 (09:00→21:00)
--- NOTE | 2018-08-05 13:57 | NUR ---
SEEN BY AGUS ROCHA.
--- NOTE | 2018-08-05 15:05 | NUR ---
POST 72 HOURS P.P.D READING AT THIS TIME AND FOLLOW:NEGATIVE,0 MM. INDURATION AND REDNESS.
[2018-08-05] MEDS: RIVAROXABAN 15 MG TABLET PO SCH (20:58)
[2018-08-05] MEDS: ATORVASTATIN 10 MG TABLET GT SCH (20:59)
[2018-08-05] MEDS: ARGINAID GT SCH (21:00)
[2018-08-05] MEDS: MULTIVITAMINS,THERAPEUTIC TABLET GT SCH (21:04)
[2018-08-05 23:15] VITALS: BP 110/50
[2018-08-06] MEDS: METOCLOPRAMIDE HCL 10 MG/10 ML UDC GT SCH ×4 (00:23→17:23)
[2018-08-06] MEDS: AMPICILLIN IV SCH ×4 (00:38→18:23)
[2018-08-06] MEDS: NS IV SCH ×4 (00:38→18:23)
[2018-08-06] MEDS: IPRATROPIUM BROMIDE 0.5 MG/2.5 ML NEBU NEB SCH ×4 (00:57→19:37)
[2018-08-06] MEDS: ALBUTEROL SULFATE 2.5 MG/3 ML NEBU NEB SCH ×4 (00:57→19:37)
[2018-08-06] MEDS: GLUCERNA 1.2 1000ML LIQUID GT PRN (01:19)
--- NOTE | 2018-08-06 04:10 | NUR ---
With the help of ASSOCIATE PATHOLOGISTAldo Gary, Pt was transferred to [facility] using HT-50 and oxygen tank. No complications. No vent changes made. Vent alarm cable reconnected. Alarm parameters checked, on and audible. Bag/valve/mask and back up trach at bedside.
--- NOTE | 2018-08-06 04:37 | NUR ---
continue on ampicillin 1 gm for sacral wound osteomyelitis, no adverse reaction noted.
[2018-08-06] MEDS: FERROUS SULFATE 330 MG/7.5 ML UDC- FOR SA ONLY GT SCH ×3 (05:36→21:08)
[2018-08-06] MEDS: BLOOD SUGAR DIAGNOSTIC 1 EACH STRIP VI SCH (05:37)
[2018-08-06] MEDS: POLYVINYL ALCOHOL OPHT DROPS 15 ML BOTTLE OP SCH ×3 (05:37→21:09)
[2018-08-06] MEDS: CHOLECALCIFEROL 1,000 UNIT TABLET GT SCH (05:37)
[2018-08-06] MEDS: FAMOTIDINE 40 MG TABLET GT SCH (05:37)
[2018-08-06 08:00] VITALS: BP 116/61
--- NOTE | 2018-08-06 08:26 | NUR ---
DR. ARREDONDO WAS AWARE OF BLISTER UNDER CENTRAL LINE RT FEMORAL LOCAL DRESSING AND SHEYLA WAS CALLED AND MESSAGE WAS LEFT TOO.
--- NOTE | 2018-08-06 08:34 | NUR ---
SHEYLA MARTIN CALLED BACK AND WITH NEW ORDERS CARRIED OUT:D/C RT. FEMORAL CENTRAL LINE,MAY TRY LOWER EXT. PERIPHERAL LINE IN MAIN TIME AND F/U TO TRY PICC LINE PLACEMENT.
--- NOTE | 2018-08-06 09:00 | NUR ---
SEEN BY DR. ARNULFO ROCHA.
[2018-08-06] MEDS: ASPIRIN 81 MG TAB.CHEW GT SCH (09:42)
[2018-08-06] MEDS: METOPROLOL TARTRATE 50 MG TABLET GT SCH ×2 (09:44→21:06)
[2018-08-06] MEDS: LOSARTAN POTASSIUM 50 MG TABLET GT SCH (09:44)
[2018-08-06] MEDS: PROTEIN SUPPLEMENT (PROSTAT) 30 ML LIQUID GT SCH ×2 (09:45→17:23)
[2018-08-06] MEDS: SODIUM HYPOCHLORITE 0.125% 473 ML BOTTLE TP SCH ×3 (09:46→17:23)
[2018-08-06] MEDS: ASCORBIC ACID 500 MG TABLET GT SCH ×2 (09:46→21:07)
[2018-08-06] MEDS: HYDROGEN PEROXIDE 3% 118 ML BOTTLE TP SCH ×2 (09:47→21:08)
[2018-08-06] MEDS: ACETAMINOPHEN 325 MG TABLET-SA PATIENTS-PAIN ONLY PO SCH ×2 (09:48→21:08)
[2018-08-06] MEDS: NORMAL SALINE FLUSH 10 ML DISP.SYRIN IV SCH (09:48)
[2018-08-06] MEDS: VALPROIC ACID 250 MG/5 ML LIQUID UDC GT SCH ×2 (09:49→21:04)
[2018-08-06] MEDS: LEVETIRACETAM 500 MG/5 ML LIQUID UDC GT SCH ×2 (09:51→21:04)
[2018-08-06] MEDS: LACOSAMIDE 200 MG TABLET XX SCH ×2 (09:55→20:56)
--- NOTE | 2018-08-06 11:20 | NUR ---
RT. FEMORAL CENTRAL LINE D/C,REMOVED INTACT AND LOCAL PRESSURE APPLIED X 10 MIN.,PROCEDURE WELL TOLERATED,NO LOCAL BLEEDING NOTED AND LOCAL DRESSING APPLIED .RT. FOOT SITE PERIPHERAL IV LINE # 24 STARTED WITH GOOD BLOOD RETURN.
--- NOTE | 2018-08-06 13:00 | NUR ---
SEEN BY DR. HAMMER AND O.
--- NOTE | 2018-08-06 16:00 | NUR ---
DR. AUGUSTE (UROLOGIST)CALLED X 2 AND MESSAGE LEFT RE:CONSULTATION FOR PENILE EDEMA AND AWAITING FOR CALL BACK.
--- NOTE | 2018-08-06 18:40 | NUR ---
PT. OBSERVED WITH SACRAL WOUND OOZING FLUID FROM GENERALIZED EDEMA IRRITATING SURROUNDING SKIN ,LOCAL TX WAS MODIFIED ONLY TO ADD ABD DRESSING TO ABSORB EXCESSIVE MOISTURE.PICTURE TAKEN OF SURROUNDING SKIN WOUND AREA.
[2018-08-06] MEDS: RIVAROXABAN 15 MG TABLET PO SCH (20:59)
[2018-08-06] MEDS ORDERED: COD LIVER OIL/ZINC OXIDE OINT 113 GM TUBE TP PRN (21:00)
[2018-08-06] MEDS ORDERED: SODIUM HYPOCHLORITE 0.125% 473 ML BOTTLE TP PRN (21:00)
[2018-08-06] MEDS: ARGINAID GT SCH (21:06)
[2018-08-06] MEDS: MULTIVITAMINS,THERAPEUTIC TABLET GT SCH (21:06)
[2018-08-06] MEDS: ATORVASTATIN 10 MG TABLET GT SCH (21:06)
[2018-08-06 22:46] VITALS: BP 109/51
[2018-08-07] MEDS: METOCLOPRAMIDE HCL 10 MG/10 ML UDC GT SCH ×4 (00:13→17:27)
[2018-08-07] MEDS: GLUCERNA 1.2 1000ML LIQUID GT PRN (00:14)
[2018-08-07] MEDS: AMPICILLIN IV SCH ×4 (00:27→18:00)
[2018-08-07] MEDS: NS IV SCH ×4 (00:27→18:00)
[2018-08-07] MEDS: IPRATROPIUM BROMIDE 0.5 MG/2.5 ML NEBU NEB SCH ×4 (01:08→19:07)
[2018-08-07] MEDS: ALBUTEROL SULFATE 2.5 MG/3 ML NEBU NEB SCH ×4 (01:08→19:07)
--- NOTE | 2018-08-07 02:06 | NUR ---
Continues on Ampicillin IV for sacral wound osteomylitis, no adverse reactions noted. Still with penile edema, Awaiting for urology consult, elevated penis on a rolled towel. On contact isolation precaution for VRE of wound. On seizure precaution ,Treatment done to sacral wound as ordered. Fletcher catheter is draining well to clear yellow urine, good daniel care rendered, turned and repositioned, kept clean and comfortable.
[2018-08-07] MEDS: CHOLECALCIFEROL 1,000 UNIT TABLET GT SCH (05:34)
[2018-08-07] MEDS: FAMOTIDINE 40 MG TABLET GT SCH (05:34)
[2018-08-07] MEDS: FERROUS SULFATE 330 MG/7.5 ML UDC- FOR SA ONLY GT SCH ×3 (05:34→21:06)
[2018-08-07] MEDS: POLYVINYL ALCOHOL OPHT DROPS 15 ML BOTTLE OP SCH ×3 (05:34→21:06)
[2018-08-07] MEDS: BLOOD SUGAR DIAGNOSTIC 1 EACH STRIP VI SCH (05:47)
[2018-08-07] MEDS: PROTEIN SUPPLEMENT (PROSTAT) 30 ML LIQUID GT SCH ×2 (09:10→17:27)
[2018-08-07] MEDS: ASCORBIC ACID 500 MG TABLET GT SCH ×2 (09:10→20:54)
[2018-08-07] MEDS: VALPROIC ACID 250 MG/5 ML LIQUID UDC GT SCH ×2 (09:10→20:52)
[2018-08-07] MEDS: METOPROLOL TARTRATE 50 MG TABLET GT SCH ×2 (09:10→20:53)
[2018-08-07] MEDS: ASPIRIN 81 MG TAB.CHEW GT SCH (09:10)
[2018-08-07] MEDS: ACETAMINOPHEN 325 MG TABLET-SA PATIENTS-PAIN ONLY PO SCH ×2 (09:10→20:55)
[2018-08-07] MEDS: LOSARTAN POTASSIUM 50 MG TABLET GT SCH (09:10)
[2018-08-07] MEDS: LEVETIRACETAM 500 MG/5 ML LIQUID UDC GT SCH ×2 (09:10→20:52)
[2018-08-07] MEDS: LACOSAMIDE 200 MG TABLET XX SCH ×2 (09:11→21:06)
[2018-08-07] MEDS: SODIUM HYPOCHLORITE 0.125% 473 ML BOTTLE TP SCH ×3 (09:11→17:27)
[2018-08-07] MEDS: COD LIVER OIL/ZINC OXIDE OINT 113 GM TUBE TP SCH ×3 (09:11→17:27)
[2018-08-07] MEDS: HYDROGEN PEROXIDE 3% 118 ML BOTTLE TP SCH ×2 (09:11→20:55)
[2018-08-07 10:49] VITALS: BP 110/52
[2018-08-07] MEDS: ATORVASTATIN 10 MG TABLET GT SCH (20:52)
[2018-08-07] MEDS: MULTIVITAMINS,THERAPEUTIC TABLET GT SCH (20:54)
[2018-08-07] MEDS: RIVAROXABAN 15 MG TABLET PO SCH (21:00)
[2018-08-07] MEDS: ARGINAID GT SCH (21:06)
[2018-08-07 23:12] VITALS: BP 119/62
--- NOTE | 2018-08-07 23:25 | NUR ---
Remains on Ampicillin IV for sacral wound osteomylitis, no adverse reactions noted. Still with penile edema, elevated penis on a rolled towel. Awaiting for urology consult d/t penile edema. On contact isolation precaution for VRE of wound. On seizure precaution ,Treatment done to sacral wound as ordered. Fletcher catheter is draining well to clear yellow urine, good daniel care rendered, turned and repositioned, kept clean and comfortable.
[2018-08-08] MEDS: METOCLOPRAMIDE HCL 10 MG/10 ML UDC GT SCH ×4 (00:40→17:37)
[2018-08-08] MEDS: GLUCERNA 1.2 1000ML LIQUID GT PRN ×2 (01:00→22:20)
[2018-08-08] MEDS: IPRATROPIUM BROMIDE 0.5 MG/2.5 ML NEBU NEB SCH ×4 (01:08→19:08)
[2018-08-08] MEDS: ALBUTEROL SULFATE 2.5 MG/3 ML NEBU NEB SCH ×4 (01:08→19:08)
[2018-08-08] MEDS: AMPICILLIN IV SCH ×5 (05:56→18:26)
[2018-08-08] MEDS: NS IV SCH ×5 (05:56→18:26)
[2018-08-08] MEDS: INSULIN REGULAR, HUMAN 300 UNIT/3 ML VIAL SQ PRN (06:28)
[2018-08-08] MEDS: CHOLECALCIFEROL 1,000 UNIT TABLET GT SCH (06:28)
[2018-08-08] MEDS: POLYVINYL ALCOHOL OPHT DROPS 15 ML BOTTLE OP SCH ×3 (06:28→21:24)
[2018-08-08] MEDS: BLOOD SUGAR DIAGNOSTIC 1 EACH STRIP VI SCH (06:28)
[2018-08-08] MEDS: FERROUS SULFATE 330 MG/7.5 ML UDC- FOR SA ONLY GT SCH ×3 (06:28→21:24)
[2018-08-08] MEDS: FAMOTIDINE 40 MG TABLET GT SCH (06:28)
[2018-08-08] MEDS: VALPROIC ACID 250 MG/5 ML LIQUID UDC GT SCH ×2 (09:41→21:19)
[2018-08-08] MEDS: ASPIRIN 81 MG TAB.CHEW GT SCH (09:41)
[2018-08-08] MEDS: LOSARTAN POTASSIUM 50 MG TABLET GT SCH (09:41)
[2018-08-08] MEDS: SODIUM HYPOCHLORITE 0.125% 473 ML BOTTLE TP SCH ×3 (09:42→16:37)
[2018-08-08] MEDS: HYDROGEN PEROXIDE 3% 118 ML BOTTLE TP SCH ×2 (09:42→21:23)
[2018-08-08] MEDS: ACETAMINOPHEN 325 MG TABLET-SA PATIENTS-PAIN ONLY PO SCH ×2 (09:42→21:23)
[2018-08-08] MEDS: LEVETIRACETAM 500 MG/5 ML LIQUID UDC GT SCH ×2 (09:42→21:20)
[2018-08-08] MEDS: PROTEIN SUPPLEMENT (PROSTAT) 30 ML LIQUID GT SCH ×2 (09:42→16:37)
[2018-08-08] MEDS: LACOSAMIDE 200 MG TABLET XX SCH ×2 (09:42→21:23)
[2018-08-08] MEDS: COD LIVER OIL/ZINC OXIDE OINT 113 GM TUBE TP SCH ×3 (09:42→16:37)
[2018-08-08] MEDS: ASCORBIC ACID 500 MG TABLET GT SCH ×2 (09:42→21:23)
[2018-08-08] MEDS: METOPROLOL TARTRATE 50 MG TABLET GT SCH ×2 (09:42→21:20)
[2018-08-08 11:03] VITALS: BP 127/55
[2018-08-08] MEDS: ACETAMINOPHEN 650 MG/20 ML UDC- SA PATIENTS-PAIN ONLY GT PRN ×2 (14:20→15:48)
[2018-08-08] MEDS: HYDROCODONE/APAP 5-325MG TABLET GT PRN (17:35)
--- NOTE | 2018-08-08 19:10 | NUR ---
Received pt on HT-50 ventilator with the following settings of AC-12, Vt-500, PEEP+5, FIO2-2LPM bleed-in, trached with Shiley#6 DCT trach, which is in the place and secure. No s/s of respiratory distress noted. Airway care done, pt responded to physical stimuli. In-line HHN tx with 2.5mg Albuterol+0.5mg Atrovent given, pt tolerated well. HME changed. PPE used. Resus. bag and back up trach at bedside. Vent and alarms checked and reset.
[2018-08-08] MEDS: ATORVASTATIN 10 MG TABLET GT SCH (21:20)
[2018-08-08] MEDS: ARGINAID GT SCH (21:22)
[2018-08-08] MEDS: MULTIVITAMINS,THERAPEUTIC TABLET GT SCH (21:23)
[2018-08-08] MEDS: RIVAROXABAN 15 MG TABLET PO SCH (21:34)
[2018-08-08 23:56] VITALS: BP 101/68
[2018-08-09] MEDS: METOCLOPRAMIDE HCL 10 MG/10 ML UDC GT SCH ×4 (00:50→17:20)
[2018-08-09] MEDS: ALBUTEROL SULFATE 2.5 MG/3 ML NEBU NEB SCH ×4 (00:58→19:34)
[2018-08-09] MEDS: IPRATROPIUM BROMIDE 0.5 MG/2.5 ML NEBU NEB SCH ×4 (00:58→19:34)
[2018-08-09] MEDS: CHOLECALCIFEROL 1,000 UNIT TABLET GT SCH (05:41)
[2018-08-09] MEDS: FERROUS SULFATE 330 MG/7.5 ML UDC- FOR SA ONLY GT SCH ×3 (05:41→21:29)
[2018-08-09] MEDS: POLYVINYL ALCOHOL OPHT DROPS 15 ML BOTTLE OP SCH ×3 (05:41→21:29)
[2018-08-09] MEDS: BLOOD SUGAR DIAGNOSTIC 1 EACH STRIP VI SCH (05:43)
[2018-08-09] MEDS: FAMOTIDINE 40 MG TABLET GT SCH (05:43)
[2018-08-09] MEDS: NS IV SCH ×5 (05:53→17:08)
[2018-08-09] MEDS: AMPICILLIN IV SCH ×5 (05:53→17:08)
[2018-08-09] MEDS: ASPIRIN 81 MG TAB.CHEW GT SCH (09:13)
[2018-08-09] MEDS: LOSARTAN POTASSIUM 50 MG TABLET GT SCH (09:14)
[2018-08-09] MEDS: VALPROIC ACID 250 MG/5 ML LIQUID UDC GT SCH ×2 (09:15→21:26)
[2018-08-09] MEDS: METOPROLOL TARTRATE 50 MG TABLET GT SCH ×2 (09:18→21:27)
[2018-08-09] MEDS: PROTEIN SUPPLEMENT (PROSTAT) 30 ML LIQUID GT SCH ×2 (09:21→16:34)
[2018-08-09] MEDS: ASCORBIC ACID 500 MG TABLET GT SCH ×2 (09:21→21:27)
[2018-08-09] MEDS: ACETAMINOPHEN 325 MG TABLET-SA PATIENTS-PAIN ONLY PO SCH ×2 (09:24→21:28)
[2018-08-09] MEDS: HYDROGEN PEROXIDE 3% 118 ML BOTTLE TP SCH ×2 (09:25→21:28)
[2018-08-09] MEDS: COD LIVER OIL/ZINC OXIDE OINT 113 GM TUBE TP SCH ×3 (09:25→17:19)
[2018-08-09] MEDS: SODIUM HYPOCHLORITE 0.125% 473 ML BOTTLE TP SCH ×3 (09:25→17:19)
[2018-08-09] MEDS: LACOSAMIDE 200 MG TABLET XX SCH ×2 (09:25→21:28)
[2018-08-09] MEDS: LEVETIRACETAM 500 MG/5 ML LIQUID UDC GT SCH ×2 (09:32→21:26)
[2018-08-09 10:41] VITALS: BP 121/73
[2018-08-09] MEDS: GLUCERNA 1.2 1000ML LIQUID GT PRN (19:03)
[2018-08-09] MEDS: ATORVASTATIN 10 MG TABLET GT SCH (21:26)
[2018-08-09] MEDS: ARGINAID GT SCH (21:27)
[2018-08-09] MEDS: MULTIVITAMINS,THERAPEUTIC TABLET GT SCH (21:27)
[2018-08-09] MEDS: RIVAROXABAN 15 MG TABLET PO SCH (21:38)
[2018-08-09 22:18] VITALS: BP 104/51
[2018-08-10] MEDS: AMPICILLIN IV SCH ×4 (00:16→17:01)
[2018-08-10] MEDS: NS IV SCH ×4 (00:16→17:01)
[2018-08-10] MEDS: METOCLOPRAMIDE HCL 10 MG/10 ML UDC GT SCH ×4 (00:45→17:04)
[2018-08-10] MEDS: ALBUTEROL SULFATE 2.5 MG/3 ML NEBU NEB SCH ×4 (01:27→19:28)
[2018-08-10] MEDS: IPRATROPIUM BROMIDE 0.5 MG/2.5 ML NEBU NEB SCH ×4 (01:27→19:28)
--- NOTE | 2018-08-10 03:15 | NUR ---
PT ON CONT HT 50 VENT WITH SHILEY # [address] AND SEC[address]ED, WITH SAME CURRENT VENT SETTINGS, O2 BLEED IN 2L/M TO FLOWMETER, SUCTIONED LIGHT PALE YELL TINGE SECRETIONS, WITH GOOD COUGH EFFORT, AND SUCTION MOUTH WITH SHERIN NGUYEN WELL, ALL VENT ALARMS GOOD, NO VENT CHANGES MADE AT THIS TIME, CHANGE HME, CHECK CUFF, AMBU BAG AT BEDSIDE. Emily HOWELL RCP Addendum: 08/10/18 at 0318 by PAIGE HOWELL RT Amended: Links added.
--- NOTE | 2018-08-10 05:05 | NUR ---
continue on ampicillin 1 gm for osteo myelitis at sacral wound, no adverse reaction noted.
[2018-08-10] MEDS: POLYVINYL ALCOHOL OPHT DROPS 15 ML BOTTLE OP SCH ×3 (05:19→21:41)
[2018-08-10] MEDS: CHOLECALCIFEROL 1,000 UNIT TABLET GT SCH (05:19)
[2018-08-10] MEDS: FERROUS SULFATE 330 MG/7.5 ML UDC- FOR SA ONLY GT SCH ×3 (05:19→21:41)
[2018-08-10] MEDS: BLOOD SUGAR DIAGNOSTIC 1 EACH STRIP VI SCH (05:33)
[2018-08-10] MEDS: FAMOTIDINE 40 MG TABLET GT SCH (05:33)
--- NOTE | 2018-08-10 07:40 | NUR ---
Resident endorsed on HT-50 vent with ordered settings of AC 12,Vt 500, +5, 2LpmO2 bleed in. Leonard 6 DCT: HVAC SERVICE TECHNICIAN used for cuff assessment/inflation. SXN PRN; small amounts of thick pale yellow secretions. No SOB or respiratory distress noted. Inline HHN treatment administered as ordered and tolerated well. Spare trach at bedside. Will continue to monitor.
[2018-08-10 08:05] VITALS: BP 123/62
[2018-08-10] MEDS: ASPIRIN 81 MG TAB.CHEW GT SCH (08:22)
[2018-08-10] MEDS: VALPROIC ACID 250 MG/5 ML LIQUID UDC GT SCH ×2 (08:23→20:30)
[2018-08-10] MEDS: METOPROLOL TARTRATE 50 MG TABLET GT SCH ×2 (08:23→20:30)
[2018-08-10] MEDS: COD LIVER OIL/ZINC OXIDE OINT 113 GM TUBE TP SCH ×3 (08:23→17:04)
[2018-08-10] MEDS: PROTEIN SUPPLEMENT (PROSTAT) 30 ML LIQUID GT SCH ×2 (08:23→17:04)
[2018-08-10] MEDS: LEVETIRACETAM 500 MG/5 ML LIQUID UDC GT SCH ×2 (08:23→20:30)
[2018-08-10] MEDS: SODIUM HYPOCHLORITE 0.125% 473 ML BOTTLE TP SCH ×3 (08:23→17:04)
[2018-08-10] MEDS: ASCORBIC ACID 500 MG TABLET GT SCH ×2 (08:23→20:30)
[2018-08-10] MEDS: LOSARTAN POTASSIUM 50 MG TABLET GT SCH (08:23)
[2018-08-10] MEDS: ACETAMINOPHEN 325 MG TABLET-SA PATIENTS-PAIN ONLY PO SCH ×2 (08:23→20:31)
[2018-08-10] MEDS: LACOSAMIDE 200 MG TABLET XX SCH ×2 (08:24→21:41)
[2018-08-10] MEDS: HYDROGEN PEROXIDE 3% 118 ML BOTTLE TP SCH ×2 (08:24→21:41)
[2018-08-10] MEDS: GLUCERNA 1.2 1000ML LIQUID GT PRN (16:31)
[2018-08-10 20:17] VITALS: BP 108/55
[2018-08-10] MEDS: MULTIVITAMINS,THERAPEUTIC TABLET GT SCH (20:30)
[2018-08-10] MEDS: ATORVASTATIN 10 MG TABLET GT SCH (20:30)
[2018-08-10] MEDS: ARGINAID GT SCH (20:30)
[2018-08-10] MEDS: RIVAROXABAN 15 MG TABLET PO SCH (20:31)
--- NOTE | 2018-08-10 21:55 | NUR ---
PT ON CONT HT 50 VENT WITH SAME CURRENT VENT SETTINGS, PT DOES ASSIST AT TIMES, GOOD COUGH EFFORT, SUCTIONED LIGHT PALE YELL TINGE SECRETIONS, CHECK CUFF, CHANGE HME AND GUZMAN, NO VENT CHANGES MADE. ALL VENT ALARMS GOOD, PT STABLE . Emily STRAUSSP Addendum: 08/10/18 at 2159 by PAIGE HOWELL RT Amended: Links added.
--- NOTE | 2018-08-10 23:05 | NUR ---
continue on ampicvillin 1gm iv for sacral wound osteomyelitis, no adverse reaction noted.
[2018-08-11] MEDS: METOCLOPRAMIDE HCL 10 MG/10 ML UDC GT SCH ×4 (00:23→17:01)
[2018-08-11] MEDS: AMPICILLIN IV SCH ×4 (00:40→17:06)
[2018-08-11] MEDS: NS IV SCH ×4 (00:40→17:06)
[2018-08-11] MEDS: IPRATROPIUM BROMIDE 0.5 MG/2.5 ML NEBU NEB SCH ×4 (01:25→20:15)
[2018-08-11] MEDS: ALBUTEROL SULFATE 2.5 MG/3 ML NEBU NEB SCH ×4 (01:26→20:15)
[2018-08-11] MEDS: CHOLECALCIFEROL 1,000 UNIT TABLET GT SCH (05:28)
[2018-08-11] MEDS: FERROUS SULFATE 330 MG/7.5 ML UDC- FOR SA ONLY GT SCH ×3 (05:28→21:10)
[2018-08-11] MEDS: POLYVINYL ALCOHOL OPHT DROPS 15 ML BOTTLE OP SCH ×3 (05:29→21:10)
[2018-08-11] MEDS: FAMOTIDINE 40 MG TABLET GT SCH (05:32)
[2018-08-11] MEDS: BLOOD SUGAR DIAGNOSTIC 1 EACH STRIP VI SCH (05:32)
--- NOTE | 2018-08-11 07:41 | NUR ---
PT RECEIVED TRACH TO VENT ON HT-50 VENT, SETTINGS ARE AC 12, VT 500, PEEP +5, 2 LPM BLEED IN. SHILEY #6 TRACH IS PATENT AND SECURED. VENT PARAMETERS AND ALARMS CHECKED, ALARMS ARE AUDIBLE. IN-LINE TX TOLERATED WELL, NO ADVERSE REACTION NOTED. PT IS TOLERATING VENT SETTINGS WELL, NO RESP. DISTRESS NOTED AT THIS TIME. HME CHANGED. SUCTION PRN. AMBU-BAG AND BACK-UP TRACH AT BEDSIDE. WILL CONTINUE TO MONITOR.
[2018-08-11 08:05] VITALS: BP 114/61
[2018-08-11] MEDS: ASPIRIN 81 MG TAB.CHEW GT SCH (08:32)
[2018-08-11] MEDS: METOPROLOL TARTRATE 50 MG TABLET GT SCH ×2 (08:33→21:10)
[2018-08-11] MEDS: VALPROIC ACID 250 MG/5 ML LIQUID UDC GT SCH ×2 (08:33→21:09)
[2018-08-11] MEDS: LOSARTAN POTASSIUM 50 MG TABLET GT SCH (08:33)
[2018-08-11] MEDS: PROTEIN SUPPLEMENT (PROSTAT) 30 ML LIQUID GT SCH ×2 (08:33→17:06)
[2018-08-11] MEDS: ACETAMINOPHEN 325 MG TABLET-SA PATIENTS-PAIN ONLY PO SCH ×2 (08:33→21:10)
[2018-08-11] MEDS: LEVETIRACETAM 500 MG/5 ML LIQUID UDC GT SCH ×2 (08:33→21:09)
[2018-08-11] MEDS: ASCORBIC ACID 500 MG TABLET GT SCH ×2 (08:33→21:10)
[2018-08-11] MEDS: SODIUM HYPOCHLORITE 0.125% 473 ML BOTTLE TP SCH ×3 (08:34→17:00)
[2018-08-11] MEDS: HYDROGEN PEROXIDE 3% 118 ML BOTTLE TP SCH ×2 (08:35→21:10)
[2018-08-11] MEDS: LACOSAMIDE 200 MG TABLET XX SCH ×2 (08:35→21:10)
[2018-08-11] MEDS: COD LIVER OIL/ZINC OXIDE OINT 113 GM TUBE TP SCH ×3 (08:35→17:01)
[2018-08-11] MEDS: GLUCERNA 1.2 1000ML LIQUID GT PRN (14:18)
[2018-08-11 20:41] VITALS: BP 127/80
[2018-08-11] MEDS: RIVAROXABAN 15 MG TABLET PO SCH (21:00)
[2018-08-11] MEDS: ATORVASTATIN 10 MG TABLET GT SCH (21:09)
[2018-08-11] MEDS: MULTIVITAMINS,THERAPEUTIC TABLET GT SCH (21:10)
[2018-08-11] MEDS: ARGINAID GT SCH (21:10)
--- NOTE | 2018-08-11 22:59 | NUR ---
Afebrile, remains on Ampicillin IV for VRE of Sacral wound, no adverse reactions noted. on contact isolation precaution. traetment to sacral wound as ordered, cordova catheter is draining well to clear yellow urine, good daniel care rendered, kept clean and comfortable, will continue monitor. Addendum: 08/12/18 at 0044 by ROSINA HOFFMAN RN Addendum: On Ampicillin IV for sacral wound osteomylitis.
[2018-08-12] MEDS: AMPICILLIN IV SCH ×4 (00:42→17:02)
[2018-08-12] MEDS: NS IV SCH ×4 (00:42→17:02)
[2018-08-12] MEDS: METOCLOPRAMIDE HCL 10 MG/10 ML UDC GT SCH ×4 (00:48→18:08)
[2018-08-12] MEDS: ALBUTEROL SULFATE 2.5 MG/3 ML NEBU NEB SCH ×4 (02:09→19:10)
[2018-08-12] MEDS: IPRATROPIUM BROMIDE 0.5 MG/2.5 ML NEBU NEB SCH ×4 (02:09→19:09)
[2018-08-12] MEDS: CHOLECALCIFEROL 1,000 UNIT TABLET GT SCH (06:05)
[2018-08-12] MEDS: FERROUS SULFATE 330 MG/7.5 ML UDC- FOR SA ONLY GT SCH ×3 (06:05→21:25)
[2018-08-12] MEDS: BLOOD SUGAR DIAGNOSTIC 1 EACH STRIP VI SCH (06:06)
[2018-08-12] MEDS: POLYVINYL ALCOHOL OPHT DROPS 15 ML BOTTLE OP SCH ×3 (06:06→22:00)
[2018-08-12] MEDS: FAMOTIDINE 40 MG TABLET GT SCH (06:06)
--- NOTE | 2018-08-12 08:00 | NUR ---
PT RECEIVED ON CONTINUOUS VENT AC 12 VT 500 PEEP 5 FIO2 2LPM BLEED. IN LINE TX GIVEN WITH UD ALBUTEROL + UD ATROVENT ORDERED. TOLERATED TX WELL . SUCTION SMALL AMOUNT THICK PALE YELLOW SECRETIONS. TRACH IN PLACED AND SECURED WITH TRACH TIE. BACK UP TRACH AND AMBU BAG AT BEDSIDE. VENT CHECKED, ALARMS WORKING WELL AND AUDIBLE. NO SIGNS OF RESPIRATORY DISTRESS NOTED AT THIS TIME. PPE USED. WILL CONTINUE TO MONITOR.
[2018-08-12 08:04] VITALS: BP 122/69
[2018-08-12] MEDS: LOSARTAN POTASSIUM 50 MG TABLET GT SCH (08:13)
[2018-08-12] MEDS: ASPIRIN 81 MG TAB.CHEW GT SCH (08:13)
[2018-08-12] MEDS: VALPROIC ACID 250 MG/5 ML LIQUID UDC GT SCH ×2 (08:14→21:24)
[2018-08-12] MEDS: LEVETIRACETAM 500 MG/5 ML LIQUID UDC GT SCH ×2 (08:14→21:24)
[2018-08-12] MEDS: METOPROLOL TARTRATE 50 MG TABLET GT SCH ×2 (08:15→21:25)
[2018-08-12] MEDS: PROTEIN SUPPLEMENT (PROSTAT) 30 ML LIQUID GT SCH ×2 (08:15→16:40)
[2018-08-12] MEDS: ASCORBIC ACID 500 MG TABLET GT SCH ×2 (08:15→21:25)
[2018-08-12] MEDS: LACOSAMIDE 200 MG TABLET XX SCH ×2 (08:17→21:25)
[2018-08-12] MEDS: HYDROGEN PEROXIDE 3% 118 ML BOTTLE TP SCH ×2 (08:17→21:25)
[2018-08-12] MEDS: SODIUM HYPOCHLORITE 0.125% 473 ML BOTTLE TP SCH ×3 (08:17→16:40)
[2018-08-12] MEDS: COD LIVER OIL/ZINC OXIDE OINT 113 GM TUBE TP SCH ×3 (08:17→16:40)
[2018-08-12] MEDS: ACETAMINOPHEN 325 MG TABLET-SA PATIENTS-PAIN ONLY PO SCH ×2 (08:17→21:25)
[2018-08-12] MEDS: GLUCERNA 1.2 1000ML LIQUID GT PRN (11:01)
--- NOTE | 2018-08-12 19:12 | NUR ---
Received pt on HT-50 ventilator with the following settings of AC-12, Vt-500, PEEP+5, FIO2-2LPM bleed-in, trached with Shiley#6 DCT trach, which is in the place and secure. No distress noted. Airway care done, pt responded to physical stimuli. In-line HHN tx with 2.5mg Albuterol+0.5mg Atrovent given, pt tolerated well. HME changed. PPE used. Resus. bag and back up trach at bedside. Vent and alarms checked and reset.
[2018-08-12] MEDS: RIVAROXABAN 15 MG TABLET PO SCH (21:00)
[2018-08-12 21:10] VITALS: BP 126/77
[2018-08-12] MEDS: ATORVASTATIN 10 MG TABLET GT SCH (21:24)
[2018-08-12] MEDS: MULTIVITAMINS,THERAPEUTIC TABLET GT SCH (21:25)
[2018-08-12] MEDS: ARGINAID GT SCH (21:25)
[2018-08-13] MEDS: NS IV SCH ×4 (00:39→18:01)
[2018-08-13] MEDS: AMPICILLIN IV SCH ×4 (00:39→18:01)
[2018-08-13] MEDS: METOCLOPRAMIDE HCL 10 MG/10 ML UDC GT SCH ×4 (00:52→17:08)
[2018-08-13] MEDS: ALBUTEROL SULFATE 2.5 MG/3 ML NEBU NEB SCH ×4 (00:58→19:44)
[2018-08-13] MEDS: IPRATROPIUM BROMIDE 0.5 MG/2.5 ML NEBU NEB SCH ×4 (00:58→19:44)
[2018-08-13] MEDS: GLUCERNA 1.2 1000ML LIQUID GT PRN (03:41)
[2018-08-13] MEDS: FERROUS SULFATE 330 MG/7.5 ML UDC- FOR SA ONLY GT SCH ×3 (06:20→21:36)
[2018-08-13] MEDS: CHOLECALCIFEROL 1,000 UNIT TABLET GT SCH (06:20)
[2018-08-13] MEDS: FAMOTIDINE 40 MG TABLET GT SCH (06:21)
[2018-08-13] MEDS: POLYVINYL ALCOHOL OPHT DROPS 15 ML BOTTLE OP SCH ×3 (06:21→21:36)
[2018-08-13] MEDS: BLOOD SUGAR DIAGNOSTIC 1 EACH STRIP VI SCH (06:21)
[2018-08-13 08:05] VITALS: BP 97/57
[2018-08-13] MEDS: ASPIRIN 81 MG TAB.CHEW GT SCH (08:43)
[2018-08-13] MEDS: LOSARTAN POTASSIUM 50 MG TABLET GT SCH (08:49)
[2018-08-13] MEDS: METOPROLOL TARTRATE 50 MG TABLET GT SCH ×2 (08:50→21:34)
[2018-08-13] MEDS: VALPROIC ACID 250 MG/5 ML LIQUID UDC GT SCH ×2 (08:50→21:34)
[2018-08-13] MEDS: LEVETIRACETAM 500 MG/5 ML LIQUID UDC GT SCH ×2 (08:50→21:34)
[2018-08-13] MEDS: PROTEIN SUPPLEMENT (PROSTAT) 30 ML LIQUID GT SCH ×2 (08:51→17:08)
[2018-08-13] MEDS: ASCORBIC ACID 500 MG TABLET GT SCH ×2 (08:51→21:35)
[2018-08-13] MEDS: ACETAMINOPHEN 325 MG TABLET-SA PATIENTS-PAIN ONLY PO SCH ×2 (08:52→21:35)
[2018-08-13] MEDS: LACOSAMIDE 200 MG TABLET XX SCH ×2 (08:52→21:36)
[2018-08-13] MEDS: HYDROGEN PEROXIDE 3% 118 ML BOTTLE TP SCH ×2 (08:52→21:36)
[2018-08-13] MEDS: COD LIVER OIL/ZINC OXIDE OINT 113 GM TUBE TP SCH ×3 (08:52→17:08)
[2018-08-13] MEDS: SODIUM HYPOCHLORITE 0.125% 473 ML BOTTLE TP SCH ×3 (09:29→17:08)
[2018-08-13 20:08] VITALS: BP 113/60
[2018-08-13] MEDS: ATORVASTATIN 10 MG TABLET GT SCH (21:34)
[2018-08-13] MEDS: MULTIVITAMINS,THERAPEUTIC TABLET GT SCH (21:35)
[2018-08-13] MEDS: ARGINAID GT SCH (21:35)
[2018-08-13] MEDS: RIVAROXABAN 15 MG TABLET PO SCH (21:40)
[2018-08-14] MEDS: NS IV SCH ×4 (00:27→18:08)
[2018-08-14] MEDS: AMPICILLIN IV SCH ×4 (00:27→18:08)
[2018-08-14] MEDS: IPRATROPIUM BROMIDE 0.5 MG/2.5 ML NEBU NEB SCH ×4 (00:49→20:00)
[2018-08-14] MEDS: ALBUTEROL SULFATE 2.5 MG/3 ML NEBU NEB SCH ×4 (00:49→20:00)
--- NOTE | 2018-08-14 01:38 | NUR ---
continue on ampicillin 1gm iv for vre at sacral wound, no adverse reaction noted, continue on contact isolation.
[2018-08-14] MEDS: GLUCERNA 1.2 1000ML LIQUID GT PRN (02:00)
[2018-08-14] MEDS: CHOLECALCIFEROL 1,000 UNIT TABLET GT SCH (06:06)
[2018-08-14] MEDS: FERROUS SULFATE 330 MG/7.5 ML UDC- FOR SA ONLY GT SCH ×3 (06:06→22:14)
[2018-08-14] MEDS: FAMOTIDINE 40 MG TABLET GT SCH (06:06)
[2018-08-14] MEDS: METOCLOPRAMIDE HCL 10 MG/10 ML UDC GT SCH ×4 (06:06→17:06)
[2018-08-14] MEDS: POLYVINYL ALCOHOL OPHT DROPS 15 ML BOTTLE OP SCH ×3 (06:06→22:14)
[2018-08-14] MEDS: BLOOD SUGAR DIAGNOSTIC 1 EACH STRIP VI SCH (06:07)
[2018-08-14 08:06] VITALS: BP 116/66
[2018-08-14] MEDS: ASPIRIN 81 MG TAB.CHEW GT SCH (08:51)
[2018-08-14] MEDS: VALPROIC ACID 250 MG/5 ML LIQUID UDC GT SCH ×2 (08:52→21:00)
[2018-08-14] MEDS: LOSARTAN POTASSIUM 50 MG TABLET GT SCH (08:52)
[2018-08-14] MEDS: LEVETIRACETAM 500 MG/5 ML LIQUID UDC GT SCH ×2 (08:53→21:00)
[2018-08-14] MEDS: METOPROLOL TARTRATE 50 MG TABLET GT SCH ×2 (08:53→21:00)
[2018-08-14] MEDS: ASCORBIC ACID 500 MG TABLET GT SCH ×2 (08:54→21:00)
[2018-08-14] MEDS: PROTEIN SUPPLEMENT (PROSTAT) 30 ML LIQUID GT SCH ×2 (08:54→17:05)
[2018-08-14] MEDS: ACETAMINOPHEN 325 MG TABLET-SA PATIENTS-PAIN ONLY PO SCH ×2 (08:55→21:00)
[2018-08-14] MEDS: LACOSAMIDE 200 MG TABLET XX SCH ×2 (09:00→21:00)
[2018-08-14] MEDS: SODIUM HYPOCHLORITE 0.125% 473 ML BOTTLE TP SCH ×3 (09:27→17:06)
[2018-08-14] MEDS: HYDROGEN PEROXIDE 3% 118 ML BOTTLE TP SCH ×2 (09:28→21:00)
[2018-08-14] MEDS: COD LIVER OIL/ZINC OXIDE OINT 113 GM TUBE TP SCH ×3 (09:28→17:06)
--- NOTE | 2018-08-14 11:45 | NUR ---
CAMDEN met with patient's Zoya and informed her that the next IDT meeting for the patient is scheduled for 08/20/18 at 11am.
[2018-08-14 20:00] VITALS: BP 108/56
[2018-08-14] MEDS: MULTIVITAMINS,THERAPEUTIC TABLET GT SCH (21:00)
[2018-08-14] MEDS: RIVAROXABAN 15 MG TABLET PO SCH (21:00)
[2018-08-14] MEDS: ARGINAID GT SCH (21:00)
[2018-08-14] MEDS: ATORVASTATIN 10 MG TABLET GT SCH (21:00)
--- NOTE | 2018-08-14 21:48 | NUR ---
PT ON CONT HT 50 VENT WITH SHILEY TRACH IN PLACE AND SECURED, WITH SAME CURRENT VENT SETTINGS, PT DOES ASSIST AT TIMES, FAIR COUGH EFFORT, SUCTIONED LIGHT PALE YELL TINGE SECRETIONS, AND SUCTION MOUTH WITH PATRICK DUFF WELL, CHANGE HME AND CHECK CUFF, ALL VENT ALARMS GOOD, NO VENT CHANGES MADE, AMBU BAG AT BEDSIDE.Emily HOWELL RCP Addendum: 08/14/18 at 2151 by PAIGE HOWELL RT Amended: Links added.
--- NOTE | 2018-08-14 23:13 | NUR ---
continue on ampicillin 1 gm iv for vre on sacral wound, no adverse reaction noted.
[2018-08-15] MEDS: AMPICILLIN IV SCH ×4 (00:11→17:29)
[2018-08-15] MEDS: NS IV SCH ×4 (00:11→17:29)
[2018-08-15] MEDS: IPRATROPIUM BROMIDE 0.5 MG/2.5 ML NEBU NEB SCH ×4 (01:38→20:09)
[2018-08-15] MEDS: ALBUTEROL SULFATE 2.5 MG/3 ML NEBU NEB SCH ×4 (01:38→20:09)
[2018-08-15] MEDS: GLUCERNA 1.2 1000ML LIQUID GT PRN (02:00)
[2018-08-15] MEDS: FERROUS SULFATE 330 MG/7.5 ML UDC- FOR SA ONLY GT SCH ×3 (05:49→22:19)
[2018-08-15] MEDS: CHOLECALCIFEROL 1,000 UNIT TABLET GT SCH (05:50)
[2018-08-15] MEDS: BLOOD SUGAR DIAGNOSTIC 1 EACH STRIP VI SCH (05:50)
[2018-08-15] MEDS: METOCLOPRAMIDE HCL 10 MG/10 ML UDC GT SCH ×4 (05:50→18:09)
[2018-08-15] MEDS: POLYVINYL ALCOHOL OPHT DROPS 15 ML BOTTLE OP SCH ×3 (05:50→22:19)
[2018-08-15] MEDS: FAMOTIDINE 40 MG TABLET GT SCH (05:50)
[2018-08-15 08:00] VITALS: BP 110/64
--- NOTE | 2018-08-15 08:00 | NUR ---
PT RECEIVED ON CONTINUOUS VENT AC 12 VT 500 PEEP 5 FIO2 2LPM BLEED. TRACH IN PLACED AND SECURED WITH TRACH TIE. BACK UP TRACH AND AMBU BAG AT BEDSIDE. IN LINE TX GIVEN WITH UD ALBUTEROL + UD ATROVENT ORDERED. TOLERATED TX WELL . SUCTION SMALL AMOUNT THICK PALE YELLOW SECRETIONS. VENT CHECKED, ALARMS WORKING WELL AND AUDIBLE. NO SIGNS OF RESPIRATORY DISTRESS NOTED AT THIS TIME. PPE USED. WILL CONTINUE TO MONITOR.
[2018-08-15] MEDS: SODIUM HYPOCHLORITE 0.125% 473 ML BOTTLE TP SCH ×3 (09:00→17:28)
[2018-08-15] MEDS: HYDROGEN PEROXIDE 3% 118 ML BOTTLE TP SCH ×2 (09:00→21:00)
[2018-08-15] MEDS: COD LIVER OIL/ZINC OXIDE OINT 113 GM TUBE TP SCH ×3 (09:00→17:28)
[2018-08-15] MEDS: LACOSAMIDE 200 MG TABLET XX SCH ×2 (09:00→21:00)
[2018-08-15] MEDS: VALPROIC ACID 250 MG/5 ML LIQUID UDC GT SCH ×2 (09:58→21:00)
[2018-08-15] MEDS: LOSARTAN POTASSIUM 50 MG TABLET GT SCH (09:58)
[2018-08-15] MEDS: ASPIRIN 81 MG TAB.CHEW GT SCH (09:58)
[2018-08-15] MEDS: LEVETIRACETAM 500 MG/5 ML LIQUID UDC GT SCH ×2 (09:58→21:00)
[2018-08-15] MEDS: ASCORBIC ACID 500 MG TABLET GT SCH ×2 (09:59→21:00)
[2018-08-15] MEDS: PROTEIN SUPPLEMENT (PROSTAT) 30 ML LIQUID GT SCH ×2 (09:59→17:28)
[2018-08-15] MEDS: METOPROLOL TARTRATE 50 MG TABLET GT SCH ×2 (09:59→21:00)
[2018-08-15] MEDS: ACETAMINOPHEN 325 MG TABLET-SA PATIENTS-PAIN ONLY PO SCH ×2 (10:00→21:00)
--- NOTE | 2018-08-15 18:00 | NUR ---
SEEN BY WAYNE ROBERTS N.P.(SX) AND WITH PATIENCEO.
[2018-08-15 20:00] VITALS: BP 104/64
[2018-08-15] MEDS: RIVAROXABAN 15 MG TABLET PO SCH (21:00)
[2018-08-15] MEDS: ATORVASTATIN 10 MG TABLET GT SCH (21:00)
[2018-08-15] MEDS: ARGINAID GT SCH (21:00)
[2018-08-15] MEDS: MULTIVITAMINS,THERAPEUTIC TABLET GT SCH (21:00)
[2018-08-16] MEDS: NS IV SCH ×4 (00:16→16:57)
[2018-08-16] MEDS: AMPICILLIN IV SCH ×4 (00:16→16:57)
[2018-08-16] MEDS: ALBUTEROL SULFATE 2.5 MG/3 ML NEBU NEB SCH ×4 (01:46→20:04)
[2018-08-16] MEDS: IPRATROPIUM BROMIDE 0.5 MG/2.5 ML NEBU NEB SCH ×4 (01:46→20:04)
--- NOTE | 2018-08-16 05:37 | NUR ---
continue on ampicillin 1 gm iv for sacral wound vre, no adverse reaction noted.
[2018-08-16] MEDS: POLYVINYL ALCOHOL OPHT DROPS 15 ML BOTTLE OP SCH ×3 (05:56→21:54)
[2018-08-16] MEDS: FAMOTIDINE 40 MG TABLET GT SCH (05:56)
[2018-08-16] MEDS: FERROUS SULFATE 330 MG/7.5 ML UDC- FOR SA ONLY GT SCH ×3 (05:56→21:54)
[2018-08-16] MEDS: BLOOD SUGAR DIAGNOSTIC 1 EACH STRIP VI SCH (05:56)
[2018-08-16] MEDS: CHOLECALCIFEROL 1,000 UNIT TABLET GT SCH (05:56)
[2018-08-16] MEDS: METOCLOPRAMIDE HCL 10 MG/10 ML UDC GT SCH ×4 (05:56→17:17)
[2018-08-16 08:16] VITALS: BP 113/66
[2018-08-16] MEDS: ASPIRIN 81 MG TAB.CHEW GT SCH (08:40)
[2018-08-16] MEDS: LOSARTAN POTASSIUM 50 MG TABLET GT SCH (08:41)
[2018-08-16] MEDS: LEVETIRACETAM 500 MG/5 ML LIQUID UDC GT SCH ×2 (08:44→21:52)
[2018-08-16] MEDS: PROTEIN SUPPLEMENT (PROSTAT) 30 ML LIQUID GT SCH ×2 (08:44→17:17)
[2018-08-16] MEDS: ASCORBIC ACID 500 MG TABLET GT SCH ×2 (08:44→21:53)
[2018-08-16] MEDS: VALPROIC ACID 250 MG/5 ML LIQUID UDC GT SCH ×2 (08:44→21:52)
[2018-08-16] MEDS: ACETAMINOPHEN 325 MG TABLET-SA PATIENTS-PAIN ONLY PO SCH ×2 (08:46→21:54)
[2018-08-16] MEDS: COD LIVER OIL/ZINC OXIDE OINT 113 GM TUBE TP SCH ×3 (08:46→17:17)
[2018-08-16] MEDS: HYDROGEN PEROXIDE 3% 118 ML BOTTLE TP SCH ×2 (08:46→21:54)
[2018-08-16] MEDS: LACOSAMIDE 200 MG TABLET XX SCH ×2 (08:46→21:54)
[2018-08-16] MEDS: SODIUM HYPOCHLORITE 0.125% 473 ML BOTTLE TP SCH ×3 (08:46→17:17)
[2018-08-16] MEDS: METOPROLOL TARTRATE 50 MG TABLET GT SCH ×2 (08:49→21:00)
--- NOTE | 2018-08-16 09:30 | NUR ---
SEEN BY DR. ARNULFO ROCHA.
[2018-08-16 20:00] VITALS: BP 96/57
[2018-08-16] MEDS: RIVAROXABAN 15 MG TABLET PO SCH (21:00)
[2018-08-16] MEDS: ATORVASTATIN 10 MG TABLET GT SCH (21:52)
[2018-08-16] MEDS: ARGINAID GT SCH (21:53)
[2018-08-16] MEDS: MULTIVITAMINS,THERAPEUTIC TABLET GT SCH (21:53)
--- NOTE | 2018-08-16 23:06 | NUR ---
Afebrile, on Ampicillin IV for Sacral wound osteomylitis, no adverse reactions noted. On contact isolation for VRE of sacral wound. with ongoing treatment to sacral wound as ordered, turned and repositioned, kept clean and comfortable.cordova catheter draining well to yellow urine, good daniel care rendered, kept clean and comfortable.
[2018-08-17] MEDS: METOCLOPRAMIDE HCL 10 MG/10 ML UDC GT SCH ×5 (00:15→23:57)
[2018-08-17] MEDS: ALBUTEROL SULFATE 2.5 MG/3 ML NEBU NEB SCH ×5 (02:10→19:57)
[2018-08-17] MEDS: IPRATROPIUM BROMIDE 0.5 MG/2.5 ML NEBU NEB SCH ×5 (02:10→19:57)
[2018-08-17] MEDS: GLUCERNA 1.2 1000ML LIQUID GT PRN (02:55)
[2018-08-17] MEDS: AMPICILLIN IV SCH ×5 (05:53→17:26)
[2018-08-17] MEDS: NS IV SCH ×5 (05:53→17:26)
[2018-08-17] MEDS: FERROUS SULFATE 330 MG/7.5 ML UDC- FOR SA ONLY GT SCH ×3 (06:15→21:29)
[2018-08-17] MEDS: POLYVINYL ALCOHOL OPHT DROPS 15 ML BOTTLE OP SCH ×3 (06:15→21:29)
[2018-08-17] MEDS: FAMOTIDINE 40 MG TABLET GT SCH (06:15)
[2018-08-17] MEDS: CHOLECALCIFEROL 1,000 UNIT TABLET GT SCH (06:15)
[2018-08-17 07:44] VITALS: BP 127/63
[2018-08-17] MEDS: LOSARTAN POTASSIUM 50 MG TABLET GT SCH (08:39)
[2018-08-17] MEDS: ASPIRIN 81 MG TAB.CHEW GT SCH (08:39)
[2018-08-17] MEDS: METOPROLOL TARTRATE 50 MG TABLET GT SCH ×2 (08:40→21:29)
[2018-08-17] MEDS: ASCORBIC ACID 500 MG TABLET GT SCH ×2 (08:42→21:28)
[2018-08-17] MEDS: LEVETIRACETAM 500 MG/5 ML LIQUID UDC GT SCH ×2 (08:42→21:28)
[2018-08-17] MEDS: VALPROIC ACID 250 MG/5 ML LIQUID UDC GT SCH ×2 (08:42→21:28)
[2018-08-17] MEDS: PROTEIN SUPPLEMENT (PROSTAT) 30 ML LIQUID GT SCH ×2 (08:42→17:12)
[2018-08-17] MEDS: ACETAMINOPHEN 325 MG TABLET-SA PATIENTS-PAIN ONLY PO SCH ×2 (08:43→21:28)
[2018-08-17] MEDS: LACOSAMIDE 200 MG TABLET XX SCH ×2 (08:43→21:28)
[2018-08-17] MEDS: SODIUM HYPOCHLORITE 0.125% 473 ML BOTTLE TP SCH ×3 (08:43→17:12)
[2018-08-17] MEDS: HYDROGEN PEROXIDE 3% 118 ML BOTTLE TP SCH ×2 (08:43→21:28)
[2018-08-17] MEDS: COD LIVER OIL/ZINC OXIDE OINT 113 GM TUBE TP SCH ×3 (08:43→17:12)
[2018-08-17 20:00] VITALS: BP 109/54
[2018-08-17] MEDS: MULTIVITAMINS,THERAPEUTIC TABLET GT SCH (21:28)
[2018-08-17] MEDS: ARGINAID GT SCH (21:28)
[2018-08-17] MEDS: ATORVASTATIN 10 MG TABLET GT SCH (21:28)
[2018-08-17] MEDS: RIVAROXABAN 15 MG TABLET PO SCH (21:34)
[2018-08-18] MEDS: GLUCERNA 1.2 1000ML LIQUID GT PRN ×2 (01:07→22:45)
[2018-08-18] MEDS: ALBUTEROL SULFATE 2.5 MG/3 ML NEBU NEB SCH ×4 (01:11→19:08)
[2018-08-18] MEDS: IPRATROPIUM BROMIDE 0.5 MG/2.5 ML NEBU NEB SCH ×4 (01:11→19:08)
[2018-08-18] MEDS: POLYVINYL ALCOHOL OPHT DROPS 15 ML BOTTLE OP SCH ×3 (06:18→21:01)
[2018-08-18] MEDS: METOCLOPRAMIDE HCL 10 MG/10 ML UDC GT SCH ×3 (06:18→17:57)
[2018-08-18] MEDS: FERROUS SULFATE 330 MG/7.5 ML UDC- FOR SA ONLY GT SCH ×3 (06:18→21:01)
[2018-08-18] MEDS: CHOLECALCIFEROL 1,000 UNIT TABLET GT SCH (06:18)
[2018-08-18] MEDS: AMPICILLIN IV SCH ×5 (06:36→17:18)
[2018-08-18] MEDS: NS IV SCH ×5 (06:36→17:18)
[2018-08-18] MEDS: FAMOTIDINE 40 MG TABLET GT SCH (06:37)
[2018-08-18 08:03] VITALS: BP 131/58
[2018-08-18] MEDS: LOSARTAN POTASSIUM 50 MG TABLET GT SCH (09:43)
[2018-08-18] MEDS: ASPIRIN 81 MG TAB.CHEW GT SCH (09:43)
[2018-08-18] MEDS: VALPROIC ACID 250 MG/5 ML LIQUID UDC GT SCH ×2 (09:43→20:56)
[2018-08-18] MEDS: LEVETIRACETAM 500 MG/5 ML LIQUID UDC GT SCH ×2 (09:43→20:59)
[2018-08-18] MEDS: HYDROGEN PEROXIDE 3% 118 ML BOTTLE TP SCH ×2 (09:44→21:01)
[2018-08-18] MEDS: SODIUM HYPOCHLORITE 0.125% 473 ML BOTTLE TP SCH ×3 (09:44→17:57)
[2018-08-18] MEDS: ASCORBIC ACID 500 MG TABLET GT SCH ×2 (09:44→21:00)
[2018-08-18] MEDS: ACETAMINOPHEN 325 MG TABLET-SA PATIENTS-PAIN ONLY PO SCH ×3 (09:44→21:01)
[2018-08-18] MEDS: METOPROLOL TARTRATE 50 MG TABLET GT SCH ×2 (09:44→21:00)
[2018-08-18] MEDS: LACOSAMIDE 200 MG TABLET XX SCH ×2 (09:44→21:01)
[2018-08-18] MEDS: COD LIVER OIL/ZINC OXIDE OINT 113 GM TUBE TP SCH ×3 (09:44→17:57)
[2018-08-18] MEDS: PROTEIN SUPPLEMENT (PROSTAT) 30 ML LIQUID GT SCH ×2 (09:44→17:56)
[2018-08-18] MEDS: RIVAROXABAN 15 MG TABLET PO SCH (20:50)
[2018-08-18] MEDS: ATORVASTATIN 10 MG TABLET GT SCH (20:59)
[2018-08-18] MEDS: ARGINAID GT SCH (21:00)
[2018-08-18] MEDS: MULTIVITAMINS,THERAPEUTIC TABLET GT SCH (21:00)
--- NOTE | 2018-08-18 22:22 | NUR ---
Seen and examined by Dr. Garcia with no new order.
[2018-08-18 23:29] VITALS: BP 111/40
--- NOTE | 2018-08-18 23:59 | NUR ---
Afebrile, still on Ampicillin IV for osteomylitis of sacral wound, no adverse reactions noted. no respiratory distress noted. with ongoing treatment to sacral wound as ordered, on contact isolation precaution for VRE of the wound,elevated extremities d/t edema, elevated penis on a rolled towel d/t edema, cordova catheter is draining well to yellow urine, good daniel care rendered, turned and repositioned, kept clean and comfortable.
[2018-08-19] MEDS: NS IV SCH ×4 (00:29→18:00)
[2018-08-19] MEDS: AMPICILLIN IV SCH ×4 (00:29→18:00)
[2018-08-19] MEDS: METOCLOPRAMIDE HCL 10 MG/10 ML UDC GT SCH ×4 (00:32→17:39)
[2018-08-19] MEDS: ALBUTEROL SULFATE 2.5 MG/3 ML NEBU NEB SCH ×4 (01:12→19:32)
[2018-08-19] MEDS: IPRATROPIUM BROMIDE 0.5 MG/2.5 ML NEBU NEB SCH ×4 (01:12→19:32)
[2018-08-19] MEDS: CHOLECALCIFEROL 1,000 UNIT TABLET GT SCH (05:53)
[2018-08-19] MEDS: FAMOTIDINE 40 MG TABLET GT SCH (05:53)
[2018-08-19] MEDS: FERROUS SULFATE 330 MG/7.5 ML UDC- FOR SA ONLY GT SCH ×3 (05:53→21:19)
[2018-08-19] MEDS: POLYVINYL ALCOHOL OPHT DROPS 15 ML BOTTLE OP SCH ×3 (05:53→21:19)
[2018-08-19 08:30] VITALS: BP 108/49
[2018-08-19] MEDS: LOSARTAN POTASSIUM 50 MG TABLET GT SCH (09:00)
[2018-08-19] MEDS: VALPROIC ACID 250 MG/5 ML LIQUID UDC GT SCH ×2 (09:52→21:16)
[2018-08-19] MEDS: ASPIRIN 81 MG TAB.CHEW GT SCH (09:52)
[2018-08-19] MEDS: LEVETIRACETAM 500 MG/5 ML LIQUID UDC GT SCH ×2 (09:52→21:16)
[2018-08-19] MEDS: PROTEIN SUPPLEMENT (PROSTAT) 30 ML LIQUID GT SCH ×2 (09:53→17:39)
[2018-08-19] MEDS: ASCORBIC ACID 500 MG TABLET GT SCH ×2 (09:53→21:17)
[2018-08-19] MEDS: METOPROLOL TARTRATE 50 MG TABLET GT SCH ×2 (09:53→21:16)
[2018-08-19] MEDS: ACETAMINOPHEN 325 MG TABLET-SA PATIENTS-PAIN ONLY PO SCH ×2 (09:53→21:19)
[2018-08-19] MEDS: HYDROGEN PEROXIDE 3% 118 ML BOTTLE TP SCH ×2 (09:54→21:19)
[2018-08-19] MEDS: SODIUM HYPOCHLORITE 0.125% 473 ML BOTTLE TP SCH ×3 (09:54→17:39)
[2018-08-19] MEDS: COD LIVER OIL/ZINC OXIDE OINT 113 GM TUBE TP SCH ×3 (09:54→17:39)
[2018-08-19] MEDS: LACOSAMIDE 200 MG TABLET XX SCH ×2 (09:54→21:19)
--- NOTE | 2018-08-19 16:00 | NUR ---
SEEN BY AGUS ROCHA.
[2018-08-19 20:25] VITALS: BP 114/51
[2018-08-19] MEDS: ATORVASTATIN 10 MG TABLET GT SCH (21:16)
[2018-08-19] MEDS: MULTIVITAMINS,THERAPEUTIC TABLET GT SCH (21:17)
[2018-08-19] MEDS: ARGINAID GT SCH (21:20)
[2018-08-19] MEDS: RIVAROXABAN 15 MG TABLET PO SCH (21:21)
[2018-08-20] MEDS: METOCLOPRAMIDE HCL 10 MG/10 ML UDC GT SCH ×5 (00:14→23:47)
[2018-08-20] MEDS: NS IV SCH ×4 (00:14→18:00)
[2018-08-20] MEDS: AMPICILLIN IV SCH ×4 (00:14→18:00)
--- NOTE | 2018-08-20 01:04 | NUR ---
continue on ampicillin 1 gm for osteomyelitis on sacral wound, no adverse reaction noted.
[2018-08-20] MEDS: ALBUTEROL SULFATE 2.5 MG/3 ML NEBU NEB SCH ×4 (01:44→20:17)
[2018-08-20] MEDS: IPRATROPIUM BROMIDE 0.5 MG/2.5 ML NEBU NEB SCH ×4 (01:44→20:17)
[2018-08-20] MEDS: POLYVINYL ALCOHOL OPHT DROPS 15 ML BOTTLE OP SCH ×3 (05:05→21:49)
[2018-08-20] MEDS: CHOLECALCIFEROL 1,000 UNIT TABLET GT SCH (05:05)
[2018-08-20] MEDS: FERROUS SULFATE 330 MG/7.5 ML UDC- FOR SA ONLY GT SCH ×3 (05:05→21:49)
[2018-08-20] MEDS: FAMOTIDINE 40 MG TABLET GT SCH (05:41)
--- NOTE | 2018-08-20 08:00 | NUR ---
PT RECEIVED ON CONTINUOUS VENT AC 12 VT 500 PEEP 5 FIO2 2LPM BLEED. TRACH IN PLACED AND SECURED WITH TRACH TIE. BACK UP TRACH AND AMBU BAG AT BEDSIDE. IN LINE TX GIVEN WITH UD ALBUTEROL + UD ATROVENT TOLERATED. SUCTION SMALL AMOUNT THICK PALE YELLOW SECRETIONS. VENT CHECKED, ALARMS WORKING WELL AND AUDIBLE. NO SIGNS OF RESPIRATORY DISTRESS NOTED AT THIS TIME. PPE USED. WILL CONTINUE TO MONITOR.
[2018-08-20] MEDS: ASPIRIN 81 MG TAB.CHEW GT SCH (09:51)
--- NOTE | 2018-08-20 09:51 | NUR ---
PT. SEEN BY DR. SANDOVAL (NEUROLOGIST0 AND WITH NEW ORDERS CARRIED OUT.
[2018-08-20] MEDS: VALPROIC ACID 250 MG/5 ML LIQUID UDC GT SCH ×2 (09:52→20:49)
[2018-08-20] MEDS: LOSARTAN POTASSIUM 50 MG TABLET GT SCH (09:52)
[2018-08-20] MEDS: LEVETIRACETAM 500 MG/5 ML LIQUID UDC GT SCH ×2 (09:53→20:49)
[2018-08-20] MEDS: METOPROLOL TARTRATE 50 MG TABLET GT SCH ×2 (09:54→20:49)
[2018-08-20] MEDS: PROTEIN SUPPLEMENT (PROSTAT) 30 ML LIQUID GT SCH ×2 (09:54→17:43)
[2018-08-20] MEDS: COD LIVER OIL/ZINC OXIDE OINT 113 GM TUBE TP SCH ×3 (09:55→17:43)
[2018-08-20] MEDS: ACETAMINOPHEN 325 MG TABLET-SA PATIENTS-PAIN ONLY PO SCH ×2 (09:55→21:49)
[2018-08-20] MEDS: HYDROGEN PEROXIDE 3% 118 ML BOTTLE TP SCH ×2 (09:55→20:50)
[2018-08-20] MEDS: SODIUM HYPOCHLORITE 0.125% 473 ML BOTTLE TP SCH ×3 (09:55→17:43)
[2018-08-20] MEDS: ASCORBIC ACID 500 MG TABLET GT SCH ×2 (09:55→20:49)
[2018-08-20] MEDS: LACOSAMIDE 200 MG TABLET XX SCH ×2 (09:56→20:50)
--- NOTE | 2018-08-20 13:22 | NUR ---
INTERDISCIPLINARY PLAN OF CARE CONFERENCE was held today. Patient's Zoya was present at the meeting. Dr. Beltrán and the Interdisciplinary Team reviewed the current plan of care in details. RN reported on patient's medical condition, ongoing wound treatment, and on some changes/updates in medications. No major changes in condition were reported. See RN IDT conference notes. See also all other disciplines IDT notes and physician's progress notes for additional details. Zoya questions were addressed by the IDT team and by Dr. Beltrán, and Zoya expressed understanding and being content with the current plan of care.
--- NOTE | 2018-08-20 15:25 | NUR ---
PT. WAS EXAMINED BY WAYNE HILARIO) AND EXAMINIED SACRAL WOUND AND WITH NEW ORDER WAS CARRIED OUT.
--- NOTE | 2018-08-20 16:15 | NUR ---
Pharmacy Update from Today's 08/20/18 IDT Meeting Note: Pt admitted 05/20/18 from acute rehab for continuation of care after sudden cardiac arrest and subsequent anoxic brain injury. Pt is vent dependent, bedbound and developed seizures after cardiac arrest. Was treated for VAP, UTI, sepsis before transfer to [facility]: Temp 97.5 BP 114/51 HR 79 LABS: (from 07/29/18,no new labs) Wbc 5.5 H/H 8.1/25.2 Plt 155 Na 138 K 4.2 Cl 105 CO2 28 BUN/Scr 15/0.4 BS 114 Ca 8.4 MEDICATION USE REVIEWED: > Pt not on any anti-psych medications > Pt on Keppra 500mg q12h since 08/20/18, last calculated CrCl >130 ml/min, dose ok per renal fxn. > Pt on Vimpat 200mg q12h since admit 05/20/18, no seizures reported > Pt on Valproic acid 1000mg q12h since admit 05/20/18, no seizures at this time, Rx rec for baseline level, ordered 05/29/18 resulted 54 (50-100) within therapeutic range. No reported seizures > Pt on Cozaar 50mg daily since 05/20/18, Lopressor 50mg q12hr (increased from 25mg q12h on 05/21), and hydralazine 10mg PRN SBP >160. Hold parameters in effect. > Pt on famotidine 40mg daily for GI prophylaxis, ok per renal function. Remains on reglan 5mg q6h for continued gastroparesis maintenance treatment > Pt on xarelto 15mg daily since 06/03/18 for bilateral upper extremity DVT, last plt 155, ok. PRN MED USAGE: (July) Tylenol for pain/temp x1 Hydralazine used x0 Eastern used x2 NEW ORDERS NOTED: > Continues on ampicillin IV for sacral wound osteomyelitis til 08/30 > Keppra 1500mg q12h decreased to 1250mg q12h 08/06, then to 1000mg q12h 08/13, today decreased to 500mg q12h per neurology (in taper) Patient was reviewed and discussed at IDT meeting with no medication issues or concerns at this time. Continues on ampicillin IV with no SEs noted. Neurology currently in taper of keppra d/t stable condition. Will continue to follow
[2018-08-20] MEDS: ACETAMINOPHEN 650 MG/20 ML UDC- SA PATIENTS-PAIN ONLY GT PRN (17:44)
[2018-08-20] MEDS: GLUCERNA 1.2 1000ML LIQUID GT PRN (17:46)
[2018-08-20 20:25] VITALS: BP 160/52
[2018-08-20] MEDS: ARGINAID GT SCH (20:49)
[2018-08-20] MEDS: ATORVASTATIN 10 MG TABLET GT SCH (20:49)
[2018-08-20] MEDS: MULTIVITAMINS,THERAPEUTIC TABLET GT SCH (20:49)
[2018-08-20] MEDS: RIVAROXABAN 15 MG TABLET PO SCH (20:50)
--- NOTE | 2018-08-20 23:11 | NUR ---
PT ON CONT HT 50 VENT WITH SHILEY TRACH IN PLACE AND SECURED, WITH SAME CURRENT VENT SETTINGS, PT WITH MOSTLY CONTROLLED VENTILATION, SUCTION LIGHT PALE YELL TINGE SECRETIONS, AND SUCTION MOUTH, CHECK CUFF, CHANGE HME , ALL VENT ALARMS GOOD, NO VENT CHANGES MADE , AMBU BAG AT BEDSIDE.Emily STRAUSSP Addendum: 08/20/18 at 2323 by PAIGE HOWELL RT Amended: Links added.
[2018-08-21] MEDS: AMPICILLIN IV SCH ×4 (00:54→17:28)
[2018-08-21] MEDS: NS IV SCH ×4 (00:54→17:28)
[2018-08-21] MEDS: ALBUTEROL SULFATE 2.5 MG/3 ML NEBU NEB SCH ×4 (01:30→19:36)
[2018-08-21] MEDS: IPRATROPIUM BROMIDE 0.5 MG/2.5 ML NEBU NEB SCH ×4 (01:30→19:36)
[2018-08-21] MEDS: METOCLOPRAMIDE HCL 10 MG/10 ML UDC GT SCH ×3 (05:03→17:02)
[2018-08-21] MEDS: POLYVINYL ALCOHOL OPHT DROPS 15 ML BOTTLE OP SCH ×3 (05:03→22:12)
[2018-08-21] MEDS: FERROUS SULFATE 330 MG/7.5 ML UDC- FOR SA ONLY GT SCH ×3 (05:03→22:11)
[2018-08-21] MEDS: CHOLECALCIFEROL 1,000 UNIT TABLET GT SCH (05:03)
[2018-08-21] MEDS: FAMOTIDINE 40 MG TABLET GT SCH (05:33)
[2018-08-21 08:40] VITALS: BP 123/60
[2018-08-21] MEDS: METOPROLOL TARTRATE 50 MG TABLET GT SCH ×2 (09:00→21:00)
[2018-08-21] MEDS: LOSARTAN POTASSIUM 50 MG TABLET GT SCH (09:00)
[2018-08-21] MEDS: LACOSAMIDE 200 MG TABLET XX SCH ×2 (09:00→21:00)
[2018-08-21] MEDS: HYDROGEN PEROXIDE 3% 118 ML BOTTLE TP SCH ×2 (09:00→21:00)
[2018-08-21] MEDS: COD LIVER OIL/ZINC OXIDE OINT 113 GM TUBE TP SCH ×3 (09:00→16:55)
[2018-08-21] MEDS: ACETAMINOPHEN 325 MG TABLET-SA PATIENTS-PAIN ONLY PO SCH ×2 (09:00→21:00)
[2018-08-21] MEDS: ASCORBIC ACID 500 MG TABLET GT SCH ×2 (09:00→21:00)
[2018-08-21] MEDS: LEVETIRACETAM 500 MG/5 ML LIQUID UDC GT SCH ×2 (09:00→21:00)
[2018-08-21] MEDS: SODIUM HYPOCHLORITE 0.125% 473 ML BOTTLE TP SCH ×3 (09:00→16:55)
[2018-08-21] MEDS: VALPROIC ACID 250 MG/5 ML LIQUID UDC GT SCH ×2 (09:00→21:00)
[2018-08-21] MEDS: PROTEIN SUPPLEMENT (PROSTAT) 30 ML LIQUID GT SCH ×2 (09:00→16:55)
--- NOTE | 2018-08-21 09:52 | NUR ---
SEEN AND EXAMINED BY DR ARREDONDO WITH NEW ORDERS NOTED AND CARRIED OUT.
[2018-08-21] MEDS: ASPIRIN 81 MG TAB.CHEW GT SCH (09:57)
[2018-08-21] MEDS: NEOMY/BACITRA/POLYMYXIN B OINT UD PACKET TP SCH (10:29)
[2018-08-21] MEDS: GLUCERNA 1.2 1000ML LIQUID GT PRN (16:59)
[2018-08-21 20:22] VITALS: BP 144/74
[2018-08-21] MEDS: MULTIVITAMINS,THERAPEUTIC TABLET GT SCH (21:00)
[2018-08-21] MEDS: RIVAROXABAN 15 MG TABLET PO SCH (21:00)
[2018-08-21] MEDS: ATORVASTATIN 10 MG TABLET GT SCH (21:00)
[2018-08-21] MEDS: ARGINAID GT SCH (21:00)
[2018-08-22] MEDS: METOCLOPRAMIDE HCL 10 MG/10 ML UDC GT SCH ×4 (00:27→17:14)
[2018-08-22] MEDS: IPRATROPIUM BROMIDE 0.5 MG/2.5 ML NEBU NEB SCH ×4 (01:09→19:58)
[2018-08-22] MEDS: ALBUTEROL SULFATE 2.5 MG/3 ML NEBU NEB SCH ×4 (01:09→19:58)
[2018-08-22] MEDS: NS IV SCH ×5 (05:20→17:33)
[2018-08-22] MEDS: AMPICILLIN IV SCH ×5 (05:20→17:33)
[2018-08-22] MEDS: CHOLECALCIFEROL 1,000 UNIT TABLET GT SCH (06:12)
[2018-08-22] MEDS: POLYVINYL ALCOHOL OPHT DROPS 15 ML BOTTLE OP SCH ×3 (06:12→21:41)
[2018-08-22] MEDS: FERROUS SULFATE 330 MG/7.5 ML UDC- FOR SA ONLY GT SCH ×3 (06:12→21:40)
[2018-08-22] MEDS: FAMOTIDINE 40 MG TABLET GT SCH (06:12)
[2018-08-22 07:55] VITALS: BP 139/50
[2018-08-22] MEDS: ASPIRIN 81 MG TAB.CHEW GT SCH (08:32)
[2018-08-22] MEDS: VALPROIC ACID 250 MG/5 ML LIQUID UDC GT SCH ×2 (08:38→21:34)
[2018-08-22] MEDS: LEVETIRACETAM 500 MG/5 ML LIQUID UDC GT SCH ×2 (08:38→21:35)
[2018-08-22] MEDS: LOSARTAN POTASSIUM 50 MG TABLET GT SCH (08:38)
[2018-08-22] MEDS: METOPROLOL TARTRATE 50 MG TABLET GT SCH ×2 (08:41→21:37)
[2018-08-22] MEDS: PROTEIN SUPPLEMENT (PROSTAT) 30 ML LIQUID GT SCH ×2 (08:41→17:14)
[2018-08-22] MEDS: ASCORBIC ACID 500 MG TABLET GT SCH ×2 (08:41→21:39)
[2018-08-22] MEDS: COD LIVER OIL/ZINC OXIDE OINT 113 GM TUBE TP SCH ×3 (08:42→17:14)
[2018-08-22] MEDS: SODIUM HYPOCHLORITE 0.125% 473 ML BOTTLE TP SCH ×3 (08:42→17:14)
[2018-08-22] MEDS: HYDROGEN PEROXIDE 3% 118 ML BOTTLE TP SCH ×2 (08:42→21:40)
[2018-08-22] MEDS: ACETAMINOPHEN 325 MG TABLET-SA PATIENTS-PAIN ONLY PO SCH ×2 (08:42→21:40)
[2018-08-22] MEDS: LACOSAMIDE 200 MG TABLET XX SCH ×2 (08:43→21:40)
[2018-08-22] MEDS: NEOMY/BACITRA/POLYMYXIN B OINT UD PACKET TP SCH (08:43)
[2018-08-22] MEDS: GLUCERNA 1.2 1000ML LIQUID GT PRN (10:05)
--- NOTE | 2018-08-22 14:50 | NUR ---
CAMDEN assisted patient's Zoya with completing patient's [employer] Claim for Disability Insurance (DI) Benefits application. CAMDEN also met with Dr. Harper in order for him to complete the Physician's portion of the form. CAMDEN returned the completed copy to Zoya today, along with a copy of the list of patient's current medications. Zoya stated that she would submit the form to [employer]. A copy of the form was filed in patient's file in CAMDEN's office.
[2018-08-22 20:51] VITALS: BP 105/50
[2018-08-22] MEDS: RIVAROXABAN 15 MG TABLET PO SCH (21:29)
[2018-08-22] MEDS: ATORVASTATIN 10 MG TABLET GT SCH (21:36)
[2018-08-22] MEDS: ARGINAID GT SCH (21:39)
[2018-08-22] MEDS: MULTIVITAMINS,THERAPEUTIC TABLET GT SCH (21:39)
--- NOTE | 2018-08-22 23:03 | NUR ---
Continues on Ampicillin IV for Sacral wound osteomylitis, no adverse reactions noted, afebrile, on contact isolation for VRE of sacral wound.Treatment done to sacral wound as ordered. Fletcher catheter draining well to yellow urine, good daniel care rendered, turned and repositioned, kept clean and comfortable.
[2018-08-23] MEDS: METOCLOPRAMIDE HCL 10 MG/10 ML UDC GT SCH ×4 (00:10→17:07)
[2018-08-23] MEDS: NS IV SCH ×4 (00:16→17:09)
[2018-08-23] MEDS: AMPICILLIN IV SCH ×4 (00:16→17:09)
[2018-08-23] MEDS: ALBUTEROL SULFATE 2.5 MG/3 ML NEBU NEB SCH ×4 (02:02→19:20)
[2018-08-23] MEDS: IPRATROPIUM BROMIDE 0.5 MG/2.5 ML NEBU NEB SCH ×4 (02:02→19:20)
[2018-08-23] MEDS: GLUCERNA 1.2 1000ML LIQUID GT PRN (04:09)
[2018-08-23] MEDS: FERROUS SULFATE 330 MG/7.5 ML UDC- FOR SA ONLY GT SCH ×3 (05:19→21:33)
[2018-08-23] MEDS: POLYVINYL ALCOHOL OPHT DROPS 15 ML BOTTLE OP SCH ×3 (05:19→21:34)
[2018-08-23] MEDS: CHOLECALCIFEROL 1,000 UNIT TABLET GT SCH (05:19)
[2018-08-23] MEDS: FAMOTIDINE 40 MG TABLET GT SCH (06:30)
[2018-08-23 08:00] VITALS: BP 106/63
[2018-08-23] MEDS: ASPIRIN 81 MG TAB.CHEW GT SCH (08:41)
[2018-08-23] MEDS: LOSARTAN POTASSIUM 50 MG TABLET GT SCH (08:41)
[2018-08-23] MEDS: SODIUM HYPOCHLORITE 0.125% 473 ML BOTTLE TP SCH ×3 (08:42→16:45)
[2018-08-23] MEDS: LEVETIRACETAM 500 MG/5 ML LIQUID UDC GT SCH ×2 (08:42→21:30)
[2018-08-23] MEDS: VALPROIC ACID 250 MG/5 ML LIQUID UDC GT SCH ×2 (08:42→21:30)
[2018-08-23] MEDS: ACETAMINOPHEN 325 MG TABLET-SA PATIENTS-PAIN ONLY PO SCH ×2 (08:42→21:32)
[2018-08-23] MEDS: ASCORBIC ACID 500 MG TABLET GT SCH ×2 (08:42→21:32)
[2018-08-23] MEDS: PROTEIN SUPPLEMENT (PROSTAT) 30 ML LIQUID GT SCH ×2 (08:42→16:45)
[2018-08-23] MEDS: METOPROLOL TARTRATE 50 MG TABLET GT SCH ×2 (08:42→21:31)
[2018-08-23] MEDS: COD LIVER OIL/ZINC OXIDE OINT 113 GM TUBE TP SCH ×3 (08:43→16:45)
[2018-08-23] MEDS: HYDROGEN PEROXIDE 3% 118 ML BOTTLE TP SCH ×2 (08:43→21:32)
[2018-08-23] MEDS: LACOSAMIDE 200 MG TABLET XX SCH ×2 (08:43→21:33)
[2018-08-23] MEDS: NEOMY/BACITRA/POLYMYXIN B OINT UD PACKET TP SCH (08:43)
[2018-08-23 12:24] VITALS: BP 106/63
[2018-08-23 20:29] VITALS: BP 129/62
[2018-08-23] MEDS: ATORVASTATIN 10 MG TABLET GT SCH (21:30)
[2018-08-23] MEDS: ARGINAID GT SCH (21:31)
[2018-08-23] MEDS: MULTIVITAMINS,THERAPEUTIC TABLET GT SCH (21:32)
[2018-08-23] MEDS: RIVAROXABAN 15 MG TABLET PO SCH (21:33)
--- NOTE | 2018-08-23 23:49 | NUR ---
PT ON CONT HT 50 VENT WITH SHILEY # [address] AND SECURED, WITH SAME CURRENT VENT SETTINGS, PT DOES ASSIST AT TIMES, GOOD COUGH EFFORT, SUCTIONED LIGHT PALE YELL TINGE SECRETIONS, CHECK CUFF, CHANGE HME, ALL VENT ALARMS GOOD, NO VENT CHANGES MADE AT THIS TIME, AMBU BAG AT BEDSIDE, PT STABLE.Emily STRAUSSP Addendum: 08/23/18 at 2351 by PAIGE HOWELL RT Amended: Links added.
[2018-08-24] MEDS: NS IV SCH ×4 (00:04→18:33)
[2018-08-24] MEDS: AMPICILLIN IV SCH ×4 (00:04→18:33)
--- NOTE | 2018-08-24 00:10 | NUR ---
continue on ampicillin 1 gm iv for sacral wound osteomyelitis, no adverse reaction noted, afebrile.
[2018-08-24] MEDS: GLUCERNA 1.2 1000ML LIQUID GT PRN ×2 (01:24→23:00)
[2018-08-24] MEDS: IPRATROPIUM BROMIDE 0.5 MG/2.5 ML NEBU NEB SCH ×4 (01:49→19:46)
[2018-08-24] MEDS: ALBUTEROL SULFATE 2.5 MG/3 ML NEBU NEB SCH ×4 (01:49→19:46)
[2018-08-24] MEDS: METOCLOPRAMIDE HCL 10 MG/10 ML UDC GT SCH ×5 (05:36→23:00)
[2018-08-24] MEDS: FERROUS SULFATE 330 MG/7.5 ML UDC- FOR SA ONLY GT SCH ×3 (05:36→21:28)
[2018-08-24] MEDS: POLYVINYL ALCOHOL OPHT DROPS 15 ML BOTTLE OP SCH ×3 (05:37→21:28)
[2018-08-24] MEDS: CHOLECALCIFEROL 1,000 UNIT TABLET GT SCH (05:37)
[2018-08-24] MEDS: FAMOTIDINE 40 MG TABLET GT SCH (05:37)
[2018-08-24] MEDS: LOSARTAN POTASSIUM 50 MG TABLET GT SCH (09:00)
[2018-08-24] MEDS: LACOSAMIDE 200 MG TABLET XX SCH ×2 (09:05→21:27)
[2018-08-24] MEDS: ASPIRIN 81 MG TAB.CHEW GT SCH (09:28)
[2018-08-24] MEDS: VALPROIC ACID 250 MG/5 ML LIQUID UDC GT SCH ×2 (09:30→21:24)
[2018-08-24] MEDS: LEVETIRACETAM 500 MG/5 ML LIQUID UDC GT SCH ×2 (09:30→21:24)
[2018-08-24] MEDS: METOPROLOL TARTRATE 50 MG TABLET GT SCH ×2 (09:31→21:26)
[2018-08-24] MEDS: PROTEIN SUPPLEMENT (PROSTAT) 30 ML LIQUID GT SCH ×2 (09:31→16:29)
[2018-08-24] MEDS: ASCORBIC ACID 500 MG TABLET GT SCH ×2 (09:31→21:26)
[2018-08-24] MEDS: NEOMY/BACITRA/POLYMYXIN B OINT UD PACKET TP SCH (09:32)
[2018-08-24] MEDS: HYDROGEN PEROXIDE 3% 118 ML BOTTLE TP SCH ×2 (09:32→21:27)
[2018-08-24] MEDS: ACETAMINOPHEN 325 MG TABLET-SA PATIENTS-PAIN ONLY PO SCH ×2 (09:32→21:27)
[2018-08-24] MEDS: COD LIVER OIL/ZINC OXIDE OINT 113 GM TUBE TP SCH ×3 (10:00→16:29)
[2018-08-24] MEDS: SODIUM HYPOCHLORITE 0.125% 473 ML BOTTLE TP SCH ×3 (10:00→16:29)
[2018-08-24 12:20] VITALS: BP 106/62
--- NOTE | 2018-08-24 20:00 | NUR ---
Patient received on on Jose HT-50 settings A/C 12, VT 500, PEEP +5 and 2 LPM bleed in O2. No resp. distress noted. Shiley [address], patent and secure. Pt to be monitored throughout the shift, PRN SX and adm'd resp neb txs per MD orders. HT-50 alarm parameters have been checked and remain audible.
[2018-08-24 20:33] VITALS: BP 125/54
[2018-08-24] MEDS: RIVAROXABAN 15 MG TABLET PO SCH (21:22)
[2018-08-24] MEDS: ATORVASTATIN 10 MG TABLET GT SCH (21:24)
[2018-08-24] MEDS: MULTIVITAMINS,THERAPEUTIC TABLET GT SCH (21:26)
[2018-08-24] MEDS: ARGINAID GT SCH (21:26)
[2018-08-25] MEDS: AMPICILLIN IV SCH ×5 (00:17→23:19)
[2018-08-25] MEDS: NS IV SCH ×5 (00:17→23:19)
[2018-08-25] MEDS: ALBUTEROL SULFATE 2.5 MG/3 ML NEBU NEB SCH ×4 (00:50→19:08)
[2018-08-25] MEDS: IPRATROPIUM BROMIDE 0.5 MG/2.5 ML NEBU NEB SCH ×4 (00:50→19:08)
--- NOTE | 2018-08-25 01:00 | NUR ---
found pt bleeding from mouth, opened mouth and noticed right side of inner cheek skin tear and bleeding, mouth care done, lavaged with cold saline and pressure dressing applied.
--- NOTE | 2018-08-25 01:13 | NUR ---
continue on ampicillin 500mg iv for sacral wound osteomylitis, no adverse reaction noted, afebrile.
[2018-08-25] MEDS: POLYVINYL ALCOHOL OPHT DROPS 15 ML BOTTLE OP SCH ×3 (05:44→22:17)
[2018-08-25] MEDS: CHOLECALCIFEROL 1,000 UNIT TABLET GT SCH (05:44)
[2018-08-25] MEDS: FAMOTIDINE 40 MG TABLET GT SCH (05:44)
[2018-08-25] MEDS: FERROUS SULFATE 330 MG/7.5 ML UDC- FOR SA ONLY GT SCH ×3 (05:44→22:17)
[2018-08-25] MEDS: METOCLOPRAMIDE HCL 10 MG/10 ML UDC GT SCH ×3 (05:44→17:26)
--- NOTE | 2018-08-25 06:32 | NUR ---
104/49,71, afebrile, no further bleeding observed, no respiratory distress noted.
--- NOTE | 2018-08-25 07:30 | NUR ---
PATIENT IN BED, CONTINUE BLEEDING FROM RIGHT SIDE OF CHEEK AND LEFT SIDE OF TONGUE, COLD COMPRESS APPLIED TO BOTH SIDE OF MOUTH, RN ON CHARGE NOTIFIED. WILL CONTINUE MONITORING BLEEDING.
--- NOTE | 2018-08-25 07:57 | NUR ---
PT RECEIVED TRACH TO VENT ON HT-50 VENT, SETTINGS ARE AC 12, VT 500, PEEP +5, 2 LPM BLEED IN. SHILEY #6 TRACH IS PATENT AND SECURED. VENT PARAMETERS AND ALARMS CHECKED, ALARMS ARE AUDIBLE. IN-LINE TX TOLERATED WELL, NO ADVERSE REACTION NOTED. PT IS TOLERATING VENT SETTINGS WELL, NO RESP. DISTRESS NOTED AT THIS TIME. ORAL BLEEDING NOTED. LAVAGE AND SUCTION PRN. AMBU-BAG AND BACK-UP TRACH AT BEDSIDE. WILL CONTINUE TO MONITOR.
[2018-08-25 08:05] VITALS: BP 105/57
[2018-08-25] MEDS: ACETAMINOPHEN 325 MG TABLET-SA PATIENTS-PAIN ONLY PO SCH ×2 (08:30→21:00)
[2018-08-25] MEDS: ASPIRIN 81 MG TAB.CHEW GT SCH (09:00)
[2018-08-25] MEDS: LOSARTAN POTASSIUM 50 MG TABLET GT SCH (09:00)
[2018-08-25] MEDS: VALPROIC ACID 250 MG/5 ML LIQUID UDC GT SCH ×2 (09:24→21:00)
[2018-08-25] MEDS: LEVETIRACETAM 500 MG/5 ML LIQUID UDC GT SCH ×2 (09:24→21:00)
[2018-08-25] MEDS: ASCORBIC ACID 500 MG TABLET GT SCH ×2 (09:25→21:00)
[2018-08-25] MEDS: METOPROLOL TARTRATE 50 MG TABLET GT SCH ×2 (09:25→21:00)
[2018-08-25] MEDS: COD LIVER OIL/ZINC OXIDE OINT 113 GM TUBE TP SCH ×3 (09:25→17:26)
[2018-08-25] MEDS: HYDROGEN PEROXIDE 3% 118 ML BOTTLE TP SCH ×2 (09:25→21:00)
[2018-08-25] MEDS: LACOSAMIDE 200 MG TABLET XX SCH ×2 (09:25→21:00)
[2018-08-25] MEDS: NEOMY/BACITRA/POLYMYXIN B OINT UD PACKET TP SCH (09:25)
[2018-08-25] MEDS: SODIUM HYPOCHLORITE 0.125% 473 ML BOTTLE TP SCH ×3 (09:25→17:26)
[2018-08-25] MEDS: PROTEIN SUPPLEMENT (PROSTAT) 30 ML LIQUID GT SCH ×2 (09:25→17:25)
--- NOTE | 2018-08-25 16:00 | NUR ---
PATIENT CONTINUES BLEEDING, COLD COLD SALINE LAVAGE AND COLD COMPRESS PROVIDED TO STOP BLEEDING. ASPIRIN WAS HELD. WILL CONTINUE MONITORING BLEEDING.
[2018-08-25 20:30] VITALS: BP 96/37
--- NOTE | 2018-08-25 20:56 | NUR ---
Pt rec'd on on HT-50 settings AC 12, VT 500, PEEP +5 and 2 LPM bleed in O2. No resp. distress noted. Shiley [address], patent and secure. Pt to be monitored throughout the shift, PRN SX and adm'd resp neb txs per MD orders. HT-50 alarm parameters have been checked and remain audible.
[2018-08-25] MEDS: ATORVASTATIN 10 MG TABLET GT SCH (21:00)
[2018-08-25] MEDS: ARGINAID GT SCH (21:00)
[2018-08-25] MEDS: MULTIVITAMINS,THERAPEUTIC TABLET GT SCH (21:00)
[2018-08-25] MEDS: RIVAROXABAN 15 MG TABLET PO SCH (21:26)
[2018-08-25] MEDS: GLUCERNA 1.2 1000ML LIQUID GT PRN (22:44)
[2018-08-26] MEDS: IPRATROPIUM BROMIDE 0.5 MG/2.5 ML NEBU NEB SCH ×4 (00:55→20:14)
[2018-08-26] MEDS: ALBUTEROL SULFATE 2.5 MG/3 ML NEBU NEB SCH ×4 (00:55→20:14)
[2018-08-26] MEDS: AMPICILLIN IV SCH ×3 (05:24→17:03)
[2018-08-26] MEDS: NS IV SCH ×3 (05:24→17:03)
[2018-08-26] MEDS: METOCLOPRAMIDE HCL 10 MG/10 ML UDC GT SCH ×5 (05:55→23:25)
[2018-08-26] MEDS: CHOLECALCIFEROL 1,000 UNIT TABLET GT SCH (05:55)
[2018-08-26] MEDS: FAMOTIDINE 40 MG TABLET GT SCH (05:55)
[2018-08-26] MEDS: FERROUS SULFATE 330 MG/7.5 ML UDC- FOR SA ONLY GT SCH ×3 (05:55→22:00)
[2018-08-26] MEDS: POLYVINYL ALCOHOL OPHT DROPS 15 ML BOTTLE OP SCH ×3 (05:55→22:00)
[2018-08-26 07:33] LABS: BASOPHILS % (AUTO) 0.3 % (0.0-2.0); EOSINOPHILS # (AUTO) 0.1 K/uL (0.0-0.7); HEMATOCRIT 27.4 % (36.7-47.1); HEMOGLOBIN 8.9 g/dL (12.5-16.3); LYMPHOCYTES # (AUTO) 0.9 K/uL (20.0-40.0); LYMPHOCYTES % (AUTO) 15.1 % (20.5-51.5); MEAN CORPUSCULAR HEMOGLOBIN 26.9 uug (23.8-33.4); MEAN CORPUSCULAR HGB CONC 33 g/dL (32.5-36.3); MEAN CORPUSCULAR VOLUME 82.8 fL (73.0-96.2); MONOCYTES # (AUTO) 0.5 K/uL (2.0-10.0); MONOCYTES % (AUTO) 8.8 % (0.0-11.0); NEUTROPHILS # (AUTO) 4.4 K/uL (1.8-8.9); NEUTROPHILS % (AUTO) 73.8 % (38.5-71.5); PLATELET COUNT (AUTO) 124 K/uL (152-348); RED BLOOD CELL COUNT(AUTO) 3.31 MIL/uL (4.06-5.63)
[2018-08-26 07:53] LABS: ALANINE AMINOTRANSFERASE 225 U/L (16-63); ALKALINE PHOSPHATASE 151 U/L (50-136); ASPARTATE AMINOTRANSFERASE 123 U/L (15-37); BILIRUBIN,TOTAL 0.3 mg/dL (0.2-1.0); CARBON DIOXIDE 30 mmol/L (21-32); CHLORIDE 104 mmol/L (98-107); CREATININE 0.5 mg/dL (0.6-1.3); GLUCOSE 111 mg/dL (74-106); PHOSPHOROUS 5.1 mg/dL (2.5-4.9); POTASSIUM 4.4 mmol/L (3.5-5.1); UREA NITROGEN, BLOOD 19 mg/dL (7-18)
--- NOTE | 2018-08-26 08:00 | NUR ---
PT RECEIVED ON CONTINUOUS VENT AC 12 VT 500 PEEP 5 FIO2 2LPM BLEED. TRACH IN PLACED AND SECURED WITH TRACH TIE. BACK UP TRACH AND AMBU BAG AT BEDSIDE. IN LINE TX GIVEN WITH UD ALBUTEROL + UD ATROVENT TOLERATED. SUCTION ORALLY MODERATE AMOUNT THICK/THIN BLOODY SECRETIONS, SUCTION TRACH TRACE AMOUNT THICK PALE YELLOW SECRETIONS. NURSE AWARE OF BLOODY MOUTH SECRETIONS. VENT CHECKED, ALARMS WORKING WELL AND AUDIBLE. NO SIGNS OF RESPIRATORY DISTRESS NOTED AT THIS TIME. PPE USED. WILL CONTINUE TO MONITOR.
[2018-08-26 08:05] VITALS: BP 123/69
[2018-08-26 08:18] LABS: BAND % (MANUAL) 3 % (0-10); EOSINOPHILS % (MANUAL) 4 % (0-8); LYMPHOCYTES % (MANUAL) 17 % (20-40); MONOCYTES % (MANUAL) 8 % (2-10); NEUTROPHILS % (MANUAL) 68 % (42-75)
[2018-08-26] MEDS: ASPIRIN 81 MG TAB.CHEW GT SCH (08:19)
[2018-08-26] MEDS: LOSARTAN POTASSIUM 50 MG TABLET GT SCH (08:20)
[2018-08-26] MEDS: VALPROIC ACID 250 MG/5 ML LIQUID UDC GT SCH ×2 (08:21→21:00)
[2018-08-26] MEDS: LEVETIRACETAM 500 MG/5 ML LIQUID UDC GT SCH ×2 (08:21→21:00)
[2018-08-26] MEDS: METOPROLOL TARTRATE 50 MG TABLET GT SCH ×2 (08:23→21:00)
[2018-08-26] MEDS: ASCORBIC ACID 500 MG TABLET GT SCH ×2 (08:23→21:00)
[2018-08-26] MEDS: PROTEIN SUPPLEMENT (PROSTAT) 30 ML LIQUID GT SCH ×2 (08:23→17:31)
[2018-08-26] MEDS: ACETAMINOPHEN 325 MG TABLET-SA PATIENTS-PAIN ONLY PO SCH ×3 (08:27→21:00)
[2018-08-26] MEDS: NEOMY/BACITRA/POLYMYXIN B OINT UD PACKET TP SCH (08:27)
[2018-08-26] MEDS: HYDROGEN PEROXIDE 3% 118 ML BOTTLE TP SCH ×2 (08:27→21:00)
[2018-08-26] MEDS: COD LIVER OIL/ZINC OXIDE OINT 113 GM TUBE TP SCH ×3 (08:27→17:31)
[2018-08-26] MEDS: SODIUM HYPOCHLORITE 0.125% 473 ML BOTTLE TP SCH ×3 (08:27→17:31)
[2018-08-26] MEDS: LACOSAMIDE 200 MG TABLET XX SCH ×2 (08:28→21:00)
--- NOTE | 2018-08-26 13:30 | NUR ---
Seen by Toyin STEVENS, notified of labs results ast 123, alt 225, new orders given to hold Lipitor, d/c tylenol, cbc,cmp on 09/02/18.
[2018-08-26 20:10] VITALS: BP 112/46
--- NOTE | 2018-08-26 20:14 | NUR ---
Trached patient endorsed on HT-50 ventilator with ordered settings of AC 12,Vt 500, +5, 2LpmO2 bleed in. Kamilaley 6 DCT: REGISTER OF WILLS used for cuff assessment/inflation. SXN PRN; small amounts of thick pale yellow secretions. No SOB or respiratory distress noted. Inline HHN treatment administered as ordered and tolerated well. Spare trach at bedside. Will continue to monitor throughout shift.
[2018-08-26] MEDS: ARGINAID GT SCH (21:00)
[2018-08-26] MEDS: MULTIVITAMINS,THERAPEUTIC TABLET GT SCH (21:00)
[2018-08-26] MEDS: RIVAROXABAN 15 MG TABLET PO SCH (21:00)
--- NOTE | 2018-08-26 22:50 | NUR ---
Afebrile, continues on Ampicillin IV for VRE of sacral wound, no adverse reactions noted. no respiratory distress noted. With ongoing treatment to sacral wound as ordered,cordova catheter is draining well to yellow urine, good daniel care rendered, turned and repositioned, kept clean and comfortable, will continue monitor.
[2018-08-27] MEDS: IPRATROPIUM BROMIDE 0.5 MG/2.5 ML NEBU NEB SCH ×4 (01:43→19:08)
[2018-08-27] MEDS: ALBUTEROL SULFATE 2.5 MG/3 ML NEBU NEB SCH ×4 (01:44→19:08)
[2018-08-27] MEDS: AMPICILLIN IV SCH ×5 (05:42→17:58)
[2018-08-27] MEDS: NS IV SCH ×5 (05:42→17:58)
[2018-08-27] MEDS: METOCLOPRAMIDE HCL 10 MG/10 ML UDC GT SCH ×2 (05:48→12:55)
[2018-08-27] MEDS: CHOLECALCIFEROL 1,000 UNIT TABLET GT SCH (05:48)
[2018-08-27] MEDS: FERROUS SULFATE 330 MG/7.5 ML UDC- FOR SA ONLY GT SCH ×3 (05:48→21:31)
[2018-08-27] MEDS: FAMOTIDINE 40 MG TABLET GT SCH (05:49)
[2018-08-27] MEDS: POLYVINYL ALCOHOL OPHT DROPS 15 ML BOTTLE OP SCH ×3 (05:49→21:32)
--- NOTE | 2018-08-27 08:00 | NUR ---
PT RECEIVED ON SEMI FOWLERS POSITION , REMAIN ON CONTINUOUS VENT AC 12 VT 500 PEEP 5 FIO2 2LPM BLEED. SUCTION ORALLY WITH MINIMAL BLEEDING NOTED. TRACH IN PLACED AND SECURED WITH TRACH TIE. BACK UP TRACH AND AMBU BAG AT BEDSIDE. IN LINE TX GIVEN WITH UD ALBUTEROL + UD ATROVENT TOLERATED. HME CHANGED. SUCTION TRACH TRACE AMOUNT THICK PALE YELLOW SECRETIONS. VENT CHECKED, ALARMS WORKING WELL AND AUDIBLE. NO SIGNS OF RESPIRATORY DISTRESS NOTED AT THIS TIME. PPE USED. WILL CONTINUE TO MONITOR.
[2018-08-27 08:06] VITALS: BP 107/59
[2018-08-27] MEDS: ASPIRIN 81 MG TAB.CHEW GT SCH (08:51)
[2018-08-27] MEDS: LEVETIRACETAM 500 MG/5 ML LIQUID UDC GT SCH ×2 (08:53→21:26)
[2018-08-27] MEDS: LOSARTAN POTASSIUM 50 MG TABLET GT SCH (08:53)
[2018-08-27] MEDS: METOPROLOL TARTRATE 50 MG TABLET GT SCH ×2 (08:54→21:27)
[2018-08-27] MEDS: PROTEIN SUPPLEMENT (PROSTAT) 30 ML LIQUID GT SCH ×2 (08:55→17:23)
[2018-08-27] MEDS: ASCORBIC ACID 500 MG TABLET GT SCH ×2 (08:55→21:31)
[2018-08-27] MEDS: LACOSAMIDE 200 MG TABLET XX SCH ×2 (08:56→21:31)
[2018-08-27] MEDS: HYDROGEN PEROXIDE 3% 118 ML BOTTLE TP SCH ×2 (08:56→21:31)
[2018-08-27] MEDS: NEOMY/BACITRA/POLYMYXIN B OINT UD PACKET TP SCH (08:56)
[2018-08-27] MEDS: ACETAMINOPHEN 325 MG TABLET-SA PATIENTS-PAIN ONLY PO SCH (08:56)
--- NOTE | 2018-08-27 10:37 | NUR ---
SEEN AND EXAMINED BY DR. SANDOVAL (NEUROLOGIST) AND WITH NEW ORDER CARRIED OUT.
--- NOTE | 2018-08-27 11:00 | NUR ---
SACRAL WOUND EVALUATION WAS DONE ,NOTED WITH NO FOUL ODOR AND BUT OBSERVED WITH VISIBLE WAY LESS AMOUNT OF DARK SEROSANGUINEOUS DRAINAGE FROM 12 OCLOCK AREA AND WAYNE ROBERTS N.P(SX) WAS PAGED RE:DUE OF WOUND EVALUATION,IN MAIN TIME LOCAL TX ORDER WAS REEVALUATED.
[2018-08-27] MEDS ORDERED: SODIUM HYPOCHLORITE 0.125% 473 ML BOTTLE TP PRN (16:00)
[2018-08-27] MEDS ORDERED: COD LIVER OIL/ZINC OXIDE OINT 113 GM TUBE TP PRN (16:00)
--- NOTE | 2018-08-27 16:30 | NUR ---
ORDER FOR TYLENOL WAS CLARIFIED FROM [facility] FOLLOW: TO D/C TYLENOL AND GIVE PRN NORCO ORDERED TILL FURTHER ORDERS AND NEW LABS.
[2018-08-27] MEDS: SODIUM HYPOCHLORITE 0.125% 473 ML BOTTLE TP SCH (17:23)
[2018-08-27] MEDS: COD LIVER OIL/ZINC OXIDE OINT 113 GM TUBE TP SCH (17:24)
[2018-08-27 20:32] VITALS: BP 119/38
[2018-08-27] MEDS: MULTIVITAMINS,THERAPEUTIC TABLET GT SCH (21:31)
[2018-08-27] MEDS: ARGINAID GT SCH (21:31)
[2018-08-27] MEDS: RIVAROXABAN 15 MG TABLET PO SCH (21:31)
--- NOTE | 2018-08-27 23:06 | NUR ---
on Ampicillin IV for VRE of sacral wound, no adverse reactions noted. no respiratory distress noted. With ongoing treatment to sacral wound as ordered,cordova catheter is draining well to yellow urine, good daniel care rendered, turned and repositioned, kept clean and comfortable, will continue monitor. Addendum: 08/28/18 at 0157 by ROSINA HOFFMAN RN Still with bleeding from mouth d/t patient bit the side of her Right inner cheek. Good mouth care done, Kept patient clean and comfortable, will continue monitor at this time.
[2018-08-28] MEDS: NS IV SCH ×4 (00:22→17:04)
[2018-08-28] MEDS: AMPICILLIN IV SCH ×4 (00:22→17:04)
[2018-08-28] MEDS: ALBUTEROL SULFATE 2.5 MG/3 ML NEBU NEB SCH ×4 (00:58→19:59)
[2018-08-28] MEDS: IPRATROPIUM BROMIDE 0.5 MG/2.5 ML NEBU NEB SCH ×4 (00:58→19:59)
[2018-08-28] MEDS: CHOLECALCIFEROL 1,000 UNIT TABLET GT SCH (05:51)
[2018-08-28] MEDS: FERROUS SULFATE 330 MG/7.5 ML UDC- FOR SA ONLY GT SCH ×3 (05:51→21:09)
[2018-08-28] MEDS: POLYVINYL ALCOHOL OPHT DROPS 15 ML BOTTLE OP SCH ×3 (05:51→21:09)
[2018-08-28] MEDS: FAMOTIDINE 40 MG TABLET GT SCH (05:51)
--- NOTE | 2018-08-28 06:27 | NUR ---
It was reported during endorsement that patient have a blood shot eye on the outer corner of left eye. On assessment , Left eye outer corner is red, skin is intact, no discharge or drainage noted, good eye care done, will continue monitor.
--- NOTE | 2018-08-28 07:27 | NUR ---
PT RECEIVED TRACH TO VENT ON HT-50 VENT, SETTINGS ARE AC 12, VT 500, PEEP +5, 2 LPM BLEED IN. SHILEY #6 TRACH IS PATENT AND SECURED. VENT PARAMETERS AND ALARMS CHECKED, ALARMS ARE AUDIBLE. IN-LINE TX TOLERATED WELL, NO ADVERSE REACTION NOTED. PT IS TOLERATING VENT SETTINGS WELL, NO RESP. DISTRESS NOTED AT THIS TIME. SUCTION PRN. AMBU-BAG AND BACK-UP TRACH AT BEDSIDE. WILL CONTINUE TO MONITOR.
[2018-08-28 08:05] VITALS: BP 103/60
[2018-08-28] MEDS: LOSARTAN POTASSIUM 50 MG TABLET GT SCH (09:00)
[2018-08-28] MEDS: SODIUM HYPOCHLORITE 0.125% 473 ML BOTTLE TP SCH ×3 (09:05→16:59)
[2018-08-28] MEDS: COD LIVER OIL/ZINC OXIDE OINT 113 GM TUBE TP SCH ×3 (09:05→16:59)
[2018-08-28] MEDS: HYDROGEN PEROXIDE 3% 118 ML BOTTLE TP SCH ×2 (09:05→20:58)
[2018-08-28] MEDS: NEOMY/BACITRA/POLYMYXIN B OINT UD PACKET TP SCH (09:12)
[2018-08-28] MEDS: LACOSAMIDE 200 MG TABLET XX SCH ×2 (09:16→20:58)
[2018-08-28] MEDS: LEVETIRACETAM 500 MG/5 ML LIQUID UDC GT SCH ×2 (09:18→20:56)
[2018-08-28] MEDS: ASPIRIN 81 MG TAB.CHEW GT SCH (09:18)
[2018-08-28] MEDS: METOPROLOL TARTRATE 50 MG TABLET GT SCH ×2 (09:19→20:56)
[2018-08-28] MEDS: ASCORBIC ACID 500 MG TABLET GT SCH ×2 (09:21→20:57)
[2018-08-28] MEDS: PROTEIN SUPPLEMENT (PROSTAT) 30 ML LIQUID GT SCH ×2 (09:21→17:01)
[2018-08-28] MEDS: GLUCERNA 1.2 1000ML LIQUID GT PRN (16:59)
--- NOTE | 2018-08-28 19:00 | NUR ---
Seen and examined by Dr Beltrán with new orders noted and carried out,left message to Jacob to evaluate the pt ,the antibiotics for osteomilitis is almost completed.
[2018-08-28 20:00] VITALS: BP 115/61
--- NOTE | 2018-08-28 20:10 | NUR ---
Seen and examined by TEODORO James for ID consult with no new order at this time.
[2018-08-28] MEDS: ARGINAID GT SCH (20:56)
[2018-08-28] MEDS: MULTIVITAMINS,THERAPEUTIC TABLET GT SCH (20:57)
[2018-08-28] MEDS: RIVAROXABAN 15 MG TABLET PO SCH (20:58)
[2018-08-29] MEDS: NS IV SCH ×4 (00:17→18:39)
[2018-08-29] MEDS: AMPICILLIN IV SCH ×4 (00:17→18:39)
--- NOTE | 2018-08-29 01:12 | NUR ---
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 Afebrile, no bleeding from mouth or trach noted at this time, good mouth care done, no respiratory distress noted. On contact isolation precaution for VRE of sacral wound, treatment done to sacral wound as ordered, cordova catheter is draining well to yellow urine, good daniel care rendered, kept patient clean and comfortable, will continue monitor.
[2018-08-29] MEDS: ALBUTEROL SULFATE 2.5 MG/3 ML NEBU NEB SCH ×4 (02:17→19:35)
[2018-08-29] MEDS: IPRATROPIUM BROMIDE 0.5 MG/2.5 ML NEBU NEB SCH ×4 (02:17→19:35)
[2018-08-29] MEDS: CHOLECALCIFEROL 1,000 UNIT TABLET GT SCH (05:55)
[2018-08-29] MEDS: POLYVINYL ALCOHOL OPHT DROPS 15 ML BOTTLE OP SCH ×3 (05:55→21:42)
[2018-08-29] MEDS: FAMOTIDINE 40 MG TABLET GT SCH (05:55)
[2018-08-29] MEDS: FERROUS SULFATE 330 MG/7.5 ML UDC- FOR SA ONLY GT SCH ×3 (05:55→21:42)
[2018-08-29 08:00] VITALS: BP 117/65
[2018-08-29] MEDS: ASPIRIN 81 MG TAB.CHEW GT SCH (08:59)
[2018-08-29] MEDS: LEVETIRACETAM 500 MG/5 ML LIQUID UDC GT SCH ×2 (09:13→21:41)
[2018-08-29] MEDS: LOSARTAN POTASSIUM 50 MG TABLET GT SCH (09:13)
[2018-08-29] MEDS: ASCORBIC ACID 500 MG TABLET GT SCH ×2 (09:14→21:41)
[2018-08-29] MEDS: PROTEIN SUPPLEMENT (PROSTAT) 30 ML LIQUID GT SCH ×2 (09:14→17:06)
[2018-08-29] MEDS: HYDROGEN PEROXIDE 3% 118 ML BOTTLE TP SCH ×2 (09:14→21:42)
[2018-08-29] MEDS: METOPROLOL TARTRATE 50 MG TABLET GT SCH ×2 (09:14→21:41)
[2018-08-29] MEDS: SODIUM HYPOCHLORITE 0.125% 473 ML BOTTLE TP SCH ×3 (09:14→17:06)
[2018-08-29] MEDS: COD LIVER OIL/ZINC OXIDE OINT 113 GM TUBE TP SCH ×3 (09:14→17:06)
[2018-08-29] MEDS: NEOMY/BACITRA/POLYMYXIN B OINT UD PACKET TP SCH (09:15)
[2018-08-29] MEDS: LACOSAMIDE 200 MG TABLET XX SCH ×2 (09:16→21:42)
[2018-08-29] MEDS: GLUCERNA 1.2 1000ML LIQUID GT PRN (09:17)
[2018-08-29 20:00] VITALS: BP 115/46
[2018-08-29] MEDS: RIVAROXABAN 15 MG TABLET PO SCH (21:00)
[2018-08-29] MEDS: MULTIVITAMINS,THERAPEUTIC TABLET GT SCH (21:41)
[2018-08-29] MEDS: ARGINAID GT SCH (21:41)
[2018-08-30] MEDS: NS IV SCH ×5 (00:13→23:49)
[2018-08-30] MEDS: AMPICILLIN IV SCH ×5 (00:13→23:49)
[2018-08-30] MEDS: IPRATROPIUM BROMIDE 0.5 MG/2.5 ML NEBU NEB SCH ×4 (01:23→19:32)
[2018-08-30] MEDS: ALBUTEROL SULFATE 2.5 MG/3 ML NEBU NEB SCH ×4 (01:23→19:32)
--- NOTE | 2018-08-30 01:36 | NUR ---
PT ON CONT HT 50 VENT [address] AND SECURED, WITH SAME CURRENT VENT SETTINGS, PT DOES ASSIST AT TIMES, WITH GOOD COUGH EFFORT, SUCTIONED LIGHT PALE YELL TINGE SECRETIONS, CHANGE HME AND CHECK CUFF, ALL VENT ALARMS GOOD, NO VENT CHANGES MADE AT THIS TIME, PT STABLE . Emily STRAUSSP Addendum: 08/30/18 at 0138 by PAIGE HOWELL RT Amended: Links added.
--- NOTE | 2018-08-30 02:02 | NUR ---
continue on ampicillin 1 gm iv for sacral wound osteomyelitis, afebrile, no adverse reaction noted.
[2018-08-30] MEDS: CHOLECALCIFEROL 1,000 UNIT TABLET GT SCH (05:12)
[2018-08-30] MEDS: POLYVINYL ALCOHOL OPHT DROPS 15 ML BOTTLE OP SCH ×3 (05:13→22:00)
[2018-08-30] MEDS: FERROUS SULFATE 330 MG/7.5 ML UDC- FOR SA ONLY GT SCH ×3 (05:13→21:59)
[2018-08-30] MEDS: GLUCERNA 1.2 1000ML LIQUID GT PRN (05:31)
[2018-08-30] MEDS: FAMOTIDINE 40 MG TABLET GT SCH (05:31)
[2018-08-30] MEDS: ASPIRIN 81 MG TAB.CHEW GT SCH (08:02)
[2018-08-30] MEDS: LEVETIRACETAM 500 MG/5 ML LIQUID UDC GT SCH ×2 (08:03→21:58)
[2018-08-30] MEDS: METOPROLOL TARTRATE 50 MG TABLET GT SCH ×2 (08:03→21:58)
[2018-08-30 08:04] VITALS: BP 106/70
[2018-08-30] MEDS: LOSARTAN POTASSIUM 50 MG TABLET GT SCH (08:04)
[2018-08-30] MEDS: PROTEIN SUPPLEMENT (PROSTAT) 30 ML LIQUID GT SCH ×2 (08:05→17:44)
[2018-08-30] MEDS: LACOSAMIDE 200 MG TABLET XX SCH ×2 (08:05→21:59)
[2018-08-30] MEDS: SODIUM HYPOCHLORITE 0.125% 473 ML BOTTLE TP SCH ×3 (08:05→17:44)
[2018-08-30] MEDS: ASCORBIC ACID 500 MG TABLET GT SCH ×2 (08:05→21:58)
[2018-08-30] MEDS: NEOMY/BACITRA/POLYMYXIN B OINT UD PACKET TP SCH (08:05)
[2018-08-30] MEDS: HYDROGEN PEROXIDE 3% 118 ML BOTTLE TP SCH ×2 (08:05→21:59)
[2018-08-30] MEDS: COD LIVER OIL/ZINC OXIDE OINT 113 GM TUBE TP SCH ×3 (08:05→17:44)
--- NOTE | 2018-08-30 11:11 | NUR ---
New orders from Jacob [employer] to continue ivatb for 2 more weeks.orders carried out.
[2018-08-30 20:34] VITALS: BP 112/49
[2018-08-30] MEDS: RIVAROXABAN 15 MG TABLET PO SCH (21:00)
[2018-08-30] MEDS: ARGINAID GT SCH (21:58)
[2018-08-30] MEDS: MULTIVITAMINS,THERAPEUTIC TABLET GT SCH (21:58)
[2018-08-31] MEDS: IPRATROPIUM BROMIDE 0.5 MG/2.5 ML NEBU NEB SCH ×4 (01:30→19:08)
[2018-08-31] MEDS: ALBUTEROL SULFATE 2.5 MG/3 ML NEBU NEB SCH ×4 (01:30→19:08)
[2018-08-31] MEDS: GLUCERNA 1.2 1000ML LIQUID GT PRN (03:25)
--- NOTE | 2018-08-31 03:49 | NUR ---
ampicillin 1 gm iv for sacral wound osteomyelitis, no adverse reaction noted, afebrile.
[2018-08-31] MEDS: AMPICILLIN IV SCH ×3 (05:34→17:03)
[2018-08-31] MEDS: NS IV SCH ×3 (05:34→17:03)
[2018-08-31] MEDS: FAMOTIDINE 40 MG TABLET GT SCH (06:07)
[2018-08-31] MEDS: FERROUS SULFATE 330 MG/7.5 ML UDC- FOR SA ONLY GT SCH ×3 (06:07→22:00)
[2018-08-31] MEDS: POLYVINYL ALCOHOL OPHT DROPS 15 ML BOTTLE OP SCH ×3 (06:07→22:00)
[2018-08-31] MEDS: CHOLECALCIFEROL 1,000 UNIT TABLET GT SCH (06:07)
--- NOTE | 2018-08-31 07:50 | NUR ---
Pt received in semi tellez position, obtunded, unable to communicate, and on continuous mechanical ventilation via Shiley 6 DCT trach. Pt is on [place] HT-50 ventilator with ordered settings of A/C-12, VT-500, PEEP+5, FIO2-28% 2LPM Bleed-in oxygen. Tolerating vent settings well. SpO2-100% Trach is patent and secured. Minimal occluding volume technique used to assess cuff inflation. In-line nebulizer treatments given as ordered, Q6 with Albuterol/Atrovent. Treatments tolerated well, no adverse reactions noted. Sxn'd and lavaged as needed. Suctioned small amounts of thick white/yellowish secretions. HME changed. PPE used. No signs or symptoms of respiratory distress. Ventilator alarm parameters checked, on and audible. Vent plugged into red emergency outlet. Bag/valve/mask and backup trach at bedside. Will continue to monitor.
[2018-08-31 08:03] VITALS: BP 119/50
[2018-08-31] MEDS: LOSARTAN POTASSIUM 50 MG TABLET GT SCH (09:00)
[2018-08-31] MEDS: ASPIRIN 81 MG TAB.CHEW GT SCH (09:00)
[2018-08-31] MEDS: LEVETIRACETAM 500 MG/5 ML LIQUID UDC GT SCH ×2 (09:00→21:00)
[2018-08-31] MEDS: METOPROLOL TARTRATE 50 MG TABLET GT SCH ×2 (09:01→21:00)
[2018-08-31] MEDS: LACOSAMIDE 200 MG TABLET XX SCH ×2 (09:02→21:00)
[2018-08-31] MEDS: ASCORBIC ACID 500 MG TABLET GT SCH ×2 (09:02→21:00)
[2018-08-31] MEDS: SODIUM HYPOCHLORITE 0.125% 473 ML BOTTLE TP SCH ×3 (09:02→17:39)
[2018-08-31] MEDS: NEOMY/BACITRA/POLYMYXIN B OINT UD PACKET TP SCH (09:02)
[2018-08-31] MEDS: COD LIVER OIL/ZINC OXIDE OINT 113 GM TUBE TP SCH ×3 (09:02→17:39)
[2018-08-31] MEDS: HYDROGEN PEROXIDE 3% 118 ML BOTTLE TP SCH ×2 (09:02→21:00)
[2018-08-31] MEDS: PROTEIN SUPPLEMENT (PROSTAT) 30 ML LIQUID GT SCH ×2 (09:02→17:39)
--- NOTE | 2018-08-31 15:14 | NUR ---
CH. NURSE CALLED [facility]:COVERAGE OF AMPICILLIN EXTENDED TX AND SPOKE TO AYSHA AND SHE TOOK THE MESSAGE AND IV PHARMACIST WILL CALL BACK TO THE UNIT SOON HE CAN TODAY.
--- NOTE | 2018-08-31 19:10 | NUR ---
Pt received on HT-50 ventilator with the following settings of AC-12, Vt-500, PEEP+5, FIO2-2LPM bleed-in, trached with Shiley#6 DCT trach, which is in the place and secure. No s/s of respiratory distress noted. Airway care done, pt responded to physical stimuli. In-line HHN tx with 2.5mg Albuterol+0.5mg Atrovent given, pt tolerated well. HME, Sx Dorsey and HHN adaptor changed. PPE used. Resus. bag and back up trach at bedside. Vent and alarms checked and reset.
[2018-08-31 20:00] VITALS: BP 114/63
[2018-08-31] MEDS: MULTIVITAMINS,THERAPEUTIC TABLET GT SCH (21:00)
[2018-08-31] MEDS: RIVAROXABAN 15 MG TABLET PO SCH (21:00)
[2018-08-31] MEDS: ARGINAID GT SCH (21:00)
[2018-09-01] MEDS: NS IV SCH ×5 (00:12→23:05)
[2018-09-01] MEDS: AMPICILLIN IV SCH ×5 (00:12→23:05)
--- NOTE | 2018-09-01 00:56 | NUR ---
CONTINUE ON AMPICILLIN 1GM IV FOR SACRAL WOUND OSTEOMYLITIS, NO ADVERSE REACTION NOTED, AFEBRILE, ON CONTACT ISOLATION.
[2018-09-01] MEDS: ALBUTEROL SULFATE 2.5 MG/3 ML NEBU NEB SCH ×4 (00:58→19:33)
[2018-09-01] MEDS: IPRATROPIUM BROMIDE 0.5 MG/2.5 ML NEBU NEB SCH ×4 (00:58→19:33)
[2018-09-01] MEDS: CHOLECALCIFEROL 1,000 UNIT TABLET GT SCH (06:00)
[2018-09-01] MEDS: POLYVINYL ALCOHOL OPHT DROPS 15 ML BOTTLE OP SCH ×3 (06:00→21:43)
[2018-09-01] MEDS: FERROUS SULFATE 330 MG/7.5 ML UDC- FOR SA ONLY GT SCH ×3 (06:00→21:43)
[2018-09-01] MEDS: FAMOTIDINE 40 MG TABLET GT SCH (06:30)
[2018-09-01 08:02] VITALS: BP 109/49
[2018-09-01] MEDS: LOSARTAN POTASSIUM 50 MG TABLET GT SCH (08:38)
[2018-09-01] MEDS: LEVETIRACETAM 500 MG/5 ML LIQUID UDC GT SCH ×2 (08:39→21:43)
[2018-09-01] MEDS: METOPROLOL TARTRATE 50 MG TABLET GT SCH ×2 (08:39→21:43)
[2018-09-01] MEDS: SODIUM HYPOCHLORITE 0.125% 473 ML BOTTLE TP SCH ×3 (08:40→17:51)
[2018-09-01] MEDS: PROTEIN SUPPLEMENT (PROSTAT) 30 ML LIQUID GT SCH ×2 (08:40→17:51)
[2018-09-01] MEDS: ASCORBIC ACID 500 MG TABLET GT SCH ×2 (08:40→21:43)
[2018-09-01] MEDS: COD LIVER OIL/ZINC OXIDE OINT 113 GM TUBE TP SCH ×3 (08:40→17:51)
[2018-09-01] MEDS: HYDROGEN PEROXIDE 3% 118 ML BOTTLE TP SCH ×2 (08:40→21:43)
[2018-09-01] MEDS: NEOMY/BACITRA/POLYMYXIN B OINT UD PACKET TP SCH (08:41)
[2018-09-01] MEDS: LACOSAMIDE 200 MG TABLET XX SCH ×2 (08:41→21:43)
[2018-09-01] MEDS: ASPIRIN 81 MG TAB.CHEW GT SCH (08:45)
[2018-09-01 21:04] VITALS: BP 117/67
[2018-09-01] MEDS: ARGINAID GT SCH (21:43)
[2018-09-01] MEDS: MULTIVITAMINS,THERAPEUTIC TABLET GT SCH (21:43)
[2018-09-01] MEDS: RIVAROXABAN 15 MG TABLET PO SCH (21:43)
[2018-09-02] MEDS: ALBUTEROL SULFATE 2.5 MG/3 ML NEBU NEB SCH ×4 (01:53→20:08)
[2018-09-02] MEDS: IPRATROPIUM BROMIDE 0.5 MG/2.5 ML NEBU NEB SCH ×4 (01:53→20:08)
[2018-09-02] MEDS: AMPICILLIN IV SCH ×3 (05:12→18:19)
[2018-09-02] MEDS: NS IV SCH ×3 (05:12→18:19)
[2018-09-02] MEDS: POLYVINYL ALCOHOL OPHT DROPS 15 ML BOTTLE OP SCH ×3 (05:54→21:23)
[2018-09-02] MEDS: FERROUS SULFATE 330 MG/7.5 ML UDC- FOR SA ONLY GT SCH ×3 (05:54→21:23)
[2018-09-02] MEDS: CHOLECALCIFEROL 1,000 UNIT TABLET GT SCH (05:54)
[2018-09-02] MEDS: FAMOTIDINE 40 MG TABLET GT SCH (05:54)
[2018-09-02 08:00] VITALS: BP 114/52
--- NOTE | 2018-09-02 08:00 | NUR ---
PT REMAIN ON CONTINUOUS VENT AC 12 VT 500 PEEP 5 FIO2 2LPM BLEED. TRACH IN PLACED AND SECURED WITH TRACH TIE. BACK UP TRACH AND AMBU BAG AT BEDSIDE. IN LINE TX GIVEN WITH UD ALBUTEROL + UD ATROVENT TOLERATED. HME CHANGED. SUCTION TRACH TRACE AMOUNT THICK PALE YELLOW SECRETIONS. VENT CHECKED, ALARMS WORKING WELL AND AUDIBLE. NO SIGNS OF RESPIRATORY DISTRESS NOTED AT THIS TIME. PPE USED. WILL CONTINUE TO MONITOR.
[2018-09-02 08:16] LABS: BASOPHILS % (AUTO) 0.4 % (0.0-2.0); EOSINOPHILS # (AUTO) 0.3 K/uL (0.0-0.7); EOSINOPHILS % (AUTO) 6.1 % (0.0-7.0); HEMATOCRIT 27.8 % (36.7-47.1); HEMOGLOBIN 9.1 g/dL (12.5-16.3); LYMPHOCYTES # (AUTO) 1.3 K/uL (20.0-40.0); LYMPHOCYTES % (AUTO) 22.7 % (20.5-51.5); MEAN CORPUSCULAR HEMOGLOBIN 27.6 uug (23.8-33.4); MEAN CORPUSCULAR HGB CONC 33 g/dL (32.5-36.3); MEAN CORPUSCULAR VOLUME 84.9 fL (73.0-96.2); MONOCYTES # (AUTO) 0.5 K/uL (2.0-10.0); MONOCYTES % (AUTO) 8.4 % (0.0-11.0); NEUTROPHILS # (AUTO) 3.5 K/uL (1.8-8.9); NEUTROPHILS % (AUTO) 62.4 % (38.5-71.5); PLATELET COUNT (AUTO) 132 K/uL (152-348); RED BLOOD CELL COUNT(AUTO) 3.27 MIL/uL (4.06-5.63); WHITE BLOOD COUNT (AUTO) 5.6 K/uL (3.6-10.2)
[2018-09-02] MEDS: ASPIRIN 81 MG TAB.CHEW GT SCH (08:16)
[2018-09-02] MEDS: ASCORBIC ACID 500 MG TABLET GT SCH ×2 (08:17→21:22)
[2018-09-02] MEDS: LACOSAMIDE 200 MG TABLET XX SCH ×2 (08:17→21:24)
[2018-09-02] MEDS: SODIUM HYPOCHLORITE 0.125% 473 ML BOTTLE TP SCH ×3 (08:17→17:43)
[2018-09-02] MEDS: LOSARTAN POTASSIUM 50 MG TABLET GT SCH (08:17)
[2018-09-02] MEDS: LEVETIRACETAM 500 MG/5 ML LIQUID UDC GT SCH ×2 (08:17→21:21)
[2018-09-02] MEDS: COD LIVER OIL/ZINC OXIDE OINT 113 GM TUBE TP SCH ×3 (08:17→17:43)
[2018-09-02] MEDS: PROTEIN SUPPLEMENT (PROSTAT) 30 ML LIQUID GT SCH ×2 (08:17→17:43)
[2018-09-02] MEDS: NEOMY/BACITRA/POLYMYXIN B OINT UD PACKET TP SCH (08:17)
[2018-09-02] MEDS: HYDROGEN PEROXIDE 3% 118 ML BOTTLE TP SCH ×2 (08:17→21:23)
[2018-09-02] MEDS: METOPROLOL TARTRATE 50 MG TABLET GT SCH ×2 (08:17→21:21)
[2018-09-02 08:45] LABS: ALANINE AMINOTRANSFERASE 183 U/L (16-63); ALKALINE PHOSPHATASE 139 U/L (50-136); ASPARTATE AMINOTRANSFERASE 79 U/L (15-37); BILIRUBIN,TOTAL 0.4 mg/dL (0.2-1.0); CARBON DIOXIDE 29 mmol/L (21-32); CHLORIDE 105 mmol/L (98-107); CREATININE 0.5 mg/dL (0.6-1.3); GLUCOSE 130 mg/dL (74-106); POTASSIUM 4.3 mmol/L (3.5-5.1); TOTAL PROTEIN, SERUM 6.1 g/dL (6.4-8.2); UREA NITROGEN, BLOOD 23 mg/dL (7-18)
[2018-09-02 09:11] LABS: BAND % (MANUAL) 4 % (0-10); EOSINOPHILS % (MANUAL) 6 % (0-8); LYMPHOCYTES % (MANUAL) 17 % (20-40); METAMYELOCYTES % 1 % (0-1); MONOCYTES % (MANUAL) 6 % (2-10); MYELOCYTES % 1 % (0-0); NEUTROPHILS % (MANUAL) 65 % (42-75)
--- NOTE | 2018-09-02 10:38 | NUR ---
CH. NURSE CALLED TO [facility] AND SPOKE TO DUANE AND SHE STATED THAT SHE FAXED THE PRIOR AUTHORIZATION REQUEST TODAY TO SHEYLA MARTIN(I.D) OFFICE SO SHE CAN SIGN IT AND THEN FAX IT BACK TO THEM .SHEYLA MARTIN WAS NOTIFIED TOO TO F/U WITH SIGNATURE.TEA FROM [employer] ALSO WAS AWARE OF THIS TODAY.
--- NOTE | 2018-09-02 12:00 | NUR ---
SEEN BY AGUS ROCHA.
--- NOTE | 2018-09-02 20:10 | NUR ---
Pt received in semi tellez position, obtunded, unable to communicate, and on continuous mechanical ventilation via Shiley 6 DCT trach. Pt is on [place] HT-50 ventilator with ordered settings of A/C-12, VT-500, PEEP+5, FIO2-28% 2LPM Bleed-in oxygen. Tolerating vent settings well. SpO2-99% Trach is patent and secured. Minimal occluding volume technique used to assess cuff inflation. In-line nebulizer treatments given as ordered, Q6 with Albuterol/Atrovent. Treatments tolerated well, with no adverse reactions noted. Sxn'd and lavaged as needed. Suctioned small amounts of thick white/yellowish secretions. HME changed. PPE used. No signs or symptoms of respiratory distress. Ventilator alarm parameters checked, on and audible. Vent plugged into red emergency outlet. Bag/valve/mask and backup trach at bedside. Will continue to monitor.
[2018-09-02 20:58] VITALS: BP 117/69
[2018-09-02] MEDS: ARGINAID GT SCH (21:21)
[2018-09-02] MEDS: MULTIVITAMINS,THERAPEUTIC TABLET GT SCH (21:22)
[2018-09-02] MEDS: NEOMY/BACITRAC/POLYMI OINT 28.35 GM TUBE TP SCH (21:23)
[2018-09-02] MEDS: RIVAROXABAN 15 MG TABLET PO SCH (21:24)
[2018-09-02] MEDS: GLUCERNA 1.2 1000ML LIQUID GT PRN (23:54)
[2018-09-03] MEDS: AMPICILLIN IV SCH ×5 (00:35→23:21)
[2018-09-03] MEDS: NS IV SCH ×5 (00:35→23:21)
[2018-09-03] MEDS: IPRATROPIUM BROMIDE 0.5 MG/2.5 ML NEBU NEB SCH ×4 (01:58→19:42)
[2018-09-03] MEDS: ALBUTEROL SULFATE 2.5 MG/3 ML NEBU NEB SCH ×4 (01:58→19:42)
--- NOTE | 2018-09-03 04:37 | NUR ---
CONTINUE ON AMPICILLIN 1 GM IV FOR SACRAL WOUND OSTEOMYELITIS, NO ADVERSE REACTION NOTED, AFEBRILE.
[2018-09-03] MEDS: CHOLECALCIFEROL 1,000 UNIT TABLET GT SCH (05:44)
[2018-09-03] MEDS: POLYVINYL ALCOHOL OPHT DROPS 15 ML BOTTLE OP SCH ×3 (05:44→21:32)
[2018-09-03] MEDS: FAMOTIDINE 40 MG TABLET GT SCH (05:44)
[2018-09-03] MEDS: FERROUS SULFATE 330 MG/7.5 ML UDC- FOR SA ONLY GT SCH ×3 (05:44→21:28)
[2018-09-03 08:30] VITALS: BP 113/47
[2018-09-03] MEDS: LOSARTAN POTASSIUM 50 MG TABLET GT SCH (08:59)
[2018-09-03] MEDS: ASPIRIN 81 MG TAB.CHEW GT SCH (08:59)
[2018-09-03] MEDS: PROTEIN SUPPLEMENT (PROSTAT) 30 ML LIQUID GT SCH ×2 (09:00→17:16)
[2018-09-03] MEDS: LEVETIRACETAM 500 MG/5 ML LIQUID UDC GT SCH ×2 (09:00→21:23)
[2018-09-03] MEDS: METOPROLOL TARTRATE 50 MG TABLET GT SCH ×2 (09:00→21:24)
[2018-09-03] MEDS: HYDROGEN PEROXIDE 3% 118 ML BOTTLE TP SCH ×2 (09:02→21:27)
[2018-09-03] MEDS: LACOSAMIDE 200 MG TABLET XX SCH ×2 (09:02→21:27)
[2018-09-03] MEDS: NEOMY/BACITRA/POLYMYXIN B OINT UD PACKET TP SCH (09:02)
[2018-09-03] MEDS: ASCORBIC ACID 500 MG TABLET GT SCH ×2 (09:02→21:24)
[2018-09-03] MEDS: NEOMY/BACITRAC/POLYMI OINT 28.35 GM TUBE TP SCH ×2 (09:03→21:27)
[2018-09-03] MEDS: HYDROCODONE/APAP 5-325MG TABLET GT PRN (09:28)
[2018-09-03] MEDS: SODIUM HYPOCHLORITE 0.125% 473 ML BOTTLE TP SCH ×3 (10:15→17:16)
[2018-09-03] MEDS: COD LIVER OIL/ZINC OXIDE OINT 113 GM TUBE TP SCH ×3 (10:15→17:16)
--- NOTE | 2018-09-03 11:27 | NUR ---
CHANGED TRACH WITHOUT COMPLICATION. SEAN ROJAS RN ASSISTED DURING THE PROCEDURE.
[2018-09-03] MEDS: MULTIVITAMINS,THERAPEUTIC TABLET GT SCH (21:24)
[2018-09-03] MEDS: ARGINAID GT SCH (21:24)
[2018-09-03] MEDS: RIVAROXABAN 15 MG TABLET PO SCH (21:26)
[2018-09-03 21:36] VITALS: BP 113/59
[2018-09-04] MEDS: GLUCERNA 1.2 1000ML LIQUID GT PRN ×2 (00:13→23:15)
[2018-09-04] MEDS: ALBUTEROL SULFATE 2.5 MG/3 ML NEBU NEB SCH ×4 (00:57→19:51)
[2018-09-04] MEDS: IPRATROPIUM BROMIDE 0.5 MG/2.5 ML NEBU NEB SCH ×4 (00:57→19:51)
[2018-09-04] MEDS: CHOLECALCIFEROL 1,000 UNIT TABLET GT SCH (05:27)
[2018-09-04] MEDS: FERROUS SULFATE 330 MG/7.5 ML UDC- FOR SA ONLY GT SCH ×3 (05:27→21:20)
[2018-09-04] MEDS: POLYVINYL ALCOHOL OPHT DROPS 15 ML BOTTLE OP SCH ×3 (05:27→21:23)
[2018-09-04] MEDS: NS IV SCH ×3 (05:58→18:21)
[2018-09-04] MEDS: AMPICILLIN IV SCH ×3 (05:58→18:21)
--- NOTE | 2018-09-04 06:23 | NUR ---
Patient on IV MAxepime 1 gm Q 12 hours for Osteomylitis on the sacral wound for a duration of 2 more weeks.infused on PIV on right foot. Needs attended. No ASE noted from ATB use. Continue to monitor.
[2018-09-04] MEDS: FAMOTIDINE 40 MG TABLET GT SCH (06:32)
[2018-09-04] MEDS: LOSARTAN POTASSIUM 50 MG TABLET GT SCH (09:00)
[2018-09-04] MEDS: METOPROLOL TARTRATE 50 MG TABLET GT SCH ×2 (09:00→21:18)
[2018-09-04] MEDS: LACOSAMIDE 200 MG TABLET XX SCH ×2 (09:09→21:20)
[2018-09-04] MEDS: HYDROCODONE/APAP 5-325MG TABLET GT PRN (09:10)
[2018-09-04] MEDS: ASPIRIN 81 MG TAB.CHEW GT SCH (09:36)
[2018-09-04] MEDS: PROTEIN SUPPLEMENT (PROSTAT) 30 ML LIQUID GT SCH ×2 (09:37→17:14)
[2018-09-04] MEDS: LEVETIRACETAM 500 MG/5 ML LIQUID UDC GT SCH ×2 (09:37→21:15)
[2018-09-04] MEDS: HYDROGEN PEROXIDE 3% 118 ML BOTTLE TP SCH ×2 (09:38→21:20)
[2018-09-04] MEDS: NEOMY/BACITRAC/POLYMI OINT 28.35 GM TUBE TP SCH ×2 (09:38→21:20)
[2018-09-04] MEDS: ASCORBIC ACID 500 MG TABLET GT SCH ×2 (09:38→21:19)
[2018-09-04] MEDS: COD LIVER OIL/ZINC OXIDE OINT 113 GM TUBE TP SCH ×3 (09:45→17:59)
[2018-09-04] MEDS: SODIUM HYPOCHLORITE 0.125% 473 ML BOTTLE TP SCH ×4 (09:45→21:19)
--- NOTE | 2018-09-04 10:00 | NUR ---
PATIENT SEEN BY WAYNE VALERIO. NEW ORDERS RECEIVED AND CARRIED OUT.
[2018-09-04 11:46] VITALS: BP 99/68
[2018-09-04] MEDS ORDERED: Z GUARD REMEDY PASTE 57 GM TUBE TOP PRN (17:00)
[2018-09-04] MEDS: Z GUARD REMEDY PASTE 57 GM TUBE TOP SCH ×2 (17:57→21:19)
--- NOTE | 2018-09-04 18:00 | NUR ---
pt still on ivatb,no adverse reaction noted iv site intact,no s/s of infiltration noted.
[2018-09-04 20:00] VITALS: BP 119/58
[2018-09-04] MEDS: ARGINAID GT SCH (21:18)
[2018-09-04] MEDS: MULTIVITAMINS,THERAPEUTIC TABLET GT SCH (21:18)
[2018-09-04] MEDS: RIVAROXABAN 15 MG TABLET PO SCH (21:19)
[2018-09-05] MEDS: ALBUTEROL SULFATE 2.5 MG/3 ML NEBU NEB SCH ×4 (02:20→19:29)
[2018-09-05] MEDS: IPRATROPIUM BROMIDE 0.5 MG/2.5 ML NEBU NEB SCH ×4 (02:20→19:29)
--- NOTE | 2018-09-05 02:34 | NUR ---
Afebrile, still on Ampicillin IV for sacral wound osteomylitis, no adverse reactions noted. On contact isolation for VRE of wound, treatment done to sacral wound as ordered, turned and repositioned, cordova catheter is draining well to yellow urine, good daniel care rendered. Kept clean and comfortable, will continue monitor.
[2018-09-05] MEDS: FERROUS SULFATE 330 MG/7.5 ML UDC- FOR SA ONLY GT SCH ×3 (05:49→21:31)
[2018-09-05] MEDS: CHOLECALCIFEROL 1,000 UNIT TABLET GT SCH (05:49)
[2018-09-05] MEDS: FAMOTIDINE 40 MG TABLET GT SCH (05:50)
[2018-09-05] MEDS: POLYVINYL ALCOHOL OPHT DROPS 15 ML BOTTLE OP SCH ×3 (05:50→21:32)
[2018-09-05] MEDS: NS IV SCH ×5 (06:20→17:54)
[2018-09-05] MEDS: AMPICILLIN IV SCH ×5 (06:20→17:54)
[2018-09-05] MEDS: ASPIRIN 81 MG TAB.CHEW GT SCH (08:36)
[2018-09-05] MEDS: LOSARTAN POTASSIUM 50 MG TABLET GT SCH (08:36)
[2018-09-05] MEDS: LEVETIRACETAM 500 MG/5 ML LIQUID UDC GT SCH ×2 (08:36→21:29)
[2018-09-05] MEDS: COD LIVER OIL/ZINC OXIDE OINT 113 GM TUBE TP SCH ×3 (08:37→16:11)
[2018-09-05] MEDS: PROTEIN SUPPLEMENT (PROSTAT) 30 ML LIQUID GT SCH ×2 (08:37→16:11)
[2018-09-05] MEDS: ASCORBIC ACID 500 MG TABLET GT SCH ×2 (08:37→21:30)
[2018-09-05] MEDS: HYDROGEN PEROXIDE 3% 118 ML BOTTLE TP SCH ×2 (08:37→21:31)
[2018-09-05] MEDS: METOPROLOL TARTRATE 50 MG TABLET GT SCH ×2 (08:37→21:00)
[2018-09-05] MEDS: NEOMY/BACITRAC/POLYMI OINT 28.35 GM TUBE TP SCH ×2 (08:37→21:31)
[2018-09-05] MEDS: Z GUARD REMEDY PASTE 57 GM TUBE TOP SCH ×3 (08:37→21:31)
[2018-09-05] MEDS: SODIUM HYPOCHLORITE 0.125% 473 ML BOTTLE TP SCH ×3 (08:37→21:31)
[2018-09-05] MEDS: LACOSAMIDE 200 MG TABLET XX SCH ×2 (08:37→21:31)
[2018-09-05 11:19] VITALS: BP 115/53
[2018-09-05 20:36] VITALS: BP 98/50
[2018-09-05] MEDS: RIVAROXABAN 15 MG TABLET PO SCH (21:30)
[2018-09-05] MEDS: ARGINAID GT SCH (21:30)
[2018-09-05] MEDS: MULTIVITAMINS,THERAPEUTIC TABLET GT SCH (21:30)
[2018-09-05] MEDS: GLUCERNA 1.2 1000ML LIQUID GT PRN (21:36)
[2018-09-06] MEDS: ALBUTEROL SULFATE 2.5 MG/3 ML NEBU NEB SCH ×4 (00:53→20:13)
[2018-09-06] MEDS: IPRATROPIUM BROMIDE 0.5 MG/2.5 ML NEBU NEB SCH ×4 (00:53→20:13)
--- NOTE | 2018-09-06 03:16 | NUR ---
On Ampicillin IV for sacral wound osteomylitis, no adverse reactions noted. Afebrile, on contact isolation for VRE of wound, treatment done to sacral wound as ordered, turned and repositioned, cordova catheter is draining well to yellow urine, good daniel care rendered. Kept clean and comfortable.
[2018-09-06] MEDS: POLYVINYL ALCOHOL OPHT DROPS 15 ML BOTTLE OP SCH ×3 (05:42→21:54)
[2018-09-06] MEDS: CHOLECALCIFEROL 1,000 UNIT TABLET GT SCH (05:42)
[2018-09-06] MEDS: FAMOTIDINE 40 MG TABLET GT SCH (05:42)
[2018-09-06] MEDS: FERROUS SULFATE 330 MG/7.5 ML UDC- FOR SA ONLY GT SCH ×3 (05:42→21:54)
[2018-09-06] MEDS: NS IV SCH ×5 (06:16→18:42)
[2018-09-06] MEDS: AMPICILLIN IV SCH ×5 (06:16→18:42)
[2018-09-06] MEDS: ASPIRIN 81 MG TAB.CHEW GT SCH (08:04)
[2018-09-06] MEDS: LOSARTAN POTASSIUM 50 MG TABLET GT SCH (08:07)
[2018-09-06] MEDS: METOPROLOL TARTRATE 50 MG TABLET GT SCH ×2 (08:09→21:53)
[2018-09-06] MEDS: LEVETIRACETAM 500 MG/5 ML LIQUID UDC GT SCH ×2 (08:09→21:53)
[2018-09-06] MEDS: PROTEIN SUPPLEMENT (PROSTAT) 30 ML LIQUID GT SCH ×2 (08:09→16:52)
[2018-09-06] MEDS: ASCORBIC ACID 500 MG TABLET GT SCH ×2 (08:10→21:53)
[2018-09-06] MEDS: COD LIVER OIL/ZINC OXIDE OINT 113 GM TUBE TP SCH ×3 (08:10→16:53)
[2018-09-06] MEDS: HYDROGEN PEROXIDE 3% 118 ML BOTTLE TP SCH ×2 (08:10→21:00)
[2018-09-06] MEDS: Z GUARD REMEDY PASTE 57 GM TUBE TOP SCH ×3 (08:10→21:54)
[2018-09-06] MEDS: LACOSAMIDE 200 MG TABLET XX SCH ×2 (08:10→21:54)
[2018-09-06] MEDS: NEOMY/BACITRAC/POLYMI OINT 28.35 GM TUBE TP SCH ×2 (08:10→21:00)
[2018-09-06] MEDS: SODIUM HYPOCHLORITE 0.125% 473 ML BOTTLE TP SCH ×3 (08:10→21:00)
[2018-09-06 11:39] VITALS: BP 94/63
[2018-09-06] MEDS: RIVAROXABAN 15 MG TABLET PO SCH (21:00)
[2018-09-06] MEDS: MULTIVITAMINS,THERAPEUTIC TABLET GT SCH (21:53)
[2018-09-06] MEDS: ARGINAID GT SCH (21:53)
[2018-09-06 22:49] VITALS: BP 114/46
--- NOTE | 2018-09-06 23:51 | NUR ---
PT ON CONT HT 50 VENT WITH SHILEY # [address] AND SECURED, WITH SAME CURRENT VENT SETTINGS, PT DOES ASSIST AT TIMES, WITH GOOD COUGH EFFORT, SUCTIONED LIGHT PALE YELL TINGE SECRETIONS, CHECK CUFF, CHANGE HME, ALL VENT ALARMS GOOD, NO SOB NOTED, AMBU BAG AT BEDSIDE, PT WITH Q6 NEB INLINE WITH ALBUTEROL/ ATROVENT TOLL WELL, PT STABLE.Emily STRAUSSP Addendum: 09/06/18 at 8614 by PAIGE HOWELL RT Amended: Links added.
[2018-09-07] MEDS: AMPICILLIN IV SCH ×4 (00:04→18:43)
[2018-09-07] MEDS: NS IV SCH ×4 (00:04→18:43)
--- NOTE | 2018-09-07 00:54 | NUR ---
continue on ampicillin 1 gm iv for sacral wound osteomyelitis, no adverse reaction noted, afebrile, on contact isolation.
[2018-09-07] MEDS: ALBUTEROL SULFATE 2.5 MG/3 ML NEBU NEB SCH ×4 (01:05→19:24)
[2018-09-07] MEDS: IPRATROPIUM BROMIDE 0.5 MG/2.5 ML NEBU NEB SCH ×4 (01:05→19:24)
[2018-09-07] MEDS: CHOLECALCIFEROL 1,000 UNIT TABLET GT SCH (05:48)
[2018-09-07] MEDS: POLYVINYL ALCOHOL OPHT DROPS 15 ML BOTTLE OP SCH ×3 (05:48→22:15)
[2018-09-07] MEDS: FERROUS SULFATE 330 MG/7.5 ML UDC- FOR SA ONLY GT SCH ×3 (05:48→22:15)
[2018-09-07] MEDS: FAMOTIDINE 40 MG TABLET GT SCH (05:48)
[2018-09-07] MEDS: ASPIRIN 81 MG TAB.CHEW GT SCH (09:58)
[2018-09-07] MEDS: COD LIVER OIL/ZINC OXIDE OINT 113 GM TUBE TP SCH ×3 (09:59→17:57)
[2018-09-07] MEDS: PROTEIN SUPPLEMENT (PROSTAT) 30 ML LIQUID GT SCH ×2 (09:59→17:57)
[2018-09-07] MEDS: SODIUM HYPOCHLORITE 0.125% 473 ML BOTTLE TP SCH ×3 (09:59→20:44)
[2018-09-07] MEDS: HYDROGEN PEROXIDE 3% 118 ML BOTTLE TP SCH ×2 (09:59→20:34)
[2018-09-07] MEDS: NEOMY/BACITRAC/POLYMI OINT 28.35 GM TUBE TP SCH ×2 (09:59→20:34)
[2018-09-07] MEDS: METOPROLOL TARTRATE 50 MG TABLET GT SCH ×2 (09:59→20:42)
[2018-09-07] MEDS: Z GUARD REMEDY PASTE 57 GM TUBE TOP SCH ×3 (09:59→20:33)
[2018-09-07] MEDS: ASCORBIC ACID 500 MG TABLET GT SCH ×2 (09:59→20:30)
[2018-09-07] MEDS: LACOSAMIDE 200 MG TABLET XX SCH ×2 (09:59→20:34)
[2018-09-07] MEDS: LEVETIRACETAM 500 MG/5 ML LIQUID UDC GT SCH ×2 (09:59→20:29)
[2018-09-07] MEDS: LOSARTAN POTASSIUM 50 MG TABLET GT SCH (09:59)
[2018-09-07] MEDS: HYDROCODONE/APAP 5-325MG TABLET GT PRN (10:15)
[2018-09-07 12:01] VITALS: BP 115/64
[2018-09-07] MEDS: ARGINAID GT SCH (20:30)
[2018-09-07] MEDS: MULTIVITAMINS,THERAPEUTIC TABLET GT SCH (20:30)
[2018-09-07] MEDS: RIVAROXABAN 15 MG TABLET PO SCH (20:33)
[2018-09-07 23:22] VITALS: BP 116/58
--- NOTE | 2018-09-08 00:13 | NUR ---
PT ON CONT HT 50 VENT WITH SHILEY # [address] AND SECURED, WITH SAME CURRENT VENT SETTINGS, PT DOES ASSIST AT TIMES, WITH GOOD COUGH EFFORT, SUCTIONED LIGHT PALE YELL TINGE SECRETIONS, AND SUCTION MOUTH WITH SHERIN NGUYEN WELL, ALL VENT ALARMS GOOD, NO VENT CHANGES MADE, PT STABLE, CHANGE HME AND BALLARD. Emily HOWELL RCP Addendum: 09/08/18 at 0015 by PAIGE HOWELL RT Amended: Links added.
[2018-09-08] MEDS: NS IV SCH ×4 (00:19→17:16)
[2018-09-08] MEDS: AMPICILLIN IV SCH ×4 (00:19→17:16)
[2018-09-08] MEDS: ALBUTEROL SULFATE 2.5 MG/3 ML NEBU NEB SCH ×4 (01:20→19:24)
[2018-09-08] MEDS: IPRATROPIUM BROMIDE 0.5 MG/2.5 ML NEBU NEB SCH ×4 (01:20→19:24)
--- NOTE | 2018-09-08 01:49 | NUR ---
ON AMPICILLIN 1GM IV FOR SACRAL WOUND OSTEOMYELITIS, NO ADVERSE REACTION NOTED, ON CONTACT ISOLATION FOR VRE IN WOUND, AFEBRILE.
[2018-09-08] MEDS: CHOLECALCIFEROL 1,000 UNIT TABLET GT SCH (05:22)
[2018-09-08] MEDS: FERROUS SULFATE 330 MG/7.5 ML UDC- FOR SA ONLY GT SCH ×3 (05:22→22:03)
[2018-09-08] MEDS: POLYVINYL ALCOHOL OPHT DROPS 15 ML BOTTLE OP SCH ×3 (05:23→22:03)
[2018-09-08] MEDS: FAMOTIDINE 40 MG TABLET GT SCH (05:55)
--- NOTE | 2018-09-08 08:00 | NUR ---
PT REMAIN ON CONTINUOUS VENT AC 12 VT 500 PEEP 5 FIO2 2LPM BLEED. TRACH IN PLACED AND SECURED WITH TRACH TIE. BACK UP TRACH AND AMBU BAG AT BEDSIDE. IN LINE TX GIVEN WITH UD ALBUTEROL + UD ATROVENT ORDERED. HME CHANGED. SUCTION TRACH SMALL AMOUNT THICK PALE YELLOW SECRETIONS. VENT CHECKED, ALARMS WORKING WELL AND AUDIBLE. NO SIGNS OF RESPIRATORY DISTRESS NOTED AT THIS TIME. PPE USED. WILL CONTINUE TO MONITOR.
[2018-09-08 08:04] VITALS: BP 104/62
[2018-09-08] MEDS: ASPIRIN 81 MG TAB.CHEW GT SCH (08:22)
[2018-09-08] MEDS: LOSARTAN POTASSIUM 50 MG TABLET GT SCH (08:23)
[2018-09-08] MEDS: LEVETIRACETAM 500 MG/5 ML LIQUID UDC GT SCH ×2 (08:23→20:41)
[2018-09-08] MEDS: METOPROLOL TARTRATE 50 MG TABLET GT SCH ×2 (08:41→20:43)
[2018-09-08] MEDS: ASCORBIC ACID 500 MG TABLET GT SCH ×2 (08:43→20:43)
[2018-09-08] MEDS: PROTEIN SUPPLEMENT (PROSTAT) 30 ML LIQUID GT SCH ×2 (08:43→17:14)
[2018-09-08] MEDS: Z GUARD REMEDY PASTE 57 GM TUBE TOP SCH ×3 (08:44→20:43)
[2018-09-08] MEDS: LACOSAMIDE 200 MG TABLET XX SCH ×2 (08:44→20:44)
[2018-09-08] MEDS: HYDROGEN PEROXIDE 3% 118 ML BOTTLE TP SCH ×2 (08:44→20:44)
[2018-09-08] MEDS: SODIUM HYPOCHLORITE 0.125% 473 ML BOTTLE TP SCH ×3 (08:44→20:43)
[2018-09-08] MEDS: NEOMY/BACITRAC/POLYMI OINT 28.35 GM TUBE TP SCH ×2 (08:44→20:44)
[2018-09-08] MEDS: COD LIVER OIL/ZINC OXIDE OINT 113 GM TUBE TP SCH ×3 (08:44→17:17)
[2018-09-08] MEDS: GLUCERNA 1.2 1000ML LIQUID GT PRN (11:25)
--- NOTE | 2018-09-08 18:15 | NUR ---
Continue on ivatb,for sacral wound osteomilitis,no adverse reaction noted,iv site intact.wound tx done as ordered.
[2018-09-08] MEDS: RIVAROXABAN 15 MG TABLET PO SCH (20:39)
[2018-09-08] MEDS: MULTIVITAMINS,THERAPEUTIC TABLET GT SCH (20:43)
[2018-09-08] MEDS: ARGINAID GT SCH (20:43)
--- NOTE | 2018-09-08 20:55 | NUR ---
PT ON CONT HT 50 VENT WITH SHILEY # [address] AND SECURED, WITH SAME CURRENT VENT SETTINGS, PT DOES ASSIST AT TIMES, GOOD COUGH EFFORT, SUCTIONED LIGHT PALE YELL TINGE SECRETIONS, SUCTION MOUTH WITH SHERIN NGUYEN, CHANGE HME, CHECK CUFF, ALL VENT ALARMS GOOD, NO VENT CHANGES MADE AT THIS TIME, AMBU BAG AT BEDSIDE, PT STABLE . Emily STRAUSSP Addendum: 09/08/18 at 2056 by PAIGE HOWELL RT Amended: Links added.
--- NOTE | 2018-09-08 21:48 | NUR ---
Afebrile, trach intact and patent, connected to vent on prescribed settings, no respiratory distress, no bleeding from mouth noted at this time d/t patient biting his tongue or inner cheeks. still on ampicillin IV for sacral wound osteomylitis, no adverse reactions noted. wound care done as ordered, cordova catheter draining well to clear yellow urine, good daniel care rendered, turned and repositioned, kept patient clean and comfortable.
[2018-09-08 22:43] VITALS: BP 112/48
[2018-09-09] MEDS: NS IV SCH ×4 (00:21→17:14)
[2018-09-09] MEDS: AMPICILLIN IV SCH ×4 (00:21→17:14)
[2018-09-09] MEDS: ALBUTEROL SULFATE 2.5 MG/3 ML NEBU NEB SCH ×4 (01:43→19:15)
[2018-09-09] MEDS: IPRATROPIUM BROMIDE 0.5 MG/2.5 ML NEBU NEB SCH ×4 (01:43→19:15)
[2018-09-09] MEDS: FERROUS SULFATE 330 MG/7.5 ML UDC- FOR SA ONLY GT SCH ×3 (05:52→21:06)
[2018-09-09] MEDS: FAMOTIDINE 40 MG TABLET GT SCH (05:52)
[2018-09-09] MEDS: POLYVINYL ALCOHOL OPHT DROPS 15 ML BOTTLE OP SCH ×3 (05:52→21:06)
[2018-09-09] MEDS: CHOLECALCIFEROL 1,000 UNIT TABLET GT SCH (05:52)
[2018-09-09] MEDS: GLUCERNA 1.2 1000ML LIQUID GT PRN (07:16)
[2018-09-09 08:07] VITALS: BP 108/57
--- NOTE | 2018-09-09 08:10 | NUR ---
Pt received in semi tellez position, obtunded, unable to communicate, and on continuous mechanical ventilation via Shiley 6 DCT trach. Pt is on [place] HT-50 ventilator with ordered settings of A/C-12, VT-500, PEEP+5, FIO2-28% 2LPM Bleed-in oxygen. Tolerating vent settings well. Trach is patent and secured. Minimal occluding volume technique used to assess cuff inflation. In-line nebulizer treatments given as ordered, Q6 with Albuterol/Atrovent. Treatments tolerated well, with no adverse reactions noted. Sxn'd and lavaged as needed. Suctioned small amounts of thick white secretions. HME changed. PPE used. No signs or symptoms of respiratory distress. Ventilator alarm parameters checked, on and audible. Vent plugged into red emergency outlet. Bag/valve/mask and backup trach at bedside. Will continue to monitor.
[2018-09-09] MEDS: ASPIRIN 81 MG TAB.CHEW GT SCH (08:17)
[2018-09-09] MEDS: LOSARTAN POTASSIUM 50 MG TABLET GT SCH (08:17)
[2018-09-09] MEDS: LEVETIRACETAM 500 MG/5 ML LIQUID UDC GT SCH ×2 (08:17→21:04)
[2018-09-09] MEDS: METOPROLOL TARTRATE 50 MG TABLET GT SCH ×2 (08:18→21:05)
[2018-09-09] MEDS: NEOMY/BACITRAC/POLYMI OINT 28.35 GM TUBE TP SCH (08:19)
[2018-09-09] MEDS: SODIUM HYPOCHLORITE 0.125% 473 ML BOTTLE TP SCH ×3 (08:19→21:06)
[2018-09-09] MEDS: HYDROGEN PEROXIDE 3% 118 ML BOTTLE TP SCH ×2 (08:19→21:06)
[2018-09-09] MEDS: Z GUARD REMEDY PASTE 57 GM TUBE TOP SCH ×3 (08:19→21:05)
[2018-09-09] MEDS: PROTEIN SUPPLEMENT (PROSTAT) 30 ML LIQUID GT SCH ×2 (08:19→17:44)
[2018-09-09] MEDS: LACOSAMIDE 200 MG TABLET XX SCH ×2 (08:19→21:06)
[2018-09-09] MEDS: ASCORBIC ACID 500 MG TABLET GT SCH ×2 (08:19→21:05)
[2018-09-09] MEDS: COD LIVER OIL/ZINC OXIDE OINT 113 GM TUBE TP SCH ×3 (08:19→17:44)
[2018-09-09 20:46] VITALS: BP 125/61
[2018-09-09] MEDS: RIVAROXABAN 15 MG TABLET PO SCH (21:04)
[2018-09-09] MEDS: ARGINAID GT SCH (21:05)
[2018-09-09] MEDS: MULTIVITAMINS,THERAPEUTIC TABLET GT SCH (21:05)
[2018-09-10] MEDS: AMPICILLIN IV SCH ×4 (00:01→17:05)
[2018-09-10] MEDS: NS IV SCH ×4 (00:01→17:05)
[2018-09-10] MEDS: IPRATROPIUM BROMIDE 0.5 MG/2.5 ML NEBU NEB SCH ×4 (00:58→19:05)
[2018-09-10] MEDS: ALBUTEROL SULFATE 2.5 MG/3 ML NEBU NEB SCH ×4 (00:58→19:05)
[2018-09-10] MEDS: GLUCERNA 1.2 1000ML LIQUID GT PRN (02:00)
[2018-09-10] MEDS: FAMOTIDINE 40 MG TABLET GT SCH (05:32)
[2018-09-10] MEDS: POLYVINYL ALCOHOL OPHT DROPS 15 ML BOTTLE OP SCH ×3 (05:32→21:30)
[2018-09-10] MEDS: CHOLECALCIFEROL 1,000 UNIT TABLET GT SCH (05:32)
[2018-09-10] MEDS: FERROUS SULFATE 330 MG/7.5 ML UDC- FOR SA ONLY GT SCH ×3 (05:32→21:30)
--- NOTE | 2018-09-10 06:52 | NUR ---
Received IV Amipicillin without redness and infiltration on right foot. Flushed per protocol, Afebrile, continue to observed contact isolation for VRE of the wound. Treatment provided for pressure ulcer.Continue to monitor.
[2018-09-10 08:05] VITALS: BP 122/71
[2018-09-10] MEDS: ASPIRIN 81 MG TAB.CHEW GT SCH (08:24)
[2018-09-10] MEDS: ASCORBIC ACID 500 MG TABLET GT SCH ×2 (08:24→21:30)
[2018-09-10] MEDS: METOPROLOL TARTRATE 50 MG TABLET GT SCH ×2 (08:24→21:30)
[2018-09-10] MEDS: LOSARTAN POTASSIUM 50 MG TABLET GT SCH (08:24)
[2018-09-10] MEDS: Z GUARD REMEDY PASTE 57 GM TUBE TOP SCH ×3 (08:24→21:30)
[2018-09-10] MEDS: COD LIVER OIL/ZINC OXIDE OINT 113 GM TUBE TP SCH ×3 (08:24→17:30)
[2018-09-10] MEDS: SODIUM HYPOCHLORITE 0.125% 473 ML BOTTLE TP SCH ×3 (08:24→21:30)
[2018-09-10] MEDS: LEVETIRACETAM 500 MG/5 ML LIQUID UDC GT SCH ×2 (08:24→21:22)
[2018-09-10] MEDS: HYDROGEN PEROXIDE 3% 118 ML BOTTLE TP SCH ×2 (08:24→21:30)
[2018-09-10] MEDS: PROTEIN SUPPLEMENT (PROSTAT) 30 ML LIQUID GT SCH ×2 (08:24→17:30)
[2018-09-10] MEDS: LACOSAMIDE 200 MG TABLET XX SCH ×2 (08:24→21:30)
[2018-09-10] MEDS: RIVAROXABAN 15 MG TABLET PO SCH (21:23)
[2018-09-10] MEDS: MULTIVITAMINS,THERAPEUTIC TABLET GT SCH (21:30)
[2018-09-10] MEDS: ARGINAID GT SCH (21:30)
[2018-09-10 22:15] VITALS: BP 117/53
[2018-09-11] MEDS: AMPICILLIN IV SCH ×4 (00:33→18:12)
[2018-09-11] MEDS: NS IV SCH ×4 (00:33→18:12)
[2018-09-11] MEDS: IPRATROPIUM BROMIDE 0.5 MG/2.5 ML NEBU NEB SCH ×4 (01:07→19:13)
[2018-09-11] MEDS: ALBUTEROL SULFATE 2.5 MG/3 ML NEBU NEB SCH ×4 (01:07→19:13)
[2018-09-11] MEDS: GLUCERNA 1.2 1000ML LIQUID GT PRN (01:34)
[2018-09-11] MEDS: FERROUS SULFATE 330 MG/7.5 ML UDC- FOR SA ONLY GT SCH ×3 (06:00→21:43)
[2018-09-11] MEDS: POLYVINYL ALCOHOL OPHT DROPS 15 ML BOTTLE OP SCH ×3 (06:00→21:43)
[2018-09-11] MEDS: CHOLECALCIFEROL 1,000 UNIT TABLET GT SCH (06:00)
[2018-09-11] MEDS: FAMOTIDINE 40 MG TABLET GT SCH (06:01)
[2018-09-11 07:10] VITALS: BP 130/60
[2018-09-11] MEDS: ASPIRIN 81 MG TAB.CHEW GT SCH (08:54)
[2018-09-11] MEDS: SODIUM HYPOCHLORITE 0.125% 473 ML BOTTLE TP SCH ×3 (08:55→21:43)
[2018-09-11] MEDS: METOPROLOL TARTRATE 50 MG TABLET GT SCH ×2 (08:55→21:39)
[2018-09-11] MEDS: COD LIVER OIL/ZINC OXIDE OINT 113 GM TUBE TP SCH ×3 (08:55→17:25)
[2018-09-11] MEDS: Z GUARD REMEDY PASTE 57 GM TUBE TOP SCH ×3 (08:55→21:43)
[2018-09-11] MEDS: LOSARTAN POTASSIUM 50 MG TABLET GT SCH (08:55)
[2018-09-11] MEDS: HYDROGEN PEROXIDE 3% 118 ML BOTTLE TP SCH ×2 (08:55→21:43)
[2018-09-11] MEDS: LACOSAMIDE 200 MG TABLET XX SCH ×2 (08:55→21:43)
[2018-09-11] MEDS: ASCORBIC ACID 500 MG TABLET GT SCH ×2 (08:55→21:39)
[2018-09-11] MEDS: LEVETIRACETAM 500 MG/5 ML LIQUID UDC GT SCH ×2 (08:55→21:37)
[2018-09-11] MEDS: PROTEIN SUPPLEMENT (PROSTAT) 30 ML LIQUID GT SCH ×2 (08:55→17:25)
[2018-09-11 20:16] VITALS: BP 104/47
[2018-09-11] MEDS: ARGINAID GT SCH (21:37)
[2018-09-11] MEDS: MULTIVITAMINS,THERAPEUTIC TABLET GT SCH (21:39)
[2018-09-11] MEDS: RIVAROXABAN 15 MG TABLET PO SCH (21:43)
--- NOTE | 2018-09-11 23:23 | NUR ---
PT ON CONT HT 50 VENT WITH SHILEY # [address] AND SECURED, WITH SAME CURRENT VENT SETTINGS, PT DOES ASSIST AT TIMES, WITH GOOD COUGH EFFORT, SUCTIONED LIGHT PALE YELL TINGE SECRETIONS, AND SUCTION MOUTH WITH SHERIN NGUYEN, CHANGE HME AND CHEC K CUFF, ALL VENT ALARMS OK, NO VENT CHANGES MADE AT THIS TIME, PT RANJITH DEUTSCH BAG AT BEDSIDE.Emily STRAUSSP Addendum: 09/11/18 at 9315 by PAIGE HOWELL RT Amended: Links added.
[2018-09-12] MEDS: AMPICILLIN IV SCH ×4 (00:11→17:18)
[2018-09-12] MEDS: NS IV SCH ×4 (00:11→17:18)
--- NOTE | 2018-09-12 00:42 | NUR ---
continue on ampicillin iv, no adverse reaction noted, afebrile.
[2018-09-12] MEDS: ALBUTEROL SULFATE 2.5 MG/3 ML NEBU NEB SCH ×4 (01:49→19:51)
[2018-09-12] MEDS: IPRATROPIUM BROMIDE 0.5 MG/2.5 ML NEBU NEB SCH ×4 (01:49→19:51)
[2018-09-12] MEDS: GLUCERNA 1.2 1000ML LIQUID GT PRN (03:35)
[2018-09-12] MEDS: CHOLECALCIFEROL 1,000 UNIT TABLET GT SCH (05:12)
[2018-09-12] MEDS: FERROUS SULFATE 330 MG/7.5 ML UDC- FOR SA ONLY GT SCH ×3 (05:12→21:55)
[2018-09-12] MEDS: POLYVINYL ALCOHOL OPHT DROPS 15 ML BOTTLE OP SCH ×3 (05:12→21:55)
[2018-09-12] MEDS: FAMOTIDINE 40 MG TABLET GT SCH (05:44)
--- NOTE | 2018-09-12 06:00 | NUR ---
NOTES SEEN FROM AND WITH NNO.
[2018-09-12] MEDS: LOSARTAN POTASSIUM 50 MG TABLET GT SCH (08:30)
[2018-09-12] MEDS: LEVETIRACETAM 500 MG/5 ML LIQUID UDC GT SCH ×2 (08:30→21:52)
[2018-09-12] MEDS: ASPIRIN 81 MG TAB.CHEW GT SCH (08:30)
[2018-09-12] MEDS: HYDROGEN PEROXIDE 3% 118 ML BOTTLE TP SCH ×2 (08:31→21:55)
[2018-09-12] MEDS: PROTEIN SUPPLEMENT (PROSTAT) 30 ML LIQUID GT SCH ×2 (08:31→17:38)
[2018-09-12] MEDS: Z GUARD REMEDY PASTE 57 GM TUBE TOP SCH ×3 (08:31→21:54)
[2018-09-12] MEDS: LACOSAMIDE 200 MG TABLET XX SCH ×2 (08:31→21:55)
[2018-09-12] MEDS: SODIUM HYPOCHLORITE 0.125% 473 ML BOTTLE TP SCH ×3 (08:31→21:55)
[2018-09-12] MEDS: COD LIVER OIL/ZINC OXIDE OINT 113 GM TUBE TP SCH ×3 (08:31→17:38)
[2018-09-12] MEDS: ASCORBIC ACID 500 MG TABLET GT SCH ×2 (08:31→21:54)
[2018-09-12] MEDS: METOPROLOL TARTRATE 50 MG TABLET GT SCH ×2 (08:31→21:00)
[2018-09-12 10:49] VITALS: BP 127/65
--- NOTE | 2018-09-12 11:00 | NUR ---
SEEN BY AGUS ROCHA.
--- NOTE | 2018-09-12 19:50 | NUR ---
PT RECEIVED ON CONTINUOUS VENT AC 12 VT 500 PEEP 5 FIO2 2LPM BLEED. TRACH IN PLACED AND SECURED WITH TRACH TIE. BACK UP TRACH AND AMBU BAG AT BEDSIDE. IN LINE TX GIVEN WITH UD ALBUTEROL + UD ATROVENT ORDERED. SUCTION TRACH SMALL AMOUNT THICK PALE YELLOW WITH BLOOD TINGED SECRETIONS. VENT CHECKED, ALARMS WORKING WELL AND AUDIBLE. NO SIGNS OF RESPIRATORY DISTRESS NOTED AT THIS TIME. PPE USED. WILL CONTINUE TO MONITOR.
[2018-09-12 20:00] VITALS: BP 92/57
[2018-09-12] MEDS: ARGINAID GT SCH (21:54)
[2018-09-12] MEDS: MULTIVITAMINS,THERAPEUTIC TABLET GT SCH (21:54)
[2018-09-12] MEDS: RIVAROXABAN 15 MG TABLET PO SCH (21:56)
[2018-09-13] MEDS: AMPICILLIN IV SCH ×4 (00:35→17:01)
[2018-09-13] MEDS: NS IV SCH ×4 (00:35→17:01)
[2018-09-13] MEDS: ALBUTEROL SULFATE 2.5 MG/3 ML NEBU NEB SCH ×4 (01:14→19:20)
[2018-09-13] MEDS: IPRATROPIUM BROMIDE 0.5 MG/2.5 ML NEBU NEB SCH ×4 (01:14→19:20)
--- NOTE | 2018-09-13 04:37 | NUR ---
CONTINUE ON AMPICILLIN IV FOR SACRAL WOUND OSTEOMYELITIS, NO ADVERSE REACTION NOTED, AFEBRILE.
[2018-09-13] MEDS: FAMOTIDINE 40 MG TABLET GT SCH (05:31)
[2018-09-13] MEDS: CHOLECALCIFEROL 1,000 UNIT TABLET GT SCH (05:31)
[2018-09-13] MEDS: FERROUS SULFATE 330 MG/7.5 ML UDC- FOR SA ONLY GT SCH ×3 (05:31→21:26)
[2018-09-13] MEDS: POLYVINYL ALCOHOL OPHT DROPS 15 ML BOTTLE OP SCH ×3 (05:31→21:27)
[2018-09-13 08:03] VITALS: BP 114/62
[2018-09-13] MEDS: ASPIRIN 81 MG TAB.CHEW GT SCH (08:38)
[2018-09-13] MEDS: LOSARTAN POTASSIUM 50 MG TABLET GT SCH (08:39)
[2018-09-13] MEDS: LEVETIRACETAM 500 MG/5 ML LIQUID UDC GT SCH ×2 (08:40→21:25)
[2018-09-13] MEDS: PROTEIN SUPPLEMENT (PROSTAT) 30 ML LIQUID GT SCH ×2 (08:40→17:21)
[2018-09-13] MEDS: METOPROLOL TARTRATE 50 MG TABLET GT SCH ×2 (08:40→21:26)
[2018-09-13] MEDS: ASCORBIC ACID 500 MG TABLET GT SCH ×2 (08:41→21:26)
[2018-09-13] MEDS: Z GUARD REMEDY PASTE 57 GM TUBE TOP SCH ×3 (08:41→21:26)
[2018-09-13] MEDS: COD LIVER OIL/ZINC OXIDE OINT 113 GM TUBE TP SCH ×3 (08:41→17:21)
[2018-09-13] MEDS: LACOSAMIDE 200 MG TABLET XX SCH ×2 (08:41→21:26)
[2018-09-13] MEDS: SODIUM HYPOCHLORITE 0.125% 473 ML BOTTLE TP SCH ×3 (08:41→21:26)
[2018-09-13] MEDS: HYDROGEN PEROXIDE 3% 118 ML BOTTLE TP SCH ×2 (08:41→21:26)
[2018-09-13] MEDS: ARGINAID GT SCH (21:26)
[2018-09-13] MEDS: MULTIVITAMINS,THERAPEUTIC TABLET GT SCH (21:26)
[2018-09-13] MEDS: RIVAROXABAN 15 MG TABLET PO SCH (21:27)
[2018-09-13 22:42] VITALS: BP 120/51
[2018-09-14] MEDS: IPRATROPIUM BROMIDE 0.5 MG/2.5 ML NEBU NEB SCH ×4 (01:25→19:08)
[2018-09-14] MEDS: ALBUTEROL SULFATE 2.5 MG/3 ML NEBU NEB SCH ×4 (01:25→19:08)
--- NOTE | 2018-09-14 03:17 | NUR ---
S/p ampicillin therapy for sacral wound osteomylitis, no adverse reactions noted. Afebrile, on contact isolation for VRE of sacral wound, cordova catheter draining well to clear yellow, good catheter care and daniel care done. Treatment done to sacral wound as ordered, turned and repositioned, kept clean and comfortable.
[2018-09-14] MEDS: GLUCERNA 1.2 1000ML LIQUID GT PRN (04:50)
[2018-09-14] MEDS: POLYVINYL ALCOHOL OPHT DROPS 15 ML BOTTLE OP SCH ×3 (05:08→21:41)
[2018-09-14] MEDS: CHOLECALCIFEROL 1,000 UNIT TABLET GT SCH (05:08)
[2018-09-14] MEDS: FERROUS SULFATE 330 MG/7.5 ML UDC- FOR SA ONLY GT SCH ×3 (05:08→21:41)
[2018-09-14] MEDS: FAMOTIDINE 40 MG TABLET GT SCH (05:46)
[2018-09-14 08:06] VITALS: BP 120/72
[2018-09-14] MEDS: ASPIRIN 81 MG TAB.CHEW GT SCH (08:45)
[2018-09-14] MEDS: METOPROLOL TARTRATE 50 MG TABLET GT SCH ×2 (08:46→21:38)
[2018-09-14] MEDS: LEVETIRACETAM 500 MG/5 ML LIQUID UDC GT SCH ×2 (08:46→21:37)
[2018-09-14] MEDS: LOSARTAN POTASSIUM 50 MG TABLET GT SCH (08:46)
[2018-09-14] MEDS: ASCORBIC ACID 500 MG TABLET GT SCH ×2 (08:46→21:39)
[2018-09-14] MEDS: PROTEIN SUPPLEMENT (PROSTAT) 30 ML LIQUID GT SCH ×2 (08:46→17:01)
[2018-09-14] MEDS: Z GUARD REMEDY PASTE 57 GM TUBE TOP SCH ×3 (08:46→21:40)
[2018-09-14] MEDS: LACOSAMIDE 200 MG TABLET XX SCH ×2 (08:47→21:40)
[2018-09-14] MEDS: SODIUM HYPOCHLORITE 0.125% 473 ML BOTTLE TP SCH ×3 (08:47→21:40)
[2018-09-14] MEDS: HYDROGEN PEROXIDE 3% 118 ML BOTTLE TP SCH ×2 (08:47→21:40)
[2018-09-14] MEDS: COD LIVER OIL/ZINC OXIDE OINT 113 GM TUBE TP SCH ×3 (08:47→17:01)
[2018-09-14] MEDS: ARGINAID GT SCH (21:38)
[2018-09-14] MEDS: MULTIVITAMINS,THERAPEUTIC TABLET GT SCH (21:38)
[2018-09-14] MEDS: RIVAROXABAN 15 MG TABLET PO SCH (21:44)
[2018-09-14 22:52] VITALS: BP 123/48
[2018-09-15] MEDS: ALBUTEROL SULFATE 2.5 MG/3 ML NEBU NEB SCH ×4 (00:59→20:26)
[2018-09-15] MEDS: IPRATROPIUM BROMIDE 0.5 MG/2.5 ML NEBU NEB SCH ×4 (00:59→20:26)
[2018-09-15] MEDS: GLUCERNA 1.2 1000ML LIQUID GT PRN ×2 (02:52→23:07)
[2018-09-15] MEDS: FERROUS SULFATE 330 MG/7.5 ML UDC- FOR SA ONLY GT SCH ×3 (05:26→22:14)
[2018-09-15] MEDS: CHOLECALCIFEROL 1,000 UNIT TABLET GT SCH (05:26)
[2018-09-15] MEDS: POLYVINYL ALCOHOL OPHT DROPS 15 ML BOTTLE OP SCH ×3 (05:26→22:14)
[2018-09-15] MEDS: FAMOTIDINE 40 MG TABLET GT SCH (05:50)
[2018-09-15] MEDS: ASPIRIN 81 MG TAB.CHEW GT SCH (09:48)
[2018-09-15] MEDS: ASCORBIC ACID 500 MG TABLET GT SCH ×2 (09:49→21:00)
[2018-09-15] MEDS: Z GUARD REMEDY PASTE 57 GM TUBE TOP SCH ×3 (09:49→21:00)
[2018-09-15] MEDS: METOPROLOL TARTRATE 50 MG TABLET GT SCH ×2 (09:49→21:00)
[2018-09-15] MEDS: LEVETIRACETAM 500 MG/5 ML LIQUID UDC GT SCH ×2 (09:49→21:00)
[2018-09-15] MEDS: LOSARTAN POTASSIUM 50 MG TABLET GT SCH (09:49)
[2018-09-15] MEDS: PROTEIN SUPPLEMENT (PROSTAT) 30 ML LIQUID GT SCH ×2 (09:49→17:35)
[2018-09-15] MEDS: SODIUM HYPOCHLORITE 0.125% 473 ML BOTTLE TP SCH ×3 (09:50→21:00)
[2018-09-15] MEDS: LACOSAMIDE 200 MG TABLET XX SCH ×2 (09:50→21:00)
[2018-09-15] MEDS: COD LIVER OIL/ZINC OXIDE OINT 113 GM TUBE TP SCH ×3 (09:50→17:36)
[2018-09-15] MEDS: HYDROGEN PEROXIDE 3% 118 ML BOTTLE TP SCH ×2 (09:50→21:00)
[2018-09-15 11:38] VITALS: BP 113/44
[2018-09-15 20:28] VITALS: BP 92/51
[2018-09-15] MEDS: RIVAROXABAN 15 MG TABLET PO SCH (21:00)
[2018-09-15] MEDS: ARGINAID GT SCH (21:00)
[2018-09-15] MEDS: MULTIVITAMINS,THERAPEUTIC TABLET GT SCH (21:00)
[2018-09-16] MEDS: IPRATROPIUM BROMIDE 0.5 MG/2.5 ML NEBU NEB SCH ×4 (01:40→19:38)
[2018-09-16] MEDS: ALBUTEROL SULFATE 2.5 MG/3 ML NEBU NEB SCH ×4 (01:40→19:38)
[2018-09-16] MEDS: CHOLECALCIFEROL 1,000 UNIT TABLET GT SCH (05:47)
[2018-09-16] MEDS: FERROUS SULFATE 330 MG/7.5 ML UDC- FOR SA ONLY GT SCH ×3 (05:47→21:35)
[2018-09-16] MEDS: POLYVINYL ALCOHOL OPHT DROPS 15 ML BOTTLE OP SCH ×3 (05:47→21:35)
[2018-09-16] MEDS: FAMOTIDINE 40 MG TABLET GT SCH (05:47)
[2018-09-16] MEDS: ASPIRIN 81 MG TAB.CHEW GT SCH (08:16)
[2018-09-16] MEDS: LEVETIRACETAM 500 MG/5 ML LIQUID UDC GT SCH ×2 (08:17→20:40)
[2018-09-16] MEDS: LOSARTAN POTASSIUM 50 MG TABLET GT SCH (08:17)
[2018-09-16] MEDS: PROTEIN SUPPLEMENT (PROSTAT) 30 ML LIQUID GT SCH ×2 (08:18→17:33)
[2018-09-16] MEDS: HYDROGEN PEROXIDE 3% 118 ML BOTTLE TP SCH ×2 (08:18→20:42)
[2018-09-16] MEDS: ASCORBIC ACID 500 MG TABLET GT SCH ×2 (08:18→20:41)
[2018-09-16] MEDS: SODIUM HYPOCHLORITE 0.125% 473 ML BOTTLE TP SCH ×3 (08:18→20:42)
[2018-09-16] MEDS: Z GUARD REMEDY PASTE 57 GM TUBE TOP SCH ×3 (08:18→20:41)
[2018-09-16] MEDS: METOPROLOL TARTRATE 50 MG TABLET GT SCH ×2 (08:18→20:40)
[2018-09-16] MEDS: COD LIVER OIL/ZINC OXIDE OINT 113 GM TUBE TP SCH ×3 (08:18→17:34)
[2018-09-16] MEDS: LACOSAMIDE 200 MG TABLET XX SCH ×2 (08:19→20:42)
[2018-09-16 08:30] VITALS: BP 121/61
--- NOTE | 2018-09-16 11:20 | NUR ---
OBSERVED AT THIS TIME WITH SACRAL WOUND FOLLOW: 4.3X4X1 CM,UNDERMINING 12 TO 3 = 1.8cm ,WOUND BED RED AND MOIST,NO VISIBLE NECROTIC TISSUE ,NO YELLOW SLOUGH ,NO FOUL ODOR,PERIWOUND RED AND PINK AND ERYTHEMA ON SURROUNDING SKIN AND MODERATED SEROSANGUINEOUS DRAINAGE ,GRANULATION FROM THE BOTTOM TO THE TOP.PICTURE TAKEN.LOCAL TX ORDERED PT. ON S/P IV ATB AMPICILLIN,REMAINS AFEBRILE WITHOUT ANY DISTRESS.
--- NOTE | 2018-09-16 19:38 | NUR ---
Patient endorsed on HT-50 vent with settings of AC 12,Vt 500, +5, 2LpmO2 bleed in. Shiley 6 DCT: AIRPLANE DISPATCH CLERK used for cuff assessment/inflation. SXN PRN; small amounts of thick pale yellow secretions. No SOB noted. Inline HHN treatment administered as ordered and tolerated well. Spare trach at bedside. Will continue to monitoR.
[2018-09-16 20:12] VITALS: BP 108/52
[2018-09-16] MEDS: ARGINAID GT SCH (20:40)
[2018-09-16] MEDS: RIVAROXABAN 15 MG TABLET PO SCH (20:40)
[2018-09-16] MEDS: MULTIVITAMINS,THERAPEUTIC TABLET GT SCH (20:40)
[2018-09-17] MEDS: GLUCERNA 1.2 1000ML LIQUID GT PRN ×2 (01:18→22:00)
[2018-09-17] MEDS: IPRATROPIUM BROMIDE 0.5 MG/2.5 ML NEBU NEB SCH ×4 (02:11→19:16)
[2018-09-17] MEDS: ALBUTEROL SULFATE 2.5 MG/3 ML NEBU NEB SCH ×4 (02:11→19:16)
[2018-09-17] MEDS: FERROUS SULFATE 330 MG/7.5 ML UDC- FOR SA ONLY GT SCH ×3 (05:34→21:36)
[2018-09-17] MEDS: CHOLECALCIFEROL 1,000 UNIT TABLET GT SCH (05:34)
[2018-09-17] MEDS: POLYVINYL ALCOHOL OPHT DROPS 15 ML BOTTLE OP SCH ×3 (05:34→21:36)
[2018-09-17] MEDS: FAMOTIDINE 40 MG TABLET GT SCH (05:34)
--- NOTE | 2018-09-17 08:00 | NUR ---
PT RECEIVED ON CONTINUOUS VENT AC 12 VT 500 PEEP 5 FIO2 2LPM BLEED. VENT CHECKED, ALARMS WORKING WELL AND AUDIBLE. TRACH IN PLACED AND SECURED WITH TRACH TIE. BACK UP TRACH AND AMBU BAG AT BEDSIDE. IN LINE TX GIVEN WITH UD ALBUTEROL + UD ATROVENT ORDERED. SUCTION TRACH SMALL AMOUNT THICK PALE YELLOW SECRETIONS. NO SIGNS OF RESPIRATORY DISTRESS NOTED AT THIS TIME. PPE USED. WILL CONTINUE TO MONITOR.
[2018-09-17] MEDS: Z GUARD REMEDY PASTE 57 GM TUBE TOP SCH ×3 (09:37→20:09)
[2018-09-17] MEDS: LEVETIRACETAM 500 MG/5 ML LIQUID UDC GT SCH ×2 (09:37→20:08)
[2018-09-17] MEDS: METOPROLOL TARTRATE 50 MG TABLET GT SCH ×2 (09:37→20:08)
[2018-09-17] MEDS: PROTEIN SUPPLEMENT (PROSTAT) 30 ML LIQUID GT SCH ×2 (09:37→17:10)
[2018-09-17] MEDS: LOSARTAN POTASSIUM 50 MG TABLET GT SCH (09:37)
[2018-09-17] MEDS: ASCORBIC ACID 500 MG TABLET GT SCH ×2 (09:37→20:08)
[2018-09-17] MEDS: ASPIRIN 81 MG TAB.CHEW GT SCH (09:37)
[2018-09-17] MEDS: LACOSAMIDE 200 MG TABLET XX SCH ×2 (09:38→20:09)
[2018-09-17] MEDS: SODIUM HYPOCHLORITE 0.125% 473 ML BOTTLE TP SCH ×2 (09:38→21:36)
[2018-09-17] MEDS: COD LIVER OIL/ZINC OXIDE OINT 113 GM TUBE TP SCH ×2 (09:38→12:22)
[2018-09-17] MEDS: HYDROGEN PEROXIDE 3% 118 ML BOTTLE TP SCH ×2 (09:38→20:09)
[2018-09-17 11:17] VITALS: BP 151/66
--- NOTE | 2018-09-17 14:00 | NUR ---
SEEN BY WAYNE ROBERTS AND WITH NEW ORDER FOR LOCAL TX CARRIED OUT.
[2018-09-17] MEDS ORDERED: THERAHONEY GEL 1.5 OZ TUBE TOP PRN (17:30)
[2018-09-17] MEDS ORDERED: SODIUM HYPOCHLORITE 0.125% 473 ML BOTTLE TP PRN (17:30)
[2018-09-17 19:50] VITALS: BP 108/52
[2018-09-17] MEDS: MULTIVITAMINS,THERAPEUTIC TABLET GT SCH (20:08)
[2018-09-17] MEDS: ARGINAID GT SCH (20:08)
[2018-09-17] MEDS: RIVAROXABAN 15 MG TABLET PO SCH (20:22)
--- NOTE | 2018-09-17 21:17 | NUR ---
Patient recieved on on HT-50 settings A/C 12, VT 500, PEEP +5 and 2 LPM bleed in O2. No resp. distress noted. Shiley [address], patent and secure. Pt to be monitored throughout the shift, PRN SX and adm'd resp neb txs per MD orders. HT-50 alarm parameters have been checked and remain audible.
[2018-09-17] MEDS: THERAHONEY GEL 1.5 OZ TUBE TOP SCH (21:36)
[2018-09-18] MEDS: IPRATROPIUM BROMIDE 0.5 MG/2.5 ML NEBU NEB SCH ×4 (00:57→20:15)
[2018-09-18] MEDS: ALBUTEROL SULFATE 2.5 MG/3 ML NEBU NEB SCH ×4 (00:57→20:15)
[2018-09-18] MEDS: POLYVINYL ALCOHOL OPHT DROPS 15 ML BOTTLE OP SCH ×3 (06:31→22:27)
[2018-09-18] MEDS: CHOLECALCIFEROL 1,000 UNIT TABLET GT SCH (06:31)
[2018-09-18] MEDS: FERROUS SULFATE 330 MG/7.5 ML UDC- FOR SA ONLY GT SCH ×3 (06:31→22:27)
[2018-09-18] MEDS: FAMOTIDINE 40 MG TABLET GT SCH (06:31)
[2018-09-18] MEDS: ASPIRIN 81 MG TAB.CHEW GT SCH (08:47)
[2018-09-18] MEDS: LOSARTAN POTASSIUM 50 MG TABLET GT SCH (08:54)
[2018-09-18] MEDS: LEVETIRACETAM 500 MG/5 ML LIQUID UDC GT SCH ×2 (08:56→20:34)
[2018-09-18] MEDS: PROTEIN SUPPLEMENT (PROSTAT) 30 ML LIQUID GT SCH ×2 (08:57→17:53)
[2018-09-18] MEDS: ASCORBIC ACID 500 MG TABLET GT SCH ×2 (08:57→20:41)
[2018-09-18] MEDS: METOPROLOL TARTRATE 50 MG TABLET GT SCH ×2 (08:57→20:39)
[2018-09-18] MEDS: Z GUARD REMEDY PASTE 57 GM TUBE TOP SCH ×3 (08:58→20:42)
[2018-09-18] MEDS: THERAHONEY GEL 1.5 OZ TUBE TOP SCH ×2 (08:58→20:42)
[2018-09-18] MEDS: SODIUM HYPOCHLORITE 0.125% 473 ML BOTTLE TP SCH ×2 (08:59→20:42)
[2018-09-18] MEDS: HYDROGEN PEROXIDE 3% 118 ML BOTTLE TP SCH ×2 (09:00→20:42)
[2018-09-18] MEDS: LACOSAMIDE 200 MG TABLET XX SCH ×2 (09:00→20:42)
[2018-09-18 11:31] VITALS: BP 165/67
[2018-09-18] MEDS: ARGINAID GT SCH (20:40)
[2018-09-18] MEDS: MULTIVITAMINS,THERAPEUTIC TABLET GT SCH (20:41)
[2018-09-18] MEDS: RIVAROXABAN 15 MG TABLET PO SCH (20:42)
[2018-09-18 20:48] VITALS: BP 116/50
--- NOTE | 2018-09-18 21:43 | NUR ---
Seen notes from Dr. Pace with no new orders.
[2018-09-18] MEDS: GLUCERNA 1.2 1000ML LIQUID GT PRN (22:40)
[2018-09-19] MEDS: ALBUTEROL SULFATE 2.5 MG/3 ML NEBU NEB SCH ×4 (02:00→19:08)
[2018-09-19] MEDS: IPRATROPIUM BROMIDE 0.5 MG/2.5 ML NEBU NEB SCH ×4 (02:00→19:08)
[2018-09-19] MEDS: FERROUS SULFATE 330 MG/7.5 ML UDC- FOR SA ONLY GT SCH ×3 (05:56→22:30)
[2018-09-19] MEDS: POLYVINYL ALCOHOL OPHT DROPS 15 ML BOTTLE OP SCH ×3 (05:56→22:30)
[2018-09-19] MEDS: CHOLECALCIFEROL 1,000 UNIT TABLET GT SCH (05:56)
[2018-09-19] MEDS: FAMOTIDINE 40 MG TABLET GT SCH (05:56)
[2018-09-19] MEDS: ASPIRIN 81 MG TAB.CHEW GT SCH (08:07)
[2018-09-19] MEDS: Z GUARD REMEDY PASTE 57 GM TUBE TOP SCH ×3 (08:08→20:27)
[2018-09-19] MEDS: PROTEIN SUPPLEMENT (PROSTAT) 30 ML LIQUID GT SCH ×2 (08:08→17:38)
[2018-09-19] MEDS: THERAHONEY GEL 1.5 OZ TUBE TOP SCH ×2 (08:08→21:00)
[2018-09-19] MEDS: METOPROLOL TARTRATE 50 MG TABLET GT SCH ×2 (08:08→20:25)
[2018-09-19] MEDS: ASCORBIC ACID 500 MG TABLET GT SCH ×2 (08:08→20:26)
[2018-09-19] MEDS: HYDROGEN PEROXIDE 3% 118 ML BOTTLE TP SCH ×2 (08:08→20:27)
[2018-09-19] MEDS: LOSARTAN POTASSIUM 50 MG TABLET GT SCH (08:08)
[2018-09-19] MEDS: LEVETIRACETAM 500 MG/5 ML LIQUID UDC GT SCH ×2 (08:08→20:24)
[2018-09-19] MEDS: SODIUM HYPOCHLORITE 0.125% 473 ML BOTTLE TP SCH ×2 (08:08→21:00)
[2018-09-19] MEDS: LACOSAMIDE 200 MG TABLET XX SCH ×2 (08:08→20:27)
[2018-09-19 10:45] VITALS: BP 129/62
[2018-09-19] MEDS: ARGINAID GT SCH (20:26)
[2018-09-19] MEDS: MULTIVITAMINS,THERAPEUTIC TABLET GT SCH (20:26)
[2018-09-19] MEDS: RIVAROXABAN 15 MG TABLET PO SCH (20:27)
[2018-09-19] MEDS: GLUCERNA 1.2 1000ML LIQUID GT PRN (20:30)
[2018-09-19 20:35] VITALS: BP 102/48
--- NOTE | 2018-09-19 20:38 | NUR ---
Pt recieved on on HT-50 settings A/C 12, VT 500, PEEP +5 and 2 LPM bleed in O2. No resp. distress noted. Shiley [address], patent and secure. B/U Shiley 6 and BVM are at bedside. Pt to be monitored throughout the shift, PRN SX and adm'd resp neb txs per MD orders. HT-50 alarm parameters have been checked and remain audible.
[2018-09-20] MEDS: ALBUTEROL SULFATE 2.5 MG/3 ML NEBU NEB SCH ×4 (00:55→19:22)
[2018-09-20] MEDS: IPRATROPIUM BROMIDE 0.5 MG/2.5 ML NEBU NEB SCH ×4 (00:55→19:22)
[2018-09-20] MEDS: FAMOTIDINE 40 MG TABLET GT SCH (05:48)
[2018-09-20] MEDS: CHOLECALCIFEROL 1,000 UNIT TABLET GT SCH (05:48)
[2018-09-20] MEDS: FERROUS SULFATE 330 MG/7.5 ML UDC- FOR SA ONLY GT SCH ×3 (05:48→22:00)
[2018-09-20] MEDS: POLYVINYL ALCOHOL OPHT DROPS 15 ML BOTTLE OP SCH ×3 (05:48→22:00)
[2018-09-20] MEDS: ASPIRIN 81 MG TAB.CHEW GT SCH (08:00)
[2018-09-20] MEDS: LEVETIRACETAM 500 MG/5 ML LIQUID UDC GT SCH ×2 (08:00→20:46)
[2018-09-20] MEDS: LOSARTAN POTASSIUM 50 MG TABLET GT SCH (08:00)
[2018-09-20] MEDS: Z GUARD REMEDY PASTE 57 GM TUBE TOP SCH ×3 (08:01→20:47)
[2018-09-20] MEDS: PROTEIN SUPPLEMENT (PROSTAT) 30 ML LIQUID GT SCH ×2 (08:01→17:53)
[2018-09-20] MEDS: HYDROGEN PEROXIDE 3% 118 ML BOTTLE TP SCH ×2 (08:01→20:48)
[2018-09-20] MEDS: SODIUM HYPOCHLORITE 0.125% 473 ML BOTTLE TP SCH ×2 (08:01→20:48)
[2018-09-20] MEDS: METOPROLOL TARTRATE 50 MG TABLET GT SCH ×2 (08:01→20:47)
[2018-09-20] MEDS: LACOSAMIDE 200 MG TABLET XX SCH ×2 (08:01→20:48)
[2018-09-20] MEDS: THERAHONEY GEL 1.5 OZ TUBE TOP SCH ×2 (08:01→20:48)
[2018-09-20] MEDS: ASCORBIC ACID 500 MG TABLET GT SCH ×2 (08:01→20:47)
[2018-09-20 08:08] VITALS: BP 109/67
[2018-09-20] MEDS: GLUCERNA 1.2 1000ML LIQUID GT PRN (17:53)
[2018-09-20 20:44] VITALS: BP 105/50
[2018-09-20] MEDS: MULTIVITAMINS,THERAPEUTIC TABLET GT SCH (20:47)
[2018-09-20] MEDS: ARGINAID GT SCH (20:47)
[2018-09-20] MEDS: RIVAROXABAN 15 MG TABLET PO SCH (20:55)
--- NOTE | 2018-09-21 | NUR ---
PT ON CONT HT 50 VENT WITH SHILEY # [address] and secured, with same current vent settings, pt does assist at times, with good cough effort, suctioned light pale yell tinge secretions, check cuff, change hme, all vent alarms good, no vent changes made at this time, pt stable, neb inline with albuterol/ atrovent toll well. Emily STRAUSSP Addendum: 09/21/18 at 0003 by PAIGE HOWELL RT Amended: Links added.
[2018-09-21] MEDS: ALBUTEROL SULFATE 2.5 MG/3 ML NEBU NEB SCH ×4 (01:30→19:03)
[2018-09-21] MEDS: IPRATROPIUM BROMIDE 0.5 MG/2.5 ML NEBU NEB SCH ×4 (01:30→19:03)
[2018-09-21] MEDS: FERROUS SULFATE 330 MG/7.5 ML UDC- FOR SA ONLY GT SCH ×3 (05:11→21:04)
[2018-09-21] MEDS: POLYVINYL ALCOHOL OPHT DROPS 15 ML BOTTLE OP SCH ×3 (05:11→21:04)
[2018-09-21] MEDS: CHOLECALCIFEROL 1,000 UNIT TABLET GT SCH (05:11)
[2018-09-21] MEDS: FAMOTIDINE 40 MG TABLET GT SCH (05:11)
--- NOTE | 2018-09-21 07:50 | NUR ---
Pt received in semi tellez position, obtunded, unable to communicate, and on continuous mechanical ventilation via Shiley 6 DCT trach. Pt is on [place] HT-50 ventilator with ordered settings of A/C-12, VT-500, PEEP+5, FIO2-28% 2LPM Bleed-in oxygen. Tolerating vent settings well. SpO2-98% Trach is patent and secured. Minimal occluding volume technique used to assess cuff inflation. In-line nebulizer treatments given as ordered, Q6 with Albuterol/Atrovent. Treatments tolerated well, with no adverse reactions noted. Sxn'd and lavaged as needed. Suctioned small amounts of thick white/yellowish secretions. HME changed. PPE used. No signs or symptoms of respiratory distress. Ventilator alarm parameters checked, on and audible. Vent plugged into red emergency outlet. Bag/valve/mask and backup trach at bedside. Will continue to monitor.
[2018-09-21 08:11] VITALS: BP 118/48
[2018-09-21] MEDS: LEVETIRACETAM 500 MG/5 ML LIQUID UDC GT SCH ×2 (08:14→20:59)
[2018-09-21] MEDS: ASPIRIN 81 MG TAB.CHEW GT SCH (08:14)
[2018-09-21] MEDS: LOSARTAN POTASSIUM 50 MG TABLET GT SCH (08:14)
[2018-09-21] MEDS: METOPROLOL TARTRATE 50 MG TABLET GT SCH ×2 (08:15→21:00)
[2018-09-21] MEDS: Z GUARD REMEDY PASTE 57 GM TUBE TOP SCH ×3 (08:15→21:00)
[2018-09-21] MEDS: PROTEIN SUPPLEMENT (PROSTAT) 30 ML LIQUID GT SCH ×2 (08:15→17:46)
[2018-09-21] MEDS: ASCORBIC ACID 500 MG TABLET GT SCH ×2 (08:15→21:00)
[2018-09-21] MEDS: SODIUM HYPOCHLORITE 0.125% 473 ML BOTTLE TP SCH ×2 (08:16→21:00)
[2018-09-21] MEDS: LACOSAMIDE 200 MG TABLET XX SCH ×2 (08:16→21:04)
[2018-09-21] MEDS: HYDROGEN PEROXIDE 3% 118 ML BOTTLE TP SCH ×2 (08:16→21:00)
[2018-09-21] MEDS: THERAHONEY GEL 1.5 OZ TUBE TOP SCH ×2 (08:16→21:00)
[2018-09-21] MEDS: GLUCERNA 1.2 1000ML LIQUID GT PRN (14:30)
[2018-09-21 20:19] VITALS: BP 107/45
[2018-09-21] MEDS: MULTIVITAMINS,THERAPEUTIC TABLET GT SCH (21:00)
[2018-09-21] MEDS: ARGINAID GT SCH (21:00)
[2018-09-21] MEDS: RIVAROXABAN 15 MG TABLET PO SCH (21:04)
[2018-09-22] MEDS: IPRATROPIUM BROMIDE 0.5 MG/2.5 ML NEBU NEB SCH ×4 (01:02→19:29)
[2018-09-22] MEDS: ALBUTEROL SULFATE 2.5 MG/3 ML NEBU NEB SCH ×4 (01:02→19:29)
--- NOTE | 2018-09-22 01:04 | NUR ---
PT ON CONT HT 50 VENT WITH SHILEY # 6 TRACH IN PLAC AND SECURED, WITH SAME CURRENT VENT SETTINGS, PT DOES ASSIST AT TIMES, CHECK CUFF, CHANGE HME, CHANGE GUZMAN AND INLINE ADAPTER, SUCTIONED LIGHT PALE YELL TINGE SECRETIONS, ALL VENT ALARMS GOOD, NEB INLINE WITH ALBUTEROL/ ATROVENT TOLL WELL, NO VENT CHANGES MADE, PT STABLE.Emily STRAUSSP Addendum: 09/22/18 at 0106 by PAIGE HOWELL RT Amended: Links added.
[2018-09-22] MEDS: CHOLECALCIFEROL 1,000 UNIT TABLET GT SCH (06:15)
[2018-09-22] MEDS: FERROUS SULFATE 330 MG/7.5 ML UDC- FOR SA ONLY GT SCH ×3 (06:15→21:16)
[2018-09-22] MEDS: FAMOTIDINE 40 MG TABLET GT SCH (06:15)
[2018-09-22] MEDS: POLYVINYL ALCOHOL OPHT DROPS 15 ML BOTTLE OP SCH ×3 (06:15→21:16)
[2018-09-22 08:04] VITALS: BP 106/54
[2018-09-22] MEDS: LOSARTAN POTASSIUM 50 MG TABLET GT SCH (08:47)
[2018-09-22] MEDS: ASPIRIN 81 MG TAB.CHEW GT SCH (08:47)
[2018-09-22] MEDS: LEVETIRACETAM 500 MG/5 ML LIQUID UDC GT SCH ×2 (08:47→20:56)
[2018-09-22] MEDS: METOPROLOL TARTRATE 50 MG TABLET GT SCH ×2 (08:48→20:56)
[2018-09-22] MEDS: PROTEIN SUPPLEMENT (PROSTAT) 30 ML LIQUID GT SCH ×2 (08:48→17:37)
[2018-09-22] MEDS: THERAHONEY GEL 1.5 OZ TUBE TOP SCH ×2 (08:49→20:56)
[2018-09-22] MEDS: Z GUARD REMEDY PASTE 57 GM TUBE TOP SCH ×3 (08:49→20:56)
[2018-09-22] MEDS: ASCORBIC ACID 500 MG TABLET GT SCH ×2 (08:49→20:56)
[2018-09-22] MEDS: SODIUM HYPOCHLORITE 0.125% 473 ML BOTTLE TP SCH ×2 (08:49→20:56)
[2018-09-22] MEDS: HYDROGEN PEROXIDE 3% 118 ML BOTTLE TP SCH ×2 (08:50→20:56)
[2018-09-22] MEDS: LACOSAMIDE 200 MG TABLET XX SCH ×2 (08:50→20:56)
--- NOTE | 2018-09-22 11:40 | NUR ---
Pt received in semi tellez position, obtunded, unable to communicate, and on continuous mechanical ventilation via Shiley 6 DCT trach. Pt is on [place] HT-50 ventilator with ordered settings of A/C-12, VT-500, PEEP+5, FIO2-28% 2LPM Bleed-in oxygen. Tolerating vent settings well. Trach is patent and secured. Minimal occluding volume technique used to assess cuff inflation. In-line nebulizer treatments given as ordered, Q6 with Albuterol/Atrovent. Treatments tolerated well, with no adverse reactions noted. Sxn'd and lavaged as needed. Suctioned small amounts of thick yellowish white secretions. HME changed. PPE used. No signs or symptoms of respiratory distress. Ventilator alarm parameters checked, on and audible. Vent plugged into red emergency outlet. Bag/valve/mask and backup trach at bedside. Will continue to monitor.
[2018-09-22 20:28] VITALS: BP 109/60
[2018-09-22] MEDS: ARGINAID GT SCH (20:56)
[2018-09-22] MEDS: MULTIVITAMINS,THERAPEUTIC TABLET GT SCH (20:56)
[2018-09-22] MEDS: RIVAROXABAN 15 MG TABLET PO SCH (20:58)
--- NOTE | 2018-09-22 23:58 | NUR ---
PT ON CONT HT 50 VENT WITH SHILEY # [address] AND SECURED, WITH SAME CURRENT VENT SETTINGS, SUCTIONED LIGHT PALE YELL TINGE SECRETIONS, GOOD COUGH EFFORT, NO VENT CHANGES MADE AT THIS TIME, ALL VENT ALARMS GOOD, CHANGE HME AND CHECK CUFF, PT STABLE.Emily STRAUSSP Addendum: 09/23/18 at 0001 by PAIGE HOWELL RT Amended: Links added.
[2018-09-23] MEDS: ALBUTEROL SULFATE 2.5 MG/3 ML NEBU NEB SCH ×4 (01:22→19:08)
[2018-09-23] MEDS: IPRATROPIUM BROMIDE 0.5 MG/2.5 ML NEBU NEB SCH ×4 (01:22→19:08)
[2018-09-23] MEDS: CHOLECALCIFEROL 1,000 UNIT TABLET GT SCH (06:01)
[2018-09-23] MEDS: FERROUS SULFATE 330 MG/7.5 ML UDC- FOR SA ONLY GT SCH ×3 (06:01→21:02)
[2018-09-23] MEDS: FAMOTIDINE 40 MG TABLET GT SCH (06:01)
[2018-09-23] MEDS: POLYVINYL ALCOHOL OPHT DROPS 15 ML BOTTLE OP SCH ×3 (06:01→21:02)
[2018-09-23 08:07] VITALS: BP 109/56
[2018-09-23] MEDS: LOSARTAN POTASSIUM 50 MG TABLET GT SCH (08:26)
[2018-09-23] MEDS: ASPIRIN 81 MG TAB.CHEW GT SCH (08:26)
[2018-09-23] MEDS: LEVETIRACETAM 500 MG/5 ML LIQUID UDC GT SCH ×2 (08:26→21:01)
[2018-09-23] MEDS: METOPROLOL TARTRATE 50 MG TABLET GT SCH ×2 (08:27→21:02)
[2018-09-23] MEDS: THERAHONEY GEL 1.5 OZ TUBE TOP SCH ×2 (08:28→21:02)
[2018-09-23] MEDS: SODIUM HYPOCHLORITE 0.125% 473 ML BOTTLE TP SCH ×2 (08:28→21:02)
[2018-09-23] MEDS: PROTEIN SUPPLEMENT (PROSTAT) 30 ML LIQUID GT SCH ×2 (08:28→17:10)
[2018-09-23] MEDS: LACOSAMIDE 200 MG TABLET XX SCH ×2 (08:28→21:02)
[2018-09-23] MEDS: Z GUARD REMEDY PASTE 57 GM TUBE TOP SCH ×3 (08:28→21:02)
[2018-09-23] MEDS: ASCORBIC ACID 500 MG TABLET GT SCH ×2 (08:28→21:02)
[2018-09-23] MEDS: HYDROGEN PEROXIDE 3% 118 ML BOTTLE TP SCH ×2 (08:28→21:02)
[2018-09-23] MEDS: GLUCERNA 1.2 1000ML LIQUID GT PRN (12:01)
[2018-09-23 20:32] VITALS: BP 113/58
[2018-09-23] MEDS: ARGINAID GT SCH (21:02)
[2018-09-23] MEDS: MULTIVITAMINS,THERAPEUTIC TABLET GT SCH (21:02)
[2018-09-23] MEDS: RIVAROXABAN 15 MG TABLET PO SCH (21:02)
[2018-09-24] MEDS: ALBUTEROL SULFATE 2.5 MG/3 ML NEBU NEB SCH ×4 (00:58→19:25)
[2018-09-24] MEDS: IPRATROPIUM BROMIDE 0.5 MG/2.5 ML NEBU NEB SCH ×4 (00:58→19:25)
[2018-09-24] MEDS: CHOLECALCIFEROL 1,000 UNIT TABLET GT SCH (05:53)
[2018-09-24] MEDS: POLYVINYL ALCOHOL OPHT DROPS 15 ML BOTTLE OP SCH ×3 (05:53→22:04)
[2018-09-24] MEDS: FERROUS SULFATE 330 MG/7.5 ML UDC- FOR SA ONLY GT SCH ×3 (05:53→22:04)
[2018-09-24] MEDS: FAMOTIDINE 40 MG TABLET GT SCH (05:54)
--- NOTE | 2018-09-24 06:00 | NUR ---
Cordova catheter was pulled out, noted with minimal bleeding, re-inserted cordova fr#18X 10ml tolerated procedure well, noted yellow urine draining well, kept patient clean and comfortable, will continue monitor.
[2018-09-24 08:05] VITALS: BP 113/60
[2018-09-24] MEDS: LACOSAMIDE 200 MG TABLET XX SCH ×2 (09:01→21:00)
[2018-09-24] MEDS: LEVETIRACETAM 500 MG/5 ML LIQUID UDC GT SCH ×2 (09:27→21:00)
[2018-09-24] MEDS: ASPIRIN 81 MG TAB.CHEW GT SCH (09:27)
[2018-09-24] MEDS: LOSARTAN POTASSIUM 50 MG TABLET GT SCH (09:27)
[2018-09-24] MEDS: METOPROLOL TARTRATE 50 MG TABLET GT SCH ×2 (09:28→21:00)
[2018-09-24] MEDS: ASCORBIC ACID 500 MG TABLET GT SCH ×2 (09:28→21:00)
[2018-09-24] MEDS: PROTEIN SUPPLEMENT (PROSTAT) 30 ML LIQUID GT SCH ×2 (09:28→17:27)
[2018-09-24] MEDS: Z GUARD REMEDY PASTE 57 GM TUBE TOP SCH ×3 (09:29→21:00)
[2018-09-24] MEDS: HYDROGEN PEROXIDE 3% 118 ML BOTTLE TP SCH ×2 (09:29→21:00)
[2018-09-24] MEDS: GLUCERNA 1.2 1000ML LIQUID GT PRN (09:29)
[2018-09-24] MEDS: HYDROCODONE/APAP 5-325MG TABLET GT PRN (09:30)
[2018-09-24] MEDS: THERAHONEY GEL 1.5 OZ TUBE TOP SCH ×2 (09:59→21:00)
[2018-09-24] MEDS: SODIUM HYPOCHLORITE 0.125% 473 ML BOTTLE TP SCH ×2 (09:59→21:00)
--- NOTE | 2018-09-24 19:27 | NUR ---
Pt received on HT-50 ventilator with the following settings of AC-12, Vt-500, PEEP+5, FIO2-2LPM bleed-in, trached with Shiley#6 DCT trach, which is in the place and secure. No respiratory distress noted. Airway care done, pt responded to physical stimuli. In-line HHN tx with 2.5mg Albuterol+0.5mg Atrovent given, pt tolerated well. HME changed. PPE used. Family visited. Resus. bag and back up trach at bedside. Vent and alarms checked and reset.
[2018-09-24 20:17] VITALS: BP 113/57
[2018-09-24] MEDS: MULTIVITAMINS,THERAPEUTIC TABLET GT SCH (21:00)
[2018-09-24] MEDS: RIVAROXABAN 15 MG TABLET PO SCH (21:00)
[2018-09-24] MEDS: ARGINAID GT SCH (21:00)
--- NOTE | 2018-09-24 21:00 | NUR ---
Fidel held due to pinkish colored urine output. charge nurse aware.
[2018-09-25] MEDS: ALBUTEROL SULFATE 2.5 MG/3 ML NEBU NEB SCH ×4 (00:58→19:28)
[2018-09-25] MEDS: IPRATROPIUM BROMIDE 0.5 MG/2.5 ML NEBU NEB SCH ×4 (00:58→19:28)
[2018-09-25] MEDS: CHOLECALCIFEROL 1,000 UNIT TABLET GT SCH (05:19)
[2018-09-25] MEDS: POLYVINYL ALCOHOL OPHT DROPS 15 ML BOTTLE OP SCH ×3 (05:19→21:46)
[2018-09-25] MEDS: FERROUS SULFATE 330 MG/7.5 ML UDC- FOR SA ONLY GT SCH ×3 (05:19→21:38)
[2018-09-25] MEDS: FAMOTIDINE 40 MG TABLET GT SCH (06:09)
[2018-09-25] MEDS: GLUCERNA 1.2 1000ML LIQUID GT PRN (06:09)
--- NOTE | 2018-09-25 06:52 | NUR ---
Patient is asleep, afebrile, no signs of any distress noted. Fletcher catheter is draining well to clear yellow urine, good daniel care rendered, turned and repositioned, Kept clean and comfortable.
[2018-09-25] MEDS: LOSARTAN POTASSIUM 50 MG TABLET GT SCH (09:00)
[2018-09-25] MEDS: ASPIRIN 81 MG TAB.CHEW GT SCH (09:00)
[2018-09-25] MEDS: HYDROCODONE/APAP 5-325MG TABLET GT PRN (09:31)
[2018-09-25] MEDS: LACOSAMIDE 200 MG TABLET XX SCH ×2 (09:31→21:38)
[2018-09-25] MEDS: LEVETIRACETAM 500 MG/5 ML LIQUID UDC GT SCH ×2 (09:34→21:35)
[2018-09-25] MEDS: METOPROLOL TARTRATE 50 MG TABLET GT SCH ×2 (09:35→21:35)
[2018-09-25] MEDS: PROTEIN SUPPLEMENT (PROSTAT) 30 ML LIQUID GT SCH ×2 (09:37→17:46)
[2018-09-25] MEDS: Z GUARD REMEDY PASTE 57 GM TUBE TOP SCH ×3 (09:37→21:37)
[2018-09-25] MEDS: ASCORBIC ACID 500 MG TABLET GT SCH ×2 (09:37→21:37)
[2018-09-25] MEDS: HYDROGEN PEROXIDE 3% 118 ML BOTTLE TP SCH ×2 (09:38→21:38)
[2018-09-25] MEDS: THERAHONEY GEL 1.5 OZ TUBE TOP SCH ×2 (10:00→21:37)
[2018-09-25] MEDS: SODIUM HYPOCHLORITE 0.125% 473 ML BOTTLE TP SCH ×2 (10:00→21:38)
--- NOTE | 2018-09-25 16:00 | NUR ---
NO BLEEDING NOTED, F/C PATENT AND DRAINING WELL, WILL CONTINUE MONITORING.
[2018-09-25 20:32] VITALS: BP 115/62
[2018-09-25] MEDS: ARGINAID GT SCH (21:36)
[2018-09-25] MEDS: MULTIVITAMINS,THERAPEUTIC TABLET GT SCH (21:36)
[2018-09-25] MEDS: RIVAROXABAN 15 MG TABLET PO SCH (21:39)
--- NOTE | 2018-09-25 23:50 | NUR ---
PT ON CONT HT 50 VENT WITH SHILEY # [address] AND SECURED, WITH SAME CURRENT VENT SETTINGS, PT DOES ASSIST AT TIMES, GOOD COUGH EFFORT, SUCTIONED LIGHT PALE YELL TINGE SECRETIONS, CHECK CUFF, CHANGE HME, ALL VENT ALARMS OK, NO VENT CHANGES MADE, PT STABLE, SUCTIONED LIGHT PALE YELL TINGE SECRETIONS. Emily HOWELL RCP Addendum: 09/25/18 at 2352 by PAIGE HOWELL RT Amended: Links added.
[2018-09-26] MEDS: GLUCERNA 1.2 1000ML LIQUID GT PRN ×2 (00:46→22:00)
[2018-09-26] MEDS: IPRATROPIUM BROMIDE 0.5 MG/2.5 ML NEBU NEB SCH ×4 (01:37→20:21)
[2018-09-26] MEDS: ALBUTEROL SULFATE 2.5 MG/3 ML NEBU NEB SCH ×4 (01:37→20:21)
[2018-09-26] MEDS: CHOLECALCIFEROL 1,000 UNIT TABLET GT SCH (05:47)
[2018-09-26] MEDS: FAMOTIDINE 40 MG TABLET GT SCH (05:47)
[2018-09-26] MEDS: FERROUS SULFATE 330 MG/7.5 ML UDC- FOR SA ONLY GT SCH ×3 (05:47→21:39)
[2018-09-26] MEDS: POLYVINYL ALCOHOL OPHT DROPS 15 ML BOTTLE OP SCH ×3 (05:47→21:40)
[2018-09-26 08:28] VITALS: BP 108/51
[2018-09-26] MEDS: ASPIRIN 81 MG TAB.CHEW GT SCH (08:42)
[2018-09-26] MEDS: LEVETIRACETAM 500 MG/5 ML LIQUID UDC GT SCH ×2 (08:44→21:36)
[2018-09-26] MEDS: LOSARTAN POTASSIUM 50 MG TABLET GT SCH (08:45)
[2018-09-26] MEDS: METOPROLOL TARTRATE 50 MG TABLET GT SCH ×2 (08:47→21:36)
[2018-09-26] MEDS: ASCORBIC ACID 500 MG TABLET GT SCH ×2 (08:47→21:38)
[2018-09-26] MEDS: PROTEIN SUPPLEMENT (PROSTAT) 30 ML LIQUID GT SCH ×2 (08:47→17:27)
[2018-09-26] MEDS: Z GUARD REMEDY PASTE 57 GM TUBE TOP SCH ×3 (08:48→21:39)
[2018-09-26] MEDS: THERAHONEY GEL 1.5 OZ TUBE TOP SCH ×2 (08:48→21:39)
[2018-09-26] MEDS: HYDROGEN PEROXIDE 3% 118 ML BOTTLE TP SCH ×2 (08:48→21:39)
[2018-09-26] MEDS: SODIUM HYPOCHLORITE 0.125% 473 ML BOTTLE TP SCH ×2 (08:48→21:39)
[2018-09-26] MEDS: LACOSAMIDE 200 MG TABLET XX SCH ×2 (08:48→21:39)
--- NOTE | 2018-09-26 14:43 | NUR ---
CAMDEN met with patient's Zoya today and informed her that the next IDT meeting for the patient has been scheduled for Sunday10/01/18 at 11am.
--- NOTE | 2018-09-26 17:00 | NUR ---
SEEN BY WAYNE ROBERTS (Radha.P,SX)AND JOSEFINA.
[2018-09-26 20:00] VITALS: BP 122/60
[2018-09-26] MEDS: MULTIVITAMINS,THERAPEUTIC TABLET GT SCH (21:37)
[2018-09-26] MEDS: RIVAROXABAN 15 MG TABLET PO SCH (21:39)
[2018-09-26] MEDS: ARGINAID GT SCH (21:48)
--- NOTE | 2018-09-27 00:32 | NUR ---
PT ON CONT HT 50 VENT WITH SHILEY # [address] AND SECURED, WITH SAME CURRENT VENT SETTINGS, PT DOES ASSIST AT TIMES, GOOD COUGH EFFORT, SUCTIONED LIGHT PALE YELL TINGE SECRETIONS, NO VENT CHANGES MADE AT THIS TIME, ALL VENT ALARMS GOOD, CHANGE HME AND CHECK CUFF, AMBU BAG AT BEDSIDE, PT STABLE.Emily STRAUSSP Addendum: 09/27/18 at 0034 by PAIGE HOWELL RT Amended: Links added.
[2018-09-27] MEDS: ALBUTEROL SULFATE 2.5 MG/3 ML NEBU NEB SCH ×4 (01:38→19:18)
[2018-09-27] MEDS: IPRATROPIUM BROMIDE 0.5 MG/2.5 ML NEBU NEB SCH ×4 (01:38→19:18)
[2018-09-27] MEDS: POLYVINYL ALCOHOL OPHT DROPS 15 ML BOTTLE OP SCH ×3 (06:16→21:16)
[2018-09-27] MEDS: FAMOTIDINE 40 MG TABLET GT SCH (06:16)
[2018-09-27] MEDS: FERROUS SULFATE 330 MG/7.5 ML UDC- FOR SA ONLY GT SCH ×3 (06:16→21:16)
[2018-09-27] MEDS: CHOLECALCIFEROL 1,000 UNIT TABLET GT SCH (06:16)
[2018-09-27 07:47] VITALS: BP 130/48
--- NOTE | 2018-09-27 08:18 | NUR ---
PT ON HT-50 VENT, SETTINGS ARE AC 12, Vt-500, +5, 2 LPM BLEED IN. SHILEY 6 TRACH IS PATENT AND SECURED WITH TIES. NO S/S OF RESPIRATORY DISTRESS. INLINE TX TOLERATED WELL. SUCTIONED SMALL AMOUNTS OF PALE YELLOW THICK SECRETIONS. BVM AND BACK UP TRACH AT BEDSIDE. WILL CONTINUE TO MONITOR.
[2018-09-27] MEDS: ASPIRIN 81 MG TAB.CHEW GT SCH (09:53)
[2018-09-27] MEDS: LOSARTAN POTASSIUM 50 MG TABLET GT SCH (09:54)
[2018-09-27] MEDS: LEVETIRACETAM 500 MG/5 ML LIQUID UDC GT SCH ×2 (09:54→21:15)
[2018-09-27] MEDS: THERAHONEY GEL 1.5 OZ TUBE TOP SCH ×2 (09:55→21:00)
[2018-09-27] MEDS: Z GUARD REMEDY PASTE 57 GM TUBE TOP SCH ×3 (09:55→21:16)
[2018-09-27] MEDS: SODIUM HYPOCHLORITE 0.125% 473 ML BOTTLE TP SCH ×2 (09:55→21:00)
[2018-09-27] MEDS: LACOSAMIDE 200 MG TABLET XX SCH ×2 (09:55→21:16)
[2018-09-27] MEDS: PROTEIN SUPPLEMENT (PROSTAT) 30 ML LIQUID GT SCH ×2 (09:55→16:04)
[2018-09-27] MEDS: HYDROGEN PEROXIDE 3% 118 ML BOTTLE TP SCH ×2 (09:55→21:16)
[2018-09-27] MEDS: ASCORBIC ACID 500 MG TABLET GT SCH ×2 (09:56→21:16)
[2018-09-27] MEDS: METOPROLOL TARTRATE 50 MG TABLET GT SCH ×2 (09:56→21:16)
--- NOTE | 2018-09-27 11:39 | NUR ---
SEEN BY DR. ARNULFO ROCHA.
--- NOTE | 2018-09-27 15:39 | NUR ---
NEW ORDER WAS CARRIED OUT FROM [facility] ALVAREZ P.A. TO HOLD ASPIRIN AND XARELTO D/T LEFT EYE CORNER BLOOD SHOT (PICTURE TAKEN) AND ALSO FOR LOCAL TX ON MID CHEST DRY BLISTER,PT'S DTR. ADEL AWARE AND TRANSLATE TO PT'S .
[2018-09-27] MEDS: NEOMY/BACITRA/POLYMYXIN B OINT UD PACKET TP SCH (15:53)
--- NOTE | 2018-09-27 19:20 | NUR ---
Pt received on HT-50 ventilator with the following settings of AC-12, Vt-500, PEEP+5, FIO2-2LPM bleed-in, trached with Shiley#6 DCT trach, which is in the place and secure. No distress noted. Airway care done, pt responded to physical stimuli. In-line HHN tx with 2.5mg Albuterol+0.5mg Atrovent given, no adverse reaction noted. HME changed. PPE used. Resus. bag and back up trach at bedside. Vent and alarms checked and reset.
[2018-09-27] MEDS: ARGINAID GT SCH (21:16)
[2018-09-27] MEDS: MULTIVITAMINS,THERAPEUTIC TABLET GT SCH (21:16)
[2018-09-27 23:02] VITALS: BP 116/66
[2018-09-27] MEDS: GLUCERNA 1.2 1000ML LIQUID GT PRN (23:04)
[2018-09-28] MEDS: IPRATROPIUM BROMIDE 0.5 MG/2.5 ML NEBU NEB SCH ×2 (00:59→07:35)
[2018-09-28] MEDS: ALBUTEROL SULFATE 2.5 MG/3 ML NEBU NEB SCH ×2 (00:59→07:35)
[2018-09-28] MEDS: FAMOTIDINE 40 MG TABLET GT SCH (05:45)
[2018-09-28] MEDS: FERROUS SULFATE 330 MG/7.5 ML UDC- FOR SA ONLY GT SCH (05:45)
[2018-09-28] MEDS: CHOLECALCIFEROL 1,000 UNIT TABLET GT SCH (05:45)
[2018-09-28] MEDS: POLYVINYL ALCOHOL OPHT DROPS 15 ML BOTTLE OP SCH (05:45)
--- NOTE | 2018-09-28 07:50 | NUR ---
PT. RECEIVED WITH HR 156X',B/P 142/83,TEMP.100.1F ORAL TEMP.O2 SAT 98%,RR24X',SKIN WARM ANDCLAMMY TO TOUCH.DR. ARREDONDO WAS CALLED AND WITH NEW ORDERS CARRIED OUT.EKG,CBC AND BMP ,RT AT BEDSIDE.
[2018-09-28] MEDS: LOSARTAN POTASSIUM 50 MG TABLET GT SCH (08:01)
[2018-09-28] MEDS: LEVETIRACETAM 500 MG/5 ML LIQUID UDC GT SCH (08:03)
[2018-09-28] MEDS: PROTEIN SUPPLEMENT (PROSTAT) 30 ML LIQUID GT SCH (08:05)
[2018-09-28] MEDS: METOPROLOL TARTRATE 50 MG TABLET GT SCH (08:05)
[2018-09-28] MEDS: SODIUM HYPOCHLORITE 0.125% 473 ML BOTTLE TP SCH (08:06)
[2018-09-28] MEDS: ASCORBIC ACID 500 MG TABLET GT SCH (08:06)
[2018-09-28] MEDS: NEOMY/BACITRA/POLYMYXIN B OINT UD PACKET TP SCH (08:06)
[2018-09-28] MEDS: LACOSAMIDE 200 MG TABLET XX SCH (08:10)
[2018-09-28] MEDS: Z GUARD REMEDY PASTE 57 GM TUBE TOP SCH (08:11)
[2018-09-28] MEDS: THERAHONEY GEL 1.5 OZ TUBE TOP SCH (08:11)
[2018-09-28] MEDS: HYDROGEN PEROXIDE 3% 118 ML BOTTLE TP SCH (08:12)
--- NOTE | 2018-09-28 08:12 | NUR ---
EKG DONE AND READING SINUS TACHYCARDIA.
[2018-09-28 08:30] VITALS: BP 142/83
[2018-09-28 08:33] LABS: BASOPHILS # (AUTO) 0.1 K/uL (0.0-8.0); BASOPHILS % (AUTO) 0.3 % (0.0-2.0); LYMPHOCYTES # (AUTO) 0.8 K/uL (20.0-40.0); LYMPHOCYTES % (AUTO) 3.8 % (20.5-51.5); MEAN CORPUSCULAR HEMOGLOBIN 26.5 uug (23.8-33.4); MEAN CORPUSCULAR HGB CONC 32 g/dL (32.5-36.3); MEAN CORPUSCULAR VOLUME 82.8 fL (73.0-96.2); MONOCYTES # (AUTO) 0.7 K/uL (2.0-10.0); MONOCYTES % (AUTO) 3.1 % (0.0-11.0); NEUTROPHILS # (AUTO) 20.5 K/uL (1.8-8.9); NEUTROPHILS % (AUTO) 92.8 % (38.5-71.5); PLATELET COUNT (AUTO) 254 K/uL (152-348); RED BLOOD CELL COUNT(AUTO) 5.67 MIL/uL (4.06-5.63); WHITE BLOOD COUNT (AUTO) 22.1 K/uL (3.6-10.2)
[2018-09-28 08:35] LABS: CREATININE 1.1 mg/dL (0.6-1.3); POTASSIUM 4.5 mmol/L (3.5-5.1)
--- NOTE | 2018-09-28 08:50 | NUR ---
DR. ARREDONDO WAS CALLED AND AWARE OF ABNORMAL CBC AND NNO, HE SAID IS COMING TO SEE PT.
--- NOTE | 2018-09-28 08:51 | NUR ---
DR. ARREDONDO WAS AWARE OF ORAL TEMP 100.1 F AT THIS TIME TOO,COOLING MEASURES APPLIED.
--- NOTE | 2018-09-28 09:10 | NUR ---
PT. WAS SEEN AND EXAMINED BY DR. ARREDONDO AT THIS TIME AND WITH NEW ORDERS CARRIED OUT.SHEYLA AND DR. ALEJA VILLAREAL CALLED AND IN AGREEMENT WITH ORDERS.URINE AND SPUTUM SPECIMENS WERE COLLECTED AND SENT TO LAB.
[2018-09-28 09:26] LABS: BILIRUBIN,DIRECT 0.2 mg/dL (0.0-0.2); BILIRUBIN,TOTAL 1.3 mg/dL (0.2-1.0); TOTAL PROTEIN, SERUM 7.3 g/dL (6.4-8.2)
[2018-09-28] MEDS ORDERED: NS IV ONE (10:30)
[2018-09-28 10:41] LABS: *BILIRUBIN,URIN NEGATIVE (NEGATIVE); *BLOOD, URINE 3+ (NEGATIVE); *CLARITY,URINE CLOUDY (CLEAR); *COLOR,URINE YELLOW (YELLOW); *KETONES,URINE TRACE (NEGATIVE); *UROBILINOGEN,URINE 0.2 E.U./dl (NORMAL); LEUKOCYTE ESTERASE ,URINE 3+ (NEGATIVE); NITRITE, URINE NEGATIVE (NEGATIVE); UGLUCOSE NEGATIVE (NEGATIVE)
[2018-09-28 10:52] LABS: BACTERIA,URINE 2 /HPF (NONE SEEN); SQUAMOUS EPITHELIAL CELL,UR FEW /HPF (NONE SEEN); WBC,URINE 20-50 /HPF (0-3)
--- NOTE | 2018-09-28 10:56 | NUR ---
Spoke with regarding Lactic acid 2.8.New orders received to transfer pt to ER.
--- NOTE | 2018-09-28 11:20 | NUR ---
PT PREP'D FOR TRANSPORT TO ER.
[2018-09-28 11:30] VITALS: BP 153/90
--- NOTE | 2018-09-28 11:30 | NUR ---
PT. WAS TRANSFERRED AT THIS TIME ORDERED BY DR. HAMMER ,REPORT WAS GIVEN TO PAIGE PEÑA LVN AT ER AND ALEXA RN ALSO TO INTERNET ARCHITECT EMILI AND MESSAGE WAS LEFT TO PAIGE TRANSITIONS MANAGER.V/S AT THIS TIME FOLLOW:TEMP 99.9 ORALLY, B/P 153/90,HR 125X',RR 14X'(EVEN AND UNLABORED ,VENT SETTINGS WELL TOLERATED )SKIN DRY AND WARM TO TOUCH BUT COOL LOWER EXTREMITIES P/A 0/10 ,UNABLE TO PLACE PERIPHERAL IV SITE ON LOWER EXT. D/T POOR VENOUS ACCESS.UPPER EXT. ULTRASOUND DONE AND RESULT PENDING.PT'S DTR. ADEL WAS CALLED AND AWARE OF PT'S CONDITION AND TRANSLATED TO PT'S AND BOTH IN AGREEMENT WITH ORDERS.RT AT BEDSIDE .
--- NOTE | 2018-09-28 11:30 | NUR ---
ORDER FOR BEDHOLD CARRIED OUT.
[2018-09-28] MEDS ORDERED: THERAHONEY GEL TOP (12:59)
[2018-09-28] MEDS ORDERED: HYDR-3326 GT (12:59)
[2018-09-28] MEDS ORDERED: NEOM1PAC2 TP (12:59)
[2018-09-30] MEDS ORDERED: RIVAROXABAN 15 MG TABLET PO SCH (21:00)
[2018-10-01] MEDS ORDERED: ASPIRIN 81 MG TAB.CHEW GT SCH (09:00)
== END 2018-09-28 15:55 | disposition short-term general hospital (02) | DRG 951 ==
LOC: SA 14:57
PROVIDERS: ADMIT Internal Medicine; ATTEND Internal Medicine Pulmonary Disease
PROC: 5A1955Z Respiratory Ventilation, Greater than 96 Consecutive Hours (ICD-10-PCS; principal; 2018-05-20)
PROC: 0KBP0ZZ Excision of Left Hip Muscle, Open Approach (ICD-10-PCS; 2018-09-04)
PROC: 0KBN0ZZ Excision of Right Hip Muscle, Open Approach (ICD-10-PCS; 2018-09-04)
DX: J96.11 Chronic respiratory failure with hypoxia (principal); R40.2313 Coma scale, best motor response, none, at hospital admission; R40.2213 Coma scale, best verbal response, none, at hospital admission; G93.1 Anoxic brain damage, not elsewhere classified; E43 Unspecified severe protein-calorie malnutrition; Z99.11 Dependence on respirator [ventilator] status; L89.154 Pressure ulcer of sacral region, stage 4; D68.59 Other primary thrombophilia; Z93.0 Tracheostomy status; L89.894 Pressure ulcer of other site, stage 4; I82.623 Acute embolism and thrombosis of deep veins of upper extremity, bilateral; D69.6 Thrombocytopenia, unspecified; E11.69 Type 2 diabetes mellitus with other specified complication; Z86.74 Personal history of sudden cardiac arrest; M46.28 Osteomyelitis of vertebra, sacral and sacrococcygeal region; R13.10 Dysphagia, unspecified; Z93.1 Gastrostomy status; I25.10 Atherosclerotic heart disease of native coronary artery without angina pectoris; G40.909 Epilepsy, unspecified, not intractable, without status epilepticus; E78.5 Hyperlipidemia, unspecified; N39.0 Urinary tract infection, site not specified; Z87.01 Personal history of pneumonia (recurrent); Z74.01 Bed confinement status; Z22.322 Carrier or suspected carrier of Methicillin resistant Staphylococcus aureus; K05.10 Chronic gingivitis, plaque induced; Z79.82 Long term (current) use of aspirin; Z68.27 Body mass index [BMI] 27.0-27.9, adult; Z87.440 Personal history of urinary (tract) infections; Z79.899 Other long term (current) drug therapy; I10 Essential (primary) hypertension; B96.4 Proteus (mirabilis) (morganii) as the cause of diseases classified elsewhere; D64.9 Anemia, unspecified; N48.89 Other specified disorders of penis; R00.0 Tachycardia, unspecified; R40.2143 Coma scale, eyes open, spontaneous, at hospital admission; N17.9 Acute kidney failure, unspecified
CPT/HCPCS: 36415; 36600; 71045; 80164; 82652; 83550; 83605; 83735; 84100; 84443; 84550; 85014; 85018; 85025; 85610; 85730; 86580; 86850; 86900; 86901; 86920; 87040; 87070; 87077; 87086; 92523; 93005; 94002; 94003; 94640; 95819; 97110; 97165; 97530; A4663; C1751; J0290; J0696; J1650; J1815; J2543; J3370; J3490; J3590; J7030; J7060; J8499; J8597; P9047

== ENCOUNTER 2018-07-17 18:18 | Inpatient (IN) | payer MEDICAID ==
[~2018-07-17] VITALS: Ht 165.1 cm; Wt 75.7 kg
--- NOTE | 2018-07-17 18:45 | NUR ---
RECIEVED PT FROM SUBACUTE VIA BED A DIRECT ADMIT PER PROCESS COACH. 63 YO MALE WITH A CHIEF C/O OF ANEMIA WITH A LOW HGB OF 6.5 . PT IS OBTUNDED, RESPONSIVE TO PAINFUL STIMULI. RECIEVED REPORT FROM RC MOORE.
[2018-07-17 18:56] VITALS: BP 94/54
--- NOTE | 2018-07-17 19:00 | NUR ---
RECIEVED A CALL FROM ESTHELA THE PICC LINE RN, FOR THE INSERTION OF CENTRAL LINE, INSTEAD OF PICC LINE BECAUSE OF THE PRESENSE OF DVT'S ON BOTH ARMS. ORDER PER CAL PENA. CONSENT OBTAINED FROM THE .
--- NOTE | 2018-07-17 19:00 | NUR ---
CONNECTED TO MONITOR, ST WITH OCCASSIONAL PVC,S IN THE 112. AFEBRILE.
--- NOTE | 2018-07-17 19:15 | NUR ---
REPORT GIVEN TO DESIGNER WRITER RN.
--- NOTE | 2018-07-17 19:30 | NUR ---
CALLED OUT PEYTON HOUSTON FOR ADMIT ORDERS, AWAITING.
[2018-07-17 20:00] VITALS: BP 100/54
--- NOTE | 2018-07-17 20:00 | NUR ---
Right femoral triple lumen cath inserted by PICC TERESA Ch. Pt tolerated procedure well.
--- NOTE | 2018-07-17 20:10 | NUR ---
Spoke with Crystal Valdez for admission orders. He said he was not informed about this admission so this CHANNEL EXECUTIVE will call Dr. Edita Acuna DNP.
--- NOTE | 2018-07-17 20:20 | NUR ---
Crytsal Valdez PARK MAINTAINER called back and ordered not to admit pt to [facility]. PARK MAINTAINER ordered to give blood transfusion and transfer back pt to SubAcute Unit.
--- NOTE | 2018-07-17 21:00 | NUR ---
Jacob Corea on ID consult and ordered to continue Zosyn IVPB for VRE in sacral wound. Will administer said dose.
--- NOTE | 2018-07-17 21:40 | NUR ---
Crystal Valdez here to evaluate pt. Admission orders given. Pt being admitted to [facility] status.
[2018-07-17] MEDS ORDERED: Z GUARD REMEDY PASTE 57 GM TUBE TOP PRN (21:45)
[2018-07-17] MEDS ORDERED: MAGNESIUM HYDROXIDE 30 ML LIQUID UDC PO PRN (21:45)
[2018-07-17] MEDS ORDERED: ACETAMINOPHEN 325 MG TABLET PO PRN (21:45)
[2018-07-17] MEDS ORDERED: ONDANSETRON 4 MG/2 ML VIAL IV PRN (21:45)
--- NOTE | 2018-07-17 21:45 | NUR ---
Admitted pt to Room 304 as [facility] status under the care of Crystal Valdez NP/[employer]. Direct admit from SubAcute Unit. Routine [facility] admission care rendered. Please see Admission Profile and Clinical Data. Pt chronic trach, on vent. Comfortable on current settings. Monitor Sinus Tachy with rare PVCs. VS stable. Pt NPO with GTube intact, clamped. Fletcher cath patent, output adequate. Nursing comfort measures observed. HOB up, aspiration precautions and contact isolation maintained.
[2018-07-17] MEDS ORDERED: PIPERACILLIN/TAZOBACTAM/D5W 50 ML IV ONE ×2 (21:49→23:13)
[2018-07-17] MEDS ORDERED: PIPERACILLIN/TAZOBACTAM/D5W 3.375 G in PREMIXED 1 EACH IV SCH (22:00)
--- NOTE | 2018-07-17 22:00 | NUR ---
Niece called in for update; very appreciative of care and information.
[2018-07-17] MEDS ORDERED: ASCO-340 GT (22:27)
[2018-07-17] MEDS ORDERED: VANC1.2521 IV (22:27)
[2018-07-17] MEDS ORDERED: LEVE100S GT (22:27)
[2018-07-17] MEDS ORDERED: ARGI1POW13 GT (22:27)
[2018-07-17] MEDS ORDERED: MULT1TAB73 GT (22:27)
[2018-07-17] MEDS ORDERED: ACET160S2 PO (22:27)
[2018-07-17] MEDS ORDERED: LACO200T2 GT (22:27)
[2018-07-17] MEDS ORDERED: METO50TA16 PO (22:27)
[2018-07-17] MEDS ORDERED: HYDR-4075 GT (22:27)
[2018-07-17] MEDS ORDERED: SODI473S8 TP (22:27)
[2018-07-17] MEDS ORDERED: IPRA0.2S6 NEB (22:27)
[2018-07-17] MEDS ORDERED: CHOL10002 GT (22:27)
[2018-07-17] MEDS ORDERED: SODI473S8 MC (22:27)
[2018-07-17] MEDS ORDERED: BLOO-140 IN (22:27)
[2018-07-17] MEDS ORDERED: ATOR10TA GT (22:27)
[2018-07-17] MEDS ORDERED: LOSA50TA39 GT (22:27)
[2018-07-17] MEDS ORDERED: ASPI81TA31 GT (22:27)
[2018-07-17] MEDS ORDERED: AMIN30LI2 GT (22:27)
[2018-07-17] MEDS ORDERED: RIVA15TA2 GT (22:27)
[2018-07-17] MEDS ORDERED: DEXT15DR6 OP (22:27)
[2018-07-17] MEDS ORDERED: PIPE3.379 IV (22:27)
[2018-07-17] MEDS ORDERED: ZINC113P2 TP (22:27)
[2018-07-17] MEDS ORDERED: ALBU2.5V38 IH (22:27)
[2018-07-17] MEDS ORDERED: VALP250S3 GT (22:27)
[2018-07-17] MEDS ORDERED: FAMO40TA7 GT (22:27)
[2018-07-17] MEDS ORDERED: FERR220S6 GT (22:27)
[2018-07-17] MEDS ORDERED: HYDR1TOW4 TP (22:27)
[2018-07-17] MEDS ORDERED: ACET160S2 GT (22:27)
[2018-07-17] MEDS ORDERED: METO5SOL GT (22:27)
[2018-07-17 22:48] VITALS: BP 101/55
--- NOTE | 2018-07-17 22:48 | NUR ---
Blood transfusion was started for Hgb 6.5. Pt closely monitored. Please see Blood Transfusion profile.
[2018-07-17 23:00] VITALS: BP 117/58
--- NOTE | 2018-07-17 23:00 | NUR ---
Wound care rendered; sacral wound cleansed with NS and packed with NS soaked gauze and Hydrogel, covered with Mepilex. ZGuard applied to surrounding areas.utility gelatin maker consult requested. Pt turned/positioned q 2hr and PRN. First Step Mattress in use. All extremities off loaded with pillows.
[2018-07-17 23:37] VITALS: BP 133/66
[2018-07-17 23:59] VITALS: BP 133/76
[2018-07-18] VITALS (14 sets, daily range): BP systolic 98–112; BP diastolic 36–62
--- NOTE | 2018-07-18 00:35 | NUR ---
Blood transfusion completed and noted no adverse effects. Close monitoring continues.
[2018-07-18 01:56] LABS: BASOPHILS % (AUTO) 0.5 % (0.0-2.0); EOSINOPHILS % (AUTO) 0.1 % (0.0-7.0); HEMATOCRIT 21.5 % (36.7-47.1); LYMPHOCYTES # (AUTO) 0.7 K/uL (20.0-40.0); LYMPHOCYTES % (AUTO) 9.9 % (20.5-51.5); MEAN CORPUSCULAR HEMOGLOBIN 27.1 uug (23.8-33.4); MEAN CORPUSCULAR HGB CONC 33 g/dL (32.5-36.3); MEAN CORPUSCULAR VOLUME 81.6 fL (73.0-96.2); MONOCYTES % (AUTO) 13.9 % (0.0-11.0); NEUTROPHILS # (AUTO) 5.4 K/uL (1.8-8.9); NEUTROPHILS % (AUTO) 75.6 % (38.5-71.5); PLATELET COUNT (AUTO) 181 K/uL (152-348); RED BLOOD CELL COUNT(AUTO) 2.63 MIL/uL (4.06-5.63); WHITE BLOOD COUNT (AUTO) 7.2 K/uL (3.6-10.2)
[2018-07-18 02:17] LABS: ALANINE AMINOTRANSFERASE 116 U/L (16-63); ALKALINE PHOSPHATASE 115 U/L (50-136); ASPARTATE AMINOTRANSFERASE 48 U/L (15-37); BILIRUBIN,TOTAL 0.5 mg/dL (0.2-1.0); CARBON DIOXIDE 30 mmol/L (21-32); CHLORIDE 103 mmol/L (98-107); CREATININE 0.5 mg/dL (0.6-1.3); GLUCOSE 129 mg/dL (74-106); HEMOGLOBIN 7.1 g/dL (12.5-16.3); POTASSIUM 3.7 mmol/L (3.5-5.1); TOTAL PROTEIN, SERUM 5.5 g/dL (6.4-8.2); UREA NITROGEN, BLOOD 19 mg/dL (7-18)
--- NOTE | 2018-07-18 04:36 | NUR ---
Dr. Garcia gave order for another unit PRBC [id number] reporting post transfusion Hgb 7.1.
--- NOTE | 2018-07-18 06:00 | NUR ---
PRBCs #2 bag started at 0530 and infusing well without adverse effects. Will continue to monitor closely.
[2018-07-18] MEDS: PIPERACILLIN/TAZOBACTAM/D5W 3.375 G in PREMIXED 1 EACH IV ONE ×2 (06:40→06:44)
--- NOTE | 2018-07-18 06:43 | NUR ---
regarding morning administration of zosyn 3.375 morning dose. per pharmacy: do not administer Zosyn 3.375 gm premix Bag 3.375. with attached comment: "RN called around 0620 07/18/18 regarding zosyn-did not show up in que - RN indicated it had to do with account numbers changing- pt already received 07/17/18 2200 dose. entered x1 dose for 0600 07/18/18 - please change to extended infusion in the AM. Medication was not administered per pharmacy orders.
--- NOTE | 2018-07-18 06:49 | NUR ---
Molly Mccormick RN, called pharamacy and clarified with mamtaramgely. Pharmacy okayed to give medication administration of Zosyn 3.375. Ankur MOORE will administer.
--- NOTE | 2018-07-18 07:23 | NUR ---
report received from Peter Pierre. patient on ventilator A/C 12, tv 500,Peep of 5 and 28% FIO2. G-tube patent. and clamped. cordova to gravity. Central light right growing, 3L. clean intact. Will continue with care plan.
[2018-07-18] MEDS ORDERED: PANTOPRAZOLE SODIUM 40 MG VIAL IV SCH (07:30)
--- NOTE | 2018-07-18 07:40 | NUR ---
Pt received in semi fowlers position, obtunded, unable to communicate, and on continuous mechanical ventilation via Shiley 6 DCT Trach. Pt is on Muñoz vent with ordered settings of A/C-12, VT-500, PEEP+5, FIO2-28%. Tolerating vent settings well. SpO2-100% Minimal occluding volume technique used to assess cuff inflation. Sxn'd and lavaged as needed. Suctioned moderate amounts of thick yellowish secretions. No signs or symptoms of respiratory distress noted. Ventilator alarm parameters checked, on and audible. Vent plugged into red emergency outlet. Bag/valve/mask and backup trach at bedside. HME changed. PPE used. Will continue to monitor.
[2018-07-18] MEDS ORDERED: LEVETIRACETAM 500 MG/5 ML LIQUID UDC GT SCH (09:15)
[2018-07-18] MEDS ORDERED: SODIUM HYPOCHLORITE 0.125% 473 ML BOTTLE TP PRN ×2 (09:15→09:45)
[2018-07-18] MEDS ORDERED: PROTEIN SUPPLEMENT (PROSTAT) 30 ML LIQUID GT SCH (09:17)
[2018-07-18] MEDS ORDERED: ASCORBIC ACID 500 MG TABLET GT SCH (09:18)
[2018-07-18] MEDS ORDERED: VALPROIC ACID 250 MG/5 ML LIQUID UDC GT SCH (09:25)
[2018-07-18] MEDS ORDERED: LACOSAMIDE 50 MG TABLET GT SCH (09:27)
[2018-07-18 09:45] LABS: BASOPHILS # (AUTO) 0.1 K/uL (0.0-8.0); BASOPHILS % (AUTO) 0.6 % (0.0-2.0); EOSINOPHILS % (AUTO) 0.1 % (0.0-7.0); HEMATOCRIT 23.8 % (36.7-47.1); HEMOGLOBIN 7.9 g/dL (12.5-16.3); LYMPHOCYTES # (AUTO) 1.2 K/uL (20.0-40.0); LYMPHOCYTES % (AUTO) 14.4 % (20.5-51.5); MEAN CORPUSCULAR HEMOGLOBIN 27.3 uug (23.8-33.4); MEAN CORPUSCULAR HGB CONC 33 g/dL (32.5-36.3); MEAN CORPUSCULAR VOLUME 82.2 fL (73.0-96.2); MONOCYTES % (AUTO) 12.1 % (0.0-11.0); NEUTROPHILS # (AUTO) 5.9 K/uL (1.8-8.9); NEUTROPHILS % (AUTO) 72.8 % (38.5-71.5); PLATELET COUNT (AUTO) 176 K/uL (152-348); RED BLOOD CELL COUNT(AUTO) 2.89 MIL/uL (4.06-5.63); WHITE BLOOD COUNT (AUTO) 8.2 K/uL (3.6-10.2)
[2018-07-18] MEDS ORDERED: Z GUARD REMEDY PASTE 57 GM TUBE TOP PRN (09:45)
[2018-07-18 09:46] LABS: CARBON DIOXIDE 30 mmol/L (21-32); CHLORIDE 104 mmol/L (98-107); CHOLESTEROL 79 mg/dL (<200); CREATININE 0.4 mg/dL (0.6-1.3); GLUCOSE 113 mg/dL (74-106); MAGNESIUM 2.1 mg/dL (1.8-2.4); PHOSPHOROUS 3.4 mg/dL (2.5-4.9); POTASSIUM 3.5 mmol/L (3.5-5.1); TRIGLYCERIDES 143 MG/DL (30-150); UREA NITROGEN, BLOOD 15 mg/dL (7-18)
[2018-07-18 09:51] LABS: HDL CHOLESTEROL < 10 mg/dL (40-60)
[2018-07-18 10:50] LABS: THYROID STIMULATING HORMONE 4.566 mIU/mL (0.358-3.740)
[2018-07-18 11:59] LABS: BILIRUBIN,DIRECT 0.2 mg/dL (0.0-0.2); BILIRUBIN,TOTAL 0.6 mg/dL (0.2-1.0); TOTAL PROTEIN, SERUM 5.5 g/dL (6.4-8.2)
[2018-07-18] MEDS ORDERED: METOCLOPRAMIDE HCL 10 MG/10 ML UDC GT SCH (12:00)
[2018-07-18] MEDS ORDERED: METOCLOPRAMIDE HCL 5 MG GT SCH (12:00)
[2018-07-18] MEDS ORDERED: IPRATROPIUM BROMIDE 0.5 MG/2.5 ML NEBU NEB SCH (13:30)
--- NOTE | 2018-07-18 13:40 | NUR ---
In-line nebulizer Treatment given as ordered. No adverse reactions noted. Oral care done . Addendum: 07/18/18 at 1413 by LENIN KIRKLAND RT CORRECTION- Trach care done.
[2018-07-18] MEDS ORDERED: Medication Not On Formulary EA (Ferrous Sulfate 330 MG) GT SCH (14:00)
[2018-07-18] MEDS ORDERED: PIPERACILLIN/TAZOBACTAM/D5W 3.375 G in PREMIXED 1 EACH IV SCH (14:00)
[2018-07-18] MEDS ORDERED: POLYVINYL ALCOHOL OPHT DROPS 15 ML BOTTLE EACHEYE SCH (14:00)
[2018-07-18] MEDS ORDERED: FERROUS SULFATE 300 MG/5 ML LIQUID UDC GT SCH (14:00)
[2018-07-18] MEDS ORDERED: PIPE3.379 IV (14:35)
--- NOTE | 2018-07-18 15:00 | NUR ---
telephone report given to Peter Castanon, all questions answer. Alma.N. informed pt. will be follow up by for continuity of antibiotic treatment. pt. will be going with 3L central line right femoral. On ventilator, no change of setting. A/C 12, 28%FIO2, tv.500, Peep of 5.
--- NOTE | 2018-07-18 15:30 | NUR ---
Pt transferred with the help of GAYE Chase to subacute using ambu bag and oxygen tank. No complications. Resumed patient on ordered settings upstairs in room 424A. Vent alarm cable reconnected. Vent plugged into red emergency outlet. Bag/valve/mask and backup trach at bedside. GAYE Chase given report and is taking over for care of Pt.
[2018-07-18] MEDS ORDERED: Medication Not On Formulary EA (Amino Acids/Protein Hydrolys (Pro-Stat Liquid) 30 ML) GT SCH (17:00)
[2018-07-18] MEDS ORDERED: Medication Not On Formulary EA (Arginine/Ascorbate Sod/Vite AC (Arginaid Powder) 1 EACH) GT SCH (21:00)
[2018-07-18] MEDS ORDERED: SODIUM HYPOCHLORITE 0.125% 473 ML BOTTLE TP SCH ×2 (21:00)
[2018-07-18] MEDS ORDERED: Medication Not On Formulary EA (Ascorbate Calcium (Vitamin C TAB) 500 MG) GT SCH (21:00)
[2018-07-18] MEDS ORDERED: ARGINAID GT SCH (21:00)
[2018-07-18] MEDS ORDERED: RIVAROXABAN 15 MG TABLET GT SCH (21:00)
[2018-07-18] MEDS ORDERED: VALPROATE SODIUM GT SCH (21:00)
[2018-07-18] MEDS ORDERED: Z GUARD REMEDY PASTE 57 GM TUBE TOP SCH (21:00)
[2018-07-18] MEDS ORDERED: MULTIVITAMINS,THERAPEUTIC TABLET GT SCH (21:00)
[2018-07-19] MEDS ORDERED: CHOLECALCIFEROL 1,000 UNIT TABLET GT SCH (06:00)
--- NOTE | 2018-07-19 06:19 | NUR ---
INFORMATION SENT: LAKESHA,UR-07/18,PROGRESS NOTES 4-4,DISCHARGE SUMMARY INSURANCE NAME: [facility] FAX NUMBER: [phone] FAX SENT
[2018-07-19] MEDS ORDERED: Medication Not On Formulary EA (Multivitamins (Multivitamin) 1 EACH) GT SCH (09:00)
[2018-07-19] MEDS ORDERED: ASPIRIN 81 MG TAB.CHEW GT SCH (09:00)
== END 2018-07-18 15:30 | DRG 380 ==
LOC: DOU3 18:18 → TELE-TD3 18:30
PROVIDERS: ADMIT Nurse Practitioner Acute Care; ATTEND Nurse Practitioner Acute Care
PROC: 30233N1 Transfusion of Nonautologous Red Blood Cells into Peripheral Vein, Percutaneous Approach (ICD-10-PCS; principal; 2018-07-17)
PROC: 06HY33Z Insertion of Infusion Device into Lower Vein, Percutaneous Approach (ICD-10-PCS; principal; 2018-07-17)
PROC: 30243N1 Transfusion of Nonautologous Red Blood Cells into Central Vein, Percutaneous Approach (ICD-10-PCS; principal; 2018-07-17)
PROC: 5A1935Z Respiratory Ventilation, Less than 24 Consecutive Hours (ICD-10-PCS; principal; 2018-07-17)
DX: E11.69 Type 2 diabetes mellitus with other specified complication (principal); D63.8 Anemia in other chronic diseases classified elsewhere; L89.154 Pressure ulcer of sacral region, stage 4; Z99.11 Dependence on respirator [ventilator] status; G93.1 Anoxic brain damage, not elsewhere classified; J96.11 Chronic respiratory failure with hypoxia; Z93.0 Tracheostomy status; D68.59 Other primary thrombophilia; R13.10 Dysphagia, unspecified; M46.28 Osteomyelitis of vertebra, sacral and sacrococcygeal region; E88.09 Other disorders of plasma-protein metabolism, not elsewhere classified; Z86.74 Personal history of sudden cardiac arrest; Z93.1 Gastrostomy status; Z86.718 Personal history of other venous thrombosis and embolism; R74.8 Abnormal levels of other serum enzymes; I25.10 Atherosclerotic heart disease of native coronary artery without angina pectoris; Z74.01 Bed confinement status; Z79.82 Long term (current) use of aspirin; Z79.899 Other long term (current) drug therapy; Z79.4 Long term (current) use of insulin; Z79.01 Long term (current) use of anticoagulants; I10 Essential (primary) hypertension; N39.0 Urinary tract infection, site not specified; B96.4 Proteus (mirabilis) (morganii) as the cause of diseases classified elsewhere; B95.2 Enterococcus as the cause of diseases classified elsewhere; Z16.21 Resistance to vancomycin; Z22.322 Carrier or suspected carrier of Methicillin resistant Staphylococcus aureus; R40.2423 Glasgow coma scale score 9-12, at hospital admission; I69.891 Dysphagia following other cerebrovascular disease; R60.0 Localized edema; R47.02 Dysphasia
CPT/HCPCS: 36415; 76700; 83735; 84100; 84443; 85025; 86850; 86900; 86901; 86920; 94002; 94003; 94664; A4217; A4663; C1751; C9113; G0378; J2543; J3590; J7030; J7040; J7050; J8597; P9016-BL; P9021

== ENCOUNTER 2018-09-28 11:38 | Inpatient (IN) | payer MEDICAID ==
[~2018-09-28] VITALS: Ht 165.1 cm; Wt 71.7 kg
[~2018-09-28 11:38] MED LIST: ACET160S2 GT; ACET160S2 PO; ALBU2.5V38 IH; AMIN30LI2 GT; ARGI1POW13 GT; ASCO-340 GT; ASPI81TA31 GT; ATOR10TA GT; BLOO-140 IN; CHOL10002 GT; DEXT15DR6 OP; FAMO40TA7 GT; FERR220S6 GT; HYDR-4075 GT; HYDR1TOW4 TP; IPRA0.2S6 NEB; LACO200T2 GT; LEVE100S GT; LOSA50TA39 GT; METO50TA16 PO; METO5SOL GT; MULT1TAB73 GT; PIPE3.379 IV; RIVA15TA2 GT; SODI473S8 MC; SODI473S8 TP; VALP250S3 GT; ZINC113P3 TP
--- NOTE | 2018-09-28 11:38 | NUR ---
63 yr old male transferred from subacute 4th floor to ED room 1a, for sepsis. patient is nonverbal, trach to vent, sinus tachycardia at 120/min. unable to get blood pressure. reported from [facility] of having bilateral dvts both arms. left leg bp 59/40, 49/[address] santos reviewed the ultasound results and showed no dvt right arm. bp via right arm 142/90. patient has gt clamped. cordova catheter #18 . extremeties are flaccid. is aphasic, noverbal. has a sacral decub that is packed and is overed with a mepilex dressing
[2018-09-28] MEDS ORDERED: ACETAMINOPHEN 650 MG SUPP.RECT RC ONE ×2 (11:45→13:10)
[2018-09-28] MEDS ORDERED: IV NORMAL SALINE 1000 ML BAG IV ONE (11:45)
[2018-09-28] MEDS ORDERED: THERAHONEY GEL TOP (12:59)
[2018-09-28] MEDS ORDERED: NEOM1PAC2 TP (12:59)
[2018-09-28] MEDS ORDERED: HYDR-3326 GT (12:59)
--- NOTE | 2018-09-28 13:00 | NUR ---
dr santos at the bedside. inserted a triple lumen central line via right IJ. IV NS 1st liter started via right IJ. tylenol given rectally. Addendum: 09/28/18 at 1418 by NRUELO chest xray done to confirm placement of IJ centrall line
--- NOTE | 2018-09-28 14:17 | NUR ---
dr Molina in phone with Dr Hicks. will admit patient to [facility]
--- NOTE | 2018-09-28 14:31 | NUR ---
2nd liter of NS hung.
--- NOTE | 2018-09-28 14:33 | NUR ---
will admit to [facility] room 305. adm nurse Musa
[2018-09-28] MEDS ORDERED: PIPERACILLIN SODIUM/TAZOBACTAM 3.375 G in IV DEXTROSE 5% 50 ML IV ONE (15:30)
[2018-09-28] MEDS ORDERED: PIPERACILLIN SODIUM/TAZO 3.375 GM VIAL ONE (15:31)
--- NOTE | 2018-09-28 15:50 | NUR ---
report give to Leo MOORE.
--- NOTE | 2018-09-28 15:51 | NUR ---
Full telephone SBAR report received by TERESA Wiley.
--- NOTE | 2018-09-28 16:10 | NUR ---
Pt received from ER. Pt stable on vent and nad noted upon admission. Pt noted to be sinus tach HR 120's.
--- NOTE | 2018-09-28 16:21 | NUR ---
Pt received from ER, laying semi-Chauhan's, unable to communicate.. Pt trach: Leonard 6 DCT, in place / secure with tie.. Continuous mechanical ventilation with vent: Muñoz, settings: A/C 12, Vt 500, PEEP +5, FiO2 28%, tolerating well at this time.. Vent alarms on / audble / functioning normally at this time.. BVM at bedside.. Vent plugged in to emergency red outlet.. Will continue to monitor..
[2018-09-28] MEDS ORDERED: IV 1/2NS 1000 ML 1,000 ML IV PRN (16:45)
[2018-09-28] MEDS ORDERED: HYDROCODONE/APAP 5-325MG TABLET GT PRN (16:45)
[2018-09-28 16:47] VITALS: BP 140/79
[2018-09-28] MEDS ORDERED: Medication Not On Formulary EA (Amino Acids/Protein Hydrolys (Pro-Stat Liquid) 30 ML) GT SCH (17:00)
[2018-09-28] MEDS: PROTEIN SUPPLEMENT (PROSTAT) 30 ML LIQUID GT SCH (17:43)
[2018-09-28] MEDS ORDERED: LACOSAMIDE 100 MG/10 ML UDC GT SCH (17:45)
[2018-09-28] MEDS: GLUCERNA 1.2 1000ML LIQUID GT PRN (17:46)
[2018-09-28] MEDS ORDERED: IPRATROPIUM BROMIDE 0.5 MG/2.5 ML NEBU NEB SCH (18:00)
--- NOTE | 2018-09-28 18:07 | NUR ---
CLINICAL PHARMACY NOTE:VANCOMYCIN DOSING Request for vancomycin dosing on 63 y/o male 165.1 cm 74.8 kg for sepsis Temp 99.9f BUN 43 Scr. 1.1 WBC 22.1 also on Zosyn Start vancomycin 1gm ivpb q16h estimated trough 15. Will order trough level prior to 4th dose. Will continue to monitor
[2018-09-28] MEDS: VANCOMYCIN IV 1 G in PREMIXED 0 EACH IV SCH (18:24)
[2018-09-28] MEDS: IPRATROPIUM BROMIDE 0.5 MG/2.5 ML NEBU NEB SCH (19:08)
--- NOTE | 2018-09-28 19:08 | NUR ---
Pt received trach with a [employer] 6 DCT, in place and secure with trach tie. pt on Muñoz vent with settings of A/C 12, Vt 500, PEEP +5, FiO2 28%, tolerating well at this time.. Vent alarms on and audble and functioning normally at this time.. BVM at bedside.. Vent plugged in to emergency red outlet.. Will continue to monitor..
[2018-09-28] MEDS: LACOSAMIDE 100 MG/10 ML UDC GT SCH (20:02)
[2018-09-28] MEDS: LEVETIRACETAM 500 MG/5 ML LIQUID UDC GT SCH (20:02)
[2018-09-28] MEDS: ASCORBIC ACID 500 MG TABLET GT SCH (20:03)
[2018-09-28] MEDS: METOPROLOL TARTRATE 50 MG TABLET PO SCH (20:03)
[2018-09-28] MEDS: MULTIVITAMINS,THERAPEUTIC TABLET PO SCH (20:04)
[2018-09-28] MEDS: RIVAROXABAN 15 MG TABLET GT SCH (20:07)
[2018-09-28] MEDS: THERAHONEY GEL 1.5 OZ TUBE TOP SCH (20:08)
[2018-09-28] MEDS: SODIUM HYPOCHLORITE 0.125% 473 ML BOTTLE TP PRN ×2 (20:09→20:10)
[2018-09-28 20:19] VITALS: BP 142/78
[2018-09-28] MEDS ORDERED: Medication Not On Formulary EA (Ascorbate Calcium (Vitamin C TAB) 500 MG) GT SCH (21:00)
[2018-09-28] MEDS ORDERED: Medication Not On Formulary EA (Multivitamins (Multivitamin) 1 EACH) GT SCH (21:00)
[2018-09-28] MEDS ORDERED: Medication Not On Formulary EA (Arginine/Ascorbate Sod/Vite AC (Arginaid Powder) 1 EACH) GT SCH (21:00)
[2018-09-28] MEDS ORDERED: LACOSAMIDE 150 MG/15 ML UDC GT SCH (21:00)
[2018-09-28] MEDS: SODIUM HYPOCHLORITE 0.125% 473 ML BOTTLE TP SCH (21:05)
[2018-09-28] MEDS: POLYVINYL ALCOHOL OPHT DROPS 15 ML BOTTLE EACHEYE SCH (21:06)
--- NOTE | 2018-09-28 22:11 | NUR ---
Patient received laying semi-Chauhan's, eyes open but unable to communicate. Central line on the right internal jugular triple lumen, patient and intact. Running 1/2 NS at 70. Patient on trach to vent: Shiley 6 DCT, in place and secured with tie. Vent. settings: AC 12, Vt 500, PEEP 5, FiO2 28%. TELE ST at 120. Gtube feeding is on 60 ml per hour. Bilateral hand pitting edema 2+. Appears to be tolerating it well. Fletcher Cath draining clear and yellow urine. Patient is in contact isolation for VRE in wound. Safety initiated. Bed in low and locked position.
[2018-09-28] MEDS: PIPERACILLIN/TAZOBACTAM/D5W 3.375 G in PREMIXED 1 EACH IV SCH (23:02)
[2018-09-29] MEDS: IPRATROPIUM BROMIDE 0.5 MG/2.5 ML NEBU NEB SCH ×4 (00:42→19:03)
[2018-09-29 00:57] VITALS: BP 112/65
--- NOTE | 2018-09-29 01:27 | NUR ---
Wound care provided. Will continue to monitor.
--- NOTE | 2018-09-29 03:20 | NUR ---
Pt noted with pain as evidenced by facial grimacing and elevated HR. PRN [place] given as ordered. Will continue with current plan of care.
--- NOTE | 2018-09-29 05:00 | NUR ---
TEODORO Jaeger made aware of patient's temperature. New orders given.
--- NOTE | 2018-09-29 05:00 | NUR ---
Patient running a temperature. 100.8 oral, 102.4 rectal. Tylenol 650 mg given. Cooling measures initiated.
[2018-09-29 05:19] VITALS: BP 128/69
[2018-09-29] MEDS: POLYVINYL ALCOHOL OPHT DROPS 15 ML BOTTLE EACHEYE SCH ×3 (05:24→22:29)
[2018-09-29] MEDS: CHOLECALCIFEROL 1,000 UNIT TABLET GT SCH (05:24)
[2018-09-29] MEDS: ACETAMINOPHEN 325 MG TABLET PO PRN (06:26)
[2018-09-29] MEDS ORDERED: IV NS 1000 ML 1,000 ML IV ONE ×2 (06:30→07:00)
--- NOTE | 2018-09-29 06:42 | NUR ---
Patient slept intermittently t/o shift. Patient ran a temperature this am. BP remains stable however HR is elevated at 144 on TELE. Executed MARKETING OPERATIONS COORDINATOR Heide's order. Tylenol given. Patient was given 1L of bolus. Tolerated it well. Poor urine output. Patient is on a cooling blanket. Wound care provided. Turned and repositioned Q2H. All meds given as ordered. All needs met. Safety and comfort measures maintained t/o shift.
[2018-09-29 07:29] VITALS: BP 117/74
[2018-09-29 07:55] LABS: BASOPHILS % (AUTO) 0.1 % (0.0-2.0); HEMATOCRIT 42.9 % (36.7-47.1); HEMOGLOBIN 13.8 g/dL (12.5-16.3); LYMPHOCYTES # (AUTO) 0.6 K/uL (20.0-40.0); LYMPHOCYTES % (AUTO) 3.9 % (20.5-51.5); MEAN CORPUSCULAR HEMOGLOBIN 26.8 uug (23.8-33.4); MEAN CORPUSCULAR HGB CONC 32 g/dL (32.5-36.3); MEAN CORPUSCULAR VOLUME 83.1 fL (73.0-96.2); MONOCYTES # (AUTO) 0.5 K/uL (2.0-10.0); MONOCYTES % (AUTO) 3.7 % (0.0-11.0); NEUTROPHILS # (AUTO) 13.1 K/uL (1.8-8.9); NEUTROPHILS % (AUTO) 92.3 % (38.5-71.5); PLATELET COUNT (AUTO) 245 K/uL (152-348); RED BLOOD CELL COUNT(AUTO) 5.17 MIL/uL (4.06-5.63); WHITE BLOOD COUNT (AUTO) 14.2 K/uL (3.6-10.2)
[2018-09-29 08:15] LABS: BILIRUBIN,TOTAL 1.3 mg/dL (0.2-1.0); MAGNESIUM 2.1 mg/dL (1.8-2.4); PHOSPHOROUS 3.7 mg/dL (2.5-4.9); TOTAL PROTEIN, SERUM 5.5 g/dL (6.4-8.2)
[2018-09-29] MEDS: PIPERACILLIN/TAZOBACTAM/D5W 3.375 G in PREMIXED 1 EACH IV SCH ×3 (08:20→23:20)
[2018-09-29] MEDS: ASCORBIC ACID 500 MG TABLET GT SCH ×2 (08:20→20:22)
[2018-09-29] MEDS: LACOSAMIDE 100 MG/10 ML UDC GT SCH ×2 (08:21→20:24)
[2018-09-29] MEDS: LOSARTAN POTASSIUM 50 MG TABLET GT SCH (08:21)
[2018-09-29] MEDS: METOPROLOL TARTRATE 50 MG TABLET PO SCH ×2 (08:21→20:24)
[2018-09-29] MEDS: LEVETIRACETAM 500 MG/5 ML LIQUID UDC GT SCH ×2 (08:21→20:22)
[2018-09-29] MEDS: NEOMY/BACITRAC/POLYMI OINT 28.35 GM TUBE TOP SCH (08:22)
[2018-09-29] MEDS: SODIUM HYPOCHLORITE 0.125% 473 ML BOTTLE TP SCH ×2 (08:22→20:27)
[2018-09-29] MEDS: THERAHONEY GEL 1.5 OZ TUBE TOP SCH ×2 (08:22→20:26)
[2018-09-29] MEDS: PROTEIN SUPPLEMENT (PROSTAT) 30 ML LIQUID GT SCH ×2 (08:23→16:21)
[2018-09-29] MEDS ORDERED: NEOMY/BACITRA/POLYMYXIN B OINT UD PACKET TP SCH (09:00)
[2018-09-29] MEDS ORDERED: ASPIRIN 81 MG TAB.CHEW GT SCH (09:00)
[2018-09-29] MEDS: VANCOMYCIN IV 1 G in PREMIXED 0 EACH IV SCH (09:40)
[2018-09-29] MEDS: IV 1/2NS 1000 ML 1,000 ML IV PRN ×2 (09:46→19:58)
[2018-09-29 11:23] VITALS: BP 126/76
[2018-09-29] MEDS: GLUCERNA 1.2 1000ML LIQUID GT PRN (12:10)
--- NOTE | 2018-09-29 12:14 | NUR ---
CLINICAL PHARMACY NOTE:VANCOMYCIN DOSING To continue vancomycin dosing on 63 y/o male 165.1 cm 74.8 kg for sepsis Temp 100.7f BUN 41 Scr 1.0 WBC 14.2 also on Zosyn Will continue vancomycin 1gm ivpb q16h estimated trough 15. Will order trough level prior to 4th dose (not ordered yet). 3rd dose due tomorrow at 0200. Will continue to monitor
[2018-09-29 15:19] VITALS: BP 113/70
--- NOTE | 2018-09-29 19:05 | NUR ---
Pt received on Muñoz ventilator with the following settings of AC-12, Vt-500, PEEP+5, FIO2-28%, trached with Shiley#6 DCT trach, which is in the place and secure. Pt tachypneic and tachycardic. Airway care done, pt responded to physical stimuli. Suction small amount of dark secretion, TERESA Almanzar notified. In-line HHN tx with 0.5mg Atrovent given. Cont. pulse ox on. HME changed. PPE used. Resus. bag and back up trach at bedside. Vent and alarms checked and reset.
--- NOTE | 2018-09-29 20:00 | NUR ---
RECEIVED PT. OPEN HIS EYES TO VERBAL STIMULI. TRACH TO VENT W/ SETTINGS OF AC-12,TV-500, FIO2-28%, PEEP-+5. SUCTIONED VIA TRACH W/ THICH TANNISH MUCOUS MOD AMT. G-TUBE INTACT, CHECKED PLACEMENT & CHECKED RESIDUAL NONE NOTED, TUBE FDG OFF WHEN RECEIVED. ON TUBE FDG OF GLUCERNA 1.2 @ 60CC/HR. IVF 1/2NS @ 150CC/HR VIA RIJ TLC. REPOSITIONED ON HIS SIDE W/ HOB ELEVATED.
[2018-09-29 20:13] VITALS: BP 109/69
[2018-09-29] MEDS: MULTIVITAMINS,THERAPEUTIC TABLET PO SCH (20:22)
[2018-09-29] MEDS: RIVAROXABAN 15 MG TABLET GT SCH (20:23)
--- NOTE | 2018-09-29 22:30 | NUR ---
WOUND CARE DONE ORDERED. REPOSITIONED & SUCTIONED.
[2018-09-30 00:04] VITALS: BP 112/69
[2018-09-30] MEDS: IPRATROPIUM BROMIDE 0.5 MG/2.5 ML NEBU NEB SCH ×4 (01:03→19:16)
[2018-09-30] MEDS: VANCOMYCIN IV 1 G in PREMIXED 0 EACH IV SCH ×2 (01:40→18:00)
--- NOTE | 2018-09-30 02:30 | NUR ---
PT. HAS COFFEE GROUND MUCOUS COMING OUT FROM THE MOUTH, VIA TRACH & ALSO ON BOTH NARES. NO COFFEE GROUND DRAINAGE FROM G-TUBE, Jessica FRANCO NOTIFIED W/ ORDERS.
[2018-09-30] MEDS ORDERED: PANTOPRAZOLE SODIUM IV 80 MG in IV DEXTROSE 5% 500 ML IV SCH (03:00)
[2018-09-30] MEDS ORDERED: OCTREOTIDE ACETATE DRIP 1,250 MCG in IV NORMAL SALINE 247.5 ML IV PRN (03:00)
--- NOTE | 2018-09-30 03:00 | NUR ---
Brenda HULL WIND UP WORKER ALSO NOTIFIED OF TEMP-101.4, HR-150-160/MIN. W/ ORDERS. SPUTUM C&S, GRAM STAIN SENT TO LAB.
[2018-09-30] MEDS ORDERED: OCTREOTIDE ACETATE 50 MCG/1 ML ML ONE (03:06)
[2018-09-30] MEDS ORDERED: OCTREOTIDE ACETATE 500 MCG/1 ML VIAL ONE (03:06)
[2018-09-30] MEDS ORDERED: OCTREOTIDE ACETATE 100 MCG/1 MLVIAL ONE (03:06)
--- NOTE | 2018-09-30 03:10 | NUR ---
COOLING MEASURES APPLIED & TYLENOL 650MG GIVEN VIA G-TUBE.
[2018-09-30] MEDS: ACETAMINOPHEN 325 MG TABLET PO PRN (03:20)
[2018-09-30 03:24] LABS: BASOPHILS % (AUTO) 0.1 % (0.0-2.0); EOSINOPHILS % (AUTO) 0.1 % (0.0-7.0); HEMATOCRIT 40.7 % (36.7-47.1); HEMOGLOBIN 13.1 g/dL (12.5-16.3); LYMPHOCYTES # (AUTO) 0.5 K/uL (20.0-40.0); LYMPHOCYTES % (AUTO) 3.2 % (20.5-51.5); MEAN CORPUSCULAR HEMOGLOBIN 26.5 uug (23.8-33.4); MEAN CORPUSCULAR HGB CONC 32 g/dL (32.5-36.3); MEAN CORPUSCULAR VOLUME 82.3 fL (73.0-96.2); MONOCYTES # (AUTO) 0.4 K/uL (2.0-10.0); MONOCYTES % (AUTO) 2.6 % (0.0-11.0); NEUTROPHILS # (AUTO) 15.8 K/uL (1.8-8.9); PLATELET COUNT (AUTO) 307 K/uL (152-348); RED BLOOD CELL COUNT(AUTO) 4.94 MIL/uL (4.06-5.63); WHITE BLOOD COUNT (AUTO) 16.8 K/uL (3.6-10.2)
[2018-09-30] MEDS ORDERED: OCTREOTIDE ACETATE 50 MCG in IV NORMAL SALINE 50 ML IV ONE (03:30)
[2018-09-30] MEDS ORDERED: PANTOPRAZOLE SODIUM IV 80 MG in IV DEXTROSE 5% 100 ML IV ONE (03:30)
[2018-09-30 04:00] VITALS: BP 141/67
[2018-09-30] MEDS ORDERED: METRONIDAZOLE 500 MG/NS 100ML 100 ML IV ONE (04:21)
--- NOTE | 2018-09-30 04:22 | NUR ---
inserted ngt [place] sump connected to low wall suction w/ 400cc coffee ground drainage.
[2018-09-30] MEDS: IV 1/2NS 1000 ML 1,000 ML IV PRN ×3 (04:25→20:21)
[2018-09-30 04:26] LABS: BAND % (MANUAL) 45 % (0-10); LYMPHOCYTES % (MANUAL) 3 % (20-40); METAMYELOCYTES % 1 % (0-1); MYELOCYTES % 1 % (0-0); NEUTROPHILS % (MANUAL) 48 % (42-75)
--- NOTE | 2018-09-30 05:00 | NUR ---
AM CARE DONE. TRACH CARE DONE. CLEANED G-TUBE W/ NS & H2O2, DRSG APPLIED.
[2018-09-30] MEDS: CHOLECALCIFEROL 1,000 UNIT TABLET GT SCH (05:24)
[2018-09-30] MEDS: POLYVINYL ALCOHOL OPHT DROPS 15 ML BOTTLE EACHEYE SCH ×3 (05:25→21:32)
[2018-09-30] MEDS ORDERED: METRONIDAZOLE 500 MG/NS 100ML 500 MG in PREMIXED 1 EACH IV SCH ×2 (06:00→14:00)
--- NOTE | 2018-09-30 06:00 | NUR ---
PT. IS NPO. NGT DRAINAGE TOTAL OF 1000CC COFFEE GROUND., UPDATED L DELLA FRANCO.
[2018-09-30 07:40] VITALS: BP 113/69
--- NOTE | 2018-09-30 07:40 | NUR ---
Pt received in semi fowelr's position, unable to communicate, and on continuous mechanical ventilation via Shiley 6 DCT trach. Pt received on Muñoz ventilator with ordered settings of A/C-12, VT-500, PEEP+5, FIO2-28%. Tolerating vent settings well. SpO2-98% Sxn'd & lavaged as needed. Suctioned small amounts of thick brownish/red secretions. Trach is patent and secured. Minimal occluding volume technique used to assess cuff inflation. In-line nebulizer treatments given as ordered Q6 with Atrovent. Treatments tolerated well, with no adverse reactions noted. Ventilator alarm parameters checked, on and audible. Bag/valve/mask and backup trach at bedside. HME and trach care done. PPE used. Will continue to monitor.
[2018-09-30] MEDS ORDERED: OCTREOTIDE ACETATE 50 MCG/1 ML ML SQ SCH (08:00)
--- NOTE | 2018-09-30 08:17 | NUR ---
report received from Suzan MOORE, 63 yr old male admitted as [facility] status on 09/28/18 for UTI, SEPSIS. Afebrile last night with 101.4, ngt was placed and drained 1000 ml of coffee ground output.. is npo. IV 1/2 NS at 150ml/hr. ekg is sinus tach Addendum: 09/30/18 at 0817 by LAUREN BELLA RN Amended: Links added.
[2018-09-30] MEDS: PIPERACILLIN/TAZOBACTAM/D5W 3.375 G in PREMIXED 1 EACH IV SCH ×3 (08:40→23:30)
[2018-09-30] MEDS: METOPROLOL TARTRATE 50 MG TABLET PO SCH ×2 (08:41→20:05)
[2018-09-30] MEDS: LOSARTAN POTASSIUM 50 MG TABLET GT SCH (08:41)
[2018-09-30 08:57] LABS: ABG BASE EXCESS -2.8 mmol/L; ABG HCO3 20.3 mmol/L; ABG PCO2 30.4 mmHg (35.0-45.0); ABG PH 7.442 (7.350-7.450); ABG PO2 71.9 mmHg (75.0-100.0); ABG SITE RIGHT RADIAL; ABG TOTAL HEMOGLOBIN 13.2 G/dL (13.5-18.0); COHb 1.6 % (0.5-1.5); MetHb 0.2 % (0.0-1.5); O2Hb 92.8 % (94.0-97.0); VENT MODE VENT - A/C; VT, ABG 500 mL
[2018-09-30] MEDS: ASCORBIC ACID 500 MG TABLET GT SCH ×2 (08:59→20:06)
[2018-09-30] MEDS ORDERED: PANTOPRAZOLE SODIUM 40 MG VIAL IV ONE (09:00)
[2018-09-30] MEDS: SODIUM HYPOCHLORITE 0.125% 473 ML BOTTLE TP SCH ×2 (09:00→20:07)
[2018-09-30] MEDS: NEOMY/BACITRAC/POLYMI OINT 28.35 GM TUBE TOP SCH (09:00)
[2018-09-30] MEDS ORDERED: ASPIRIN 81 MG TAB.CHEW GT SCH (09:00)
[2018-09-30] MEDS: LACOSAMIDE 100 MG/10 ML UDC GT SCH ×2 (09:07→20:03)
[2018-09-30] MEDS: PROTEIN SUPPLEMENT (PROSTAT) 30 ML LIQUID GT SCH ×2 (09:13→16:04)
[2018-09-30 09:35] LABS: CREATININE 1.8 mg/dL (0.6-1.3); MAGNESIUM 2.3 mg/dL (1.8-2.4); PHOSPHOROUS 4.5 mg/dL (2.5-4.9); POTASSIUM 3.9 mmol/L (3.5-5.1); TOTAL PROTEIN, SERUM 5.9 g/dL (6.4-8.2)
--- NOTE | 2018-09-30 10:00 | NUR ---
seen by dr Adelson. paris aware of abgs and labs and current status. Addendum: 09/30/18 at 1105 by LAUREN BELLA RN Amended: Links added. Addendum: 09/30/18 at 1109 by LAUREN BELLA RN Amended: Links added.
--- NOTE | 2018-09-30 10:30 | NUR ---
ngt not sumping, chest xray reported ngt tip not seen in the stomach. ngt advanced from 55 to 65cm. auscultated by 2 RNS. brandy requested and done. am meds not given pending ngt placement Addendum: 09/30/18 at 1109 by LAUREN BELLA RN Amended: Links added.
[2018-09-30] MEDS: LEVETIRACETAM 500 MG/5 ML LIQUID UDC GT SCH ×2 (10:45→20:03)
[2018-09-30 11:39] VITALS: BP 100/56
[2018-09-30 11:56] LABS: BASOPHILS % (AUTO) 0.2 % (0.0-2.0); LYMPHOCYTES # (AUTO) 0.5 K/uL (20.0-40.0); MONOCYTES # (AUTO) 0.3 K/uL (2.0-10.0); NEUTROPHILS # (AUTO) 9.9 K/uL (1.8-8.9)
[2018-09-30 12:00] LABS: EOSINOPHILS % (AUTO) 0.2 % (0.0-7.0); LYMPHOCYTES % (AUTO) 4.9 % (20.5-51.5); MEAN CORPUSCULAR HEMOGLOBIN 26.6 uug (23.8-33.4); MEAN CORPUSCULAR HGB CONC 33 g/dL (32.5-36.3); MONOCYTES % (AUTO) 3.1 % (0.0-11.0); NEUTROPHILS % (AUTO) 91.6 % (38.5-71.5); PLATELET COUNT (AUTO) 236 K/uL (152-348); RED BLOOD CELL COUNT(AUTO) 4.45 MIL/uL (4.06-5.63)
[2018-09-30 12:05] LABS: HEMATOCRIT 36.5 % (36.7-47.1); HEMOGLOBIN 11.8 g/dL (12.5-16.3); WHITE BLOOD COUNT (AUTO) 10.8 K/uL (3.6-10.2)
[2018-09-30 12:24] LABS: BAND % (MANUAL) 17 % (0-10); LYMPHOCYTES % (MANUAL) 6 % (20-40); METAMYELOCYTES % 5 % (0-1); MONOCYTES % (MANUAL) 3 % (2-10); NEUTROPHILS % (MANUAL) 69 % (42-75)
--- NOTE | 2018-09-30 12:45 | NUR ---
CLINICAL PHARMACY NOTE:VANCOMYCIN DOSING S: To continue vancomycin dosing on 63 y/o male patient for sepsis O; Temp 100.7f BUN 61 Scr 1.8 WBC 16.8 ht 165 cm wt 76 kg Plan Will continue same dose of vancomycin 1gm IVPB q16h for now. 4th dose due today at 1800. Plan to check vanco trough level today at 1730 (srcr 1.8 has been noted). Pharmacy shall review the level in am & adjust the dose if needed. Will continue to monitor Addendum: 09/30/18 at 1903 by TEA LAWSON ADM vancomycin trough was 25.0 above therapeutic range will hold the dose tonight. Ordered a Vancomcyin random @ 0600 with other labs due; will ck renal fxn and level and will dose vanco by level due to unstable renal fxn
--- NOTE | 2018-09-30 13:17 | NUR ---
WOUND CARE CONSULT: PT PRESENTS WITH STAGE 4 SACRAL ULCER, PRESENT ON ADMISSION. RECOMMENDATIONS MADE FOR SKIN PROTECTION AND WOUND CARE. DISCUSSED WITH NURSING STAFF. SURGICAL TEAM FOLLOWING PT. DR KAREN SOUZA NOTIFIED OF PT'S ADMISSION. PT ON FIRST STEP [facility]. WILL SEE PRN. GILL IN AGREEMENT WITH PLAN OF CARE. Addendum: 09/30/18 at 1318 by EFFIE CHIU RN Amended: Links added.
[2018-09-30] MEDS: SODIUM HYPOCHLORITE 0.125% 473 ML BOTTLE TP PRN ×3 (13:20→13:22)
[2018-09-30] MEDS: THERAHONEY GEL 1.5 OZ TUBE TOP SCH ×2 (13:20→20:07)
--- NOTE | 2018-09-30 13:43 | NUR ---
wound care done. sacral wound looks clean and no drainage. central line dressing done to tight IJ triple lumen catheter Addendum: 09/30/18 at 1343 by LAUREN BELLA RN Amended: Links added.
[2018-09-30 15:45] VITALS: BP 107/53
[2018-09-30] MEDS: SUCRALFATE 1 G/10 ML LIQUID UDC GT SCH ×2 (16:05→20:07)
--- NOTE | 2018-09-30 18:29 | NUR ---
1800 vancomycin not given. vanco level 25.0 rx aware Addendum: 09/30/18 at 1829 by LAUREN BELLA RN Amended: Links added.
[2018-09-30] MEDS: PANTOPRAZOLE SODIUM 40 MG VIAL IV SCH (20:02)
[2018-09-30] MEDS: MULTIVITAMINS,THERAPEUTIC TABLET GT SCH (20:06)
[2018-09-30 20:20] VITALS: BP 104/50
[2018-09-30] MEDS ORDERED: RIVAROXABAN 15 MG TABLET GT SCH (21:00)
[2018-10-01 00:04] VITALS: BP 124/63
[2018-10-01] MEDS: IPRATROPIUM BROMIDE 0.5 MG/2.5 ML NEBU NEB SCH ×4 (01:09→19:48)
[2018-10-01] MEDS: IV 1/2NS 1000 ML 1,000 ML IV PRN ×3 (03:50→19:41)
[2018-10-01 04:20] VITALS: BP 105/61
[2018-10-01] MEDS: CHOLECALCIFEROL 1,000 UNIT TABLET GT SCH (05:32)
[2018-10-01] MEDS: SUCRALFATE 1 G/10 ML LIQUID UDC GT SCH ×4 (05:32→20:10)
[2018-10-01] MEDS: POLYVINYL ALCOHOL OPHT DROPS 15 ML BOTTLE EACHEYE SCH ×3 (05:33→21:31)
[2018-10-01 06:15] LABS: BASOPHILS % (AUTO) 0.1 % (0.0-2.0); EOSINOPHILS # (AUTO) 0.1 K/uL (0.0-0.7); EOSINOPHILS % (AUTO) 1.3 % (0.0-7.0); HEMATOCRIT 34.7 % (36.7-47.1); HEMOGLOBIN 11.2 g/dL (12.5-16.3); LYMPHOCYTES # (AUTO) 0.4 K/uL (20.0-40.0); LYMPHOCYTES % (AUTO) 3.7 % (20.5-51.5); MEAN CORPUSCULAR HEMOGLOBIN 26.6 uug (23.8-33.4); MEAN CORPUSCULAR HGB CONC 32 g/dL (32.5-36.3); MEAN CORPUSCULAR VOLUME 82.5 fL (73.0-96.2); MONOCYTES # (AUTO) 0.3 K/uL (2.0-10.0); MONOCYTES % (AUTO) 2.4 % (0.0-11.0); NEUTROPHILS # (AUTO) 9.9 K/uL (1.8-8.9); NEUTROPHILS % (AUTO) 92.5 % (38.5-71.5); PLATELET COUNT (AUTO) 202 K/uL (152-348); RED BLOOD CELL COUNT(AUTO) 4.21 MIL/uL (4.06-5.63); WHITE BLOOD COUNT (AUTO) 10.7 K/uL (3.6-10.2)
[2018-10-01 06:33] LABS: BILIRUBIN,TOTAL 0.9 mg/dL (0.2-1.0); CREATININE 1.9 mg/dL (0.6-1.3); MAGNESIUM 2.2 mg/dL (1.8-2.4); POTASSIUM 3.4 mmol/L (3.5-5.1); TOTAL PROTEIN, SERUM 5.3 g/dL (6.4-8.2)
--- NOTE | 2018-10-01 06:41 | NUR ---
END OF SHIFT REPORT Patient rested well in between care; repositioned q2h; trache care done; oral care done; NGT output 400; wound care done; continue to monitor; continue plan of care
[2018-10-01 07:58] VITALS: BP 96/54
[2018-10-01 07:58] LABS: BAND % (MANUAL) 5 % (0-10); EOSINOPHILS % (MANUAL) 6 % (0-8); LYMPHOCYTES % (MANUAL) 6 % (20-40); METAMYELOCYTES % 1 % (0-1); MONOCYTES % (MANUAL) 12 % (2-10); NEUTROPHILS % (MANUAL) 70 % (42-75)
--- NOTE | 2018-10-01 07:59 | NUR ---
RESTING COMFORTABLY WITH CURRENT VENT SETTINGS [id number]. NO SS OF PAIN, SATURATING 99%. NGT TO LOW SUCTION DRAINING CLEAR BROWN-COLOR SMALL AMOUNT. NPO EXCEPT MEDS. CONTINUE WOTH [facility] MONITORING
[2018-10-01] MEDS: LOSARTAN POTASSIUM 50 MG TABLET GT SCH (08:04)
[2018-10-01] MEDS: PIPERACILLIN/TAZOBACTAM/D5W 3.375 G in PREMIXED 1 EACH IV SCH ×2 (08:04→16:27)
[2018-10-01] MEDS: PROTEIN SUPPLEMENT (PROSTAT) 30 ML LIQUID GT SCH ×2 (08:05→16:29)
[2018-10-01] MEDS: LACOSAMIDE 100 MG/10 ML UDC GT SCH ×2 (08:05→20:02)
[2018-10-01] MEDS: ASCORBIC ACID 500 MG TABLET GT SCH ×2 (08:06→20:05)
[2018-10-01] MEDS: LEVETIRACETAM 500 MG/5 ML LIQUID UDC GT SCH ×2 (08:06→20:02)
[2018-10-01] MEDS: ACETAMINOPHEN 325 MG TABLET GT PRN (08:06)
[2018-10-01] MEDS: PANTOPRAZOLE SODIUM 40 MG VIAL IV SCH ×2 (08:06→20:02)
[2018-10-01] MEDS: METOPROLOL TARTRATE 50 MG TABLET PO SCH ×2 (08:07→20:03)
[2018-10-01] MEDS: THERAHONEY GEL 1.5 OZ TUBE TOP SCH ×2 (08:08→20:05)
[2018-10-01] MEDS: NEOMY/BACITRAC/POLYMI OINT 28.35 GM TUBE TOP SCH (08:08)
[2018-10-01] MEDS: SODIUM HYPOCHLORITE 0.125% 473 ML BOTTLE TP SCH ×2 (08:09→20:08)
--- NOTE | 2018-10-01 11:30 | NUR ---
seen by dr cruz for renal and wilfredo higgins for medical follow-up. see notes. no fever
[2018-10-01 12:00] VITALS: BP 92/68
--- NOTE | 2018-10-01 13:05 | NUR ---
Pt received in semi fowelr's position, obtunded, unable to communicate, and on continuous mechanical ventilation via Shiley 6 DCT trach. Pt received on Muñoz ventilator with ordered settings of A/C-12, VT-500, PEEP+5, FIO2-28%. Tolerating vent settings well. SpO2-99% Sxn'd & lavaged as needed. Suctioned small amounts of thick yellowish/bergeron secretions. Trach is patent and secured. Minimal occluding volume technique used to assess cuff inflation. In-line nebulizer treatments given as ordered Q6 with Atrovent. Treatments tolerated well, with no adverse reactions noted. Ventilator alarm parameters checked, on and audible. Bag/valve/mask and backup trach at bedside. HME changed and trach care done. PPE used. Will continue to monitor.
--- NOTE | 2018-10-01 13:06 | NUR ---
CLINICAL PHARMACY NOTE:VANCOMYCIN DOSING S: To continue vancomycin dosing on 63 y/o male patient for sepsis O; Temp 98.6f BUN 72 Scr 1.9 WBC 10.7 ht 165 cm wt 76 kg Vancomycin random today at 0600:21.1 Plan Since renal function is unstable(scr 1.9) , will continue to dose by fall-off random level. No dose will be given today since level is over 20(21.1). Another random is on order for tomorrow for further dosing. Will follow the level.
[2018-10-01] MEDS ORDERED: POTASSIUM CHLORIDE 20 MEQ POWDER PACKET GT ONE (15:45)
--- NOTE | 2018-10-01 17:10 | NUR ---
seen by rick belle see notes.
--- NOTE | 2018-10-01 18:04 | NUR ---
1400 EYE DROPS NOT GIVEN, MEDS NOT AVAILABLE FROM PHARMACY
[2018-10-01 18:13] VITALS: BP 102/61
--- NOTE | 2018-10-01 19:30 | NUR ---
ROUNDS MADE PATIENT IN BED ,AWAKE/OBTUNDED , OPEN EYES SPONTANEOUSLY BUT DOESN'T FOLLOW COMMANDS .UPPER AND LOWER EXTREMITIES FLACCID.TRACH TO VENT -SHILEY NO .6 VENT SETTINGS AC16/TV500/FIO2 28% +5 PEEP TOLERATING VENT SETTING BREATHING SYNCHRONIZING WITH VENT, NO RESPIRATORY DISTRESS, + COUGH + GAG , SUCTION NEEDED WITH THIN TO THICK SECRETIONS WHITISH TO [place] IN COLOR VIA TRACH /MOUTH .SATURATION 100%,RR 20 .LEFT NARE NGT TO ILWS WITH COFFEE GROUND OUTPUT PER DAY RN SHE GOT 450ML OUTPUT ,PEG TUBE CLAMP USED ONLY FOR MEDICATION ABDOMEN AREA HARD AND DISTENDED, ABSENT BOWEL SOUNDS IN 4 QUADRANT.TUBE FEEDINGS NOT STARTED C/O HIGH GASTRIC RESIDUAL AND DISTENDED ABDOMEN , WILL CONTINUE TO MONITOR AND ENDORSED IN AM ABOUT TUBE FEEDINGS .PATIENT GETTING NORMAL SALINE AT 150 ML/HR IF FLUIDS . F/C TO BSD AND IS AND OS DONE Q SHIFT . CONTACT ISOLATION OBSERVED . NO FAMILY NOTED OR OBSERVED.
[2018-10-01] MEDS: MULTIVITAMINS,THERAPEUTIC TABLET GT SCH (20:02)
[2018-10-01] MEDS: SODIUM HYPOCHLORITE 0.125% 473 ML BOTTLE TP PRN (20:05)
[2018-10-01 20:57] VITALS: BP 147/74
[2018-10-02] VITALS (9 sets, daily range): BP systolic 111–147; BP diastolic 34–84
--- NOTE | 2018-10-02 00:01 | NUR ---
dressing changed sacral area cleanse with Dakins solution pat dry and apply therahoney ,pack with saline moistened Kerlix cover with Mepilex.
[2018-10-02] MEDS: PIPERACILLIN/TAZOBACTAM/D5W 3.375 G in PREMIXED 1 EACH IV SCH ×2 (00:10→08:24)
[2018-10-02] MEDS: IPRATROPIUM BROMIDE 0.5 MG/2.5 ML NEBU NEB SCH ×4 (00:59→19:15)
--- NOTE | 2018-10-02 01:56 | NUR ---
Pt transferred to [facility] with two RN's and RT at bedside. No distress noted. Addendum: 10/03/18 at 0158 by LINNEA TURNER RT Pt transferred to [facility] with two RN's and RT at bedside at 21:00 10/02/2018
[2018-10-02] MEDS: IV 1/2NS 1000 ML 1,000 ML IV PRN (04:05)
[2018-10-02] MEDS: CHOLECALCIFEROL 1,000 UNIT TABLET GT SCH (05:14)
[2018-10-02] MEDS: POLYVINYL ALCOHOL OPHT DROPS 15 ML BOTTLE EACHEYE SCH ×3 (05:14→22:10)
--- NOTE | 2018-10-02 06:00 | NUR ---
am care done ,changed soiled linens and gown . oral and trach care done suction via mouth and via trach . . f/c done . turned and reposition patient . elevated upper and lower extremities with pillows heels off bed . peg dressing done.due meds given via peg and clamp . left ngt off to suction for 1 hour after meds given . will endorsed to turned it to suction after 1 hour .
[2018-10-02 06:35] LABS: BASOPHILS % (AUTO) 0.2 % (0.0-2.0); EOSINOPHILS # (AUTO) 0.2 K/uL (0.0-0.7); EOSINOPHILS % (AUTO) 1.2 % (0.0-7.0); HEMATOCRIT 36.1 % (36.7-47.1); HEMOGLOBIN 11.4 g/dL (12.5-16.3); LYMPHOCYTES # (AUTO) 0.7 K/uL (20.0-40.0); MEAN CORPUSCULAR HEMOGLOBIN 26.1 uug (23.8-33.4); MEAN CORPUSCULAR HGB CONC 32 g/dL (32.5-36.3); MEAN CORPUSCULAR VOLUME 82.4 fL (73.0-96.2); MONOCYTES # (AUTO) 0.7 K/uL (2.0-10.0); MONOCYTES % (AUTO) 4.6 % (0.0-11.0); NEUTROPHILS # (AUTO) 12.7 K/uL (1.8-8.9); PLATELET COUNT (AUTO) 255 K/uL (152-348); RED BLOOD CELL COUNT(AUTO) 4.38 MIL/uL (4.06-5.63); WHITE BLOOD COUNT (AUTO) 14.3 K/uL (3.6-10.2)
--- NOTE | 2018-10-02 06:37 | NUR ---
unable to weight patient bed scale is not working .
[2018-10-02] MEDS: SUCRALFATE 1 G/10 ML LIQUID UDC GT SCH ×2 (06:38→12:08)
[2018-10-02 06:44] LABS: CREATININE 1.8 mg/dL (0.6-1.3); MAGNESIUM 2.1 mg/dL (1.8-2.4); PHOSPHOROUS 3.9 mg/dL (2.5-4.9); POTASSIUM 3.1 mmol/L (3.5-5.1); VANCOMYCIN,RANDOM 15.1 ug/mL (18.0-26.0)
--- NOTE | 2018-10-02 07:27 | NUR ---
RESTING COMFORTABLY WITH CURRENT VENT SETTINGS OF 12-500-28-5 SATURATING 100%. INITIATED DC PLANNING
--- NOTE | 2018-10-02 07:37 | NUR ---
PT RECEIVED ON TY VENT. ALARMS CHECKED, ARE ON AND AUDIBLE. SUCTION NEEDED. ORAL CARE DONE. BETH #6 DCT TRACH IS PATENT AND SECURED VIA TRACH TIES. VENTILATOR IS PLUGGED INTO RED EMERGENCY OUTLET. AMBU BAG AND BACK UP TRACH AT BEDSIDE. WILL CONTINUE TO MONITOR.
[2018-10-02] MEDS: ACETAMINOPHEN 325 MG TABLET GT PRN (08:24)
[2018-10-02] MEDS: ASCORBIC ACID 500 MG TABLET GT SCH (08:24)
[2018-10-02] MEDS: LOSARTAN POTASSIUM 50 MG TABLET GT SCH (08:24)
[2018-10-02] MEDS: PANTOPRAZOLE SODIUM 40 MG VIAL IV SCH ×2 (08:25→21:24)
[2018-10-02] MEDS: METOPROLOL TARTRATE 50 MG TABLET PO SCH (08:25)
[2018-10-02] MEDS: PROTEIN SUPPLEMENT (PROSTAT) 30 ML LIQUID GT SCH ×2 (08:26→17:22)
[2018-10-02] MEDS: LEVETIRACETAM 500 MG/5 ML LIQUID UDC GT SCH (08:26)
[2018-10-02] MEDS: LACOSAMIDE 100 MG/10 ML UDC GT SCH (08:26)
[2018-10-02] MEDS: THERAHONEY GEL 1.5 OZ TUBE TOP SCH ×2 (08:27→21:24)
[2018-10-02] MEDS: SODIUM HYPOCHLORITE 0.125% 473 ML BOTTLE TP SCH ×2 (08:28→21:00)
[2018-10-02] MEDS: NEOMY/BACITRAC/POLYMI OINT 28.35 GM TUBE TOP SCH (08:28)
[2018-10-02] MEDS ORDERED: VANCOMYCIN IV 1 G in PREMIXED 0 EACH IV ONE (09:00)
--- NOTE | 2018-10-02 09:23 | NUR ---
SEEN BY TEODORO NGUYEN VERIFIED FEEDING ORDER, ADVISED TO HOLD TILL FURTHER ORDER DUE TO HIGH RESIDUAL FROM NGT, NO BOWEL SOUNDS, TENDER AND LARGE ABDOMEN. WILL FOLLOW-UP CT ABDOMEN ORDERED
--- NOTE | 2018-10-02 10:49 | NUR ---
results of ct abdomen noted by marine steward on duty spoke with returned case inspector about plan of care
[2018-10-02] MEDS: POTASSIUM CHLORIDE 50 ML IV SCH ×2 (11:07→12:50)
[2018-10-02] MEDS ORDERED: IV NORMAL SALINE 250 ML IV ONE (12:30)
[2018-10-02] MEDS ORDERED: SWABABLE VALVE TRANSFER SET EA MC ONE (12:30)
[2018-10-02] MEDS ORDERED: IOHEXOL 350 100 ML INFUS..BTL ONE (12:30)
[2018-10-02] MEDS ORDERED: DIATR MEGLU/DIATRIZOATE SODIUM 30 ML SOLUTION ONE (12:31)
--- NOTE | 2018-10-02 12:35 | NUR ---
15 CM LONG BEEN WITHDRAW FROM NGT ADVISED BY BABYSITTER. AWAITING FAMILY CONFERENCE REGARDING PLAN OF CARE
[2018-10-02] MEDS ORDERED: IV NORMAL SALINE 500 ML IV ONE (12:45)
[2018-10-02] MEDS: IV D5/ 0.9% NACL 1,000 ML IV PRN (12:49)
--- NOTE | 2018-10-02 13:23 | NUR ---
CLINICAL PHARMACY NOTE:VANCOMYCIN DOSING S: To continue vancomycin dosing on 63 y/o male patient for sepsis O; Temp 98.2f BUN 69 Scr 1.8 WBC 14.3 ht 165 cm wt 76 kg Vancomycin random today at 0600: 15.1 Plan Since renal function continues to be unstable, will continue to dose by fall-off random level. Per random level, dosed another 1gm vanco today at 0900. Next random level due tomorrow with am labs. Will check in am and re-dose as appropriate. Will follow
--- NOTE | 2018-10-02 14:17 | NUR ---
1:10pm: Family conference held today with patient's Zoya. Present at the meeting were patient's Zoya, her neighbor cathie Farrell , family caseworker TERESA Hilario, and Dr. Cristhian Varma, CHILD DEVELOPMENT ASSISTANT. Dr. Varma discussed patient's current medical condition/diagnosis, prognosis, and treatment plan options. Patient's was not able to make an immediate decision on treatment plan options at this time, however expressed wanting to continue to keep patient at a Full Code status. Dr. Varma provided patient's with some time to discuss treatment options with the rest of the family, but stated to make a decision as soon as possible. Patient's Zoya expressed understanding and stated that she will let the doctor and staff know of her decision by later on today.
--- NOTE | 2018-10-02 14:45 | NUR ---
TELEPHONE CONSENT FOR CT ABDOMEN/PELVIS WITH AND WITHOUT CONTRAST OBTAINED FROM NAYELI. ALSO SEEN BY GI LIBRARY AIDE MINA, SEE NOTES
[2018-10-02] MEDS: FLUCONAZOLE 200 MG/NS 100ML IV 100 MG in PREMIXED 1 EACH IV SCH (15:49)
--- NOTE | 2018-10-02 16:28 | NUR ---
TO CT SCAN FOR CT ABDOMEN AND PELVIS VIA BED WITH RN AND RESPIRATORY STAFF ON BOARD
--- NOTE | 2018-10-02 16:51 | NUR ---
pt transported to radiology, CT exam ordered. pt hand bagged to CT placed on sullivan in rad with previous settings. no distress noted during/following procedure. pt back to room no incident noted during trans.
--- NOTE | 2018-10-02 17:00 | NUR ---
BACK FROM RADIOLOGY, AWAITING CT ABDOMEN. REMAINS ST ON MONITOR. CONTINUE WITH [facility] OBSERVATION. FAMILY WANTS TO MAINTAIN FULL CODE STATUS DISCUSSED WITH HAT LACER, [place] DECORATOR
[2018-10-02] MEDS: MEROPENEM 1 G in IV NORMAL SALINE 100 ML IV SCH (17:18)
--- NOTE | 2018-10-02 18:42 | NUR ---
results of ct abdomen/pelvis/cxr noted by income auditor see notes
--- NOTE | 2018-10-02 19:17 | NUR ---
Pt received on Muñoz ventilator with the following settings of AC-12, Vt-500, PEEP+5, FIO2-28%, trached with Shiley#6 DCT trach, which is in the place and secure. Pt tachypneic and tachycardic. Airway care done, pt responded to physical stimuli. In-line HHN tx with 0.5mg Atrovent given. Cont. pulse ox on. HME changed. PPE used. Resus. bag and back up trach at bedside. Vent and alarms checked and reset.
[2018-10-02] MEDS ORDERED: NOREPINEPHRINE BITARTRATE 16 MG in IV DEXTROSE 5% 500 ML IV PRN (19:30)
--- NOTE | 2018-10-02 19:30 | NUR ---
Report received. Patient from subacute 09/28/18 secondary to UTI/SEPSIS. Eyes open, doesn't track or follow any commands. Extremities flaccid. With trache to vent with settings as follows: AC=12, LC=960ru, FIO2=28% and PEEP=5. Sat 99-100%. Abdomen markedly distended, firm, no bowel sounds. Plan of care discussed with Alyson Varma and Harshal Hu. Assessment completed; see flow sheet for details. Addendum: 10/03/18 at 0144 by KEV BEAN RN Amended: Links added. Addendum: 10/03/18 at 0145 by KEV BEAN RN Amended: Links added. Addendum: 10/03/18 at 0148 by KEV BEAN RN Amended: Links added. Addendum: 10/03/18 at 0148 by KEV BEAN RN Amended: Links added. Addendum: 10/03/18 at 0148 by KEV BEAN RN Amended: Links added. Addendum: 10/03/18 at 0149 by KEV BEAN RN Amended: Links added. Addendum: 10/03/18 at 0149 by KEV BEAN RN Amended: Links added.
--- NOTE | 2018-10-02 19:50 | NUR ---
Seen by Jacob VALERIO; made aware of plan of care. No new order. Addendum: 10/03/18 at 0145 by KEV BEAN RN Amended: Links added. Addendum: 10/03/18 at 0148 by KEV BEAN RN Amended: Links added. Addendum: 10/03/18 at 0148 by KEV BEAN RN Amended: Links added. Addendum: 10/03/18 at 0148 by KEV BEAN RN Amended: Links added. Addendum: 10/03/18 at 0149 by KEV BEAN RN Amended: Links added. Addendum: 10/03/18 at 0149 by KEV BEAN RN Amended: Links added.
[2018-10-02] MEDS: SODIUM HYPOCHLORITE 0.125% 473 ML BOTTLE TP PRN (21:23)
[2018-10-02] MEDS: LEVETIRACETAM IV 1,500 MG in IV DEXTROSE 5% 100 ML IV SCH (21:25)
--- NOTE | 2018-10-02 22:15 | NUR ---
Alyson Varma NP visited; informed of patient's tachycardia. BPs have been stable. No new orders. Addendum: 10/03/18 at 0148 by KEV BEAN RN Amended: Links added. Addendum: 10/03/18 at 0148 by KEV BEAN RN Amended: Links added. Addendum: 10/03/18 at 0148 by KEV BEAN RN Amended: Links added. Addendum: 10/03/18 at 0149 by KEV BEAN RN Amended: Links added. Addendum: 10/03/18 at 0149 by KEV BEAN RN Amended: Links added.
--- NOTE | 2018-10-02 23:20 | NUR ---
Strategic Debriefing Specialist Constance called; patient is for Surgery tonight as per Dr. Moe. No calls received from him.
--- NOTE | 2018-10-02 23:30 | NUR ---
Call placed to Dr. Moe's exchange; Dr. Moe called. Order received. Call placed to patient's family. Spoke to patient's Zoya, daughter Vignesh and son-in-law Panchito. Phone Consent obtained from all parties.
[2018-10-03] VITALS (20 sets, daily range): BP systolic 98–135; BP diastolic 51–69
--- NOTE | 2018-10-03 00:45 | NUR ---
Surgery RN Kathleen called; report given. Patient remains with eyes open, not tracking and not following any commands. Suctioned; oral hygiene rendered.
[2018-10-03] MEDS ORDERED: LIDOCAINE HCL 1% 20 ML VIAL ONE (00:52)
[2018-10-03] MEDS ORDERED: BUPIVACAINE/EPI PF 0.25% 30 ML VIAL ONE (00:53)
--- NOTE | 2018-10-03 01:00 | NUR ---
Transported to OR per bed with 4 RNs and RT.
--- NOTE | 2018-10-03 01:00 | NUR ---
Pt transferred to OR with 4 RN's and RT at bedside. No distress noted.
[2018-10-03] MEDS ORDERED: MIDAZOLAM HCL 2 MG/2 ML VIAL ONE (01:02)
[2018-10-03] MEDS ORDERED: FENTANYL CITRATE 250 MCG/5 ML AMPUL ONE (01:02)
[2018-10-03] MEDS ORDERED: ROCURONIUM BROMIDE 50 MG/5 ML VIAL ONE (01:03)
[2018-10-03] MEDS: IPRATROPIUM BROMIDE 0.5 MG/2.5 ML NEBU NEB SCH ×4 (01:30→19:15)
--- NOTE | 2018-10-03 01:46 | NUR ---
HHN tx with 0.5mg Atrovent not given, pt still in OR. RN Amparo aware.
--- NOTE | 2018-10-03 04:00 | NUR ---
Patient back from surgery. Care as per LOAN ASSISTANT during recovery period. Dr. Moe here; spoke with patient's family re: post surgery diagnosis and prognosis. Order received for daily post op dressing changes with Dakin's solution.
[2018-10-03] MEDS: MEROPENEM 1 G in IV NORMAL SALINE 100 ML IV SCH ×2 (04:24→15:05)
[2018-10-03] MEDS ORDERED: EPHEDRINE SULFATE 50 MG/ML AMPUL ONE (04:53)
--- NOTE | 2018-10-03 05:05 | NUR ---
Report received from HYDRAULIC DESIGN ENGINEER. Patient S/P Ex-lap and repair of gastric ulcer. Surgical site with R and L JPs; draining serosanguineous fluids. Large abdominal dressing intact with serous stain noted under dressing. Assessment completed. Addendum: 10/03/18 at 0632 by KEV BEAN RN Amended: Links added.
[2018-10-03 05:17] LABS: HEMOGLOBIN 10.3 g/dL (12.5-16.3); MEAN CORPUSCULAR HEMOGLOBIN 26.1 uug (23.8-33.4)
[2018-10-03 05:19] LABS: BASOPHILS % (AUTO) 0.1 % (0.0-2.0); EOSINOPHILS # (AUTO) 0.3 K/uL (0.0-0.7); EOSINOPHILS % (AUTO) 0.8 % (0.0-7.0); HEMATOCRIT 33.4 % (36.7-47.1); LYMPHOCYTES # (AUTO) 3.1 K/uL (20.0-40.0); LYMPHOCYTES % (AUTO) 8.1 % (20.5-51.5); MEAN CORPUSCULAR HGB CONC 31 g/dL (32.5-36.3); MEAN CORPUSCULAR VOLUME 84.3 fL (73.0-96.2); MONOCYTES # (AUTO) 1.7 K/uL (2.0-10.0); MONOCYTES % (AUTO) 4.3 % (0.0-11.0); NEUTROPHILS % (AUTO) 86.7 % (38.5-71.5); PLATELET COUNT (AUTO) 541 K/uL (152-348); RED BLOOD CELL COUNT(AUTO) 3.96 MIL/uL (4.06-5.63)
[2018-10-03 05:24] LABS: CREATININE 1.8 mg/dL (0.6-1.3); POTASSIUM 3.7 mmol/L (3.5-5.1); VANCOMYCIN,RANDOM 16.9 ug/mL (18.0-26.0)
[2018-10-03] MEDS: POLYVINYL ALCOHOL OPHT DROPS 15 ML BOTTLE EACHEYE SCH ×3 (05:45→21:33)
[2018-10-03 05:54] LABS: WHITE BLOOD COUNT (AUTO) 38.1 K/uL (3.6-10.2)
--- NOTE | 2018-10-03 06:00 | NUR ---
Am care rendered. Sacral wound care treatment done. Patient opens eyes, but appears sedated from surgical procedure. Remains tachycardic. BPs monitored closely.
[2018-10-03 06:24] LABS: BAND % (MANUAL) 13 % (0-10); LYMPHOCYTES % (MANUAL) 7 % (20-40); METAMYELOCYTES % 2 % (0-1); MONOCYTES % (MANUAL) 2 % (2-10); MYELOCYTES % 3 % (0-0); NEUTROPHILS % (MANUAL) 71 % (42-75); PROMYELOCYTES % 2 %
--- NOTE | 2018-10-03 06:38 | NUR ---
Spoke to Crystal Lezama re: abnormal WBC; orders received.
[2018-10-03] MEDS: THERAHONEY GEL 1.5 OZ TUBE TOP SCH ×2 (07:55→20:06)
[2018-10-03] MEDS: NEOMY/BACITRAC/POLYMI OINT 28.35 GM TUBE TOP SCH (07:55)
[2018-10-03] MEDS: METRONIDAZOLE 500 MG/NS 100ML 500 MG in PREMIXED 1 EACH IV SCH ×3 (07:55→23:13)
[2018-10-03] MEDS: PANTOPRAZOLE SODIUM 40 MG VIAL IV SCH ×2 (07:55→20:05)
[2018-10-03] MEDS: SODIUM HYPOCHLORITE 0.125% 473 ML BOTTLE TP SCH ×3 (07:56→20:07)
--- NOTE | 2018-10-03 08:06 | NUR ---
TEODORO Varma here to see pt. Full report given. New orders received and carried out.
[2018-10-03] MEDS ORDERED: DEXTROSE 50% 50 ML DISP.SYRIN IV PRN (08:15)
[2018-10-03] MEDS: BLOOD SUGAR DIAGNOSTIC 1 EACH STRIP VI SCH ×4 (08:19→23:06)
[2018-10-03] MEDS: INSULIN REGULAR, HUMAN 300 UNIT/3 ML VIAL SQ PRN ×4 (08:21→23:07)
[2018-10-03 08:30] LABS: ABG PCO2 29.4 mmHg (35.0-45.0); ABG PO2 130.9 mmHg (75.0-100.0); ABG SITE RIGHT RADIAL; ABG TOTAL HEMOGLOBIN 11.2 G/dL (13.5-18.0); MetHb 0.3 % (0.0-1.5); O2Hb 97.6 % (94.0-97.0); VENT MODE VENT - A/C; VT, ABG 500 mL
--- NOTE | 2018-10-03 08:40 | NUR ---
Dr. Ortega here to see pt. Full report given. No new orders received.
[2018-10-03] MEDS: LEVETIRACETAM IV 1,500 MG in IV DEXTROSE 5% 100 ML IV SCH ×2 (08:49→20:07)
[2018-10-03] MEDS ORDERED: VANCOMYCIN IV 1 G in PREMIXED 0 EACH IV ONE (09:00)
[2018-10-03] MEDS: IV D5/ 0.9% NACL 1,000 ML IV PRN ×2 (10:03→21:27)
[2018-10-03] MEDS ORDERED: CEFAZOLIN 1 G VIAL MC ONE (10:11)
[2018-10-03] MEDS ORDERED: PROPOFOL 200 MG/20 ML BOTTLE IV ONE (10:11)
[2018-10-03] MEDS ORDERED: IV NORMAL SALINE 1000 ML BAG IV ONE (10:11)
[2018-10-03] MEDS ORDERED: ONDANSETRON 4 MG/2 ML VIAL IV ONE (10:11)
[2018-10-03] MEDS ORDERED: SEVOFLURANE 250 ML BOTTLE IH ONE (10:11)
[2018-10-03] MEDS ORDERED: METOCLOPRAMIDE HCL 10 MG/2 ML VIAL IV ONE (10:11)
[2018-10-03] MEDS ORDERED: LIDOCAINE-MPF 2% 5 ML VIAL MC ONE (10:11)
[2018-10-03] MEDS ORDERED: SUCCINYLCHOLINE CHLORIDE 200 MG/10 ML VIAL MC ONE (10:15)
--- NOTE | 2018-10-03 10:15 | NUR ---
Dr. Chapa here to see pt. Full report given. New orders received and carried out.
[2018-10-03] MEDS ORDERED: IV NORMAL SALINE 500 ML IV ONE (11:30)
--- NOTE | 2018-10-03 11:45 | NUR ---
Dr. Beltrán here to see pt. Full report given. New orders received.
--- NOTE | 2018-10-03 13:40 | NUR ---
CLINICAL PHARMACY NOTE:VANCOMYCIN DOSING S: To continue vancomycin dosing on 63 y/o male patient for sepsis O; Temp 98.5f BUN 62 Scr 1.8 WBC 38.1 ht 165 cm wt 76 kg Vancomycin random on 10/02 at 0600: 15.1 Vancomycin random on 10/02 at 0600: 16.9 Plan Since renal function continues to be unstable, will continue to dose by fall-off random level. Per random level, dosed another 1gm vanco today at 0900. Next random level due tomorrow with am labs. Will check in am and re-dose as appropriate. Will follow
[2018-10-03] MEDS: FLUCONAZOLE 200 MG/NS 100ML IV 100 MG in PREMIXED 1 EACH IV SCH (14:17)
[2018-10-03] MEDS: MORPHINE SULFATE 2 MG/1 ML DISP.SYRIN IV PRN ×2 (16:23→21:33)
--- NOTE | 2018-10-03 19:40 | NUR ---
Received pt nonverbal, unable to follow commands. Extremities flaccid. Trach to vent with settings: AC 12, TV 500, FIO2 30%, PEEP 5. O2 sats up to 100%. NGT on continuous low suction. BRENDAN drains on right and left lower abdomen with small red drainage. F/c in place. Full assessment completed. VSS, afebrile. Wound dressings intact. Pt turned and repositioned. Aspiration and seizure precautions initiated. See nursing flowsheet for data. Addendum: 10/03/18 at 2105 by DIMA LEAL RN Amended: Links added.
--- NOTE | 2018-10-03 20:05 | NUR ---
Pt rec'd on Muñoz settings AC 12, VT 500, PEEP +5 and FIO2-30%. No resp. distress noted. Shiley 6 is patent and secure; B/U Shiley 6 and BVM are at bedside. Pt to be monitored throughout the shift and PRN SX. Muñoz alarm parameters have been checked and remain audible.
[2018-10-04] VITALS (23 sets, daily range): BP systolic 104–124; BP diastolic 49–71
[2018-10-04] MEDS: IPRATROPIUM BROMIDE 0.5 MG/2.5 ML NEBU NEB SCH ×5 (00:31→19:27)
[2018-10-04] MEDS: MEROPENEM 1 G in IV NORMAL SALINE 100 ML IV SCH ×2 (03:13→16:38)
[2018-10-04] MEDS: POLYVINYL ALCOHOL OPHT DROPS 15 ML BOTTLE EACHEYE SCH ×3 (04:44→21:02)
[2018-10-04] MEDS: BLOOD SUGAR DIAGNOSTIC 1 EACH STRIP VI SCH ×4 (05:03→23:43)
[2018-10-04] MEDS: INSULIN REGULAR, HUMAN 300 UNIT/3 ML VIAL SQ PRN ×2 (05:04→11:46)
[2018-10-04 05:11] LABS: BASOPHILS % (AUTO) 0.1 % (0.0-2.0); EOSINOPHILS # (AUTO) 0.2 K/uL (0.0-0.7); EOSINOPHILS % (AUTO) 1.1 % (0.0-7.0); HEMATOCRIT 27.9 % (36.7-47.1); HEMOGLOBIN 8.8 g/dL (12.5-16.3); LYMPHOCYTES # (AUTO) 0.8 K/uL (20.0-40.0); LYMPHOCYTES % (AUTO) 4.8 % (20.5-51.5); MEAN CORPUSCULAR HGB CONC 32 g/dL (32.5-36.3); MEAN CORPUSCULAR VOLUME 82.2 fL (73.0-96.2); MONOCYTES # (AUTO) 0.9 K/uL (2.0-10.0); MONOCYTES % (AUTO) 5.7 % (0.0-11.0); NEUTROPHILS # (AUTO) 13.9 K/uL (1.8-8.9); NEUTROPHILS % (AUTO) 88.3 % (38.5-71.5); PLATELET COUNT (AUTO) 259 K/uL (152-348); RED BLOOD CELL COUNT(AUTO) 3.39 MIL/uL (4.06-5.63); WHITE BLOOD COUNT (AUTO) 15.8 K/uL (3.6-10.2)
[2018-10-04 05:12] LABS: CREATININE 1.1 mg/dL (0.6-1.3); MAGNESIUM 1.9 mg/dL (1.8-2.4); PHOSPHOROUS 3.1 mg/dL (2.5-4.9); VANCOMYCIN,RANDOM 18.5 ug/mL (18.0-26.0)
--- NOTE | 2018-10-04 05:15 | NUR ---
AM care rendered. Oral care done, pt shaved. Bed bath given. Wound care on abdominal incision site and sacral area provided as ordered. Central line dressing changed. Pt kept clean and dry, turned and repositioned. Contact and aspiration precautions observed. HOB kept elevated at all times. Continue to monitor.
[2018-10-04 05:25] LABS: POTASSIUM 2.4 mmol/L (3.5-5.1)
[2018-10-04] MEDS: MORPHINE SULFATE 2 MG/1 ML DISP.SYRIN IV PRN ×2 (05:47→17:53)
[2018-10-04 05:51] LABS: BAND % (MANUAL) 1 % (0-10); EOSINOPHILS % (MANUAL) 2 % (0-8); LYMPHOCYTES % (MANUAL) 7 % (20-40); METAMYELOCYTES % 1 % (0-1); MONOCYTES % (MANUAL) 3 % (2-10); MYELOCYTES % 1 % (0-0); NEUTROPHILS % (MANUAL) 84 % (42-75); PROMYELOCYTES % 1 %
[2018-10-04] MEDS: POTASSIUM CHLORIDE 50 ML IV SCH ×6 (06:18→11:12)
[2018-10-04] MEDS: IV D5/ 0.9% NACL 1,000 ML IV PRN ×2 (07:21→21:09)
[2018-10-04] MEDS: PANTOPRAZOLE SODIUM 40 MG VIAL IV SCH ×2 (07:33→21:01)
[2018-10-04] MEDS: THERAHONEY GEL 1.5 OZ TUBE TOP SCH ×2 (07:33→21:02)
[2018-10-04] MEDS: SODIUM HYPOCHLORITE 0.125% 473 ML BOTTLE TP SCH ×3 (07:34→21:06)
[2018-10-04] MEDS: NEOMY/BACITRAC/POLYMI OINT 28.35 GM TUBE TOP SCH (07:34)
[2018-10-04] MEDS: METRONIDAZOLE 500 MG/NS 100ML 500 MG in PREMIXED 1 EACH IV SCH ×3 (07:37→23:01)
[2018-10-04] MEDS ORDERED: VANCOMYCIN IV 1 G in PREMIXED 0 EACH IV ONE (08:00)
[2018-10-04] MEDS: LEVETIRACETAM IV 1,500 MG in IV DEXTROSE 5% 100 ML IV SCH ×2 (08:14→21:01)
--- NOTE | 2018-10-04 08:52 | NUR ---
ANGIE Varma here to see pt. Full report given. New orders received.
--- NOTE | 2018-10-04 08:52 | NUR ---
Dr. Ortega here to see pt. Full report given. No new orders received.
[2018-10-04 08:53] LABS: ABG BASE EXCESS -4.5 mmol/L; ABG HCO3 19.3 mmol/L; ABG PCO2 30.7 mmHg (35.0-45.0); ABG PH 7.417 (7.350-7.450); ABG PO2 115.6 mmHg (75.0-100.0); ABG SITE RIGHT RADIAL; ABG TOTAL HEMOGLOBIN 9.2 G/dL (13.5-18.0); COHb 1.2 % (0.5-1.5); MetHb 0.4 % (0.0-1.5); O2Hb 96.9 % (94.0-97.0); VENT MODE VENT - A/C; VT, ABG 500 mL
--- NOTE | 2018-10-04 11:10 | NUR ---
Dr. Beltrán here to see pt. Full report given. New orders received.
--- NOTE | 2018-10-04 13:18 | NUR ---
CLINICAL PHARMACY NOTE:VANCOMYCIN DOSING S: To continue vancomycin dosing on 63 y/o male patient for sepsis O; Temp 98.3f BUN 108 Scr 2.4 WBC 15.8 ht 165 cm wt 76 kg Vancomycin random on 10/02 at 0600: 15.1 Vancomycin random on 10/02 at 0600: 16.9 Vancomycin random on 10/02 at 0600: 18.5 Plan Since renal function continues to be unstable, will continue to dose by fall-off random level. Per random level, dosed another 1gm vanco IV today at 0800. Next random level due tomorrow with am labs. Will check in am and re-dose as appropriate. Will follow
--- NOTE | 2018-10-04 13:30 | NUR ---
Brought pt down with radiologist and RT for CT head. VSS and nad upon leaving the unit.
[2018-10-04] MEDS: FLUCONAZOLE 200 MG/NS 100ML IV 100 MG in PREMIXED 1 EACH IV SCH (13:52)
--- NOTE | 2018-10-04 13:55 | NUR ---
Pt returned from CT head. VSS and nad noted upon returning to the unit.
--- NOTE | 2018-10-04 16:00 | NUR ---
Dr. Pace (Neuro) here to see pt. Full report given. No new orders received.
--- NOTE | 2018-10-04 16:26 | NUR ---
RECEIVED STABLE ON CURRENT VENTILATOR SETTINGS. MORNING ORAL CARE GIVEN. SUCTIONED ORDERED. IN LINE TREATMENT GIVEN WITHOUT COMPLICATIONS. ABG DONE WITH RESULT CALLED TO MARKUS. ASSISTED DURING TRANSPORT TO CT SCAN AND BACK TO HIS ROOM.
--- NOTE | 2018-10-04 16:49 | NUR ---
windshield technician here to see pt for EEG procedure.
--- NOTE | 2018-10-04 19:30 | NUR ---
Received patient in bed and received bedside report from day shift nurse. Patient tolerating vent settings and in no respiratory distress. Assess patients surgical site and has no signs of infections/complications. Patient has bilateral j-villegas drainages with addition of left g-tube draining by gravity-will monitor output. patient with nasopharyngeal to low suction. CVP monitoring zeroed and with value of 8 initially. Patient has cordova catheter with chaparro/yellow with sediments. Right IJ central line, triple lumen that is intact and patent. Antibiotic of Merrem running and d5NS on hold during infusion of IVPB. Site with no signs of infection.
[2018-10-04] MEDS: SODIUM HYPOCHLORITE 0.125% 473 ML BOTTLE TP PRN (21:04)
[2018-10-05] VITALS (23 sets, daily range): BP systolic 97–140; BP diastolic 56–71
[2018-10-05] MEDS: IPRATROPIUM BROMIDE 0.5 MG/2.5 ML NEBU NEB SCH ×4 (01:43→19:44)
[2018-10-05] MEDS: MEROPENEM 1 G in IV NORMAL SALINE 100 ML IV SCH ×2 (03:13→15:05)
[2018-10-05] MEDS: MORPHINE SULFATE 2 MG/1 ML DISP.SYRIN IV PRN (03:15)
--- NOTE | 2018-10-05 03:58 | NUR ---
PT ON CONT TY VENT WITH SHILEY # [address] WITH SAME CURRENT VENT SETTINGS, PT DOES ASSIST AT TIMES, FAIR COUGH EFFORT, SUCTIONED LIGHT PALE YELL TINGE SECRETIONS, Q6 NEB INLINE TOLL WELL, ALL VENT ALARMS GOOD, NO VENT CHANGES MADE, CHANGE HME AND GUZMAN , SAT 100% AMBU BAG AT BEDSIDE, PT STABLE. Emily STRAUSSP Addendum: 10/05/18 at 0405 by PAIGE HOWELL RT Amended: Links added.
[2018-10-05 05:15] LABS: BASOPHILS % (AUTO) 0.1 % (0.0-2.0); EOSINOPHILS # (AUTO) 0.2 K/uL (0.0-0.7); EOSINOPHILS % (AUTO) 1.2 % (0.0-7.0); HEMOGLOBIN 8.1 g/dL (12.5-16.3); LYMPHOCYTES # (AUTO) 0.5 K/uL (20.0-40.0); LYMPHOCYTES % (AUTO) 4.1 % (20.5-51.5); MEAN CORPUSCULAR HGB CONC 31 g/dL (32.5-36.3); MEAN CORPUSCULAR VOLUME 83.1 fL (73.0-96.2); MONOCYTES # (AUTO) 0.6 K/uL (2.0-10.0); MONOCYTES % (AUTO) 4.3 % (0.0-11.0); NEUTROPHILS # (AUTO) 11.8 K/uL (1.8-8.9); NEUTROPHILS % (AUTO) 90.3 % (38.5-71.5); PLATELET COUNT (AUTO) 248 K/uL (152-348); RED BLOOD CELL COUNT(AUTO) 3.13 MIL/uL (4.06-5.63); WHITE BLOOD COUNT (AUTO) 13.1 K/uL (3.6-10.2)
[2018-10-05 05:34] LABS: BILIRUBIN,TOTAL 0.3 mg/dL (0.2-1.0); CREATININE 0.7 mg/dL (0.6-1.3); MAGNESIUM 1.7 mg/dL (1.8-2.4); PHOSPHOROUS 2.6 mg/dL (2.5-4.9); TOTAL PROTEIN, SERUM 4.2 g/dL (6.4-8.2); VANCOMYCIN,RANDOM 15.8 ug/mL (18.0-26.0)
[2018-10-05 05:35] LABS: POTASSIUM 2.2 mmol/L (3.5-5.1)
[2018-10-05] MEDS: POLYVINYL ALCOHOL OPHT DROPS 15 ML BOTTLE EACHEYE SCH ×3 (05:51→21:21)
[2018-10-05] MEDS: BLOOD SUGAR DIAGNOSTIC 1 EACH STRIP VI SCH ×4 (05:51→23:18)
--- NOTE | 2018-10-05 05:54 | NUR ---
called [facility] medical group to get in contact with on-call physician for patients critical lab values. waiting for call-back.
--- NOTE | 2018-10-05 06:31 | NUR ---
end of shift report: Patient in no respiratory distress and tolerating ventilator settings. Trach care, wound care, and bathing care provided during the shift. Patient turned q2hrs. total drainage in j-villegas 85cc. no s/s of bleeding/infection at incision site. Patient total urinary output is 1300. Received critical lab values this morning and called [facility]. still waiting for return call for orders.
--- NOTE | 2018-10-05 06:40 | NUR ---
2nd attempt to reach prevention coordinator physician for critical lab values. Called [facility] group to page and now waiting for call-back for orders.
--- NOTE | 2018-10-05 06:45 | NUR ---
received call back from jesus herrera NP for critical values. orders have been given.
[2018-10-05] MEDS ORDERED: POTASSIUM CHLORIDE 50 ML IV SCH ×3 (07:00→17:00)
[2018-10-05] MEDS: POTASSIUM CHLORIDE 50 ML IV SCH ×9 (07:08→15:03)
[2018-10-05] MEDS: SODIUM HYPOCHLORITE 0.125% 473 ML BOTTLE TP SCH ×3 (09:00→20:18)
[2018-10-05] MEDS: NEOMY/BACITRAC/POLYMI OINT 28.35 GM TUBE TOP SCH (09:00)
[2018-10-05] MEDS ORDERED: VANCOMYCIN IV 1 G in PREMIXED 0 EACH IV ONE (09:00)
[2018-10-05] MEDS: METRONIDAZOLE 500 MG/NS 100ML 500 MG in PREMIXED 1 EACH IV SCH ×3 (09:03→23:12)
[2018-10-05] MEDS: PANTOPRAZOLE SODIUM 40 MG VIAL IV SCH ×2 (09:03→20:07)
[2018-10-05] MEDS: LEVETIRACETAM IV 1,500 MG in IV DEXTROSE 5% 100 ML IV SCH ×2 (09:07→20:13)
[2018-10-05] MEDS: SODIUM HYPOCHLORITE 0.125% 473 ML BOTTLE TP PRN ×3 (09:19→11:11)
[2018-10-05] MEDS: THERAHONEY GEL 1.5 OZ TUBE TOP SCH ×2 (09:19→20:17)
[2018-10-05] MEDS: MAGNESIUM SULFATE/D5W 100 ML IV SCH ×2 (09:30→10:59)
[2018-10-05] MEDS ORDERED: TPN/PPN PER PHARMACY IV PRN (09:30)
--- NOTE | 2018-10-05 10:00 | NUR ---
CLINICAL PHARMACY NOTE:VANCOMYCIN DOSING S: To continue vancomycin dosing on 63 y/o male patient for sepsis O; Temp 97.6f BUN 27 Scr 0.7 WBC 13.1 ht 165 cm wt 76 kg Vancomycin random on 10/02 at 0600: 15.1 Vancomycin random on 10/02 at 0600: 16.9 Vancomycin random on 10/02 at 0600: 18.5 Vancomycin random on 10/02 at 0600: 15.8 Plan Per random level, dosed another 1gm vanco IV today at 0900. Next random level due tomorrow with am labs. Will check in am and re-dose as appropriate. If srcr remains stable, will consider routine dosing. Will follow
--- NOTE | 2018-10-05 11:44 | NUR ---
Addendum: TPN to run 24 hours continuous infusion. Lipids 20% 250ml bag daily. Total daily kcals 1479, 82 gms protein. This meets 100% of his lower end kcal needs and 100% of his estimated protein needs. Addendum: 10/05/18 at [address] Amended: Links added.
--- NOTE | 2018-10-05 12:03 | NUR ---
Clinical Pharmacy Note: TPN per Pharmacy Subjective: Pt from subacute unit, transferred to CCU d/t perforated duodenal and gastric ulcer. S/P corrective surgery. PT has been NPO for 4 days and MD ordered for TPN as expected to be without GT > 7 days Manager Portable recommendation: Plan to start TPN. Patient with central line. To meet patient's estimated need suggest: infuse @ 80ml/hour (final concentration) D10, AA 4.25% and 20% lipids 250 ml/24 hr( will start Lipids post TG result with tomorrow's AM lab). This would provide 1479 total kcals, ~ 82 gms protein. Adjust nutrition as tolerated and anticipated duration of infusion. Rx discussed with dietary. Objective: Labs: Na 139, K 2.2, Cl 111, CO2 22, BUN 27, Scr 0.7, Glucose 162, Ca 8.1 (corrected: 10.34) Alb 1.2, Mg 1.7, Phos 2.6, WBC 13.1,temp 98.6, platelet 248 Assessment/Plan: 1) Will start TPN formula (bags #1+2, #2 projected start ~03:30 10/06) D10%+ AA4.5% at rate of 30ml/hr today, increasing every hr by 10ml/hr with goal rate of 80 ml/hr. RN endorsed. Will add 60meq/L Na acetate, 3 mmol/L Na phos + MVI and trace elements. Next labs ordered for tomorrow am. 2) per MD's order pt received 120 meq of KCL for low potassium. 3) per hospital's protocol pt received 2 gm of Magnesium bolus x 1. 3) Pt already on accuchecks q6hr with mild sliding scale. Will monitor BS 4) D/c'd IVF fluids as replaced with TPN Addendum: 10/05/18 at 1345 by TEA HERBERT AMENDMENT: BAG # 1 & 2 CONTAIN 3 MMOL= 1 ML OF POTASSIUM PHOS NOT SODIUM PHOS
[2018-10-05] MEDS: FLUCONAZOLE 200 MG/NS 100ML IV 100 MG in PREMIXED 1 EACH IV SCH (13:16)
[2018-10-05] MEDS ORDERED: [UNRECOGNIZED DRUG - OTHER] IV SCH ×6 (14:00)
[2018-10-05] MEDS ORDERED: SODIUM ACETATE IV SCH ×6 (14:00)
[2018-10-05] MEDS ORDERED: POTASSIUM PHOSPHATE MM IV SCH ×6 (14:00)
--- NOTE | 2018-10-05 16:09 | NUR ---
looked stable and seemed to tolerate the settings well. in line treatment given and tolerated well. suctioned as needed. oral care given. no new order received.
[2018-10-05 17:12] LABS: CREATININE 0.7 mg/dL (0.6-1.3); POTASSIUM 3.5 mmol/L (3.5-5.1)
--- NOTE | 2018-10-05 18:24 | NUR ---
AND SON CAME TO VISIT PT. EARLIER. THEY WISH TO TAKE BLOOD PRESSURE ONLY ON LEGS. THEY ASKED FOR A SIGN TO BE PLACED OVERHEAD TO CONTINUE TAKING B/P ON LEGS.
--- NOTE | 2018-10-05 18:26 | NUR ---
PHARMACY ASKED TO BEGIN T.P.N. AT 30 / CC / HOUR AND TO INCREASE BY 10/CC EVERY HOUR. FOR A GOAL RATE OF 80 / CC / HOUR. THIS WILL BE REACHED AT 1900 P.M.
[2018-10-05] MEDS: INSULIN REGULAR, HUMAN 300 UNIT/3 ML VIAL SQ PRN ×2 (19:21→23:19)
--- NOTE | 2018-10-05 19:30 | NUR ---
Received pt in bed, on contact isolation for VRE and of the wound. Pt eyes open, nonverbal, unable to follow simple commands. Pt withdraws to deep pain. Upper and lower extremities flaccid. Trach to vent with settings: AC 12, TV 500, PEEP 5, FiO2 30%. O2 sat 100%. RIGHT IJ PICC line triple lumen running TPN at 60 cc/hr. Antibiotic therapy noted. Continuous CVP, zeroed and recalibrated. NG tube on low suction with green, brown drainage color. BRENDAN drains on left and right lower abdomen, noted red drainage. Assessment completed. No acute distress noted. Skin check done, wound dressings clean and intact. Pt turned and reposition. Aspiration precautions and safety measures implemented. Addendum: 10/05/18 at 2056 by DIMA LEAL RN Amended: Links added.
[2018-10-05] MEDS: IV NORMAL SALINE 250 ML IV PRN (20:10)
[2018-10-06] VITALS (17 sets, daily range): BP systolic 124–152; BP diastolic 65–94
[2018-10-06] MEDS: IPRATROPIUM BROMIDE 0.5 MG/2.5 ML NEBU NEB SCH ×4 (01:14→19:01)
[2018-10-06] MEDS: MEROPENEM 1 G in IV NORMAL SALINE 100 ML IV SCH ×2 (03:04→16:23)
[2018-10-06] MEDS ORDERED: SODIUM ACETATE IV SCH ×4 (03:30)
[2018-10-06] MEDS ORDERED: [UNRECOGNIZED DRUG - OTHER] IV SCH ×4 (03:30)
[2018-10-06] MEDS ORDERED: AMINO ACID IV SCH ×4 (03:30)
[2018-10-06] MEDS ORDERED: POTASSIUM PHOSPHATE MM IV SCH ×4 (03:30)
--- NOTE | 2018-10-06 04:08 | NUR ---
PT ON CONT TY VENT WITH SHILEY # [address] AND SECURED, WITH SAME CURRENT VENT SETTINGS, PT DOES ASSIST AT TIMES, FAIR COUGH EFFORT, SUCTIONED LIGHT PALE YELL TINGE SECRETIONS, TRACH CARE DONE, CHANGE INNER CANNULA, HME/ GUZMAN, ALL VENT ALARMS GOOD, NEB INLINE WITH ATROVENT TOLL WELL, NO VENT CHANGES MADE, SAT 100%. Emily STRAUSSP Addendum: 10/06/18 at 0410 by PAIGE HOWELL RT Amended: Links added.
[2018-10-06] MEDS: MORPHINE SULFATE 2 MG/1 ML DISP.SYRIN IV PRN ×2 (04:23→23:24)
[2018-10-06 04:38] LABS: BASOPHILS % (AUTO) 0.3 % (0.0-2.0); EOSINOPHILS # (AUTO) 0.1 K/uL (0.0-0.7); EOSINOPHILS % (AUTO) 0.9 % (0.0-7.0); HEMATOCRIT 27.5 % (36.7-47.1); HEMOGLOBIN 8.6 g/dL (12.5-16.3); LYMPHOCYTES # (AUTO) 0.9 K/uL (20.0-40.0); LYMPHOCYTES % (AUTO) 6.3 % (20.5-51.5); MEAN CORPUSCULAR HEMOGLOBIN 25.9 uug (23.8-33.4); MEAN CORPUSCULAR HGB CONC 31 g/dL (32.5-36.3); MEAN CORPUSCULAR VOLUME 82.9 fL (73.0-96.2); MONOCYTES # (AUTO) 0.5 K/uL (2.0-10.0); MONOCYTES % (AUTO) 3.4 % (0.0-11.0); NEUTROPHILS # (AUTO) 13.1 K/uL (1.8-8.9); NEUTROPHILS % (AUTO) 89.1 % (38.5-71.5); PLATELET COUNT (AUTO) 314 K/uL (152-348); RED BLOOD CELL COUNT(AUTO) 3.32 MIL/uL (4.06-5.63); WHITE BLOOD COUNT (AUTO) 14.6 K/uL (3.6-10.2)
[2018-10-06 04:55] LABS: CARBON DIOXIDE 21 mmol/L (21-32); CHLORIDE 116 mmol/L (98-107); CREATININE 0.6 mg/dL (0.6-1.3); GLUCOSE 168 mg/dL (74-106); MAGNESIUM 1.8 mg/dL (1.8-2.4); PHOSPHOROUS 2.4 mg/dL (2.5-4.9); POTASSIUM 2.9 mmol/L (3.5-5.1); UREA NITROGEN, BLOOD 18 mg/dL (7-18); VANCOMYCIN,RANDOM 13.3 ug/mL (18.0-26.0)
[2018-10-06] MEDS: POLYVINYL ALCOHOL OPHT DROPS 15 ML BOTTLE EACHEYE SCH ×3 (05:21→22:05)
[2018-10-06] MEDS: BLOOD SUGAR DIAGNOSTIC 1 EACH STRIP VI SCH ×4 (05:23→23:25)
[2018-10-06] MEDS: INSULIN REGULAR, HUMAN 300 UNIT/3 ML VIAL SQ PRN ×2 (05:24→23:29)
--- NOTE | 2018-10-06 05:30 | NUR ---
Am care provided. Trach and oral care done. Wound care as ordered, kept pt clean and dry. Pt turned and repositioned. VSS, afebrile. No acute distress noted. Will continue to monitor.
[2018-10-06] MEDS: POTASSIUM CHLORIDE 50 ML IV SCH ×12 (06:43→17:25)
--- NOTE | 2018-10-06 07:30 | NUR ---
Report received.Pt remains unresponsive.No s/s of pain,discomfort noted.Respiration even,unlabored.ST on monitor.NGT connected to low Is.Abdomen remains distended.GT connected to gravity bag.Will continue to monitor.
[2018-10-06] MEDS: METRONIDAZOLE 500 MG/NS 100ML 500 MG in PREMIXED 1 EACH IV SCH ×2 (08:05→15:51)
[2018-10-06] MEDS: LEVETIRACETAM IV 1,500 MG in IV DEXTROSE 5% 100 ML IV SCH ×2 (08:35→21:12)
[2018-10-06] MEDS: PANTOPRAZOLE SODIUM 40 MG VIAL IV SCH ×2 (08:47→21:11)
[2018-10-06] MEDS: VANCOMYCIN IV 1,250 MG in IV DEXTROSE 5% 500 ML IV SCH ×2 (08:47→20:09)
--- NOTE | 2018-10-06 08:50 | NUR ---
Seen,examined by Jeffrey.Updated on pt status.
--- NOTE | 2018-10-06 09:00 | NUR ---
Seen,examined by cardiology.Updated on pt status.
[2018-10-06] MEDS: SODIUM HYPOCHLORITE 0.125% 473 ML BOTTLE TP SCH ×3 (09:10→21:10)
[2018-10-06] MEDS: THERAHONEY GEL 1.5 OZ TUBE TOP SCH ×2 (09:10→21:03)
[2018-10-06] MEDS: NEOMY/BACITRAC/POLYMI OINT 28.35 GM TUBE TOP SCH (09:11)
[2018-10-06] MEDS ORDERED: POTASSIUM CHLORIDE 50 ML IV SCH (09:15)
--- NOTE | 2018-10-06 09:37 | NUR ---
Called pt daughter.Left message regarding consent for Picc line placement.
--- NOTE | 2018-10-06 09:48 | NUR ---
Pt daughter called.Updated on pt status.Consent received for picc line placement.
--- NOTE | 2018-10-06 10:19 | NUR ---
Seen,examined by .
[2018-10-06 10:33] LABS: CHOLESTEROL 73 mg/dL (<200); HDL CHOLESTEROL 25 mg/dL (40-60); TRIGLYCERIDES 80 MG/DL (30-150)
[2018-10-06] MEDS: POTASSIUM PHOSPHATE MM 7.5 MMOL in IV DEXTROSE 5% 100 ML IV SCH ×2 (12:36→15:50)
--- NOTE | 2018-10-06 13:00 | NUR ---
Picc line placement in progress at bedside.
[2018-10-06] MEDS: FLUCONAZOLE 200 MG/NS 100ML IV 100 MG in PREMIXED 1 EACH IV SCH (13:54)
[2018-10-06] MEDS: IV FAT EMULSIONS 20% 250 ML IV SCH (13:57)
--- NOTE | 2018-10-06 13:57 | NUR ---
CLINICAL PHARMACY NOTE:VANCOMYCIN DOSING S: To continue vancomycin dosing on 63 y/o male patient for sepsis O; Temp 98.7f BUN 18 Scr 0.6 WBC 14.6 ht 165 cm wt 76 kg trough pending tomorrow 1430 Plan As renal function now stabilized, will start vanco regimen of 1250mg q10h for estimated trough of 15.14, first dose today at 0900. Trough before 4th scheduled dose ordered and due tomorrow at 1430. Will check trough when available and adjust as needed. Will follow
[2018-10-06] MEDS ORDERED: [UNRECOGNIZED DRUG - OTHER] IV PRN ×6 (14:00)
[2018-10-06] MEDS ORDERED: MAGNESIUM SULFATE IV PRN ×6 (14:00)
[2018-10-06] MEDS ORDERED: SODIUM ACETATE IV PRN ×6 (14:00)
[2018-10-06] MEDS ORDERED: MVI ADULT IV PRN ×6 (14:00)
--- NOTE | 2018-10-06 14:27 | NUR ---
Clinical Pharmacy Note: TPN per Pharmacy Subjective: Pt from subacute unit, transferred to CCU d/t perforated duodenal and gastric ulcer. S/P corrective surgery. PT has been NPO for 4 days and MD ordered for TPN as expected to be without GT > 7 days Train System Operator recommendation: Plan to start TPN. Patient with central line. To meet patient's estimated need suggest: infuse @ 80ml/hour (final concentration) D10, AA 4.25% and 20% lipids 250 ml/24 hr( will start Lipids post TG result with tomorrow's AM lab). This would provide 1479 total kcals, ~ 82 gms protein. Adjust nutrition as tolerated and anticipated duration of infusion. Rx discussed with dietary. Objective: Labs: Na 148, K 2.9, Cl 116, CO2 21, BUN 30, Scr 0.6, Glucose 168, Ca 8.3 (corrected: 10.5) Alb 1.2 (10/05), Mg 1.8, Phos 2.4, WBC 14.6,temp 98.3, platelet 314 Assessment/Plan: 1) Will continue TPN formula (bags #3+4, #3 started @1400, #4 projected start 10/07 @0230) D10%+ AA4.5% at rate of 80ml/hr. Bag #3 with addition of 30meq/L Na acetate, 1gm Mg, and MVI and trace elements. With bag #3 will be intralipids 20% 250ml at 11ml/hr (duration ~23hrs). Bag #4 with addition of 30meq/L Na Acetate, 1gm Mg, and 6mmol Kphos. 2) Per MD orders, pt bolused today with followinmeq KCl + 40meq KCl + 15mmol Kphos (~122meq K total). Pt was bolused with 120meq total previous day on 10/05. Pt hypokalemic, but due to boluses, will only add 6mmol Kphos in addition to bag #4 for now. Will follow next labs in am to adjust/add if needed. 3) Pt already on accuchecks q6hr with mild sliding scale. Will monitor BS 4) D/c'd IVF fluids as replaced with TPN
--- NOTE | 2018-10-06 14:39 | NUR ---
Pt at bedside,updated on pt condition.
--- NOTE | 2018-10-06 19:03 | NUR ---
Received pt tachypneic and tachycardic, on Muñoz ventilator with the following settings of AC-12, Vt-500, PEEP+5, FIO2-30%, trached with Shiley#6 DCT trach, which is in the place and secure. Airway care done, pt responded to physical stimuli. In-line HHN tx with 0.5mg Atrovent given, pt tolerated well. Cont. pulse ox on. HME changed. PPE used. Resus. bag and back up trach at bedside. Vent and alarms checked and reset.
--- NOTE | 2018-10-06 19:30 | NUR ---
Report received. Patient on contact isolation for VRE in wound. With trache to vent, settings as follows: Ac=12, BK=311jc, PEEP=5 and FIO2=30%. Sat above 96%. Eyes open, but doesn't track. Extremities flaccid. With marked generalized edema. Skin taut. Assessment completed; see flow sheet for details. Addendum: 10/07/18 at 6 by KEV BEAN RN Amended: Links added. Addendum: 10/07/18 at 327 by KEV BEAN RN Amended: Links added.
--- NOTE | 2018-10-06 20:00 | NUR ---
With TPN and Lipids infusing to WILMA PICC line. All ports flushing well. Dressing dry and intact. NGT to Jessica caal with large amounts of green drainage. Addendum: 10/07/18 at 0328 by KEV BEAN RN Amended: Links added.
[2018-10-06] MEDS: ACETAMINOPHEN 650 MG SUPP.RECT RC PRN (20:19)
[2018-10-06] MEDS: SODIUM HYPOCHLORITE 0.125% 473 ML BOTTLE TP PRN (21:03)
[2018-10-06] MEDS: Z GUARD REMEDY PASTE 57 GM TUBE TOP PRN (21:03)
[2018-10-07] VITALS (7 sets, daily range): BP systolic 125–197; BP diastolic 50–90
[2018-10-07] MEDS: IPRATROPIUM BROMIDE 0.5 MG/2.5 ML NEBU NEB SCH ×4 (01:00→19:20)
[2018-10-07] MEDS: IV NORMAL SALINE 250 ML IV PRN (02:00)
[2018-10-07] MEDS ORDERED: SODIUM ACETATE IV SCH ×5 (02:30)
[2018-10-07] MEDS ORDERED: MAGNESIUM SULFATE IV SCH ×5 (02:30)
[2018-10-07] MEDS ORDERED: POTASSIUM PHOSPHATE MM IV SCH ×5 (02:30)
[2018-10-07] MEDS ORDERED: [UNRECOGNIZED DRUG - OTHER] IV SCH ×5 (02:30)
[2018-10-07] MEDS: MEROPENEM 1 G in IV NORMAL SALINE 100 ML IV SCH ×2 (04:10→16:06)
[2018-10-07] MEDS: VANCOMYCIN IV 1,250 MG in IV DEXTROSE 5% 500 ML IV SCH ×2 (05:37→15:00)
[2018-10-07] MEDS: POLYVINYL ALCOHOL OPHT DROPS 15 ML BOTTLE EACHEYE SCH ×3 (05:38→23:01)
--- NOTE | 2018-10-07 06:00 | NUR ---
Condition unchanged. Medicated with Morphine 2mg IV x 1 during the shift. Wound care treatment done.
[2018-10-07] MEDS: INSULIN REGULAR, HUMAN 300 UNIT/3 ML VIAL SQ PRN ×4 (06:42→23:58)
[2018-10-07] MEDS: BLOOD SUGAR DIAGNOSTIC 1 EACH STRIP VI SCH ×4 (06:42→23:46)
[2018-10-07 06:53] LABS: BASOPHILS % (AUTO) 0.4 % (0.0-2.0); EOSINOPHILS # (AUTO) 0.4 K/uL (0.0-0.7); EOSINOPHILS % (AUTO) 3.3 % (0.0-7.0); HEMATOCRIT 25.3 % (36.7-47.1); HEMOGLOBIN 8.1 g/dL (12.5-16.3); LYMPHOCYTES % (AUTO) 7.3 % (20.5-51.5); MEAN CORPUSCULAR HEMOGLOBIN 26.3 uug (23.8-33.4); MEAN CORPUSCULAR HGB CONC 32 g/dL (32.5-36.3); MEAN CORPUSCULAR VOLUME 82.7 fL (73.0-96.2); MONOCYTES # (AUTO) 0.5 K/uL (2.0-10.0); MONOCYTES % (AUTO) 3.4 % (0.0-11.0); NEUTROPHILS # (AUTO) 11.3 K/uL (1.8-8.9); NEUTROPHILS % (AUTO) 85.6 % (38.5-71.5); PLATELET COUNT (AUTO) 297 K/uL (152-348); RED BLOOD CELL COUNT(AUTO) 3.06 MIL/uL (4.06-5.63); WHITE BLOOD COUNT (AUTO) 13.2 K/uL (3.6-10.2)
[2018-10-07 07:01] LABS: CARBON DIOXIDE 23 mmol/L (21-32); CHLORIDE 108 mmol/L (98-107); CREATININE 0.5 mg/dL (0.6-1.3); GLUCOSE 192 mg/dL (74-106); MAGNESIUM 1.5 mg/dL (1.8-2.4); PHOSPHOROUS 2.5 mg/dL (2.5-4.9); POTASSIUM 3.1 mmol/L (3.5-5.1); UREA NITROGEN, BLOOD 14 mg/dL (7-18)
--- NOTE | 2018-10-07 08:00 | NUR ---
RECIEVED PT LYING IN BED, EYES ARE OPEN BUT PT IS NON VERBAL, ALL EXTREMETIES ARE FLACCID. SKIN DRY AND WARM TO TOUCH.AFEBRILE 97.4F. HR ST, RATE 119. PT HAS A GENERALIZED PITTING EDEMA +3-4. NO APPARENT RESPIRATORY DISTRESS. PT ON VENT WITH A SETTING OF AC-12. VT-500, FIO2-30%, PEEP-5. LUNGS HAS SCATTERED RALES AND RHONCIS. TRACHE SHILEY #6 INTACT. SUCTION SMALL AMOUNT OF WHITISH SECRETIONS.
[2018-10-07] MEDS: LEVETIRACETAM IV 1,500 MG in IV DEXTROSE 5% 100 ML IV SCH ×2 (08:14→20:24)
[2018-10-07] MEDS: PANTOPRAZOLE SODIUM 40 MG VIAL IV SCH ×2 (08:17→20:24)
[2018-10-07] MEDS: THERAHONEY GEL 1.5 OZ TUBE TOP SCH ×2 (08:19→20:41)
[2018-10-07] MEDS: SODIUM HYPOCHLORITE 0.125% 473 ML BOTTLE TP SCH ×4 (08:20→20:42)
--- NOTE | 2018-10-07 08:30 | NUR ---
NPO. PT IS ON TPN RUNNING AT 80ML/HR WITH LIPID 10% INFUSING AT 11ML/HR VIA THE PICC LINE ON HIS RIGHT UPPER ARM. ABDOMENAL DRESSING IS CLEAN DRY AND INTACT. RIGHT AND LEFT BRENDAN DRAINS IN PLACE WITH MINIMAL DRAIN NOTED.
[2018-10-07 08:38] LABS: BAND % (MANUAL) 8 % (0-10); EOSINOPHILS % (MANUAL) 2 % (0-8); LYMPHOCYTES % (MANUAL) 10 % (20-40); METAMYELOCYTES % 1 % (0-1); MONOCYTES % (MANUAL) 1 % (2-10); NEUTROPHILS % (MANUAL) 78 % (42-75)
[2018-10-07] MEDS: NEOMY/BACITRAC/POLYMI OINT 28.35 GM TUBE TOP SCH (08:42)
--- NOTE | 2018-10-07 09:00 | NUR ---
REPOSITION TO HIS LEFT SIDE WITH NURSE AID ASSISTANCE.
[2018-10-07] MEDS ORDERED: MAGNESIUM SULFATE/D5W 100 ML IV SCH (09:30)
--- NOTE | 2018-10-07 09:50 | NUR ---
REPORT GIVEN TO HOMER RN. CONDITION IS STABLE.
--- NOTE | 2018-10-07 10:59 | NUR ---
Clinical Pharmacy Note: TPN per Pharmacy Subjective: Pt from subacute unit, transferred to CCU d/t perforated duodenal and gastric ulcer. S/P corrective surgery. PT was NPO for 4 days and MD ordered for TPN as expected to be without GT > 7 days Professional Athlete recommendation: Plan to start TPN. Patient with central line. To meet patient's estimated need suggest: infuse @ 80ml/hour (final concentration) D10, AA 4.25% and 20% lipids 250 ml/24 hr( will start Lipids post TG result with tomorrow's AM lab). This would provide 1479 total kcals, ~ 82 gms protein. Adjust nutrition as tolerated and anticipated duration of infusion. Rx discussed with dietary. Lipids 20% 250ml bag daily. Total daily kcals 1479, 82 gms protein. This meets 100% of his lower end kcal needs and 100% of his estimated protein needs. No new notes from dietitian since 10/05 (will speak to dietitian today) Objective: Labs: Na 140, K 3.1, Cl 108, CO2 23, BUN 14, Scr 0.5, Glucose 192, Ca 8.1 (corrected: 10.3) Alb 1.2, Mg 1.5, Phos 2.5, WBC 13.2,temp 98.8, platelet 297 Assessment/Plan: 1) Will continue TPN formula (bags #5 & 6), (#5 started @1500, #4 projected start 10/08 @0330) D10%+ AA4.5% at rate of 80ml/hr. Bag #5 with addition of 30meq/L Na acetate, 1gm Mg, kphos 9 mmol, and MVI and trace elements. Bag #6 with addition of 30meq/L Na Acetate, 1gm Mg, and 9mmol Kphos. Intralipids 20% 250ml at 11ml/hr (duration ~23hrs) daily 2) Per MD orders, pt bolused today with followinmeq KCl + Mag sulfate 1 gm & 15mmol Kphos per protocol. Pt was bolused with 122meq total previous day on 10/06. Pt hypokalemic, but due to boluses, will only add 9mmol Kphos in addition to bag 5, and 6 for now. Will follow next labs in am to adjust/add if needed. 3) Pt already on accuchecks q6hr with mild sliding scale. Will monitor BS
--- NOTE | 2018-10-07 11:00 | NUR ---
kcl 10 mEQ times 4 bags infused IV for k3.1 and KPhos times 2 bags also infused for k 2.5 Addendum: 10/07/18 at 1507 by LAUREN BELLA RN Amended: Links added. Addendum: 10/07/18 at 1508 by LAUREN BELLA RN Amended: Links added. Addendum: 10/07/18 at 1510 by LAUREN BELLA RN Amended: Links added. Addendum: 10/07/18 at 1511 by LAUREN BELLA RN Amended: Links added. Addendum: 10/07/18 at 1512 by LAUREN BELLA RN Amended: Links added.
[2018-10-07] MEDS: POTASSIUM CHLORIDE 50 ML IV SCH ×4 (11:16→13:34)
[2018-10-07] MEDS: POTASSIUM PHOSPHATE MM 7.5 MMOL in IV DEXTROSE 5% 100 ML IV SCH ×2 (11:37→14:51)
[2018-10-07] MEDS ORDERED: SODIUM PHOSPHATE MM 15 MM in IV DEXTROSE 5% 250 ML IV ONE (12:00)
--- NOTE | 2018-10-07 12:00 | NUR ---
accodalyseck 161 replaced with 2 units humulin R SQ Addendum: 10/07/18 at 1508 by LAUREN BELLA RN Amended: Links added. Addendum: 10/07/18 at 1510 by LAUREN BELLA RN Amended: Links added. Addendum: 10/07/18 at 1511 by LAUREN BELLA RN Amended: Links added. Addendum: 10/07/18 at 1512 by LAUREN BELLA RN Amended: Links added.
--- NOTE | 2018-10-07 12:37 | NUR ---
care assumed from HMpatricia RN Addendum: 10/07/18 at 1237 by LAUREN BELLA RN Amended: Links added.
[2018-10-07] MEDS: IV FAT EMULSIONS 20% 250 ML IV SCH (12:44)
--- NOTE | 2018-10-07 13:29 | NUR ---
wound care to abdominal incision done. cleaned for large BM, stools soft and green. Addendum: 10/07/18 at 1330 by LAUREN BELLA RN Amended: Links added.
--- NOTE | 2018-10-07 14:00 | NUR ---
patient's at the bedside and was crying because of patient;s swelling Addendum: 10/07/18 at 1820 by LAUREN BELLA RN Amended: Links added.
[2018-10-07] MEDS ORDERED: IV FAT EMULSIONS 20% 250 ML IV SCH (14:01)
--- NOTE | 2018-10-07 14:30 | NUR ---
blood drawn for vanco level. Addendum: 10/07/18 at 1512 by LAUREN BELLA RN Amended: Links added.
[2018-10-07] MEDS: FLUCONAZOLE 200 MG/NS 100ML IV 100 MG in PREMIXED 1 EACH IV SCH (14:55)
--- NOTE | 2018-10-07 14:58 | NUR ---
intralipid - duplicated entry in emar Addendum: 10/07/18 at 1459 by LAUREN BELLA RN Amended: Yamile added. Addendum: 10/07/18 at 1507 by LAUREN BELLA RN Amended: Yamile added. Addendum: 10/07/18 at 1508 by LAUREN BELLA RN Amended: Links added. Addendum: 10/07/18 at 1510 by LAUREN BELLA RN Amended: Links added. Addendum: 10/07/18 at 1511 by LAUREN BELLA RN Amended: Links added. Addendum: 10/07/18 at 1512 by LAUREN BELLA RN Amended: Links added.
[2018-10-07] MEDS ORDERED: SODIUM ACETATE IV PRN ×7 (15:00)
[2018-10-07] MEDS ORDERED: POTASSIUM PHOSPHATE MM IV PRN ×7 (15:00)
[2018-10-07] MEDS ORDERED: [UNRECOGNIZED DRUG - OTHER] IV PRN ×7 (15:00)
[2018-10-07] MEDS ORDERED: MAGNESIUM SULFATE IV PRN ×7 (15:00)
--- NOTE | 2018-10-07 15:09 | NUR ---
afebrile Addendum: 10/07/18 at 1510 by LAUREN BELLA RN Amended: Yamile added. Addendum: 10/07/18 at 1511 by LAUREN BELLA RN Amended: Yamile added. Addendum: 10/07/18 at 1512 by LAUREN BELLA RN Amended: Links added.
--- NOTE | 2018-10-07 15:11 | NUR ---
needing tracheal suctioning as well as oropharyngeally. secretions are white to begreron. seen by dr Beltrán with no new orders Addendum: 10/07/18 at 1511 by LAUREN BELLA RN Amended: Links added. Addendum: 10/07/18 at 1512 by LAUREN BELLA RN Amended: Links added.
--- NOTE | 2018-10-07 15:21 | NUR ---
vanco level 22.8, 1500 vanco dose not given Addendum: 10/07/18 at 1521 by LAUREN BELLA RN Amended: Links added.
--- NOTE | 2018-10-07 15:48 | NUR ---
wound care done. Addendum: 10/07/18 at 1548 by LAUREN BELLA RN Amended: Links added.
--- NOTE | 2018-10-07 15:58 | NUR ---
2:45pm: SW met with patient's Zoya. Zoya was tearful, and expressed hopelessness with patient's condition. SW provided Zoya with the opportunity to express her thoughts and feelings. Zoya expressed feelings of sadness, guilt, frequent crying episodes, and difficulty concentrating. SW validated Zoya's feelings and provided her with supportive counseling. SW also provided education on grief and loss, and the impact critical illnesses and hospitalizations can have on family members. Zoya was receptive to this SW. SW then assisted Zoya with exploring ways Zoya can help herself better manage her emotional well-being. Zoya identified spending time with her neighbor and her grandchildren as healthy strategies she can use to better manage her emotional well-being. SW commended Zoya for identifying healthy strategies. Zoya then began to reminisce about patient and some of the beautiful memories they shared together and with their children. SW allowed Zoya to share these stories, providing her with support. Towards the end of this meeting, Zoya began to smile and stated "thank you, I feel so much better since I was able to talk to you". SW encouraged Zoya to reach out to SW when needed. SW will also check in on Zoya, and provide support and appropriate interventions, as needed.
--- NOTE | 2018-10-07 16:58 | NUR ---
CLINICAL PHARMACY NOTE:VANCOMYCIN DOSING S: To continue vancomycin dosing on 63 y/o male patient for sepsis O; Temp 98.8f BUN 14 Scr 0.5 WBC 13.2 ht 165 cm wt 76 kg trough level; 22.8 (on 10/07 at 1430) Plan Since vanco trough level is supra-therapeutic, will hold vanco routine dose for now. Will check vanco random level tomorrow with am labs. Pharmacy will review the level in am & adjust the dose if needed. Will follow
--- NOTE | 2018-10-07 17:07 | NUR ---
adilene 141, covered with 2 units humulin R SQ Addendum: 10/07/18 at 1708 by LAUREN BELLA RN Amended: Links added.
[2018-10-07] MEDS: MORPHINE SULFATE 2 MG/1 ML DISP.SYRIN IV PRN ×2 (17:11→23:48)
--- NOTE | 2018-10-07 19:15 | NUR ---
TAMARAR report given to Gurvinder MOORE/Yvette. Addendum: 10/07/18 at 1916 by LAUREN BELLA RN Amended: Links added.
[2018-10-07] MEDS ORDERED: hydrALAZINE HCL IV 20 MG in IV NORMAL SALINE 50 ML IV PRN (20:15)
[2018-10-07] MEDS: ACETAMINOPHEN 650 MG SUPP.RECT RC PRN (20:24)
[2018-10-07] MEDS: hydrALAZINE HCL 20 MG/1 ML VIAL IV PRN (20:40)
--- NOTE | 2018-10-07 22:00 | NUR ---
Dr Chapa was here; referred regarding HR 140s now no fever; no new orders given; observe for now;
[2018-10-08] VITALS (7 sets, daily range): BP systolic 114–192; BP diastolic 55–82
[2018-10-08] MEDS: IPRATROPIUM BROMIDE 0.5 MG/2.5 ML NEBU NEB SCH ×4 (00:41→19:09)
[2018-10-08] MEDS: MEROPENEM 1 G in IV NORMAL SALINE 100 ML IV SCH ×2 (03:10→16:18)
[2018-10-08] MEDS ORDERED: POTASSIUM PHOSPHATE MM IV PRN ×13 (03:30→16:00)
[2018-10-08] MEDS ORDERED: SODIUM ACETATE IV PRN ×13 (03:30→16:00)
[2018-10-08] MEDS ORDERED: MAGNESIUM SULFATE IV PRN ×5 (03:30)
[2018-10-08] MEDS ORDERED: [UNRECOGNIZED DRUG - OTHER] IV PRN ×5 (03:30)
[2018-10-08] MEDS: POLYVINYL ALCOHOL OPHT DROPS 15 ML BOTTLE EACHEYE SCH ×3 (05:23→21:08)
[2018-10-08] MEDS: BLOOD SUGAR DIAGNOSTIC 1 EACH STRIP VI SCH ×3 (05:24→17:26)
[2018-10-08] MEDS: INSULIN REGULAR, HUMAN 300 UNIT/3 ML VIAL SQ PRN ×3 (05:25→17:27)
[2018-10-08] MEDS: Z GUARD REMEDY PASTE 57 GM TUBE TOP PRN (05:26)
[2018-10-08 06:39] LABS: CARBON DIOXIDE 22 mmol/L (21-32); CHLORIDE 107 mmol/L (98-107); CREATININE 0.5 mg/dL (0.6-1.3); GLUCOSE 137 mg/dL (74-106); MAGNESIUM 1.7 mg/dL (1.8-2.4); PHOSPHOROUS 3.8 mg/dL (2.5-4.9); POTASSIUM 3.4 mmol/L (3.5-5.1); UREA NITROGEN, BLOOD 11 mg/dL (7-18); VANCOMYCIN,RANDOM 12.6 ug/mL (18.0-26.0)
--- NOTE | 2018-10-08 06:43 | NUR ---
Patient rested well in between care; no acute distress; repositioned for comfort; sacral dressing done; trache care done; fever last night and tylenol given KS; cooling measures done as well; continue to monitor; continue plan of care.
[2018-10-08 06:50] LABS: BASOPHILS % (AUTO) 0.1 % (0.0-2.0); EOSINOPHILS # (AUTO) 0.2 K/uL (0.0-0.7); EOSINOPHILS % (AUTO) 1.7 % (0.0-7.0); HEMATOCRIT 25.6 % (36.7-47.1); HEMOGLOBIN 8.1 g/dL (12.5-16.3); LYMPHOCYTES # (AUTO) 0.8 K/uL (20.0-40.0); LYMPHOCYTES % (AUTO) 6.3 % (20.5-51.5); MEAN CORPUSCULAR HGB CONC 32 g/dL (32.5-36.3); MEAN CORPUSCULAR VOLUME 82.1 fL (73.0-96.2); MONOCYTES # (AUTO) 0.6 K/uL (2.0-10.0); MONOCYTES % (AUTO) 4.2 % (0.0-11.0); NEUTROPHILS # (AUTO) 11.7 K/uL (1.8-8.9); NEUTROPHILS % (AUTO) 87.7 % (38.5-71.5); PLATELET COUNT (AUTO) 277 K/uL (152-348); RED BLOOD CELL COUNT(AUTO) 3.11 MIL/uL (4.06-5.63); WHITE BLOOD COUNT (AUTO) 13.4 K/uL (3.6-10.2)
--- NOTE | 2018-10-08 07:31 | NUR ---
pt remain on cont mech vent via trach. pt tolerating current settings well, no distress noted during shift. cont to monitor and report any changes.
[2018-10-08] MEDS: VANCOMYCIN IV 1,250 MG in IV DEXTROSE 5% 500 ML IV SCH ×2 (07:40→20:29)
--- NOTE | 2018-10-08 08:00 | NUR ---
NO SS OF PAIN OR DISTRESS WITH CURRENT VENT SETTINGS SATURATING 1OO%. REMAINS ST ON MONITOR
[2018-10-08] MEDS: PANTOPRAZOLE SODIUM 40 MG VIAL IV SCH ×2 (08:35→20:29)
[2018-10-08] MEDS: THERAHONEY GEL 1.5 OZ TUBE TOP SCH ×2 (08:40→21:07)
[2018-10-08] MEDS: SODIUM HYPOCHLORITE 0.125% 473 ML BOTTLE TP SCH ×3 (08:41→21:07)
[2018-10-08] MEDS: NEOMY/BACITRAC/POLYMI OINT 28.35 GM TUBE TOP SCH (08:41)
[2018-10-08] MEDS: LEVETIRACETAM IV 1,500 MG in IV DEXTROSE 5% 100 ML IV SCH ×2 (08:42→20:10)
[2018-10-08] MEDS ORDERED: IV FAT EMULSIONS 20% 250 ML IV SCH (08:45)
[2018-10-08 08:47] LABS: BAND % (MANUAL) 5 % (0-10); LYMPHOCYTES % (MANUAL) 5 % (20-40); METAMYELOCYTES % 1 % (0-1); MONOCYTES % (MANUAL) 7 % (2-10); NEUTROPHILS % (MANUAL) 82 % (42-75)
--- NOTE | 2018-10-08 09:17 | NUR ---
CLINICAL PHARMACY NOTE:VANCOMYCIN DOSING S: To continue vancomycin dosing on 63 y/o male patient for sepsis O; Temp 98.6f BUN 11 Scr 0.5 WBC 13.1 ht 165 cm wt 76 kg trough level; 22.8 (on 10/07 at 1430) Vanco random level: 12.6 (on 10/08 with am labs (last dose on 10/07 at 0530) Plan Will start vanco 1250mg IVPB q13 hr for predicted vanco trough level of 15.4 mcg/ml at steady state. 1st dose today at 0800. Plan to draw vanco trough level before 4th dose (not yet ordered). Will follow
[2018-10-08] MEDS ORDERED: MAGNESIUM SULFATE/D5W 100 ML IV SCH (11:15)
--- NOTE | 2018-10-08 11:41 | NUR ---
Clinical Pharmacy Note: TPN per Pharmacy Subjective: Pt from subacute unit, transferred to CCU d/t perforated duodenal and gastric ulcer. S/P corrective surgery. PT was NPO for 4 days and MD ordered for TPN as expected to be without GT > 7 days Supervisor [employer] recommendation: Plan to start TPN. Patient with central line. To meet patient's estimated need suggest: infuse @ 80ml/hour (final concentration) D10, AA 4.25% and 20% lipids 250 ml/24 hr( will start Lipids post TG result with tomorrow's AM lab). This would provide 1479 total kcals, ~ 82 gms protein. Adjust nutrition as tolerated and anticipated duration of infusion. Rx discussed with dietary. Lipids 20% 250ml bag daily. Total daily kcals 1479, 82 gms protein. This meets 100% of his lower end kcal needs and 100% of his estimated protein needs. No new notes from dietitian since 10/05 (spoke to Sofie RAHMAN today) Objective: Labs: Na 140, K 3.4, Cl 107, CO2 22, BUN 11, Scr 0.5, Glucose 137, Ca 8.2 (corrected: 10.4) Alb 1.2 (10/07), Mg 1.7, Phos 3.8, WBC 13.1,temp 98.4, platelet 277 Assessment/Plan: 1) Will continue TPN formula (bags #7 & 8), (#7 started @1600, #8 projected start 10/09 @0430) D10%+ AA4.5% at rate of 80ml/hr. Bag #7 with addition of 30meq/L Na acetate, 1gm Mg, kphos 9 mmol, kcl 10 meq and MVI and trace elements. Bag #6 with addition of 30meq/L Na Acetate, 1gm Mg, and 9mmol Kphos & kcl 10 meq. Intralipids 20% 250ml at 11ml/hr (duration ~23hrs) daily 2) Per MD orders, pt bolused today with followinmeq KCl + Mag sulfate 1 gm. Will follow next labs in am to adjust/add if needed. 3) Pt already on accuchecks q6hr with mild sliding scale. Will monitor BS
[2018-10-08] MEDS ORDERED: POTASSIUM CHLORIDE 50 ML IV SCH (12:30)
--- NOTE | 2018-10-08 13:00 | NUR ---
SEEN BY DR MOSELEY WITH ORDER. SEE NOTES
[2018-10-08] MEDS: FLUCONAZOLE 200 MG/NS 100ML IV 100 MG in PREMIXED 1 EACH IV SCH (13:49)
[2018-10-08] MEDS: METOPROLOL TARTRATE 5 MG/5 ML VIAL IVP PRN ×2 (13:53→19:35)
[2018-10-08] MEDS: IV FAT EMULSIONS 20% 250 ML IV SCH (14:47)
--- NOTE | 2018-10-08 14:49 | NUR ---
0845 lipids not hung due to duplicate order.
[2018-10-08] MEDS ORDERED: POTASSIUM CHLORIDE IV PRN ×8 (16:00)
[2018-10-08] MEDS ORDERED: [UNRECOGNIZED DRUG - OTHER] IV PRN ×8 (16:00)
--- NOTE | 2018-10-08 17:54 | NUR ---
CONTINUE CURRENT TX PLAN, IV TPN, LIPIDS, IV ANTIBIOTICS ORDERED. NO SS OF DISTRESS WITH CURRENT VENT SETTINGS. STILL WITH MODERATE AMOUNT OF GASTRIC SECRETIONS. ABDOMINAL DRESSING CHANGED WOUND APPEARS CLEAN WITH CLEAR DRAINAGE NON FOWL SMELL.
[2018-10-08] MEDS: ACETAMINOPHEN 650 MG SUPP.RECT RC PRN (21:00)
[2018-10-09] MEDS: BLOOD SUGAR DIAGNOSTIC 1 EACH STRIP VI SCH ×5 (00:01→23:14)
[2018-10-09 00:20] VITALS: BP 150/69
[2018-10-09] MEDS: IPRATROPIUM BROMIDE 0.5 MG/2.5 ML NEBU NEB SCH ×4 (00:57→20:49)
[2018-10-09] MEDS: MEROPENEM 1 G in IV NORMAL SALINE 100 ML IV SCH ×2 (03:08→17:11)
[2018-10-09] MEDS ORDERED: SODIUM ACETATE IV PRN ×14 (04:30→18:30)
[2018-10-09] MEDS ORDERED: POTASSIUM CHLORIDE IV PRN ×14 (04:30→18:30)
[2018-10-09] MEDS ORDERED: [UNRECOGNIZED DRUG - OTHER] IV PRN ×6 (04:30)
[2018-10-09] MEDS ORDERED: POTASSIUM PHOSPHATE MM IV PRN ×14 (04:30→18:30)
[2018-10-09] MEDS: POLYVINYL ALCOHOL OPHT DROPS 15 ML BOTTLE EACHEYE SCH ×3 (05:48→21:25)
[2018-10-09 06:09] VITALS: BP 144/71
[2018-10-09 06:44] LABS: BASOPHILS % (AUTO) 0.1 % (0.0-2.0); EOSINOPHILS # (AUTO) 0.2 K/uL (0.0-0.7); EOSINOPHILS % (AUTO) 1.4 % (0.0-7.0); HEMATOCRIT 24.7 % (36.7-47.1); LYMPHOCYTES # (AUTO) 0.9 K/uL (20.0-40.0); LYMPHOCYTES % (AUTO) 7.4 % (20.5-51.5); MEAN CORPUSCULAR HEMOGLOBIN 26.5 uug (23.8-33.4); MEAN CORPUSCULAR HGB CONC 32 g/dL (32.5-36.3); MEAN CORPUSCULAR VOLUME 82.4 fL (73.0-96.2); MONOCYTES # (AUTO) 0.7 K/uL (2.0-10.0); MONOCYTES % (AUTO) 5.8 % (0.0-11.0); NEUTROPHILS # (AUTO) 10.2 K/uL (1.8-8.9); NEUTROPHILS % (AUTO) 85.3 % (38.5-71.5); PLATELET COUNT (AUTO) 263 K/uL (152-348)
[2018-10-09 07:04] LABS: ALANINE AMINOTRANSFERASE 11 U/L (16-63); ALKALINE PHOSPHATASE 79 U/L (50-136); ASPARTATE AMINOTRANSFERASE 11 U/L (15-37); BILIRUBIN,TOTAL 0.3 mg/dL (0.2-1.0); CARBON DIOXIDE 25 mmol/L (21-32); CHLORIDE 108 mmol/L (98-107); CREATININE 0.4 mg/dL (0.6-1.3); GLUCOSE 137 mg/dL (74-106); MAGNESIUM 1.7 mg/dL (1.8-2.4); PHOSPHOROUS 3.9 mg/dL (2.5-4.9); POTASSIUM 3.3 mmol/L (3.5-5.1); TOTAL PROTEIN, SERUM 5.2 g/dL (6.4-8.2); UREA NITROGEN, BLOOD 10 mg/dL (7-18)
[2018-10-09 07:07] VITALS: BP 153/63
--- NOTE | 2018-10-09 07:10 | NUR ---
Pt received in semi tellez's position, obtunded, unable to communicate, and on continuous mechanical ventilation via Shiley 6 DCT trach. Pt received on Muñoz ventilator with ordered settings of A/C-12, VT-500, PEEP+5, FIO2-30%. Tolerating vent settings well. SpO2-98% Sxn'd & lavaged as needed. Suctioned small amounts of thick yellow/bergeron secretions. Trach is patent and secured. Minimal occluding volume technique used to assess cuff inflation. In-line nebulizer treatments given as ordered Q6 with Atrovent. Treatments tolerated well, with no adverse reactions noted. Ventilator alarm parameters checked, on and audible. Bag/valve/mask and backup trach at bedside. HME changed and trach care done. PPE used. Will continue to monitor.
--- NOTE | 2018-10-09 08:00 | NUR ---
CONTINUE WITH CURRENT IV ANTIBIOTIC, WITH NO SS OF REACTION, SATURATING 100% WITH CURRENT VENT SETTINGS, NGT TO LOW SUCTION DRAINING GREEN COLOR-LIKE BILE MODERATE AMOUNT. CONTINUE WITH BRITTANIE OBSERVATIONAS ORDERED
[2018-10-09] MEDS: PANTOPRAZOLE SODIUM 40 MG VIAL IV SCH ×2 (08:05→20:08)
[2018-10-09] MEDS: LEVETIRACETAM IV 1,500 MG in IV DEXTROSE 5% 100 ML IV SCH ×2 (08:05→21:25)
[2018-10-09] MEDS: ACETAMINOPHEN 650 MG SUPP.RECT RC PRN ×2 (08:05→23:50)
[2018-10-09] MEDS: THERAHONEY GEL 1.5 OZ TUBE TOP SCH ×2 (08:06→20:12)
[2018-10-09] MEDS: NEOMY/BACITRAC/POLYMI OINT 28.35 GM TUBE TOP SCH (08:06)
[2018-10-09] MEDS: SODIUM HYPOCHLORITE 0.125% 473 ML BOTTLE TP SCH ×4 (08:07→20:57)
[2018-10-09] MEDS: METOPROLOL TARTRATE 5 MG/5 ML VIAL IVP PRN ×2 (08:11→17:23)
[2018-10-09 09:11] LABS: ABG HCO3 21.9 mmol/L; ABG PCO2 29.8 mmHg (35.0-45.0); ABG PH 7.485 (7.350-7.450); ABG PO2 113.8 mmHg (75.0-100.0); ABG SITE RIGHT RADIAL; COHb 1.1 % (0.5-1.5); MetHb 0.3 % (0.0-1.5); O2Hb 97.2 % (94.0-97.0); VENT MODE VENT - A/C; VT, ABG 500 mL
[2018-10-09] MEDS: VANCOMYCIN IV 1,250 MG in IV DEXTROSE 5% 500 ML IV SCH ×2 (09:42→23:20)
[2018-10-09] MEDS ORDERED: FUROSEMIDE 20 MG/2 ML VIAL IV ONE ×2 (10:30→19:45)
[2018-10-09] MEDS ORDERED: MAGNESIUM SULFATE/D5W 100 ML IV SCH (10:30)
--- NOTE | 2018-10-09 10:42 | NUR ---
CLINICAL PHARMACY NOTE:VANCOMYCIN DOSING S: To continue vancomycin dosing on 63 y/o male patient for sepsis O; Temp 99f BUN 10 Scr 0.4 WBC 12 ht 165 cm wt 76 kg trough level; 22.8 (on 10/07 at 1430) Vanco random level: 12.6 (on 10/08 with am labs (last dose on 10/07 at 0530) Plan Will continue vanco 1250mg IVPB q13 hr for today. 3rd dose today at 1000. Plan to draw vanco trough level before 4th dose (ordered for today at 2230- RN has been informed to hold 2300 dose if vanco trough level is above 20 mcg/ml). Pharmacy shall review the level in am & adjust the dose if needed. Will follow
[2018-10-09 11:14] VITALS: BP 144/69
[2018-10-09] MEDS: INSULIN REGULAR, HUMAN 300 UNIT/3 ML VIAL SQ PRN ×3 (11:39→23:15)
--- NOTE | 2018-10-09 11:55 | NUR ---
DR HAMMER MADE AWARE OF LAB RESULTS WITH ORDER. AFEBRILE, NO SOB
[2018-10-09] MEDS: POTASSIUM CHLORIDE 50 ML IV SCH ×2 (12:03→13:08)
[2018-10-09] MEDS: IV FAT EMULSIONS 20% 250 ML IV SCH (12:44)
--- NOTE | 2018-10-09 12:51 | NUR ---
Clinical Pharmacy Note: TPN per Pharmacy Subjective: Pt from subacute unit, transferred to CCU d/t perforated duodenal and gastric ulcer. S/P corrective surgery. PT was NPO for 4 days and MD ordered for TPN as expected to be without GT > 7 days Owner Manager recommendation: Plan to start TPN. Patient with central line. To meet patient's estimated need suggest: infuse @ 80ml/hour (final concentration) D10, AA 4.25% and 20% lipids 250 ml/24 hr( will start Lipids post TG result with tomorrow's AM lab). This would provide 1479 total kcals, ~ 82 gms protein. Adjust nutrition as tolerated and anticipated duration of infusion. Rx discussed with dietary. Lipids 20% 250ml bag daily. Total daily kcals 1479, 82 gms protein. This meets 100% of his lower end kcal needs and 100% of his estimated protein needs. Objective: Labs: Na 142, K 3.3, Cl 108, CO2 25, BUN 10, Scr 0.5, Glucose 137, Ca 8.5 (corrected: 10.7) Alb 1.2 , Mg 1.7, Phos 3.9, WBC 12,temp 99, platelet 263 Assessment/Plan: 1) Will continue TPN formula (bags #9 & 10), (#9 starts today @1830, #9 projected start 10/10 @0700) D10%+ AA4.5% at rate of 80ml/hr. Bag #9 with addition of 20meq/L Na acetate, 1gm Mg, kphos 9 mmol, kcl 10 meq and MVI and trace elements. Bag #10 with addition of 200meq/L Na Acetate, 1gm Mg, and 9mmol Kphos & kcl 10 meq. Intralipids 20% 250ml at 11ml/hr (duration ~23hrs) daily 2) Per MD orders, pt bolused today with followinmeq KCl (also 20 mg lasix IV x1) + Mag sulfate 1 gm. Will follow next labs in am to adjust/add if needed. 3) Pt already on accuchecks q6hr with mild sliding scale. Will monitor BS
[2018-10-09] MEDS ORDERED: IV FAT EMULSIONS 20% 250 ML IV SCH (14:00)
[2018-10-09] MEDS: FLUCONAZOLE 200 MG/NS 100ML IV 100 MG in PREMIXED 1 EACH IV SCH (14:08)
[2018-10-09 17:18] VITALS: BP 127/83
[2018-10-09] MEDS: IV NORMAL SALINE 250 ML IV PRN (17:25)
--- NOTE | 2018-10-09 17:59 | NUR ---
CONTINUE CURRENT TX PLAN ORDERED. SEEN BY SURGICAL CREDIT REVIEW ANALYST SEE NOTES. REMAINS ST ON MONITOR
[2018-10-09] MEDS ORDERED: [UNRECOGNIZED DRUG - OTHER] IV PRN ×8 (18:30)
--- NOTE | 2018-10-09 19:20 | NUR ---
Receievd patient lying in bed on semi tellez's position. Eyes open but deviated. Non-verbal. NGT on low suction with minimal drainage noted. GT on leg back via gravity. Dressing on abd. surgical site clean and intact. Bilateral BRENDAN drain intact with scant amount of brownish discharge. Tracheostomy with vent, with AC 12, TV 500, FIO2 30 a PEEP 5 Addendum: 10/09/18 at 2041 by NEETU LARA RN Patient afebrile. Sinus tachy on tele at 138/min. PICC line on right upper arm intact and patent. IV ABX Merrem still running. TPN infusing 80cc/hr. Lipid 11cc/hr. DVT pump to ashanti. leg. Dressing on sacral area remains intact. Generalized edema. Elevated ashanti UE and ashanti LE with pillows. Isolation precaution observed. Continue to monitor.
[2018-10-09 19:58] VITALS: BP 139/61
--- NOTE | 2018-10-09 21:49 | NUR ---
PT ON CONT TY VENT WITH SHILEY # [address] AND SECURED, WITH SAME CURRENT VENT SETTINGS, PT DOES ASSIST AT TIMES, FAIR COUGH EFFORT, DOES NOT FOLLOW VERBAL COMMANDS, SUCTIONED VERY LIGHT PALE YELL TINGE SECRETIONS, AND SUCTION MOUTH WITH YANKAUER, TOLL WELL, NEB INLINE Q6 WITH ATROVENT TOLL WELL, ALL VENT ALARMS GOOD, CONT PULSE OXY AT BEDSIDE, SAT 100% , HIGH HR AT TIMES, NO VENT CHANGES MADE, CHECK CUFF, CHANGE HME, TRACH CARE DONE.Emily STRAUSSP Addendum: 10/09/18 at 2202 by PAIGE HOWELL RT Amended: Links added.
--- NOTE | 2018-10-09 23:50 | NUR ---
Patient noted with temp. of 101.5. Cooling measures provided. Tylenol 650mg OR given per order. Continue to monitor.
[2018-10-10 00:28] VITALS: BP 131/40
--- NOTE | 2018-10-10 00:28 | NUR ---
Temp was 101.5. Tylenol Supp given. Cooling measures provided. Will continue to monitor.
--- NOTE | 2018-10-10 01:30 | NUR ---
Temp down to 98.2 orally. In no acute distress. Continue to monitor.
[2018-10-10] MEDS: IPRATROPIUM BROMIDE 0.5 MG/2.5 ML NEBU NEB SCH ×4 (03:13→20:48)
[2018-10-10] MEDS: MEROPENEM 1 G in IV NORMAL SALINE 100 ML IV SCH ×2 (03:37→16:03)
[2018-10-10 04:00] VITALS: BP 136/55
[2018-10-10] MEDS: INSULIN REGULAR, HUMAN 300 UNIT/3 ML VIAL SQ PRN ×2 (05:07→23:15)
--- NOTE | 2018-10-10 05:59 | NUR ---
wound care provided. will continue to monitor.
[2018-10-10] MEDS: POLYVINYL ALCOHOL OPHT DROPS 15 ML BOTTLE EACHEYE SCH ×3 (06:01→21:16)
[2018-10-10] MEDS: BLOOD SUGAR DIAGNOSTIC 1 EACH STRIP VI SCH ×4 (06:02→23:14)
--- NOTE | 2018-10-10 06:22 | NUR ---
Patient appears comfortable in bed. Eyes open to tactile stimuli but deviated. Non-verbal. NGT on low suction with greenish, brownish drainage noted. HOB on semi fowlers position. GT on leg bag via gravity, scant amount of yellowish discharge. Dressing on abdominal surgical site clean and intact. Bilateral BRENDAN drain intact with minimal amount of serosanguineous discharge. Tracheostomy with vent, with AC 12, TV 500, FIO2 30 and PEEP 5. O2 sat at 100%. Suction secretions PRN. Patient afebrile at this time. Sinus tachy on tele at 129/min. PICC line on right upper arm intact and patent. No adverse effect noted from IV ABX. TPN infusing 80cc/hr. Lipid 11cc/hr. DVT pump to ashanti. leg. Dressing on sacral area clean and intact. FC intact and draining via gravity with yellow urine output and minimal sediments noted. Generalized edema. Elevated ashanti UE and ashanti LE with pillows. Isolation precaution maintained. Turn and reposition for comfort. Continue to monitor.
[2018-10-10] MEDS ORDERED: [UNRECOGNIZED DRUG - OTHER] IV PRN ×6 (07:00)
[2018-10-10] MEDS ORDERED: POTASSIUM CHLORIDE IV PRN ×22 (07:00→19:30)
[2018-10-10] MEDS ORDERED: POTASSIUM PHOSPHATE MM IV PRN ×6 (07:00)
[2018-10-10] MEDS ORDERED: SODIUM ACETATE IV PRN ×22 (07:00→19:30)
[2018-10-10 07:02] VITALS: BP 126/66
[2018-10-10 07:11] LABS: BASOPHILS % (AUTO) 0.3 % (0.0-2.0); EOSINOPHILS # (AUTO) 0.1 K/uL (0.0-0.7); EOSINOPHILS % (AUTO) 0.8 % (0.0-7.0); HEMATOCRIT 22.4 % (36.7-47.1); HEMOGLOBIN 7.5 g/dL (12.5-16.3); LYMPHOCYTES # (AUTO) 0.9 K/uL (20.0-40.0); LYMPHOCYTES % (AUTO) 8.5 % (20.5-51.5); MEAN CORPUSCULAR HEMOGLOBIN 27.3 uug (23.8-33.4); MEAN CORPUSCULAR HGB CONC 34 g/dL (32.5-36.3); MEAN CORPUSCULAR VOLUME 81.7 fL (73.0-96.2); MONOCYTES # (AUTO) 0.6 K/uL (2.0-10.0); MONOCYTES % (AUTO) 6.1 % (0.0-11.0); NEUTROPHILS # (AUTO) 8.7 K/uL (1.8-8.9); NEUTROPHILS % (AUTO) 84.3 % (38.5-71.5); PLATELET COUNT (AUTO) 254 K/uL (152-348); RED BLOOD CELL COUNT(AUTO) 2.75 MIL/uL (4.06-5.63); WHITE BLOOD COUNT (AUTO) 10.3 K/uL (3.6-10.2)
[2018-10-10 07:13] LABS: CARBON DIOXIDE 27 mmol/L (21-32); CHLORIDE 106 mmol/L (98-107); CREATININE 0.6 mg/dL (0.6-1.3); GLUCOSE 141 mg/dL (74-106); MAGNESIUM 1.6 mg/dL (1.8-2.4); PHOSPHOROUS 3.7 mg/dL (2.5-4.9); POTASSIUM 3.4 mmol/L (3.5-5.1); UREA NITROGEN, BLOOD 12 mg/dL (7-18)
[2018-10-10] MEDS: PANTOPRAZOLE SODIUM 40 MG VIAL IV SCH ×2 (09:24→20:04)
[2018-10-10] MEDS: LEVETIRACETAM IV 1,500 MG in IV DEXTROSE 5% 100 ML IV SCH ×2 (09:24→20:04)
[2018-10-10] MEDS: THERAHONEY GEL 1.5 OZ TUBE TOP SCH ×2 (09:25→20:23)
[2018-10-10] MEDS: SODIUM HYPOCHLORITE 0.125% 473 ML BOTTLE TP SCH ×4 (09:25→20:23)
[2018-10-10] MEDS: NEOMY/BACITRAC/POLYMI OINT 28.35 GM TUBE TOP SCH (09:29)
[2018-10-10] MEDS: ACETAMINOPHEN 650 MG SUPP.RECT RC PRN (09:33)
[2018-10-10 11:15] VITALS: BP 134/82
[2018-10-10] MEDS: VANCOMYCIN IV 1,250 MG in IV DEXTROSE 5% 500 ML IV SCH (12:10)
--- NOTE | 2018-10-10 12:47 | NUR ---
CLINICAL PHARMACY NOTE:VANCOMYCIN DOSING S: To continue vancomycin dosing on 63 y/o male patient for sepsis O; Temp 97.4f BUN 12 Scr 0.6 WBC 10.3 ht 165 cm wt 76 kg trough level; 17.5 (on 10/09 at 2230) Plan Since Vancomycin trough is within the range, will continue 1250mg IV every 13hrs(6th dose due tomorrow at 0100). Will monitor renal function daily to adjust the dose if needed. Will follow daily.
[2018-10-10] MEDS: IV FAT EMULSIONS 20% 250 ML IV SCH (13:43)
[2018-10-10] MEDS: FLUCONAZOLE 200 MG/NS 100ML IV 100 MG in PREMIXED 1 EACH IV SCH (13:45)
[2018-10-10] MEDS ORDERED: MAGNESIUM SULFATE/D5W 100 ML IV SCH (15:00)
[2018-10-10 15:20] VITALS: BP 145/73
--- NOTE | 2018-10-10 16:19 | NUR ---
Clinical Pharmacy Note: TPN per Pharmacy Subjective: Pt from subacute unit, transferred to CCU d/t perforated duodenal and gastric ulcer. S/P corrective surgery. PT was NPO for 4 days and MD ordered for TPN as expected to be without GT > 7 days Whirley Operator recommendation: Plan to start TPN. Patient with central line. To meet patient's estimated need suggest: infuse @ 80ml/hour (final concentration) D10, AA 4.25% and 20% lipids 250 ml/24 hr. This would provide 1479 total kcals, ~ 82 gms protein. Adjust nutrition as tolerated and anticipated duration of infusion. Rx discussed with dietary. This meets 100% of his lower end kcal needs and 100% of his estimated protein needs. Objective: Labs: Na 138, K 3.4, Cl 106, CO2 27, BUN 12, Scr 0.6, Glucose 141, Ca 8.2 Mg 1.6, Phos 3.7 Assessment/Plan: 1) Will continue TPN formula (bags #11 & 12), (#11 starts today @1900, #12 projected start 10/11 @0800) D10%+ AA4.5% at rate of 80ml/hr. Bag #11 with addition of 20meq/L Na acetate, 1gm Mg, kphos 9 mmol, kcl increased to 20 meq and MVI and trace elements. Bag #12 with addition of 20meq/L Na Acetate, 1gm Mg, and 9mmol Kphos & kcl 20 meq. Intralipids 20% 250ml at 11ml/hr (duration ~23hrs) daily 2) RX bolused additional 1 gm of magnesium (MD did not order any today) 3) Pt already on accuchecks q6hr with mild sliding scale. Will monitor BS
--- NOTE | 2018-10-10 17:19 | NUR ---
PATIENT RECEIVED ON A TY VENT WITH THE FOLLOWING SETTINGS THAT ARE CHARTED ON THE MECHANICAL VENT NOTES. TRACH TUBE IS PATENT AND SECURED WITH TRACH TIES. HME CHANGED. HHN TX GIVEN PER MD ORDER'S AND WAS TOLERATED WELL W/ NO ADVERSE REACTIONS. SUCTIONED SMALL AMOUNTS OF THIN WHITE/YELLOW SECRETIONS. PULSE OX IS ON AND IS BY BEDSIDE. VENT ALARMS ARE ON AND AUDIBLE. VENT IS PLUGGED IN THE RED OUTLET. BACK UP TRACH AND BMV IS BY BEDSIDE. PT IS TOLERATING CURRENT VENT SETTINGS WELL AT THIS TIME WITH NO SOB NOTED. WILL CONTINUE TO MONITOR.
[2018-10-10] MEDS ORDERED: DIATR MEGLU/DIATRIZOATE SODIUM 30 ML SOLUTION ONE (18:00)
--- NOTE | 2018-10-10 19:20 | NUR ---
Received patient lying in bed. Eyes open but deviated. Non-verbal. NGT clamped and started on 100cc/hr of contrast as tolerated. GT on leg bag via gravity with scant amount of serous drainage. Dressing on abd. surgical site clean and intact. Bilateral BRENDAN drain intact with scant amount of serosanguineous drainage. Tracheostomy with vent, with AC 12, TV 500, FIO2 30 and PEEP 5. O2 sat at 100%. Patient afebrile at this time with temp of 98.8 orally. Sinus tachy on tele at 128/min. PICC line on right upper arm intact and patent. TPN infusing 80cc/hr. Lipid 11cc/hr. FC intact and draining via gravity. Urine yellow in color with minimal sediments. DVT pump to riley. leg. Generalized edema. Riley UE and riley LE kept elevated with pillows. Isolation precaution observed. Continue to monitor.
[2018-10-10] MEDS ORDERED: MAGNESIUM SULFATE IV PRN ×16 (19:30)
[2018-10-10] MEDS ORDERED: [UNRECOGNIZED DRUG - OTHER] IV PRN ×8 (19:30)
[2018-10-10] MEDS ORDERED: [UNRECOGNIZED DRUG - OTHER] IV PRN ×8 (19:30)
[2018-10-10 20:19] VITALS: BP 149/78
[2018-10-10 20:21] LABS: *BILIRUBIN,URIN NEGATIVE (NEGATIVE); *BLOOD, URINE NEGATIVE (NEGATIVE); *CLARITY,URINE CLEAR (CLEAR); *COLOR,URINE YELLOW (YELLOW); *KETONES,URINE NEGATIVE (NEGATIVE); *UROBILINOGEN,URINE 0.2 E.U./dl (NORMAL); LEUKOCYTE ESTERASE ,URINE NEGATIVE (NEGATIVE); NITRITE, URINE NEGATIVE (NEGATIVE); UGLUCOSE NEGATIVE (NEGATIVE)
--- NOTE | 2018-10-10 20:30 | NUR ---
copy room technician/Tavo came in to pick up and delivery driver patient for CT. Informed Tavo that this nurse was informed by day shift nurse to give contrast 100cc/hr as tolerated only and that CT will be done tomorrow at 6am. Per Tavo contrast has to be given within 3 hours before the procedure. CT abd. reschedule to be done tomorrow at 1000am and radiology to provide new contrast at 7am tomorrow. per Tavo. Placed patient NGT back to low intermittent suction.
[2018-10-10 20:48] LABS: COARSE GRANULAR CASTS,URINE 0-3 /LPF; MUCUS,URINE MODERATE /LPF (0-FEW); URIC ACID CRYSTALS,URINE FEW /HPF (NONE SEEN); WBC,URINE 0-3 /HPF (0-3)
[2018-10-11] VITALS (7 sets, daily range): BP systolic 136–177; BP diastolic 66–85
[2018-10-11] MEDS: VANCOMYCIN IV 1,250 MG in IV DEXTROSE 5% 500 ML IV SCH ×2 (00:37→14:01)
[2018-10-11] MEDS: IPRATROPIUM BROMIDE 0.5 MG/2.5 ML NEBU NEB SCH ×4 (01:47→19:40)
--- NOTE | 2018-10-11 01:52 | NUR ---
PT ON CONT TY VENT WITH SHILEY # [address] AND SECURED WITH THE SANE CURRENT VENT SETTINGS, PT DOES ASSIST AT TIMES, WITH FAIR COUGH EFFORT, SUCTIONED VERY LIGHT PALE YELL TINGE [place] SECRETIONS, AND SUCTION MOUTH WITH SHERIN NGUYEN WELL, NEB INLINE X 2 WITH ATROVENT SHERIN WELL, ALL VENT Alarms OK, NO VENT CHANGES MADE, AMBU BAG AT BEDSIDE, TRACH CARE DONE. Emily HOWELL RCP Addendum: 10/11/18 at 0155 by PAIGE HOWELL RT Amended: Links added.
[2018-10-11] MEDS: MEROPENEM 1 G in IV NORMAL SALINE 100 ML IV SCH ×2 (03:16→16:05)
[2018-10-11] MEDS: POLYVINYL ALCOHOL OPHT DROPS 15 ML BOTTLE EACHEYE SCH ×3 (05:39→21:10)
[2018-10-11] MEDS: BLOOD SUGAR DIAGNOSTIC 1 EACH STRIP VI SCH ×3 (05:40→17:21)
[2018-10-11] MEDS: INSULIN REGULAR, HUMAN 300 UNIT/3 ML VIAL SQ PRN ×2 (05:41→17:27)
--- NOTE | 2018-10-11 06:00 | NUR ---
Patient appears comfortable in bed. Remains on semi fowlers position. NGT with low intermittent suction, greenish drainage noted. GT on leg bag via gravity with scant amount of serous drainage. Changed dressing on abd. surgical site. Bilateral BRENDAN drain intact with scant amount of serosanguineous drainage. Tracheostomy with vent, with AC 12, TV 500, FIO2 30 and PEEP 5. Suction secretions PRN. Oral care provided. O2 sat at 99%. Patient afebrile. Sinus tachy on tele at 136/min. PICC line on right upper arm intact and patent. TPN infusing 80cc/hr. Lipid 11cc/hr. No adverse reaction noted from IV ABX. FC intact and draining via gravity. Urine yellow in color with minimal sediments. Total urien output of 1250cc this shift. DVT pump to riley. leg. Generalized edema. Riley UE and riley LE kept elevated with pillows. Isolation precaution observed. Turned and repositioned q2hr. Continue to monitor.
[2018-10-11 06:58] LABS: CARBON DIOXIDE 25 mmol/L (21-32); CHLORIDE 104 mmol/L (98-107); CREATININE 0.5 mg/dL (0.6-1.3); GLUCOSE 140 mg/dL (74-106); MAGNESIUM 1.6 mg/dL (1.8-2.4); PHOSPHOROUS 3.7 mg/dL (2.5-4.9); POTASSIUM 3.5 mmol/L (3.5-5.1); UREA NITROGEN, BLOOD 11 mg/dL (7-18)
[2018-10-11] MEDS ORDERED: DIATR MEGLU/DIATRIZOATE SODIUM 30 ML SOLUTION ONE (07:06)
--- NOTE | 2018-10-11 07:30 | NUR ---
for abdominal and pelvic CT today. contrast media started to instill through NGT. Addendum: 10/11/18 at 812 by LAUREN BELLA RN Amended: Links added. Addendum: 10/11/18 at 813 by LAUREN BELLA RN Amended: Links added. Addendum: 10/11/18 at 0816 by LAUREN BELLA RN Amended: Links added.
[2018-10-11] MEDS ORDERED: SODIUM ACETATE IV PRN ×14 (08:00→21:00)
[2018-10-11] MEDS ORDERED: POTASSIUM PHOSPHATE MM IV PRN ×14 (08:00→21:00)
[2018-10-11] MEDS ORDERED: POTASSIUM CHLORIDE IV PRN ×14 (08:00→21:00)
[2018-10-11] MEDS ORDERED: [UNRECOGNIZED DRUG - OTHER] IV PRN ×6 (08:00)
--- NOTE | 2018-10-11 08:00 | NUR ---
medicated for BP 177/66 HR 136/min Addendum: 10/11/18 at 0814 by LAUREN BELLA RN Amended: Yamile added. Addendum: 10/11/18 at 0816 by LAUREN BELLA RN Amended: Yamile added.
[2018-10-11] MEDS: hydrALAZINE HCL 20 MG/1 ML VIAL IV PRN (08:03)
[2018-10-11] MEDS: MORPHINE SULFATE 2 MG/1 ML DISP.SYRIN IV PRN (08:03)
[2018-10-11] MEDS: PANTOPRAZOLE SODIUM 40 MG VIAL IV SCH ×2 (08:03→20:57)
[2018-10-11] MEDS: LEVETIRACETAM IV 1,500 MG in IV DEXTROSE 5% 100 ML IV SCH ×2 (08:16→20:58)
--- NOTE | 2018-10-11 08:16 | NUR ---
medicated for generalized discomfort Addendum: 10/11/18 at 0816 by LAUREN BELLA RN Amended: Links added.
[2018-10-11] MEDS: SODIUM HYPOCHLORITE 0.125% 473 ML BOTTLE TP SCH ×3 (09:00→20:11)
[2018-10-11] MEDS: IV NORMAL SALINE 250 ML IV PRN (09:06)
[2018-10-11] MEDS: THERAHONEY GEL 1.5 OZ TUBE TOP SCH ×2 (09:08→20:11)
--- NOTE | 2018-10-11 09:45 | NUR ---
to Radiology dept for ab/pelvic ct scan with contrast Addendum: 10/11/18 at 1128 by LAUREN BELLA RN Amended: Links added. Addendum: 10/11/18 at 1130 by LAUREN BELLA RN Amended: Links added.
--- NOTE | 2018-10-11 10:30 | NUR ---
back to room. complete bed bath and wound dresssing ro sacral area done. repositioned Addendum: 10/11/18 at 1130 by LAUREN BELLA RN Amended: Links added.
--- NOTE | 2018-10-11 11:11 | NUR ---
accellie 121, no insulin needed Addendum: 10/11/18 at 1111 by LAUREN BELLA RN Amended: Links added.
[2018-10-11] MEDS: NEOMY/BACITRAC/POLYMI OINT 28.35 GM TUBE TOP SCH (12:28)
[2018-10-11] MEDS: IV FAT EMULSIONS 20% 250 ML IV SCH (12:44)
[2018-10-11] MEDS: FLUCONAZOLE 200 MG/NS 100ML IV 100 MG in PREMIXED 1 EACH IV SCH (13:01)
[2018-10-11] MEDS ORDERED: IV FAT EMULSIONS 20% 250 ML IV SCH (14:00)
--- NOTE | 2018-10-11 14:46 | NUR ---
CLINICAL PHARMACY NOTE:VANCOMYCIN DOSING S: To continue vancomycin dosing on 63 y/o male patient for sepsis O; Temp 98.8f BUN 11 Scr 0.5 WBC 10.3() ht 165 cm wt 76 kg trough level; 17.5 (on 10/09 at 2230) Plan Will continue 1250mg IV every 13hrs(6th dose due tomorrow at 0100) for now. Will monitor renal function daily to adjust the dose if needed.
--- NOTE | 2018-10-11 15:32 | NUR ---
Clinical Pharmacy Note: TPN per Pharmacy Subjective: Pt from subacute unit, transferred to CCU d/t perforated duodenal and gastric ulcer. S/P corrective surgery. PT was NPO for 4 days and MD ordered for TPN as expected to be without GT > 7 days Nipping Machine Operator recommendation: Plan to start TPN. Patient with central line. To meet patient's estimated need suggest: infuse @ 80ml/hour (final concentration) D10, AA 4.25% and 20% lipids 250 ml/24 hr. This would provide 1479 total kcals, ~ 82 gms protein. Adjust nutrition as tolerated and anticipated duration of infusion. Rx discussed with dietary. This meets 100% of his lower end kcal needs and 100% of his estimated protein needs. Objective: Labs: Na 138, K 3.5, Cl 104, CO2 25, BUN 11, Scr 0.5, Glucose 140, Ca 8.2(corrected calcium 10.44) Mg 1.6, Phos 3.7 Assessment/Plan: 1) Will continue TPN formula (bags #13 & 14), (#13 starts today @2100, #12 projected start 10/12 @0900) D10%+ AA4.5% at rate of 80ml/hr. Bag #13 with addition of 20meq/L Na acetate, 1gm Mg, kphos 9 mmol, kcl increased to 30 meq and MVI and trace elements. Bag #14 with addition of 20meq/L Na Acetate, 1gm Mg, and 9mmol Kphos & kcl 30 meq. Intralipids 20% 250ml at 11ml/hr (duration ~23hrs) daily 2) RX bolused additional 2 gm of magnesium per protocol(MD did not order any today) 3) Pt already on accuchecks q6hr with mild sliding scale. Will monitor BS 4) RD note, anticipating resume TF near future. 5) AM labs on order:BMP, Mag, Phos
[2018-10-11] MEDS: MAGNESIUM SULFATE/D5W 100 ML IV SCH ×2 (15:36→16:28)
--- NOTE | 2018-10-11 15:43 | NUR ---
magnesium 1.6, replaced with madnesium sulfate total 2 gma IV Addendum: 10/11/18 at 1544 by LAUREN BELLA RN Amended: Links added.
--- NOTE | 2018-10-11 17:43 | NUR ---
adilene 178, covered with 3 units humulin r sq Addendum: 10/11/18 at 1743 by LAUREN BELLA RN Amended: Links added.
--- NOTE | 2018-10-11 19:30 | NUR ---
Received pt eyes open, unable to follow simple commands, gag reflex present. Upper and lower extremities flaccid. Trach to vent settings: AC 12, TV 500, PEEP 5, FIO2 30%. O2 sats at 100%. WILMA PICC line intact and patent. TPN running at 80 cc/hr. Lipids running at 11 cc/hr. TKO NS running at 10 cc/hr. Antibiotic therapy noted throughout shift. NG tube with low intermittent suction. F/C in place. VSS, afebrile. Assessment completed. Skin check and oral care done. Pt turned and repositioned. Aspiration and contact precautions maintained. No acute respiratory distress. Continue to monitor.
--- NOTE | 2018-10-11 19:35 | NUR ---
Pt received in semi tellez's position, obtunded, unable to communicate, and on continuous mechanical ventilation via Shiley 6 DCT trach. Pt received on Muñoz ventilator with ordered settings of A/C-12, VT-500, PEEP+5, FIO2-30%. Tolerating vent settings well. SpO2-99% Pt remains tachycardic. No signs or symptoms of respiratory distress noted. Sxn'd & lavaged as needed. Suctioned small amounts of thick yellow secretions. Trach is patent and secured. Minimal occluding volume technique used to assess cuff inflation. In-line nebulizer treatments given as ordered Q6 with Atrovent. Treatments tolerated well, with no adverse reactions noted. Ventilator alarm parameters checked, on and audible. Bag/valve/mask and backup trach at bedside. HME changed and trach care done. PPE used. Will continue to monitor.
[2018-10-11] MEDS ORDERED: [UNRECOGNIZED DRUG - OTHER] IV PRN ×8 (21:00)
[2018-10-12] VITALS (14 sets, daily range): BP systolic 117–153; BP diastolic 50–96
[2018-10-12] MEDS: BLOOD SUGAR DIAGNOSTIC 1 EACH STRIP VI SCH ×5 (00:43→23:42)
[2018-10-12] MEDS: IPRATROPIUM BROMIDE 0.5 MG/2.5 ML NEBU NEB SCH ×4 (01:49→19:17)
[2018-10-12] MEDS: VANCOMYCIN IV 1,250 MG in IV DEXTROSE 5% 500 ML IV SCH ×2 (02:12→16:52)
[2018-10-12] MEDS: MORPHINE SULFATE 2 MG/1 ML DISP.SYRIN IV PRN (02:24)
[2018-10-12] MEDS: MEROPENEM 1 G in IV NORMAL SALINE 100 ML IV SCH ×2 (03:18→16:52)
--- NOTE | 2018-10-12 05:40 | NUR ---
AM care rendered. Oral care provided, thin white secretions noted. Pt clean and dry. Wound care management done, pt turned and repositioned. Aspiration precautions and safety measures observed. Continue to monitor closely. Will endorse accordingly to day shift nurse.
[2018-10-12] MEDS: POLYVINYL ALCOHOL OPHT DROPS 15 ML BOTTLE EACHEYE SCH ×3 (05:50→21:06)
[2018-10-12] MEDS: INSULIN REGULAR, HUMAN 300 UNIT/3 ML VIAL SQ PRN ×3 (05:51→23:43)
[2018-10-12 06:08] LABS: BASOPHILS % (AUTO) 0.6 % (0.0-2.0); EOSINOPHILS % (AUTO) 0.4 % (0.0-7.0); HEMATOCRIT 23.2 % (36.7-47.1); HEMOGLOBIN 7.6 g/dL (12.5-16.3); LYMPHOCYTES # (AUTO) 0.8 K/uL (20.0-40.0); LYMPHOCYTES % (AUTO) 8.8 % (20.5-51.5); MEAN CORPUSCULAR HEMOGLOBIN 26.9 uug (23.8-33.4); MEAN CORPUSCULAR HGB CONC 33 g/dL (32.5-36.3); MEAN CORPUSCULAR VOLUME 81.6 fL (73.0-96.2); MONOCYTES # (AUTO) 0.6 K/uL (2.0-10.0); MONOCYTES % (AUTO) 6.7 % (0.0-11.0); NEUTROPHILS # (AUTO) 7.3 K/uL (1.8-8.9); NEUTROPHILS % (AUTO) 83.5 % (38.5-71.5); PLATELET COUNT (AUTO) 299 K/uL (152-348); RED BLOOD CELL COUNT(AUTO) 2.84 MIL/uL (4.06-5.63); WHITE BLOOD COUNT (AUTO) 8.7 K/uL (3.6-10.2)
[2018-10-12 06:34] LABS: ALANINE AMINOTRANSFERASE 13 U/L (16-63); ALKALINE PHOSPHATASE 127 U/L (50-136); ASPARTATE AMINOTRANSFERASE 14 U/L (15-37); BILIRUBIN,TOTAL 0.2 mg/dL (0.2-1.0); CARBON DIOXIDE 27 mmol/L (21-32); CHLORIDE 105 mmol/L (98-107); CREATININE 0.5 mg/dL (0.6-1.3); GLUCOSE 156 mg/dL (74-106); MAGNESIUM 1.8 mg/dL (1.8-2.4); PHOSPHOROUS 4.1 mg/dL (2.5-4.9); POTASSIUM 3.7 mmol/L (3.5-5.1); TOTAL PROTEIN, SERUM 5.7 g/dL (6.4-8.2); UREA NITROGEN, BLOOD 10 mg/dL (7-18)
--- NOTE | 2018-10-12 07:25 | NUR ---
Paged entertainment & media correspondent JAQUELIN GILL regarding critical lab value albumin 1.3. No new orders received. Continue to monitor.
--- NOTE | 2018-10-12 07:58 | NUR ---
RECEIVED A63 Y/O MALE PT A CASE OF SEPSIS, PT IS UNCONSCIOUS, HAS SPONTANEOUS EYE OPENING, BREATHING VIA TRACH SIZE SHILEY #6, CONNECTED TO MV ON AC 12, PEEP 5 , TV 500, FIO2 30%. PT CONNECTED TO ECG MONITOR SHOWING S.TACH HR AROUND 129BPM. PT HAS AN NGT CONNECTED TO LOW INTM SUCTION, AND A G-TUBE CONNECTED TO FREE DRAINAGE, PT HAS AN ABDOMINAL INCISION COVERED WITH MP, HAS 2 BRENDAN DRAINS ON -VE PRESSURE, PT HAS A SACRAL WOUND STAGE 4 COVERED WITH DRESSING.
[2018-10-12] MEDS ORDERED: POTASSIUM PHOSPHATE MM IV PRN ×6 (09:00)
[2018-10-12] MEDS ORDERED: [UNRECOGNIZED DRUG - OTHER] IV PRN ×6 (09:00)
[2018-10-12] MEDS ORDERED: SODIUM ACETATE IV PRN ×6 (09:00)
[2018-10-12] MEDS ORDERED: POTASSIUM CHLORIDE IV PRN ×6 (09:00)
[2018-10-12] MEDS: LEVETIRACETAM IV 1,500 MG in IV DEXTROSE 5% 100 ML IV SCH ×2 (09:13→20:19)
[2018-10-12] MEDS: PANTOPRAZOLE SODIUM 40 MG VIAL IV SCH ×2 (09:13→20:07)
[2018-10-12] MEDS: SODIUM HYPOCHLORITE 0.125% 473 ML BOTTLE TP SCH ×3 (09:16→20:12)
[2018-10-12] MEDS: NEOMY/BACITRAC/POLYMI OINT 28.35 GM TUBE TOP SCH (09:16)
[2018-10-12] MEDS: THERAHONEY GEL 1.5 OZ TUBE TOP SCH ×2 (09:17→20:11)
--- NOTE | 2018-10-12 10:00 | NUR ---
abdominal surgical assessed and cleaned, seems to be clean, dressing changed and patient turned.
[2018-10-12] MEDS: IV NORMAL SALINE 250 ML IV PRN ×2 (10:08→20:19)
--- NOTE | 2018-10-12 10:30 | NUR ---
SEEN BY DR ARREDONDO, ASSESSMENT DONE, ALL NEW ORDERS RECEIVED.
--- NOTE | 2018-10-12 11:30 | NUR ---
CLINICAL PHARMACY NOTE:VANCOMYCIN DOSING S: To continue vancomycin dosing on 63 y/o male patient for sepsis O; Temp 97.8f BUN 10 Scr 0.5 WBC 8.7 ht 165 cm wt 76 kg trough level; 17.5 (on 10/09 at 2230) Plan Will continue 1250mg IV every 13hrs(last dose given today at 0300) for now. Will monitor renal function daily to adjust the dose if needed.
[2018-10-12] MEDS ORDERED: FUROSEMIDE 40 MG/4 ML VIAL IV STA (13:22)
[2018-10-12] MEDS: METOPROLOL TARTRATE 5 MG/5 ML VIAL IVP PRN (13:48)
--- NOTE | 2018-10-12 14:00 | NUR ---
BED BATH DONE, SKIN ASSESSED, ALL SHEETS CHANGED. MOUTH CARE DONE.
--- NOTE | 2018-10-12 15:12 | NUR ---
Clinical Pharmacy Note: TPN per Pharmacy Subjective: Pt from subacute unit, transferred to CCU d/t perforated duodenal and gastric ulcer. S/P corrective surgery. PT was NPO for 4 days and MD ordered for TPN as expected to be without GT > 7 days News Commentator recommendation: Continue TPN. Patient with central line. To meet patient's estimated need suggest: infuse @ 80ml/hour (final concentration) D10, AA 4.25% and 20% lipids 250 ml/24 hr. This would provide 1479 total kcals, ~ 82 gms protein. Adjust nutrition as tolerated and anticipated duration of infusion. Rx discussed with dietary. This meets 100% of his lower end kcal needs and 100% of his estimated protein needs. Objective: Labs: Na 139, K 3.7, Cl 105, CO2 27 , BUN 10, Scr 0.5, Glucose 156, Ca 8.9(corrected calcium 11.06) Mg 1.8, Phos 4.1 Albumin 1.3 Assessment/Plan: GI assessment: perforated viscus likely 2/2 PUD and penetration of NG tube into wall of stomach per CT imaging. S/P open exploratory with gram patch repair of gastric anterior perforation. UGIB-coffee ground emesis per G-tube-R/O PUD. dysphagia with G-tube 1) Will continue TPN formula (bags #15 projected to start tomorrow ) D10%+ AA4.5% at rate of 80ml/hr. Bag#15 with addition of 20meq/L NaCL 1gm Mg, kphos 3 mmol, kcl 30 meq and MVI and trace elements. Intralipids 20% 250ml at 11ml/hr (duration ~23hrs) daily 2) No electrolyte bolus today 3) Pt already on accuchecks q6hr with mild sliding scale. Will monitor BS 4) RD note, anticipating resume TF near future. 5) AM labs on order:BMP, Mag, Phos
[2018-10-12] MEDS: IV FAT EMULSIONS 20% 250 ML IV SCH (15:16)
[2018-10-12] MEDS: FLUCONAZOLE 200 MG/NS 100ML IV 100 MG in PREMIXED 1 EACH IV SCH (15:16)
--- NOTE | 2018-10-12 17:30 | NUR ---
PT CONT ON RESPIRATORY VENT SUPPORT, TRACH'D. ORAL/ETT SXN'ING PERFORMED Q2. ORAL CARE/ TRACH CARE PERFORMED. NO DISTRESS/SOB NOTED DURING SHIFT. VENT ALARMS AUDIBLE/RESET. CONT WITH CURRENT RT ORDERS. CONT TO MONITOR AND REPORT ANY CHANGES.
--- NOTE | 2018-10-12 17:41 | NUR ---
SEEN BY DR TALAVERA, GI SERVICES , ORDERED TO OBTAIN A CONSENT FORM FOR ENDOSCOPY EXPLORATION, AND POSSIBLE NEW G-TUBE INSERTION.
--- NOTE | 2018-10-12 19:45 | NUR ---
ID specialist, DEEPTHI SEQUINS SPOOLER came to see and examine pt. No new orders received.
--- NOTE | 2018-10-12 19:50 | NUR ---
Received pt on contact isolation, HOB elevated, eyes open, unable to follow simple commands. Upper and lower extremities flaccid. Gag and cough reflex present. Pt on trach with vent settings: AC 12, TV 500, PEEP 5, FIO2 30%. Pt O2 sats up to 100%. Pt tele noted to be ST with HR of 128. WILMA PICC line intact, TPN running at 80 cc/hr, LIPIDS running at 11 cc/hr. TKO NS running at 10 cc/hr. VSS, afebrile. Assessment completed. Pt turned and repositioned. Wound dressings clean and intact. Aspiration precautions and safety measures in place. Continue to monitor.
--- NOTE | 2018-10-12 20:30 | NUR ---
Attending physician, JAQUELIN GILL to examine pt. Report given. No new orders. Continue to monitor pt.
[2018-10-13] VITALS (27 sets, daily range): BP systolic 122–164; BP diastolic 65–97
--- NOTE | 2018-10-13 | NUR ---
Patient received on Muñoz ventilator with ordered vent settings of A/C-12, VT-500, PEEP+5, FIO2-30%. He is trached with a Shiley 6DCT, BRIM BUSTER used for cuff inflation. Inline treatments administered and tolerated well. No adverse reactions noted. Oral/ Trach care rendered. No complications noted. Ambu bad and spare trach are at bedside. Alarm parameters are on/Audible.
[2018-10-13] MEDS: METOPROLOL TARTRATE 5 MG/5 ML VIAL IVP PRN ×3 (00:37→19:43)
[2018-10-13] MEDS: IPRATROPIUM BROMIDE 0.5 MG/2.5 ML NEBU NEB SCH ×4 (01:37→19:38)
[2018-10-13] MEDS ORDERED: POTASSIUM CHLORIDE IV PRN ×14 (02:00→15:30)
[2018-10-13] MEDS ORDERED: [UNRECOGNIZED DRUG - OTHER] IV PRN ×14 (02:00→15:30)
[2018-10-13] MEDS ORDERED: SODIUM CHLORIDE IV PRN ×14 (02:00→15:30)
[2018-10-13] MEDS: MEROPENEM 1 G in IV NORMAL SALINE 100 ML IV SCH ×2 (03:00→16:00)
--- NOTE | 2018-10-13 04:45 | NUR ---
AM care provided, oral care done -small amount of thin, white secretions noted during suctioning. Pt shaved, kept clean and dry. Wound care treatment as ordered. Pt turned and positioned. Aspiration and seizure precautions observed. Will continue to monitor.
[2018-10-13] MEDS: VANCOMYCIN IV 1,250 MG in IV DEXTROSE 5% 500 ML IV SCH ×2 (04:48→19:00)
[2018-10-13] MEDS: BLOOD SUGAR DIAGNOSTIC 1 EACH STRIP VI SCH ×4 (05:06→23:40)
[2018-10-13] MEDS: POLYVINYL ALCOHOL OPHT DROPS 15 ML BOTTLE EACHEYE SCH ×3 (05:06→21:22)
[2018-10-13 05:39] LABS: BASOPHILS % (AUTO) 0.3 % (0.0-2.0); EOSINOPHILS % (AUTO) 0.4 % (0.0-7.0); HEMATOCRIT 22.2 % (36.7-47.1); LYMPHOCYTES # (AUTO) 0.6 K/uL (20.0-40.0); LYMPHOCYTES % (AUTO) 7.3 % (20.5-51.5); MEAN CORPUSCULAR HEMOGLOBIN 26.5 uug (23.8-33.4); MEAN CORPUSCULAR HGB CONC 33 g/dL (32.5-36.3); MONOCYTES # (AUTO) 0.6 K/uL (2.0-10.0); MONOCYTES % (AUTO) 6.7 % (0.0-11.0); NEUTROPHILS # (AUTO) 7.4 K/uL (1.8-8.9); NEUTROPHILS % (AUTO) 85.3 % (38.5-71.5); PLATELET COUNT (AUTO) 312 K/uL (152-348); RED BLOOD CELL COUNT(AUTO) 2.74 MIL/uL (4.06-5.63); WHITE BLOOD COUNT (AUTO) 8.7 K/uL (3.6-10.2)
[2018-10-13 05:47] LABS: HEMOGLOBIN 7.3 g/dL (12.5-16.3)
[2018-10-13 05:52] LABS: CARBON DIOXIDE 26 mmol/L (21-32); CHLORIDE 104 mmol/L (98-107); CREATININE 0.6 mg/dL (0.6-1.3); GLUCOSE 140 mg/dL (74-106); MAGNESIUM 1.5 mg/dL (1.8-2.4); PHOSPHOROUS 4.2 mg/dL (2.5-4.9); POTASSIUM 3.7 mmol/L (3.5-5.1); UREA NITROGEN, BLOOD 11 mg/dL (7-18)
[2018-10-13] MEDS: MORPHINE SULFATE 2 MG/1 ML DISP.SYRIN IV PRN ×2 (06:31→11:45)
[2018-10-13 07:47] LABS: ABG HCO3 25.4 mmol/L; ABG PCO2 34.3 mmHg (35.0-45.0); ABG PH 7.487 (7.350-7.450); ABG PO2 115.7 mmHg (75.0-100.0); ABG SITE RIGHT RADIAL; ABG TOTAL HEMOGLOBIN 7.8 G/dL (13.5-18.0); COHb 1.4 % (0.5-1.5); MetHb 0.5 % (0.0-1.5); O2Hb 96.9 % (94.0-97.0); VENT MODE VENT - A/C 12; VT, ABG 500 mL
--- NOTE | 2018-10-13 08:00 | NUR ---
Nursing Note: Pt resting in bed. See by pulmonary md and evaluated.
[2018-10-13] MEDS: PANTOPRAZOLE SODIUM 40 MG VIAL IV SCH ×2 (08:33→20:39)
[2018-10-13] MEDS: THERAHONEY GEL 1.5 OZ TUBE TOP SCH ×2 (08:34→20:41)
[2018-10-13] MEDS: NEOMY/BACITRAC/POLYMI OINT 28.35 GM TUBE TOP SCH (08:34)
[2018-10-13] MEDS: SODIUM HYPOCHLORITE 0.125% 473 ML BOTTLE TP SCH ×3 (08:35→20:40)
[2018-10-13] MEDS: LEVETIRACETAM IV 1,500 MG in IV DEXTROSE 5% 100 ML IV SCH ×2 (09:04→21:16)
--- NOTE | 2018-10-13 09:05 | NUR ---
Received patient in bed, patient receiving TPN (TPN infusing 80cc/hr. Lipid 11cc/hr.)and antibiotics through picc line in WILMA that is intact and patent. patient eyes open but unable to follow commands and extremities are flaccid. Patient remains on semi fowlers position.Tracheostomy with vent, with AC 12, TV 500, FIO2 30 and PEEP 5. Suction secretions PRN. Oral care provided. O2 sat at 100%. NGT with low intermittent suction with brownish/bergeron appearance. GT on leg bag via gravity with scant amount of serous drainage. . Bilateral BRENDAN drain intact with scant amount of serosanguineous drainage and emptied. FC intact and draining via gravity. Urine yellow in color with minimal sediments. DVT pump to ashanti. leg. Generalized edema. Isolation precaution observed. Turned and repositioned q2hr. Continue to monitor. Addendum: 10/13/18 at 2258 by ANDREA BENSON RN 10/13/2018 time: 19:06
[2018-10-13] MEDS ORDERED: MAGNESIUM SULFATE/D5W 100 ML IV SCH (12:00)
--- NOTE | 2018-10-13 12:14 | NUR ---
CLINICAL PHARMACY NOTE:VANCOMYCIN DOSING S: To continue vancomycin dosing on 63 y/o male patient for sepsis O; Temp 98.3f BUN 11 Scr 0.6 WBC 8.7 ht 165 cm wt 76 kg trough level; 17.5 (on 10/09 at 2230) Plan Will continue 1250mg IV every 13hrs(last dose given today at 0400) for now. Will monitor renal function daily to adjust the dose if needed.
[2018-10-13] MEDS: IV FAT EMULSIONS 20% 250 ML IV SCH (12:44)
--- NOTE | 2018-10-13 13:00 | NUR ---
Nursing Note: Pt noted with episodes of persistent tachycardia and hypertension. Hydralazine, Morphine and Lopressor administered as ordered.
[2018-10-13] MEDS: hydrALAZINE HCL 20 MG/1 ML VIAL IV PRN (13:54)
[2018-10-13] MEDS ORDERED: IV FAT EMULSIONS 20% 250 ML IV SCH (14:00)
[2018-10-13] MEDS: FLUCONAZOLE 200 MG/NS 100ML IV 100 MG in PREMIXED 1 EACH IV SCH (14:27)
[2018-10-13] MEDS ORDERED: IOHEXOL 350 100 ML INFUS..BTL ONE (15:33)
[2018-10-13] MEDS ORDERED: IV NORMAL SALINE 250 ML IV ONE (15:33)
[2018-10-13] MEDS ORDERED: SWABABLE VALVE TRANSFER SET EA MC ONE (15:34)
--- NOTE | 2018-10-13 16:00 | NUR ---
Nursing Note: Pt went for CTA. Consents signed. Consent for anesthesia also signed.
--- NOTE | 2018-10-13 19:06 | NUR ---
Received patient in bed, patient receiving TPN (TPN infusing 80cc/hr. Lipid 11cc/hr.)and antibiotics through picc line in WILMA that is intact and patent. patient eyes open but unable to follow commands and extremities are flaccid. Patient remains on semi fowlers position.Tracheostomy with vent, with AC 12, TV 500, FIO2 30 and PEEP 5. Suction secretions PRN. Oral care provided. O2 sat at 100%. NGT with low intermittent suction with brownish/bergeron appearance. GT on leg bag via gravity with scant amount of serous drainage. . Bilateral BRENDAN drain intact with scant amount of serosanguineous drainage and emptied. FC intact and draining via gravity. Urine yellow in color with minimal sediments. DVT pump to ashanti. leg. Generalized edema. Isolation precaution observed. Turned and repositioned q2hr. Continue to monitor.
[2018-10-13] MEDS ORDERED: FUROSEMIDE 20 MG/2 ML VIAL IV ONE (20:15)
[2018-10-13] MEDS: INSULIN REGULAR, HUMAN 300 UNIT/3 ML VIAL SQ PRN (23:44)
[2018-10-14] VITALS (8 sets, daily range): BP systolic 113–155; BP diastolic 70–88
[2018-10-14] MEDS: IPRATROPIUM BROMIDE 0.5 MG/2.5 ML NEBU NEB SCH ×4 (01:40→19:48)
[2018-10-14] MEDS: MORPHINE SULFATE 2 MG/1 ML DISP.SYRIN IV PRN (01:51)
--- NOTE | 2018-10-14 03:00 | NUR ---
RECEIVED PT ON A TY VENT W/ THE FOLLOWING SETTINGS THAT ARE CHARTED ON THE MECHANICAL VENT NOTES. TRACH TUBE IS PATENT AND SECURED W/ TRACH TIES. HME CHANGED. HHN TX GIVEN PER MD ORDER'S AND WAS TOLERATED WELL W/ NO ADVERSE REACTIONS. SUCTIONED SMALL AMOUNTS OF THIN WHITE/YELLOW SECRETIONS.VENT ALARMS ARE ON AND AUDIBLE. VENT IS PLUGGED IN THE RED OUTLET. SPARE TRACH AND AMBU IS BY BEDSIDE. PT IS TOLERATING CURRENT VENT SETTINGS WELL AT THIS TIME WITH NO SOB NOTED. WILL CONTINUE TO MONITOR.
[2018-10-14] MEDS: IV NORMAL SALINE 250 ML IV PRN (03:30)
[2018-10-14] MEDS: MEROPENEM 1 G in IV NORMAL SALINE 100 ML IV SCH ×2 (03:53→16:58)
[2018-10-14] MEDS ORDERED: SODIUM CHLORIDE IV PRN ×8 (04:00)
[2018-10-14] MEDS ORDERED: [UNRECOGNIZED DRUG - OTHER] IV PRN ×8 (04:00)
[2018-10-14] MEDS ORDERED: POTASSIUM CHLORIDE IV PRN ×8 (04:00)
[2018-10-14 05:15] LABS: BASOPHILS % (AUTO) 0.3 % (0.0-2.0); EOSINOPHILS # (AUTO) 0.1 K/uL (0.0-0.7); EOSINOPHILS % (AUTO) 0.6 % (0.0-7.0); HEMOGLOBIN 8.5 g/dL (12.5-16.3); LYMPHOCYTES # (AUTO) 0.7 K/uL (20.0-40.0); MEAN CORPUSCULAR HEMOGLOBIN 26.7 uug (23.8-33.4); MEAN CORPUSCULAR HGB CONC 33 g/dL (32.5-36.3); MEAN CORPUSCULAR VOLUME 81.1 fL (73.0-96.2); MONOCYTES # (AUTO) 0.5 K/uL (2.0-10.0); MONOCYTES % (AUTO) 6.1 % (0.0-11.0); NEUTROPHILS # (AUTO) 7.1 K/uL (1.8-8.9); PLATELET COUNT (AUTO) 366 K/uL (152-348); WHITE BLOOD COUNT (AUTO) 8.3 K/uL (3.6-10.2)
[2018-10-14 05:25] LABS: CARBON DIOXIDE 26 mmol/L (21-32); CHLORIDE 104 mmol/L (98-107); CREATININE 0.5 mg/dL (0.6-1.3); GLUCOSE 134 mg/dL (74-106); MAGNESIUM 1.5 mg/dL (1.8-2.4); PHOSPHOROUS 4.4 mg/dL (2.5-4.9); TRIGLYCERIDES 127 MG/DL (30-150); UREA NITROGEN, BLOOD 12 mg/dL (7-18)
[2018-10-14] MEDS: POLYVINYL ALCOHOL OPHT DROPS 15 ML BOTTLE EACHEYE SCH ×3 (05:39→21:20)
[2018-10-14] MEDS: BLOOD SUGAR DIAGNOSTIC 1 EACH STRIP VI SCH ×3 (05:39→18:32)
[2018-10-14] MEDS: VANCOMYCIN IV 1,250 MG in IV DEXTROSE 5% 500 ML IV SCH ×2 (06:05→20:05)
--- NOTE | 2018-10-14 06:51 | NUR ---
gave report to OR nurse prior to surgery.
--- NOTE | 2018-10-14 06:54 | NUR ---
Patient in bed comfortably. patient is tolerating ventilatory vent settings with no respiratory distress noted. Patient with g-tube with low suctioning; green/brownish color. bi-lateral j-villegas with minimal drainage of serosanguineous fluid. Patient have WILMA picc line 3x lumen. running with TPN, lipids and antibiotics . wound treatment done and patient turned q2hrs. VSS. Patient had one bowel movement. will endorse plan of care to AM shift.
[2018-10-14] MEDS: PANTOPRAZOLE SODIUM 40 MG VIAL IV SCH (08:34)
[2018-10-14] MEDS: LEVETIRACETAM IV 1,500 MG in IV DEXTROSE 5% 100 ML IV SCH ×2 (08:34→20:40)
[2018-10-14] MEDS: THERAHONEY GEL 1.5 OZ TUBE TOP SCH ×2 (08:35→20:41)
[2018-10-14] MEDS: SODIUM HYPOCHLORITE 0.125% 473 ML BOTTLE TP SCH ×3 (08:35→20:42)
[2018-10-14] MEDS: NEOMY/BACITRAC/POLYMI OINT 28.35 GM TUBE TOP SCH (08:35)
[2018-10-14] MEDS ORDERED: MORPHINE SULFATE 4 MG/1 ML DISP.SYRIN IV ONE (09:57)
[2018-10-14] MEDS ORDERED: DIATR MEGLU/DIATRIZOATE SODIUM 30 ML SOLUTION ONE ×2 (10:51→11:26)
[2018-10-14] MEDS: MAGNESIUM SULFATE/D5W 100 ML IV SCH ×2 (11:46→12:43)
--- NOTE | 2018-10-14 12:13 | NUR ---
CLINICAL PHARMACY NOTE:VANCOMYCIN DOSING S: To continue vancomycin dosing on 63 y/o male patient for sepsis O; Temp 97.2f BUN 12 Scr 0.5 WBC 8.3 ht 165 cm wt 76 kg trough level; 17.5 (on 10/09 at 2230) Plan Will continue 1250mg IV every 13hrs (one dose given today at 0600) for now. Will monitor renal function daily to adjust the dose if needed.
[2018-10-14] MEDS ORDERED: WEAN OF TPN 1 EA EACH IV PRN (13:30)
[2018-10-14] MEDS ORDERED: IV FAT EMULSIONS 20% 250 ML IV SCH (14:00)
[2018-10-14] MEDS: FLUCONAZOLE 200 MG/NS 100ML IV 100 MG in PREMIXED 1 EACH IV SCH (14:02)
[2018-10-14] MEDS ORDERED: ETOMIDATE 20 MG/10 ML VIAL MC ONE (14:36)
[2018-10-14] MEDS ORDERED: IV NORMAL SALINE 1000 ML BAG IV ONE (14:36)
--- NOTE | 2018-10-14 15:30 | NUR ---
PT IS VERY INCONTINENT OF URINE, ON LASIX 3X DAILY ORDERED. INSERTED A FOLEYCATHETER FR 16 ORDERED WITH GOOD CLEAR URINE OUTPUT.
--- NOTE | 2018-10-14 17:09 | NUR ---
RECIEVED REPORT FROM SIRENA MOORE. PT GOT TRANSFERRED IN RM 304 VIA BED FROM CCU. BOTH EYES WIDE OPEN SPONTANEOUSLY BUT NON- VERBAL. TRACHE SHILEY 6 INTACT ANDD CONNECTED TO VENT WITH A SETTING OF AC-12, VT-500, PEEP-5, FIO2-30%. SATURATING WELL AT 99%. NO APPARENT RESPIRATORY DISTRESS NOTED. HR IS SR, NO ECTOPY. S/P PEG INSERTION DONE THIS MORNING. ALL EXTREMETIES ARE FLACCID. TPN INFUSING WELL VIA PICC LINE AT 80ML/HR. STILL NPO. ABDOMENAL DRESSING IS INTACT WITH [address] ON BOTH SIDES OF THE ABDOMEN. AFEBRILE. PT HAS GENERALIZED PITTING EDEMA NOTED.
--- NOTE | 2018-10-14 18:30 | NUR ---
ABDOMENAL DRESSING CHANGED AND PICC LINE DRESSIN CHANGED. REPOSITION TO LEFT SIDE. CONDITION STABLE.
--- NOTE | 2018-10-14 19:48 | NUR ---
PT RECEIVED ON CONTINUOUS MECHANICAL VENTILATION VIA TY VENT. REFER TO THE RESPIRATORY MECHANICAL VENT COMPLEX CHARTING FOR VENT SETTINGS AND ALARMS. PT IS TRACHED WITH A SHILEY 6. DCT TRACH. TRACH IS PATENT AND SECURED VIA TRACH TIES. PT IS TACHYCARDIC. Q6 TX ADMINISTERED. ORAL CARE DONE. HME CHANGED. SUCTIONED SMALL AMOUNT OF THICK, YELLOW SECRETIONS. AMBU BAG AND BACK UP TRACH ARE AT BEDSIDE. VENT PLUGGED INTO RED EMERGENCY OUTLET. WILL CONTINUE TO MONITOR.
--- NOTE | 2018-10-14 20:00 | NUR ---
RECEIVED PT. OPENS HIS EYES TO NOXIOUS STIMULI. TRACH TO VENT W/ SETTINGS OF AC-12, TV--500, FIO2-30%, PEEP-+5 W/ O2 SAT OF 100%. SUCTIONED VIA TRACH W/ MINIMAL THICK TANNISH MUCOUS. ABD. DRSG INTACT & DRY W/ HYPOACTIVE BOWEL SOUND. G-TUBE INTACT & PATENT, TUBE FDG NOT STARTED YET. 2 ABD.BRENDAN DRAIN INTACT W/ SCANTY SEROSANGINOUS DRAINAGE. PICC LINE ON WILMA. TPN INFUSING WELL @ 20CC/HR. AFEBRILE NOT IN ANY DISTRESS.
--- NOTE | 2018-10-14 21:00 | NUR ---
WOUND CARE DONE ON SACRAL AREA ORDERED.
[2018-10-14] MEDS: GLUCERNA 1.2 1000ML LIQUID GT PRN ×2 (21:20→22:02)
--- NOTE | 2018-10-14 22:00 | NUR ---
CHECKED RESIDUAL OF G-TUBE OBTAINED 120CC BILE DRAINAGE & DISCARDED. STARTED TUBE FDG VIA G-TUBE OF GLUCERNA 1.2 @ 10CC/HR. KEPT HOB ELEVATED 30 DEGREES.
[2018-10-15] VITALS: BP 132/70
--- NOTE | 2018-10-15 | NUR ---
CHECKED RESIDUAL ON G-TUBE 10CC NOTED. REPOSITIONED W/ HOB ELEVATED. Addendum: 10/15/18 at 0341 by ALBINA AYOUB RN charting for residual needed to be corrected, obtained 180cc, hold fdg, will recheck in 2 hrs.
[2018-10-15] MEDS: BLOOD SUGAR DIAGNOSTIC 1 EACH STRIP VI SCH ×5 (00:07→23:47)
[2018-10-15] MEDS: IPRATROPIUM BROMIDE 0.5 MG/2.5 ML NEBU NEB SCH ×4 (01:46→20:12)
--- NOTE | 2018-10-15 02:00 | NUR ---
RECHECKED G- TUBE RESIDUAL OBTAINED 200CC, CONT TO HOLD FDG. REPOSITIONED PT. W/ HOB ELEVATED.
[2018-10-15] MEDS: MEROPENEM 1 G in IV NORMAL SALINE 100 ML IV SCH ×2 (03:25→17:15)
[2018-10-15] MEDS: MORPHINE SULFATE 2 MG/1 ML DISP.SYRIN IV PRN (03:25)
[2018-10-15 04:00] VITALS: BP 133/77
[2018-10-15] MEDS: POLYVINYL ALCOHOL OPHT DROPS 15 ML BOTTLE EACHEYE SCH ×3 (05:24→23:37)
--- NOTE | 2018-10-15 06:00 | NUR ---
tube fdg remain off due to high residual.
[2018-10-15] MEDS: IV NORMAL SALINE 250 ML IV PRN (06:22)
[2018-10-15 06:41] LABS: CARBON DIOXIDE 25 mmol/L (21-32); CHLORIDE 104 mmol/L (98-107); CREATININE 0.5 mg/dL (0.6-1.3); GLUCOSE 131 mg/dL (74-106); MAGNESIUM 1.7 mg/dL (1.8-2.4); PHOSPHOROUS 4.9 mg/dL (2.5-4.9); UREA NITROGEN, BLOOD 10 mg/dL (7-18)
--- NOTE | 2018-10-15 07:30 | NUR ---
Report recived from Suzan MOORE. 63 yr old male was admittewd on 09/28/18. trach #6 to vent tv 500, peep5 fio2 30%. Had increased gt residuals last night, tube fdg was held. IV tko infusing via right upper arm picc line. tasha allen intact. ekg sinus tach Addendum: 10/15/18 at 0746 by LAUREN BELLA RN Amended: Links added.
[2018-10-15 08:00] VITALS: BP 130/71
--- NOTE | 2018-10-15 08:50 | NUR ---
REC'D PT FROM [facility] PT HAS HIS EYES OPEN DOESN'T TRACK NONRESPONSIVE HAS A TRACH VIA VENT THE SETTING AC12 TV500 FIO2 30% PEEP 5 LS SL CL WAS SUCT THIN WHITE SECRET. ORAL CARE GIVEN HOB ELEV ASP PREC MAINTAINED ABD VERY FIRM WITH BS POS IN ALL FOUR QUAD HAS A GTUBE REC'ING TUBEFEEDING AT 20ML/HR PT NOT JOSHUA WELL RESIDUAL 100ML HAS A MARIO CATH PATENT AND DRAINING QS URINE HAS AN ABD DSD DRY AND INTACT HAS TWO BRENDAN WITHOUT DRAINAGE OVERALL APPEARANCES EDEMATOUS ALL OVER HAS A WILMA PICC TRIPLE LUMENS INTACT ST ON THE MONITOR AFREBILE COMFORT AND SAFETY MAINTAINED TEACHING STARTED R/T HIS SURROUNDING PLAN OF CAR Addendum: 10/16/18 at 0636 by JASE ESPINAL RN PLAN OF CARE
[2018-10-15] MEDS: SODIUM HYPOCHLORITE 0.125% 473 ML BOTTLE TP SCH ×3 (09:00→20:14)
[2018-10-15] MEDS ORDERED: PANTOPRAZOLE SODIUM 40 MG VIAL IV ONE (09:00)
[2018-10-15] MEDS: VANCOMYCIN IV 1,250 MG in IV DEXTROSE 5% 500 ML IV SCH ×2 (09:18→23:29)
[2018-10-15] MEDS: LEVETIRACETAM IV 1,500 MG in IV DEXTROSE 5% 100 ML IV SCH ×2 (09:18→20:13)
[2018-10-15] MEDS: NEOMY/BACITRAC/POLYMI OINT 28.35 GM TUBE TOP SCH (09:31)
[2018-10-15] MEDS: METOPROLOL TARTRATE 5 MG/5 ML VIAL IVP PRN (09:51)
[2018-10-15] MEDS: THERAHONEY GEL 1.5 OZ TUBE TOP SCH ×2 (10:17→20:13)
--- NOTE | 2018-10-15 12:30 | NUR ---
wound dressing done. TEODORO Paulino here and checked on wound sacral and abdominal Addendum: 10/15/18 at 1305 by LAUREN BELLA RN Amended: Links added.
--- NOTE | 2018-10-15 12:33 | NUR ---
CLINICAL PHARMACY NOTE:VANCOMYCIN DOSING S: To continue vancomycin dosing on 63 y/o male patient for sepsis O; Temp 97.2f BUN 12 Scr 0.5 WBC 8.3 ht 165 cm wt 76 kg trough level; 17.5 (on 10/09 at 2230) Plan Will continue 1250mg IV every 13hrs (one dose given today at 0900) for now. Plan to re-check vanco trough level on 10/16 at 1030am to ensure appropriate level. Pharmacy shall review the level in am & adjust the dose if needed Will follow
[2018-10-15 13:29] VITALS: BP 115/69
[2018-10-15] MEDS: METOCLOPRAMIDE HCL 10 MG/2 ML VIAL IV SCH ×3 (13:39→23:46)
[2018-10-15] MEDS: MAGNESIUM SULFATE/D5W 100 ML IV SCH ×2 (13:40→14:33)
--- NOTE | 2018-10-15 13:40 | NUR ---
magnesium 1.7, covered with 2 gms magnesium sulfate IV Addendum: 10/15/18 at 1407 by LAUREN BELLA RN Amended: Links added.
--- NOTE | 2018-10-15 13:45 | NUR ---
started on Reglan IV q 6hrs to prevent increased gastric residuals Addendum: 10/15/18 at 1409 by LAUREN BELLA RN Amended: Links added.
[2018-10-15] MEDS: FLUCONAZOLE 200 MG/NS 100ML IV 100 MG in PREMIXED 1 EACH IV SCH (13:50)
[2018-10-15] MEDS ORDERED: VITAL AF 1.2 1,000 ML LIQUID GT PRN (14:45)
[2018-10-15 15:54] VITALS: BP 138/77
--- NOTE | 2018-10-15 19:20 | NUR ---
report given to Rola RN Addendum: 10/15/18 at 1920 by LAUREN BELLA RN Amended: Links added.
--- NOTE | 2018-10-15 19:30 | NUR ---
Received pt in Tele-TD unit - HOB elevated, eyes open, unable to follow commands. Upper and lower extremities flaccid. Pt trach to vent settings: AC 12, TV 500, PEEP 5, FIO2 30%. Pt on monitor noted to be ST with HR 130. Pt shows no s/s of acute respiratory distress. PICC on WILMA, antibiotic therapy running. Tube feeding VITAL AF, running at 20 cc/hr. Residual noted to be 50cc. F/C intact and place. Assessment completed. Pt turned and repositioned. Will continue to monitor closely.
[2018-10-15 19:54] VITALS: BP 147/86
[2018-10-15] MEDS: PANTOPRAZOLE SODIUM 40 MG VIAL IV SCH (20:11)
--- NOTE | 2018-10-15 23:18 | NUR ---
PT ON CONT TY VENT SHILEY #[address] AND SECURED, WITH SAME CURRENT VENT SETTINGS, PT DOES ASSIST AT TIMES, FAIR COUGH EFFORT, SUCTIONED VERY LIGHT PALE YELL TINGE SECRETIONS, NEB INLINE WITH ATROVENT TOLL WELL, CHECK CUFF, CHANGE HME, ALL VENT ALARMS GOOD, NO VENT CHANGES MADE, TRACH CARE DONE, AND ORAL CARE, CHANGE 4X4 FOR TRACH , PT STABLE, AMBU BAG AT BEDSIDE.Emily STRAUSSP Addendum: 10/15/18 at 2320 by PAIGE HOWELL RT Amended: Links added.
[2018-10-16] VITALS (7 sets, daily range): BP systolic 133–159; BP diastolic 68–84
[2018-10-16] MEDS: IPRATROPIUM BROMIDE 0.5 MG/2.5 ML NEBU NEB SCH ×4 (01:23→19:55)
[2018-10-16] MEDS: MEROPENEM 1 G in IV NORMAL SALINE 100 ML IV SCH ×2 (04:10→16:22)
[2018-10-16 05:03] LABS: BASOPHILS % (AUTO) 0.3 % (0.0-2.0); CARBON DIOXIDE 26 mmol/L (21-32); CHLORIDE 104 mmol/L (98-107); CREATININE 0.5 mg/dL (0.6-1.3); EOSINOPHILS % (AUTO) 0.2 % (0.0-7.0); GLUCOSE 130 mg/dL (74-106); HEMATOCRIT 25.1 % (36.7-47.1); HEMOGLOBIN 8.3 g/dL (12.5-16.3); LYMPHOCYTES # (AUTO) 0.7 K/uL (20.0-40.0); LYMPHOCYTES % (AUTO) 7.9 % (20.5-51.5); MAGNESIUM 1.7 mg/dL (1.8-2.4); MEAN CORPUSCULAR HEMOGLOBIN 26.7 uug (23.8-33.4); MEAN CORPUSCULAR HGB CONC 33 g/dL (32.5-36.3); MEAN CORPUSCULAR VOLUME 80.7 fL (73.0-96.2); MONOCYTES # (AUTO) 0.6 K/uL (2.0-10.0); MONOCYTES % (AUTO) 7.1 % (0.0-11.0); NEUTROPHILS % (AUTO) 84.5 % (38.5-71.5); PLATELET COUNT (AUTO) 333 K/uL (152-348); POTASSIUM 3.7 mmol/L (3.5-5.1); RED BLOOD CELL COUNT(AUTO) 3.11 MIL/uL (4.06-5.63); UREA NITROGEN, BLOOD 8 mg/dL (7-18); WHITE BLOOD COUNT (AUTO) 8.3 K/uL (3.6-10.2)
[2018-10-16] MEDS: BLOOD SUGAR DIAGNOSTIC 1 EACH STRIP VI SCH ×4 (06:00→23:30)
[2018-10-16] MEDS: POLYVINYL ALCOHOL OPHT DROPS 15 ML BOTTLE EACHEYE SCH ×3 (06:04→21:53)
[2018-10-16] MEDS: METOCLOPRAMIDE HCL 10 MG/2 ML VIAL IV SCH ×4 (06:04→23:08)
[2018-10-16] MEDS: hydrALAZINE HCL 20 MG/1 ML VIAL IV PRN (07:05)
--- NOTE | 2018-10-16 07:21 | NUR ---
report given to incoming nurse all questions pt condition remains the same without incident except pt did rec'd apresolinefor a sbp over 160 incoming nurse is aware
--- NOTE | 2018-10-16 07:30 | NUR ---
RECIEVED PT LYING IN BED, HOB UP 35DEGREES. OPENS EYES BUT NON VERBAL. ALL EXTREMETIES ARE FLACCID. HR IS ST NO ECTOPICS. AFEBRILE.
--- NOTE | 2018-10-16 07:45 | NUR ---
PT ON VENT AC12, FIO2-30%, PEEP-5. VT-500, SATURATING 100%. SUCTION SECRETIONS VERY SCANTY AMOUNT.
[2018-10-16] MEDS: LEVETIRACETAM IV 1,500 MG in IV DEXTROSE 5% 100 ML IV SCH ×2 (09:00→20:14)
[2018-10-16] MEDS: PANTOPRAZOLE SODIUM 40 MG VIAL IV SCH ×2 (09:36→20:14)
[2018-10-16] MEDS: THERAHONEY GEL 1.5 OZ TUBE TOP SCH ×2 (09:37→20:19)
[2018-10-16] MEDS: NEOMY/BACITRAC/POLYMI OINT 28.35 GM TUBE TOP SCH (09:37)
[2018-10-16] MEDS: SODIUM HYPOCHLORITE 0.125% 473 ML BOTTLE TP SCH ×3 (09:38→20:18)
--- NOTE | 2018-10-16 10:00 | NUR ---
PT'S ABDOMEN IS VERY DISTENDED AND FIRM, ABDOMENAL DRESSING IS CLEAN AND INTACT. KEPT NPO. GTUBE CONNECTED TO LOW INTERMITTENT SUCTION AND DRAINED ABOUT 300ML OF GASTRIC CONTENTS. TUBE FEEDING HELD AND NOTIFIED DR JONES. AWARE OF PT'S CONDITION.
--- NOTE | 2018-10-16 11:00 | NUR ---
SEEN AND EXAMINED BY DR ARREDONDO WITH NEW ORDERS.
--- NOTE | 2018-10-16 12:34 | NUR ---
CLINICAL PHARMACY NOTE:VANCOMYCIN DOSING S: To continue vancomycin dosing on 63 y/o male patient for sepsis, acute peritonis O; Temp 98.7 f BUN 8 Scr 0.5 WBC 8.3 ht 165 cm wt 76 kg trough level; 17.5 (on 10/09 at 2230) Plan vanco trough level was 23.8 will hold Vanco level for today and will order another level for tomorrow AM. Pharmacy shall review the level in am & adjust the dose if needed Will follow
[2018-10-16] MEDS: FLUCONAZOLE 200 MG/NS 100ML IV 100 MG in PREMIXED 1 EACH IV SCH (13:56)
--- NOTE | 2018-10-16 15:00 | NUR ---
SEEN AND EXAMINED BT RENUKA BOWL TURNER SURGERY. BRENDAN DRAINS ON BOTH SIDES OF THE ABDOMEN WAS REMOVED AND CLEANED UP WITH BETADINE AND COVERED WITH 4X4 GAUZE.
[2018-10-16] MEDS: MAGNESIUM SULFATE/D5W 100 ML IV SCH ×2 (15:22→16:47)
--- NOTE | 2018-10-16 17:00 | NUR ---
PT TRANSFERRED TO [facility] VIA BED. NO APPARENT DISTRESS NOTED.
--- NOTE | 2018-10-16 19:30 | NUR ---
Received patient in bed, patient receiving Merrem at 33.333 cc/hr and NS TKO through picc line in WILMA that is intact and patent. patient eyes open but unable to follow commands and extremities are flaccid. Patient remains on semi fowlers position.Tracheostomy with vent, with AC 12, TV 500, FIO2 30 and PEEP 5. O2 sat at 100%. Patient tolerating vent settings. Patient gtube connected to continuous low suction - greenish in color. Abdomen very distended without active bowel sounds. FC intact and draining via gravity. Urine yellow in color with minimal sediments. DVT pump to ashanti. leg. Generalized edema. Isolation precaution observed. Turned and repositioned. Continue to monitor.
--- NOTE | 2018-10-16 19:40 | NUR ---
Pt received in semi tellez's position, obtunded, unable to communicate, and on continuous mechanical ventilation via Shiley 6 DCT trach. Pt received on Muñoz ventilator with ordered settings of A/C-12, VT-500, PEEP+5, FIO2-30%. Tolerating vent settings well. SpO2-99% No signs or symptoms of respiratory distress noted. Sxn'd & lavaged as needed for small amounts of thick white secretions. Trach is patent and secured. Minimal occluding volume technique used to assess cuff inflation. In-line nebulizer treatments given as ordered Q6 with Atrovent. Treatments tolerated well, with no adverse reactions noted. Ventilator alarm parameters checked, on and audible. Bag/valve/mask and backup trach at bedside. HME changed. PPE used. Will continue to monitor.
[2018-10-16] MEDS: IV NORMAL SALINE 250 ML IV PRN (23:59)
[2018-10-17] VITALS (8 sets, daily range): BP systolic 134–148; BP diastolic 64–91
[2018-10-17] MEDS: IPRATROPIUM BROMIDE 0.5 MG/2.5 ML NEBU NEB SCH ×4 (01:10→19:47)
[2018-10-17] MEDS: METOCLOPRAMIDE HCL 10 MG/2 ML VIAL IV SCH ×4 (05:20→23:01)
[2018-10-17] MEDS: POLYVINYL ALCOHOL OPHT DROPS 15 ML BOTTLE EACHEYE SCH ×3 (05:20→21:06)
[2018-10-17] MEDS: BLOOD SUGAR DIAGNOSTIC 1 EACH STRIP VI SCH ×4 (05:27→23:38)
--- NOTE | 2018-10-17 06:16 | NUR ---
Patient in bed comfortably. patient bed still distended and board like. Did not start tube feeding and continue with contiuous low suction - green/brownish fluid noted. Patient tolerating vent settings. Patient vital signs are wnl. Patient wound carehas been given. WILMA picc line still intact and patent with no signs of infection around the area. Patient reposited every 2 hours and elbows and heel bilaterally offloaded. Will continue to monitor and endorse plan of care to oncoming day shift nurse.
[2018-10-17 06:33] LABS: BASOPHILS % (AUTO) 0.4 % (0.0-2.0); EOSINOPHILS % (AUTO) 0.4 % (0.0-7.0); HEMATOCRIT 24.5 % (36.7-47.1); HEMOGLOBIN 8.1 g/dL (12.5-16.3); LYMPHOCYTES # (AUTO) 0.5 K/uL (20.0-40.0); LYMPHOCYTES % (AUTO) 7.4 % (20.5-51.5); MEAN CORPUSCULAR HEMOGLOBIN 26.6 uug (23.8-33.4); MEAN CORPUSCULAR HGB CONC 33 g/dL (32.5-36.3); MEAN CORPUSCULAR VOLUME 80.4 fL (73.0-96.2); MONOCYTES # (AUTO) 0.4 K/uL (2.0-10.0); MONOCYTES % (AUTO) 6.8 % (0.0-11.0); NEUTROPHILS # (AUTO) 5.4 K/uL (1.8-8.9); PLATELET COUNT (AUTO) 314 K/uL (152-348); RED BLOOD CELL COUNT(AUTO) 3.05 MIL/uL (4.06-5.63); WHITE BLOOD COUNT (AUTO) 6.4 K/uL (3.6-10.2)
[2018-10-17 06:43] LABS: ALANINE AMINOTRANSFERASE 13 U/L (16-63); ALKALINE PHOSPHATASE 197 U/L (50-136); ASPARTATE AMINOTRANSFERASE 14 U/L (15-37); BILIRUBIN,TOTAL 0.5 mg/dL (0.2-1.0); CARBON DIOXIDE 25 mmol/L (21-32); CHLORIDE 108 mmol/L (98-107); CREATININE 0.6 mg/dL (0.6-1.3); GLUCOSE 112 mg/dL (74-106); MAGNESIUM 1.7 mg/dL (1.8-2.4); PHOSPHOROUS 4.8 mg/dL (2.5-4.9); POTASSIUM 3.5 mmol/L (3.5-5.1); UREA NITROGEN, BLOOD 7 mg/dL (7-18); VANCOMYCIN,RANDOM 15.6 ug/mL (18.0-26.0)
--- NOTE | 2018-10-17 07:26 | NUR ---
RECEIVED PT ON TY VENTILATOR. PT HAS A SHILEY 6 DCT TRACH. TRACH IS PATENT AND SECURED VIA TRACH TIES. REFER TO THE RESPIRATORY MECHANICAL VENT COMPLEX CHARTING FOR VENT SETTINGS AND ALARMS. CONTINUOUS PULSE OF REMAINS ON AND AUDIBLE AT BEDSIDE. PT HEART RATE IS AT 115. SPO2 99%. ORAL CARE DONE NEEDED. HME CHANGED. IN-LINE Q6 UNIT DOSE OF ATROVENT ADMINISTERED ORDERED. NO ADVERSE REACTIONS OBSERVED. SUCTIONED SMALL AMOUNT OF THICK, YELLOW SECRETIONS. AMBU BAG AND BACK UP TRACH ARE AT BEDSIDE. VENT IS PLUGGED INTO RED EMERGENCY OUTLET. NO S/S OF RESPIRATORY DISTRESS AT THIS TIME. WILL CONTINUE TO MONITOR PT.
[2018-10-17] MEDS: PANTOPRAZOLE SODIUM 40 MG VIAL IV SCH ×2 (08:53→20:15)
[2018-10-17] MEDS: LEVETIRACETAM IV 1,500 MG in IV DEXTROSE 5% 100 ML IV SCH ×2 (08:54→20:15)
[2018-10-17] MEDS ORDERED: VANCOMYCIN IV 1,250 MG in IV DEXTROSE 5% 500 ML IV ONE (09:00)
[2018-10-17] MEDS: SODIUM HYPOCHLORITE 0.125% 473 ML BOTTLE TP SCH ×3 (09:09→20:16)
[2018-10-17] MEDS: THERAHONEY GEL 1.5 OZ TUBE TOP SCH ×2 (09:09→20:17)
[2018-10-17] MEDS: NEOMY/BACITRAC/POLYMI OINT 28.35 GM TUBE TOP SCH (09:10)
--- NOTE | 2018-10-17 11:36 | NUR ---
Pt blood sugar 137. No insulin given at this time in light of pt's NPO status. NGT feedings on hold, pt not tolerating/abd distended.
[2018-10-17] MEDS: IV NS 1000 ML 1,000 ML IV PRN (11:59)
--- NOTE | 2018-10-17 13:39 | NUR ---
CLINICAL PHARMACY NOTE:VANCOMYCIN DOSING S: To continue vancomycin dosing on 63 y/o male patient for sepsis, acute peritonis O; Temp 97.8 f BUN 7 Scr 0.6 WBC 6.4 ht 165 cm wt 76 kg trough repeat 10/16 @1030: 23.8 random today with am labs 15.6 Plan Due to supratherapeutic level after prolonged course, pt is now being dosed per level. Per today's random level, dosed another 1250mg vanco x 1 at 0900 for now. Next random due tomorrow with am labs. Will follow level and dose as needed. Will follow
[2018-10-17] MEDS: MAGNESIUM SULFATE/D5W 100 ML IV SCH ×2 (14:10→15:40)
--- NOTE | 2018-10-17 15:05 | NUR ---
Called Dr. Gongora's Office regarding GI consult, awaiting for call back.
--- NOTE | 2018-10-17 16:16 | NUR ---
Wound treatment care provided as ordered.
--- NOTE | 2018-10-17 16:32 | NUR ---
Called Dr. Gongora's Office and spoke with gege to followed up regarding GI consult, awaiting for call back.
--- NOTE | 2018-10-17 17:17 | NUR ---
PO 1700 Neurontin not given, pt still lethargy. Addendum: 10/17/18 at 1720 by MARKUS LOPEZ RN disregard nursing notes charted on wrong patient. note for Room 307
--- NOTE | 2018-10-17 19:20 | NUR ---
Received patient in bed, patient receiving iv fluids of NS running at 75cc/hr through picc line in WILMA that is intact and patent. patient eyes open but unable to follow commands and extremities are flaccid. Patient remains on semi fowlers position.Tracheostomy with vent, with AC 12, TV 500, FIO2 30 and PEEP 5. O2 sat at 100%. Patient tolerating vent settings. Patient gtube connected to continuous low suction - greenish in color. Abdomen v distended. FC intact and draining via gravity. Urine dark yellow in color with minimal sediments. DVT pump to ashanti. leg. Generalized edema. Isolation precaution observed. Turned and repositioned. Continue to monitor.
--- NOTE | 2018-10-17 19:30 | NUR ---
Pt received obtunded, unable to communicate, in semi tellez's position, and on continuous mechanical ventilation via Shiley 6 DCT trach. Pt received on Muñoz ventilator with ordered settings of A/C-12, VT-500, PEEP+5, FIO2-30%. Tolerating vent settings well. SpO2-98% No signs or symptoms of respiratory distress noted. Sxn'd & lavaged as needed for small amounts of thick pale yellowish secretions. Trach is patent and secured. Minimal occluding volume technique used to assess cuff inflation. In-line nebulizer treatments given as ordered Q6 with Atrovent. Treatments tolerated well, with no adverse reactions noted. Ventilator alarm parameters checked, on and audible. Bag/valve/mask and backup trach at bedside. HME changed. PPE used. Will continue to monitor.
[2018-10-18] VITALS: BP 145/79
[2018-10-18] MEDS: IPRATROPIUM BROMIDE 0.5 MG/2.5 ML NEBU NEB SCH ×4 (01:10→19:27)
[2018-10-18] MEDS: IV NS 1000 ML 1,000 ML IV PRN ×2 (03:10→23:31)
[2018-10-18 04:00] VITALS: BP 122/84
[2018-10-18] MEDS: METOCLOPRAMIDE HCL 10 MG/2 ML VIAL IV SCH ×4 (05:30→23:38)
[2018-10-18] MEDS: POLYVINYL ALCOHOL OPHT DROPS 15 ML BOTTLE EACHEYE SCH ×3 (05:31→21:32)
[2018-10-18] MEDS: BLOOD SUGAR DIAGNOSTIC 1 EACH STRIP VI SCH ×4 (05:39→23:39)
--- NOTE | 2018-10-18 06:19 | NUR ---
end of shift report:patient receiving iv fluids of NS running at 75cc/hr through picc line in WILMA that is intact and patent. patient eyes open but unable to follow commands and extremities are flaccid. Patient remains on semi fowlers position.Tracheostomy with vent, with AC 12, TV 500, FIO2 30 and PEEP 5. O2 sat at 100%. Patient tolerating vent settings. Patient gtube connected to continuous low suction - greenish/brown in color. Abdomen still distended. FC intact and draining via gravity. Urine dark yellow in color with minimal sediments. DVT pump to ashanti. leg. Generalized edema. Isolation precaution observed. Turned and repositioned. Continue to monitor. will endorse plan of care to day shift nurse,
[2018-10-18 06:53] LABS: ALANINE AMINOTRANSFERASE 11 U/L (16-63); ALKALINE PHOSPHATASE 176 U/L (50-136); ASPARTATE AMINOTRANSFERASE 13 U/L (15-37); BILIRUBIN,TOTAL 0.4 mg/dL (0.2-1.0); CARBON DIOXIDE 26 mmol/L (21-32); CHLORIDE 109 mmol/L (98-107); CREATININE 0.6 mg/dL (0.6-1.3); GLUCOSE 100 mg/dL (74-106); MAGNESIUM 1.6 mg/dL (1.8-2.4); PHOSPHOROUS 4.2 mg/dL (2.5-4.9); POTASSIUM 3.1 mmol/L (3.5-5.1); TOTAL PROTEIN, SERUM 5.5 g/dL (6.4-8.2); UREA NITROGEN, BLOOD 7 mg/dL (7-18); VANCOMYCIN,RANDOM 16.9 ug/mL (18.0-26.0)
[2018-10-18 07:04] LABS: BASOPHILS % (AUTO) 0.4 % (0.0-2.0); EOSINOPHILS % (AUTO) 0.5 % (0.0-7.0); HEMATOCRIT 23.5 % (36.7-47.1); HEMOGLOBIN 7.7 g/dL (12.5-16.3); LYMPHOCYTES # (AUTO) 0.5 K/uL (20.0-40.0); LYMPHOCYTES % (AUTO) 10.1 % (20.5-51.5); MEAN CORPUSCULAR HEMOGLOBIN 26.7 uug (23.8-33.4); MEAN CORPUSCULAR HGB CONC 33 g/dL (32.5-36.3); MONOCYTES # (AUTO) 0.5 K/uL (2.0-10.0); MONOCYTES % (AUTO) 8.4 % (0.0-11.0); NEUTROPHILS # (AUTO) 4.4 K/uL (1.8-8.9); NEUTROPHILS % (AUTO) 80.6 % (38.5-71.5); PLATELET COUNT (AUTO) 266 K/uL (152-348); WHITE BLOOD COUNT (AUTO) 5.4 K/uL (3.6-10.2)
--- NOTE | 2018-10-18 07:35 | NUR ---
Orienting with TERESA Vigil today. All assessment and documentation reviewed by RN.
[2018-10-18] MEDS: LEVETIRACETAM IV 1,500 MG in IV DEXTROSE 5% 100 ML IV SCH ×2 (08:08→20:38)
[2018-10-18] MEDS: PANTOPRAZOLE SODIUM 40 MG VIAL IV SCH (08:09)
[2018-10-18] MEDS: THERAHONEY GEL 1.5 OZ TUBE TOP SCH ×2 (08:17→20:58)
[2018-10-18] MEDS: NEOMY/BACITRAC/POLYMI OINT 28.35 GM TUBE TOP SCH (08:18)
[2018-10-18] MEDS: SODIUM HYPOCHLORITE 0.125% 473 ML BOTTLE TP SCH ×3 (08:18→20:57)
[2018-10-18] MEDS ORDERED: VANCOMYCIN IV 1,250 MG in IV DEXTROSE 5% 500 ML IV ONE (09:00)
--- NOTE | 2018-10-18 10:40 | NUR ---
Seen by Dr. Beltrán, full report given, No New Orders at this time. Addendum: 10/18/18 at 1052 by BRYAN CARSON RN New orders received.
[2018-10-18 11:29] VITALS: BP 133/74
[2018-10-18] MEDS: MAGNESIUM SULFATE/D5W 100 ML IV SCH ×2 (11:44→12:45)
[2018-10-18 15:54] VITALS: BP 131/64
--- NOTE | 2018-10-18 15:57 | NUR ---
PT REMAINS ON MECHANICAL VENTILATION, TOLERATING VENT SETTINGS WELL. NO CHANGES MADE. WILL CONTINUE VENTILATOR SUPPORT AND MONITOR FOR RESPIRATORY DISTRESS.
[2018-10-18] MEDS: POTASSIUM CHLORIDE 50 ML IV SCH ×4 (16:33→20:36)
--- NOTE | 2018-10-18 17:32 | NUR ---
Called Dr. Gongora and left message for MD to see pt for consultation.
--- NOTE | 2018-10-18 17:42 | NUR ---
Spoke with Dr. Gongora on the telephone and full report given regarding pt. stated that he will see the pt tomorrow.
--- NOTE | 2018-10-18 20:00 | NUR ---
RECEIVED PT. OPENS HIS EYES TO ANY NOXIOUS STIMULI. TRACH TO VENT W/ SETTINGS OF AC-12, TV-500, FIO2-30%, PEEP-+5 W/ O2 SAT OF 98%. ABD. DRSG DRY & INTACT. G-TUBE INTACT & CLAMPED. IVF NS @ 75CC/HR VIA WILMA PICC LINE. REPOSITIONED ON HIS SIDE W/ HOB ELEVATED. SUCTIONED VIA TRACH & ORALLY W/ MINIMAL TANNISH THICK MUCOUS.
[2018-10-18 20:37] VITALS: BP 160/78
[2018-10-18] MEDS: FAMOTIDINE. 20 MG/2 ML VIAL IV SCH (20:56)
--- NOTE | 2018-10-18 21:00 | NUR ---
WOUND CARE DONE ON SACRUM AREA ORDERED. HS CARE DONE.
[2018-10-19] MEDS: IPRATROPIUM BROMIDE 0.5 MG/2.5 ML NEBU NEB SCH ×4 (00:39→19:28)
[2018-10-19 01:07] VITALS: BP 156/88
--- NOTE | 2018-10-19 03:05 | NUR ---
Trached patient received on Muñoz ventilator with ordered vent settings of A/C-12, VT-500, PEEP+5, FIO2-30%. No signs of respiratory distress noted at this time. He is trached with a Shiley 6DCT, HOME CARE SPECIALIST used for cuff inflation. Inline treatments administered and tolerated well. No adverse reactions noted. Oral/ Trach care rendered. No complications noted. Ambu bad and spare trach are at bedside. Alarm parameters are on/Audible.
[2018-10-19] MEDS: POLYVINYL ALCOHOL OPHT DROPS 15 ML BOTTLE EACHEYE SCH ×3 (05:34→21:09)
[2018-10-19] MEDS: BLOOD SUGAR DIAGNOSTIC 1 EACH STRIP VI SCH ×3 (05:35→17:31)
[2018-10-19] MEDS: METOCLOPRAMIDE HCL 10 MG/2 ML VIAL IV SCH ×3 (05:37→17:37)
--- NOTE | 2018-10-19 05:42 | NUR ---
AM CARE DONE. ORAL CARE DONE. REPOSITIONED ON HIS SIDE W/ HOB ELEVATED.
--- NOTE | 2018-10-19 06:07 | NUR ---
PT. HAD MODERATE AMT. OF SOFT BLACKISH STOOL.
[2018-10-19 06:32] LABS: CREATININE 0.7 mg/dL (0.6-1.3); MAGNESIUM 2.7 mg/dL (1.8-2.4); PHOSPHOROUS 4.8 mg/dL (2.5-4.9); POTASSIUM 3.7 mmol/L (3.5-5.1)
[2018-10-19 06:58] LABS: BASOPHILS % (AUTO) 0.5 % (0.0-2.0); EOSINOPHILS % (AUTO) 0.6 % (0.0-7.0); HEMATOCRIT 24.1 % (36.7-47.1); HEMOGLOBIN 7.9 g/dL (12.5-16.3); LYMPHOCYTES # (AUTO) 0.8 K/uL (20.0-40.0); LYMPHOCYTES % (AUTO) 13.9 % (20.5-51.5); MEAN CORPUSCULAR HEMOGLOBIN 26.3 uug (23.8-33.4); MEAN CORPUSCULAR HGB CONC 33 g/dL (32.5-36.3); MEAN CORPUSCULAR VOLUME 80.3 fL (73.0-96.2); MONOCYTES # (AUTO) 0.6 K/uL (2.0-10.0); MONOCYTES % (AUTO) 10.2 % (0.0-11.0); NEUTROPHILS # (AUTO) 4.1 K/uL (1.8-8.9); NEUTROPHILS % (AUTO) 74.8 % (38.5-71.5); PLATELET COUNT (AUTO) 289 K/uL (152-348); WHITE BLOOD COUNT (AUTO) 5.5 K/uL (3.6-10.2)
[2018-10-19 07:48] VITALS: BP 137/69
--- NOTE | 2018-10-19 07:56 | NUR ---
PT RECEIVED TRACH TO VENT ON CMV, PT IS ON A TY VENT ON SETTINGS OF A/C 12, VT 500, AND 30% FIO2. SHILEY #6 TRACH IS PATENT AND SECURE. VENT PARAMETERS AND ALARMS CHECKED. ALARMS ARE AUDIBLE. IN-LINE TX TOLERATED WELL, NO ADVERSE REACTION NOTED. PT IS TOLERATING VENT SETTINGS WELL, NO RESP. DISTRESS NOTED AT THIS TIME. AMBU-BAG AND BACK-UP TACH AT BEDSIDE. VENT PLUGGED INTO RED OUTLET. SUCTION PRN. WILL CONTINUE TO MONITOR.
[2018-10-19] MEDS: FAMOTIDINE. 20 MG/2 ML VIAL IV SCH ×2 (08:27→21:06)
[2018-10-19] MEDS: LEVETIRACETAM IV 1,500 MG in IV DEXTROSE 5% 100 ML IV SCH ×2 (08:27→21:05)
[2018-10-19] MEDS: THERAHONEY GEL 1.5 OZ TUBE TOP SCH ×2 (08:29→21:10)
[2018-10-19] MEDS: SODIUM HYPOCHLORITE 0.125% 473 ML BOTTLE TP SCH ×3 (08:29→21:10)
[2018-10-19 11:50] VITALS: BP 130/71
[2018-10-19] MEDS: IV NS 1000 ML 1,000 ML IV PRN (13:42)
[2018-10-19] MEDS ORDERED: TPN/PPN PER PHARMACY IV PRN (16:00)
--- NOTE | 2018-10-19 17:25 | NUR ---
TPN reinitiated ordered 10/19/18 Spoke with RN today regarding feeding, no feeding for the past ~5 days due to high gastric residual. TPN ordered from MD to re-initiated TPN. Spoke with Pharm-D regarding TPN initiation, per Pharm-D D10% and AA 4.25% concentration is available. Est needs based on Adj wt of 56kg IBW Calories: 4014-7769 kcal based on 25-30/56kg Protein: 67-84 gm based on 1.2-1.5gm/56 kg Labs: 10/19: Mg 2.7H, Na 142, K3.7, Phos 4.8, BG 114, BUN 7, Cr 0.7, Calcium 10.5H, Corrected calcium 12.74mg/dL 10/18: alb 1.2L Dietitian�s Recommendations: -Recs TPN goal: D10%/AA 4.25% @ 80ml/hr + IL 20% 250ml daily. At goal would provide 1479 kcal and 82gm protein -When TPN initiated, recs start at 30ml/hr and increase 10ml q2hr as pt tolerated until reach goal rate (or initiation regimen per Pharm D) -Recs check Triglycerides after 4 hrs TPN initiated and monitor BG/electrolytes closely Addendum: 10/19/18 at [address] Amended: Links added.
[2018-10-19 17:32] VITALS: BP 149/79
[2018-10-19] MEDS ORDERED: IV FAT EMULSIONS 20% 250 ML IV SCH (18:00)
--- NOTE | 2018-10-19 18:09 | NUR ---
Clinical Pharmacy notes: TPN per pharmacy Subjective:PT with hx of perforated gastric and duodenal ulcer. S/P corrective surgury. Patient was previously on TPN, Then tried with tube feeding via J tube starting 10/14. He was not tolerating the tube feeding, had high residual, in addition His abdomen was extended. So tube feed placed on hold. MD ordered to re-initiate TPN. Per chaser tar recommendation to restart TPN : D 10% + AA 4.25 % with nova rate of 80 ml/h + lipids 250 ml @ 10 ml/hr . Objectives: current wt 78 kg, temp 98.4, Na 142, K 3.7, Cl 107, Co2 28, Glucose 101, BUN/SCR 7/0.7, CA 10.5, MAG 2.7, PHOS 4.8 TG ON (10/14) 127 Assessment/Plan: 1) Will start TPN bag #1 (projected start @ 1900) as final concentration of D 10% + AA 4.25 % + kcl 20 meq + Nacl 30 meq + MVI 10 ml + trace elements 1 ml. Will add Intralipids 20% , 250 ml @ 10 ml/hr. To titrate the first bag of TPN; Starting rate 30 ml/hr and increase by 10 ml/hr to nova rate of 80 ml/hr . TPN will provide us with 1479.20 kcal /day including the protein and lipids kcal. This formulation will provide ~82 gm of protein. 2) Patient is currently on large volume IV NS @ 75 ml/hr. Will d/c IV as soon as TPN starts. 3) Pt is currently on ACCUCK q6h will continue to monitor electrolytes.
[2018-10-19] MEDS ORDERED: SODIUM CHLORIDE IV PRN ×6 (19:00)
[2018-10-19] MEDS ORDERED: [UNRECOGNIZED DRUG - OTHER] IV PRN ×6 (19:00)
[2018-10-19] MEDS ORDERED: POTASSIUM CHLORIDE IV PRN ×6 (19:00)
[2018-10-19 20:12] VITALS: BP 171/87
[2018-10-20 00:22] VITALS: BP 158/93
[2018-10-20] MEDS: BLOOD SUGAR DIAGNOSTIC 1 EACH STRIP VI SCH ×5 (00:43→23:15)
[2018-10-20] MEDS: IPRATROPIUM BROMIDE 0.5 MG/2.5 ML NEBU NEB SCH ×4 (01:14→19:39)
[2018-10-20 04:08] VITALS: BP 144/87
[2018-10-20 05:53] LABS: BASOPHILS % (AUTO) 0.7 % (0.0-2.0); EOSINOPHILS # (AUTO) 0.1 K/uL (0.0-0.7); EOSINOPHILS % (AUTO) 0.8 % (0.0-7.0); HEMATOCRIT 24.7 % (36.7-47.1); HEMOGLOBIN 8.1 g/dL (12.5-16.3); LYMPHOCYTES # (AUTO) 0.7 K/uL (20.0-40.0); LYMPHOCYTES % (AUTO) 12.3 % (20.5-51.5); MEAN CORPUSCULAR HEMOGLOBIN 26.2 uug (23.8-33.4); MEAN CORPUSCULAR HGB CONC 33 g/dL (32.5-36.3); MONOCYTES # (AUTO) 0.6 K/uL (2.0-10.0); MONOCYTES % (AUTO) 9.9 % (0.0-11.0); NEUTROPHILS # (AUTO) 4.6 K/uL (1.8-8.9); NEUTROPHILS % (AUTO) 76.3 % (38.5-71.5); PLATELET COUNT (AUTO) 301 K/uL (152-348); RED BLOOD CELL COUNT(AUTO) 3.09 MIL/uL (4.06-5.63); WHITE BLOOD COUNT (AUTO) 6.1 K/uL (3.6-10.2)
[2018-10-20] MEDS: METOCLOPRAMIDE HCL 10 MG/2 ML VIAL IV SCH ×5 (06:00→23:10)
[2018-10-20 06:12] LABS: CREATININE 0.8 mg/dL (0.6-1.3); MAGNESIUM 1.6 mg/dL (1.8-2.4); PHOSPHOROUS 4.3 mg/dL (2.5-4.9); POTASSIUM 3.4 mmol/L (3.5-5.1)
[2018-10-20] MEDS: INSULIN REGULAR, HUMAN 300 UNIT/3 ML VIAL SQ PRN ×2 (06:20→23:19)
[2018-10-20] MEDS: POLYVINYL ALCOHOL OPHT DROPS 15 ML BOTTLE EACHEYE SCH ×3 (06:24→21:10)
[2018-10-20 08:06] VITALS: BP 141/81
[2018-10-20] MEDS: FAMOTIDINE. 20 MG/2 ML VIAL IV SCH ×2 (08:20→20:45)
[2018-10-20] MEDS: THERAHONEY GEL 1.5 OZ TUBE TOP SCH ×2 (08:21→20:44)
[2018-10-20] MEDS: SODIUM HYPOCHLORITE 0.125% 473 ML BOTTLE TP SCH ×3 (08:22→20:44)
[2018-10-20] MEDS: LEVETIRACETAM IV 1,500 MG in IV DEXTROSE 5% 100 ML IV SCH ×2 (08:27→20:44)
[2018-10-20] MEDS ORDERED: MAGNESIUM SULFATE/D5W 100 ML IV SCH (10:45)
[2018-10-20 12:00] VITALS: BP 129/78
[2018-10-20] MEDS ORDERED: POTASSIUM CHLORIDE IV PRN ×6 (12:00)
[2018-10-20] MEDS ORDERED: SODIUM ACETATE IV PRN ×6 (12:00)
[2018-10-20] MEDS ORDERED: [UNRECOGNIZED DRUG - OTHER] IV PRN ×6 (12:00)
[2018-10-20] MEDS ORDERED: POTASSIUM ACETATE IV PRN ×6 (12:00)
--- NOTE | 2018-10-20 12:22 | NUR ---
Clinical Pharmacy notes: TPN per pharmacy Subjective:PT with hx of perforated gastric and duodenal ulcer. S/P corrective surgury. Patient was previously on TPN, Then tried with tube feeding via J tube starting 10/14. He was not tolerating the tube feeding, had high residual, in addition His abdomen was extended. So tube feed placed on hold. MD ordered to re-initiate TPN. Per tow motor driver recommendation to restart TPN : D 10% + AA 4.25 % with goal rate of 80 ml/h + lipids 250 ml @ 10 ml/hr . Objectives: current wt 78 kg, temp 97.9, Na 146, K 3.3, Cl 111, Co2 26, Glucose 156, BUN/SCR 10/0.8, CA 10.4, MAG 1.6, PHOS 4.3, corrected ca level: 12.6 TG ON (10/14) 127 Assessment/Plan: 1) Will start TPN bag #2 (projected start @ 1200) as final concentration of D 10% + AA 4.25 % + kcl 10 meq + Na acetate 10 meq + K acetate 10 meq + Mag sulfate 1 gm at 80 ml/hr. Will continue Intralipids 20% , 250 ml @ 10 ml/hr. 2) Will start TPN bag #2 (projected start @ 0030 on 10/21) as final concentration of D 10% + AA 4.25 % + kcl 10 meq + Na acetate 10 meq + K acetate 10 meq + Mag sulfate 1 gm + MVI 10ml + Trace 1ml at 80 ml/hr. 3) Pt is currently on ACCUCK q6h with coverage 4) on 10.20, KCL 20 meq IV bolus + Mag sulfate IV 1gm bolus given will continue to monitor electrolytes.
[2018-10-20] MEDS: POTASSIUM CHLORIDE 50 ML IV SCH ×2 (13:32→14:14)
[2018-10-20 16:00] VITALS: BP 150/89
[2018-10-20] MEDS ORDERED: IV FAT EMULSIONS 20% 250 ML IV SCH (18:00)
--- NOTE | 2018-10-20 18:00 | NUR ---
PT REMAINS ON MECHANICAL VENTILATION, NO VENT CHANGES MADE. PT TOLERATING VENT SETTINGS WELL. WILL CONTINUE TO MONITOR.
--- NOTE | 2018-10-20 19:40 | NUR ---
Received pt up in bed, eyes open, unable to follow simple commands. Gag and cough reflex present. Upper and lower extremities flaccid. Pt on trach with vent settings: AC 12, TV 500, PEEP 5, FIO2 30%. O2 sats up to 100%. Pt on tele monitor ST with HR 126. Pt shows no s/s of acute distress. WILMA PICC intact and patent running TPN 80cc/hr and Lipids 10cc/hr, NS TKO 10cc/hr. F/C in place. Assessment completed. Oral care done. Pt turned and repositioned. Aspiration and seizure precautions initiated. Comfort measures observed. Will continue to monitor pt and carry out all orders.
[2018-10-20 20:00] VITALS: BP 146/92
[2018-10-20] MEDS: IV NORMAL SALINE 250 ML IV PRN (20:43)
--- NOTE | 2018-10-20 22:30 | NUR ---
PT RECEIVED ON A TY VENT WITH THE FOLLOWING SETTINGS THAT ARE CHARTED ON THE MECHANICAL VENT NOTES. TRACH TUBE IS PATENT AND SECURED WITH TRACH TIES. HME WILL BE CHANGED LATER PER PT'S REQUEST. HHN TX GIVEN PER MD ORDER'S AND WAS TOLERATED WELL W/ NO ADVERSE REACTIONS. SUCTIONED SMALL AMOUNTS OF THIN WHITE/YELLOW SECRETIONS. VENT ALARMS ARE ON AND AUDIBLE. VENT IS PLUGGED IN THE RED OUTLET. BACK UP TRACH AND AMBU BAG IS BY BEDSIDE. PT IS TOLERATING CURRENT VENT SETTINGS WELL AT THIS TIME WITH NO SOB NOTED. WILL CONTINUE TO MONITOR.
[2018-10-21] VITALS (8 sets, daily range): BP systolic 134–167; BP diastolic 56–96
[2018-10-21] MEDS ORDERED: POTASSIUM ACETATE IV PRN ×8 (00:30)
[2018-10-21] MEDS ORDERED: POTASSIUM CHLORIDE IV PRN ×8 (00:30)
[2018-10-21] MEDS ORDERED: [UNRECOGNIZED DRUG - OTHER] IV PRN ×8 (00:30)
[2018-10-21] MEDS ORDERED: SODIUM ACETATE IV PRN ×8 (00:30)
[2018-10-21] MEDS: IPRATROPIUM BROMIDE 0.5 MG/2.5 ML NEBU NEB SCH ×4 (01:03→19:55)
[2018-10-21] MEDS: hydrALAZINE HCL 20 MG/1 ML VIAL IV PRN ×2 (03:24→11:03)
[2018-10-21] MEDS: METOCLOPRAMIDE HCL 10 MG/2 ML VIAL IV SCH ×4 (05:00→23:04)
[2018-10-21] MEDS: POLYVINYL ALCOHOL OPHT DROPS 15 ML BOTTLE EACHEYE SCH ×3 (05:00→21:38)
[2018-10-21] MEDS: BLOOD SUGAR DIAGNOSTIC 1 EACH STRIP VI SCH ×4 (05:06→23:05)
[2018-10-21 05:07] LABS: CREATININE 0.8 mg/dL (0.6-1.3); MAGNESIUM 1.7 mg/dL (1.8-2.4); PHOSPHOROUS 3.4 mg/dL (2.5-4.9); POTASSIUM 3.2 mmol/L (3.5-5.1)
[2018-10-21] MEDS: INSULIN REGULAR, HUMAN 300 UNIT/3 ML VIAL SQ PRN ×2 (05:07→12:39)
--- NOTE | 2018-10-21 05:18 | NUR ---
AM care rendered. Pt cleaned and kept dry. Oral care done with small amount of thin white secretions noted. Central line dressing changed. Wound care treatment as ordered. Pt turned and repositioned, bilateral heels offloading. Aspirations precautions and comfort measures observed. Will continue to monitor.
[2018-10-21 06:00] LABS: BASOPHILS % (AUTO) 0.2 % (0.0-2.0); EOSINOPHILS # (AUTO) 0.2 K/uL (0.0-0.7); EOSINOPHILS % (AUTO) 1.9 % (0.0-7.0); HEMATOCRIT 25.4 % (36.7-47.1); HEMOGLOBIN 8.2 g/dL (12.5-16.3); LYMPHOCYTES # (AUTO) 0.7 K/uL (20.0-40.0); LYMPHOCYTES % (AUTO) 8.4 % (20.5-51.5); MEAN CORPUSCULAR HGB CONC 32 g/dL (32.5-36.3); MEAN CORPUSCULAR VOLUME 80.3 fL (73.0-96.2); MONOCYTES # (AUTO) 0.7 K/uL (2.0-10.0); MONOCYTES % (AUTO) 8.5 % (0.0-11.0); NEUTROPHILS # (AUTO) 6.9 K/uL (1.8-8.9); PLATELET COUNT (AUTO) 271 K/uL (152-348); RED BLOOD CELL COUNT(AUTO) 3.16 MIL/uL (4.06-5.63); WHITE BLOOD COUNT (AUTO) 8.5 K/uL (3.6-10.2)
--- NOTE | 2018-10-21 06:22 | NUR ---
Paged client retention specialist LUIS ANTONIO GILL regarding critical lab values: ALBUMIN 1.5, MAGNESIUM 1.7, and POTASSIUM 3.2. Report given. No new orders received. MD states to follow up with AM medical staff. Continue to monitor pt.
--- NOTE | 2018-10-21 07:15 | NUR ---
RECEIVED PT ON TY VENT. PT HAS A SHILEY 6 DCT TRACH. TRACH IS PATENT AND SECURED VIA FOAM TRACH TIES. REFER TO RESPIRATORY VENT COMPLEX CHARTING FOR VENT SETTINGS. VENT ALARMS CHECKED, ARE ON AND AUDIBLE. AMBU BAG IS AT BEDSIDE. ORAL CARE DONE. SUCTIONED SMALL AMOUNT OF THICK, YELLOW SECRETIONS. AMBU BAG IS AT BEDSIDE. WILL CONTINUE TO MONITOR.
--- NOTE | 2018-10-21 07:30 | NUR ---
Paged GI DR PEARSON regarding procedure consent and to explain to family member of procedure. MD aware and states will call. Pending family member consent for EGD and PEG insertion.
--- NOTE | 2018-10-21 07:30 | NUR ---
RECIEVED PT LYING IN BED, NON-VERBAL BUT EYES SPONTANEOUSLY OPEN. ALL EXTREMETIES ARE FLACCID. PT IS RESPONSIVE TO DEEP SUCTIONING.
--- NOTE | 2018-10-21 07:45 | NUR ---
HR IS ST IN THE 126 , NO ECTOPICS. PICC LINE IS INTACT WILMA. TPN INFUSION RUNNING AT 80ML/HR, WITH LIPID INFUSION AT 10ML/HR ORDERED. NO APPARENT RESPIRATORY DISTRESS NOTED. VENT SETTING IS AC12, VT-500, PEEP-5, FIO2-100%. SUCTION VERY MINIMAL WHITISH SECRETIONS. LUNGS ARE CLEAR DIMINISHED AT THE BASES. O2 SAT IS 100 % NPO FOR EGD. ABDOMENIS DISTENDED AND FIRM WITH MID ABDOMENAL DRESSING INTACT. PRE-OP CHECKLIST DONE. CONSENT SIGNING STILL PENDING TILL MD TALKS TO THE . OR STAFF AWARE.
[2018-10-21] MEDS: FAMOTIDINE. 20 MG/2 ML VIAL IV SCH ×2 (08:40→20:17)
[2018-10-21] MEDS: SODIUM HYPOCHLORITE 0.125% 473 ML BOTTLE TP SCH ×3 (09:00→20:08)
[2018-10-21] MEDS: THERAHONEY GEL 1.5 OZ TUBE TOP SCH ×2 (09:00→20:07)
--- NOTE | 2018-10-21 09:00 | NUR ---
PT TO OR VIA [facility]. ACCOMPANIED BY OR STAFFS, RT. CONSENT WILL BE TAKEN CARED IN THE OR. CONDITION IS STABLE.
--- NOTE | 2018-10-21 11:00 | NUR ---
PT BROUGHT BACK BY RR STAFF VIA GURNEY AND WAS RECOVERED IN THE ROOM BY RR STAFF.
[2018-10-21] MEDS: LEVETIRACETAM IV 1,500 MG in IV DEXTROSE 5% 100 ML IV SCH ×2 (11:03→20:09)
[2018-10-21 11:07] LABS: CALCITRIOL VIT D,1,25 DIHYDROX 71.7 pg/mL (19.9-79.3)
[2018-10-21] MEDS ORDERED: PROPOFOL 200 MG/20 ML BOTTLE IV ONE (11:27)
[2018-10-21] MEDS ORDERED: SIMETHICONE 40 MG/0.6 ML, 30ML BOTTLE MC ONE (11:27)
[2018-10-21] MEDS ORDERED: IV LACTATED RINGERS SOLUTION 1,000 ML BAG IV ONE (11:27)
--- NOTE | 2018-10-21 11:30 | NUR ---
RECIEVED REPORT FROM SHAKA MOORE. PT IS POST EGD AND PLACEMENT OF GJT. SITE LOOKS GOOD. CONDITION IS STABLE.
--- NOTE | 2018-10-21 12:30 | NUR ---
DR KAREN CABELLOEYED TO RESUME TUBE FEEDING PER GI MD AND OK TO USE JT PEG.
--- NOTE | 2018-10-21 13:30 | NUR ---
WEAN OFF TPN TO FINISH AND DC'D LIPIDS. STARTED TUBE FEEDING VITAL AF 1.2 AT 10ML/HR. NO RESIDUAL NOTED AT THIS TIME.
[2018-10-21] MEDS ORDERED: MAGNESIUM SULFATE/D5W 100 ML IV SCH (14:00)
[2018-10-21] MEDS ORDERED: VITAL AF 1.2 1,000 ML LIQUID JT PRN (14:15)
[2018-10-21] MEDS: POTASSIUM CHLORIDE 50 ML IV SCH ×2 (15:35→16:33)
[2018-10-21] MEDS: VITAL AF 1.2 1,000 ML LIQUID JT PRN (15:40)
--- NOTE | 2018-10-21 16:30 | NUR ---
PM CARE RENDERED AND ABDOMENAL DRESSING CHANGED.
[2018-10-21] MEDS ORDERED: IV FAT EMULSIONS 20% 250 ML IV SCH (18:00)
--- NOTE | 2018-10-21 19:45 | NUR ---
Received pt in bed, eyes open, nonverbal, unable to follow commands. Upper and lower extremities flaccid. Pt on trach with vent settings: AC 12, TV 500, PEEP 5, FIO2 30%. Pt O2 sat 99%. No acute respiratory distress noted. GT feedings VITAL AF 1.2 running at 20 cc/hr. Residuals 10cc at this time. F/C in place. PICC line WILMA intact and patent - NS TKO running at 10cc/hr. Full assessment completed. Pt turned and repositioned, skin check done. Aspiration and seizure precautions implemented. Will continue to monitor pt.
--- NOTE | 2018-10-21 19:55 | NUR ---
RECEIVED PT ON TY VENT AC 12 VT 500 PEEP 5 FIO2 30%. TRACH IN PLACED AND SECURED WITH TRACH TIE. BACK UP TRACH AND AMBU BAG AT BEDSIDE. IN LINE TX GIVEN ORDERED. SUCTION PRN. TRACH CARE DONE WITHOUT COMPLICATIONS NOTED. VENT CHECKED, ALARMS WORKING WELL AND AUDIBLE. NO DISTRESS NOTED AT THIS TIME. WILL CONTINUE TO MONITOR.
--- NOTE | 2018-10-21 20:00 | NUR ---
Pt TEMP 95.2 F at this time. MAICOL FERREIRA placed. Continue to monitor temperature levels.
--- NOTE | 2018-10-21 21:06 | NUR ---
TEMP 95.2 rectally Addendum: 10/21/18 at 2108 by DIMA LEAL RN SEE PREVIOUS NOTE - MAICOL FERREIRA IN PLACE
--- NOTE | 2018-10-21 22:15 | NUR ---
WINDOWS SECURITY ANALYST, DR MOSELEY, here to evaluate and see pt. Report given. made aware of pt's HR ranging from 120s - 130s. No new orders received. Will continue to monitor pt.
[2018-10-21] MEDS: IV NORMAL SALINE 250 ML IV PRN (23:05)
[2018-10-22] VITALS: BP 145/95
--- NOTE | 2018-10-22 00:30 | NUR ---
Rechecked temp, 97.5 degrees F orally at this time. Will continue to monitor pt and temperature levels.
[2018-10-22] MEDS: IPRATROPIUM BROMIDE 0.5 MG/2.5 ML NEBU NEB SCH ×4 (01:06→19:09)
--- NOTE | 2018-10-22 05:15 | NUR ---
AM care provided. Oral care done, pt noted to have moderate amount of thin to thick white secretions. Pt cleaned and washed, turned and repositioned. HOB elevated at all times. Aspiration precautions and safety measures maintained. No s/s of acute respiratory distress noted. VSS, temp WNL. Continue to monitor pt.
[2018-10-22 05:17] LABS: CREATININE 0.7 mg/dL (0.6-1.3); MAGNESIUM 1.7 mg/dL (1.8-2.4); PHOSPHOROUS 4.1 mg/dL (2.5-4.9); POTASSIUM 3.7 mmol/L (3.5-5.1)
[2018-10-22 05:36] LABS: BASOPHILS % (AUTO) 0.3 % (0.0-2.0); EOSINOPHILS # (AUTO) 0.1 K/uL (0.0-0.7); EOSINOPHILS % (AUTO) 1.5 % (0.0-7.0); HEMATOCRIT 27.7 % (36.7-47.1); LYMPHOCYTES # (AUTO) 0.8 K/uL (20.0-40.0); LYMPHOCYTES % (AUTO) 8.3 % (20.5-51.5); MEAN CORPUSCULAR HEMOGLOBIN 25.9 uug (23.8-33.4); MEAN CORPUSCULAR HGB CONC 33 g/dL (32.5-36.3); MEAN CORPUSCULAR VOLUME 79.6 fL (73.0-96.2); MONOCYTES # (AUTO) 0.8 K/uL (2.0-10.0); MONOCYTES % (AUTO) 8.6 % (0.0-11.0); NEUTROPHILS # (AUTO) 7.5 K/uL (1.8-8.9); NEUTROPHILS % (AUTO) 81.3 % (38.5-71.5); PLATELET COUNT (AUTO) 296 K/uL (152-348); RED BLOOD CELL COUNT(AUTO) 3.48 MIL/uL (4.06-5.63); WHITE BLOOD COUNT (AUTO) 9.2 K/uL (3.6-10.2)
[2018-10-22] MEDS: POLYVINYL ALCOHOL OPHT DROPS 15 ML BOTTLE EACHEYE SCH ×3 (05:51→21:08)
[2018-10-22] MEDS: METOCLOPRAMIDE HCL 10 MG/2 ML VIAL IV SCH ×4 (05:51→23:26)
[2018-10-22] MEDS: BLOOD SUGAR DIAGNOSTIC 1 EACH STRIP VI SCH ×4 (05:51→23:26)
[2018-10-22 05:59] LABS: BAND % (MANUAL) 1 % (0-10); LYMPHOCYTES % (MANUAL) 8 % (20-40); METAMYELOCYTES % 1 % (0-1); MONOCYTES % (MANUAL) 2 % (2-10); NEUTROPHILS % (MANUAL) 88 % (42-75)
[2018-10-22 06:09] VITALS: BP 143/91
[2018-10-22] MEDS: METOPROLOL TARTRATE 5 MG/5 ML VIAL IVP PRN ×4 (06:52→23:27)
--- NOTE | 2018-10-22 07:08 | NUR ---
PATIENT RECEIVED ON VENT WITH SETTINGS OF AC12, VT500, +5, 30% FIO2. PATIENT HAS A SHILEY [address], MIDLINE AND SECURED WITH A TRACH TIE. VENT IS PLUGGED INTO RED EMERGENCY OUTLET. VENT ALARMS ARE ON AND AUDIBLE. AMBUBAG/BACK UP TRACH AT BEDSIDE. NO SOB NOTED. B/S RHONCHI BILATERALLY. TXS WILL BE GIVEN ORDERED. WILL SUCTION PRN AND MONITOR CLOSELY, WILL REPORT ANY CHANGES.
[2018-10-22 08:00] VITALS: BP 133/86
[2018-10-22] MEDS: FAMOTIDINE. 20 MG/2 ML VIAL IV SCH ×2 (08:14→20:00)
[2018-10-22] MEDS: SODIUM HYPOCHLORITE 0.125% 473 ML BOTTLE TP SCH ×3 (08:14→20:05)
[2018-10-22] MEDS: THERAHONEY GEL 1.5 OZ TUBE TOP SCH ×2 (08:15→20:03)
[2018-10-22 08:27] LABS: ABG BASE EXCESS 1.7 mmol/L; ABG HCO3 24.8 mmol/L; ABG PCO2 33.4 mmHg (35.0-45.0); ABG PH 7.489 (7.350-7.450); ABG PO2 96.9 mmHg (75.0-100.0); ABG SITE RIGHT RADIAL; ABG TOTAL HEMOGLOBIN 9.9 G/dL (13.5-18.0); COHb 1.3 % (0.5-1.5); MetHb 0.4 % (0.0-1.5); O2Hb 96.3 % (94.0-97.0); VENT MODE VENT - A/C; VT, ABG 500 mL
[2018-10-22] MEDS: LEVETIRACETAM IV 1,500 MG in IV DEXTROSE 5% 100 ML IV SCH ×2 (08:56→20:00)
--- NOTE | 2018-10-22 10:00 | NUR ---
Spoke with Dr. Gongora on the telephone. Full report given. No new orders received. Pt to continue feedings as ramiro. To keep HOB elevated and feeding to be connected to J-tube as ordered by .
--- NOTE | 2018-10-22 10:46 | NUR ---
Dr. Interiano here to see pt. Full report given. New orders received.
[2018-10-22] MEDS: MORPHINE SULFATE 2 MG/1 ML DISP.SYRIN IM PRN ×2 (10:54→20:38)
--- NOTE | 2018-10-22 11:50 | NUR ---
Radiology here for KUB.
[2018-10-22 12:00] VITALS: BP 128/85
[2018-10-22] MEDS: VITAL AF 1.2 1,000 ML LIQUID JT PRN (12:00)
[2018-10-22] MEDS: MAGNESIUM SULFATE/D5W 100 ML IV SCH ×2 (12:05→13:09)
--- NOTE | 2018-10-22 12:40 | NUR ---
Dr. Beltrán here to see pt. Full report given. New orders received.
--- NOTE | 2018-10-22 14:25 | NUR ---
Dr. Jimenez here to see pt. Full report given. New orders to be received.
[2018-10-22 16:00] VITALS: BP 144/80
--- NOTE | 2018-10-22 18:25 | NUR ---
Pt noted to be vomiting. Tube feeding turned off per protocol. HOB kept elevated. Pt suctioned.
--- NOTE | 2018-10-22 18:28 | NUR ---
Call put in for Dr. Gongora. Awaiting return call.
--- NOTE | 2018-10-22 18:53 | NUR ---
Spoke with Dr. Gongora on the telephone regarding pt's vomiting and tube feeding intake. MD stated to keep feeding on hold for now and MD to see pt tomorrow.
--- NOTE | 2018-10-22 19:20 | NUR ---
Received patient lying in bed. non-verbally responsive to tactile stimuli. GT and JT clamped. Abdomen firm and distended. Patient NPO. Suction secretion PRN and able to obtain reddish/brownish discharge. Dressing on abdominal incision site clean and dry. Tracheostomy with vent, with AC 12, TV 500, FIO2 30% and PEEP 5. O2 sat at 100%. Patient afebrile at this time with temp of 99.0 orally. Sinus tachy on tele at 132/min. PICC line on right upper arm intact and patent. TKO. FC intact and draining via gravity. Urine yellow in color. DVT pump to riley. leg. Generalized edema. Riley UE and riley LE kept elevated with pillows. Isolation precaution observed. Continue to monitor.
--- NOTE | 2018-10-22 19:30 | NUR ---
Received call from patient daughter Vignesh and updated on patient current condition and states understanding.
[2018-10-22 20:00] VITALS: BP 136/90
[2018-10-22] MEDS: METOPROLOL TARTRATE 50 MG TABLET PEG SCH (20:32)
--- NOTE | 2018-10-22 20:32 | NUR ---
Patient Lopressor 50mg tablet via peg tube held. Dr. Gongora with order to hold feeding/flushing via JT
[2018-10-22] MEDS: IV NORMAL SALINE 250 ML IV PRN (22:06)
--- NOTE | 2018-10-22 23:01 | NUR ---
Patient received on Muñoz ventilator with ordered vent settings of A/C-12, VT-500, PEEP+5, FIO2-30%. No SOB noted at this time. He is trached with a Shiley 6DCT, MANUFACTURING ASSISTANT used for cuff inflation. Inline treatments administered and tolerated well. No adverse reactions noted. Oral/ Trach care rendered. No complications noted. Ambu bad and spare trach are at bedside. Alarm parameters are on/Audible
[2018-10-23] VITALS: BP 135/80
[2018-10-23] MEDS: IPRATROPIUM BROMIDE 0.5 MG/2.5 ML NEBU NEB SCH ×4 (01:32→20:48)
[2018-10-23] MEDS: MORPHINE SULFATE 2 MG/1 ML DISP.SYRIN IM PRN ×3 (02:28→13:27)
[2018-10-23 04:00] VITALS: BP 140/86
[2018-10-23] MEDS: POLYVINYL ALCOHOL OPHT DROPS 15 ML BOTTLE EACHEYE SCH ×3 (05:09→21:42)
[2018-10-23] MEDS: METOCLOPRAMIDE HCL 10 MG/2 ML VIAL IV SCH ×4 (05:09→23:01)
[2018-10-23] MEDS: BLOOD SUGAR DIAGNOSTIC 1 EACH STRIP VI SCH ×4 (05:15→23:01)
[2018-10-23 05:26] LABS: BASOPHILS % (AUTO) 0.2 % (0.0-2.0); EOSINOPHILS # (AUTO) 0.1 K/uL (0.0-0.7); EOSINOPHILS % (AUTO) 1.2 % (0.0-7.0); HEMATOCRIT 26.2 % (36.7-47.1); HEMOGLOBIN 8.6 g/dL (12.5-16.3); LYMPHOCYTES # (AUTO) 1.2 K/uL (20.0-40.0); LYMPHOCYTES % (AUTO) 13.2 % (20.5-51.5); MEAN CORPUSCULAR HEMOGLOBIN 25.9 uug (23.8-33.4); MEAN CORPUSCULAR HGB CONC 33 g/dL (32.5-36.3); MEAN CORPUSCULAR VOLUME 78.7 fL (73.0-96.2); MONOCYTES # (AUTO) 0.9 K/uL (2.0-10.0); MONOCYTES % (AUTO) 9.9 % (0.0-11.0); NEUTROPHILS # (AUTO) 7.1 K/uL (1.8-8.9); NEUTROPHILS % (AUTO) 75.5 % (38.5-71.5); PLATELET COUNT (AUTO) 285 K/uL (152-348); RED BLOOD CELL COUNT(AUTO) 3.33 MIL/uL (4.06-5.63); WHITE BLOOD COUNT (AUTO) 9.5 K/uL (3.6-10.2)
[2018-10-23 05:28] LABS: CREATININE 0.8 mg/dL (0.6-1.3); MAGNESIUM 1.9 mg/dL (1.8-2.4); PHOSPHOROUS 4.4 mg/dL (2.5-4.9); POTASSIUM 3.7 mmol/L (3.5-5.1)
[2018-10-23] MEDS: METOPROLOL TARTRATE 5 MG/5 ML VIAL IVP PRN (05:28)
--- NOTE | 2018-10-23 06:00 | NUR ---
Patient appears comfortable in bed. Eyes open to tactile stimuli. HOB on semi fowlers position. GT and JT clamped. Dressing changed on abdominal incision site, remains clean and intact. Tracheostomy with vent, with AC 12, TV 500, FIO2 30 and PEEP 5. O2 sat at 99%. Suction secretions PRN, able to obtain small amount of whitish secretions. Afebrile. Sinus tachy on tele at 117/min. PICC line on right upper arm intact and patent. DVT pump to ashanti. leg. Dressing changed to wound on sacral area, remains clean and intact. FC intact and draining via gravity with yellow urine output. Generalized edema. Elevated ashanti UE and ashanti LE with pillows. Isolation precaution maintained. Turn and reposition for q2H. Continue to monitor.
[2018-10-23 06:24] LABS: EOSINOPHILS % (MANUAL) 1 % (0-8); LYMPHOCYTES % (MANUAL) 17 % (20-40); MONOCYTES % (MANUAL) 8 % (2-10); NEUTROPHILS % (MANUAL) 74 % (42-75)
--- NOTE | 2018-10-23 07:30 | NUR ---
Received pt in bed on ventilator A/C12, tv500,30% FIO2% 2, Peep+5. saturation wnl. No SOB. sinus tachycardia in the mid-20's. Afebrile. PICC line RUE patent.
[2018-10-23 08:00] VITALS: BP 145/76
[2018-10-23] MEDS: METOPROLOL TARTRATE 50 MG TABLET PEG SCH ×2 (08:50→20:04)
[2018-10-23] MEDS: LEVETIRACETAM IV 1,500 MG in IV DEXTROSE 5% 100 ML IV SCH ×2 (08:51→20:04)
[2018-10-23] MEDS: FAMOTIDINE. 20 MG/2 ML VIAL IV SCH ×2 (08:51→20:03)
[2018-10-23] MEDS: THERAHONEY GEL 1.5 OZ TUBE TOP SCH ×2 (08:52→20:06)
[2018-10-23] MEDS: SODIUM HYPOCHLORITE 0.125% 473 ML BOTTLE TP SCH ×3 (08:52→20:06)
--- NOTE | 2018-10-23 09:02 | NUR ---
Attending Physician Megha in the unit to examine patient, full report given orders to continue with current care plan received.
[2018-10-23 12:00] VITALS: BP 115/70
--- NOTE | 2018-10-23 17:00 | NUR ---
Pulmonary services, Dr. Beltrán in the unit to examine patient, full report given. Orders to continue with care plan received.
--- NOTE | 2018-10-23 18:00 | NUR ---
A call to Dr. Cleveland after receiving a call from Pt's daughter to inquire about care plan regarding J-tube and feeding. As stated Dr. cesar "I'll remind GI physician to follow up and give family a call".
--- NOTE | 2018-10-23 19:14 | NUR ---
Received patient lying in bed. Non-verbally responsive but opens his eyes to tactile stimuli. GT and JT clamped. Abdomen firm and distended with hypoactive bowel sounds. Patient NPO. Dressing on abdominal incision site clean and dry. Tracheostomy with vent, with AC 12, TV 500, FIO2 30% and PEEP 5. O2 sat at 100%. Lung sound CTA. Patient afebrile at this time with temp of 98.3 orally. Sinus tachy on tele at 114/min. PICC line on right upper arm intact and patent. TKO. FC intact and draining via gravity. Urine yellow in color with scant amount of sediments. DVT pump to riley. leg. Generalized edema. Riley UE and riley LE kept elevated with pillows. Isolation precaution observed. Continue to monitor.
--- NOTE | 2018-10-23 19:30 | NUR ---
All documentation and data of rock Harvey RN is supervised by TERESA DE JESUS.
[2018-10-23 20:00] VITALS: BP 135/88
[2018-10-23] MEDS: IV NORMAL SALINE 250 ML IV PRN (20:06)
--- NOTE | 2018-10-23 20:25 | NUR ---
Patient seen by Dr. Gongora to check GT and JT, with order to start Vital AF at 10cc/hr and increase to 20cc/hr if patient tolerating tube feeding.
[2018-10-23] MEDS: VITAL AF 1.2 1,000 ML LIQUID JT PRN (20:38)
--- NOTE | 2018-10-23 20:49 | NUR ---
Patient seen by Alyson Guy updated on pt condition. Order to discontinue isolation precaution.
--- NOTE | 2018-10-23 21:50 | NUR ---
and daughter Hereford visiting and at bedside.
--- NOTE | 2018-10-23 23:40 | NUR ---
Patient seen by Dr. Jimenez, with no new order given.
[2018-10-24] VITALS: BP 119/71
[2018-10-24] MEDS: IPRATROPIUM BROMIDE 0.5 MG/2.5 ML NEBU NEB SCH ×4 (02:23→20:43)
--- NOTE | 2018-10-24 02:25 | NUR ---
PT ON CONT TY VENT WITH SHILEY #[address] AND SECURED, WITH SAME CURRENT VENT SETTINGS, A/C 12, VT 500ML, PEEP5, 30%, PT WITH WEAK COUGH EFFORT, SUCTIONED LIGHT PALE YELL TINGE SECRETIONS, TRACH CARE DONE, ALL VENT ALARMS GOOD, NEB INLINE X 2 WITH ATROVENT INLINE TOLL WELL, NO VENT CHANGES MADE, CHECK CUFF, CHANGE HME, AMBU BAG AT BEDSIDE, PT STABLE. Emily STRAUSSP Addendum: 10/24/18 at 0227 by PAIGE HOWELL RT Amended: Links added.
[2018-10-24 04:00] VITALS: BP 123/72
[2018-10-24 04:56] LABS: BASOPHILS % (AUTO) 0.4 % (0.0-2.0); EOSINOPHILS # (AUTO) 0.2 K/uL (0.0-0.7); EOSINOPHILS % (AUTO) 2.5 % (0.0-7.0); HEMATOCRIT 23.9 % (36.7-47.1); HEMOGLOBIN 7.8 g/dL (12.5-16.3); LYMPHOCYTES % (AUTO) 14.3 % (20.5-51.5); MEAN CORPUSCULAR HEMOGLOBIN 25.7 uug (23.8-33.4); MEAN CORPUSCULAR HGB CONC 33 g/dL (32.5-36.3); MEAN CORPUSCULAR VOLUME 79.1 fL (73.0-96.2); MONOCYTES # (AUTO) 0.7 K/uL (2.0-10.0); MONOCYTES % (AUTO) 9.6 % (0.0-11.0); NEUTROPHILS # (AUTO) 5.2 K/uL (1.8-8.9); NEUTROPHILS % (AUTO) 73.2 % (38.5-71.5); PLATELET COUNT (AUTO) 268 K/uL (152-348); RED BLOOD CELL COUNT(AUTO) 3.02 MIL/uL (4.06-5.63); WHITE BLOOD COUNT (AUTO) 7.1 K/uL (3.6-10.2)
[2018-10-24 05:12] LABS: CREATININE 0.8 mg/dL (0.6-1.3); MAGNESIUM 1.9 mg/dL (1.8-2.4); PHOSPHOROUS 4.3 mg/dL (2.5-4.9); POTASSIUM 3.4 mmol/L (3.5-5.1)
[2018-10-24] MEDS: METOCLOPRAMIDE HCL 10 MG/2 ML VIAL IV SCH ×3 (05:35→17:37)
[2018-10-24] MEDS: BLOOD SUGAR DIAGNOSTIC 1 EACH STRIP VI SCH ×3 (05:35→17:41)
[2018-10-24] MEDS: POLYVINYL ALCOHOL OPHT DROPS 15 ML BOTTLE EACHEYE SCH ×3 (05:36→22:14)
[2018-10-24 05:39] LABS: BAND % (MANUAL) 2 % (0-10); EOSINOPHILS % (MANUAL) 2 % (0-8); LYMPHOCYTES % (MANUAL) 15 % (20-40); MONOCYTES % (MANUAL) 7 % (2-10); NEUTROPHILS % (MANUAL) 74 % (42-75)
--- NOTE | 2018-10-24 05:40 | NUR ---
AM care provided, pt suctioned with moderate amount of thin to thick secretions. Pt kept clean and dry, wound care treatment done as ordered. Pt turned and repositioned. HOB elevated at all times. Aspiration and seizure precautions observed. See nursing flowsheets/interventions for data. Continue to monitor.
--- NOTE | 2018-10-24 07:30 | NUR ---
Upon initial assessment patient dressing noted to be soak in yellowish drainage similar to feeding. Dressing changed PP. Attending call to be notified. Feeding resumed as no residual obtained at this time.
[2018-10-24 08:00] VITALS: BP 128/80
[2018-10-24] MEDS: METOPROLOL TARTRATE 50 MG TABLET PEG SCH ×2 (08:11→21:13)
[2018-10-24] MEDS: MORPHINE SULFATE 2 MG/1 ML DISP.SYRIN IM PRN ×2 (08:12→15:45)
[2018-10-24] MEDS: FAMOTIDINE. 20 MG/2 ML VIAL IV SCH ×2 (08:16→21:09)
[2018-10-24] MEDS: THERAHONEY GEL 1.5 OZ TUBE TOP SCH ×2 (08:18→21:11)
[2018-10-24] MEDS: SODIUM HYPOCHLORITE 0.125% 473 ML BOTTLE TP SCH ×3 (08:18→21:12)
[2018-10-24] MEDS: LEVETIRACETAM IV 1,500 MG in IV DEXTROSE 5% 100 ML IV SCH ×2 (08:45→21:09)
--- NOTE | 2018-10-24 10:27 | NUR ---
Attending physician Dr. Cleveland in the unit to examine patient, and with her present abdominal dressing removed to examine abdominal surgical incision. Dressing one more time noted to be soak in yellowish milky drainage that looks like feeding. Drainage also noted to be coming out of left upper old BRENDAN tube insertion hole. Orders to stop feeding received. As stated by . "I'll text surgeon Dr. Moe to follow up with patient. Dressing changed at this time.
[2018-10-24 12:00] VITALS: BP 126/75
[2018-10-24] MEDS ORDERED: POTASSIUM CHLORIDE 20 MEQ POWDER PACKET GT ONE (15:00)
[2018-10-24 16:00] VITALS: BP 124/78
[2018-10-24] MEDS ORDERED: DIATR MEGLU/DIATRIZOATE SODIUM 30 ML SOLUTION ONE (16:35)
--- NOTE | 2018-10-24 17:43 | NUR ---
PT REMAINS ON MECHANICAL VENTILATION, NO CHANGES MADE. DOING WELL ON CURRENT VENT SETTINGS. BVM AND BACK UP TRACH AT BEDSIDE. WILL CONTINUE TO MONITOR.
--- NOTE | 2018-10-24 17:43 | NUR ---
A this time a total of 800cc gastrografin infused through G-tube as ordered by Kassy Mayfield. Patient will be taken down for CT abdomen within the next 3 Hours as informed by windows technical specialist .
[2018-10-24 20:00] VITALS: BP 129/91
[2018-10-24] MEDS: METOPROLOL TARTRATE 5 MG/5 ML VIAL IVP PRN (21:09)
--- NOTE | 2018-10-24 22:00 | NUR ---
pt went down to ct scan of the abd pelvis done results called to no new order pt abd dsg was changed no abnorm. drainage noted pt is afrebile hr remains st as normal comfort and safety maintained as order without incident
[2018-10-25] VITALS (7 sets, daily range): BP systolic 113–131; BP diastolic 68–81
[2018-10-25] MEDS: METOCLOPRAMIDE HCL 10 MG/2 ML VIAL IV SCH ×5 (00:18→23:18)
[2018-10-25] MEDS: IPRATROPIUM BROMIDE 0.5 MG/2.5 ML NEBU NEB SCH ×4 (02:11→19:31)
--- NOTE | 2018-10-25 02:55 | NUR ---
PT ON CONT TY VENT WITH SHILEY # [address], WITH SAME CURRENT VENT SETTINGS, A/C 12, VT 500ML, PEEP 5, 30%, PT DOES ASSIST AT TIMES, FAIR COUGH EFFORT, O2 TRANSPORT TO CT SCAN, IN BEGINNING OF SHIFT WITH RT ASSIST, SUCTIONED LIGHT PALE YELL TINGE SECRETIONS, CHECK CUFF, TRACE CARE DONE, CHANGE HME, AND CHECK CUFF, NEB INLINE WITH ATROVENT TOLL WELL, NO VENT CHANGES MADE, AMBU BAG AT BEDSIDE, PT STABLE . Emily HOWELL FEDERAL APPELLATE LAW CLERK Addendum: 10/25/18 at 0258 by PAIGE HOWELL RT Amended: Links added.
[2018-10-25 05:02] LABS: BASOPHILS % (AUTO) 0.3 % (0.0-2.0); EOSINOPHILS # (AUTO) 0.2 K/uL (0.0-0.7); EOSINOPHILS % (AUTO) 2.2 % (0.0-7.0); HEMATOCRIT 24.4 % (36.7-47.1); HEMOGLOBIN 7.9 g/dL (12.5-16.3); LYMPHOCYTES # (AUTO) 0.9 K/uL (20.0-40.0); LYMPHOCYTES % (AUTO) 11.6 % (20.5-51.5); MEAN CORPUSCULAR HEMOGLOBIN 25.6 uug (23.8-33.4); MEAN CORPUSCULAR HGB CONC 32 g/dL (32.5-36.3); MEAN CORPUSCULAR VOLUME 78.9 fL (73.0-96.2); MONOCYTES # (AUTO) 0.7 K/uL (2.0-10.0); MONOCYTES % (AUTO) 9.3 % (0.0-11.0); NEUTROPHILS # (AUTO) 5.8 K/uL (1.8-8.9); NEUTROPHILS % (AUTO) 76.6 % (38.5-71.5); PLATELET COUNT (AUTO) 267 K/uL (152-348); WHITE BLOOD COUNT (AUTO) 7.5 K/uL (3.6-10.2)
[2018-10-25 05:13] LABS: CREATININE 0.9 mg/dL (0.6-1.3); MAGNESIUM 1.8 mg/dL (1.8-2.4); PHOSPHOROUS 4.1 mg/dL (2.5-4.9); POTASSIUM 3.5 mmol/L (3.5-5.1)
[2018-10-25 05:35] LABS: EOSINOPHILS % (MANUAL) 1 % (0-8); LYMPHOCYTES % (MANUAL) 15 % (20-40); MONOCYTES % (MANUAL) 7 % (2-10); NEUTROPHILS % (MANUAL) 77 % (42-75)
[2018-10-25] MEDS: POLYVINYL ALCOHOL OPHT DROPS 15 ML BOTTLE EACHEYE SCH ×3 (05:58→21:50)
[2018-10-25] MEDS: BLOOD SUGAR DIAGNOSTIC 1 EACH STRIP VI SCH ×5 (06:00→23:55)
--- NOTE | 2018-10-25 07:10 | NUR ---
PT RECEIVED TRACH TO VENT ON CMV, PT IS ON A TY VENT ON SETTINGS OF A/C 12, VT 500, 30% FIO2 AND +5 PEEP. SHILEY #6 TRACH IS PATENT AND SECURE. VENT PARAMETERS AND ALARMS CHECKED. ALARMS ARE AUDIBLE. IN-LINE TX TOLERATED WELL, NO ADVERSE REACTION NOTED. PT IS TOLERATING VENT SETTINGS WELL, NO RESP. DISTRESS NOTED AT THIS TIME. AMBU-BAG AND BACK-UP TACH AT BEDSIDE. VENT PLUGGED INTO RED OUTLET. SUCTION PRN. WILL CONTINUE TO MONITOR.
--- NOTE | 2018-10-25 07:30 | NUR ---
Nursing Note: Received patient stable. Report received all questions answered by off going nurse
[2018-10-25] MEDS: FAMOTIDINE. 20 MG/2 ML VIAL IV SCH ×2 (08:57→21:46)
[2018-10-25] MEDS: METOPROLOL TARTRATE 50 MG TABLET PEG SCH ×2 (08:57→21:46)
[2018-10-25] MEDS: LEVETIRACETAM IV 1,500 MG in IV DEXTROSE 5% 100 ML IV SCH ×2 (08:57→21:46)
[2018-10-25] MEDS: THERAHONEY GEL 1.5 OZ TUBE TOP SCH ×2 (08:58→21:49)
[2018-10-25] MEDS: SODIUM HYPOCHLORITE 0.125% 473 ML BOTTLE TP SCH ×3 (08:58→21:51)
--- NOTE | 2018-10-25 10:00 | NUR ---
Nursing Note: Pt seen by Dr. Hank Huang
[2018-10-25] MEDS: MORPHINE SULFATE 2 MG/1 ML DISP.SYRIN IM PRN ×2 (10:18→14:35)
[2018-10-25] MEDS ORDERED: LIDOCAINE HCL 1% 20 ML VIAL ONE (13:15)
--- NOTE | 2018-10-25 14:00 | NUR ---
Nursing Note: Pt taken down for ultra and CT guided abscess drainage
--- NOTE | 2018-10-25 18:33 | NUR ---
Nursing Note: Pt stable after procedure draining 1000cc of purulent drainage
--- NOTE | 2018-10-25 20:00 | NUR ---
rounds made patient in bed open eyes spontaneously but doesn't follow commands . upper and lower extremities flaccid . trach to vent, tolerating vent settings ac 12/500/30% peep 5,suction via ett and via mouth with thin to thick secretion whitish to grayish in color . hob up .right perihepatic drain patent as per day rn with 1000 ml of purulent drainage continue to monitor and will changed bag if needed . f/c to bsd with yellowish urine . scds to ble.turned and reposition patient .
[2018-10-25] MEDS: FLUCONAZOLE 200 MG/NS 100ML IV 100 MG in PREMIXED 1 EACH IV SCH (21:30)
[2018-10-25] MEDS ORDERED: PIPERACILLIN/TAZOBACTAM/D5W 50 ML IV ONE (22:53)
[2018-10-25] MEDS ORDERED: FLUCONAZOLE 200 MG/100 ML PIGGYBACK ONE ×2 (22:56→23:00)
[2018-10-25] MEDS: PIPERACILLIN/TAZOBACTAM/D5W 50 ML IV SCH (23:18)
[2018-10-26] VITALS (12 sets, daily range): BP systolic 112–134; BP diastolic 56–75
--- NOTE | 2018-10-26 | NUR ---
f/s 97 no coverage given ,turned and reposition patient .hob up .
[2018-10-26] MEDS: IPRATROPIUM BROMIDE 0.5 MG/2.5 ML NEBU NEB SCH ×4 (00:57→19:09)
[2018-10-26] MEDS: IV NORMAL SALINE 250 ML IV PRN (02:51)
[2018-10-26 05:24] LABS: BASOPHILS % (AUTO) 0.3 % (0.0-2.0); EOSINOPHILS # (AUTO) 0.1 K/uL (0.0-0.7); HEMATOCRIT 24.3 % (36.7-47.1); HEMOGLOBIN 7.8 g/dL (12.5-16.3); LYMPHOCYTES # (AUTO) 0.8 K/uL (20.0-40.0); LYMPHOCYTES % (AUTO) 9.9 % (20.5-51.5); MEAN CORPUSCULAR HEMOGLOBIN 25.2 uug (23.8-33.4); MEAN CORPUSCULAR HGB CONC 32 g/dL (32.5-36.3); MEAN CORPUSCULAR VOLUME 78.9 fL (73.0-96.2); MONOCYTES # (AUTO) 0.6 K/uL (2.0-10.0); MONOCYTES % (AUTO) 7.6 % (0.0-11.0); NEUTROPHILS # (AUTO) 6.1 K/uL (1.8-8.9); NEUTROPHILS % (AUTO) 80.2 % (38.5-71.5); PLATELET COUNT (AUTO) 289 K/uL (152-348); RED BLOOD CELL COUNT(AUTO) 3.08 MIL/uL (4.06-5.63); WHITE BLOOD COUNT (AUTO) 7.6 K/uL (3.6-10.2)
[2018-10-26 05:32] LABS: CREATININE 0.8 mg/dL (0.6-1.3); MAGNESIUM 1.7 mg/dL (1.8-2.4)
[2018-10-26] MEDS: METOCLOPRAMIDE HCL 10 MG/2 ML VIAL IV SCH ×4 (05:42→23:16)
[2018-10-26] MEDS: POLYVINYL ALCOHOL OPHT DROPS 15 ML BOTTLE EACHEYE SCH ×3 (05:52→21:34)
[2018-10-26] MEDS ORDERED: PIPERACILLIN/TAZOBACTAM/D5W 50 ML IV ONE (05:53)
[2018-10-26] MEDS: BLOOD SUGAR DIAGNOSTIC 1 EACH STRIP VI SCH ×4 (05:55→23:15)
[2018-10-26] MEDS: PIPERACILLIN/TAZOBACTAM/D5W 50 ML IV SCH (06:22)
--- NOTE | 2018-10-26 07:25 | NUR ---
PT REMAIN ON CONTINUOUS TY VENT AC 12 VT 500 PEEP 5 FIO2 30%. TRACH IN PLACED AND SECURED WITH TRACH TIE. BACK UP TRACH AND AMBU BAG AT BEDSIDE. IN LINE TX GIVEN WITH UD ATROVENT. TOLERATED TX WELL WITHOUT ADVERSE REACTION NOTED. SUCTION PRN. VENT CHECKED, ALARMS WORKING WELL AND AUDIBLE. NO DISTRESS NOTED AT THIS TIME. WILL CONTINUE TO MONITOR.
--- NOTE | 2018-10-26 07:30 | NUR ---
report received from Chetna. 63 yr old male was admitted to [facility] for sepsis and UTI. Patient has trach to vent tv 500. ac12 peep 5cm. has GJ tubes for meds and fdg. tube held for 2 days secondary to vomiting and high residuals. abdominal incision open but with drssing. hepatic drain intact, cordova catheter intact. piccline sharmaine intact ekg sinus tachycardia. Addendum: 10/26/18 at 1024 by LAUREN BELLA RN Amended: Links added.
--- NOTE | 2018-10-26 08:00 | NUR ---
seen by dr Selvin frey. Addendum: 10/26/18 at 1025 by LAUREN BELLA RN Amended: Yamile added. Addendum: 10/26/18 at 1026 by LAUREN BELLA RN Amended: Yamile added. Addendum: 10/26/18 at 1027 by LAUREN BELLA RN Amended: Links added. Addendum: 10/26/18 at 1029 by LAUREN BELLA RN Amended: Links added.
[2018-10-26] MEDS ORDERED: POTASSIUM CHLORIDE 20 MEQ POWDER PACKET GT ONE (08:30)
--- NOTE | 2018-10-26 08:30 | NUR ---
seen by dr Martin. orders received for k and mag replacement Addendum: 10/26/18 at 1026 by LAUREN BELLA RN Amended: Links added. Addendum: 10/26/18 at 1027 by LAUREN BELLA RN Amended: Links added. Addendum: 10/26/18 at 1029 by LAUREN BELLA RN Amended: Links added.
[2018-10-26] MEDS: LEVETIRACETAM IV 1,500 MG in IV DEXTROSE 5% 100 ML IV SCH ×2 (08:54→20:36)
[2018-10-26] MEDS: SODIUM HYPOCHLORITE 0.125% 473 ML BOTTLE TP SCH ×3 (09:00→20:37)
--- NOTE | 2018-10-26 09:00 | NUR ---
seen by dr lr. orders received. Addendum: 10/26/18 at 1027 by LAUREN BELLA RN Amended: Links added. Addendum: 10/26/18 at 1029 by LAUREN BELLA RN Amended: Links added.
[2018-10-26] MEDS: METOPROLOL TARTRATE 50 MG TABLET PEG SCH ×2 (09:35→20:34)
[2018-10-26] MEDS: POTASSIUM CHLORIDE 20 MEQ POWDER PACKET GT SCH ×3 (09:36→13:03)
[2018-10-26] MEDS: POTASSIUM CHLORIDE 50 ML IV SCH ×2 (09:37→12:12)
--- NOTE | 2018-10-26 10:00 | NUR ---
perineal care done for 1 loose BM. repositioned. patient very edematous Addendum: 10/26/18 at 1029 by LAUREN BELLA RN Amended: Links added.
[2018-10-26] MEDS: THERAHONEY GEL 1.5 OZ TUBE TOP SCH ×2 (10:05→20:38)
[2018-10-26] MEDS: MAGNESIUM SULFATE/D5W 100 ML IV SCH ×2 (10:31→13:02)
[2018-10-26] MEDS: FAMOTIDINE. 20 MG/2 ML VIAL IV SCH ×2 (10:31→20:34)
--- NOTE | 2018-10-26 11:38 | NUR ---
accucheck 97, no insulin coverage Addendum: 10/26/18 at 1138 by LAUREN BELLA RN Amended: Links added.
[2018-10-26] MEDS: PIPERACILLIN/TAZOBACTAM/D5W 3.375 G in PREMIXED 1 EACH IV SCH ×2 (14:11→21:32)
[2018-10-26] MEDS: MORPHINE SULFATE 2 MG/1 ML DISP.SYRIN IM PRN (14:43)
--- NOTE | 2018-10-26 15:13 | NUR ---
medicated for pain prior to wound dressing Addendum: 10/26/18 at 1543 by LAUREN BELLA RN Amended: Links added.
--- NOTE | 2018-10-26 17:59 | NUR ---
adilene 91, no coverage Addendum: 10/26/18 at 1759 by LAUREN BELLA RN Amended: Links added.
--- NOTE | 2018-10-26 19:28 | NUR ---
report given to Chetna Addendum: 10/26/18 at 1928 by LAUREN BELLA RN Amended: Links added.
--- NOTE | 2018-10-26 20:00 | NUR ---
rounds made patient in bed open eyes spontaneously but doesn't follow commands .upper and lower extremities flaccid .trach to vent tolerating vent setting saturation 100 % rr 20 suction via trach and orally thin to thick secretion bergeron to grayish in color . hob up . npo , right peritoneal drain to drainage bag with purulent output brownish /milky color,flused the pigtail with 10 ml of n/s.f/c to bsd with yellowish urine i and os done .
[2018-10-26] MEDS: Z GUARD REMEDY PASTE 57 GM TUBE TOP PRN (20:37)
[2018-10-26] MEDS: FLUCONAZOLE 200 MG/NS 100ML IV 100 MG in PREMIXED 1 EACH IV SCH (20:38)
[2018-10-27] VITALS (10 sets, daily range): BP systolic 93–125; BP diastolic 61–71
[2018-10-27] MEDS: IPRATROPIUM BROMIDE 0.5 MG/2.5 ML NEBU NEB SCH ×4 (01:06→19:00)
[2018-10-27 04:57] LABS: BASOPHILS % (AUTO) 0.4 % (0.0-2.0); EOSINOPHILS # (AUTO) 0.2 K/uL (0.0-0.7); HEMATOCRIT 23.5 % (36.7-47.1); HEMOGLOBIN 7.5 g/dL (12.5-16.3); LYMPHOCYTES # (AUTO) 1.1 K/uL (20.0-40.0); LYMPHOCYTES % (AUTO) 12.9 % (20.5-51.5); MEAN CORPUSCULAR HEMOGLOBIN 25.1 uug (23.8-33.4); MEAN CORPUSCULAR HGB CONC 32 g/dL (32.5-36.3); MEAN CORPUSCULAR VOLUME 78.2 fL (73.0-96.2); MONOCYTES # (AUTO) 0.7 K/uL (2.0-10.0); MONOCYTES % (AUTO) 8.9 % (0.0-11.0); NEUTROPHILS # (AUTO) 6.3 K/uL (1.8-8.9); NEUTROPHILS % (AUTO) 75.8 % (38.5-71.5); PLATELET COUNT (AUTO) 298 K/uL (152-348); WHITE BLOOD COUNT (AUTO) 8.3 K/uL (3.6-10.2)
[2018-10-27 05:13] LABS: CREATININE 0.9 mg/dL (0.6-1.3); MAGNESIUM 2.1 mg/dL (1.8-2.4); PHOSPHOROUS 3.5 mg/dL (2.5-4.9); POTASSIUM 3.4 mmol/L (3.5-5.1)
[2018-10-27] MEDS: PIPERACILLIN/TAZOBACTAM/D5W 3.375 G in PREMIXED 1 EACH IV SCH ×3 (05:22→21:57)
[2018-10-27] MEDS: POLYVINYL ALCOHOL OPHT DROPS 15 ML BOTTLE EACHEYE SCH ×3 (05:23→21:41)
[2018-10-27] MEDS: METOCLOPRAMIDE HCL 10 MG/2 ML VIAL IV SCH ×4 (05:24→23:49)
[2018-10-27] MEDS: BLOOD SUGAR DIAGNOSTIC 1 EACH STRIP VI SCH ×3 (05:46→18:28)
--- NOTE | 2018-10-27 07:30 | NUR ---
Nursing Notes: Vent setting AC 12 VT 500 fi02 30% peed of 5. Aspiration precautions, seizure precaution DVT pumps in place. Offloading every 2 hours as needed.
[2018-10-27] MEDS: LEVETIRACETAM IV 1,500 MG in IV DEXTROSE 5% 100 ML IV SCH ×2 (08:46→20:59)
[2018-10-27] MEDS: MORPHINE SULFATE 2 MG/1 ML DISP.SYRIN IM PRN ×2 (08:50→15:15)
[2018-10-27] MEDS: THERAHONEY GEL 1.5 OZ TUBE TOP SCH ×2 (08:51→21:02)
[2018-10-27] MEDS: METOPROLOL TARTRATE 50 MG TABLET PEG SCH ×2 (08:51→21:01)
[2018-10-27] MEDS: SODIUM HYPOCHLORITE 0.125% 473 ML BOTTLE TP SCH ×3 (08:52→21:03)
--- NOTE | 2018-10-27 10:45 | NUR ---
Nursing Note: Spoke with Veronique Fierro to initiate tube feeding. Will come see patient to decided whether initiating feeding is a viable option. Pt appears to not be in pain. Pt surgical abscess drain appears to no longer be draining. Turned and repositioned every 2 hours
[2018-10-27] MEDS: FAMOTIDINE. 20 MG/2 ML VIAL IV SCH ×2 (11:53→20:59)
[2018-10-27] MEDS: POTASSIUM CHLORIDE 50 ML IV SCH ×4 (12:49→16:15)
--- NOTE | 2018-10-27 15:00 | NUR ---
Nursing Note: Seen by TEODORO Madrid and TEODORO Piper. New order to resume GT feeding as tolerated. Slowly
[2018-10-27] MEDS: VITAL AF 1.2 1,000 ML LIQUID JT PRN (16:15)
--- NOTE | 2018-10-27 17:00 | NUR ---
Nursing Note: at bedside. Pt turned and repositioned every 2 hours. Clean and dry. Surgical draining no longer draining. GLASSWARE FINISHER Veronique aware. No new orders at this time.
--- NOTE | 2018-10-27 19:00 | NUR ---
Trached patient was received on Muñoz ventilator with ordered settings of A/C-12, VT-500, PEEP+5, FIO2-30%. No signs of respiratory distress noted at this time. He is trached with a Shiley 6DCT, BALLET PROFESSOR used for cuff inflation. Inline treatments administered and tolerated well. No adverse reactions noted. Oral/ Trach care rendered. No complications noted. Ambu bad and spare trach are at bedside. Alarm parameters are on/Audible
--- NOTE | 2018-10-27 20:00 | NUR ---
RECEIVED PT. OPENS HIS EYES TO ANY NOXIOUS STIMULI W/ FLAT AFFECT. TRACH TO VENT W/ SETTINGS OF AC-12,TV-500, FIO2-305, PEEP-+5 W/ 02 SAT OF 100%. SUCTIONED VIA TRACH W/ MINIMAL THICK TANNISH MUCOUS. G-TUBE REMAINS CLAMPED. J-TUBE INTACT & CHECKED RESIDUAL 5CC NOTED, ON TUBE FDG OF VITAL AF 1.2 @ 10CC/HR VIA J-TUBE.PERIHEPATIC CATH TO GRAVITY DRAINAGE BAG W/ GRAYISH THICK DRAINAGE.REPOSITIONED PT ON HIS SIDE W/ HOB ELEVATED.
--- NOTE | 2018-10-27 21:00 | NUR ---
wound care as ordered.
[2018-10-27] MEDS: FLUCONAZOLE 200 MG/NS 100ML IV 100 MG in PREMIXED 1 EACH IV SCH (21:28)
--- NOTE | 2018-10-27 22:00 | NUR ---
HS CARE DONE. SUCTIONED & REPOSITIONED.
[2018-10-28] VITALS (9 sets, daily range): BP systolic 98–129; BP diastolic 51–75
[2018-10-28] MEDS: IPRATROPIUM BROMIDE 0.5 MG/2.5 ML NEBU NEB SCH ×4 (00:56→19:43)
--- NOTE | 2018-10-28 04:00 | NUR ---
am care done . trach care done.
[2018-10-28] MEDS: IV NORMAL SALINE 250 ML IV PRN (04:38)
[2018-10-28 05:22] LABS: BASOPHILS % (AUTO) 0.2 % (0.0-2.0); EOSINOPHILS # (AUTO) 0.2 K/uL (0.0-0.7); EOSINOPHILS % (AUTO) 2.7 % (0.0-7.0); HEMATOCRIT 23.6 % (36.7-47.1); HEMOGLOBIN 7.5 g/dL (12.5-16.3); LYMPHOCYTES # (AUTO) 0.9 K/uL (20.0-40.0); LYMPHOCYTES % (AUTO) 11.7 % (20.5-51.5); MEAN CORPUSCULAR HEMOGLOBIN 25.1 uug (23.8-33.4); MEAN CORPUSCULAR HGB CONC 32 g/dL (32.5-36.3); MEAN CORPUSCULAR VOLUME 78.4 fL (73.0-96.2); MONOCYTES # (AUTO) 0.6 K/uL (2.0-10.0); MONOCYTES % (AUTO) 8.6 % (0.0-11.0); NEUTROPHILS # (AUTO) 5.7 K/uL (1.8-8.9); NEUTROPHILS % (AUTO) 76.8 % (38.5-71.5); PLATELET COUNT (AUTO) 269 K/uL (152-348); RED BLOOD CELL COUNT(AUTO) 3.01 MIL/uL (4.06-5.63); WHITE BLOOD COUNT (AUTO) 7.5 K/uL (3.6-10.2)
[2018-10-28] MEDS: METOCLOPRAMIDE HCL 10 MG/2 ML VIAL IV SCH ×4 (05:22→23:10)
[2018-10-28] MEDS: POLYVINYL ALCOHOL OPHT DROPS 15 ML BOTTLE EACHEYE SCH ×3 (05:22→21:32)
[2018-10-28] MEDS: PIPERACILLIN/TAZOBACTAM/D5W 3.375 G in PREMIXED 1 EACH IV SCH ×2 (05:23→14:42)
[2018-10-28 05:25] LABS: PHOSPHOROUS 3.7 mg/dL (2.5-4.9); POTASSIUM 3.2 mmol/L (3.5-5.1)
[2018-10-28] MEDS: BLOOD SUGAR DIAGNOSTIC 1 EACH STRIP VI SCH ×5 (05:29→23:10)
[2018-10-28] MEDS: METOPROLOL TARTRATE 50 MG TABLET PEG SCH ×2 (09:33→20:17)
[2018-10-28] MEDS: SODIUM HYPOCHLORITE 0.125% 473 ML BOTTLE TP SCH ×3 (09:34→20:18)
[2018-10-28] MEDS: THERAHONEY GEL 1.5 OZ TUBE TOP SCH ×2 (09:34→21:29)
[2018-10-28] MEDS: MORPHINE SULFATE 2 MG/1 ML DISP.SYRIN IM PRN ×2 (09:36→15:13)
[2018-10-28] MEDS: LEVETIRACETAM IV 1,500 MG in IV DEXTROSE 5% 100 ML IV SCH ×2 (09:36→20:13)
[2018-10-28] MEDS ORDERED: POTASSIUM CHLORIDE 20 MEQ POWDER PACKET GT ONE ×3 (09:45→13:00)
[2018-10-28] MEDS: POTASSIUM CHLORIDE 50 ML IV SCH ×2 (11:08→12:44)
[2018-10-28] MEDS: FAMOTIDINE. 20 MG/2 ML VIAL IV SCH ×2 (11:08→20:00)
--- NOTE | 2018-10-28 11:21 | NUR ---
PATIENT RECEIVED ON VENT WITH SETTINGS OF AC12, VT500, +5, 30% FiO2. VENT ALARMS ARE ON AND AUDIBLE. VENT IS PLUGGED INTO RED EMERGENCY OUTLET. PATIENT HAS A SHILEY [address], PATENT AND SECURED WITH TRACH TIE. AMBUBAG/BACK UP TRACH AT PATIENT BEDSIDE. NO SOB NOTED AT THIS TIME. TX JOSHUA WELL, NO ADVERSE REACTIONS NOTED. ORAL CARE DONE. SX'D PRN. WILL CONTINUE TO MONITOR AND REPORT ANY CHANGES.
[2018-10-28] MEDS ORDERED: SWABABLE VALVE TRANSFER SET EA MC ONE (12:36)
[2018-10-28] MEDS ORDERED: IV NORMAL SALINE 250 ML IV ONE (12:36)
[2018-10-28] MEDS ORDERED: IOHEXOL 300MG/ML 100 ML INFUS..BTL ONE (12:36)
--- NOTE | 2018-10-28 19:25 | NUR ---
Received pt HOB elevated, eyes open spontaneously, unable to follow commands. Pt upper and lower extremities flaccid, gag reflex present. Pt on trach with vent settings: AC 12, TV 500, PEEP 5, FIO2 30%. O2 sat of 99%. J-tube running tube feedings at 30 cc/hr. G-tube remains clamped, no residuals noted. Perihepatic cath to gravity drainage bag with brownish drainage. Assessment completed. VSS, afebrile. Oral care done, pt turned and repositioned. Aspiration and seizure precautions initiated at all times. Continue to monitor pt.
--- NOTE | 2018-10-28 19:45 | NUR ---
Received pt on Muñoz ventilator with the following settings of AC-12, Vt-500, PEEP+5, FIO2-30%, trached with Shiley#6 DCT trach, which is in the place and secure. Pt transferred to room 306 with two RT's and CCU RN at bedside. Airway care done, pt responded to physical stimuli. In-line HHN tx with 0.5mg Atrovent given, pt tolerated well. Cont. pulse ox on. Resus. bag and back up trach at bedside. Vent and alarms checked and reset.
[2018-10-28] MEDS: FLUCONAZOLE 200 MG/NS 100ML IV 100 MG in PREMIXED 1 EACH IV SCH (21:30)
[2018-10-29] VITALS (9 sets, daily range): BP systolic 110–141; BP diastolic 62–82
[2018-10-29] MEDS: IPRATROPIUM BROMIDE 0.5 MG/2.5 ML NEBU NEB SCH ×4 (01:02→20:04)
--- NOTE | 2018-10-29 05:15 | NUR ---
AM care provided. Oral care done with thin amount of white secretion noted. Pt tolerated current vent settings well. Pt kept clean and dry. Pt turned and repositioned. Aspiration and seizure precautions observed. Will endorse accordingly.
[2018-10-29] MEDS: METOCLOPRAMIDE HCL 10 MG/2 ML VIAL IV SCH ×4 (05:17→23:53)
[2018-10-29] MEDS: POLYVINYL ALCOHOL OPHT DROPS 15 ML BOTTLE EACHEYE SCH ×3 (05:17→22:09)
[2018-10-29] MEDS: BLOOD SUGAR DIAGNOSTIC 1 EACH STRIP VI SCH ×4 (05:20→23:53)
[2018-10-29 06:52] LABS: CREATININE 0.9 mg/dL (0.6-1.3); MAGNESIUM 1.9 mg/dL (1.8-2.4); PHOSPHOROUS 3.7 mg/dL (2.5-4.9); POTASSIUM 3.3 mmol/L (3.5-5.1)
[2018-10-29 06:54] LABS: BASOPHILS % (AUTO) 0.4 % (0.0-2.0); EOSINOPHILS # (AUTO) 0.2 K/uL (0.0-0.7); EOSINOPHILS % (AUTO) 2.3 % (0.0-7.0); HEMATOCRIT 24.8 % (36.7-47.1); HEMOGLOBIN 7.9 g/dL (12.5-16.3); LYMPHOCYTES # (AUTO) 0.8 K/uL (20.0-40.0); LYMPHOCYTES % (AUTO) 11.2 % (20.5-51.5); MEAN CORPUSCULAR HEMOGLOBIN 25.1 uug (23.8-33.4); MEAN CORPUSCULAR HGB CONC 32 g/dL (32.5-36.3); MEAN CORPUSCULAR VOLUME 78.9 fL (73.0-96.2); MONOCYTES # (AUTO) 0.5 K/uL (2.0-10.0); MONOCYTES % (AUTO) 7.1 % (0.0-11.0); NEUTROPHILS # (AUTO) 5.9 K/uL (1.8-8.9); PLATELET COUNT (AUTO) 240 K/uL (152-348); RED BLOOD CELL COUNT(AUTO) 3.15 MIL/uL (4.06-5.63); WHITE BLOOD COUNT (AUTO) 7.4 K/uL (3.6-10.2)
--- NOTE | 2018-10-29 07:10 | NUR ---
PT RECEIVED ON TY VENT WITH TRACH SECUED AND INTACT.AIRWAY PATENT. PT COMFORTABLE TOLERATING CURRENT VENT SETTINGS FINE WITH NO DISTRESS. VENT ALARM SET AND AUDIBLE. VENT PLUGGED IN RED OUTLET
[2018-10-29] MEDS: METOPROLOL TARTRATE 50 MG TABLET PEG SCH ×2 (09:02→20:47)
[2018-10-29] MEDS: SODIUM HYPOCHLORITE 0.125% 473 ML BOTTLE TP SCH ×3 (09:09→20:50)
[2018-10-29] MEDS: THERAHONEY GEL 1.5 OZ TUBE TOP SCH ×2 (09:09→20:49)
[2018-10-29] MEDS: LEVETIRACETAM IV 1,500 MG in IV DEXTROSE 5% 100 ML IV SCH ×2 (09:23→20:48)
[2018-10-29] MEDS: FAMOTIDINE. 20 MG/2 ML VIAL IV SCH ×2 (10:01→20:46)
[2018-10-29] MEDS: VITAL AF 1.2 1,000 ML LIQUID JT PRN (10:08)
[2018-10-29] MEDS ORDERED: FLUC200T8 PO (12:13)
[2018-10-29] MEDS ORDERED: METO5VIA3 IV (12:13)
[2018-10-29] MEDS ORDERED: POTASSIUM CHLORIDE 20 MEQ POWDER PACKET PEG ONE (12:45)
--- NOTE | 2018-10-29 16:00 | NUR ---
Residual at this time 60cc bile/greenish fluid obtained from G-T. flushed back in. GI aware. feeding continue.
[2018-10-29] MEDS: Z GUARD REMEDY PASTE 57 GM TUBE TOP PRN (20:49)
[2018-10-29] MEDS: FLUCONAZOLE 200 MG/NS 100ML IV 100 MG in PREMIXED 1 EACH IV SCH (20:51)
[2018-10-30] VITALS (23 sets, daily range): BP systolic 90–131; BP diastolic 54–87
--- NOTE | 2018-10-30 00:01 | NUR ---
Abdominal & sacral wound cares as ordered. Tolerating tube feeding well. HOB elevated 39 degrees. Trach #6 Shiley to vent FiO2 30%.
[2018-10-30] MEDS: IPRATROPIUM BROMIDE 0.5 MG/2.5 ML NEBU NEB SCH ×4 (02:14→19:15)
--- NOTE | 2018-10-30 03:02 | NUR ---
PT ON CONT TY VENT WITH SHILEY # [address] AND SECURED, WITH SAME CURRENT VENT SETTINGS, A/C 12, VT 500ML, PEEP5, 30%, ALL VENT ALARMS GOOD, NO VENT CHANGES MADE, SUCTIONED WHITISH TINGE SECRETIONS, AND SUCTION MOUTH WITH SHERIN NGUYEN; NEB INLINE WITH SHERIN BOWENS, CHANGE HME AND CHECK CUFF, TRACH CARE DONE, PT STABLE, AMBU BAG AT BEDSIDE.Emily STRAUSSP Addendum: 10/30/18 at 0305 by PAIGE HOWELL RT Amended: Links added.
[2018-10-30] MEDS: METOCLOPRAMIDE HCL 10 MG/2 ML VIAL IV SCH ×4 (05:21→23:07)
[2018-10-30] MEDS: POLYVINYL ALCOHOL OPHT DROPS 15 ML BOTTLE EACHEYE SCH ×3 (05:21→21:30)
[2018-10-30 05:27] LABS: CREATININE 0.9 mg/dL (0.6-1.3); MAGNESIUM 1.9 mg/dL (1.8-2.4); POTASSIUM 3.1 mmol/L (3.5-5.1)
[2018-10-30] MEDS: BLOOD SUGAR DIAGNOSTIC 1 EACH STRIP VI SCH ×4 (05:31→23:15)
--- NOTE | 2018-10-30 07:57 | NUR ---
PT RECEIVED ON CONTINUOUS VENT AC 12 VT 500 PEEP 5 FIO2 30% . TRACH IN PLACED AND SECURED WITH TRACH TIE. BACK UP TRACH AND AMBU BAG AT BEDSIDE. IN LINE TX GIVEN ORDERED. SUCTION LAVAGE PRN. VENT CHECKED, ALARMS WORKING WELL AND AUDIBLE. NO DISTRESS NOTED AT THIS TIME. WILL CONTINUE TO MONITOR.
[2018-10-30] MEDS: LEVETIRACETAM IV 1,500 MG in IV DEXTROSE 5% 100 ML IV SCH ×2 (08:54→21:27)
[2018-10-30] MEDS: METOPROLOL TARTRATE 50 MG TABLET PEG SCH ×2 (08:55→21:28)
[2018-10-30] MEDS: THERAHONEY GEL 1.5 OZ TUBE TOP SCH ×2 (08:55→21:30)
[2018-10-30] MEDS: SODIUM HYPOCHLORITE 0.125% 473 ML BOTTLE TP PRN (08:56)
[2018-10-30] MEDS: Z GUARD REMEDY PASTE 57 GM TUBE TOP PRN (08:56)
[2018-10-30] MEDS: SODIUM HYPOCHLORITE 0.125% 473 ML BOTTLE TP SCH ×3 (08:56→21:29)
--- NOTE | 2018-10-30 09:40 | NUR ---
Pt.was seen by DNP:Randall Acuna & YARD INSPECTOR:Mercy Lai.
[2018-10-30] MEDS: IV D5/ 0.9% NACL 1,000 ML IV PRN (10:15)
--- NOTE | 2018-10-30 10:20 | NUR ---
Pt.was seen by HINA ARREDONDO MD with new orders.
[2018-10-30] MEDS: POTASSIUM CHLORIDE 50 ML IV SCH ×2 (10:29→11:23)
[2018-10-30] MEDS: FAMOTIDINE. 20 MG/2 ML VIAL IV SCH ×2 (11:23→21:28)
--- NOTE | 2018-10-30 15:07 | NUR ---
Family at bedside, updated with pt.condition and plan of care.
--- NOTE | 2018-10-30 18:58 | NUR ---
No changes in pt. condition,no s/s of distress.
--- NOTE | 2018-10-30 20:00 | NUR ---
Received patient A/O x 0. Obtunded. Patient is on a trach to vent, shiley # 6 AC 12, TV 500, Fio2 30 PEEP 5. Tolerating vent setting. O2 sat is 100. TELE SR at 90. PICC line on the right upper arm, IV fluids infusing, patent and intact. Noted abdominal wound dressing C/D/I. Right upper daniel hepatic drainage, draining purulent draining. Noted upper extremities edema. Fletcher is in place, draining clear and yellow urine. DVT pumps in place. On air mattress. Safety initiated. Will closely monitor.
[2018-10-30] MEDS: THERAHONEY GEL 1.5 OZ TUBE TOP PRN (21:28)
[2018-10-30] MEDS: FLUCONAZOLE 200 MG/NS 100ML IV 100 MG in PREMIXED 1 EACH IV SCH (21:42)
[2018-10-31] VITALS (20 sets, daily range): BP systolic 98–136; BP diastolic 35–73
[2018-10-31] MEDS: IPRATROPIUM BROMIDE 0.5 MG/2.5 ML NEBU NEB SCH ×4 (01:19→19:15)
--- NOTE | 2018-10-31 03:29 | NUR ---
PATIENT RECEIVED ON A TY VENTILATOR WITH THE FOLLOWING SETTINGS THAT ARE CHARTED ON THE MECHANICAL VENTILATOR NOTES. TRACH TUBE IS PATENT AND SECURED W/ TRACH TIES. HME CHANGED. HHN TX GIVEN PER MD ORDER'S AND WAS TOLERATED WELL W/ NO ADVERSE REACTIONS. SUCTIONED SMALL AMOUNTS OF THIN WHITE/YELLOW SECRETIONS.VENTILATOR ALARMS ARE ON AND LOUD. VENTILATOR IS PLUGGED IN THE RED EMERGENCY OUTLET. SPARE TRACH AND AMBU IS BY BEDSIDE. PATIENT IS TOLERATING CURRENT VENTILATOR SETTINGS WELL AT THIS TIME WITH NO SOB NOTED. WILL CONTINUE TO MONITOR.
--- NOTE | 2018-10-31 04:30 | NUR ---
am care done, bath patient ,changed soiled linens and gown . wound dressing done abdominal area and sacral area , and follow wound care treatment .f/c and trach care done turned and reposition .
[2018-10-31 04:55] LABS: BASOPHILS % (AUTO) 0.3 % (0.0-2.0); EOSINOPHILS # (AUTO) 0.1 K/uL (0.0-0.7); LYMPHOCYTES # (AUTO) 1.1 K/uL (20.0-40.0)
[2018-10-31 04:56] LABS: EOSINOPHILS % (AUTO) 1.3 % (0.0-7.0); HEMATOCRIT 22.1 % (36.7-47.1); MEAN CORPUSCULAR HGB CONC 32 g/dL (32.5-36.3); MONOCYTES # (AUTO) 0.5 K/uL (2.0-10.0); NEUTROPHILS # (AUTO) 5.4 K/uL (1.8-8.9); NEUTROPHILS % (AUTO) 76.4 % (38.5-71.5); PLATELET COUNT (AUTO) 228 K/uL (152-348); RED BLOOD CELL COUNT(AUTO) 2.83 MIL/uL (4.06-5.63); WHITE BLOOD COUNT (AUTO) 7.1 K/uL (3.6-10.2)
[2018-10-31 05:02] LABS: HEMOGLOBIN 7.1 g/dL (12.5-16.3)
[2018-10-31 05:07] LABS: BILIRUBIN,TOTAL 0.4 mg/dL (0.2-1.0); CREATININE 0.9 mg/dL (0.6-1.3); MAGNESIUM 1.8 mg/dL (1.8-2.4); PHOSPHOROUS 4.1 mg/dL (2.5-4.9); POTASSIUM 3.3 mmol/L (3.5-5.1); TOTAL PROTEIN, SERUM 5.4 g/dL (6.4-8.2)
[2018-10-31] MEDS: BLOOD SUGAR DIAGNOSTIC 1 EACH STRIP VI SCH ×4 (05:24→23:46)
[2018-10-31] MEDS: POLYVINYL ALCOHOL OPHT DROPS 15 ML BOTTLE EACHEYE SCH ×3 (05:25→22:09)
[2018-10-31] MEDS: METOCLOPRAMIDE HCL 10 MG/2 ML VIAL IV SCH ×4 (05:25→23:46)
--- NOTE | 2018-10-31 07:32 | NUR ---
PT RECEIVED TRACH TO VENT ON CMV, PT IS ON A TY VENT ON SETTINGS OF A/C 12, VT 500, PEEP +5 AND 30% FIO2. SHILEY #6 TRACH IS PATENT AND SECURE. VENT PARAMETERS AND ALARMS CHECKED, ALARMS ARE AUDIBLE. IN-LINE TX TOLERATED WELL, NO ADVERSE REACTION NOTED. HME CHANGED. PT IS TOLERATING VENT SETTINGS WELL, NO RESP. DISTRESS NOTED AT THIS TIME. AMBU-BAG AND BACK-UP TACH AT BEDSIDE. VENT PLUGGED INTO RED OUTLET. SUCTION PRN. WILL CONTINUE TO MONITOR.
[2018-10-31] MEDS: LEVETIRACETAM IV 1,500 MG in IV DEXTROSE 5% 100 ML IV SCH ×2 (08:21→20:41)
[2018-10-31] MEDS: SODIUM HYPOCHLORITE 0.125% 473 ML BOTTLE TP SCH ×3 (08:23→20:49)
[2018-10-31] MEDS: THERAHONEY GEL 1.5 OZ TUBE TOP SCH ×2 (08:24→20:42)
[2018-10-31] MEDS: METOPROLOL TARTRATE 50 MG TABLET PEG SCH ×2 (08:26→20:42)
[2018-10-31 09:18] LABS: ABG BASE EXCESS 1.5 mmol/L; ABG HCO3 25.6 mmol/L; ABG PCO2 37.8 mmHg (35.0-45.0); ABG PH 7.449 (7.350-7.450); ABG PO2 131.3 mmHg (75.0-100.0); ABG SITE RIGHT RADIAL; ABG TOTAL HEMOGLOBIN 7.5 G/dL (13.5-18.0); COHb 1.9 % (0.5-1.5); MetHb 0.5 % (0.0-1.5); O2Hb 96.3 % (94.0-97.0); VENT MODE VENT - A/C; VT, ABG 500 mL
--- NOTE | 2018-10-31 09:55 | NUR ---
Pt.was seen by HINA ARREDONDO MD with new orders.
[2018-10-31] MEDS: POTASSIUM CHLORIDE 50 ML IV SCH ×2 (10:28→11:11)
[2018-10-31] MEDS: FAMOTIDINE. 20 MG/2 ML VIAL IV SCH ×2 (10:28→20:41)
[2018-10-31] MEDS: IV D5/ 0.9% NACL 1,000 ML IV PRN ×2 (11:12→20:25)
--- NOTE | 2018-10-31 11:30 | NUR ---
at bedside, updated with pt.condition and plan of care.
[2018-10-31] MEDS ORDERED: FENTANYL CITRATE 100 MCG/2 ML AMPUL IV PRN (14:00)
[2018-10-31] MEDS ORDERED: MIDAZOLAM HCL 2 MG/2 ML VIAL IV PRN (14:00)
[2018-10-31] MEDS ORDERED: NALOXONE HCL 0.4 MG/ML AMPUL IV PRN (14:00)
--- NOTE | 2018-10-31 15:05 | NUR ---
PT.WENT TO CT SCAN FOR DRAIN PLACEMENT,NO S/S OF DISTRESS.
--- NOTE | 2018-10-31 16:40 | NUR ---
Pt.back from CT, tolerated well, no s/s of distress.
--- NOTE | 2018-10-31 20:00 | NUR ---
rounds made patient in bed obtunded, trach to vent tolerating trach ac/12/30% 500 peep 5, saturation 100 % rr 12. no respiratory distress noted. sr on the heart monitor . right pericolic gravity drain in placed and patent, f/c to bsd . scds to ble . no s/s/ of pain continue to monitor v/s and levels of comfort.
[2018-10-31] MEDS: FLUCONAZOLE 200 MG/NS 100ML IV 100 MG in PREMIXED 1 EACH IV SCH (20:49)
[2018-11-01] VITALS (13 sets, daily range): BP systolic 107–129; BP diastolic 52–73
--- NOTE | 2018-11-01 | NUR ---
rounds made patient in bed ,suction via trach and via ett . turned and reposition patient . hob up .aspiration precaution observed.
[2018-11-01] MEDS: IPRATROPIUM BROMIDE 0.5 MG/2.5 ML NEBU NEB SCH ×4 (01:24→19:31)
--- NOTE | 2018-11-01 02:00 | NUR ---
turned and reposition patient .hob up . f/c to bsd .ivf in progress , sr to st on the heart monitor .
--- NOTE | 2018-11-01 04:30 | NUR ---
am care done ,bath patient ,changed soiled linens and gown . abdominal dressing done and follow wound care orders .sacral dressing done. right upper and lower abdominal drain in placed and patent no output noted , flushed drain with 10 ml normal saline . due medications given and scan . i and os done .
[2018-11-01 05:21] LABS: BASOPHILS % (AUTO) 0.5 % (0.0-2.0); EOSINOPHILS # (AUTO) 0.1 K/uL (0.0-0.7)
[2018-11-01] MEDS: METOCLOPRAMIDE HCL 10 MG/2 ML VIAL IV SCH ×4 (05:21→23:30)
[2018-11-01] MEDS: POLYVINYL ALCOHOL OPHT DROPS 15 ML BOTTLE EACHEYE SCH ×3 (05:21→21:13)
[2018-11-01 05:23] LABS: BILIRUBIN,TOTAL 0.4 mg/dL (0.2-1.0); CREATININE 0.8 mg/dL (0.6-1.3); EOSINOPHILS % (AUTO) 1.4 % (0.0-7.0); HEMATOCRIT 21.8 % (36.7-47.1); LYMPHOCYTES % (AUTO) 17.1 % (20.5-51.5); MEAN CORPUSCULAR HEMOGLOBIN 24.9 uug (23.8-33.4); MEAN CORPUSCULAR HGB CONC 32 g/dL (32.5-36.3); MEAN CORPUSCULAR VOLUME 78.2 fL (73.0-96.2); MONOCYTES # (AUTO) 0.5 K/uL (2.0-10.0); MONOCYTES % (AUTO) 7.7 % (0.0-11.0); NEUTROPHILS # (AUTO) 4.3 K/uL (1.8-8.9); NEUTROPHILS % (AUTO) 73.3 % (38.5-71.5); PLATELET COUNT (AUTO) 211 K/uL (152-348); POTASSIUM 3.2 mmol/L (3.5-5.1); RED BLOOD CELL COUNT(AUTO) 2.79 MIL/uL (4.06-5.63); TOTAL PROTEIN, SERUM 5.5 g/dL (6.4-8.2); WHITE BLOOD COUNT (AUTO) 5.9 K/uL (3.6-10.2)
[2018-11-01 05:24] LABS: MAGNESIUM 1.8 mg/dL (1.8-2.4); PHOSPHOROUS 4.3 mg/dL (2.5-4.9)
[2018-11-01] MEDS: BLOOD SUGAR DIAGNOSTIC 1 EACH STRIP VI SCH ×4 (05:38→23:30)
[2018-11-01 05:50] LABS: HEMOGLOBIN 6.9 g/dL (12.5-16.3)
[2018-11-01 06:22] LABS: LYMPHOCYTES % (MANUAL) 17 % (20-40); MONOCYTES % (MANUAL) 8 % (2-10); NEUTROPHILS % (MANUAL) 75 % (42-75)
--- NOTE | 2018-11-01 06:30 | NUR ---
2 nd call for epic done ,spoked to service , for abnormal am labs .
--- NOTE | 2018-11-01 07:30 | NUR ---
RECIEVED PT LYING I8N BED, OBTUNDED BUT OCCASSIONALLY OPENS HIS EYES. APHASIC AND ALL EXTREMETIES ARE FLACCID. COLOR IS PALE, HR-SR-ST WITH OCCASSIONAL PVC. TEMP 99.1. PT ON A VENT, CHRONIC TRACHEOSTOMY SHILEY #6. VENT SETTING OF AC12, FIO2-500, FIO2-30%, PEEP-5. O2SAT IS 100%, LUNGS HAS SCATTERED RHONCHIS. SUCTION FREQUENTLY WITH MODERATE THICK YELLOWISH PHLEGM. NO APPARENT RESPIRATORY DISTRESS NOTED.
[2018-11-01] MEDS: LEVETIRACETAM IV 1,500 MG in IV DEXTROSE 5% 100 ML IV SCH ×2 (08:03→20:10)
[2018-11-01] MEDS: SODIUM HYPOCHLORITE 0.125% 473 ML BOTTLE TP PRN ×2 (08:03→08:09)
[2018-11-01] MEDS: Z GUARD REMEDY PASTE 57 GM TUBE TOP PRN (08:04)
[2018-11-01] MEDS: THERAHONEY GEL 1.5 OZ TUBE TOP PRN (08:05)
[2018-11-01] MEDS: METOPROLOL TARTRATE 50 MG TABLET PEG SCH ×2 (08:07→20:11)
[2018-11-01] MEDS: THERAHONEY GEL 1.5 OZ TUBE TOP SCH ×2 (08:09→20:11)
[2018-11-01] MEDS: SODIUM HYPOCHLORITE 0.125% 473 ML BOTTLE TP SCH ×3 (08:11→20:12)
--- NOTE | 2018-11-01 08:30 | NUR ---
NOTIFIED CAL SANTOS DNP OF PT'S LOW H&H. 1 UNIT OF PRBC WAS ORDERED BY HIM. ALSO TO RESUME TUBE FEEDING.
[2018-11-01] MEDS: VITAL AF 1.2 1,000 ML LIQUID JT PRN (09:24)
--- NOTE | 2018-11-01 09:30 | NUR ---
SEEN AND EXAMINED BY DR ARREDONDO WITH NEW ORDERS.
[2018-11-01] MEDS: POTASSIUM CHLORIDE 50 ML IV SCH ×4 (09:51→13:36)
[2018-11-01] MEDS: FAMOTIDINE. 20 MG/2 ML VIAL IV SCH ×2 (11:02→20:11)
--- NOTE | 2018-11-01 11:36 | NUR ---
1 UNIT OF PRBC STARTED TO INFUSE VIA PICC LINE ORDERED. TEMP IS 99.1F. NO APPARENT TRANSFUSION REACTION NOTED.
--- NOTE | 2018-11-01 14:00 | NUR ---
SEEN AND EXAMINED BY RENUKA VALERIO. INFORMED ABOUT A PENDING GI SERIES ORDERED. STATED THAT ORDER WAS BEFORE THE PROCEEDURE DONE. DR ISAAC THE RADIOLOGIST STATED NO NEED TO PERFORM IT. AWAITING FOR THE GI MD TO INFORM ABOUT THE PENDING TEST.
--- NOTE | 2018-11-01 14:10 | NUR ---
BLOOD TRANSFUSION IS FINISHED. PT TOLERATED WELL WITHOUT ANY REACTION.
--- NOTE | 2018-11-01 16:00 | NUR ---
PM CARE AND DRESSING CHANGES DONE BOTH THE ABDOMEN AND THE SACRUM.
[2018-11-01] MEDS: IV D5/ 0.9% NACL 1,000 ML IV PRN (17:39)
--- NOTE | 2018-11-01 19:15 | NUR ---
ID MATERIAL ATTENDANT CAME AND PER SHER SHE STILL WANTS TO CONTINUE THE FLUCONAZOLE ANTX.
--- NOTE | 2018-11-01 19:39 | NUR ---
ROUND MADE PATIENT IN BED OBTUNDED,OPEN EYES SPONTANEOUSLY BUT DOESN'T FOLLOW COMMANDS ,UPPER AND LOWER EXTREMITIES FLACCID . TRACH TO VENT AC 12/500/30% PEEP OF 5 .TOLERATING VENT SETTING RR 12 SATURATION 100% , SUCTION VIA MOUTH AND VIA TRACH . THIN ,THICK SECRETIONS . TURNED AND REPOSITION AND OFFLOADED BACK WITH PILLOW . TUBE FEEDING IN PROGRESS ION VITAL AF AT 30 ML HOUR , MINIMAL RESIDUAL ONLY 20 ML . WILL CONTINUE TO INCREASE TF TOLERATED TO THE GOAL OF 65 ML/HR ,HOB UP ASPIRATION .F/C TO BSD . RIGHT UPPER AND LOWER ABSCESS DRAIN INTACT AND PATENT ,CONTINUE TO MONITOR V/S AND LEVELS OF COMFORT .
[2018-11-01] MEDS: FLUCONAZOLE 200 MG/NS 100ML IV 100 MG in PREMIXED 1 EACH IV SCH (21:12)
--- NOTE | 2018-11-01 21:30 | NUR ---
WOUND DRESSING DONE SACRAL CLEANSE WITH NORMAL SALINE APPLIED THERA HONEY AND COVER WITH MEPILEX AND ABDOMEN AREA SURGICAL SITE CLEANSE WITH DAKIN SOLUTION COVER WITH ABDOMINAL PAD AND SECURE WITH TAPE DONE ASEPTICALLY . .
--- NOTE | 2018-11-01 23:46 | NUR ---
f/s done 105 no coverage given .
[2018-11-02] VITALS (15 sets, daily range): BP systolic 94–142; BP diastolic 56–85
[2018-11-02] MEDS: IPRATROPIUM BROMIDE 0.5 MG/2.5 ML NEBU NEB SCH ×4 (01:10→20:37)
[2018-11-02 05:14] LABS: BASOPHILS % (AUTO) 0.4 % (0.0-2.0); EOSINOPHILS # (AUTO) 0.1 K/uL (0.0-0.7); EOSINOPHILS % (AUTO) 1.6 % (0.0-7.0); HEMATOCRIT 25.7 % (36.7-47.1); HEMOGLOBIN 8.4 g/dL (12.5-16.3); LYMPHOCYTES # (AUTO) 1.1 K/uL (20.0-40.0); MEAN CORPUSCULAR HEMOGLOBIN 25.8 uug (23.8-33.4); MEAN CORPUSCULAR HGB CONC 33 g/dL (32.5-36.3); MEAN CORPUSCULAR VOLUME 79.5 fL (73.0-96.2); MONOCYTES # (AUTO) 0.6 K/uL (2.0-10.0); MONOCYTES % (AUTO) 8.1 % (0.0-11.0); NEUTROPHILS # (AUTO) 5.3 K/uL (1.8-8.9); NEUTROPHILS % (AUTO) 74.9 % (38.5-71.5); PLATELET COUNT (AUTO) 206 K/uL (152-348); RED BLOOD CELL COUNT(AUTO) 3.24 MIL/uL (4.06-5.63); WHITE BLOOD COUNT (AUTO) 7.1 K/uL (3.6-10.2)
[2018-11-02 05:22] LABS: CREATININE 0.8 mg/dL (0.6-1.3); MAGNESIUM 1.6 mg/dL (1.8-2.4); PHOSPHOROUS 3.9 mg/dL (2.5-4.9); POTASSIUM 3.4 mmol/L (3.5-5.1)
[2018-11-02] MEDS: POLYVINYL ALCOHOL OPHT DROPS 15 ML BOTTLE EACHEYE SCH ×3 (05:34→21:46)
[2018-11-02] MEDS: METOCLOPRAMIDE HCL 10 MG/2 ML VIAL IV SCH ×3 (05:35→18:20)
[2018-11-02] MEDS: BLOOD SUGAR DIAGNOSTIC 1 EACH STRIP VI SCH ×3 (05:47→16:41)
--- NOTE | 2018-11-02 07:20 | NUR ---
report received from assistant shift supervisor RN at bedside, pt able to blink eyes to respond in Welsh, "stadyana". Pt flaccid BUE with 3+ pitting edema, trachea shiley #8 hooked to AC12, 30% 500 TV and peep 5 sats 100%, scant, thin and white secretions, mouth care performed, pt has excess salivia, abd firm and distended, 2 drains to gravity and dressing D/I. Tube feeding off, 60 cc residual, green and thin.Picc line patent to WILMA, BP cuff changed to MARIBEL, checked results of US nonacute, no DVT noted, prior in May, notified, ok to use arm for BP cuff, was in 140s on leg cuff and WNL on arm cuff. NSR on the monitor.
--- NOTE | 2018-11-02 08:00 | NUR ---
RECEIVED PT TRACH PATIENT ON CONTINUOUS MECHANICAL VENTILATION. VENTILATOR SETTINGS ARE AC 12, VT 500, PEEP +5, FIO2 30%. NO CHANGES MADE AT THIS TIME. VENT ALARMS CHECKED, ARE ON AND FUNCTIONING PROPERLY. BENNYLEY #6 TRACH IS PATENT AND SECURED VIA TRACH TIES. NEB TX ADMINISTERED PER MD ORDER. AMBU BAG AND BACK UP TRACH ARE AT BEDSIDE. SUCTIONED SMALL AMOUNT OF THICK, YELLOW SECRETIONS. VENT IS PLUGGED INTO RED EMERGENCY OUTLET. WILL CONTINUE TO MONITOR THROUGHOUT SHIFT.
[2018-11-02] MEDS: LEVETIRACETAM IV 1,500 MG in IV DEXTROSE 5% 100 ML IV SCH ×2 (08:49→20:25)
[2018-11-02] MEDS: METOPROLOL TARTRATE 50 MG TABLET PEG SCH ×2 (08:49→20:34)
[2018-11-02] MEDS: SODIUM HYPOCHLORITE 0.125% 473 ML BOTTLE TP PRN (08:50)
[2018-11-02] MEDS: Z GUARD REMEDY PASTE 57 GM TUBE TOP PRN (08:52)
[2018-11-02] MEDS: SODIUM HYPOCHLORITE 0.125% 473 ML BOTTLE TP SCH ×3 (08:53→21:48)
[2018-11-02] MEDS: THERAHONEY GEL 1.5 OZ TUBE TOP SCH ×2 (08:58→21:48)
[2018-11-02] MEDS: THERAHONEY GEL 1.5 OZ TUBE TOP PRN (08:58)
--- NOTE | 2018-11-02 10:30 | NUR ---
pt had BM, soft and beige, moderate amount, Dressing change to sacral, no drainage, packed and followed dressing protocol per wound care.
--- NOTE | 2018-11-02 11:30 | NUR ---
BS 127 no coverage needed, Tube feeding at 55 cc/hr, residual 60cc thin and green, abd firm and distented, drains to gravity x 2,
[2018-11-02] MEDS: FAMOTIDINE 20 MG TABLET JT SCH ×2 (11:59→20:33)
[2018-11-02] MEDS ORDERED: POTASSIUM CHLORIDE 20 MEQ POWDER PACKET GT ONE (13:00)
--- NOTE | 2018-11-02 15:00 | NUR ---
Pt residual 30cc, green and thin, tube feeding increased to 60cc/hr, goal of 65.
[2018-11-02] MEDS: MAGNESIUM SULFATE/D5W 100 ML IV SCH ×2 (15:14→16:35)
[2018-11-02] MEDS: MORPHINE SULFATE 2 MG/1 ML DISP.SYRIN IV PRN (17:19)
--- NOTE | 2018-11-02 17:42 | NUR ---
DR. RUFFIN's SCALE AND SKIP CAR OPERATOR at bedside, notified pt gastric tube has no lock to keep in place and becomes dislodged easily when turning, states she will text surgery team to check out apparatus. Notified night nurse did not chart the 10cc in for the flush to the pericoli drain.
[2018-11-02] MEDS ORDERED: HYDROCORTISONE RECTAL SUPP 25 MG EACH RC SCH (18:15)
--- NOTE | 2018-11-02 19:14 | NUR ---
report given TERESA Ware at bedside.
[2018-11-02] MEDS: IV D5/ 0.9% NACL 1,000 ML IV PRN (20:23)
[2018-11-02] MEDS: FLUCONAZOLE 200 MG/NS 100ML IV 100 MG in PREMIXED 1 EACH IV SCH (20:26)
[2018-11-03] VITALS (15 sets, daily range): BP systolic 98–126; BP diastolic 53–74
[2018-11-03] MEDS: METOCLOPRAMIDE HCL 10 MG/2 ML VIAL IV SCH ×3 (00:05→12:16)
[2018-11-03] MEDS: BLOOD SUGAR DIAGNOSTIC 1 EACH STRIP VI SCH ×3 (00:06→12:20)
[2018-11-03] MEDS: IPRATROPIUM BROMIDE 0.5 MG/2.5 ML NEBU NEB SCH ×3 (01:55→13:23)
--- NOTE | 2018-11-03 02:00 | NUR ---
Abdominal & coccyx dressing changed as ordered.
--- NOTE | 2018-11-03 02:23 | NUR ---
PT ON CONT TY VENT WITH TRACH IN PLACE AND SECURED, PT DOES ASSIST AT TIMES, CHECK CUFF, CHANGE HME AND GUZMAN, ALL VENT ALARMS GOOD, SUCTIONED VERY LIGHT PALE YELL TINGE SECRETIONS, SUCTION MOUTH , TRACH CARE DONE, NEB INLINE WITH ATROVENT, NO VENT CHANGES MADE, AMBU BAG AT BEDSIDE.Emily STRAUSSP Addendum: 11/03/18 at 0226 by PAIGE HOWELL RT Amended: Links added.
[2018-11-03] MEDS: VITAL AF 1.2 1,000 ML LIQUID JT PRN ×2 (03:13→12:13)
[2018-11-03] MEDS: POLYVINYL ALCOHOL OPHT DROPS 15 ML BOTTLE EACHEYE SCH ×2 (06:07→14:22)
[2018-11-03] MEDS: MORPHINE SULFATE 2 MG/1 ML DISP.SYRIN IV PRN ×2 (08:22→14:26)
[2018-11-03] MEDS: METOPROLOL TARTRATE 50 MG TABLET PEG SCH (08:23)
[2018-11-03] MEDS: LEVETIRACETAM IV 1,500 MG in IV DEXTROSE 5% 100 ML IV SCH (08:23)
[2018-11-03] MEDS: THERAHONEY GEL 1.5 OZ TUBE TOP PRN (08:25)
[2018-11-03] MEDS: SODIUM HYPOCHLORITE 0.125% 473 ML BOTTLE TP PRN (08:25)
[2018-11-03] MEDS: SODIUM HYPOCHLORITE 0.125% 473 ML BOTTLE TP SCH ×2 (08:26→08:27)
[2018-11-03] MEDS: THERAHONEY GEL 1.5 OZ TUBE TOP SCH (08:26)
[2018-11-03 09:19] LABS: BASOPHILS % (AUTO) 0.3 % (0.0-2.0); EOSINOPHILS # (AUTO) 0.1 K/uL (0.0-0.7); EOSINOPHILS % (AUTO) 1.4 % (0.0-7.0); HEMATOCRIT 25.4 % (36.7-47.1); HEMOGLOBIN 8.3 g/dL (12.5-16.3); LYMPHOCYTES % (AUTO) 12.7 % (20.5-51.5); MEAN CORPUSCULAR HEMOGLOBIN 26.1 uug (23.8-33.4); MEAN CORPUSCULAR HGB CONC 33 g/dL (32.5-36.3); MONOCYTES # (AUTO) 0.5 K/uL (2.0-10.0); MONOCYTES % (AUTO) 7.2 % (0.0-11.0); NEUTROPHILS % (AUTO) 78.4 % (38.5-71.5); PLATELET COUNT (AUTO) 201 K/uL (152-348); RED BLOOD CELL COUNT(AUTO) 3.18 MIL/uL (4.06-5.63); WHITE BLOOD COUNT (AUTO) 7.6 K/uL (3.6-10.2)
[2018-11-03 09:57] LABS: CREATININE 0.7 mg/dL (0.6-1.3); PHOSPHOROUS 2.8 mg/dL (2.5-4.9); POTASSIUM 3.5 mmol/L (3.5-5.1)
[2018-11-03] MEDS: FAMOTIDINE 20 MG TABLET JT SCH (11:39)
--- NOTE | 2018-11-03 17:43 | NUR ---
PATIENT RECEIVED ON TY VENTILATOR. CURRENT SETTINGS ARE AC 12, VT 500, PEEP +5, FIO2 30%. NO CHANGES MADE AT THIS TIME. TRACH IS PATENT AND SECURED VIA TRACH TIES. Q6 ATROVENT TX ADMINISTERED ORDERED. HME CHANGED NEEDED. AMBU BAG AND BACK UP TRACH ARE AT BEDSIDE. SUCTIONED MODERATE AMOUNT OF THICK, YELLOW SECRETIONS. VENT IS PLUGGED INTO EMERGENCY OUTLET. VENT ALARMS CHECKED, ARE ON AND FUNCTIONING PROPERLY. NO S/S OF RESPIRATORY DISTRESS NOTED.WILL CONTINUE TO MONITOR THROUGHOUT SHIFT. Addendum: 11/03/18 at 1834 by ERICKA FRANKS RT INTERVENTION DONE AT 0732
--- NOTE | 2018-11-03 18:20 | NUR ---
PT TRANSFERRED TO SUB-ACUTE 4TH FLOOR ROOM 421 WITH NO COMPLICATIONS. AMBU BAG AND BACK UP TRACH AT BEDSIDE DURING TRANSFER. PLACED ON HT-50 VENTILATOR WITH SETTINGS OF AC 12, VT 500, PEEP +5, 2LPM O2 BLEED-IN. TOLERATING WELL. VENT ALARMS SET, ARE ON AND AUDIBLE. AMBU BAG AND BACK UP TRACH REMAIN AT BEDSIDE. VENT PLUGGED INTO RED EMERGENCY OUTLET. NO S/S OF RESPIRATORY DISTRESS NOTED. WILL ENDORSE TO NEXT SHIFT.
[2018-11-03] MEDS ORDERED: LEVETIRACETAM 500 MG/5 ML LIQUID UDC PEG SCH (21:00)
== END 2018-11-03 18:20 | DRG 710 ==
LOC: ER 11:39 → TELE-TD3 15:55 → CCU 10-02 21:15 → TELE-TD3 10-06 15:15 → CCU 10-11 19:35 → TELE-TD3 10-14 15:51 → CCU 10-15 20:45 → DOU 10-16 17:20 → TELE-TD 10-16 17:39 → TELE-TD3 10-16 17:51 → CCU 10-20 16:09 → TELE-TD3 10-28 19:34 → CCU 10-29 18:11
PROVIDERS: ADMIT Internal Medicine; ATTEND Internal Medicine
PROC: 5A1955Z Respiratory Ventilation, Greater than 96 Consecutive Hours (ICD-10-PCS; principal; 2018-09-28)
PROC: 0DU907Z Supplement Duodenum with Autologous Tissue Substitute, Open Approach (ICD-10-PCS; 2018-10-03)
PROC: 0DJD4ZZ Inspection of Lower Intestinal Tract, Percutaneous Endoscopic Approach (ICD-10-PCS; 2018-10-03)
PROC: 30233N1 Transfusion of Nonautologous Red Blood Cells into Peripheral Vein, Percutaneous Approach (ICD-10-PCS; 2018-10-13)
PROC: 0DP68UZ Removal of Feeding Device from Stomach, Via Natural or Artificial Opening Endoscopic (ICD-10-PCS; 2018-10-14)
PROC: 0DH63UZ Insertion of Feeding Device into Stomach, Percutaneous Approach (ICD-10-PCS; 2018-10-14)
PROC: 0DHA3UZ Insertion of Feeding Device into Jejunum, Percutaneous Approach (ICD-10-PCS; 2018-10-21)
PROC: 0W9G30Z Drainage of Peritoneal Cavity with Drainage Device, Percutaneous Approach (ICD-10-PCS; 2018-10-25)
PROC: 0W9G30Z Drainage of Peritoneal Cavity with Drainage Device, Percutaneous Approach (ICD-10-PCS; 2018-10-31)
DX: A41.9 Sepsis, unspecified organism (principal); J96.21 Acute and chronic respiratory failure with hypoxia; J69.0 Pneumonitis due to inhalation of food and vomit; E43 Unspecified severe protein-calorie malnutrition; K65.1 Peritoneal abscess; N17.0 Acute kidney failure with tubular necrosis; K25.5 Chronic or unspecified gastric ulcer with perforation; R65.21 Severe sepsis with septic shock; J90 Pleural effusion, not elsewhere classified; G93.1 Anoxic brain damage, not elsewhere classified; K25.6 Chronic or unspecified gastric ulcer with both hemorrhage and perforation; J96.11 Chronic respiratory failure with hypoxia; L89.154 Pressure ulcer of sacral region, stage 4; N17.9 Acute kidney failure, unspecified; N39.0 Urinary tract infection, site not specified; I25.10 Atherosclerotic heart disease of native coronary artery without angina pectoris; E11.69 Type 2 diabetes mellitus with other specified complication; M46.28 Osteomyelitis of vertebra, sacral and sacrococcygeal region; D63.8 Anemia in other chronic diseases classified elsewhere; K65.9 Peritonitis, unspecified; K66.0 Peritoneal adhesions (postprocedural) (postinfection); Z86.74 Personal history of sudden cardiac arrest; B96.4 Proteus (mirabilis) (morganii) as the cause of diseases classified elsewhere; Z86.14 Personal history of Methicillin resistant Staphylococcus aureus infection; R13.10 Dysphagia, unspecified; L03.311 Cellulitis of abdominal wall; R65.20 Severe sepsis without septic shock; Z99.11 Dependence on respirator [ventilator] status; Z93.0 Tracheostomy status; R18.8 Other ascites; K94.23 Gastrostomy malfunction; M46.05 Spinal enthesopathy, thoracolumbar region; K66.8 Other specified disorders of peritoneum; E87.6 Hypokalemia; E87.0 Hyperosmolality and hypernatremia; E86.0 Dehydration; E83.42 Hypomagnesemia; E11.65 Type 2 diabetes mellitus with hyperglycemia; E83.52 Hypercalcemia; D68.59 Other primary thrombophilia; R00.0 Tachycardia, unspecified; I11.0 Hypertensive heart disease with heart failure; I50.9 Heart failure, unspecified; L89.894 Pressure ulcer of other site, stage 4; Z87.440 Personal history of urinary (tract) infections; Z79.01 Long term (current) use of anticoagulants; Z86.718 Personal history of other venous thrombosis and embolism; Z74.01 Bed confinement status; Z79.899 Other long term (current) drug therapy; Z87.11 Personal history of peptic ulcer disease
CPT/HCPCS: 36415; 36556; 36569; 36600; 70030-TC; 70450; 71045; 71275; 72192; 74018; 74150; 82652; 82803; 83605; 83735; 83970; 84100; 84478; 85025; 85730; 86850; 86900; 86901; 86920; 87040; 87070; 87075; 87086; 87205; 93005; 93307; 94002; 94003; 94640; 95819; A4217; A4649; A4663; C1769; C9113; G0378; J0330; J0360; J0690; J1450; J1815; J1940; J1953; J2185; J2250; J2270; J2354; J2405; J2543; J2765; J3010; J3370; J3475; J3480; J3490; J3590; J7030; J7040; J7042; J7050; J7060; J7120; J7131; P9016-BL; P9021; Q9963; Q9967

== ENCOUNTER 2018-11-03 18:58 | Inpatient (IN) | END 2019-04-15 23:59 | disposition still patient (30) | DRG 130 | DX: J96.11 Chronic respiratory failure with hypoxia (principal); K65.1 Peritoneal abscess; G93.1 Anoxic brain damage, not elsewhere classified; E43 Unspecified severe protein-calorie malnutrition; L89.154 Pressure ulcer of sacral region, stage 4; L89.814 Pressure ulcer of head, stage 4; G91.9 Hydrocephalus, unspecified; E11.69 Type 2 diabetes mellitus with other specified complication; Z86.74 Personal history of sudden cardiac arrest; D68.59 Other primary thrombophilia; K66.8 Other specified disorders of peritoneum; Z99.11 Dependence on respirator [ventilator] status; Z22.322 Carrier or suspected carrier of Methicillin resistant Staphylococcus aureus; Z93.1 Gastrostomy status; E87.6 Hypokalemia; R13.10 Dysphagia, unspecified; M46.28 Osteomyelitis of vertebra, sacral and sacrococcygeal region; B96.20 Unspecified Escherichia coli [E. coli] as the cause of diseases classified elsewhere; N39.0 Urinary tract infection, site not specified; D64.9 Anemia, unspecified; Z98.2 Presence of cerebrospinal fluid drainage device; Z46.2 Encounter for fitting and adjustment of other devices related to nervous system and special senses; H11.32 Conjunctival hemorrhage, left eye; I11.9 Hypertensive heart disease without heart failure; I25.10 Atherosclerotic heart disease of native coronary artery without angina pectoris; G96.0 Cerebrospinal fluid leak; Z74.01 Bed confinement status; Z86.718 Personal history of other venous thrombosis and embolism; Z87.11 Personal history of peptic ulcer disease; Z87.440 Personal history of urinary (tract) infections; Z93.0 Tracheostomy status; R21 Rash and other nonspecific skin eruption ==

== ENCOUNTER 2018-11-08 16:59 | Inpatient (IN) | payer MEDICAID ==
[~2018-11-08] VITALS: Ht 167.6 cm; Wt 72.1 kg
[~2018-11-08 16:59] MED LIST changes: -ACET160S2 GT; -ACET160S2 PO; -ATOR10TA GT; -BLOO-140 IN; +FLUC200T8 PO; +HYDR-3326 GT; -METO5SOL GT; +METO5VIA3 IV; +NEOM1PAC2 TP; -PIPE3.379 IV; +THERAHONEY GEL TOP; -VALP250S3 GT
--- NOTE | 2018-11-08 17:12 | NUR ---
PT BIB NURSING STAFF FROM IN-HOUSE SUB-ACUTE UNIT C/O FEVER. PER REPORT, PT HAD A PERFORATED PYLORIC ULCER AND SUBSEQUENTLY HAD A OPEN EXPLORATORY ABD SURGERY ON 10/03/18. SINCE THEN, THE PT HAS HAD MULTIPLE ABD/PELVIC FLUID COLLECTION VIA 2 ACCORDION DRAINS ON RUQ AND RLQ. ABD IS FIRM TO TOUCH AND THERE IS A LARGE VERTICAL SURGICAL ABD WOUND. SLOUGHING PRESENT IN THE VERTICAL ABD WOUND. PT HAS A MARIO CATH IN PLACE, ALONG W/ A TRIPLE LUMEN PICC LINE ON RUE. PT HAS A TRACH AND IS VENT DEPENDENT. PLEASE REFER TO RT NOTES FOR VENT SETTINGS. ALL LINES INTACT AND DRAINING.
[2018-11-08] MEDS ORDERED: PIPERACILLIN SODIUM/TAZOBACTAM 3.375 G in IV DEXTROSE 5% 50 ML IV ONE (17:15)
[2018-11-08] MEDS ORDERED: PIPERACILLIN/TAZOBACTAM/D5W 50 ML IV ONE (17:24)
[2018-11-08] MEDS ORDERED: ZINC220C8 JT (17:26)
[2018-11-08] MEDS ORDERED: POLY15DR27 OP (17:26)
[2018-11-08] MEDS ORDERED: RIVA10TA GT (17:26)
[2018-11-08] MEDS ORDERED: IV NORMAL SALINE 500 ML BAG IV ONE (17:30)
[2018-11-08 17:33] LABS: *BILIRUBIN,URIN NEGATIVE (NEGATIVE); *BLOOD, URINE 2+ (NEGATIVE); *CLARITY,URINE SLIGHTLY CLOUDY (CLEAR); *KETONES,URINE NEGATIVE (NEGATIVE); *UROBILINOGEN,URINE 0.2 E.U./dl (NORMAL); LEUKOCYTE ESTERASE ,URINE NEGATIVE (NEGATIVE); NITRITE, URINE NEGATIVE (NEGATIVE); PH,URINE 5.5 (5.0-8.0); UGLUCOSE NEGATIVE (NEGATIVE)
[2018-11-08 17:35] LABS: BASOPHILS # (AUTO) 0.1 K/uL (0.0-8.0); BASOPHILS % (AUTO) 0.6 % (0.0-2.0); EOSINOPHILS % (AUTO) 0.5 % (0.0-7.0); HEMATOCRIT 26.2 % (36.7-47.1); HEMOGLOBIN 8.4 g/dL (12.5-16.3); LYMPHOCYTES # (AUTO) 1.1 K/uL (20.0-40.0); LYMPHOCYTES % (AUTO) 12.6 % (20.5-51.5); MEAN CORPUSCULAR HEMOGLOBIN 25.2 uug (23.8-33.4); MEAN CORPUSCULAR HGB CONC 32 g/dL (32.5-36.3); MEAN CORPUSCULAR VOLUME 78.4 fL (73.0-96.2); MONOCYTES # (AUTO) 0.7 K/uL (2.0-10.0); MONOCYTES % (AUTO) 8.3 % (0.0-11.0); NEUTROPHILS # (AUTO) 6.6 K/uL (1.8-8.9); PLATELET COUNT (AUTO) 290 K/uL (152-348); RED BLOOD CELL COUNT(AUTO) 3.35 MIL/uL (4.06-5.63); WHITE BLOOD COUNT (AUTO) 8.4 K/uL (3.6-10.2)
[2018-11-08] MEDS ORDERED: ACET650T10 JT (17:38)
[2018-11-08] MEDS ORDERED: HYDR-3980 PO (17:38)
[2018-11-08] MEDS ORDERED: FLUC100T8 JT (17:38)
[2018-11-08] MEDS ORDERED: FAMO20TA8 JT (17:38)
[2018-11-08 17:42] LABS: CARBON DIOXIDE 31 mmol/L (21-32); CHLORIDE 105 mmol/L (98-107); CREATININE 0.5 mg/dL (0.6-1.3); GLUCOSE 144 mg/dL (74-106); POTASSIUM 3.6 mmol/L (3.5-5.1); UREA NITROGEN, BLOOD 20 mg/dL (7-18)
--- NOTE | 2018-11-08 17:53 | NUR ---
VENT SETTING TIDAL VOLUME 500, RR 12, PEEP 5, 2LPM 28% O2.
[2018-11-08 17:55] LABS: ALANINE AMINOTRANSFERASE 13 U/L (16-63); ALKALINE PHOSPHATASE 175 U/L (50-136); ASPARTATE AMINOTRANSFERASE 12 U/L (15-37); BILIRUBIN,DIRECT 0.1 mg/dL (0.0-0.2); BILIRUBIN,TOTAL 0.5 mg/dL (0.2-1.0); TOTAL PROTEIN, SERUM 6.8 g/dL (6.4-8.2)
--- NOTE | 2018-11-08 17:57 | NUR ---
PAGED BRAIN FOR PANEL CALL.
--- NOTE | 2018-11-08 18:01 | NUR ---
MARGARITO GILL SPEAKING W/ EDREK NGUEYN DNP.
[2018-11-08 18:14] LABS: *COLOR,URINE DARK YELLOW (YELLOW)
[2018-11-08] MEDS ORDERED: ACETAMINOPHEN 650 MG SUPP.RECT RC ONE ×2 (18:15→18:18)
--- NOTE | 2018-11-08 18:24 | NUR ---
PER TEODORO ROBERTS, PT IS LEAKING FLUID FROM FIRST PEG SITE
[2018-11-08 18:27] LABS: CALCIUM OXALATE CRYSTALS,UR MANY /HPF (NONE SEEN); MUCUS,URINE MANY /LPF (0-FEW); URINE AMORPHOUS URATE MODERATE /HPF; WBC,URINE 0-3 /HPF (0-3)
[2018-11-08] MEDS ORDERED: DIATR MEGLU/DIATRIZOATE SODIUM 30 ML SOLUTION ONE (18:40)
--- NOTE | 2018-11-08 19:02 | NUR ---
PATIENT RECEIVED ON VENT WITH SETTINGS OF AC12, VT500, +5, 28% FIO2. VENT ALARMS ARE ON AND AUDIBLE. VENT IS PLUGGED INTO RED EMERGENCY OUTLET. NO SOB NOTED THROUGHOUT SHIFT. SX'D PRN. PATIENT HAS A SHILEY 6DCT TRACH TUBE IN PLACE, PATENT AND SECURED WITH A FOAM TRACH TIE. AMBUBAG/BACK UP TRACH TUBE AT BEDSIDE. ORAL AND TRACH CARE DONE. WILL CONTINUE TO MONITOR AND REPORT ANY CHANGES.
--- NOTE | 2018-11-08 19:11 | NUR ---
SHIFT REPORT GIVEN TO HAYDER Biggs RN.
--- NOTE | 2018-11-08 20:15 | NUR ---
Pt out of ER for CT.
--- NOTE | 2018-11-08 20:35 | NUR ---
Pt back to ER from CT.
[2018-11-08] MEDS ORDERED: ENALAPRILAT DIHYDRATE 1.25 MG/1 ML VIAL IV PRN (21:30)
[2018-11-08] MEDS ORDERED: ACETAMINOPHEN 650 MG SUPP.RECT RC PRN (21:30)
[2018-11-08] MEDS ORDERED: MORPHINE SULFATE 2 MG/1 ML DISP.SYRIN IV PRN (21:30)
[2018-11-08] MEDS ORDERED: ONDANSETRON 4 MG/2 ML VIAL IV PRN (21:30)
--- NOTE | 2018-11-08 21:46 | NUR ---
Report given to Jenelle MOORE BRITTANIE.
[2018-11-08] MEDS ORDERED: LORAZEPAM 2 MG/1 ML VIAL IV PRN (22:00)
[2018-11-08] MEDS ORDERED: MEROPENEM 500 MG in IV NORMAL SALINE 50 ML IV SCH (22:00)
[2018-11-08 22:30] VITALS: BP 135/70
--- NOTE | 2018-11-08 22:30 | NUR ---
ADMITTED FROM ER VIA BED FROM ER W/ ADMITTING DX OF SEPSIS. TRACH CONNECTED TO VENT W/ SETTINGS OF AC-12, TV-500, FIO2-28%, PEEP-+5 ,W/ O2 SAT OF 100%. ABD. WOUND RECEIVED WITHOUT DRSG, CLEANED WOUND & WET TO DRY DRSG APPLIED. G-TUBE CONNECTED TO LOW CONT. SUCTION W/ GREENISH DRAINAGE. J-TUBE CLAMPED. SACRAL WOUND CLEANED W/ MELI APRIL, THERWALTONEY APRIL. APPLIED & DRSG APPLIED. PICC LINE 3 PORTS INTACT & PATENT ON WILMA. REPOSITIONED PT.& SUCTIONED BY RT.
[2018-11-08] MEDS ORDERED: VANCOMYCIN IV 1,250 MG in IV DEXTROSE 5% 500 ML IV ONE (23:30)
[2018-11-08] MEDS ORDERED: MEROPENEM 500 MG in IV NORMAL SALINE 50 ML IV ONE (23:30)
[2018-11-08] MEDS: IV D5 1/2 NS 1000 ML 1,000 ML IV PRN (23:45)
[2018-11-08] MEDS ORDERED: VANCOMYCIN 1000 MG VIAL ONE (23:52)
[2018-11-08] MEDS ORDERED: MEROPENEM 500 MG VIAL IV ONE (23:53)
[2018-11-08] MEDS ORDERED: VANCOMYCIN HCL 500 MG VIAL ONE (23:53)
[2018-11-09] VITALS (14 sets, daily range): BP systolic 102–135; BP diastolic 48–70
--- NOTE | 2018-11-09 01:00 | NUR ---
AM CARE DONE. TRACH CARE DONE. REPOSITIONED ON HIS W/ HOB ELEVATED.
[2018-11-09] MEDS: ALBUTEROL SULFATE 2.5 MG/3 ML NEBU IH SCH ×4 (01:38→18:22)
[2018-11-09] MEDS: IPRATROPIUM BROMIDE 0.5 MG/2.5 ML NEBU NEB SCH ×4 (01:38→18:22)
--- NOTE | 2018-11-09 05:00 | NUR ---
AM CARE DONE. ORAL CARE DONE. TRACH CARE DONE. HAD ANOTHER MOD. SOFT BROWNISH STOOL. REPOSITIONED ON HIS OPPOSITE SIDE W/ HOB ELEVATED.
[2018-11-09 06:23] LABS: BASOPHILS % (AUTO) 0.6 % (0.0-2.0); EOSINOPHILS # (AUTO) 0.1 K/uL (0.0-0.7); EOSINOPHILS % (AUTO) 1.7 % (0.0-7.0); LYMPHOCYTES # (AUTO) 0.9 K/uL (20.0-40.0); LYMPHOCYTES % (AUTO) 18.3 % (20.5-51.5); MEAN CORPUSCULAR HEMOGLOBIN 25.4 uug (23.8-33.4); MEAN CORPUSCULAR HGB CONC 32 g/dL (32.5-36.3); MONOCYTES # (AUTO) 0.5 K/uL (2.0-10.0); MONOCYTES % (AUTO) 10.6 % (0.0-11.0); NEUTROPHILS # (AUTO) 3.2 K/uL (1.8-8.9); NEUTROPHILS % (AUTO) 68.8 % (38.5-71.5); PLATELET COUNT (AUTO) 224 K/uL (152-348); RED BLOOD CELL COUNT(AUTO) 2.62 MIL/uL (4.06-5.63); WHITE BLOOD COUNT (AUTO) 4.7 K/uL (3.6-10.2)
[2018-11-09 06:44] LABS: ALANINE AMINOTRANSFERASE 8 U/L (16-63); ALKALINE PHOSPHATASE 140 U/L (50-136); ASPARTATE AMINOTRANSFERASE 8 U/L (15-37); BILIRUBIN,TOTAL 0.5 mg/dL (0.2-1.0); CARBON DIOXIDE 31 mmol/L (21-32); CHLORIDE 107 mmol/L (98-107); CREATININE 0.5 mg/dL (0.6-1.3); GLUCOSE 120 mg/dL (74-106); MAGNESIUM 1.6 mg/dL (1.8-2.4); PHOSPHOROUS 3.7 mg/dL (2.5-4.9); POTASSIUM 3.2 mmol/L (3.5-5.1); TOTAL PROTEIN, SERUM 5.8 g/dL (6.4-8.2); UREA NITROGEN, BLOOD 18 mg/dL (7-18)
[2018-11-09 06:55] LABS: HEMATOCRIT 20.7 % (36.7-47.1)
[2018-11-09 06:59] LABS: HEMOGLOBIN 6.6 g/dL (12.5-16.3)
[2018-11-09] MEDS ORDERED: MAGNESIUM SULFATE/D5W 100 ML IV SCH (07:30)
[2018-11-09 07:46] LABS: EOSINOPHILS % (MANUAL) 2 % (0-8); LYMPHOCYTES % (MANUAL) 28 % (20-40); MONOCYTES % (MANUAL) 5 % (2-10); NEUTROPHILS % (MANUAL) 65 % (42-75)
--- NOTE | 2018-11-09 07:46 | NUR ---
PT REC'D ON TY VENT, TOLERATING CURRENT SETTINGS WELL. NO S/S SOB/DISTRESS NOTED AT THIS TIME. ORAL CARE DONE. VENT ALARMS CHECKED AND RESET. BVM AND BACKUP TRACH AT BEDSIDE.
[2018-11-09] MEDS ORDERED: [UNRECOGNIZED DRUG - OTHER] TOP (08:19)
[2018-11-09] MEDS ORDERED: METO5SOL2 JT (08:19)
[2018-11-09] MEDS ORDERED: NUT.237L65 PO (08:20)
--- NOTE | 2018-11-09 08:23 | NUR ---
TEODORO NGUYEN IN NOTED ABNORMAL LABS WITH ORDER. WILL TRANSFUSE 1 UNIT PRBC
[2018-11-09] MEDS: FUROSEMIDE 20 MG/2 ML VIAL IV SCH (08:30)
[2018-11-09] MEDS ORDERED: PANTOPRAZOLE SODIUM 40 MG VIAL IV SCH (09:00)
[2018-11-09] MEDS: LEVETIRACETAM IV 1,500 MG in IV DEXTROSE 5% 100 ML IV SCH ×2 (09:08→20:41)
--- NOTE | 2018-11-09 10:03 | NUR ---
Clinical Pharmacy Note: Vancomycin Dosing per Pharmacy Subjective: Vancomycin IV to start on this 63 yo male patient (resident of ) for documented infection. Objective: BUN 18/Scr 0.5 WBC 4.7 Temperature 98.1 ht 167 cm wt 75.7 kg Assessment/Plan: Patient received vanco 1250mg IVPB x1 today at 0030. Will start vancomycin 1250mg IVPB Q15hr for a predicted vancomycin steady state trough level of 15 mcg/ml. 2nd dose today at 1530. Will draw a vancomycin trough level prior to the 4th dose of vancomycin (not ordered yet). Will monitor renal function and adjust vancomycin dose, if needed, should renal function change significantly. Will follow daily.
--- NOTE | 2018-11-09 10:34 | NUR ---
BLOOD TRANSFUSION STARTED, CLOSELY MONITORED
--- NOTE | 2018-11-09 10:58 | NUR ---
VITAL SIGNS STABLE NO SS OF TRANSFUSION REACTION
[2018-11-09] MEDS: POTASSIUM CHLORIDE 50 ML IV SCH ×4 (11:30→15:50)
[2018-11-09] MEDS: MEROPENEM 1 G in IV NORMAL SALINE 100 ML IV SCH (12:42)
--- NOTE | 2018-11-09 13:32 | NUR ---
BLOOD TRANSFUSION COMPLETED WITHOUT ANY REACTION, VITAL SIGNS STABLE
[2018-11-09] MEDS ORDERED: MEROPENEM 1 G in IV NORMAL SALINE 100 ML IV SCH (14:00)
[2018-11-09] MEDS: POLYVINYL ALCOHOL OPHT DROPS 15 ML BOTTLE EACHEYE SCH ×2 (15:05→21:50)
[2018-11-09] MEDS: VANCOMYCIN IV 1,250 MG in IV DEXTROSE 5% 500 ML IV SCH (15:50)
--- NOTE | 2018-11-09 20:00 | NUR ---
RECEIVED PT OPENS HIS EYES TO NOXIOUS STIMULI. TRACH TO VENT W/ SETTINGS OF AC-12, TV-500,FIO2-28%, PEEP-+5, W/ O2 SAT OF 98%. IVF D51/2NS @ 60CC/HR VIA PICC LINE ON WILMA. PICC LINE PORTS ARE PATENT. SUCTIONED VIA TRACH & ORALLY W/ SCANTY TANNISH THICK MUCOUS. REPOSITIONED W/ HOB ELEVATED. AFEBRILE, BP STABLE.
[2018-11-09] MEDS ORDERED: FLUCONAZOLE 200 MG/100 ML PIGGYBACK ONE (20:02)
[2018-11-09] MEDS: FLUCONAZOLE 200 MG/NS 100ML IV 100 MG in PREMIXED 1 EACH IV SCH (20:03)
[2018-11-09] MEDS: FAMOTIDINE. 20 MG/2 ML VIAL IV SCH (20:41)
[2018-11-09] MEDS: Z GUARD REMEDY PASTE 57 GM TUBE TOP SCH (20:42)
--- NOTE | 2018-11-09 20:45 | NUR ---
PT RECEIVED TRACH TO VENT ON CMV, VENT PARAMETERS AND ALARMS CHECKED, ALARMS ARE AUDIBLE. BETH #6 TRACH IS PATENT AND SECURE. PT IS ON A TY VENT ON SETTINGS OF A/C 12, VT 500, PEEP +5, AND 28% FIO2. PT IS TOLERATING VENT SETTINGS WELL, NO SOB NOTED. HME CHANGED. BVM AND BACK-UP TRACH AT BEDSIDE. VENT PLUGGED INTO RED OUTLET. SUCTION PRN. WILL CONTINUE TO MONITOR.
[2018-11-09] MEDS ORDERED: Medication Not On Formulary EA (Arginine/Ascorbate Sod/Vite AC (Arginaid Powder) 1 EACH) GT SCH (21:00)
--- NOTE | 2018-11-09 22:00 | NUR ---
HS CARE DONE. ORAL CARE DONE. REPOSITIONED & SUCTIONED.
[2018-11-10] VITALS (7 sets, daily range): BP systolic 100–116; BP diastolic 52–68
--- NOTE | 2018-11-10 | NUR ---
DECUB CARE ON SACRAL AREA DONE.
[2018-11-10] MEDS: MEROPENEM 1 G in IV NORMAL SALINE 100 ML IV SCH ×2 (00:18→12:39)
--- NOTE | 2018-11-10 01:00 | NUR ---
ABDOMINAL DRSG CHANGED , WET TO DRY.
[2018-11-10] MEDS: IPRATROPIUM BROMIDE 0.5 MG/2.5 ML NEBU NEB SCH ×4 (01:03→19:11)
[2018-11-10] MEDS: ALBUTEROL SULFATE 2.5 MG/3 ML NEBU IH SCH ×4 (01:03→19:11)
--- NOTE | 2018-11-10 04:00 | NUR ---
AM CARE DONE. TRACH CARE DONE. ORAL CARE DONE. REPOSITIONED W/ HOB ELEVATED & SUCTIONED.
[2018-11-10] MEDS: IV D5 1/2 NS 1000 ML 1,000 ML IV PRN ×2 (04:40→22:08)
[2018-11-10] MEDS: POLYVINYL ALCOHOL OPHT DROPS 15 ML BOTTLE EACHEYE SCH ×3 (05:25→21:51)
[2018-11-10] MEDS: VANCOMYCIN IV 1,250 MG in IV DEXTROSE 5% 500 ML IV SCH ×2 (05:52→21:30)
[2018-11-10] MEDS ORDERED: NORMAL SALINE FLUSH 10 ML DISP.SYRIN IV PRN (06:15)
[2018-11-10 07:05] LABS: CARBON DIOXIDE 27 mmol/L (21-32); CHLORIDE 106 mmol/L (98-107); CREATININE 0.6 mg/dL (0.6-1.3); GLUCOSE 120 mg/dL (74-106); POTASSIUM 3.4 mmol/L (3.5-5.1); UREA NITROGEN, BLOOD 13 mg/dL (7-18)
--- NOTE | 2018-11-10 08:00 | NUR ---
NO ACUTE CHANGE CONTINUE WITH IV ANTIBIOTIC ORDERED.
[2018-11-10] MEDS: FAMOTIDINE. 20 MG/2 ML VIAL IV SCH ×2 (08:26→20:28)
[2018-11-10] MEDS: FUROSEMIDE 20 MG/2 ML VIAL IV SCH (08:26)
[2018-11-10] MEDS: Z GUARD REMEDY PASTE 57 GM TUBE TOP SCH ×2 (08:27→20:51)
[2018-11-10] MEDS: LEVETIRACETAM IV 1,500 MG in IV DEXTROSE 5% 100 ML IV SCH ×2 (08:27→20:28)
[2018-11-10 10:21] LABS: BASOPHILS % (AUTO) 0.4 % (0.0-2.0); EOSINOPHILS # (AUTO) 0.1 K/uL (0.0-0.7); EOSINOPHILS % (AUTO) 1.4 % (0.0-7.0); HEMATOCRIT 22.6 % (36.7-47.1); HEMOGLOBIN 7.5 g/dL (12.5-16.3); LYMPHOCYTES # (AUTO) 0.7 K/uL (20.0-40.0); LYMPHOCYTES % (AUTO) 13.7 % (20.5-51.5); MEAN CORPUSCULAR HEMOGLOBIN 25.7 uug (23.8-33.4); MEAN CORPUSCULAR HGB CONC 33 g/dL (32.5-36.3); MEAN CORPUSCULAR VOLUME 77.2 fL (73.0-96.2); MONOCYTES # (AUTO) 0.5 K/uL (2.0-10.0); MONOCYTES % (AUTO) 8.7 % (0.0-11.0); NEUTROPHILS # (AUTO) 3.9 K/uL (1.8-8.9); NEUTROPHILS % (AUTO) 75.8 % (38.5-71.5); PLATELET COUNT (AUTO) 226 K/uL (152-348); RED BLOOD CELL COUNT(AUTO) 2.93 MIL/uL (4.06-5.63); WHITE BLOOD COUNT (AUTO) 5.2 K/uL (3.6-10.2)
[2018-11-10] MEDS: POTASSIUM CHLORIDE 50 ML IV SCH ×2 (10:31→11:16)
--- NOTE | 2018-11-10 11:14 | NUR ---
Clinical Pharmacy Note: Vancomycin Dosing per Pharmacy Subjective: Vancomycin IV to continue on this 63 yo male patient (resident of ) for documented infection, recurrent fevers and desat. Objective: BUN 13/Scr 0.6 WBC 4.7 (11/09) Temperature 99.8 ht 167 cm wt 75.7 kg Trough pending tonight at 2100 Assessment/Plan: Will continue vancomycin 1250mg IVPB Q15hr for a predicted vancomycin steady state trough level of 15 mcg/ml. Vancomycin trough level prior to the 4th dose of vancomycin ordered and due tonight at 2100. RN endorsed to hold tonight's dose if supratherapeutic. Will check level in am and adjust as needed. Will follow
[2018-11-10] MEDS: NORMAL SALINE FLUSH 10 ML DISP.SYRIN IV SCH ×2 (14:02→21:47)
--- NOTE | 2018-11-10 14:23 | NUR ---
CONTINUE CURRENT TX PLAN. REMAINS ST ON MONITOR AFEBRILE
[2018-11-10] MEDS: FLUCONAZOLE 200 MG/NS 100ML IV 100 MG in PREMIXED 1 EACH IV SCH (20:28)
[2018-11-10] MEDS: THERAHONEY GEL 1.5 OZ TUBE TOP SCH (20:52)
[2018-11-10] MEDS: IV NORMAL SALINE 250 ML IV PRN (23:55)
[2018-11-11] VITALS (9 sets, daily range): BP systolic 103–122; BP diastolic 59–72
[2018-11-11] MEDS: MEROPENEM 1 G in IV NORMAL SALINE 100 ML IV SCH ×3 (00:41→23:30)
[2018-11-11] MEDS: ALBUTEROL SULFATE 2.5 MG/3 ML NEBU IH SCH ×4 (01:22→19:07)
[2018-11-11] MEDS: IPRATROPIUM BROMIDE 0.5 MG/2.5 ML NEBU NEB SCH ×4 (01:22→19:07)
--- NOTE | 2018-11-11 01:22 | NUR ---
PATIENT RECEIVED ON A TY VENTILATOR WITH THE FOLLOWING SETTINGS THAT ARE CHARTED ON THE MECHANICAL VENTILATOR NOTES. TRACH TUBE IS PATENT AND SECURED W/ TRACH TIES. HME CHANGED. HHN TX GIVEN PER MD ORDER'S AND WAS TOLERATED WELL W/ NO ADVERSE REACTIONS. SUCTIONED SMALL AMOUNTS OF THIN WHITE/YELLOW SECRETIONS. VENTILATOR ALARMS ARE ON AND LOUD. VENTILATOR IS PLUGGED IN THE RED EMERGENCY OUTLET. SPARE TRACH AND AMBU IS BY BEDSIDE. PATIENT IS TOLERATING CURRENT VENTILATOR SETTINGS WELL AT THIS TIME WITH NO SOB NOTED. WILL CONTINUE TO MONITOR.
[2018-11-11] MEDS: NORMAL SALINE FLUSH 10 ML DISP.SYRIN IV SCH ×3 (06:09→21:15)
[2018-11-11] MEDS: POLYVINYL ALCOHOL OPHT DROPS 15 ML BOTTLE EACHEYE SCH ×3 (06:09→22:27)
[2018-11-11 07:01] LABS: BASOPHILS % (AUTO) 0.6 % (0.0-2.0); EOSINOPHILS # (AUTO) 0.1 K/uL (0.0-0.7); EOSINOPHILS % (AUTO) 2.1 % (0.0-7.0); HEMATOCRIT 22.6 % (36.7-47.1); LYMPHOCYTES # (AUTO) 0.8 K/uL (20.0-40.0); LYMPHOCYTES % (AUTO) 15.4 % (20.5-51.5); MEAN CORPUSCULAR HEMOGLOBIN 25.9 uug (23.8-33.4); MEAN CORPUSCULAR HGB CONC 33 g/dL (32.5-36.3); MEAN CORPUSCULAR VOLUME 78.7 fL (73.0-96.2); MONOCYTES # (AUTO) 0.4 K/uL (2.0-10.0); MONOCYTES % (AUTO) 7.2 % (0.0-11.0); NEUTROPHILS # (AUTO) 3.7 K/uL (1.8-8.9); NEUTROPHILS % (AUTO) 74.7 % (38.5-71.5); PLATELET COUNT (AUTO) 221 K/uL (152-348); RED BLOOD CELL COUNT(AUTO) 2.87 MIL/uL (4.06-5.63); WHITE BLOOD COUNT (AUTO) 4.9 K/uL (3.6-10.2)
[2018-11-11 07:08] LABS: HEMOGLOBIN 7.4 g/dL (12.5-16.3)
--- NOTE | 2018-11-11 07:30 | NUR ---
PT RECEIVED ON CONTINUOUS VENT AC 12 VT 500 PEEP 5 FIO2 28%. BS DIMINISHED. TRACH IN PLACED AND SECURED WITH TRACH TIE. BACK UP TRACH AND AMBU BAG AT BEDSIDE. IN LINE TX GIVEN WITH UD ALBUTEROL + UD ATROVENT ORDERED. TOLERATED TX WELL WITHOUT ADVERSE REACTION NOTED. SUCTION PRN. VENT CHECKED, ALARMS WORKING WELL AND AUDIBLE. NO SIGNS OF RESPIRATORY DISTRESS NOTED AT THIS TIME. WILL CONTINUE TO MONITOR.
[2018-11-11] MEDS ORDERED: VITAL AF 1.2 1,000 ML LIQUID GT PRN (08:15)
[2018-11-11 08:19] LABS: BILIRUBIN,TOTAL 0.3 mg/dL (0.2-1.0); CREATININE 0.7 mg/dL (0.6-1.3); MAGNESIUM 1.8 mg/dL (1.8-2.4); PHOSPHOROUS 3.5 mg/dL (2.5-4.9); POTASSIUM 3.2 mmol/L (3.5-5.1); TOTAL PROTEIN, SERUM 5.9 g/dL (6.4-8.2)
[2018-11-11] MEDS: LEVETIRACETAM IV 1,500 MG in IV DEXTROSE 5% 100 ML IV SCH ×2 (08:26→20:49)
[2018-11-11] MEDS: VANCOMYCIN IV 1,250 MG in IV DEXTROSE 5% 500 ML IV SCH (08:28)
[2018-11-11] MEDS: Z GUARD REMEDY PASTE 57 GM TUBE TOP SCH ×2 (08:29→20:52)
[2018-11-11] MEDS: SODIUM HYPOCHLORITE 0.125% 473 ML BOTTLE TP SCH (08:30)
[2018-11-11] MEDS: THERAHONEY GEL 1.5 OZ TUBE TOP SCH ×2 (08:30→20:53)
[2018-11-11] MEDS: FUROSEMIDE 20 MG/2 ML VIAL IV SCH (08:31)
[2018-11-11] MEDS: FAMOTIDINE. 20 MG/2 ML VIAL IV SCH ×2 (08:33→20:50)
[2018-11-11] MEDS: POTASSIUM CHLORIDE 50 ML IV SCH ×2 (10:13→11:09)
--- NOTE | 2018-11-11 11:10 | NUR ---
Clinical Pharmacy Note: Vancomycin Dosing per Pharmacy Subjective: Vancomycin IV to continue on this 63 yo male patient (resident of ) for documented infection, recurrent fevers and desat. Objective: BUN 9/Scr 0.7 WBC 4.9 Temperature 98.2 ht 167 cm wt 75.7 kg Trough 11/10 @2100: 20.4 Assessment/Plan: Based on trough, adjusted regimen to vancomycin 1250mg q18h for new estimated trough of 15.7, first dose today at 0900. Will check trough before 4th scheduled dose of new regimen (not ordered yet). Will follow renal function and adjust if were to become unstable. Otherwise will follow level accordingly. Will follow
[2018-11-11] MEDS: IV D5 1/2 NS 1000 ML 1,000 ML IV PRN (16:27)
[2018-11-11] MEDS: FLUCONAZOLE 200 MG/NS 100ML IV 100 MG in PREMIXED 1 EACH IV SCH (19:44)
--- NOTE | 2018-11-11 20:16 | NUR ---
Pt rec'd on Muñoz settings AC 12, VT 500, PEEP +5 and FIO2-28%. No resp. distress noted. Oral care done. Shiley 6 patent/secure; B/U Shiley 6 + BVM at bedside. Pt to monitored throughout the shift, PRN SX and adm'd resp neb txs per MD orders. Muñoz alarm parameters have been checked and remain audible.
[2018-11-12] VITALS (8 sets, daily range): BP systolic 115–177; BP diastolic 68–97
[2018-11-12] MEDS: IPRATROPIUM BROMIDE 0.5 MG/2.5 ML NEBU NEB SCH ×4 (00:40→20:44)
[2018-11-12] MEDS: ALBUTEROL SULFATE 2.5 MG/3 ML NEBU IH SCH ×4 (00:40→20:44)
[2018-11-12] MEDS: VANCOMYCIN IV 1,250 MG in IV DEXTROSE 5% 500 ML IV SCH (02:12)
[2018-11-12] MEDS: NORMAL SALINE FLUSH 10 ML DISP.SYRIN IV SCH ×3 (05:02→21:31)
[2018-11-12] MEDS: POLYVINYL ALCOHOL OPHT DROPS 15 ML BOTTLE EACHEYE SCH ×3 (05:03→20:53)
[2018-11-12 07:58] LABS: CARBON DIOXIDE 27 mmol/L (21-32); CHLORIDE 106 mmol/L (98-107); CREATININE 0.6 mg/dL (0.6-1.3); GLUCOSE 165 mg/dL (74-106); MAGNESIUM 1.7 mg/dL (1.8-2.4); PHOSPHOROUS 3.3 mg/dL (2.5-4.9); POTASSIUM 3.3 mmol/L (3.5-5.1); UREA NITROGEN, BLOOD 6 mg/dL (7-18)
[2018-11-12 08:23] LABS: BASOPHILS % (AUTO) 0.3 % (0.0-2.0); EOSINOPHILS # (AUTO) 0.1 K/uL (0.0-0.7); EOSINOPHILS % (AUTO) 0.9 % (0.0-7.0); HEMATOCRIT 30.1 % (36.7-47.1); HEMOGLOBIN 9.9 g/dL (12.5-16.3); LYMPHOCYTES # (AUTO) 0.8 K/uL (20.0-40.0); LYMPHOCYTES % (AUTO) 8.8 % (20.5-51.5); MEAN CORPUSCULAR HEMOGLOBIN 26.4 uug (23.8-33.4); MEAN CORPUSCULAR HGB CONC 33 g/dL (32.5-36.3); MEAN CORPUSCULAR VOLUME 80.5 fL (73.0-96.2); MONOCYTES # (AUTO) 0.5 K/uL (2.0-10.0); MONOCYTES % (AUTO) 6.1 % (0.0-11.0); NEUTROPHILS # (AUTO) 7.3 K/uL (1.8-8.9); NEUTROPHILS % (AUTO) 83.9 % (38.5-71.5); PLATELET COUNT (AUTO) 261 K/uL (152-348); RED BLOOD CELL COUNT(AUTO) 3.74 MIL/uL (4.06-5.63); WHITE BLOOD COUNT (AUTO) 8.7 K/uL (3.6-10.2)
[2018-11-12 08:55] LABS: ABG HCO3 23.9 mmol/L; ABG PCO2 28.5 mmHg (35.0-45.0); ABG PH 7.541 (7.350-7.450); ABG PO2 127.4 mmHg (75.0-100.0); ABG SITE RIGHT RADIAL; ABG TOTAL HEMOGLOBIN 10.8 G/dL (13.5-18.0); COHb 1.1 % (0.5-1.5); MetHb 0.2 % (0.0-1.5); O2Hb 97.6 % (94.0-97.0); VENT MODE VENT - A/C; VT, ABG 500 mL
[2018-11-12] MEDS: SODIUM HYPOCHLORITE 0.125% 473 ML BOTTLE TP SCH (09:00)
[2018-11-12] MEDS: FUROSEMIDE 20 MG/2 ML VIAL IV SCH (09:00)
[2018-11-12] MEDS: FAMOTIDINE. 20 MG/2 ML VIAL IV SCH ×2 (09:00→20:49)
[2018-11-12] MEDS: Z GUARD REMEDY PASTE 57 GM TUBE TOP SCH ×2 (09:00→20:50)
[2018-11-12] MEDS: THERAHONEY GEL 1.5 OZ TUBE TOP SCH ×2 (09:00→20:52)
[2018-11-12] MEDS: LEVETIRACETAM IV 1,500 MG in IV DEXTROSE 5% 100 ML IV SCH ×2 (09:00→21:01)
[2018-11-12] MEDS: POTASSIUM CHLORIDE 50 ML IV SCH ×4 (11:00→14:00)
--- NOTE | 2018-11-12 11:27 | NUR ---
Dr. Link here to examine pt.
--- NOTE | 2018-11-12 11:32 | NUR ---
Clinical Pharmacy Note: Vancomycin Dosing per Pharmacy Subjective: Vancomycin IV to continue on this 63 yo male patient (resident of ) for documented infection, recurrent fevers and de-sat. Objective: BUN 6/Scr 0.6 WBC 8.7 Temperature 98.4 ht 167 cm wt 75.7 kg Trough 11/10 @2100: 20.4 Assessment/Plan: Will continue same dose of vancomycin 1250mg IVPB q18h for today. 3rd due tonight at 2100. Will check trough before 4th scheduled dose of new regimen (not ordered yet). Will follow renal function and adjust if were to become unstable. Otherwise will follow level accordingly. Will follow
[2018-11-12] MEDS: MEROPENEM 1 G in IV NORMAL SALINE 100 ML IV SCH (12:30)
[2018-11-12] MEDS: MAGNESIUM SULFATE/D5W 100 ML IV SCH ×2 (15:39→16:37)
[2018-11-12] MEDS: IV D5 1/2 NS 1000 ML 1,000 ML IV PRN (19:42)
[2018-11-12] MEDS: FLUCONAZOLE 200 MG/NS 100ML IV 100 MG in PREMIXED 1 EACH IV SCH (19:44)
--- NOTE | 2018-11-12 19:45 | NUR ---
Received pt HOB elevated, eyes open, non verbal, unable to follow commands. Pt upper and lower extremities flaccid, gag reflex present. Pt on trach with vent settings: AC 12, TV 500, PEEP 5, FIO2 28%. PICC WILMA running D5 1/2 NS at 60 cc/hr. Antibiotic therapy noted. F/C in place. Wound dressings intact. Pt turned and repositioned. VSS, afebrile. Seizure and aspiration precautions in place. Continue to monitor closely.
[2018-11-12] MEDS: IV NORMAL SALINE 250 ML IV PRN (19:47)
--- NOTE | 2018-11-12 21:56 | NUR ---
PT GOING TO CCU - 1 WITH RT ASSIST @ 21:55, PT DOING WELL, Emily HOWELL MICROBIOLOGY ANALYST Addendum: 11/12/18 at 2157 by PAIGE HOWELL RT Amended: Links added.
--- NOTE | 2018-11-12 23:37 | NUR ---
PT ON CONT TY VENT WITH SHILEY #[address] AND SECURED, ALSO RT ASSIST TRANSFERRED TO CCU # 1 , PT WITH SAME CURRENT SETTINGS, A/C 12, V T 500ML ,PEEP5 , 28% , PT DOES ASSIST AT TIMES, GOOD COUGH EFFORT, WHITISH TINGE SECRETIONS, CHECK CUFF, CHANGE HME, ALL VENT ALARMS GOOD, NEB INLINE RXS X 2 TOLL WELL, TRACH CARE DONE, NO VENT CHANGES MADE, PT STABLE, AMBU BAG AT BEDSIDE.Emily HOWELL SUPERVISOR EXTRUSION Addendum: 11/12/18 at 2340 by PAIGE HOWELL RT Amended: Links added.
[2018-11-13] VITALS (11 sets, daily range): BP systolic 134–151; BP diastolic 52–85
[2018-11-13] MEDS: ALBUTEROL SULFATE 2.5 MG/3 ML NEBU IH SCH ×3 (01:33→13:05)
[2018-11-13] MEDS: IPRATROPIUM BROMIDE 0.5 MG/2.5 ML NEBU NEB SCH ×3 (01:33→13:05)
--- NOTE | 2018-11-13 04:45 | NUR ---
AM care provided. Oral care done with minimal thin, white secretions. WILMA PICC line dressing changed. Wound care treatment provided as ordered. Pt kept clean and dry. Aspiration and seizure precautions observed. Pt turned and repositioned. Will continue to monitor.
[2018-11-13 05:11] LABS: BASOPHILS % (AUTO) 0.3 % (0.0-2.0); EOSINOPHILS # (AUTO) 0.1 K/uL (0.0-0.7); EOSINOPHILS % (AUTO) 1.8 % (0.0-7.0); HEMATOCRIT 27.5 % (36.7-47.1); HEMOGLOBIN 9.2 g/dL (12.5-16.3); LYMPHOCYTES # (AUTO) 0.8 K/uL (20.0-40.0); LYMPHOCYTES % (AUTO) 10.3 % (20.5-51.5); MEAN CORPUSCULAR HEMOGLOBIN 26.2 uug (23.8-33.4); MEAN CORPUSCULAR HGB CONC 34 g/dL (32.5-36.3); MEAN CORPUSCULAR VOLUME 78.2 fL (73.0-96.2); MONOCYTES # (AUTO) 0.5 K/uL (2.0-10.0); MONOCYTES % (AUTO) 5.9 % (0.0-11.0); NEUTROPHILS # (AUTO) 6.6 K/uL (1.8-8.9); NEUTROPHILS % (AUTO) 81.7 % (38.5-71.5); PLATELET COUNT (AUTO) 271 K/uL (152-348); RED BLOOD CELL COUNT(AUTO) 3.52 MIL/uL (4.06-5.63); WHITE BLOOD COUNT (AUTO) 8.1 K/uL (3.6-10.2)
[2018-11-13 05:24] LABS: CARBON DIOXIDE 27 mmol/L (21-32); CHLORIDE 108 mmol/L (98-107); CREATININE 0.6 mg/dL (0.6-1.3); GLUCOSE 154 mg/dL (74-106); MAGNESIUM 1.8 mg/dL (1.8-2.4); PHOSPHOROUS 2.9 mg/dL (2.5-4.9); POTASSIUM 3.4 mmol/L (3.5-5.1); UREA NITROGEN, BLOOD 6 mg/dL (7-18)
[2018-11-13] MEDS: POLYVINYL ALCOHOL OPHT DROPS 15 ML BOTTLE EACHEYE SCH ×2 (06:02→14:00)
[2018-11-13] MEDS: NORMAL SALINE FLUSH 10 ML DISP.SYRIN IV SCH ×2 (06:03→14:00)
[2018-11-13] MEDS: Z GUARD REMEDY PASTE 57 GM TUBE TOP SCH (09:13)
[2018-11-13] MEDS: THERAHONEY GEL 1.5 OZ TUBE TOP SCH (09:13)
[2018-11-13] MEDS: SODIUM HYPOCHLORITE 0.125% 473 ML BOTTLE TP SCH (09:14)
[2018-11-13] MEDS: FAMOTIDINE. 20 MG/2 ML VIAL IV SCH (09:18)
[2018-11-13] MEDS: FUROSEMIDE 20 MG/2 ML VIAL IV SCH (09:18)
[2018-11-13] MEDS: LEVETIRACETAM IV 1,500 MG in IV DEXTROSE 5% 100 ML IV SCH (09:20)
[2018-11-13] MEDS: POTASSIUM CHLORIDE 50 ML IV SCH ×2 (11:00→12:00)
--- NOTE | 2018-11-13 13:47 | NUR ---
RECEIVED PT ON CURRENT VENTILATOR SETTINGS. IN LINE TREATMENT GIVEN AND TOLERATED WELL SUCTIONED NEEDED. ORAL CARE AND TRACH CARE DONE. CHANGED INNER CANNULA ALSO. NO NEW ORDER RECEIVED.
--- NOTE | 2018-11-13 16:40 | NUR ---
verbal report given to gelacio, by telephone.
--- NOTE | 2018-11-13 17:10 | NUR ---
pt. transferred out of I.C.U. via bed and attached to ventilator. transferred by two resp. therapists. s.t. billet assembler aware of tachycardia. " There is no more that we can do for this pt. surgically ". as per the Yadi ZURITA
== END 2018-11-13 19:00 | DRG 720 ==
LOC: ER 16:59 → DOU3 22:08 → TELE-TD3 22:54 → CCU 11-12 21:50
PROVIDERS: ADMIT Internal Medicine; ATTEND Internal Medicine
PROC: 5A1955Z Respiratory Ventilation, Greater than 96 Consecutive Hours (ICD-10-PCS; 2018-11-08)
PROC: 30233N1 Transfusion of Nonautologous Red Blood Cells into Peripheral Vein, Percutaneous Approach (ICD-10-PCS; principal; 2018-11-09)
DX: A41.9 Sepsis, unspecified organism (principal); K65.1 Peritoneal abscess; G93.1 Anoxic brain damage, not elsewhere classified; Z99.11 Dependence on respirator [ventilator] status; E43 Unspecified severe protein-calorie malnutrition; K27.5 Chronic or unspecified peptic ulcer, site unspecified, with perforation; J90 Pleural effusion, not elsewhere classified; G91.9 Hydrocephalus, unspecified; J96.11 Chronic respiratory failure with hypoxia; L89.154 Pressure ulcer of sacral region, stage 4; Z93.0 Tracheostomy status; Z68.25 Body mass index [BMI] 25.0-25.9, adult; D62 Acute posthemorrhagic anemia; R13.10 Dysphagia, unspecified; Z93.4 Other artificial openings of gastrointestinal tract status; Z79.01 Long term (current) use of anticoagulants; Z86.14 Personal history of Methicillin resistant Staphylococcus aureus infection; Z86.74 Personal history of sudden cardiac arrest; Z86.718 Personal history of other venous thrombosis and embolism; Z74.01 Bed confinement status; M46.28 Osteomyelitis of vertebra, sacral and sacrococcygeal region; E11.69 Type 2 diabetes mellitus with other specified complication; I25.10 Atherosclerotic heart disease of native coronary artery without angina pectoris; I11.9 Hypertensive heart disease without heart failure; E87.6 Hypokalemia; J98.11 Atelectasis; D68.59 Other primary thrombophilia; Z87.440 Personal history of urinary (tract) infections; Z79.82 Long term (current) use of aspirin; Z87.01 Personal history of pneumonia (recurrent)
CPT/HCPCS: 36415; 36600; 70030-TC; 71045; 83605; 83735; 84100; 85025; 85730; 86850; 86900; 86901; 86920; 87040; 87070; 87086; 87205; 93005; 94003; 94640; A4217; A4663; G0378; J1450; J1940; J1953; J2185; J2270; J2405; J2543; J3370; J3475; J3480; J3490; J3590; J7030; J7050; J7060; P9016-BL; P9021; Q9963

== ENCOUNTER 2018-12-19 08:35 | Outpatient (CLI) | payer MEDICAID ==
[~2018-12-19 08:35] MED LIST changes: +ACET650T10 JT; -AMIN30LI2 GT; -ARGI1POW13 GT; +FAMO20TA8 JT; -FAMO40TA7 GT; -FERR220S6 GT; +FLUC100T8 JT; -FLUC200T8 PO; -HYDR-3326 GT; +HYDR-3980 PO; -HYDR-4075 GT; -LEVE100S GT; +LEVE100S JT; -LOSA50TA39 GT; +METO5SOL2 JT; -METO5VIA3 IV; +NUT.237L65 PO; +POLY15DR27 OP; +RIVA10TA GT; -RIVA15TA2 GT; -SODI473S8 MC; -SODI473S8 TP; +ZINC220C8 JT; +[UNRECOGNIZED DRUG - OTHER] TOP
== END 2018-12-19 23:59 | disposition home or self-care (01) ==
LOC: CT 08:35
PROVIDERS: ATTEND Internal Medicine
DX: I63.9 Cerebral infarction, unspecified (principal); G93.89 Other specified disorders of brain; G91.9 Hydrocephalus, unspecified; I65.23 Occlusion and stenosis of bilateral carotid arteries
CPT/HCPCS: 70450

== ENCOUNTER 2018-12-25 14:26 | Inpatient (IN) | payer MEDICAID ==
[~2018-12-25] VITALS: Ht 165.1 cm; Wt 64.0 kg
--- NOTE | 2018-12-25 14:30 | NUR ---
Transferred from Sub-Acute to ER without incident.. Pt remains on vent: HT-50 with same settings: A/C 12, Vt 500, PEEP +5, FiO2 28% via 2 Lpm bleed in.. No s/s of distress / S.O.B noted.. Alarms checked and audible.. will continue to monitor.
--- NOTE | 2018-12-25 14:31 | NUR ---
VENT SETTING TIDAL VOLUME 500 ML, PEEP 5, RR 12.
--- NOTE | 2018-12-25 14:32 | NUR ---
PT IS EYES OPEN, NON-TRACKING, NON-VERBAL. BIB NURSING STAFF FROM IN-HOUSE SUBACUTE UNIT. PT IS PENDING SURGERY MEDIA TECHNICIAN SHUNT PLACEMENT BY DR. XIN. GROVER. PT HAS A GJ-TUBE, PERITONEAL DRAIN, INTRAHEPATIC DRAIN, AND A VERTICAL ABD SURGICAL INCISIONAL WOUND. PT IS VENT-DEPENENT.
--- NOTE | 2018-12-25 14:48 | NUR ---
ER MD SPEAKING W/ EPIC MD RE PT'S ADMISSION.
--- NOTE | 2018-12-25 14:51 | NUR ---
PT WILL BE ADMITTED TO [facility]OM [address] HAMMER.
[2018-12-25] MEDS ORDERED: ASCO500T9 JT (14:57)
--- NOTE | 2018-12-25 15:16 | NUR ---
CALLED NURSING BOGGER OPERATOR, GLORIA, FOR PICC-LINE NURSE.
[2018-12-25] MEDS ORDERED: METO50TA16 JT (15:20)
[2018-12-25] MEDS ORDERED: NEOM1PAC2 TP (15:20)
--- NOTE | 2018-12-25 15:20 | NUR ---
ADMITTING REPORT GIVEN TO TERESA TRAVIS.
--- NOTE | 2018-12-25 15:50 | NUR ---
Pt transferred to [facility] on vent: HT-50.. Transferred without incident.. Changed to vent: Muñoz with same settings as in ER, upon arrival to 309 by RT Haas.. see RT Haas's notes
--- NOTE | 2018-12-25 16:00 | NUR ---
ADMITTED FROM SUBACUTE UNIT VIA ER FOR INSERTION OF HOLIDAY DETECTOR OPERATOR SHUNT TOMORROW PM BY DR ARROYO.. ROUTINE ADMISSION ASSESSMENT INITIATED WITH WITH AT BESIDE. VENT SHILEY 6 SET AT 12-500-28%-[address] HAMMER IN WILL SEE PATIENT. PATIENT FOR INSERTION OF PICC LINE AND HOLIDAY DETECTOR OPERATOR SHUNT CONSENT SIGNED
[2018-12-25 16:54] VITALS: BP 104/51
--- NOTE | 2018-12-25 17:31 | NUR ---
RECEIVED PT FROM ER (FROM RT PAULINO) ON THE HT-50 VENT WITH THE FOLLOWING SETTINGS THAT ARE CHARTED ON THE MECHANICAL VENT NOTES. PLACED PATIENT ON A TY VENTILATOR WITH THE SAME SETTINGS. TRACH TUBE IS PATENT AND SECURED WITH TRACH TIES. SUCTIONED SMALL AMOUNTS OF THIN WHITE/YELLOW SECRETIONS. VENT ALARMS ARE ON AND AUDIBLE. VENT IS PLUGGED IN THE RED OUTLET. BACK UP TRACH AND BMV IS BY BEDSIDE. PULSE OX IS ON. PT IS TOLERATING CURRENT VENT SETTINGS WELL AT THIS TIME WITH NO SOB NOTED.
--- NOTE | 2018-12-25 17:51 | NUR ---
SEEN BY TEODORO GRAYSON FOR SURGICAL FOLLOW-UP PERITONEAL DRAINAGE LOWER ABDOMEN DISCONTINUE
[2018-12-25] MEDS ORDERED: MV-M1TAB2 JT (18:00)
[2018-12-25] MEDS ORDERED: NUT.237L65 JT (18:03)
--- NOTE | 2018-12-25 19:14 | NUR ---
RECEIVED PT ON TY VENTILATOR. CURRENT SETTINGS ARE: AC 12, 500, +5, 28%. NO CHANGES MADE AT THIS TIME. BENNYLEY 6 DCT TRACH IS PATENT AND SECURED WITH FOAM TRACH TIES. SUCTIONED SMALL AMOUNT OF THIN, PALE SECRETIONS. VENT ALARM PARAMETERS CHECKED. ALARMS ARE ON AND AUDIBLE. AMBU BAG AND BACK UP TRACH ARE AT BEDSIDE. CONTINUOUS PULSE OX IS ON AND AUDIBLE. PT SHOWING NO S/S OF RESPIRATORY DISTRESS AT THIS TIME. WILL CONTINUE TO MONITOR.
[2018-12-25] MEDS ORDERED: CHLORHEXIDINE GLUCONATE 4% TOP SOL 118 ML TP ONE (19:15)
[2018-12-25] MEDS ORDERED: CHLORHEXIDINE 4% XX ONE (19:15)
--- NOTE | 2018-12-25 19:30 | NUR ---
Report received. Patient admitted from ER DX: Hydrocephalus for BEDSPREAD SEAMER shunt placement tomorrow. Has been a resident of our Subacute unit. Patient with trache to mechanical ventilator with settings: AC=12, FIO2=28%, PEEP=5 and TJ=[id number]. Double lumen PICC line insertion to [facility] has just been completed. Both ports flushed with NS; patent. Opens eyes, doesn't track or follow any commands. All extremities flaccid/rigid. Decorticates when stimulated. Complete assessment done; refer to [facility] flowsheet. Addendum: 12/26/18 at 0055 by KEV BEAN RN Amended: Links added. Addendum: 12/26/18 at 0103 by KEV BEAN RN Amended: Links added.
[2018-12-25 20:00] VITALS: BP 133/41
[2018-12-25] MEDS ORDERED: RIVA10TA PO (20:17)
[2018-12-25] MEDS ORDERED: NEOMY/BACITRA/POLYMYXIN B OINT UD PACKET TP SCH (21:00)
[2018-12-25] MEDS ORDERED: LORAZEPAM 2 MG/1 ML VIAL IV PRN (21:00)
[2018-12-25] MEDS ORDERED: HYDROCODONE/APAP 10-325 MG TABLET GT PRN (21:00)
[2018-12-25] MEDS ORDERED: LEVETIRACETAM 500 MG/5 ML LIQUID UDC JT SCH (21:00)
[2018-12-25] MEDS: ASCORBIC ACID 500 MG TABLET JT SCH (21:15)
[2018-12-25] MEDS: METOPROLOL TARTRATE 50 MG TABLET JT SCH (21:16)
[2018-12-25] MEDS: POLYVINYL ALCOHOL OPHT DROPS 15 ML BOTTLE EACHEYE SCH (21:20)
[2018-12-25] MEDS: METOCLOPRAMIDE HCL 10 MG/10 ML UDC JT SCH (21:20)
[2018-12-25] MEDS: IV D5/ 0.9% NACL 1,000 ML IV PRN (21:36)
[2018-12-26] VITALS (9 sets, daily range): BP systolic 91–119; BP diastolic 53–71
--- NOTE | 2018-12-26 | NUR ---
GT feedings turned off. NPO after midnoc for SECURITY DISPATCHER shunt placement. IVF infusing well. Addendum: 12/26/18 at 0103 by KEV BEAN RN Amended: Links added.
[2018-12-26] MEDS: IPRATROPIUM BROMIDE 0.5 MG/2.5 ML NEBU NEB SCH ×4 (01:53→18:44)
[2018-12-26] MEDS: ALBUTEROL SULFATE 2.5 MG/3 ML NEBU IH SCH ×4 (01:53→18:44)
[2018-12-26] MEDS: POLYVINYL ALCOHOL OPHT DROPS 15 ML BOTTLE EACHEYE SCH ×3 (05:16→21:38)
[2018-12-26] MEDS: METOCLOPRAMIDE HCL 10 MG/10 ML UDC JT SCH ×3 (05:57→21:37)
[2018-12-26] MEDS ORDERED: ALBUTEROL SULFATE 2.5 MG/3 ML NEBU IH SCH (06:00)
[2018-12-26] MEDS ORDERED: IPRATROPIUM BROMIDE 0.5 MG/2.5 ML NEBU NEB SCH (06:00)
--- NOTE | 2018-12-26 06:18 | NUR ---
Stable on same vent settings. No seizures during the shift. Neuro status unchanged. NPO after midnoc maintained. Addendum: 12/26/18 at 0619 by KEV BEAN RN Amended: Links added.
[2018-12-26 06:33] LABS: BASOPHILS % (AUTO) 0.2 % (0.0-2.0); EOSINOPHILS % (AUTO) 0.1 % (0.0-7.0); HEMOGLOBIN 8.3 g/dL (12.5-16.3); LYMPHOCYTES # (AUTO) 0.9 K/uL (20.0-40.0); LYMPHOCYTES % (AUTO) 16.4 % (20.5-51.5); MEAN CORPUSCULAR HEMOGLOBIN 26.4 uug (23.8-33.4); MEAN CORPUSCULAR HGB CONC 32 g/dL (32.5-36.3); MEAN CORPUSCULAR VOLUME 82.4 fL (73.0-96.2); MONOCYTES # (AUTO) 0.4 K/uL (2.0-10.0); MONOCYTES % (AUTO) 7.1 % (0.0-11.0); NEUTROPHILS # (AUTO) 4.3 K/uL (1.8-8.9); NEUTROPHILS % (AUTO) 76.2 % (38.5-71.5); PLATELET COUNT (AUTO) 153 K/uL (152-348); RED BLOOD CELL COUNT(AUTO) 3.16 MIL/uL (4.06-5.63); WHITE BLOOD COUNT (AUTO) 5.6 K/uL (3.6-10.2)
[2018-12-26 06:46] LABS: ALANINE AMINOTRANSFERASE 44 U/L (16-63); ALKALINE PHOSPHATASE 111 U/L (50-136); ASPARTATE AMINOTRANSFERASE 21 U/L (15-37); BILIRUBIN,TOTAL 0.6 mg/dL (0.2-1.0); CARBON DIOXIDE 27 mmol/L (21-32); CHLORIDE 108 mmol/L (98-107); CREATININE 0.5 mg/dL (0.6-1.3); GLUCOSE 128 mg/dL (74-106); MAGNESIUM 1.8 mg/dL (1.8-2.4); PHOSPHOROUS 3.5 mg/dL (2.5-4.9); POTASSIUM 3.5 mmol/L (3.5-5.1); TOTAL PROTEIN, SERUM 6.8 g/dL (6.4-8.2); UREA NITROGEN, BLOOD 28 mg/dL (7-18)
--- NOTE | 2018-12-26 07:25 | NUR ---
PT RECEIVED ON CONTINUOUS VENT AC 12 VT 500 PEEP 5 FIO2 28%. TRACH IN PLACED AND SECURED WITH TRACH TIE. BACK UP TRACH AND AMBU BAG AT BEDSIDE. IN LINE TX GIVEN ORDERED. SUCTION LAVAGE PRN. VENT CHECKED, ALARMS WORKING WELL AND AUDIBLE. NO SIGNS OF RESPIRATORY DISTRESS NOTED AT THIS TIME. WILL CONTINUE TO MONITOR.
[2018-12-26] MEDS ORDERED: THERAHONEY GEL 1.5 OZ TUBE TOP PRN (07:30)
[2018-12-26] MEDS: METOPROLOL TARTRATE 50 MG TABLET JT SCH ×2 (07:44→20:11)
--- NOTE | 2018-12-26 07:48 | NUR ---
REMAINS OBTUNDED, CONTINUE WITH [facility] OBSERVATION. NPO FOR SENIOR SOLUTIONS ARCHITECT SHUNT IN THE AFTERNOON
--- NOTE | 2018-12-26 08:05 | NUR ---
WOUND CARE CONSULT WOUND CARE RECEIVED CONSULT FOR ABDOMINAL WOUND. WOUND CARE WILL DEFER CONSULT AND ALL TREATMENT PLANS TO SURGICAL TEAM WHO ARE CURRENTLY FOLLOWING THIS PATIENT. PATIENT WITH FIDEL AT 11, ALL PRESSURE ULCER PREVENTION MEASURES ARE NOTED TO BE IN PLACE AT THIS TIME. WILL SEE PRN.
[2018-12-26] MEDS: LEVETIRACETAM IV 1,500 MG in IV DEXTROSE 5% 100 ML IV SCH ×2 (08:10→20:09)
[2018-12-26] MEDS: FAMOTIDINE 20 MG TABLET JT SCH ×2 (08:11→20:12)
[2018-12-26] MEDS: ASCORBIC ACID 500 MG TABLET JT SCH ×2 (08:11→20:11)
[2018-12-26] MEDS: THERAHONEY GEL 1.5 OZ TUBE TOP SCH ×2 (08:11→20:14)
[2018-12-26] MEDS: NEOMY/BACITRAC/POLYMI OINT 28.35 GM TUBE TP SCH ×2 (08:12→20:14)
[2018-12-26] MEDS: Z GUARD REMEDY PASTE 57 GM TUBE TOP SCH (09:11)
[2018-12-26] MEDS ORDERED: SEVOFLURANE 250 ML BOTTLE IH ONE (10:48)
[2018-12-26] MEDS ORDERED: ONDANSETRON 4 MG/2 ML VIAL IV ONE (10:48)
[2018-12-26] MEDS ORDERED: IV NORMAL SALINE 250 ML BAG IV ONE (10:48)
[2018-12-26] MEDS ORDERED: IV NORMAL SALINE 1000 ML BAG IV ONE (10:48)
[2018-12-26] MEDS ORDERED: POLYMYXIN B SULFATE 500,000 UNITS, BACITRACIN 50,000 UNITS, NORMAL SALINE 20 ML MC ONE ×3 (11:00)
[2018-12-26] MEDS: IV D5/ 0.9% NACL 1,000 ML IV PRN ×2 (11:59→20:11)
[2018-12-26] MEDS ORDERED: LIDOCAINE 1%-EPI 1:100,000 20 ML VIAL ONE (13:00)
[2018-12-26] MEDS ORDERED: VANCOMYCIN 1000 MG VIAL ONE ×2 (13:00→14:12)
[2018-12-26] MEDS ORDERED: BACITRACIN ZINC OINT 15 GM TUBE ONE (13:00)
--- NOTE | 2018-12-26 13:30 | NUR ---
PT TRANSPORTED TO OR FOR WOODS BOSS SHUNT. NO INCIDENT NOTED.
--- NOTE | 2018-12-26 14:00 | NUR ---
TO OR FOR SATELLITE COMMUNICATIONS ENGINEER SHUNT INSERTION ACCOMPANIED BY RESPIRATORY THERAPIST AND OR STAFF. WAS WITH PATIENT. INSTRUCTION GIVEN. PER DR ARROYO AND CAR REPAIR SUPERVISOR PATIENT WILL GO TO ICU FOR POST-OP MANAGEMENT
[2018-12-26] MEDS ORDERED: ROCURONIUM BROMIDE 50 MG/5 ML VIAL ONE ×2 (14:12→15:01)
[2018-12-26] MEDS ORDERED: FENTANYL CITRATE 100 MCG/2 ML AMPUL ONE (14:13)
--- NOTE | 2018-12-26 17:10 | NUR ---
ORDER RECEIVED FROM DINA GILL FOR CHEST XRAY 1 VIEW STAT IN OR. ORDERS READ BACK AND CARRIED OUT.
--- NOTE | 2018-12-26 18:00 | NUR ---
Pt. transported back to CCU -2 without incident noted. vent connected to red outlet, O2 connected. vent checked, alarms working well and audible.
--- NOTE | 2018-12-26 18:44 | NUR ---
Pt is currently in CT accompanied with RNs AW and ALEXANDER as well as radiolgic technologist BIHSOP.
[2018-12-26] MEDS ORDERED: PROPOFOL 1,000 MG/100 ML BOTTLE IV ONE (18:56)
--- NOTE | 2018-12-26 19:05 | NUR ---
RECEIVED PATIENT IN BED STATUS POST BUSINESS PROCESS LEAD SHUNT PLACEMENT. PATIENT ON MECHANICAL VENT AND TOLERATING WELL. MECHANICAL VENT SETTINGS AT: AC 12, TV 500, PEEP 5 FIO2 28%. VIA SHILEY #6. MARIO CATHETER INTACT AND PATENT WITH ARJUN FLUID WITH MINIMAL SEDIMENT, APPROX 300CC. PICC LINE LOCATED AT RU ARM PATENT AND INTACT, WITH D5/0.9 NS RUNNING TKO. POST OP DRESSING INTACT. VSS. HEPATIC DRAIN TO LOW WALL SUCTION AND PELVIC ABSCESS DRAIN TO GRAVITY. G-TUBE FEEDING CLAMPED AND TO START AT 2000 WITH VITAL AF. PICTURES TAKEN AND PLACED IN CHART. WILL CONTINUE PLAN OF CARE. DR. DINA ARROYO PRESENT AT BEDSIDE. AWARE OF RECENT RESULTS OF CT OF HEAD W/O CONTRAST. WILL HAVE PATIENT GO DOWN TO RADIOLOGY FOR 2ND CT @ 2300 ORDERED BY .
[2018-12-26] MEDS: VITAL AF 1.2 1,000 ML LIQUID JT SCH (20:10)
[2018-12-26 20:30] LABS: CSF PROTEIN 32 mg/dL (15-45)
[2018-12-26 20:36] LABS: CSF GLUCOSE 82 mg/dL (40-70)
[2018-12-27] VITALS (23 sets, daily range): BP systolic 90–125; BP diastolic 47–68
--- NOTE | 2018-12-27 00:28 | NUR ---
Spoke to Dr. Rome in regards to critical value of CSF results stated by lab and results from CT scan that was done on 12/26/2018 @ 2300.
[2018-12-27] MEDS: ALBUTEROL SULFATE 2.5 MG/3 ML NEBU IH SCH ×4 (00:30→20:09)
[2018-12-27] MEDS: IPRATROPIUM BROMIDE 0.5 MG/2.5 ML NEBU NEB SCH ×4 (00:30→20:08)
[2018-12-27] MEDS: VANCOMYCIN IV 1,000 MG in IV DEXTROSE 5% 250 ML IV SCH ×2 (01:38→13:22)
[2018-12-27] MEDS: IV NORMAL SALINE 250 ML IV PRN (04:55)
[2018-12-27 05:02] LABS: CARBON DIOXIDE 26 mmol/L (21-32); CHLORIDE 110 mmol/L (98-107); CREATININE 0.5 mg/dL (0.6-1.3); GLUCOSE 159 mg/dL (74-106); MAGNESIUM 1.6 mg/dL (1.8-2.4); PHOSPHOROUS 3.7 mg/dL (2.5-4.9); POTASSIUM 3.6 mmol/L (3.5-5.1); UREA NITROGEN, BLOOD 23 mg/dL (7-18)
[2018-12-27 05:10] LABS: BASOPHILS % (AUTO) 0.1 % (0.0-2.0); EOSINOPHILS % (AUTO) 0.1 % (0.0-7.0); HEMATOCRIT 25.9 % (36.7-47.1); HEMOGLOBIN 8.4 g/dL (12.5-16.3); LYMPHOCYTES # (AUTO) 0.7 K/uL (20.0-40.0); LYMPHOCYTES % (AUTO) 10.8 % (20.5-51.5); MEAN CORPUSCULAR HEMOGLOBIN 26.7 uug (23.8-33.4); MEAN CORPUSCULAR HGB CONC 32 g/dL (32.5-36.3); MEAN CORPUSCULAR VOLUME 82.3 fL (73.0-96.2); MONOCYTES # (AUTO) 0.3 K/uL (2.0-10.0); MONOCYTES % (AUTO) 4.8 % (0.0-11.0); NEUTROPHILS # (AUTO) 5.3 K/uL (1.8-8.9); NEUTROPHILS % (AUTO) 84.2 % (38.5-71.5); PLATELET COUNT (AUTO) 155 K/uL (152-348); RED BLOOD CELL COUNT(AUTO) 3.14 MIL/uL (4.06-5.63); WHITE BLOOD COUNT (AUTO) 6.3 K/uL (3.6-10.2)
[2018-12-27] MEDS: METOCLOPRAMIDE HCL 10 MG/10 ML UDC JT SCH ×3 (05:18→21:36)
[2018-12-27] MEDS: POLYVINYL ALCOHOL OPHT DROPS 15 ML BOTTLE EACHEYE SCH ×3 (05:19→21:37)
--- NOTE | 2018-12-27 07:20 | NUR ---
Received report from shift superintendent nurse, patient in bed on air mattress, ventilator, cordova draining, two drains noted, and right PICC line. Assessed surgical dressings and abdominal wound dressings to be intact. Two drains present with left hepatic drain connected to low suction. All needs met, patient appears to be comfortable.
--- NOTE | 2018-12-27 07:20 | NUR ---
PT RECEIVED ON VENT AC 12 VT 500 PEEP 5 FIO2 28%. TRACH IN PLACED AND SECURED WITH TRACH TIE. BACK UP TRACH AND AMBU BAG AT BEDSIDE. IN LINE TX GIVEN WITH UD ALBUTEROL + UD ATROVENT TOLERATED. SUCTION LAVAGE PRN. VENT CHECKED, ALARMS WORKING WELL AND AUDIBLE. NO SIGNS OF RESPIRATORY DISTRESS NOTED AT THIS TIME. WILL CONTINUE TO MONITOR.
[2018-12-27] MEDS: LEVETIRACETAM IV 1,500 MG in IV DEXTROSE 5% 100 ML IV SCH ×2 (08:38→20:44)
[2018-12-27] MEDS: ASCORBIC ACID 500 MG TABLET JT SCH ×2 (08:47→20:42)
[2018-12-27] MEDS: METOPROLOL TARTRATE 50 MG TABLET JT SCH ×2 (08:47→20:43)
[2018-12-27] MEDS: FAMOTIDINE 20 MG TABLET JT SCH ×2 (08:47→17:55)
[2018-12-27] MEDS: NEOMY/BACITRAC/POLYMI OINT 28.35 GM TUBE TP SCH ×2 (08:48→20:42)
[2018-12-27] MEDS: Z GUARD REMEDY PASTE 57 GM TUBE TOP SCH (08:48)
[2018-12-27] MEDS: THERAHONEY GEL 1.5 OZ TUBE TOP SCH ×2 (08:48→20:41)
[2018-12-27] MEDS ORDERED: MAGNESIUM SULFATE/D5W 100 ML IV SCH (09:15)
[2018-12-27] MEDS: ACETAMINOPHEN 650 MG SUPP.RECT RC PRN ×2 (09:23→15:27)
--- NOTE | 2018-12-27 09:33 | NUR ---
Discussion with Dr. Rome, reported fever of 101.1 rectally. Will repeat temperature monitoring in 2 hours. Orders received to order blood cultures if fever persists.
[2018-12-27] MEDS ORDERED: VITAL AF 1.2 1,000 ML LIQUID GT PRN (09:45)
[2018-12-27] MEDS: VITAL AF 1.2 1,000 ML LIQUID JT SCH (10:06)
--- NOTE | 2018-12-27 10:20 | NUR ---
Patient appears to have rapid eye movement indicative of a seizure. CHIROPRACTIC CARE at bedside, orders received for ativan.
[2018-12-27] MEDS ORDERED: LORAZEPAM 2 MG/1 ML VIAL IV PRN (10:30)
--- NOTE | 2018-12-27 12:32 | NUR ---
WOUND CARE CONSULT: PT PRESENTS WITH GENERALIZED EDEMA AND RT GREAT TOENAIL EDGE WITH SOME DRAINAGE, PRESENT ON ADMISSION. PT HAS HAD WEIGHT LOSS AND WAS RECENTLY SEEN FOR BONY AREA TO LEFT ISCHIAL AREA (BLANCHABLE REDNESS). RECOMMENDATIONS MADE FOR SKIN PROTECTION. DISCUSSED WITH NURSING STAFF. DPM CONSULT RECOMMENDED FOR RT GREAT TOE. DR NOGUEIRA AWARE OF CONSULT REQUEST. DEFER TO SURGICAL TEAM FOR WOUNDS (SACRAL, ABDOMINAL, SHUNT SITE). WILL SEE PRN. GILL IN AGREEMENT WITH PLAN OF CARE. PT ON FIRST STEP LILI MEJÍA [facility]. Addendum: 12/27/18 at 1235 by EFFIE CHIU RN Amended: Links added.
--- NOTE | 2018-12-27 12:41 | NUR ---
Reported continued fever to Dr Garcia, urine results reported also, and blood cultures ordered x2.
[2018-12-27 12:45] LABS: *BILIRUBIN,URIN NEGATIVE (NEGATIVE); *BLOOD, URINE NEGATIVE (NEGATIVE); *CLARITY,URINE CLOUDY (CLEAR); *COLOR,URINE YELLOW (YELLOW); *KETONES,URINE NEGATIVE (NEGATIVE); *UROBILINOGEN,URINE 0.2 E.U./dl (NORMAL); LEUKOCYTE ESTERASE ,URINE 1+ (NEGATIVE); NITRITE, URINE POSITIVE (NEGATIVE); UGLUCOSE NEGATIVE (NEGATIVE)
[2018-12-27 12:59] LABS: BACTERIA,URINE MANY /HPF (NONE SEEN)
[2018-12-27 13:00] LABS: CALCIUM OXALATE CRYSTALS,UR MODERATE /HPF (NONE SEEN); SQUAMOUS EPITHELIAL CELL,UR FEW /HPF (NONE SEEN)
--- NOTE | 2018-12-27 13:10 | NUR ---
Contacted ID to report continued fever. orders received for chest xray and start patient on zosyn per pharmacy dosing.
[2018-12-27] MEDS ORDERED: DOSING BY PHARMACY-MD TO SPECIFY MED/ROUTE XX PRN (13:30)
--- NOTE | 2018-12-27 14:21 | NUR ---
chest xray results reported to ID.
[2018-12-27] MEDS ORDERED: PIPERACILLIN/TAZOBACTAM/D5W 3.375 G in IV DEXTROSE 5% 50 ML IV SCH (15:00)
--- NOTE | 2018-12-27 17:30 | NUR ---
Patient seen by Dr. Rome, discussed progress with family at bedside.
--- NOTE | 2018-12-27 18:15 | NUR ---
Patient seen by
--- NOTE | 2018-12-27 18:34 | NUR ---
Patient has been febrile through most of the shift, Tylenol given twice rectally. Both ID an primary physician are aware. Patient is awake and withdraws from light pain, Vent set at a/c 12, TV 500, Peep5, Fiot28%, Patient has been sinus tachy to upper 90's throughout shift, Pitting edema on bilateral upper extremities, cordova draining, and JG drain to low suction, additional drain on right abdomen. Wound care performed as ordered, and patient was given a bed bath and turned and repositioned every two hours.
--- NOTE | 2018-12-27 19:24 | NUR ---
CLINICAL PHARMACY NOTE: VANCOMYCIN DOSING Request for vancomycin dosing on 63y/o male 165.1cm 64.4kg for documented infection temp 101.1 BUN 23 Scr 0.5 WBC 6.3 also on Zosyn was on Vancomycin post procedure for 2 doses. Last dose today at 1400 Continue vancomycin 750mg ivpb 12h estimate trough 15. Will order trough level prior to 4th dose .Will continue to monitor
--- NOTE | 2018-12-27 19:26 | NUR ---
Report given to slot shift manager nurse.
--- NOTE | 2018-12-27 20:00 | NUR ---
RECEIVED PT OPENS HIS EYES TO HIS NAME W/O EYE CONTACT. TRACH TO VENT W/ SETTINGS OF AC-12, TV-500, FIO2-28% W/ O2 SAT OF 99%. SUCTIONED VIA TRACH W/ MINIMAL TANNISH THIN MUCOUS. ABD. DRSG INTACT & DRY. R. ABDOMEN PERIHEPATIC ABSCESS DRAIN TO VACUUM DRAINAGE BAG W/ PURULENT DRAINAGE. G-TUBE TO LOW WALL SUCTION W/ LIGHT BILE COLOR DRAINAGE. PT ON TUBE FDG OF VITAL AF 70CC/HR VIA J-TUBE INTACT, NO RESIDUAL NOTED. TEMP-99.1 ORALLY. REPOSITIONED ON HIS SIDE W/ HOB ELEVATED.
[2018-12-27] MEDS: PIPERACILLIN SODIUM/TAZOBACTAM 3.375 G in IV DEXTROSE 5% 50 ML IV SCH (20:44)
--- NOTE | 2018-12-27 22:00 | NUR ---
ABD. WOUND CARE DONE ORDERED. SACRAL WOUND CARE DONE. HS CARE & ORAL CARE DONE. REPOSITIONED ON HIS SIDE W/ HOB ELEVATED.
[2018-12-28] VITALS (27 sets, daily range): BP systolic 88–125; BP diastolic 22–62
[2018-12-28] MEDS: ALBUTEROL SULFATE 2.5 MG/3 ML NEBU IH SCH ×4 (01:30→20:31)
[2018-12-28] MEDS: IPRATROPIUM BROMIDE 0.5 MG/2.5 ML NEBU NEB SCH ×4 (01:30→20:31)
[2018-12-28] MEDS: VITAL AF 1.2 1,000 ML LIQUID GT PRN ×2 (01:37→20:59)
[2018-12-28] MEDS: VANCOMYCIN IV 750 MG in IV DEXTROSE 5% 250 ML IV SCH ×2 (01:43→14:27)
[2018-12-28] MEDS: PIPERACILLIN SODIUM/TAZOBACTAM 3.375 G in IV DEXTROSE 5% 50 ML IV SCH ×4 (02:40→20:38)
--- NOTE | 2018-12-28 03:45 | NUR ---
PT ON CONT TY VENT WITH SHILEY # [address] WITH SAME CURRENT VENT SETTINGS, PT DOES ASSIST AT TIMES, GOOD COUGH EFFORT, SUCTIONED VERY LIGHT PALE YELL TINGE SECRETIONS, AND SUCTION MOUTH WITH SHERIN NGUYEN, ALL VENT ALARMS GOOD, NEB INLINE X2 SHERIN TUCKER, TRACH CARE DONE, NO VENT CHANGES MADE, CHECK CUFF, CHANGE HME . Emily STRAUSSP Addendum: 12/28/18 at 0351 by PAIGE HOWELL RT Amended: Links added.
--- NOTE | 2018-12-28 04:00 | NUR ---
AM CARE DONE. TRACH CARE DONE. REPOSITIONED ON HIS BACK FOR CXR.
[2018-12-28] MEDS: IV NORMAL SALINE 250 ML IV PRN (04:43)
[2018-12-28 04:51] LABS: BASOPHILS % (AUTO) 0.2 % (0.0-2.0); EOSINOPHILS % (AUTO) 0.1 % (0.0-7.0); HEMATOCRIT 24.1 % (36.7-47.1); HEMOGLOBIN 7.8 g/dL (12.5-16.3); LYMPHOCYTES # (AUTO) 0.7 K/uL (20.0-40.0); LYMPHOCYTES % (AUTO) 12.8 % (20.5-51.5); MEAN CORPUSCULAR HEMOGLOBIN 26.6 uug (23.8-33.4); MEAN CORPUSCULAR HGB CONC 33 g/dL (32.5-36.3); MEAN CORPUSCULAR VOLUME 81.9 fL (73.0-96.2); MONOCYTES # (AUTO) 0.3 K/uL (2.0-10.0); MONOCYTES % (AUTO) 5.2 % (0.0-11.0); NEUTROPHILS # (AUTO) 4.4 K/uL (1.8-8.9); NEUTROPHILS % (AUTO) 81.7 % (38.5-71.5); PLATELET COUNT (AUTO) 137 K/uL (152-348); RED BLOOD CELL COUNT(AUTO) 2.94 MIL/uL (4.06-5.63); WHITE BLOOD COUNT (AUTO) 5.3 K/uL (3.6-10.2)
[2018-12-28 04:58] LABS: CARBON DIOXIDE 25 mmol/L (21-32); CHLORIDE 106 mmol/L (98-107); CREATININE 0.5 mg/dL (0.6-1.3); GLUCOSE 146 mg/dL (74-106); MAGNESIUM 1.6 mg/dL (1.8-2.4); PHOSPHOROUS 3.2 mg/dL (2.5-4.9); POTASSIUM 3.2 mmol/L (3.5-5.1); UREA NITROGEN, BLOOD 18 mg/dL (7-18)
[2018-12-28] MEDS: METOCLOPRAMIDE HCL 10 MG/10 ML UDC JT SCH ×3 (05:27→21:34)
[2018-12-28] MEDS: POLYVINYL ALCOHOL OPHT DROPS 15 ML BOTTLE EACHEYE SCH ×3 (05:27→21:33)
--- NOTE | 2018-12-28 06:00 | NUR ---
OFF TUBE FDG, WILL RESUME @ 1000.
[2018-12-28 07:15] LABS: ABG BASE EXCESS -0.8 mmol/L; ABG HCO3 22.4 mmol/L; ABG PCO2 31.5 mmHg (35.0-45.0); ABG PO2 118.7 mmHg (75.0-100.0); ABG SITE LEFT RADIAL; ABG TOTAL HEMOGLOBIN 8.9 G/dL (13.5-18.0); COHb 1.4 % (0.5-1.5); O2Hb 97.6 % (94.0-97.0); VENT MODE VENT - A/C; VT, ABG 500 mL
--- NOTE | 2018-12-28 07:25 | NUR ---
PT RECEIVED TRACH TO VENT WITH SETTINGS ON SIMV12/ VT 500/PS 10/ 28% / +5 OF PEEP. PT TOLERATING CURRENT SETTINGS FINE WITHOUT RESP DISCOMFORT. SHILEY 6 DCT SECURED AND INTACT. AIRWAY PATENT. BREATH SOUNDS CLEAR. PT HAS MINIMAL WHITE SECRETIONS. VENT ALARMS SET AND AUDIBLE. ROUTINE ABG COMPLETED ORDERED BY DR ARREDONDO. RESULTS NON CRITICAL AND [facility]. WILL CONTINUE TO MONITOR
--- NOTE | 2018-12-28 07:30 | NUR ---
Received report from overnight caregiver nurse, patient in bed asleep, on ventilator, cordova catheter draining, right abdominal drain intact, left drain on low suction. Tube feeding stopped as ordered and IV lines are flushed and patent. Air mattress inflated and ambu bag at bedside. Bed in low position, side rails up x2.
[2018-12-28] MEDS: ZINC SULFATE 220 MG CAPSULE GT SCH (08:20)
[2018-12-28] MEDS: PROTEIN SUPPLEMENT (PROSTAT) 30 ML LIQUID GT SCH (08:20)
[2018-12-28] MEDS: FAMOTIDINE 20 MG TABLET JT SCH ×2 (08:20→17:36)
[2018-12-28] MEDS: MULTIVITAMINS,THERAPEUTIC TABLET GT SCH (08:20)
[2018-12-28] MEDS: ASCORBIC ACID 500 MG TABLET JT SCH ×2 (08:21→20:38)
[2018-12-28] MEDS: METOPROLOL TARTRATE 50 MG TABLET JT SCH ×2 (08:21→20:40)
[2018-12-28] MEDS: THERAHONEY GEL 1.5 OZ TUBE TOP SCH ×2 (08:23→20:41)
[2018-12-28] MEDS: Z GUARD REMEDY PASTE 57 GM TUBE TOP SCH (08:23)
[2018-12-28] MEDS: NEOMY/BACITRAC/POLYMI OINT 28.35 GM TUBE TP SCH ×2 (08:23→20:42)
[2018-12-28] MEDS: ACETAMINOPHEN 650 MG/20 ML UDC- SA PATIENTS-PAIN ONLY GT PRN ×2 (08:54→17:58)
[2018-12-28] MEDS ORDERED: MULTIVITAMINS 5 ML LIQUID UDC GT SCH (09:00)
[2018-12-28] MEDS: LEVETIRACETAM IV 1,500 MG in IV DEXTROSE 5% 100 ML IV SCH ×2 (09:09→20:38)
--- NOTE | 2018-12-28 09:10 | NUR ---
PATIENT SEEN BY DR. SANDOVAL.
[2018-12-28] MEDS ORDERED: IV NORMAL SALINE 500 ML IV ONE (10:15)
--- NOTE | 2018-12-28 10:15 | NUR ---
Contacted Dr. Garcia about patient's declining blood pressure. Orders received for lactic acid and bolus 500cc.
--- NOTE | 2018-12-28 11:00 | NUR ---
Patient seen by Dr. Mckeon.
--- NOTE | 2018-12-28 12:39 | NUR ---
CLINICAL PHARMACY NOTE: VANCOMYCIN DOSING To continue vancomycin dosing on 63y/o male 165.1cm 64.4kg for documented infection temp 99.3 BUN 18 Scr 0.5 WBC 5.3 also on Zosyn Trough pending tomorrow 12/29 @1330 Will continue vancomycin 750mg ivpb 12h estimate trough 15. Trough due before 4th scheduled dose, due tomorrow at 1330. Will check level and adjust as needed .Will continue to monitor
[2018-12-28] MEDS ORDERED: MAGNESIUM OXIDE 400 MG TABLET GT ONE (14:00)
[2018-12-28] MEDS ORDERED: POTASSIUM CHLORIDE 20 MEQ POWDER PACKET GT ONE (14:00)
--- NOTE | 2018-12-28 17:20 | NUR ---
Dr Garcia at bedside talking with patient's .
[2018-12-28] MEDS ORDERED: FUROSEMIDE 20 MG/2 ML VIAL IV PRN (18:45)
--- NOTE | 2018-12-28 18:47 | NUR ---
Patient has been mostly asleep throughout the day, but responds to sound and mild stimuli. Patient continues to be on mechanical vent a/c 12, TV 500, PEEP 5, Fio2 28%. Tube feeding rate is 80cc/hr, Blood currently infusing and patient tolerating well. Right side abdominal drain is draining, and left drain is on low suction. Patient is in bed, no distress noted at this time, bed in low position, side rails up, and continuous close monitoring.
--- NOTE | 2018-12-28 19:08 | NUR ---
Report given to cnc machinist 2nd shift nurse.
--- NOTE | 2018-12-28 20:00 | NUR ---
RECEIVED PT. OPENS HIS EYES TO ANY STIMULI. TRACH TO VENT W/ SETTINGS OF AC-12, TV-500, FIO2-28% W/ O2 SAT OF 100%. ON TUBE FDG OF VITAL AF 1.2 @ 80CC/HR VIA J-TUBE, CHECKED RESIDUAL NONE NOTED. PICC LINE INTACT ON WILMA ALL PORTS ARE PATENT. NS @ TKO RATE FOR IVPB MEDS. ABD. DRSG INTACT. PERIHEPATIC DRAIN TO VACUUM DRAINAGE BAG W/ PURULENT DRAINAGE. G-TUBE TO LOW SUCTION W/ LIGHT BILE COLOR DRAINAGE. T-99.0. REPOSITIONED W/ HOB ELEVATED.
[2018-12-28] MEDS: HEPARIN SODIUM,PORCINE 5,000 UNITS/ML VIAL SQ SCH (21:36)
--- NOTE | 2018-12-28 23:00 | NUR ---
PT. HAD LARGE AMT OF LOOSE STOOL, CLEANED PT & REPOSITIONED W/ HOB ELEVATED. ORAL CARE DONE AFTER SUCTIONED.
[2018-12-29] VITALS (23 sets, daily range): BP systolic 91–138; BP diastolic 48–80
[2018-12-29] MEDS: ALBUTEROL SULFATE 2.5 MG/3 ML NEBU IH SCH ×4 (01:32→20:25)
[2018-12-29] MEDS: IPRATROPIUM BROMIDE 0.5 MG/2.5 ML NEBU NEB SCH ×4 (01:32→20:25)
--- NOTE | 2018-12-29 01:34 | NUR ---
PT ON CONT TY VENT WITH SHILEY # [address] AD SECURED, WITH SAME CURRENT VET SETTINGS, PT DOES ASSIST AT TIMES, CHECK CUFF, CHANGE HME AND GUZMAN, ALL VENT ALARMS GOOD, NEB INLINE X 2 TOLL WELL INLINE, NO VENT CHANGES MADE, TRACH CARE DONE ;SUCTIONED LIGHT PALE YELL TINGE SECRETIONS, . Emily HOWELL RCP Addendum: 12/29/18 at 0136 by PAIGE HOWELL RT Amended: Links added.
[2018-12-29] MEDS: VANCOMYCIN IV 750 MG in IV DEXTROSE 5% 250 ML IV SCH (02:22)
[2018-12-29] MEDS: PIPERACILLIN SODIUM/TAZOBACTAM 3.375 G in IV DEXTROSE 5% 50 ML IV SCH ×3 (02:39→14:14)
--- NOTE | 2018-12-29 04:00 | NUR ---
AM CARE DONE. TRACH CARE DONE.
[2018-12-29 05:14] LABS: ALANINE AMINOTRANSFERASE 28 U/L (16-63); ALKALINE PHOSPHATASE 94 U/L (50-136); ASPARTATE AMINOTRANSFERASE 15 U/L (15-37); BILIRUBIN,TOTAL 0.9 mg/dL (0.2-1.0); CARBON DIOXIDE 26 mmol/L (21-32); CHLORIDE 107 mmol/L (98-107); CREATININE 0.5 mg/dL (0.6-1.3); GLUCOSE 148 mg/dL (74-106); MAGNESIUM 1.6 mg/dL (1.8-2.4); PHOSPHOROUS 3.5 mg/dL (2.5-4.9); POTASSIUM 3.4 mmol/L (3.5-5.1); TOTAL PROTEIN, SERUM 6.2 g/dL (6.4-8.2); UREA NITROGEN, BLOOD 18 mg/dL (7-18)
[2018-12-29] MEDS: POLYVINYL ALCOHOL OPHT DROPS 15 ML BOTTLE EACHEYE SCH ×3 (05:36→21:14)
[2018-12-29] MEDS: METOCLOPRAMIDE HCL 10 MG/10 ML UDC JT SCH ×3 (05:36→21:13)
[2018-12-29] MEDS: IV NORMAL SALINE 250 ML IV PRN (05:39)
[2018-12-29] MEDS: HEPARIN SODIUM,PORCINE 5,000 UNITS/ML VIAL SQ SCH ×3 (05:41→21:08)
--- NOTE | 2018-12-29 06:00 | NUR ---
OFF TUBE FDG WILL RESUME AT 1000.
[2018-12-29 06:55] LABS: BASOPHILS % (AUTO) 0.2 % (0.0-2.0); EOSINOPHILS % (AUTO) 0.1 % (0.0-7.0); HEMATOCRIT 26.6 % (36.7-47.1); HEMOGLOBIN 8.7 g/dL (12.5-16.3); LYMPHOCYTES # (AUTO) 0.7 K/uL (20.0-40.0); LYMPHOCYTES % (AUTO) 13.9 % (20.5-51.5); MEAN CORPUSCULAR HEMOGLOBIN 26.5 uug (23.8-33.4); MEAN CORPUSCULAR HGB CONC 33 g/dL (32.5-36.3); MEAN CORPUSCULAR VOLUME 81.3 fL (73.0-96.2); MONOCYTES # (AUTO) 0.3 K/uL (2.0-10.0); MONOCYTES % (AUTO) 6.5 % (0.0-11.0); NEUTROPHILS # (AUTO) 3.9 K/uL (1.8-8.9); NEUTROPHILS % (AUTO) 79.3 % (38.5-71.5); PLATELET COUNT (AUTO) 125 K/uL (152-348); RED BLOOD CELL COUNT(AUTO) 3.28 MIL/uL (4.06-5.63); WHITE BLOOD COUNT (AUTO) 4.9 K/uL (3.6-10.2)
--- NOTE | 2018-12-29 07:20 | NUR ---
Received report from hotel night auditor nurse, patient in bed asleep, on ventilator, cordova catheter draining, right abdominal drain intact, left drain on low suction. Tube feeding stopped as ordered and IV lines are flushed and patent. Air mattress inflated and ambu bag at bedside. Bed in low position, side rails up x2.
[2018-12-29] MEDS: PROTEIN SUPPLEMENT (PROSTAT) 30 ML LIQUID GT SCH (08:19)
[2018-12-29] MEDS: ZINC SULFATE 220 MG CAPSULE GT SCH (08:21)
[2018-12-29] MEDS: MULTIVITAMINS,THERAPEUTIC TABLET GT SCH (08:21)
[2018-12-29] MEDS: FAMOTIDINE 20 MG TABLET JT SCH ×2 (08:22→17:21)
[2018-12-29] MEDS: LEVETIRACETAM 500 MG/5 ML LIQUID UDC JT SCH ×2 (08:22→21:00)
[2018-12-29] MEDS: ACETAMINOPHEN 650 MG/20 ML UDC- SA PATIENTS-PAIN ONLY GT PRN (08:22)
[2018-12-29] MEDS: ASCORBIC ACID 500 MG TABLET JT SCH ×2 (08:22→21:01)
[2018-12-29] MEDS: THERAHONEY GEL 1.5 OZ TUBE TOP SCH ×2 (08:27→21:32)
[2018-12-29] MEDS: Z GUARD REMEDY PASTE 57 GM TUBE TOP SCH (08:27)
[2018-12-29] MEDS: METOPROLOL TARTRATE 50 MG TABLET JT SCH (09:00)
--- NOTE | 2018-12-29 10:00 | NUR ---
Changed cordova as requested by ID as stated, "when possible".
[2018-12-29] MEDS ORDERED: POTASSIUM CHLORIDE 20 MEQ POWDER PACKET GT ONE (12:00)
[2018-12-29] MEDS ORDERED: MAGNESIUM OXIDE 400 MG TABLET GT ONE (12:00)
--- NOTE | 2018-12-29 12:00 | NUR ---
Reported lowered BP and holding of Metoprolol for the past two administrations to Dr. Garcia.
--- NOTE | 2018-12-29 14:33 | NUR ---
CLINICAL PHARMACY NOTE: VANCOMYCIN DOSING To continue vancomycin dosing on 63y/o male 165.1cm 64.4kg for documented infection temp 98.8 BUN 18 Scr 0.5 WBC 4.9 Trough today at 1348: 18.8 As trough on higher end and patient is bedbound, will adjust regimen to vancomycin 1gm q16h for new estimated trough of 16.5, first dose tonight at 1800. Will draw trough before 4th scheduled dose (not ordered yet). Will follow and adjust if renal function were to change. Will follow
--- NOTE | 2018-12-29 16:00 | NUR ---
Dr. Garcia is at bedside.
--- NOTE | 2018-12-29 17:00 | NUR ---
Insertion of flexiseal due to excess liquid stool to protect skin.
[2018-12-29] MEDS ORDERED: VANCOMYCIN IV 1,000 MG in IV DEXTROSE 5% 250 ML IV SCH (18:00)
--- NOTE | 2018-12-29 18:48 | NUR ---
Patient has had multiple loose stools today and a flexiseal was placed to protect skin. Frequent repositioning and oral care provided. Patient continues to be on mechanical vent a/c 12, TV 500, PEEP 5, Fio2 28%. Tube feeding rate is 80cc/hr, Blood currently infusing and patient tolerating well. Right side abdominal drain is draining, and left drain is on low suction. Patient is in bed, no distress noted at this time, bed in low position, side rails up, and continuous close monitoring.
[2018-12-29] MEDS: VITAL AF 1.2 1,000 ML LIQUID GT PRN (20:42)
[2018-12-29] MEDS ORDERED: GENTAMICIN SULFATE IV SCH (21:00)
[2018-12-29] MEDS ORDERED: DEXTROSE 5% IV SCH (21:00)
[2018-12-29] MEDS: LINEZOLID 600 MG TABLET PO SCH (21:07)
[2018-12-29] MEDS ORDERED: GENTAMICIN SULFATE 80 MG/2 ML VIAL ONE (21:16)
[2018-12-30] VITALS (23 sets, daily range): BP systolic 90–130; BP diastolic 54–71
[2018-12-30] MEDS: ALBUTEROL SULFATE 2.5 MG/3 ML NEBU IH SCH ×4 (01:37→18:56)
[2018-12-30] MEDS: IPRATROPIUM BROMIDE 0.5 MG/2.5 ML NEBU NEB SCH ×4 (01:37→18:56)
--- NOTE | 2018-12-30 01:43 | NUR ---
PT ON CONT TY VENT WITH SHILEY # [address] AND SECURED, WITH SAME CURRENT VENT SETTINGS, PT DOES ASSIST AT TIMES, GOOD COUGH EFFORT, SUCTIONED LIGHT PALE YELL TINGE SECRETIONS, AND SUCTION MOUTH WITH PATRICK TUCKER, TRACH CARE DONE, CHANGE HME, CHECK CUFF, ALL VENT ALARMS GOOD, NO VENT CHANGES MADE, NEB INLINE X 2 Q6 HOURS SHERIN HOWELL RCP Addendum: 12/30/18 at 0145 by PAIGE HOWELL RT Amended: Links added.
[2018-12-30] MEDS: METOCLOPRAMIDE HCL 10 MG/10 ML UDC JT SCH ×3 (05:39→21:46)
[2018-12-30] MEDS: POLYVINYL ALCOHOL OPHT DROPS 15 ML BOTTLE EACHEYE SCH ×3 (05:39→21:45)
[2018-12-30] MEDS: HEPARIN SODIUM,PORCINE 5,000 UNITS/ML VIAL SQ SCH ×3 (05:40→21:48)
[2018-12-30 06:42] LABS: CARBON DIOXIDE 25 mmol/L (21-32); CHLORIDE 108 mmol/L (98-107); CREATININE 0.5 mg/dL (0.6-1.3); GLUCOSE 118 mg/dL (74-106); MAGNESIUM 1.7 mg/dL (1.8-2.4); PHOSPHOROUS 3.3 mg/dL (2.5-4.9); POTASSIUM 3.9 mmol/L (3.5-5.1); UREA NITROGEN, BLOOD 18 mg/dL (7-18)
[2018-12-30 06:44] LABS: BASOPHILS % (AUTO) 0.2 % (0.0-2.0); EOSINOPHILS % (AUTO) 0.1 % (0.0-7.0); HEMATOCRIT 27.3 % (36.7-47.1); HEMOGLOBIN 8.8 g/dL (12.5-16.3); LYMPHOCYTES # (AUTO) 0.8 K/uL (20.0-40.0); LYMPHOCYTES % (AUTO) 15.4 % (20.5-51.5); MEAN CORPUSCULAR HEMOGLOBIN 26.4 uug (23.8-33.4); MEAN CORPUSCULAR HGB CONC 32 g/dL (32.5-36.3); MONOCYTES # (AUTO) 0.3 K/uL (2.0-10.0); MONOCYTES % (AUTO) 6.2 % (0.0-11.0); NEUTROPHILS # (AUTO) 4.2 K/uL (1.8-8.9); NEUTROPHILS % (AUTO) 78.1 % (38.5-71.5); PLATELET COUNT (AUTO) 142 K/uL (152-348); RED BLOOD CELL COUNT(AUTO) 3.33 MIL/uL (4.06-5.63); WHITE BLOOD COUNT (AUTO) 5.4 K/uL (3.6-10.2)
[2018-12-30] MEDS: LEVETIRACETAM 500 MG/5 ML LIQUID UDC JT SCH ×2 (08:17→20:47)
[2018-12-30] MEDS: ASCORBIC ACID 500 MG TABLET JT SCH ×2 (08:17→20:47)
[2018-12-30] MEDS: ZINC SULFATE 220 MG CAPSULE GT SCH (08:17)
[2018-12-30] MEDS: MULTIVITAMINS,THERAPEUTIC TABLET GT SCH (08:17)
[2018-12-30] MEDS: FAMOTIDINE 20 MG TABLET JT SCH ×2 (08:17→16:32)
[2018-12-30] MEDS: PROTEIN SUPPLEMENT (PROSTAT) 30 ML LIQUID GT SCH (08:18)
[2018-12-30] MEDS: LINEZOLID 600 MG TABLET PO SCH ×2 (08:19→20:47)
[2018-12-30] MEDS: Z GUARD REMEDY PASTE 57 GM TUBE TOP SCH (08:20)
[2018-12-30] MEDS: THERAHONEY GEL 1.5 OZ TUBE TOP SCH ×2 (08:26→20:48)
[2018-12-30] MEDS: VITAL AF 1.2 1,000 ML LIQUID GT PRN (10:31)
[2018-12-30] MEDS ORDERED: MAGNESIUM SULFATE/D5W 100 ML IV SCH (12:00)
[2018-12-30] MEDS: MEROPENEM 1 G in IV NORMAL SALINE 100 ML IV SCH ×2 (14:05→21:45)
--- NOTE | 2018-12-30 17:03 | NUR ---
Dr. Rome here to see pt. Full report given. No new orders received.
--- NOTE | 2018-12-30 17:50 | NUR ---
Dr. Harper here to see pt. Full report given. No new orders received.
--- NOTE | 2018-12-30 18:20 | NUR ---
Joseph Lopez here to see pt. Full report given. New orders received.
--- NOTE | 2018-12-30 18:58 | NUR ---
Received pt on Muñoz ventilator with the following settings of AC-12, Vt-500, PEEP+5, FIO2-28%, trached with Shiley#6 DCT trach, which is in the place and secure. Pt tachycardic, RN Jenelle aware. No s/s of respiratory distress noted. Airway care done, pt responded to physical stimuli. In-line HHN tx with 2.5mg Albuterol+0.5mg Atrovent given, pt tolerated well. Resus. bag and back up trach at bedside. Vent and alarms checked and reset.
--- NOTE | 2018-12-30 20:00 | NUR ---
RECEIVED PT OPENS HIS EYES TO ANY STIMULI, W/ NO EYE CONTACT.TRACH TO VENT W/ SETTINGS OF AC-12,TV-500, FIO2-28% W/ O2 SAT OF 99%. ON TUBE FDG OF VITAL AF 1.2 @ 80CC/HR VIA J-TUBE, NO RESIDUAL NOTED. G-TUBE TO LOW SUCTION & IS PATENT.PICC LINE ON WILMA INTACT & PATENT. NS @ TKO RATE FOR IVPB. ABD. DRSG INTACT & DRY. FLEXISEAL INTACT W/ LIQUIDISH LIGHT BROWNISH STOOL. SUCTIONED VIA TRACH W/ MINIMAL TANNISH MUCOUS. ORAL CARE DONE. REPOSITIONED ON HIS SIDE W/ HOB ELEVATED.
--- NOTE | 2018-12-30 22:00 | NUR ---
ABD.WOUND CARE DONE ORDERED.
[2018-12-31] VITALS (13 sets, daily range): BP systolic 94–126; BP diastolic 58–77
[2018-12-31] MEDS: VITAL AF 1.2 1,000 ML LIQUID GT PRN (00:13)
[2018-12-31] MEDS: IPRATROPIUM BROMIDE 0.5 MG/2.5 ML NEBU NEB SCH ×3 (01:00→13:48)
[2018-12-31] MEDS: ALBUTEROL SULFATE 2.5 MG/3 ML NEBU IH SCH ×3 (01:01→13:48)
--- NOTE | 2018-12-31 04:00 | NUR ---
AM CARE DONE. TRACH CARE DONE. ORAL CARE DONE. REPOSITIONED ON HIS SIDE W/ HOB ELEVATED.
[2018-12-31 04:44] LABS: BASOPHILS % (AUTO) 0.2 % (0.0-2.0); EOSINOPHILS % (AUTO) 0.2 % (0.0-7.0); HEMATOCRIT 26.1 % (36.7-47.1); HEMOGLOBIN 8.6 g/dL (12.5-16.3); LYMPHOCYTES # (AUTO) 0.7 K/uL (20.0-40.0); MEAN CORPUSCULAR HGB CONC 33 g/dL (32.5-36.3); MEAN CORPUSCULAR VOLUME 81.9 fL (73.0-96.2); MONOCYTES # (AUTO) 0.3 K/uL (2.0-10.0); MONOCYTES % (AUTO) 6.4 % (0.0-11.0); NEUTROPHILS # (AUTO) 3.6 K/uL (1.8-8.9); NEUTROPHILS % (AUTO) 78.2 % (38.5-71.5); PLATELET COUNT (AUTO) 138 K/uL (152-348); RED BLOOD CELL COUNT(AUTO) 3.18 MIL/uL (4.06-5.63); WHITE BLOOD COUNT (AUTO) 4.7 K/uL (3.6-10.2)
[2018-12-31 05:08] LABS: ALANINE AMINOTRANSFERASE 27 U/L (16-63); ALKALINE PHOSPHATASE 98 U/L (50-136); ASPARTATE AMINOTRANSFERASE 15 U/L (15-37); BILIRUBIN,TOTAL 0.4 mg/dL (0.2-1.0); CARBON DIOXIDE 27 mmol/L (21-32); CHLORIDE 107 mmol/L (98-107); CREATININE 0.5 mg/dL (0.6-1.3); GLUCOSE 140 mg/dL (74-106); MAGNESIUM 1.7 mg/dL (1.8-2.4); PHOSPHOROUS 3.5 mg/dL (2.5-4.9); POTASSIUM 3.7 mmol/L (3.5-5.1); TOTAL PROTEIN, SERUM 6.5 g/dL (6.4-8.2); UREA NITROGEN, BLOOD 20 mg/dL (7-18)
[2018-12-31] MEDS: MEROPENEM 1 G in IV NORMAL SALINE 100 ML IV SCH ×2 (05:45→13:48)
[2018-12-31] MEDS: METOCLOPRAMIDE HCL 10 MG/10 ML UDC JT SCH ×2 (05:45→13:48)
[2018-12-31] MEDS: POLYVINYL ALCOHOL OPHT DROPS 15 ML BOTTLE EACHEYE SCH ×2 (05:46→13:48)
[2018-12-31] MEDS: HEPARIN SODIUM,PORCINE 5,000 UNITS/ML VIAL SQ SCH ×2 (05:47→13:49)
[2018-12-31] MEDS: IV NORMAL SALINE 250 ML IV PRN (06:07)
--- NOTE | 2018-12-31 06:12 | NUR ---
HOLD TUBE FDG, WILL RESUME TF AT 1000.
[2018-12-31] MEDS: ZINC SULFATE 220 MG CAPSULE GT SCH (07:58)
[2018-12-31] MEDS: MULTIVITAMINS,THERAPEUTIC TABLET GT SCH (07:58)
[2018-12-31] MEDS: ASCORBIC ACID 500 MG TABLET JT SCH (07:58)
[2018-12-31] MEDS: FAMOTIDINE 20 MG TABLET JT SCH ×2 (07:58→16:09)
[2018-12-31] MEDS: Z GUARD REMEDY PASTE 57 GM TUBE TOP SCH (07:59)
[2018-12-31] MEDS: LINEZOLID 600 MG TABLET PO SCH (07:59)
[2018-12-31] MEDS: LEVETIRACETAM 500 MG/5 ML LIQUID UDC JT SCH (08:00)
[2018-12-31] MEDS: THERAHONEY GEL 1.5 OZ TUBE TOP SCH (08:01)
[2018-12-31] MEDS: PROTEIN SUPPLEMENT (PROSTAT) 30 ML LIQUID GT SCH (08:02)
--- NOTE | 2018-12-31 08:41 | NUR ---
Dr. Beltrán here to see pt. Full report given. No new orders received.
[2018-12-31] MEDS ORDERED: CLOTRIMAZOLE 1% CREAM 30 GM TUBE TOP SCH (09:00)
[2018-12-31] MEDS ORDERED: MUPIROCIN 2% OINT 22 GM TUBE TP SCH (09:00)
--- NOTE | 2018-12-31 11:11 | NUR ---
TEODORO Lezama here to see pt. Full report given. New orders received. Okay to downgrade pt to [facility] status.
[2018-12-31] MEDS: MAGNESIUM SULFATE/D5W 100 ML IV SCH ×2 (11:26→12:52)
[2018-12-31] MEDS ORDERED: MULT-24 GT (13:06)
[2018-12-31] MEDS ORDERED: MERO1VIA IV (13:06)
[2018-12-31] MEDS ORDERED: ZINC220C8 GT (13:06)
[2018-12-31] MEDS ORDERED: HEPA50007 SQ (13:06)
[2018-12-31] MEDS ORDERED: NUT.237L65 GT (13:06)
[2018-12-31] MEDS ORDERED: PROT30LI GT (13:06)
[2018-12-31] MEDS ORDERED: LINE600T2 PO (13:06)
--- NOTE | 2018-12-31 17:54 | NUR ---
Full telephone SBAR report given to TERESA Renee Sub Acute 4th floor.
--- NOTE | 2018-12-31 18:45 | NUR ---
Pt transferred to #415 Sub Acute 4th floor with respiratory therapist. Pt stable and nad noted upon discharge/transfer. Photos taken and placed in the chart. Isolation cart brought up with the pt. Vangie (daughter) already made aware of pt's transfer.
== END 2018-12-31 18:40 | DRG 22 ==
LOC: ER 14:26 → TELE-TD3 15:34 → CCU 12-26 15:05
PROVIDERS: ADMIT Internal Medicine; ATTEND Internal Medicine
PROC: 02HV33Z Insertion of Infusion Device into Superior Vena Cava, Percutaneous Approach (ICD-10-PCS; principal; 2018-12-25)
PROC: 5A1955Z Respiratory Ventilation, Greater than 96 Consecutive Hours (ICD-10-PCS; principal; 2018-12-25)
PROC: 00160J4 Bypass Cerebral Ventricle to Pleural Cavity with Synthetic Substitute, Open Approach (ICD-10-PCS; 2018-12-26)
PROC: 30233N1 Transfusion of Nonautologous Red Blood Cells into Peripheral Vein, Percutaneous Approach (ICD-10-PCS; 2018-12-28)
PROC: 0HBRXZZ Excision of Toe Nail, External Approach (ICD-10-PCS; 2018-12-30)
DX: G91.0 Communicating hydrocephalus (principal); R40.2212 Coma scale, best verbal response, none, at arrival to emergency department; R40.2312 Coma scale, best motor response, none, at arrival to emergency department; R40.2122 Coma scale, eyes open, to pain, at arrival to emergency department; E43 Unspecified severe protein-calorie malnutrition; Z99.11 Dependence on respirator [ventilator] status; J90 Pleural effusion, not elsewhere classified; G82.50 Quadriplegia, unspecified; J96.11 Chronic respiratory failure with hypoxia; G93.1 Anoxic brain damage, not elsewhere classified; Z86.74 Personal history of sudden cardiac arrest; G40.909 Epilepsy, unspecified, not intractable, without status epilepticus; L60.2 Onychogryphosis; B35.1 Tinea unguium; Z87.11 Personal history of peptic ulcer disease; Z93.1 Gastrostomy status; Z74.09 Other reduced mobility; Z86.718 Personal history of other venous thrombosis and embolism; Z87.440 Personal history of urinary (tract) infections; N39.0 Urinary tract infection, site not specified; B95.2 Enterococcus as the cause of diseases classified elsewhere; B96.20 Unspecified Escherichia coli [E. coli] as the cause of diseases classified elsewhere; Z16.12 Extended spectrum beta lactamase (ESBL) resistance; Z16.21 Resistance to vancomycin; L60.0 Ingrowing nail; Z93.4 Other artificial openings of gastrointestinal tract status; Z74.01 Bed confinement status; R50.82 Postprocedural fever; R13.10 Dysphagia, unspecified; L02.211 Cutaneous abscess of abdominal wall; B95.62 Methicillin resistant Staphylococcus aureus infection as the cause of diseases classified elsewhere; R16.1 Splenomegaly, not elsewhere classified
CPT/HCPCS: 36415; 36569; 36600; 70450; 71045; 83605; 83735; 84100; 84157; 85025; 85730; 86850; 86900; 86901; 86920; 87040; 87070; 87077; 87086; 87205; 89051; 93005; 94002; 94003; 94640; 94664; A4217; A4649; A4663; C1729; G0378; J1580; J1644; J1940; J1953; J2060; J2185; J2405; J2543; J3010; J3370; J3475; J3490; J3590; J7030; J7040; J7042; J7050; J7060; J8597; P9016-BL; P9021

== ENCOUNTER 2019-01-02 11:45 | Outpatient (CLI) | payer MEDICAID ==
[~2019-01-02 11:45] MED LIST changes: -ASCO-340 GT; +ASCO500T9 JT; -ASPI81TA31 GT; -CHOL10002 GT; -DEXT15DR6 OP; -FLUC100T8 JT; +HEPA50007 SQ; -LACO200T2 GT; +LINE600T2 PO; +MERO1VIA IV; +METO50TA16 JT; -METO50TA16 PO; +MULT-24 GT; -MULT1TAB73 GT; +MV-M1TAB2 JT; +NUT.237L65 GT; +NUT.237L65 JT; -NUT.237L65 PO; +PROT30LI GT; -RIVA10TA GT; -ZINC113P3 TP; +ZINC220C8 GT; -ZINC220C8 JT; -[UNRECOGNIZED DRUG - OTHER] TOP
== END 2019-01-02 23:59 | disposition home or self-care (01) ==
LOC: CT 11:45
PROVIDERS: ATTEND Internal Medicine Pulmonary Disease
DX: G31.89 Other specified degenerative diseases of nervous system (principal); I70.8 Atherosclerosis of other arteries; Z98.2 Presence of cerebrospinal fluid drainage device
CPT/HCPCS: 70450

== ENCOUNTER 2019-01-06 08:35 | Outpatient (CLI) | payer MEDICAID | END 2019-01-06 23:59 | disposition home or self-care (01) | LOC: CT 08:35 | PROVIDERS: ATTEND Internal Medicine | DX: G31.89 Other specified degenerative diseases of nervous system (principal); G93.89 Other specified disorders of brain; E11.9 Type 2 diabetes mellitus without complications; Z98.2 Presence of cerebrospinal fluid drainage device | CPT/HCPCS: 70450 ==

== ENCOUNTER 2019-01-09 08:58 | Outpatient (CLI) | payer MEDICAID ==
[2019-01-09] MEDS ORDERED: IOHEXOL 300MG/ML 100 ML INFUS..BTL ONE (10:26)
[2019-01-09] MEDS ORDERED: BARIUM SULFATE 450 ML ORAL.SUSP ONE ×2 (10:26→10:33)
[2019-01-09] MEDS ORDERED: SWABABLE VALVE TRANSFER SET EA MC ONE (10:26)
[2019-01-09] MEDS ORDERED: IV NORMAL SALINE 250 ML IV ONE (10:26)
== END 2019-01-09 23:59 | disposition home or self-care (01) ==
LOC: CT 08:58
PROVIDERS: ATTEND Internal Medicine
DX: R16.1 Splenomegaly, not elsewhere classified (principal); J90 Pleural effusion, not elsewhere classified; K75.0 Abscess of liver; I70.0 Atherosclerosis of aorta; E11.9 Type 2 diabetes mellitus without complications; Z93.1 Gastrostomy status; Z96.0 Presence of urogenital implants
CPT/HCPCS: 74177; Q9951 ×2; Q9967; J7050

== ENCOUNTER 2019-01-11 09:49 | Outpatient (CLI) | payer MEDICAID | END 2019-01-11 23:59 | disposition home or self-care (01) | LOC: CT 09:49 | PROVIDERS: ATTEND Neurological Surgery | DX: G93.89 Other specified disorders of brain (principal); G91.9 Hydrocephalus, unspecified; E11.9 Type 2 diabetes mellitus without complications | CPT/HCPCS: 70450 ==

== ENCOUNTER 2019-01-22 11:29 | Outpatient (CLI) | payer MEDICAID | END 2019-01-22 23:59 | disposition home or self-care (01) | LOC: CT 11:29 | PROVIDERS: ATTEND Neurological Surgery | DX: G93.89 Other specified disorders of brain (principal); G31.89 Other specified degenerative diseases of nervous system; G91.9 Hydrocephalus, unspecified; G96.0 Cerebrospinal fluid leak; E11.9 Type 2 diabetes mellitus without complications | CPT/HCPCS: 70450 ==

== ENCOUNTER 2019-02-05 09:17 | Outpatient (CLI) | payer MEDICAID ==
[2019-02-05] MEDS ORDERED: IOHEXOL 300MG/ML 100 ML INFUS..BTL ONE (09:39)
[2019-02-05] MEDS ORDERED: IV NORMAL SALINE 250 ML IV ONE (09:39)
[2019-02-05] MEDS ORDERED: SWABABLE VALVE TRANSFER SET EA MC ONE (09:39)
== END 2019-02-05 23:59 | disposition home or self-care (01) ==
LOC: CT 09:17
PROVIDERS: ATTEND Internal Medicine
DX: R16.1 Splenomegaly, not elsewhere classified (principal); K75.0 Abscess of liver; J90 Pleural effusion, not elsewhere classified; J98.11 Atelectasis; I70.0 Atherosclerosis of aorta; R60.1 Generalized edema; E11.9 Type 2 diabetes mellitus without complications; Z93.4 Other artificial openings of gastrointestinal tract status; Z96.0 Presence of urogenital implants
CPT/HCPCS: 74177; Q9967; J7050

== ENCOUNTER 2019-03-17 16:02 | Outpatient (CLI) | payer MEDICAID ==
[~2019-03-17 16:02] MED LIST changes: +LINE600T12 PO; -LINE600T2 PO; +ZINC1CAP2 GT; -ZINC220C8 GT
[2019-03-17] MEDS ORDERED: RIVA10TA PO (18:11)
[2019-03-17] MEDS ORDERED: ZINC57OI3 TP ×4 (19:34→19:38)
== END 2019-03-17 23:59 | disposition home or self-care (01) ==
LOC: CT 16:02
PROVIDERS: ATTEND Internal Medicine
DX: G96.0 Cerebrospinal fluid leak (principal); G91.9 Hydrocephalus, unspecified; G93.89 Other specified disorders of brain; I65.23 Occlusion and stenosis of bilateral carotid arteries; Z98.2 Presence of cerebrospinal fluid drainage device
CPT/HCPCS: 70450; J3490

== ENCOUNTER 2019-03-17 16:51 | Inpatient (IN) | payer MEDICAID ==
[~2019-03-17] VITALS: Ht 165.1 cm; Wt 59.0 kg
[2019-03-17] VITALS (7 sets, daily range): BP systolic 99–125; BP diastolic 58–97
[2019-03-17] MEDS: IV D5 1/2 NS 1000 ML 1,000 ML IV PRN (18:09)
[2019-03-17] MEDS ORDERED: RIVA10TA PO (18:11)
[2019-03-17] MEDS ORDERED: ZINC57OI3 TP ×4 (19:34→19:38)
[2019-03-17] MEDS: FAMOTIDINE. 20 MG/2 ML VIAL IV SCH (20:12)
[2019-03-17] MEDS: LEVETIRACETAM IV 500 MG in IV DEXTROSE 5% 100 ML IV SCH (20:12)
[2019-03-17] MEDS: COD LIVER OIL/ZINC OXIDE OINT 113 GM TUBE TP SCH (20:13)
[2019-03-18] VITALS (20 sets, daily range): BP systolic 98–123; BP diastolic 45–97
[2019-03-18] MEDS: IV D5 1/2 NS 1000 ML 1,000 ML IV PRN (05:13)
[2019-03-18 07:35] LABS: BASOPHILS % (AUTO) 0.5 % (0.0-2.0); HEMATOCRIT 37.5 % (36.7-47.1); HEMOGLOBIN 12.1 g/dL (12.5-16.3); LYMPHOCYTES # (AUTO) 1.3 K/uL (20.0-40.0); LYMPHOCYTES % (AUTO) 20.6 % (20.5-51.5); MEAN CORPUSCULAR HEMOGLOBIN 27.7 uug (23.8-33.4); MEAN CORPUSCULAR HGB CONC 32 g/dL (32.5-36.3); MONOCYTES # (AUTO) 0.5 K/uL (2.0-10.0); MONOCYTES % (AUTO) 7.7 % (0.0-11.0); NEUTROPHILS # (AUTO) 4.3 K/uL (1.8-8.9); NEUTROPHILS % (AUTO) 71.2 % (38.5-71.5); PLATELET COUNT (AUTO) 136 K/uL (152-348); RED BLOOD CELL COUNT(AUTO) 4.36 MIL/uL (4.06-5.63); WHITE BLOOD COUNT (AUTO) 6.1 K/uL (3.6-10.2)
[2019-03-18 07:48] LABS: ALANINE AMINOTRANSFERASE 34 U/L (16-63); ALKALINE PHOSPHATASE 120 U/L (50-136); ASPARTATE AMINOTRANSFERASE 14 U/L (15-37); BILIRUBIN,TOTAL 1.1 mg/dL (0.2-1.0); CARBON DIOXIDE 29 mmol/L (21-32); CHLORIDE 113 mmol/L (98-107); CREATININE 0.6 mg/dL (0.6-1.3); GLUCOSE 123 mg/dL (74-106); POTASSIUM 4.1 mmol/L (3.5-5.1); TOTAL PROTEIN, SERUM 7.2 g/dL (6.4-8.2); UREA NITROGEN, BLOOD 43 mg/dL (7-18)
[2019-03-18] MEDS: LEVETIRACETAM IV 500 MG in IV DEXTROSE 5% 100 ML IV SCH ×2 (08:08→20:57)
[2019-03-18 08:17] LABS: ABG BASE EXCESS 0.6 mmol/L; ABG HCO3 24.9 mmol/L; ABG PCO2 38.5 mmHg (35.0-45.0); ABG PH 7.428 (7.350-7.450); ABG PO2 122.1 mmHg (75.0-100.0); ABG SITE LEFT RADIAL; ABG TOTAL HEMOGLOBIN 12.1 G/dL (13.5-18.0); COHb 1.7 % (0.5-1.5); MetHb 0.3 % (0.0-1.5); O2Hb 96.7 % (94.0-97.0); VENT MODE VENT - A/C; VT, ABG 500 mL
[2019-03-18] MEDS: FAMOTIDINE. 20 MG/2 ML VIAL IV SCH ×2 (08:19→20:57)
[2019-03-18] MEDS ORDERED: ONDANSETRON 4 MG/2 ML VIAL IV ONE (11:44)
[2019-03-18] MEDS ORDERED: CEFAZOLIN 1 G VIAL MC ONE (11:44)
[2019-03-18] MEDS ORDERED: NEOSTIGMINE METHYLSULFATE 10 MG/10 ML VIAL IV ONE (11:44)
[2019-03-18] MEDS ORDERED: LIDOCAINE-MPF 2% 5 ML VIAL MC ONE (11:44)
[2019-03-18] MEDS ORDERED: SEVOFLURANE 250 ML BOTTLE IH ONE (11:44)
[2019-03-18] MEDS ORDERED: METOCLOPRAMIDE HCL 10 MG/2 ML VIAL IV ONE (11:44)
[2019-03-18] MEDS ORDERED: GLYCOPYRROLATE 0.2 MG/ML VIAL MC ONE (11:44)
[2019-03-18] MEDS ORDERED: PROPOFOL 200 MG/20 ML BOTTLE IV ONE (11:44)
[2019-03-18] MEDS ORDERED: ALBUTEROL SULFATE 2.5 MG/3 ML NEBU IH SCH (12:00)
[2019-03-18] MEDS: ALBUTEROL SULFATE 2.5 MG/ 0.5 ML NEBU NEB SCH ×2 (13:44→22:36)
[2019-03-18] MEDS: IPRATROPIUM BROMIDE 0.5 MG/2.5 ML NEBU NEB SCH ×2 (13:44→22:36)
[2019-03-18] MEDS: COD LIVER OIL/ZINC OXIDE OINT 113 GM TUBE TP SCH ×2 (14:35→21:05)
[2019-03-18] MEDS: POLYVINYL ALCOHOL OPHT DROPS 15 ML BOTTLE EACHEYE SCH ×2 (14:36→21:05)
[2019-03-18 14:50] LABS: *BILIRUBIN,URIN NEGATIVE (NEGATIVE); *BLOOD, URINE 1+ (NEGATIVE); *CLARITY,URINE CLOUDY (CLEAR); *COLOR,URINE YELLOW (YELLOW); *KETONES,URINE NEGATIVE (NEGATIVE); *UROBILINOGEN,URINE 0.2 E.U./dl (NORMAL); LEUKOCYTE ESTERASE ,URINE 3+ (NEGATIVE); NITRITE, URINE NEGATIVE (NEGATIVE); PH,URINE >=9.0 (5.0-8.0); UGLUCOSE NEGATIVE (NEGATIVE)
[2019-03-18 16:01] LABS: BACTERIA,URINE 2 /HPF (NONE SEEN); URIC ACID CRYSTALS,URINE MANY /HPF (NONE SEEN); WBC,URINE 20-50 /HPF (0-3)
[2019-03-18] MEDS ORDERED: POLYMYXIN B SULFATE 500,000 UNITS, BACITRACIN 50,000 UNITS, NORMAL SALINE 20 ML MC ONE ×3 (16:30)
[2019-03-18] MEDS ORDERED: FENTANYL CITRATE 250 MCG/5 ML AMPUL ONE (16:33)
[2019-03-18] MEDS ORDERED: MIDAZOLAM HCL 2 MG/2 ML VIAL ONE (16:33)
[2019-03-18] MEDS ORDERED: ROCURONIUM BROMIDE 50 MG/5 ML VIAL ONE (16:34)
[2019-03-18] MEDS ORDERED: BACITRACIN ZINC OINT 15 GM TUBE ONE (16:39)
[2019-03-18] MEDS ORDERED: LIDOCAINE 1%-EPI 1:100,000 20 ML VIAL ONE (16:39)
[2019-03-18] MEDS ORDERED: VANCOMYCIN 1000 MG VIAL ONE (16:39)
[2019-03-18] MEDS ORDERED: CEFTRIAXONE 1 G in IV DEXTROSE 5% 50 ML IV SCH (20:00)
[2019-03-18] MEDS: CEFAZOLIN 2 G in IV DEXTROSE 5% 100 ML IV SCH (23:37)
[2019-03-19] VITALS (21 sets, daily range): BP systolic 96–125; BP diastolic 49–69
[2019-03-19] MEDS: ALBUTEROL SULFATE 2.5 MG/ 0.5 ML NEBU NEB SCH ×4 (01:28→20:11)
[2019-03-19] MEDS: IPRATROPIUM BROMIDE 0.5 MG/2.5 ML NEBU NEB SCH ×4 (01:28→20:11)
[2019-03-19] MEDS: IV D5 1/2 NS 1000 ML 1,000 ML IV PRN ×2 (04:48→21:27)
[2019-03-19] MEDS: POLYVINYL ALCOHOL OPHT DROPS 15 ML BOTTLE EACHEYE SCH ×3 (04:57→21:26)
[2019-03-19 05:40] LABS: CARBON DIOXIDE 29 mmol/L (21-32); CHLORIDE 111 mmol/L (98-107); CREATININE 0.5 mg/dL (0.6-1.3); GLUCOSE 125 mg/dL (74-106); MAGNESIUM 1.6 mg/dL (1.8-2.4); POTASSIUM 3.5 mmol/L (3.5-5.1); UREA NITROGEN, BLOOD 34 mg/dL (7-18)
[2019-03-19 07:02] LABS: CSF GLUCOSE 80 mg/dL (40-70); CSF PROTEIN 172 mg/dL (15-45)
[2019-03-19] MEDS ORDERED: POTASSIUM CHLORIDE 50 ML IV SCH (08:30)
[2019-03-19] MEDS: FAMOTIDINE. 20 MG/2 ML VIAL IV SCH ×2 (09:05→20:39)
[2019-03-19] MEDS: COD LIVER OIL/ZINC OXIDE OINT 113 GM TUBE TP SCH ×2 (09:06→20:41)
[2019-03-19] MEDS: MAGNESIUM SULFATE/D5W 100 ML IV SCH ×2 (09:19→11:12)
[2019-03-19] MEDS: LEVETIRACETAM IV 500 MG in IV DEXTROSE 5% 100 ML IV SCH ×2 (09:20→21:00)
[2019-03-19] MEDS: CEFAZOLIN 2 G in IV DEXTROSE 5% 100 ML IV SCH ×2 (11:42→23:19)
[2019-03-19] MEDS ORDERED: THERAHONEY GEL 1.5 OZ TUBE TOP SCH (16:30)
[2019-03-20] MEDS: ALBUTEROL SULFATE 2.5 MG/ 0.5 ML NEBU NEB SCH ×2 (01:13→07:42)
[2019-03-20] MEDS: IPRATROPIUM BROMIDE 0.5 MG/2.5 ML NEBU NEB SCH ×2 (01:13→07:42)
[2019-03-20 04:03] VITALS: BP 114/60
[2019-03-20] MEDS: POLYVINYL ALCOHOL OPHT DROPS 15 ML BOTTLE EACHEYE SCH (05:45)
[2019-03-20 08:00] VITALS: BP 117/69
[2019-03-20] MEDS: LEVETIRACETAM IV 500 MG in IV DEXTROSE 5% 100 ML IV SCH (08:33)
[2019-03-20] MEDS: FAMOTIDINE. 20 MG/2 ML VIAL IV SCH (08:33)
[2019-03-20] MEDS: COD LIVER OIL/ZINC OXIDE OINT 113 GM TUBE TP SCH (08:34)
[2019-03-20] MEDS ORDERED: THERAHONEY GEL 1.5 OZ TUBE TOP SCH (09:00)
[2019-03-20] MEDS ORDERED: CEPH-570 JT (10:11)
[2019-03-20] MEDS ORDERED: METO-295 JT (10:11)
== END 2019-03-20 11:45 | DRG 22 ==
LOC: CCU 16:51
PROVIDERS: ADMIT Internal Medicine; ATTEND Internal Medicine
DX: Z45.41 Encounter for adjustment and management of cerebrospinal fluid drainage device (principal); Z99.11 Dependence on respirator [ventilator] status; G93.1 Anoxic brain damage, not elsewhere classified; E43 Unspecified severe protein-calorie malnutrition; J96.11 Chronic respiratory failure with hypoxia; J90 Pleural effusion, not elsewhere classified; Z93.0 Tracheostomy status; G91.0 Communicating hydrocephalus; Z46.89 Encounter for fitting and adjustment of other specified devices; D68.59 Other primary thrombophilia; R13.10 Dysphagia, unspecified; E78.5 Hyperlipidemia, unspecified; I25.10 Atherosclerotic heart disease of native coronary artery without angina pectoris; N39.0 Urinary tract infection, site not specified; B96.89 Other specified bacterial agents as the cause of diseases classified elsewhere; R80.9 Proteinuria, unspecified; R31.29 Other microscopic hematuria; E11.69 Type 2 diabetes mellitus with other specified complication; Z93.4 Other artificial openings of gastrointestinal tract status; M86.9 Osteomyelitis, unspecified; I11.9 Hypertensive heart disease without heart failure; Z68.21 Body mass index [BMI] 21.0-21.9, adult; B96.4 Proteus (mirabilis) (morganii) as the cause of diseases classified elsewhere; Z98.2 Presence of cerebrospinal fluid drainage device; Z16.23 Resistance to quinolones and fluoroquinolones; Z86.74 Personal history of sudden cardiac arrest; D64.9 Anemia, unspecified; Z87.11 Personal history of peptic ulcer disease; Z87.440 Personal history of urinary (tract) infections; Z93.1 Gastrostomy status; Z86.718 Personal history of other venous thrombosis and embolism; Z79.2 Long term (current) use of antibiotics; Z74.09 Other reduced mobility
CPT/HCPCS: 36415; 36600; 70450; 71045; 83735; 84100; 84157; 85025; 85730; 87070; 87077; 87086; 87205; 89051; 94002; 94003; 94640; 94664; A4217; A4649; G0378; J0690; J0696; J1953; J2250; J2405; J2710; J2765; J3010; J3370; J3475; J3480; J3490; J3590; J7060

== ENCOUNTER 2019-04-16 | Inpatient (IN) | payer MEDICAID ==
[~2019-04-16] VITALS: Ht 167.6 cm; Wt 72.6 kg
[2019-04-17 08:30] VITALS: BP 117/37
[2019-04-17] MEDS ORDERED: HYDROGEN PEROXIDE 3% 118 ML BOTTLE TP PRN (11:45)
[2019-04-17] MEDS ORDERED: HYDROCODONE/APAP 10-325 MG TABLET JT PRN (11:45)
[2019-04-17] MEDS ORDERED: ACETAMINOPHEN 650 MG/20 ML UDC- SA PATIENTS-FEVER ONLY JT PRN (11:45)
[2019-04-17] MEDS: VITAL AF 1.2 1,000 ML LIQUID JT PRN (16:38)
[2019-04-17] MEDS: FAMOTIDINE 20 MG TABLET JT SCH (17:07)
[2019-04-17] MEDS: ALBUTEROL SULFATE 2.5 MG/3 ML NEBU NEB SCH (19:06)
[2019-04-17] MEDS: IPRATROPIUM BROMIDE 0.5 MG/2.5 ML NEBU NEB SCH (19:06)
[2019-04-17 20:01] VITALS: BP 114/58
[2019-04-17] MEDS: PROTEIN SUPPLEMENT (PROSTAT) 30 ML LIQUID GT SCH (20:19)
[2019-04-17] MEDS: LEVETIRACETAM 500 MG/5 ML LIQUID UDC JT SCH (20:19)
[2019-04-17] MEDS: MULTIVIT, IRON, MIN NO. 8, FA TABLET JT SCH (20:21)
[2019-04-17] MEDS: ASCORBIC ACID 500 MG TABLET JT SCH (20:21)
[2019-04-17] MEDS: ARGINAID JT SCH (20:21)
[2019-04-17] MEDS: METOPROLOL TARTRATE 50 MG TABLET JT SCH (20:21)
[2019-04-17] MEDS: THERAHONEY GEL 1.5 OZ TUBE TOP SCH (20:22)
[2019-04-17] MEDS: NYSTATIN CREAM 30 GM TUBE TP SCH (20:22)
[2019-04-17] MEDS: RIVAROXABAN 10 MG TABLET JT SCH (20:22)
[2019-04-17] MEDS: COD LIVER OIL/ZINC OXIDE OINT 113 GM TUBE TP SCH (20:25)
[2019-04-17] MEDS: HYDROGEN PEROXIDE 3% 118 ML BOTTLE TP SCH (21:05)
[2019-04-17] MEDS: POLYVINYL ALCOHOL OPHT DROPS 15 ML BOTTLE EACHEYE SCH (22:00)
[2019-04-17] MEDS: METOCLOPRAMIDE HCL 10 MG/10 ML UDC JT SCH (22:00)
[2019-04-18] MEDS: IPRATROPIUM BROMIDE 0.5 MG/2.5 ML NEBU NEB SCH ×4 (00:56→19:33)
[2019-04-18] MEDS: ALBUTEROL SULFATE 2.5 MG/3 ML NEBU NEB SCH ×4 (00:57→19:33)
[2019-04-18] MEDS: VITAL AF 1.2 1,000 ML LIQUID JT PRN ×2 (04:11→17:33)
[2019-04-18] MEDS: METOCLOPRAMIDE HCL 10 MG/10 ML UDC JT SCH ×3 (06:44→22:22)
[2019-04-18] MEDS: FAMOTIDINE 20 MG TABLET JT SCH ×2 (06:44→17:30)
[2019-04-18] MEDS: POLYVINYL ALCOHOL OPHT DROPS 15 ML BOTTLE EACHEYE SCH ×3 (06:44→22:22)
[2019-04-18 08:02] VITALS: BP 117/69
[2019-04-18] MEDS: LEVETIRACETAM 500 MG/5 ML LIQUID UDC JT SCH ×2 (09:18→20:09)
[2019-04-18] MEDS: THERAHONEY GEL 1.5 OZ TUBE TOP SCH ×2 (09:20→20:09)
[2019-04-18] MEDS: NYSTATIN CREAM 30 GM TUBE TP SCH ×2 (09:20→20:10)
[2019-04-18] MEDS: METOPROLOL TARTRATE 50 MG TABLET JT SCH ×2 (09:20→20:09)
[2019-04-18] MEDS: COD LIVER OIL/ZINC OXIDE OINT 113 GM TUBE TP SCH ×2 (09:20→20:09)
[2019-04-18] MEDS: ASCORBIC ACID 500 MG TABLET JT SCH ×2 (09:20→20:09)
[2019-04-18] MEDS: ACETAMINOPHEN 650 MG/20 ML UDC- SA PATIENTS-PAIN ONLY JT PRN (09:23)
[2019-04-18] MEDS: HYDROGEN PEROXIDE 3% 118 ML BOTTLE TP SCH ×2 (09:55→20:19)
[2019-04-18] MEDS: MULTIVIT, IRON, MIN NO. 8, FA TABLET JT SCH (20:09)
[2019-04-18] MEDS: ARGINAID JT SCH (20:09)
[2019-04-18] MEDS: PROTEIN SUPPLEMENT (PROSTAT) 30 ML LIQUID GT SCH (20:09)
[2019-04-18 20:18] VITALS: BP 103/64
[2019-04-18] MEDS: RIVAROXABAN 10 MG TABLET JT SCH (20:18)
[2019-04-19] MEDS: IPRATROPIUM BROMIDE 0.5 MG/2.5 ML NEBU NEB SCH ×4 (01:07→19:25)
[2019-04-19] MEDS: ALBUTEROL SULFATE 2.5 MG/3 ML NEBU NEB SCH ×4 (01:07→19:25)
[2019-04-19] MEDS: VITAL AF 1.2 1,000 ML LIQUID JT PRN ×2 (04:30→16:37)
[2019-04-19] MEDS: METOCLOPRAMIDE HCL 10 MG/10 ML UDC JT SCH ×3 (06:13→22:47)
[2019-04-19] MEDS: POLYVINYL ALCOHOL OPHT DROPS 15 ML BOTTLE EACHEYE SCH ×3 (06:13→22:47)
[2019-04-19] MEDS: FAMOTIDINE 20 MG TABLET JT SCH ×2 (06:13→17:29)
[2019-04-19 08:30] VITALS: BP 115/45
[2019-04-19] MEDS: HYDROGEN PEROXIDE 3% 118 ML BOTTLE TP SCH ×2 (09:00→21:13)
[2019-04-19] MEDS: LEVETIRACETAM 500 MG/5 ML LIQUID UDC JT SCH ×2 (09:28→20:21)
[2019-04-19] MEDS: METOPROLOL TARTRATE 50 MG TABLET JT SCH ×2 (09:28→20:22)
[2019-04-19] MEDS: COD LIVER OIL/ZINC OXIDE OINT 113 GM TUBE TP SCH ×2 (09:29→20:23)
[2019-04-19] MEDS: THERAHONEY GEL 1.5 OZ TUBE TOP SCH ×2 (09:29→20:23)
[2019-04-19] MEDS: ASCORBIC ACID 500 MG TABLET JT SCH ×2 (09:29→20:23)
[2019-04-19] MEDS: NYSTATIN CREAM 30 GM TUBE TP SCH ×2 (09:29→20:23)
[2019-04-19] MEDS: ACETAMINOPHEN 650 MG/20 ML UDC- SA PATIENTS-PAIN ONLY JT PRN (09:30)
[2019-04-19] MEDS: PROTEIN SUPPLEMENT (PROSTAT) 30 ML LIQUID GT SCH (20:20)
[2019-04-19] MEDS: ARGINAID JT SCH (20:22)
[2019-04-19] MEDS: MULTIVIT, IRON, MIN NO. 8, FA TABLET JT SCH (20:23)
[2019-04-19] MEDS: RIVAROXABAN 10 MG TABLET JT SCH (20:39)
[2019-04-19 20:51] VITALS: BP 114/56
[2019-04-20] MEDS: ALBUTEROL SULFATE 2.5 MG/3 ML NEBU NEB SCH ×4 (00:55→19:16)
[2019-04-20] MEDS: IPRATROPIUM BROMIDE 0.5 MG/2.5 ML NEBU NEB SCH ×4 (00:55→19:16)
[2019-04-20] MEDS: FAMOTIDINE 20 MG TABLET JT SCH ×2 (06:08→18:17)
[2019-04-20] MEDS: POLYVINYL ALCOHOL OPHT DROPS 15 ML BOTTLE EACHEYE SCH ×3 (06:08→21:34)
[2019-04-20] MEDS: METOCLOPRAMIDE HCL 10 MG/10 ML UDC JT SCH ×3 (06:08→21:34)
[2019-04-20 08:30] VITALS: BP 123/54
[2019-04-20] MEDS: HYDROGEN PEROXIDE 3% 118 ML BOTTLE TP SCH ×2 (09:00→20:06)
[2019-04-20] MEDS: LEVETIRACETAM 500 MG/5 ML LIQUID UDC JT SCH ×2 (09:44→21:31)
[2019-04-20] MEDS: ASCORBIC ACID 500 MG TABLET JT SCH ×2 (09:44→21:33)
[2019-04-20] MEDS: NYSTATIN CREAM 30 GM TUBE TP SCH ×2 (09:44→21:34)
[2019-04-20] MEDS: COD LIVER OIL/ZINC OXIDE OINT 113 GM TUBE TP SCH ×2 (09:44→21:33)
[2019-04-20] MEDS: METOPROLOL TARTRATE 50 MG TABLET JT SCH ×2 (09:44→21:32)
[2019-04-20 21:15] VITALS: BP 125/71
[2019-04-20] MEDS: PROTEIN SUPPLEMENT (PROSTAT) 30 ML LIQUID GT SCH (21:31)
[2019-04-20] MEDS: MULTIVIT, IRON, MIN NO. 8, FA TABLET JT SCH (21:33)
[2019-04-20] MEDS: RIVAROXABAN 10 MG TABLET JT SCH (21:36)
[2019-04-20] MEDS: ARGINAID JT SCH (21:37)
[2019-04-21] MEDS: IPRATROPIUM BROMIDE 0.5 MG/2.5 ML NEBU NEB SCH ×4 (01:10→19:41)
[2019-04-21] MEDS: ALBUTEROL SULFATE 2.5 MG/3 ML NEBU NEB SCH ×4 (01:11→19:41)
[2019-04-21] MEDS: VITAL AF 1.2 1,000 ML LIQUID JT PRN (01:53)
[2019-04-21] MEDS: POLYVINYL ALCOHOL OPHT DROPS 15 ML BOTTLE EACHEYE SCH ×3 (05:02→21:26)
[2019-04-21] MEDS: METOCLOPRAMIDE HCL 10 MG/10 ML UDC JT SCH ×3 (05:02→21:26)
[2019-04-21] MEDS: FAMOTIDINE 20 MG TABLET JT SCH ×2 (05:02→18:05)
[2019-04-21] MEDS: LEVETIRACETAM 500 MG/5 ML LIQUID UDC JT SCH ×2 (08:08→21:23)
[2019-04-21] MEDS: COD LIVER OIL/ZINC OXIDE OINT 113 GM TUBE TP SCH ×2 (08:09→21:25)
[2019-04-21] MEDS: METOPROLOL TARTRATE 50 MG TABLET JT SCH ×2 (08:09→21:25)
[2019-04-21] MEDS: ASCORBIC ACID 500 MG TABLET JT SCH ×2 (08:09→21:25)
[2019-04-21 08:30] VITALS: BP 110/56
[2019-04-21] MEDS: HYDROGEN PEROXIDE 3% 118 ML BOTTLE TP SCH ×2 (08:53→21:50)
[2019-04-21] MEDS: NYSTATIN CREAM 30 GM TUBE TP SCH ×2 (09:45→21:26)
[2019-04-21] MEDS: PROTEIN SUPPLEMENT (PROSTAT) 30 ML LIQUID GT SCH (21:23)
[2019-04-21] MEDS: ARGINAID JT SCH (21:25)
[2019-04-21] MEDS: MULTIVIT, IRON, MIN NO. 8, FA TABLET JT SCH (21:25)
[2019-04-21] MEDS: RIVAROXABAN 10 MG TABLET JT SCH (21:30)
[2019-04-21 21:58] VITALS: BP 125/57
[2019-04-22] MEDS: IPRATROPIUM BROMIDE 0.5 MG/2.5 ML NEBU NEB SCH ×4 (01:50→18:35)
[2019-04-22] MEDS: ALBUTEROL SULFATE 2.5 MG/3 ML NEBU NEB SCH ×4 (01:50→18:35)
[2019-04-22] MEDS: FAMOTIDINE 20 MG TABLET JT SCH ×2 (05:59→17:19)
[2019-04-22] MEDS: POLYVINYL ALCOHOL OPHT DROPS 15 ML BOTTLE EACHEYE SCH ×3 (05:59→21:38)
[2019-04-22] MEDS: METOCLOPRAMIDE HCL 10 MG/10 ML UDC JT SCH ×3 (05:59→21:38)
[2019-04-22 08:00] VITALS: BP 98/69
[2019-04-22] MEDS: LEVETIRACETAM 500 MG/5 ML LIQUID UDC JT SCH ×2 (08:52→21:36)
[2019-04-22] MEDS: METOPROLOL TARTRATE 50 MG TABLET JT SCH ×2 (08:53→21:37)
[2019-04-22] MEDS: COD LIVER OIL/ZINC OXIDE OINT 113 GM TUBE TP SCH ×2 (08:54→21:37)
[2019-04-22] MEDS: ASCORBIC ACID 500 MG TABLET JT SCH ×2 (08:54→21:37)
[2019-04-22] MEDS: NYSTATIN CREAM 30 GM TUBE TP SCH ×2 (08:54→21:38)
[2019-04-22] MEDS: HYDROGEN PEROXIDE 3% 118 ML BOTTLE TP SCH ×2 (09:35→20:28)
[2019-04-22] MEDS: VITAL AF 1.2 1,000 ML LIQUID JT PRN ×2 (17:34→22:30)
[2019-04-22] MEDS: RIVAROXABAN 10 MG TABLET JT SCH (21:00)
[2019-04-22 21:12] VITALS: BP 133/60
[2019-04-22 21:30] VITALS: BP 133/60
[2019-04-22] MEDS: PROTEIN SUPPLEMENT (PROSTAT) 30 ML LIQUID GT SCH (21:36)
[2019-04-22] MEDS: ARGINAID JT SCH (21:37)
[2019-04-22] MEDS: MULTIVIT, IRON, MIN NO. 8, FA TABLET JT SCH (21:37)
[2019-04-23] MEDS: ALBUTEROL SULFATE 2.5 MG/3 ML NEBU NEB SCH ×4 (01:38→19:18)
[2019-04-23] MEDS: IPRATROPIUM BROMIDE 0.5 MG/2.5 ML NEBU NEB SCH ×4 (01:38→19:18)
[2019-04-23] MEDS: POLYVINYL ALCOHOL OPHT DROPS 15 ML BOTTLE EACHEYE SCH ×3 (06:08→22:02)
[2019-04-23] MEDS: METOCLOPRAMIDE HCL 10 MG/10 ML UDC JT SCH ×3 (06:08→22:02)
[2019-04-23] MEDS: FAMOTIDINE 20 MG TABLET JT SCH ×2 (06:08→17:06)
[2019-04-23 08:00] VITALS: BP 112/74
[2019-04-23] MEDS: LEVETIRACETAM 500 MG/5 ML LIQUID UDC JT SCH ×2 (08:49→21:00)
[2019-04-23] MEDS: NYSTATIN CREAM 30 GM TUBE TP SCH ×2 (08:49→21:00)
[2019-04-23] MEDS: ASCORBIC ACID 500 MG TABLET JT SCH ×2 (08:49→21:00)
[2019-04-23] MEDS: COD LIVER OIL/ZINC OXIDE OINT 113 GM TUBE TP SCH ×2 (08:49→21:00)
[2019-04-23] MEDS: METOPROLOL TARTRATE 50 MG TABLET JT SCH ×2 (08:49→21:00)
[2019-04-23] MEDS: HYDROGEN PEROXIDE 3% 118 ML BOTTLE TP SCH ×2 (09:00→20:52)
[2019-04-23 20:56] VITALS: BP 111/50
[2019-04-23] MEDS: ARGINAID JT SCH (21:00)
[2019-04-23] MEDS: MULTIVIT, IRON, MIN NO. 8, FA TABLET JT SCH (21:00)
[2019-04-23] MEDS: RIVAROXABAN 10 MG TABLET JT SCH (21:00)
[2019-04-23] MEDS: PROTEIN SUPPLEMENT (PROSTAT) 30 ML LIQUID GT SCH (21:59)
[2019-04-24] MEDS: VITAL AF 1.2 1,000 ML LIQUID JT PRN (01:45)
[2019-04-24] MEDS: ALBUTEROL SULFATE 2.5 MG/3 ML NEBU NEB SCH ×4 (01:47→19:54)
[2019-04-24] MEDS: IPRATROPIUM BROMIDE 0.5 MG/2.5 ML NEBU NEB SCH ×4 (01:47→19:54)
[2019-04-24] MEDS: METOCLOPRAMIDE HCL 10 MG/10 ML UDC JT SCH ×3 (05:42→21:45)
[2019-04-24] MEDS: POLYVINYL ALCOHOL OPHT DROPS 15 ML BOTTLE EACHEYE SCH ×3 (05:42→21:45)
[2019-04-24] MEDS: FAMOTIDINE 20 MG TABLET JT SCH ×2 (05:42→17:15)
[2019-04-24 08:00] VITALS: BP 113/64
[2019-04-24] MEDS: HYDROGEN PEROXIDE 3% 118 ML BOTTLE TP SCH ×2 (08:26→20:23)
[2019-04-24] MEDS: LEVETIRACETAM 500 MG/5 ML LIQUID UDC JT SCH ×2 (08:35→20:19)
[2019-04-24] MEDS: NYSTATIN CREAM 30 GM TUBE TP SCH ×2 (08:36→20:25)
[2019-04-24] MEDS: METOPROLOL TARTRATE 50 MG TABLET JT SCH ×2 (08:36→20:20)
[2019-04-24] MEDS: COD LIVER OIL/ZINC OXIDE OINT 113 GM TUBE TP SCH ×2 (08:36→20:23)
[2019-04-24] MEDS: ASCORBIC ACID 500 MG TABLET JT SCH ×2 (08:36→20:21)
[2019-04-24] MEDS: PROTEIN SUPPLEMENT (PROSTAT) 30 ML LIQUID GT SCH (20:19)
[2019-04-24] MEDS: ARGINAID JT SCH (20:21)
[2019-04-24] MEDS: MULTIVIT, IRON, MIN NO. 8, FA TABLET JT SCH (20:21)
[2019-04-24] MEDS: THERAHONEY GEL 1.5 OZ TUBE TOP SCH (20:22)
[2019-04-24] MEDS: RIVAROXABAN 10 MG TABLET JT SCH (20:22)
[2019-04-24 20:29] VITALS: BP 107/39
[2019-04-25] MEDS: IPRATROPIUM BROMIDE 0.5 MG/2.5 ML NEBU NEB SCH ×4 (01:12→20:24)
[2019-04-25] MEDS: ALBUTEROL SULFATE 2.5 MG/3 ML NEBU NEB SCH ×4 (01:12→20:24)
[2019-04-25] MEDS: METOCLOPRAMIDE HCL 10 MG/10 ML UDC JT SCH ×3 (05:43→21:38)
[2019-04-25] MEDS: FAMOTIDINE 20 MG TABLET JT SCH ×2 (05:43→17:45)
[2019-04-25] MEDS: POLYVINYL ALCOHOL OPHT DROPS 15 ML BOTTLE EACHEYE SCH ×3 (05:43→21:38)
[2019-04-25] MEDS: METOPROLOL TARTRATE 50 MG TABLET JT SCH ×2 (08:47→20:34)
[2019-04-25] MEDS: ASCORBIC ACID 500 MG TABLET JT SCH ×2 (08:47→20:34)
[2019-04-25] MEDS: LEVETIRACETAM 500 MG/5 ML LIQUID UDC JT SCH ×2 (08:47→20:34)
[2019-04-25] MEDS: NYSTATIN CREAM 30 GM TUBE TP SCH ×2 (08:48→20:34)
[2019-04-25] MEDS: THERAHONEY GEL 1.5 OZ TUBE TOP SCH ×2 (08:48→20:34)
[2019-04-25] MEDS: COD LIVER OIL/ZINC OXIDE OINT 113 GM TUBE TP SCH ×2 (08:48→20:34)
[2019-04-25] MEDS: HYDROGEN PEROXIDE 3% 118 ML BOTTLE TP SCH ×2 (09:45→20:24)
[2019-04-25 10:06] VITALS: BP 105/69
[2019-04-25] MEDS: RIVAROXABAN 10 MG TABLET JT SCH (20:27)
[2019-04-25] MEDS: ARGINAID JT SCH (20:34)
[2019-04-25] MEDS: PROTEIN SUPPLEMENT (PROSTAT) 30 ML LIQUID GT SCH (20:34)
[2019-04-25] MEDS: MULTIVIT, IRON, MIN NO. 8, FA TABLET JT SCH (20:34)
[2019-04-25 20:40] VITALS: BP 119/50
[2019-04-25] MEDS: VITAL AF 1.2 1,000 ML LIQUID JT PRN (22:45)
[2019-04-26] MEDS: ALBUTEROL SULFATE 2.5 MG/3 ML NEBU NEB SCH ×4 (00:45→19:35)
[2019-04-26] MEDS: IPRATROPIUM BROMIDE 0.5 MG/2.5 ML NEBU NEB SCH ×4 (00:45→19:35)
[2019-04-26] MEDS: POLYVINYL ALCOHOL OPHT DROPS 15 ML BOTTLE EACHEYE SCH ×3 (06:11→21:35)
[2019-04-26] MEDS: FAMOTIDINE 20 MG TABLET JT SCH ×2 (06:11→18:19)
[2019-04-26] MEDS: METOCLOPRAMIDE HCL 10 MG/10 ML UDC JT SCH ×3 (06:11→21:35)
[2019-04-26] MEDS: HYDROGEN PEROXIDE 3% 118 ML BOTTLE TP SCH ×2 (08:20→21:09)
[2019-04-26] MEDS: LEVETIRACETAM 500 MG/5 ML LIQUID UDC JT SCH ×2 (08:42→20:44)
[2019-04-26] MEDS: ASCORBIC ACID 500 MG TABLET JT SCH ×2 (08:45→21:35)
[2019-04-26] MEDS: METOPROLOL TARTRATE 50 MG TABLET JT SCH ×2 (08:45→20:44)
[2019-04-26] MEDS: NYSTATIN CREAM 30 GM TUBE TP SCH ×2 (08:46→21:35)
[2019-04-26] MEDS: THERAHONEY GEL 1.5 OZ TUBE TOP SCH ×2 (08:46→21:35)
[2019-04-26] MEDS: COD LIVER OIL/ZINC OXIDE OINT 113 GM TUBE TP SCH ×2 (08:46→21:35)
[2019-04-26 11:44] VITALS: BP 124/54
[2019-04-26 20:20] VITALS: BP 116/71
[2019-04-26] MEDS: RIVAROXABAN 10 MG TABLET JT SCH (20:42)
[2019-04-26] MEDS: PROTEIN SUPPLEMENT (PROSTAT) 30 ML LIQUID GT SCH (20:44)
[2019-04-26] MEDS: MULTIVIT, IRON, MIN NO. 8, FA TABLET JT SCH (21:35)
[2019-04-26] MEDS: ARGINAID JT SCH (21:35)
[2019-04-27] MEDS: ALBUTEROL SULFATE 2.5 MG/3 ML NEBU NEB SCH ×4 (00:55→19:58)
[2019-04-27] MEDS: IPRATROPIUM BROMIDE 0.5 MG/2.5 ML NEBU NEB SCH ×4 (00:55→19:58)
[2019-04-27] MEDS: VITAL AF 1.2 1,000 ML LIQUID JT PRN (02:11)
[2019-04-27] MEDS: FAMOTIDINE 20 MG TABLET JT SCH ×2 (05:18→18:05)
[2019-04-27] MEDS: METOCLOPRAMIDE HCL 10 MG/10 ML UDC JT SCH ×3 (05:18→22:04)
[2019-04-27] MEDS: POLYVINYL ALCOHOL OPHT DROPS 15 ML BOTTLE EACHEYE SCH ×3 (05:18→22:03)
[2019-04-27] MEDS: LEVETIRACETAM 500 MG/5 ML LIQUID UDC JT SCH ×2 (08:41→21:50)
[2019-04-27] MEDS: METOPROLOL TARTRATE 50 MG TABLET JT SCH ×2 (08:41→21:50)
[2019-04-27] MEDS: ASCORBIC ACID 500 MG TABLET JT SCH ×2 (08:42→21:50)
[2019-04-27] MEDS: COD LIVER OIL/ZINC OXIDE OINT 113 GM TUBE TP SCH ×2 (08:42→21:50)
[2019-04-27] MEDS: NYSTATIN CREAM 30 GM TUBE TP SCH ×2 (08:42→21:50)
[2019-04-27] MEDS: THERAHONEY GEL 1.5 OZ TUBE TOP SCH ×2 (08:42→21:50)
[2019-04-27] MEDS: HYDROGEN PEROXIDE 3% 118 ML BOTTLE TP SCH ×2 (09:00→20:35)
[2019-04-27 11:10] VITALS: BP 123/58
[2019-04-27 20:20] VITALS: BP 114/62
[2019-04-27] MEDS: MULTIVIT, IRON, MIN NO. 8, FA TABLET JT SCH (21:50)
[2019-04-27] MEDS: ARGINAID JT SCH (21:50)
[2019-04-27] MEDS: RIVAROXABAN 10 MG TABLET JT SCH (21:50)
[2019-04-27] MEDS: PROTEIN SUPPLEMENT (PROSTAT) 30 ML LIQUID GT SCH (21:57)
[2019-04-28] MEDS: IPRATROPIUM BROMIDE 0.5 MG/2.5 ML NEBU NEB SCH ×4 (01:14→19:20)
[2019-04-28] MEDS: ALBUTEROL SULFATE 2.5 MG/3 ML NEBU NEB SCH ×4 (01:14→19:20)
[2019-04-28] MEDS: FAMOTIDINE 20 MG TABLET JT SCH ×2 (06:15→17:25)
[2019-04-28] MEDS: POLYVINYL ALCOHOL OPHT DROPS 15 ML BOTTLE EACHEYE SCH ×3 (06:15→22:13)
[2019-04-28] MEDS: METOCLOPRAMIDE HCL 10 MG/10 ML UDC JT SCH ×3 (06:15→22:13)
[2019-04-28 07:28] LABS: BASOPHILS % (AUTO) 0.4 % (0.0-2.0); EOSINOPHILS % (AUTO) 0.2 % (0.0-7.0); HEMATOCRIT 35.1 % (36.7-47.1); HEMOGLOBIN 11.4 g/dL (12.5-16.3); LYMPHOCYTES # (AUTO) 1.3 K/uL (20.0-40.0); LYMPHOCYTES % (AUTO) 21.8 % (20.5-51.5); MEAN CORPUSCULAR HEMOGLOBIN 27.7 uug (23.8-33.4); MEAN CORPUSCULAR HGB CONC 32 g/dL (32.5-36.3); MEAN CORPUSCULAR VOLUME 85.4 fL (73.0-96.2); MONOCYTES # (AUTO) 0.6 K/uL (2.0-10.0); MONOCYTES % (AUTO) 10.6 % (0.0-11.0); NEUTROPHILS # (AUTO) 3.9 K/uL (1.8-8.9); PLATELET COUNT (AUTO) 111 K/uL (152-348); RED BLOOD CELL COUNT(AUTO) 4.11 MIL/uL (4.06-5.63); WHITE BLOOD COUNT (AUTO) 5.8 K/uL (3.6-10.2)
[2019-04-28 08:18] LABS: ALANINE AMINOTRANSFERASE 33 U/L (16-63); ALKALINE PHOSPHATASE 100 U/L (50-136); ASPARTATE AMINOTRANSFERASE 9 U/L (15-37); BILIRUBIN,TOTAL 0.8 mg/dL (0.2-1.0); CARBON DIOXIDE 29 mmol/L (21-32); CHLORIDE 106 mmol/L (98-107); CREATININE 0.6 mg/dL (0.6-1.3); GLUCOSE 111 mg/dL (74-106); PHOSPHOROUS 3.9 mg/dL (2.5-4.9); POTASSIUM 4.3 mmol/L (3.5-5.1); TOTAL PROTEIN, SERUM 6.7 g/dL (6.4-8.2); UREA NITROGEN, BLOOD 41 mg/dL (7-18)
[2019-04-28] MEDS: HYDROGEN PEROXIDE 3% 118 ML BOTTLE TP SCH ×2 (08:21→21:14)
[2019-04-28 08:30] VITALS: BP 111/53
[2019-04-28] MEDS: LEVETIRACETAM 500 MG/5 ML LIQUID UDC JT SCH ×2 (09:33→20:54)
[2019-04-28] MEDS: NYSTATIN CREAM 30 GM TUBE TP SCH ×2 (09:35→20:56)
[2019-04-28] MEDS: METOPROLOL TARTRATE 50 MG TABLET JT SCH ×2 (09:35→21:00)
[2019-04-28] MEDS: THERAHONEY GEL 1.5 OZ TUBE TOP SCH ×2 (09:35→20:55)
[2019-04-28] MEDS: COD LIVER OIL/ZINC OXIDE OINT 113 GM TUBE TP SCH ×2 (09:35→20:55)
[2019-04-28] MEDS: ASCORBIC ACID 500 MG TABLET JT SCH ×2 (09:35→20:53)
[2019-04-28] MEDS: ACETAMINOPHEN 650 MG/20 ML UDC- SA PATIENTS-PAIN ONLY JT PRN (09:36)
[2019-04-28] MEDS: VITAL AF 1.2 1,000 ML LIQUID JT PRN (17:25)
[2019-04-28 20:22] VITALS: BP 120/59
[2019-04-28] MEDS: MULTIVIT, IRON, MIN NO. 8, FA TABLET JT SCH (20:53)
[2019-04-28] MEDS: RIVAROXABAN 10 MG TABLET JT SCH (20:53)
[2019-04-28] MEDS: ARGINAID JT SCH (20:54)
[2019-04-28] MEDS: PROTEIN SUPPLEMENT (PROSTAT) 30 ML LIQUID GT SCH (20:55)
[2019-04-29] MEDS: IPRATROPIUM BROMIDE 0.5 MG/2.5 ML NEBU NEB SCH ×4 (00:56→19:28)
[2019-04-29] MEDS: ALBUTEROL SULFATE 2.5 MG/3 ML NEBU NEB SCH ×4 (00:56→19:28)
[2019-04-29] MEDS: METOCLOPRAMIDE HCL 10 MG/10 ML UDC JT SCH ×3 (05:39→22:11)
[2019-04-29] MEDS: VITAL AF 1.2 1,000 ML LIQUID JT PRN ×2 (05:39→18:24)
[2019-04-29] MEDS: POLYVINYL ALCOHOL OPHT DROPS 15 ML BOTTLE EACHEYE SCH ×3 (05:39→22:11)
[2019-04-29] MEDS: FAMOTIDINE 20 MG TABLET JT SCH ×2 (05:39→17:38)
[2019-04-29 07:54] VITALS: BP 124/52
[2019-04-29] MEDS: LEVETIRACETAM 500 MG/5 ML LIQUID UDC JT SCH ×2 (08:43→20:17)
[2019-04-29] MEDS: ASCORBIC ACID 500 MG TABLET JT SCH ×2 (08:44→20:21)
[2019-04-29] MEDS: METOPROLOL TARTRATE 50 MG TABLET JT SCH ×2 (08:44→20:18)
[2019-04-29] MEDS: COD LIVER OIL/ZINC OXIDE OINT 113 GM TUBE TP SCH ×2 (08:45→20:21)
[2019-04-29] MEDS: NYSTATIN CREAM 30 GM TUBE TP SCH ×2 (08:45→20:22)
[2019-04-29] MEDS: THERAHONEY GEL 1.5 OZ TUBE TOP SCH ×2 (08:45→20:21)
[2019-04-29] MEDS: HYDROGEN PEROXIDE 3% 118 ML BOTTLE TP SCH ×2 (09:00→21:22)
[2019-04-29 20:06] VITALS: BP 118/63
[2019-04-29] MEDS: PROTEIN SUPPLEMENT (PROSTAT) 30 ML LIQUID GT SCH (20:16)
[2019-04-29] MEDS: RIVAROXABAN 10 MG TABLET JT SCH (20:17)
[2019-04-29] MEDS: ARGINAID JT SCH (20:19)
[2019-04-29] MEDS: MULTIVIT, IRON, MIN NO. 8, FA TABLET JT SCH (20:19)
[2019-04-30] MEDS: ALBUTEROL SULFATE 2.5 MG/3 ML NEBU NEB SCH ×4 (00:37→19:17)
[2019-04-30] MEDS: IPRATROPIUM BROMIDE 0.5 MG/2.5 ML NEBU NEB SCH ×4 (00:37→19:17)
[2019-04-30] MEDS: METOCLOPRAMIDE HCL 10 MG/10 ML UDC JT SCH ×3 (06:32→22:35)
[2019-04-30] MEDS: POLYVINYL ALCOHOL OPHT DROPS 15 ML BOTTLE EACHEYE SCH ×3 (06:32→22:35)
[2019-04-30] MEDS: FAMOTIDINE 20 MG TABLET JT SCH ×2 (06:32→17:00)
[2019-04-30] MEDS: LEVETIRACETAM 500 MG/5 ML LIQUID UDC JT SCH ×2 (08:40→20:12)
[2019-04-30] MEDS: COD LIVER OIL/ZINC OXIDE OINT 113 GM TUBE TP SCH ×3 (08:42→20:15)
[2019-04-30] MEDS: ASCORBIC ACID 500 MG TABLET JT SCH ×2 (08:42→20:14)
[2019-04-30] MEDS: THERAHONEY GEL 1.5 OZ TUBE TOP SCH ×2 (08:42→20:15)
[2019-04-30] MEDS: METOPROLOL TARTRATE 50 MG TABLET JT SCH ×2 (08:42→20:13)
[2019-04-30] MEDS: NYSTATIN CREAM 30 GM TUBE TP SCH ×2 (08:42→20:15)
[2019-04-30] MEDS: HYDROGEN PEROXIDE 3% 118 ML BOTTLE TP SCH ×2 (09:00→21:16)
[2019-04-30 11:05] VITALS: BP 147/91
[2019-04-30 20:00] VITALS: BP 122/47
[2019-04-30] MEDS: PROTEIN SUPPLEMENT (PROSTAT) 30 ML LIQUID GT SCH (20:12)
[2019-04-30] MEDS: MULTIVIT, IRON, MIN NO. 8, FA TABLET JT SCH (20:14)
[2019-04-30] MEDS: ARGINAID JT SCH (20:14)
[2019-04-30] MEDS: RIVAROXABAN 10 MG TABLET JT SCH (20:15)
[2019-04-30] MEDS: VITAL AF 1.2 1,000 ML LIQUID JT PRN (20:30)
[2019-05-01] MEDS: IPRATROPIUM BROMIDE 0.5 MG/2.5 ML NEBU NEB SCH ×4 (00:54→19:19)
[2019-05-01] MEDS: ALBUTEROL SULFATE 2.5 MG/3 ML NEBU NEB SCH ×4 (00:54→19:19)
[2019-05-01] MEDS: POLYVINYL ALCOHOL OPHT DROPS 15 ML BOTTLE EACHEYE SCH ×3 (06:26→22:06)
[2019-05-01] MEDS: FAMOTIDINE 20 MG TABLET JT SCH ×2 (06:26→17:01)
[2019-05-01] MEDS: METOCLOPRAMIDE HCL 10 MG/10 ML UDC JT SCH ×3 (06:26→22:06)
[2019-05-01] MEDS: HYDROGEN PEROXIDE 3% 118 ML BOTTLE TP SCH ×2 (07:47→21:22)
[2019-05-01] MEDS: LEVETIRACETAM 500 MG/5 ML LIQUID UDC JT SCH ×2 (08:30→21:00)
[2019-05-01] MEDS: COD LIVER OIL/ZINC OXIDE OINT 113 GM TUBE TP SCH ×4 (08:31→21:00)
[2019-05-01] MEDS: METOPROLOL TARTRATE 50 MG TABLET JT SCH ×2 (08:31→21:00)
[2019-05-01] MEDS: NYSTATIN CREAM 30 GM TUBE TP SCH ×2 (08:31→21:00)
[2019-05-01] MEDS: ASCORBIC ACID 500 MG TABLET JT SCH ×2 (08:31→21:00)
[2019-05-01] MEDS: THERAHONEY GEL 1.5 OZ TUBE TOP SCH ×2 (08:31→21:00)
[2019-05-01] MEDS: VITAL AF 1.2 1,000 ML LIQUID JT PRN ×2 (11:00→23:30)
[2019-05-01 14:37] VITALS: BP 114/47
[2019-05-01 20:55] VITALS: BP 115/52
[2019-05-01] MEDS: ARGINAID JT SCH (21:00)
[2019-05-01] MEDS: RIVAROXABAN 10 MG TABLET JT SCH (21:00)
[2019-05-01] MEDS: PROTEIN SUPPLEMENT (PROSTAT) 30 ML LIQUID GT SCH (21:00)
[2019-05-01] MEDS: MULTIVIT, IRON, MIN NO. 8, FA TABLET JT SCH (21:00)
[2019-05-02] MEDS: IPRATROPIUM BROMIDE 0.5 MG/2.5 ML NEBU NEB SCH ×4 (00:54→19:14)
[2019-05-02] MEDS: ALBUTEROL SULFATE 2.5 MG/3 ML NEBU NEB SCH ×4 (00:54→19:14)
[2019-05-02] MEDS: POLYVINYL ALCOHOL OPHT DROPS 15 ML BOTTLE EACHEYE SCH ×3 (06:25→21:10)
[2019-05-02] MEDS: FAMOTIDINE 20 MG TABLET JT SCH ×2 (06:26→18:12)
[2019-05-02] MEDS: METOCLOPRAMIDE HCL 10 MG/10 ML UDC JT SCH ×3 (06:26→21:10)
[2019-05-02] MEDS: HYDROGEN PEROXIDE 3% 118 ML BOTTLE TP SCH ×2 (08:09→19:14)
[2019-05-02] MEDS: LEVETIRACETAM 500 MG/5 ML LIQUID UDC JT SCH ×2 (08:24→20:22)
[2019-05-02] MEDS: THERAHONEY GEL 1.5 OZ TUBE TOP SCH ×2 (08:25→20:24)
[2019-05-02] MEDS: ASCORBIC ACID 500 MG TABLET JT SCH ×2 (08:25→20:22)
[2019-05-02] MEDS: METOPROLOL TARTRATE 50 MG TABLET JT SCH ×2 (08:25→20:22)
[2019-05-02] MEDS: COD LIVER OIL/ZINC OXIDE OINT 113 GM TUBE TP SCH ×4 (08:25→20:24)
[2019-05-02] MEDS: NYSTATIN CREAM 30 GM TUBE TP SCH ×2 (08:25→20:24)
[2019-05-02 10:59] VITALS: BP 114/44
[2019-05-02] MEDS: VITAL AF 1.2 1,000 ML LIQUID JT PRN (14:57)
[2019-05-02 19:55] VITALS: BP 101/62
[2019-05-02] MEDS: PROTEIN SUPPLEMENT (PROSTAT) 30 ML LIQUID GT SCH (20:22)
[2019-05-02] MEDS: ARGINAID JT SCH (20:22)
[2019-05-02] MEDS: MULTIVIT, IRON, MIN NO. 8, FA TABLET JT SCH (20:22)
[2019-05-02] MEDS: RIVAROXABAN 10 MG TABLET JT SCH (20:23)
[2019-05-03] MEDS: ALBUTEROL SULFATE 2.5 MG/3 ML NEBU NEB SCH ×4 (00:39→19:08)
[2019-05-03] MEDS: IPRATROPIUM BROMIDE 0.5 MG/2.5 ML NEBU NEB SCH ×4 (00:39→19:08)
[2019-05-03] MEDS: VITAL AF 1.2 1,000 ML LIQUID JT PRN (02:40)
[2019-05-03] MEDS: POLYVINYL ALCOHOL OPHT DROPS 15 ML BOTTLE EACHEYE SCH ×3 (05:14→21:22)
[2019-05-03] MEDS: FAMOTIDINE 20 MG TABLET JT SCH ×2 (05:14→17:18)
[2019-05-03] MEDS: METOCLOPRAMIDE HCL 10 MG/10 ML UDC JT SCH ×3 (05:14→21:22)
[2019-05-03 08:00] VITALS: BP 123/47
[2019-05-03] MEDS: LEVETIRACETAM 500 MG/5 ML LIQUID UDC JT SCH ×2 (08:18→20:23)
[2019-05-03] MEDS: ASCORBIC ACID 500 MG TABLET JT SCH ×2 (08:20→20:23)
[2019-05-03] MEDS: METOPROLOL TARTRATE 50 MG TABLET JT SCH ×2 (08:20→20:23)
[2019-05-03] MEDS: COD LIVER OIL/ZINC OXIDE OINT 113 GM TUBE TP SCH ×4 (08:20→20:24)
[2019-05-03] MEDS: THERAHONEY GEL 1.5 OZ TUBE TOP SCH ×2 (08:21→20:24)
[2019-05-03] MEDS: NYSTATIN CREAM 30 GM TUBE TP SCH ×2 (08:22→20:24)
[2019-05-03] MEDS: HYDROGEN PEROXIDE 3% 118 ML BOTTLE TP SCH ×2 (10:00→20:52)
[2019-05-03 19:50] VITALS: BP 108/66
[2019-05-03] MEDS: ARGINAID JT SCH (20:23)
[2019-05-03] MEDS: MULTIVIT, IRON, MIN NO. 8, FA TABLET JT SCH (20:23)
[2019-05-03] MEDS: PROTEIN SUPPLEMENT (PROSTAT) 30 ML LIQUID GT SCH (20:23)
[2019-05-03] MEDS: RIVAROXABAN 10 MG TABLET JT SCH (20:24)
[2019-05-04] MEDS: ALBUTEROL SULFATE 2.5 MG/3 ML NEBU NEB SCH ×4 (00:55→19:07)
[2019-05-04] MEDS: IPRATROPIUM BROMIDE 0.5 MG/2.5 ML NEBU NEB SCH ×4 (00:55→19:07)
[2019-05-04] MEDS: VITAL AF 1.2 1,000 ML LIQUID JT PRN ×2 (01:49→17:30)
[2019-05-04] MEDS: METOCLOPRAMIDE HCL 10 MG/10 ML UDC JT SCH ×3 (05:11→21:01)
[2019-05-04] MEDS: FAMOTIDINE 20 MG TABLET JT SCH ×2 (05:11→17:30)
[2019-05-04] MEDS: POLYVINYL ALCOHOL OPHT DROPS 15 ML BOTTLE EACHEYE SCH ×3 (05:11→21:01)
[2019-05-04 08:03] VITALS: BP 130/59
[2019-05-04] MEDS: LEVETIRACETAM 500 MG/5 ML LIQUID UDC JT SCH ×2 (08:38→20:24)
[2019-05-04] MEDS: ASCORBIC ACID 500 MG TABLET JT SCH ×2 (08:39→20:24)
[2019-05-04] MEDS: COD LIVER OIL/ZINC OXIDE OINT 113 GM TUBE TP SCH ×4 (08:39→20:27)
[2019-05-04] MEDS: THERAHONEY GEL 1.5 OZ TUBE TOP SCH ×2 (08:39→20:26)
[2019-05-04] MEDS: METOPROLOL TARTRATE 50 MG TABLET JT SCH ×2 (08:39→20:24)
[2019-05-04] MEDS: NYSTATIN CREAM 30 GM TUBE TP SCH ×2 (08:40→20:27)
[2019-05-04] MEDS: HYDROGEN PEROXIDE 3% 118 ML BOTTLE TP SCH ×2 (09:00→21:13)
[2019-05-04] MEDS: MULTIVIT, IRON, MIN NO. 8, FA TABLET JT SCH (20:24)
[2019-05-04] MEDS: ARGINAID JT SCH (20:24)
[2019-05-04] MEDS: PROTEIN SUPPLEMENT (PROSTAT) 30 ML LIQUID GT SCH (20:24)
[2019-05-04] MEDS: RIVAROXABAN 10 MG TABLET JT SCH (20:26)
[2019-05-04 20:32] VITALS: BP 134/60
[2019-05-05] MEDS: ALBUTEROL SULFATE 2.5 MG/3 ML NEBU NEB SCH ×4 (00:55→19:13)
[2019-05-05] MEDS: IPRATROPIUM BROMIDE 0.5 MG/2.5 ML NEBU NEB SCH ×4 (00:55→19:13)
[2019-05-05] MEDS: VITAL AF 1.2 1,000 ML LIQUID JT PRN (03:51)
[2019-05-05] MEDS: METOCLOPRAMIDE HCL 10 MG/10 ML UDC JT SCH ×3 (05:08→21:50)
[2019-05-05] MEDS: POLYVINYL ALCOHOL OPHT DROPS 15 ML BOTTLE EACHEYE SCH ×3 (05:08→21:50)
[2019-05-05] MEDS: FAMOTIDINE 20 MG TABLET JT SCH ×2 (05:08→17:48)
[2019-05-05 08:04] VITALS: BP 108/51
[2019-05-05] MEDS: LEVETIRACETAM 500 MG/5 ML LIQUID UDC JT SCH ×2 (09:05→20:01)
[2019-05-05] MEDS: ASCORBIC ACID 500 MG TABLET JT SCH ×2 (09:06→20:02)
[2019-05-05] MEDS: NYSTATIN CREAM 30 GM TUBE TP SCH ×2 (09:06→20:03)
[2019-05-05] MEDS: THERAHONEY GEL 1.5 OZ TUBE TOP SCH ×2 (09:06→20:03)
[2019-05-05] MEDS: COD LIVER OIL/ZINC OXIDE OINT 113 GM TUBE TP SCH ×4 (09:06→20:03)
[2019-05-05] MEDS: METOPROLOL TARTRATE 50 MG TABLET JT SCH ×2 (09:06→20:01)
[2019-05-05] MEDS: HYDROGEN PEROXIDE 3% 118 ML BOTTLE TP SCH ×2 (09:50→19:13)
[2019-05-05] MEDS: PROTEIN SUPPLEMENT (PROSTAT) 30 ML LIQUID GT SCH (20:01)
[2019-05-05] MEDS: ARGINAID JT SCH (20:02)
[2019-05-05] MEDS: MULTIVIT, IRON, MIN NO. 8, FA TABLET JT SCH (20:02)
[2019-05-05] MEDS: RIVAROXABAN 10 MG TABLET JT SCH (20:03)
[2019-05-05 21:14] VITALS: BP 117/67
[2019-05-06] MEDS: ALBUTEROL SULFATE 2.5 MG/3 ML NEBU NEB SCH ×4 (00:43→19:08)
[2019-05-06] MEDS: IPRATROPIUM BROMIDE 0.5 MG/2.5 ML NEBU NEB SCH ×4 (00:43→19:08)
[2019-05-06] MEDS: VITAL AF 1.2 1,000 ML LIQUID JT PRN (03:20)
[2019-05-06] MEDS: POLYVINYL ALCOHOL OPHT DROPS 15 ML BOTTLE EACHEYE SCH ×3 (05:35→22:00)
[2019-05-06] MEDS: FAMOTIDINE 20 MG TABLET JT SCH ×2 (05:35→17:29)
[2019-05-06] MEDS: METOCLOPRAMIDE HCL 10 MG/10 ML UDC JT SCH ×3 (05:35→22:00)
[2019-05-06 08:05] VITALS: BP 113/49
[2019-05-06] MEDS: LEVETIRACETAM 500 MG/5 ML LIQUID UDC JT SCH ×2 (08:28→20:35)
[2019-05-06] MEDS: METOPROLOL TARTRATE 50 MG TABLET JT SCH ×2 (08:28→20:37)
[2019-05-06] MEDS: ASCORBIC ACID 500 MG TABLET JT SCH ×2 (08:28→20:39)
[2019-05-06] MEDS: THERAHONEY GEL 1.5 OZ TUBE TOP SCH (08:29)
[2019-05-06] MEDS: COD LIVER OIL/ZINC OXIDE OINT 113 GM TUBE TP SCH ×4 (08:29→20:40)
[2019-05-06] MEDS: NYSTATIN CREAM 30 GM TUBE TP SCH ×2 (08:29→20:40)
[2019-05-06] MEDS: HYDROGEN PEROXIDE 3% 118 ML BOTTLE TP SCH ×2 (09:15→21:04)
[2019-05-06] MEDS: PROTEIN SUPPLEMENT (PROSTAT) 30 ML LIQUID GT SCH (20:35)
[2019-05-06] MEDS: MULTIVIT, IRON, MIN NO. 8, FA TABLET JT SCH (20:38)
[2019-05-06] MEDS: ARGINAID JT SCH (20:38)
[2019-05-06] MEDS: RIVAROXABAN 10 MG TABLET JT SCH (20:40)
[2019-05-06 20:51] VITALS: BP 118/58
[2019-05-07] MEDS: VITAL AF 1.2 1,000 ML LIQUID JT PRN (00:41)
[2019-05-07] MEDS: IPRATROPIUM BROMIDE 0.5 MG/2.5 ML NEBU NEB SCH ×4 (00:54→18:55)
[2019-05-07] MEDS: ALBUTEROL SULFATE 2.5 MG/3 ML NEBU NEB SCH ×4 (00:54→18:55)
[2019-05-07] MEDS: FAMOTIDINE 20 MG TABLET JT SCH ×2 (06:11→17:08)
[2019-05-07] MEDS: POLYVINYL ALCOHOL OPHT DROPS 15 ML BOTTLE EACHEYE SCH ×3 (06:11→22:18)
[2019-05-07] MEDS: METOCLOPRAMIDE HCL 10 MG/10 ML UDC JT SCH ×3 (06:12→22:18)
[2019-05-07 08:05] VITALS: BP 119/60
[2019-05-07] MEDS: HYDROGEN PEROXIDE 3% 118 ML BOTTLE TP SCH ×2 (09:00→18:55)
[2019-05-07] MEDS: LEVETIRACETAM 500 MG/5 ML LIQUID UDC JT SCH ×2 (09:03→20:06)
[2019-05-07] MEDS: METOPROLOL TARTRATE 50 MG TABLET JT SCH ×2 (09:04→20:07)
[2019-05-07] MEDS: COD LIVER OIL/ZINC OXIDE OINT 113 GM TUBE TP SCH ×4 (09:04→20:10)
[2019-05-07] MEDS: NYSTATIN CREAM 30 GM TUBE TP SCH ×2 (09:04→20:11)
[2019-05-07] MEDS: ASCORBIC ACID 500 MG TABLET JT SCH ×2 (09:04→20:09)
[2019-05-07 20:04] VITALS: BP 115/61
[2019-05-07] MEDS: PROTEIN SUPPLEMENT (PROSTAT) 30 ML LIQUID GT SCH (20:06)
[2019-05-07] MEDS: MULTIVIT, IRON, MIN NO. 8, FA TABLET JT SCH (20:08)
[2019-05-07] MEDS: ARGINAID JT SCH (20:08)
[2019-05-07] MEDS: RIVAROXABAN 10 MG TABLET JT SCH (20:10)
[2019-05-08] MEDS: IPRATROPIUM BROMIDE 0.5 MG/2.5 ML NEBU NEB SCH ×4 (00:39→18:57)
[2019-05-08] MEDS: ALBUTEROL SULFATE 2.5 MG/3 ML NEBU NEB SCH ×4 (00:40→18:57)
[2019-05-08] MEDS: VITAL AF 1.2 1,000 ML LIQUID JT PRN (03:23)
[2019-05-08] MEDS: METOCLOPRAMIDE HCL 10 MG/10 ML UDC JT SCH ×3 (06:07→22:15)
[2019-05-08] MEDS: FAMOTIDINE 20 MG TABLET JT SCH ×2 (06:07→17:11)
[2019-05-08] MEDS: POLYVINYL ALCOHOL OPHT DROPS 15 ML BOTTLE EACHEYE SCH ×3 (06:07→22:15)
[2019-05-08] MEDS: COD LIVER OIL/ZINC OXIDE OINT 113 GM TUBE TP SCH ×4 (08:29→20:36)
[2019-05-08] MEDS: LEVETIRACETAM 500 MG/5 ML LIQUID UDC JT SCH ×2 (08:29→20:34)
[2019-05-08] MEDS: METOPROLOL TARTRATE 50 MG TABLET JT SCH ×2 (08:29→20:34)
[2019-05-08] MEDS: ASCORBIC ACID 500 MG TABLET JT SCH ×2 (08:29→20:35)
[2019-05-08] MEDS: NYSTATIN CREAM 30 GM TUBE TP SCH ×2 (08:30→20:36)
[2019-05-08] MEDS: HYDROGEN PEROXIDE 3% 118 ML BOTTLE TP SCH ×2 (08:50→18:57)
[2019-05-08 10:50] VITALS: BP 131/84
[2019-05-08] MEDS: PROTEIN SUPPLEMENT (PROSTAT) 30 ML LIQUID GT SCH (20:34)
[2019-05-08] MEDS: ARGINAID JT SCH (20:35)
[2019-05-08] MEDS: MULTIVIT, IRON, MIN NO. 8, FA TABLET JT SCH (20:35)
[2019-05-08] MEDS: RIVAROXABAN 10 MG TABLET JT SCH (20:35)
[2019-05-08 21:43] VITALS: BP 118/59
[2019-05-09] MEDS: IPRATROPIUM BROMIDE 0.5 MG/2.5 ML NEBU NEB SCH ×4 (00:47→20:08)
[2019-05-09] MEDS: ALBUTEROL SULFATE 2.5 MG/3 ML NEBU NEB SCH ×4 (00:47→20:08)
[2019-05-09] MEDS: FAMOTIDINE 20 MG TABLET JT SCH ×2 (05:39→17:48)
[2019-05-09] MEDS: METOCLOPRAMIDE HCL 10 MG/10 ML UDC JT SCH ×3 (05:39→22:00)
[2019-05-09] MEDS: POLYVINYL ALCOHOL OPHT DROPS 15 ML BOTTLE EACHEYE SCH ×3 (05:39→22:00)
[2019-05-09] MEDS: HYDROGEN PEROXIDE 3% 118 ML BOTTLE TP SCH ×2 (09:00→21:16)
[2019-05-09] MEDS: LEVETIRACETAM 500 MG/5 ML LIQUID UDC JT SCH ×2 (09:29→20:09)
[2019-05-09] MEDS: METOPROLOL TARTRATE 50 MG TABLET JT SCH ×2 (09:30→22:00)
[2019-05-09] MEDS: NYSTATIN CREAM 30 GM TUBE TP SCH ×2 (09:30→20:10)
[2019-05-09] MEDS: ASCORBIC ACID 500 MG TABLET JT SCH ×2 (09:30→20:10)
[2019-05-09] MEDS: COD LIVER OIL/ZINC OXIDE OINT 113 GM TUBE TP SCH ×4 (09:30→20:10)
[2019-05-09] MEDS: VITAL AF 1.2 1,000 ML LIQUID JT PRN (09:33)
[2019-05-09 10:33] VITALS: BP 109/42
[2019-05-09] MEDS: PROTEIN SUPPLEMENT (PROSTAT) 30 ML LIQUID GT SCH (20:09)
[2019-05-09] MEDS: ARGINAID JT SCH (20:09)
[2019-05-09] MEDS: MULTIVIT, IRON, MIN NO. 8, FA TABLET JT SCH (20:10)
[2019-05-09] MEDS: RIVAROXABAN 10 MG TABLET JT SCH (20:58)
[2019-05-09 22:26] VITALS: BP 121/54
[2019-05-10] MEDS: ALBUTEROL SULFATE 2.5 MG/3 ML NEBU NEB SCH ×4 (01:50→19:41)
[2019-05-10] MEDS: IPRATROPIUM BROMIDE 0.5 MG/2.5 ML NEBU NEB SCH ×4 (01:50→19:41)
[2019-05-10] MEDS: FAMOTIDINE 20 MG TABLET JT SCH ×2 (05:58→17:21)
[2019-05-10] MEDS: METOCLOPRAMIDE HCL 10 MG/10 ML UDC JT SCH ×3 (05:58→22:00)
[2019-05-10] MEDS: POLYVINYL ALCOHOL OPHT DROPS 15 ML BOTTLE EACHEYE SCH ×3 (05:58→22:00)
[2019-05-10] MEDS: METOPROLOL TARTRATE 50 MG TABLET JT SCH ×2 (08:59→20:48)
[2019-05-10] MEDS: LEVETIRACETAM 500 MG/5 ML LIQUID UDC JT SCH ×2 (08:59→20:45)
[2019-05-10] MEDS: ASCORBIC ACID 500 MG TABLET JT SCH ×2 (08:59→20:49)
[2019-05-10] MEDS: HYDROGEN PEROXIDE 3% 118 ML BOTTLE TP SCH ×2 (09:00→21:48)
[2019-05-10] MEDS: NYSTATIN CREAM 30 GM TUBE TP SCH ×2 (09:00→20:52)
[2019-05-10] MEDS: COD LIVER OIL/ZINC OXIDE OINT 113 GM TUBE TP SCH ×4 (09:00→20:52)
[2019-05-10 11:05] VITALS: BP 120/82
[2019-05-10] MEDS: VITAL AF 1.2 1,000 ML LIQUID JT PRN (13:01)
[2019-05-10] MEDS: PROTEIN SUPPLEMENT (PROSTAT) 30 ML LIQUID GT SCH (20:45)
[2019-05-10] MEDS: ARGINAID JT SCH (20:48)
[2019-05-10] MEDS: MULTIVIT, IRON, MIN NO. 8, FA TABLET JT SCH (20:48)
[2019-05-10] MEDS: RIVAROXABAN 10 MG TABLET JT SCH (20:50)
[2019-05-10 22:03] VITALS: BP 114/47
[2019-05-11] MEDS: VITAL AF 1.2 1,000 ML LIQUID JT PRN ×2 (01:51→16:50)
[2019-05-11] MEDS: ALBUTEROL SULFATE 2.5 MG/3 ML NEBU NEB SCH ×4 (02:10→19:28)
[2019-05-11] MEDS: IPRATROPIUM BROMIDE 0.5 MG/2.5 ML NEBU NEB SCH ×4 (02:10→19:28)
[2019-05-11] MEDS: FAMOTIDINE 20 MG TABLET JT SCH ×2 (05:57→17:17)
[2019-05-11] MEDS: POLYVINYL ALCOHOL OPHT DROPS 15 ML BOTTLE EACHEYE SCH ×3 (05:57→21:50)
[2019-05-11] MEDS: METOCLOPRAMIDE HCL 10 MG/10 ML UDC JT SCH ×3 (05:57→21:50)
[2019-05-11] MEDS: LEVETIRACETAM 500 MG/5 ML LIQUID UDC JT SCH ×2 (08:36→21:49)
[2019-05-11] MEDS: ASCORBIC ACID 500 MG TABLET JT SCH ×2 (08:37→21:49)
[2019-05-11] MEDS: METOPROLOL TARTRATE 50 MG TABLET JT SCH ×2 (08:37→21:49)
[2019-05-11] MEDS: NYSTATIN CREAM 30 GM TUBE TP SCH ×2 (08:38→21:50)
[2019-05-11] MEDS: COD LIVER OIL/ZINC OXIDE OINT 113 GM TUBE TP SCH ×4 (08:38→21:50)
[2019-05-11] MEDS: HYDROGEN PEROXIDE 3% 118 ML BOTTLE TP SCH ×2 (09:00→21:26)
[2019-05-11 11:07] VITALS: BP 116/68
[2019-05-11] MEDS: ARGINAID JT SCH (21:49)
[2019-05-11] MEDS: MULTIVIT, IRON, MIN NO. 8, FA TABLET JT SCH (21:49)
[2019-05-11] MEDS: PROTEIN SUPPLEMENT (PROSTAT) 30 ML LIQUID GT SCH (21:49)
[2019-05-11] MEDS: RIVAROXABAN 10 MG TABLET JT SCH (21:58)
[2019-05-11 22:15] VITALS: BP 121/65
[2019-05-12] MEDS: IPRATROPIUM BROMIDE 0.5 MG/2.5 ML NEBU NEB SCH ×4 (00:49→19:21)
[2019-05-12] MEDS: ALBUTEROL SULFATE 2.5 MG/3 ML NEBU NEB SCH ×4 (00:49→19:21)
[2019-05-12] MEDS: POLYVINYL ALCOHOL OPHT DROPS 15 ML BOTTLE EACHEYE SCH ×3 (05:23→21:53)
[2019-05-12] MEDS: FAMOTIDINE 20 MG TABLET JT SCH ×2 (05:23→17:29)
[2019-05-12] MEDS: METOCLOPRAMIDE HCL 10 MG/10 ML UDC JT SCH ×3 (05:23→21:53)
[2019-05-12] MEDS: VITAL AF 1.2 1,000 ML LIQUID JT PRN ×2 (06:19→17:29)
[2019-05-12] MEDS: HYDROGEN PEROXIDE 3% 118 ML BOTTLE TP SCH ×2 (08:12→21:17)
[2019-05-12] MEDS: LEVETIRACETAM 500 MG/5 ML LIQUID UDC JT SCH ×2 (09:26→20:13)
[2019-05-12] MEDS: ASCORBIC ACID 500 MG TABLET JT SCH ×2 (09:36→20:16)
[2019-05-12] MEDS: METOPROLOL TARTRATE 50 MG TABLET JT SCH ×2 (09:36→20:14)
[2019-05-12] MEDS: NYSTATIN CREAM 30 GM TUBE TP SCH ×2 (09:36→20:16)
[2019-05-12] MEDS: COD LIVER OIL/ZINC OXIDE OINT 113 GM TUBE TP SCH ×4 (09:36→20:16)
[2019-05-12 11:08] VITALS: BP 126/43
[2019-05-12] MEDS: PROTEIN SUPPLEMENT (PROSTAT) 30 ML LIQUID GT SCH (20:12)
[2019-05-12] MEDS: ARGINAID JT SCH (20:14)
[2019-05-12] MEDS: MULTIVIT, IRON, MIN NO. 8, FA TABLET JT SCH (20:15)
[2019-05-12] MEDS: RIVAROXABAN 10 MG TABLET JT SCH (21:53)
[2019-05-12 22:12] VITALS: BP 140/78
[2019-05-13] MEDS: IPRATROPIUM BROMIDE 0.5 MG/2.5 ML NEBU NEB SCH ×4 (00:33→19:41)
[2019-05-13] MEDS: ALBUTEROL SULFATE 2.5 MG/3 ML NEBU NEB SCH ×4 (00:33→19:41)
[2019-05-13] MEDS: FAMOTIDINE 20 MG TABLET JT SCH ×2 (06:47→17:33)
[2019-05-13] MEDS: METOCLOPRAMIDE HCL 10 MG/10 ML UDC JT SCH ×3 (06:47→21:42)
[2019-05-13] MEDS: POLYVINYL ALCOHOL OPHT DROPS 15 ML BOTTLE EACHEYE SCH ×3 (06:47→21:41)
[2019-05-13 08:30] VITALS: BP 107/41
[2019-05-13] MEDS: HYDROGEN PEROXIDE 3% 118 ML BOTTLE TP SCH ×2 (08:33→21:14)
[2019-05-13] MEDS: METOPROLOL TARTRATE 50 MG TABLET JT SCH ×2 (09:04→21:38)
[2019-05-13] MEDS: COD LIVER OIL/ZINC OXIDE OINT 113 GM TUBE TP SCH ×4 (09:04→21:41)
[2019-05-13] MEDS: ASCORBIC ACID 500 MG TABLET JT SCH ×2 (09:04→21:38)
[2019-05-13] MEDS: LEVETIRACETAM 500 MG/5 ML LIQUID UDC JT SCH ×2 (09:04→21:36)
[2019-05-13] MEDS: NYSTATIN CREAM 30 GM TUBE TP SCH ×2 (09:05→21:41)
[2019-05-13 20:27] VITALS: BP 113/62
[2019-05-13] MEDS: PROTEIN SUPPLEMENT (PROSTAT) 30 ML LIQUID GT SCH (21:36)
[2019-05-13] MEDS: ARGINAID JT SCH (21:38)
[2019-05-13] MEDS: MULTIVIT, IRON, MIN NO. 8, FA TABLET JT SCH (21:38)
[2019-05-13] MEDS: RIVAROXABAN 10 MG TABLET JT SCH (21:40)
[2019-05-13] MEDS: VITAL AF 1.2 1,000 ML LIQUID JT PRN (23:10)
[2019-05-14] MEDS: ALBUTEROL SULFATE 2.5 MG/3 ML NEBU NEB SCH ×4 (01:15→20:07)
[2019-05-14] MEDS: IPRATROPIUM BROMIDE 0.5 MG/2.5 ML NEBU NEB SCH ×4 (01:15→20:07)
[2019-05-14] MEDS: FAMOTIDINE 20 MG TABLET JT SCH ×2 (06:12→18:00)
[2019-05-14] MEDS: POLYVINYL ALCOHOL OPHT DROPS 15 ML BOTTLE EACHEYE SCH ×3 (06:12→21:34)
[2019-05-14] MEDS: METOCLOPRAMIDE HCL 10 MG/10 ML UDC JT SCH ×3 (06:12→21:34)
[2019-05-14] MEDS: LEVETIRACETAM 500 MG/5 ML LIQUID UDC JT SCH ×2 (08:15→21:25)
[2019-05-14] MEDS: METOPROLOL TARTRATE 50 MG TABLET JT SCH ×2 (08:16→21:30)
[2019-05-14] MEDS: NYSTATIN CREAM 30 GM TUBE TP SCH ×2 (08:16→21:34)
[2019-05-14] MEDS: ASCORBIC ACID 500 MG TABLET JT SCH ×2 (08:16→21:32)
[2019-05-14] MEDS: COD LIVER OIL/ZINC OXIDE OINT 113 GM TUBE TP SCH ×4 (08:16→21:34)
[2019-05-14 08:50] LABS: BASOPHILS % (AUTO) 0.4 % (0.0-2.0); EOSINOPHILS % (AUTO) 0.2 % (0.0-7.0); HEMATOCRIT 35.2 % (36.7-47.1); HEMOGLOBIN 11.8 g/dL (12.5-16.3); LYMPHOCYTES # (AUTO) 1.1 K/uL (20.0-40.0); LYMPHOCYTES % (AUTO) 17.9 % (20.5-51.5); MEAN CORPUSCULAR HEMOGLOBIN 28.3 uug (23.8-33.4); MEAN CORPUSCULAR HGB CONC 33 g/dL (32.5-36.3); MEAN CORPUSCULAR VOLUME 84.6 fL (73.0-96.2); MONOCYTES # (AUTO) 0.5 K/uL (2.0-10.0); MONOCYTES % (AUTO) 7.1 % (0.0-11.0); NEUTROPHILS # (AUTO) 4.7 K/uL (1.8-8.9); NEUTROPHILS % (AUTO) 74.4 % (38.5-71.5); PLATELET COUNT (AUTO) 120 K/uL (152-348); RED BLOOD CELL COUNT(AUTO) 4.16 MIL/uL (4.06-5.63); WHITE BLOOD COUNT (AUTO) 6.4 K/uL (3.6-10.2)
[2019-05-14] MEDS: HYDROGEN PEROXIDE 3% 118 ML BOTTLE TP SCH ×2 (09:00→21:52)
[2019-05-14 09:10] LABS: CREATININE 0.7 mg/dL (0.6-1.3); MAGNESIUM 1.8 mg/dL (1.8-2.4); PHOSPHOROUS 3.8 mg/dL (2.5-4.9); POTASSIUM 4.2 mmol/L (3.5-5.1); TOTAL PROTEIN, SERUM 6.8 g/dL (6.4-8.2)
[2019-05-14 11:24] VITALS: BP 124/79
[2019-05-14] MEDS: VITAL AF 1.2 1,000 ML LIQUID JT PRN (18:00)
[2019-05-14 20:48] VITALS: BP 113/51
[2019-05-14] MEDS: PROTEIN SUPPLEMENT (PROSTAT) 30 ML LIQUID GT SCH (21:25)
[2019-05-14] MEDS: ARGINAID JT SCH (21:31)
[2019-05-14] MEDS: MULTIVIT, IRON, MIN NO. 8, FA TABLET JT SCH (21:31)
[2019-05-14] MEDS: RIVAROXABAN 10 MG TABLET JT SCH (21:33)
[2019-05-15] MEDS: ALBUTEROL SULFATE 2.5 MG/3 ML NEBU NEB SCH ×4 (00:52→20:02)
[2019-05-15] MEDS: IPRATROPIUM BROMIDE 0.5 MG/2.5 ML NEBU NEB SCH ×4 (00:52→20:02)
[2019-05-15] MEDS: FAMOTIDINE 20 MG TABLET JT SCH ×2 (05:22→17:09)
[2019-05-15] MEDS: METOCLOPRAMIDE HCL 10 MG/10 ML UDC JT SCH ×3 (05:22→22:27)
[2019-05-15] MEDS: POLYVINYL ALCOHOL OPHT DROPS 15 ML BOTTLE EACHEYE SCH ×3 (05:22→22:27)
[2019-05-15] MEDS: HYDROGEN PEROXIDE 3% 118 ML BOTTLE TP SCH ×2 (07:48→20:02)
[2019-05-15] MEDS: LEVETIRACETAM 500 MG/5 ML LIQUID UDC JT SCH ×2 (09:12→20:46)
[2019-05-15] MEDS: METOPROLOL TARTRATE 50 MG TABLET JT SCH ×2 (09:13→20:47)
[2019-05-15] MEDS: COD LIVER OIL/ZINC OXIDE OINT 113 GM TUBE TP SCH ×4 (09:14→20:48)
[2019-05-15] MEDS: NYSTATIN CREAM 30 GM TUBE TP SCH ×2 (09:14→20:48)
[2019-05-15] MEDS: ASCORBIC ACID 500 MG TABLET JT SCH ×2 (09:14→20:47)
[2019-05-15] MEDS: VITAL AF 1.2 1,000 ML LIQUID JT PRN (09:31)
[2019-05-15 10:36] VITALS: BP 112/51
[2019-05-15 20:46] VITALS: BP 108/64
[2019-05-15] MEDS: PROTEIN SUPPLEMENT (PROSTAT) 30 ML LIQUID GT SCH (20:46)
[2019-05-15] MEDS: MULTIVIT, IRON, MIN NO. 8, FA TABLET JT SCH (20:47)
[2019-05-15] MEDS: ARGINAID JT SCH (20:47)
[2019-05-15] MEDS: RIVAROXABAN 10 MG TABLET JT SCH (20:48)
[2019-05-16] MEDS: VITAL AF 1.2 1,000 ML LIQUID JT PRN ×3 (00:07→23:35)
[2019-05-16] MEDS: ALBUTEROL SULFATE 2.5 MG/3 ML NEBU NEB SCH ×4 (00:47→21:10)
[2019-05-16] MEDS: IPRATROPIUM BROMIDE 0.5 MG/2.5 ML NEBU NEB SCH ×4 (00:47→21:10)
[2019-05-16] MEDS: FAMOTIDINE 20 MG TABLET JT SCH ×2 (06:08→17:39)
[2019-05-16] MEDS: METOCLOPRAMIDE HCL 10 MG/10 ML UDC JT SCH ×3 (06:08→21:02)
[2019-05-16] MEDS: POLYVINYL ALCOHOL OPHT DROPS 15 ML BOTTLE EACHEYE SCH ×3 (06:08→21:02)
[2019-05-16] MEDS: LEVETIRACETAM 500 MG/5 ML LIQUID UDC JT SCH ×2 (08:48→20:24)
[2019-05-16] MEDS: METOPROLOL TARTRATE 50 MG TABLET JT SCH ×2 (08:49→20:25)
[2019-05-16] MEDS: COD LIVER OIL/ZINC OXIDE OINT 113 GM TUBE TP SCH ×4 (08:49→20:25)
[2019-05-16] MEDS: ASCORBIC ACID 500 MG TABLET JT SCH ×2 (08:49→20:25)
[2019-05-16] MEDS: NYSTATIN CREAM 30 GM TUBE TP SCH ×2 (08:50→20:26)
[2019-05-16] MEDS: HYDROGEN PEROXIDE 3% 118 ML BOTTLE TP SCH ×2 (09:00→21:00)
[2019-05-16 10:44] VITALS: BP 108/40
[2019-05-16] MEDS: PROTEIN SUPPLEMENT (PROSTAT) 30 ML LIQUID GT SCH (20:24)
[2019-05-16] MEDS: ARGINAID JT SCH (20:25)
[2019-05-16] MEDS: RIVAROXABAN 10 MG TABLET JT SCH (20:25)
[2019-05-16] MEDS: MULTIVIT, IRON, MIN NO. 8, FA TABLET JT SCH (20:25)
[2019-05-16 20:46] VITALS: BP 103/72
[2019-05-17] MEDS: IPRATROPIUM BROMIDE 0.5 MG/2.5 ML NEBU NEB SCH ×4 (01:23→20:17)
[2019-05-17] MEDS: ALBUTEROL SULFATE 2.5 MG/3 ML NEBU NEB SCH ×4 (01:23→20:17)
[2019-05-17] MEDS: FAMOTIDINE 20 MG TABLET JT SCH ×2 (05:42→17:45)
[2019-05-17] MEDS: METOCLOPRAMIDE HCL 10 MG/10 ML UDC JT SCH ×3 (05:42→21:06)
[2019-05-17] MEDS: POLYVINYL ALCOHOL OPHT DROPS 15 ML BOTTLE EACHEYE SCH ×3 (05:42→21:06)
[2019-05-17] MEDS: LEVETIRACETAM 500 MG/5 ML LIQUID UDC JT SCH ×2 (09:00→20:24)
[2019-05-17] MEDS: ASCORBIC ACID 500 MG TABLET JT SCH ×2 (09:00→20:24)
[2019-05-17] MEDS: METOPROLOL TARTRATE 50 MG TABLET JT SCH ×2 (09:00→20:24)
[2019-05-17] MEDS: COD LIVER OIL/ZINC OXIDE OINT 113 GM TUBE TP SCH ×4 (09:01→20:25)
[2019-05-17] MEDS: NYSTATIN CREAM 30 GM TUBE TP SCH ×2 (09:01→20:25)
[2019-05-17] MEDS: HYDROGEN PEROXIDE 3% 118 ML BOTTLE TP SCH ×2 (09:18→21:00)
[2019-05-17 11:54] VITALS: BP 129/62
[2019-05-17] MEDS: VITAL AF 1.2 1,000 ML LIQUID JT PRN (13:20)
[2019-05-17 20:00] VITALS: BP 115/42
[2019-05-17] MEDS: RIVAROXABAN 10 MG TABLET JT SCH (20:16)
[2019-05-17] MEDS: ARGININE/GLUTAMINE/CALCIUM BMB 1 EACH POWD.PACK JT SCH (20:24)
[2019-05-17] MEDS: MULTIVIT, IRON, MIN NO. 8, FA TABLET JT SCH (20:24)
[2019-05-17] MEDS: PROTEIN SUPPLEMENT (PROSTAT) 30 ML LIQUID GT SCH (20:24)
[2019-05-18] MEDS: ALBUTEROL SULFATE 2.5 MG/3 ML NEBU NEB SCH ×4 (01:48→20:05)
[2019-05-18] MEDS: IPRATROPIUM BROMIDE 0.5 MG/2.5 ML NEBU NEB SCH ×4 (01:48→20:05)
[2019-05-18] MEDS: VITAL AF 1.2 1,000 ML LIQUID JT PRN ×2 (01:54→17:47)
[2019-05-18] MEDS: METOCLOPRAMIDE HCL 10 MG/10 ML UDC JT SCH ×3 (05:30→21:22)
[2019-05-18] MEDS: POLYVINYL ALCOHOL OPHT DROPS 15 ML BOTTLE EACHEYE SCH ×3 (05:30→21:22)
[2019-05-18] MEDS: FAMOTIDINE 20 MG TABLET JT SCH ×2 (05:30→17:46)
[2019-05-18] MEDS: LEVETIRACETAM 500 MG/5 ML LIQUID UDC JT SCH ×2 (08:46→21:18)
[2019-05-18] MEDS: METOPROLOL TARTRATE 50 MG TABLET JT SCH ×2 (08:47→21:19)
[2019-05-18] MEDS: ASCORBIC ACID 500 MG TABLET JT SCH ×2 (08:47→21:21)
[2019-05-18] MEDS: COD LIVER OIL/ZINC OXIDE OINT 113 GM TUBE TP SCH ×4 (08:49→21:22)
[2019-05-18] MEDS: NYSTATIN CREAM 30 GM TUBE TP SCH ×2 (08:49→21:22)
[2019-05-18] MEDS: HYDROGEN PEROXIDE 3% 118 ML BOTTLE TP SCH ×2 (09:25→21:22)
[2019-05-18] MEDS: PROTEIN SUPPLEMENT (PROSTAT) 30 ML LIQUID GT SCH (21:18)
[2019-05-18] MEDS: ARGININE/GLUTAMINE/CALCIUM BMB 1 EACH POWD.PACK JT SCH (21:18)
[2019-05-18] MEDS: RIVAROXABAN 10 MG TABLET JT SCH (21:20)
[2019-05-18] MEDS: MULTIVIT, IRON, MIN NO. 8, FA TABLET JT SCH (21:21)
[2019-05-18 23:00] VITALS: BP 116/48
[2019-05-19] MEDS: ALBUTEROL SULFATE 2.5 MG/3 ML NEBU NEB SCH ×4 (01:09→19:44)
[2019-05-19] MEDS: IPRATROPIUM BROMIDE 0.5 MG/2.5 ML NEBU NEB SCH ×4 (01:09→19:44)
[2019-05-19] MEDS: VITAL AF 1.2 1,000 ML LIQUID JT PRN (04:47)
[2019-05-19] MEDS: FAMOTIDINE 20 MG TABLET JT SCH ×2 (05:06→17:21)
[2019-05-19] MEDS: POLYVINYL ALCOHOL OPHT DROPS 15 ML BOTTLE EACHEYE SCH ×3 (05:06→21:29)
[2019-05-19] MEDS: METOCLOPRAMIDE HCL 10 MG/10 ML UDC JT SCH ×3 (05:06→21:29)
[2019-05-19] MEDS: LEVETIRACETAM 500 MG/5 ML LIQUID UDC JT SCH ×2 (08:27→20:43)
[2019-05-19] MEDS: NYSTATIN CREAM 30 GM TUBE TP SCH ×2 (08:32→20:45)
[2019-05-19] MEDS: METOPROLOL TARTRATE 50 MG TABLET JT SCH ×2 (08:32→20:47)
[2019-05-19] MEDS: ASCORBIC ACID 500 MG TABLET JT SCH ×2 (08:32→20:44)
[2019-05-19] MEDS: COD LIVER OIL/ZINC OXIDE OINT 113 GM TUBE TP SCH ×4 (08:32→20:45)
[2019-05-19] MEDS: HYDROGEN PEROXIDE 3% 118 ML BOTTLE TP SCH ×2 (09:30→19:45)
[2019-05-19 19:50] VITALS: BP 112/53
[2019-05-19] MEDS: ARGININE/GLUTAMINE/CALCIUM BMB 1 EACH POWD.PACK JT SCH (20:43)
[2019-05-19] MEDS: PROTEIN SUPPLEMENT (PROSTAT) 30 ML LIQUID GT SCH (20:43)
[2019-05-19] MEDS: RIVAROXABAN 10 MG TABLET JT SCH (20:44)
[2019-05-19] MEDS: MULTIVIT, IRON, MIN NO. 8, FA TABLET JT SCH (20:47)
[2019-05-20] MEDS: IPRATROPIUM BROMIDE 0.5 MG/2.5 ML NEBU NEB SCH ×4 (01:15→19:11)
[2019-05-20] MEDS: ALBUTEROL SULFATE 2.5 MG/3 ML NEBU NEB SCH ×4 (01:15→19:11)
[2019-05-20] MEDS: POLYVINYL ALCOHOL OPHT DROPS 15 ML BOTTLE EACHEYE SCH ×3 (06:07→21:08)
[2019-05-20] MEDS: METOCLOPRAMIDE HCL 10 MG/10 ML UDC JT SCH ×3 (06:07→21:08)
[2019-05-20] MEDS: FAMOTIDINE 20 MG TABLET JT SCH ×2 (06:07→17:22)
[2019-05-20] MEDS: LEVETIRACETAM 500 MG/5 ML LIQUID UDC JT SCH ×2 (08:49→21:07)
[2019-05-20] MEDS: ASCORBIC ACID 500 MG TABLET JT SCH ×2 (08:52→21:07)
[2019-05-20] MEDS: METOPROLOL TARTRATE 50 MG TABLET JT SCH ×2 (08:52→21:07)
[2019-05-20] MEDS: COD LIVER OIL/ZINC OXIDE OINT 113 GM TUBE TP SCH ×4 (08:52→21:08)
[2019-05-20] MEDS: NYSTATIN CREAM 30 GM TUBE TP SCH ×2 (08:54→21:08)
[2019-05-20 09:19] VITALS: BP 100/50
[2019-05-20] MEDS: HYDROGEN PEROXIDE 3% 118 ML BOTTLE TP SCH ×2 (09:58→21:36)
[2019-05-20] MEDS: VITAL AF 1.2 1,000 ML LIQUID JT PRN (17:29)
[2019-05-20 20:00] VITALS: BP 121/59
[2019-05-20] MEDS: RIVAROXABAN 10 MG TABLET JT SCH (21:00)
[2019-05-20] MEDS: MULTIVIT, IRON, MIN NO. 8, FA TABLET JT SCH (21:07)
[2019-05-20] MEDS: PROTEIN SUPPLEMENT (PROSTAT) 30 ML LIQUID GT SCH (21:07)
[2019-05-20] MEDS: ARGININE/GLUTAMINE/CALCIUM BMB 1 EACH POWD.PACK JT SCH (21:07)
[2019-05-21] MEDS: IPRATROPIUM BROMIDE 0.5 MG/2.5 ML NEBU NEB SCH ×4 (00:31→20:09)
[2019-05-21] MEDS: ALBUTEROL SULFATE 2.5 MG/3 ML NEBU NEB SCH ×4 (00:31→20:09)
[2019-05-21] MEDS: LOPERAMIDE HCL 2 MG CAPSULE GT PRN ×2 (02:39→17:32)
[2019-05-21] MEDS: VITAL AF 1.2 1,000 ML LIQUID JT PRN ×2 (03:27→18:30)
[2019-05-21] MEDS: METOCLOPRAMIDE HCL 10 MG/10 ML UDC JT SCH ×3 (05:34→21:05)
[2019-05-21] MEDS: FAMOTIDINE 20 MG TABLET JT SCH ×2 (05:34→17:25)
[2019-05-21] MEDS: POLYVINYL ALCOHOL OPHT DROPS 15 ML BOTTLE EACHEYE SCH ×3 (05:34→21:05)
[2019-05-21 07:07] LABS: BASOPHILS % (AUTO) 0.3 % (0.0-2.0); HEMATOCRIT 34.6 % (36.7-47.1); HEMOGLOBIN 11.6 g/dL (12.5-16.3); LYMPHOCYTES # (AUTO) 0.7 K/uL (20.0-40.0); LYMPHOCYTES % (AUTO) 10.3 % (20.5-51.5); MEAN CORPUSCULAR HEMOGLOBIN 28.2 uug (23.8-33.4); MEAN CORPUSCULAR HGB CONC 34 g/dL (32.5-36.3); MEAN CORPUSCULAR VOLUME 84.2 fL (73.0-96.2); MONOCYTES # (AUTO) 0.7 K/uL (2.0-10.0); MONOCYTES % (AUTO) 10.1 % (0.0-11.0); NEUTROPHILS # (AUTO) 5.2 K/uL (1.8-8.9); NEUTROPHILS % (AUTO) 79.3 % (38.5-71.5); PLATELET COUNT (AUTO) 109 K/uL (152-348); WHITE BLOOD COUNT (AUTO) 6.5 K/uL (3.6-10.2)
[2019-05-21 07:21] LABS: CREATININE 0.7 mg/dL (0.6-1.3); MAGNESIUM 1.9 mg/dL (1.8-2.4); PHOSPHOROUS 3.8 mg/dL (2.5-4.9)
[2019-05-21] MEDS: LEVETIRACETAM 500 MG/5 ML LIQUID UDC JT SCH ×2 (08:14→21:02)
[2019-05-21] MEDS: METOPROLOL TARTRATE 50 MG TABLET JT SCH ×2 (08:15→21:04)
[2019-05-21] MEDS: ASCORBIC ACID 500 MG TABLET JT SCH ×2 (08:15→21:04)
[2019-05-21] MEDS: COD LIVER OIL/ZINC OXIDE OINT 113 GM TUBE TP SCH ×4 (08:16→21:04)
[2019-05-21] MEDS: NYSTATIN CREAM 30 GM TUBE TP SCH (08:16)
[2019-05-21] MEDS: HYDROGEN PEROXIDE 3% 118 ML BOTTLE TP SCH ×2 (10:05→21:22)
[2019-05-21 11:03] VITALS: BP 115/49
[2019-05-21 20:00] VITALS: BP 122/51
[2019-05-21] MEDS: PROTEIN SUPPLEMENT (PROSTAT) 30 ML LIQUID GT SCH (21:02)
[2019-05-21] MEDS: ARGININE/GLUTAMINE/CALCIUM BMB 1 EACH POWD.PACK JT SCH (21:02)
[2019-05-21] MEDS: RIVAROXABAN 10 MG TABLET JT SCH (21:02)
[2019-05-21] MEDS: MULTIVIT, IRON, MIN NO. 8, FA TABLET JT SCH (21:04)
[2019-05-22] MEDS: ALBUTEROL SULFATE 2.5 MG/3 ML NEBU NEB SCH ×4 (02:29→20:11)
[2019-05-22] MEDS: IPRATROPIUM BROMIDE 0.5 MG/2.5 ML NEBU NEB SCH ×4 (02:29→20:11)
[2019-05-22] MEDS: FAMOTIDINE 20 MG TABLET JT SCH ×2 (06:08→17:13)
[2019-05-22] MEDS: METOCLOPRAMIDE HCL 10 MG/10 ML UDC JT SCH ×3 (06:08→21:19)
[2019-05-22] MEDS: POLYVINYL ALCOHOL OPHT DROPS 15 ML BOTTLE EACHEYE SCH ×3 (06:08→21:19)
[2019-05-22] MEDS: HYDROGEN PEROXIDE 3% 118 ML BOTTLE TP SCH ×2 (07:50→21:00)
[2019-05-22 08:06] VITALS: BP 136/70
[2019-05-22] MEDS: LEVETIRACETAM 500 MG/5 ML LIQUID UDC JT SCH ×2 (08:08→21:18)
[2019-05-22] MEDS: ASCORBIC ACID 500 MG TABLET JT SCH ×2 (08:10→21:18)
[2019-05-22] MEDS: METOPROLOL TARTRATE 50 MG TABLET JT SCH ×2 (08:10→21:18)
[2019-05-22] MEDS: COD LIVER OIL/ZINC OXIDE OINT 113 GM TUBE TP SCH ×4 (08:10→21:19)
[2019-05-22] MEDS: LOPERAMIDE HCL 2 MG CAPSULE GT PRN (09:33)
[2019-05-22 20:00] VITALS: BP 109/53
[2019-05-22] MEDS: PROTEIN SUPPLEMENT (PROSTAT) 30 ML LIQUID GT SCH (21:18)
[2019-05-22] MEDS: ARGININE/GLUTAMINE/CALCIUM BMB 1 EACH POWD.PACK JT SCH (21:18)
[2019-05-22] MEDS: MULTIVIT, IRON, MIN NO. 8, FA TABLET JT SCH (21:18)
[2019-05-22] MEDS: RIVAROXABAN 10 MG TABLET JT SCH (21:19)
[2019-05-23] MEDS: VITAL AF 1.2 1,000 ML LIQUID JT PRN ×3 (00:22→21:58)
[2019-05-23] MEDS: ALBUTEROL SULFATE 2.5 MG/3 ML NEBU NEB SCH ×4 (01:15→19:52)
[2019-05-23] MEDS: IPRATROPIUM BROMIDE 0.5 MG/2.5 ML NEBU NEB SCH ×4 (01:15→19:52)
[2019-05-23] MEDS: METOCLOPRAMIDE HCL 10 MG/10 ML UDC JT SCH ×3 (06:01→21:24)
[2019-05-23] MEDS: POLYVINYL ALCOHOL OPHT DROPS 15 ML BOTTLE EACHEYE SCH ×3 (06:01→21:24)
[2019-05-23] MEDS: FAMOTIDINE 20 MG TABLET JT SCH ×2 (06:01→17:30)
[2019-05-23 08:06] VITALS: BP 118/65
[2019-05-23] MEDS: LEVETIRACETAM 500 MG/5 ML LIQUID UDC JT SCH ×2 (08:38→21:00)
[2019-05-23] MEDS: COD LIVER OIL/ZINC OXIDE OINT 113 GM TUBE TP SCH ×4 (08:39→21:01)
[2019-05-23] MEDS: METOPROLOL TARTRATE 50 MG TABLET JT SCH ×2 (08:39→21:01)
[2019-05-23] MEDS: ASCORBIC ACID 500 MG TABLET JT SCH ×2 (08:39→21:01)
[2019-05-23] MEDS: HYDROGEN PEROXIDE 3% 118 ML BOTTLE TP SCH ×2 (09:00→21:49)
[2019-05-23 20:00] VITALS: BP 110/74
[2019-05-23] MEDS: RIVAROXABAN 10 MG TABLET JT SCH (21:00)
[2019-05-23] MEDS: ARGININE/GLUTAMINE/CALCIUM BMB 1 EACH POWD.PACK JT SCH (21:00)
[2019-05-23] MEDS: PROTEIN SUPPLEMENT (PROSTAT) 30 ML LIQUID GT SCH (21:00)
[2019-05-23] MEDS: MULTIVIT, IRON, MIN NO. 8, FA TABLET JT SCH (21:01)
[2019-05-23] MEDS: LOPERAMIDE HCL 2 MG CAPSULE GT PRN (22:00)
[2019-05-24] MEDS: IPRATROPIUM BROMIDE 0.5 MG/2.5 ML NEBU NEB SCH ×4 (00:56→19:11)
[2019-05-24] MEDS: ALBUTEROL SULFATE 2.5 MG/3 ML NEBU NEB SCH ×4 (00:56→19:11)
[2019-05-24] MEDS: METOCLOPRAMIDE HCL 10 MG/10 ML UDC JT SCH ×3 (05:18→21:38)
[2019-05-24] MEDS: FAMOTIDINE 20 MG TABLET JT SCH ×2 (05:18→17:15)
[2019-05-24] MEDS: POLYVINYL ALCOHOL OPHT DROPS 15 ML BOTTLE EACHEYE SCH ×3 (05:18→21:38)
[2019-05-24 08:30] VITALS: BP 111/53
[2019-05-24] MEDS: HYDROGEN PEROXIDE 3% 118 ML BOTTLE TP SCH ×2 (08:57→21:00)
[2019-05-24] MEDS: ASCORBIC ACID 500 MG TABLET JT SCH ×2 (09:13→21:36)
[2019-05-24] MEDS: METOPROLOL TARTRATE 50 MG TABLET JT SCH ×2 (09:13→21:37)
[2019-05-24] MEDS: LEVETIRACETAM 500 MG/5 ML LIQUID UDC JT SCH ×2 (09:13→21:37)
[2019-05-24] MEDS: COD LIVER OIL/ZINC OXIDE OINT 113 GM TUBE TP SCH ×4 (09:14→21:38)
[2019-05-24 20:00] VITALS: BP 120/52
[2019-05-24] MEDS: ARGININE/GLUTAMINE/CALCIUM BMB 1 EACH POWD.PACK JT SCH (21:37)
[2019-05-24] MEDS: PROTEIN SUPPLEMENT (PROSTAT) 30 ML LIQUID GT SCH (21:37)
[2019-05-24] MEDS: MULTIVIT, IRON, MIN NO. 8, FA TABLET JT SCH (21:37)
[2019-05-24] MEDS: RIVAROXABAN 10 MG TABLET JT SCH (21:38)
[2019-05-25] MEDS: ALBUTEROL SULFATE 2.5 MG/3 ML NEBU NEB SCH ×4 (01:07→19:47)
[2019-05-25] MEDS: IPRATROPIUM BROMIDE 0.5 MG/2.5 ML NEBU NEB SCH ×4 (01:07→19:47)
[2019-05-25] MEDS: VITAL AF 1.2 1,000 ML LIQUID JT PRN ×2 (03:40→19:32)
[2019-05-25] MEDS: FAMOTIDINE 20 MG TABLET JT SCH ×2 (05:38→17:19)
[2019-05-25] MEDS: METOCLOPRAMIDE HCL 10 MG/10 ML UDC JT SCH ×3 (05:38→21:00)
[2019-05-25] MEDS: POLYVINYL ALCOHOL OPHT DROPS 15 ML BOTTLE EACHEYE SCH ×3 (05:38→21:00)
[2019-05-25] MEDS: HYDROGEN PEROXIDE 3% 118 ML BOTTLE TP SCH ×2 (08:32→21:18)
[2019-05-25] MEDS: LEVETIRACETAM 500 MG/5 ML LIQUID UDC JT SCH ×2 (08:32→20:59)
[2019-05-25] MEDS: COD LIVER OIL/ZINC OXIDE OINT 113 GM TUBE TP SCH ×4 (08:33→21:00)
[2019-05-25] MEDS: METOPROLOL TARTRATE 50 MG TABLET JT SCH ×2 (08:33→21:00)
[2019-05-25] MEDS: ASCORBIC ACID 500 MG TABLET JT SCH ×2 (08:33→21:00)
[2019-05-25 11:30] VITALS: BP 127/62
[2019-05-25 20:18] VITALS: BP 127/70
[2019-05-25] MEDS: ARGININE/GLUTAMINE/CALCIUM BMB 1 EACH POWD.PACK JT SCH (20:59)
[2019-05-25] MEDS: RIVAROXABAN 10 MG TABLET JT SCH (20:59)
[2019-05-25] MEDS: PROTEIN SUPPLEMENT (PROSTAT) 30 ML LIQUID GT SCH (20:59)
[2019-05-25] MEDS: LOPERAMIDE HCL 2 MG CAPSULE GT PRN (21:00)
[2019-05-25] MEDS: MULTIVIT, IRON, MIN NO. 8, FA TABLET JT SCH (21:00)
[2019-05-26] MEDS: ALBUTEROL SULFATE 2.5 MG/3 ML NEBU NEB SCH ×4 (01:18→20:07)
[2019-05-26] MEDS: IPRATROPIUM BROMIDE 0.5 MG/2.5 ML NEBU NEB SCH ×4 (01:18→20:07)
[2019-05-26] MEDS: POLYVINYL ALCOHOL OPHT DROPS 15 ML BOTTLE EACHEYE SCH ×3 (05:08→21:13)
[2019-05-26] MEDS: METOCLOPRAMIDE HCL 10 MG/10 ML UDC JT SCH ×3 (05:09→21:14)
[2019-05-26] MEDS: FAMOTIDINE 20 MG TABLET JT SCH ×2 (05:09→17:04)
[2019-05-26] MEDS: LEVETIRACETAM 500 MG/5 ML LIQUID UDC JT SCH ×2 (08:00→21:12)
[2019-05-26] MEDS: METOPROLOL TARTRATE 50 MG TABLET JT SCH ×2 (08:01→21:12)
[2019-05-26] MEDS: ASCORBIC ACID 500 MG TABLET JT SCH ×2 (08:01→21:13)
[2019-05-26] MEDS: COD LIVER OIL/ZINC OXIDE OINT 113 GM TUBE TP SCH ×4 (08:02→21:13)
[2019-05-26] MEDS: HYDROGEN PEROXIDE 3% 118 ML BOTTLE TP SCH ×2 (08:18→20:35)
[2019-05-26 09:09] VITALS: BP 111/49
[2019-05-26] MEDS: VITAL AF 1.2 1,000 ML LIQUID JT PRN (11:44)
[2019-05-26] MEDS: RIVAROXABAN 10 MG TABLET JT SCH (21:00)
[2019-05-26] MEDS: ARGININE/GLUTAMINE/CALCIUM BMB 1 EACH POWD.PACK JT SCH (21:09)
[2019-05-26] MEDS: PROTEIN SUPPLEMENT (PROSTAT) 30 ML LIQUID GT SCH (21:09)
[2019-05-26] MEDS: MULTIVIT, IRON, MIN NO. 8, FA TABLET JT SCH (21:12)
[2019-05-26 22:16] VITALS: BP 138/73
[2019-05-27] MEDS: VITAL AF 1.2 1,000 ML LIQUID JT PRN ×2 (00:05→14:33)
[2019-05-27] MEDS: ALBUTEROL SULFATE 2.5 MG/3 ML NEBU NEB SCH ×4 (01:15→19:11)
[2019-05-27] MEDS: IPRATROPIUM BROMIDE 0.5 MG/2.5 ML NEBU NEB SCH ×4 (01:15→19:11)
[2019-05-27] MEDS: FAMOTIDINE 20 MG TABLET JT SCH ×2 (06:21→17:03)
[2019-05-27] MEDS: POLYVINYL ALCOHOL OPHT DROPS 15 ML BOTTLE EACHEYE SCH ×3 (06:21→21:02)
[2019-05-27] MEDS: METOCLOPRAMIDE HCL 10 MG/10 ML UDC JT SCH ×3 (06:21→21:02)
[2019-05-27] MEDS: METOPROLOL TARTRATE 50 MG TABLET JT SCH ×2 (08:39→21:00)
[2019-05-27] MEDS: COD LIVER OIL/ZINC OXIDE OINT 113 GM TUBE TP SCH ×4 (08:39→21:02)
[2019-05-27] MEDS: LEVETIRACETAM 500 MG/5 ML LIQUID UDC JT SCH ×2 (08:39→20:57)
[2019-05-27] MEDS: ASCORBIC ACID 500 MG TABLET JT SCH ×2 (08:39→21:00)
[2019-05-27] MEDS: HYDROGEN PEROXIDE 3% 118 ML BOTTLE TP SCH ×2 (09:07→21:00)
[2019-05-27 11:06] VITALS: BP 134/94
[2019-05-27 20:33] VITALS: BP 138/60
[2019-05-27] MEDS: ARGININE/GLUTAMINE/CALCIUM BMB 1 EACH POWD.PACK JT SCH (20:56)
[2019-05-27] MEDS: PROTEIN SUPPLEMENT (PROSTAT) 30 ML LIQUID GT SCH (20:56)
[2019-05-27] MEDS: MULTIVIT, IRON, MIN NO. 8, FA TABLET JT SCH (21:00)
[2019-05-27] MEDS: RIVAROXABAN 10 MG TABLET JT SCH (21:02)
[2019-05-28] MEDS: IPRATROPIUM BROMIDE 0.5 MG/2.5 ML NEBU NEB SCH ×4 (01:42→20:16)
[2019-05-28] MEDS: ALBUTEROL SULFATE 2.5 MG/3 ML NEBU NEB SCH ×4 (01:42→20:16)
[2019-05-28] MEDS: POLYVINYL ALCOHOL OPHT DROPS 15 ML BOTTLE EACHEYE SCH ×3 (05:23→21:01)
[2019-05-28] MEDS: METOCLOPRAMIDE HCL 10 MG/10 ML UDC JT SCH ×3 (05:24→21:01)
[2019-05-28] MEDS: VITAL AF 1.2 1,000 ML LIQUID JT PRN ×2 (05:24→21:02)
[2019-05-28] MEDS: FAMOTIDINE 20 MG TABLET JT SCH ×2 (05:24→17:26)
[2019-05-28] MEDS: LEVETIRACETAM 500 MG/5 ML LIQUID UDC JT SCH ×2 (08:26→20:43)
[2019-05-28] MEDS: METOPROLOL TARTRATE 50 MG TABLET JT SCH ×2 (08:27→21:01)
[2019-05-28] MEDS: ASCORBIC ACID 500 MG TABLET JT SCH ×2 (08:27→20:45)
[2019-05-28] MEDS: COD LIVER OIL/ZINC OXIDE OINT 113 GM TUBE TP SCH ×4 (08:27→20:45)
[2019-05-28] MEDS: HYDROGEN PEROXIDE 3% 118 ML BOTTLE TP SCH ×2 (09:48→21:51)
[2019-05-28 11:59] VITALS: BP 102/77
[2019-05-28 20:20] VITALS: BP 133/94
[2019-05-28] MEDS: ARGININE/GLUTAMINE/CALCIUM BMB 1 EACH POWD.PACK JT SCH (20:43)
[2019-05-28] MEDS: PROTEIN SUPPLEMENT (PROSTAT) 30 ML LIQUID GT SCH (20:43)
[2019-05-28] MEDS: MULTIVIT, IRON, MIN NO. 8, FA TABLET JT SCH (20:45)
[2019-05-28] MEDS: RIVAROXABAN 10 MG TABLET JT SCH (21:58)
[2019-05-29] MEDS: IPRATROPIUM BROMIDE 0.5 MG/2.5 ML NEBU NEB SCH ×4 (01:24→20:04)
[2019-05-29] MEDS: ALBUTEROL SULFATE 2.5 MG/3 ML NEBU NEB SCH ×4 (01:24→20:04)
[2019-05-29] MEDS: POLYVINYL ALCOHOL OPHT DROPS 15 ML BOTTLE EACHEYE SCH ×3 (05:21→21:04)
[2019-05-29] MEDS: FAMOTIDINE 20 MG TABLET JT SCH ×2 (05:21→17:15)
[2019-05-29] MEDS: METOCLOPRAMIDE HCL 10 MG/10 ML UDC JT SCH ×3 (05:21→21:04)
[2019-05-29] MEDS: LEVETIRACETAM 500 MG/5 ML LIQUID UDC JT SCH ×2 (08:18→20:42)
[2019-05-29] MEDS: METOPROLOL TARTRATE 50 MG TABLET JT SCH ×2 (08:19→20:42)
[2019-05-29] MEDS: ASCORBIC ACID 500 MG TABLET JT SCH ×2 (08:19→20:42)
[2019-05-29] MEDS: COD LIVER OIL/ZINC OXIDE OINT 113 GM TUBE TP SCH ×4 (08:19→20:43)
[2019-05-29 08:30] VITALS: BP 114/55
[2019-05-29] MEDS: HYDROGEN PEROXIDE 3% 118 ML BOTTLE TP SCH ×2 (09:55→21:08)
[2019-05-29] MEDS: VITAL AF 1.2 1,000 ML LIQUID JT PRN (11:01)
[2019-05-29 20:18] VITALS: BP 121/51
[2019-05-29] MEDS: ARGININE/GLUTAMINE/CALCIUM BMB 1 EACH POWD.PACK JT SCH (20:42)
[2019-05-29] MEDS: MULTIVIT, IRON, MIN NO. 8, FA TABLET JT SCH (20:42)
[2019-05-29] MEDS: PROTEIN SUPPLEMENT (PROSTAT) 30 ML LIQUID GT SCH (20:42)
[2019-05-29] MEDS: RIVAROXABAN 10 MG TABLET JT SCH (21:00)
[2019-05-30] MEDS: VITAL AF 1.2 1,000 ML LIQUID JT PRN ×2 (00:05→14:39)
[2019-05-30] MEDS: ALBUTEROL SULFATE 2.5 MG/3 ML NEBU NEB SCH ×4 (00:34→20:19)
[2019-05-30] MEDS: IPRATROPIUM BROMIDE 0.5 MG/2.5 ML NEBU NEB SCH ×4 (00:34→20:19)
[2019-05-30] MEDS: POLYVINYL ALCOHOL OPHT DROPS 15 ML BOTTLE EACHEYE SCH ×3 (06:24→21:11)
[2019-05-30] MEDS: METOCLOPRAMIDE HCL 10 MG/10 ML UDC JT SCH ×3 (06:24→21:11)
[2019-05-30] MEDS: FAMOTIDINE 20 MG TABLET JT SCH ×2 (06:24→18:19)
[2019-05-30 08:00] VITALS: BP 118/58
[2019-05-30] MEDS: LEVETIRACETAM 500 MG/5 ML LIQUID UDC JT SCH ×2 (08:07→20:48)
[2019-05-30] MEDS: COD LIVER OIL/ZINC OXIDE OINT 113 GM TUBE TP SCH ×4 (08:08→20:51)
[2019-05-30] MEDS: ASCORBIC ACID 500 MG TABLET JT SCH ×2 (08:08→20:48)
[2019-05-30] MEDS: METOPROLOL TARTRATE 50 MG TABLET JT SCH ×2 (08:08→20:48)
[2019-05-30] MEDS: HYDROGEN PEROXIDE 3% 118 ML BOTTLE TP SCH ×2 (08:10→21:00)
[2019-05-30] MEDS: LOPERAMIDE HCL 2 MG CAPSULE GT PRN (12:47)
[2019-05-30] MEDS: PROTEIN SUPPLEMENT (PROSTAT) 30 ML LIQUID GT SCH (20:48)
[2019-05-30] MEDS: ARGININE/GLUTAMINE/CALCIUM BMB 1 EACH POWD.PACK JT SCH (20:48)
[2019-05-30] MEDS: MULTIVIT, IRON, MIN NO. 8, FA TABLET JT SCH (20:48)
[2019-05-30] MEDS: RIVAROXABAN 10 MG TABLET JT SCH (20:49)
[2019-05-30 22:06] VITALS: BP 121/59
[2019-05-31] MEDS: IPRATROPIUM BROMIDE 0.5 MG/2.5 ML NEBU NEB SCH ×4 (01:22→20:05)
[2019-05-31] MEDS: ALBUTEROL SULFATE 2.5 MG/3 ML NEBU NEB SCH ×4 (01:22→20:05)
[2019-05-31] MEDS: METOCLOPRAMIDE HCL 10 MG/10 ML UDC JT SCH ×3 (05:02→21:24)
[2019-05-31] MEDS: POLYVINYL ALCOHOL OPHT DROPS 15 ML BOTTLE EACHEYE SCH ×3 (05:02→21:21)
[2019-05-31] MEDS: FAMOTIDINE 20 MG TABLET JT SCH ×2 (05:02→18:11)
[2019-05-31] MEDS: VITAL AF 1.2 1,000 ML LIQUID JT PRN ×2 (05:02→18:57)
[2019-05-31] MEDS: HYDROGEN PEROXIDE 3% 118 ML BOTTLE TP SCH ×2 (07:50→21:19)
[2019-05-31 08:05] VITALS: BP 114/51
[2019-05-31] MEDS: LEVETIRACETAM 500 MG/5 ML LIQUID UDC JT SCH ×2 (08:49→21:16)
[2019-05-31] MEDS: METOPROLOL TARTRATE 50 MG TABLET JT SCH ×2 (08:52→21:17)
[2019-05-31] MEDS: ASCORBIC ACID 500 MG TABLET JT SCH ×2 (08:52→21:18)
[2019-05-31] MEDS: COD LIVER OIL/ZINC OXIDE OINT 113 GM TUBE TP SCH ×4 (08:53→21:20)
[2019-05-31] MEDS: LOPERAMIDE HCL 2 MG CAPSULE GT PRN (11:25)
[2019-05-31] MEDS: PROTEIN SUPPLEMENT (PROSTAT) 30 ML LIQUID GT SCH (21:16)
[2019-05-31] MEDS: ARGININE/GLUTAMINE/CALCIUM BMB 1 EACH POWD.PACK JT SCH (21:16)
[2019-05-31] MEDS: MULTIVIT, IRON, MIN NO. 8, FA TABLET JT SCH (21:17)
[2019-05-31] MEDS: RIVAROXABAN 10 MG TABLET JT SCH (21:20)
[2019-05-31 22:11] VITALS: BP 114/54
[2019-06-01] MEDS: IPRATROPIUM BROMIDE 0.5 MG/2.5 ML NEBU NEB SCH ×4 (01:21→20:30)
[2019-06-01] MEDS: ALBUTEROL SULFATE 2.5 MG/3 ML NEBU NEB SCH ×4 (01:21→20:30)
[2019-06-01] MEDS: METOCLOPRAMIDE HCL 10 MG/10 ML UDC JT SCH ×3 (05:04→21:57)
[2019-06-01] MEDS: POLYVINYL ALCOHOL OPHT DROPS 15 ML BOTTLE EACHEYE SCH ×3 (05:04→21:57)
[2019-06-01] MEDS: FAMOTIDINE 20 MG TABLET JT SCH ×2 (05:04→17:17)
[2019-06-01] MEDS: HYDROGEN PEROXIDE 3% 118 ML BOTTLE TP SCH ×2 (08:02→20:41)
[2019-06-01 08:30] VITALS: BP 116/49
[2019-06-01] MEDS: LEVETIRACETAM 500 MG/5 ML LIQUID UDC JT SCH ×2 (09:29→21:55)
[2019-06-01] MEDS: METOPROLOL TARTRATE 50 MG TABLET JT SCH ×2 (09:29→21:56)
[2019-06-01] MEDS: COD LIVER OIL/ZINC OXIDE OINT 113 GM TUBE TP SCH ×4 (09:29→21:57)
[2019-06-01] MEDS: ASCORBIC ACID 500 MG TABLET JT SCH ×2 (09:29→21:56)
[2019-06-01] MEDS: VITAL AF 1.2 1,000 ML LIQUID JT PRN (09:56)
[2019-06-01] MEDS: RIVAROXABAN 10 MG TABLET JT SCH (21:00)
[2019-06-01] MEDS: ARGININE/GLUTAMINE/CALCIUM BMB 1 EACH POWD.PACK JT SCH (21:55)
[2019-06-01] MEDS: PROTEIN SUPPLEMENT (PROSTAT) 30 ML LIQUID GT SCH (21:55)
[2019-06-01] MEDS: MULTIVIT, IRON, MIN NO. 8, FA TABLET JT SCH (21:56)
[2019-06-01 22:15] VITALS: BP 125/52
[2019-06-02] MEDS: VITAL AF 1.2 1,000 ML LIQUID JT PRN ×2 (00:53→15:31)
[2019-06-02] MEDS: ALBUTEROL SULFATE 2.5 MG/3 ML NEBU NEB SCH ×4 (01:25→20:20)
[2019-06-02] MEDS: IPRATROPIUM BROMIDE 0.5 MG/2.5 ML NEBU NEB SCH ×4 (01:25→20:20)
[2019-06-02] MEDS: FAMOTIDINE 20 MG TABLET JT SCH ×2 (05:39→17:37)
[2019-06-02] MEDS: METOCLOPRAMIDE HCL 10 MG/10 ML UDC JT SCH ×3 (05:39→21:54)
[2019-06-02] MEDS: POLYVINYL ALCOHOL OPHT DROPS 15 ML BOTTLE EACHEYE SCH ×3 (05:39→21:56)
[2019-06-02] MEDS: LEVETIRACETAM 500 MG/5 ML LIQUID UDC JT SCH ×2 (08:59→20:13)
[2019-06-02] MEDS: METOPROLOL TARTRATE 50 MG TABLET JT SCH ×2 (09:00→20:13)
[2019-06-02] MEDS: COD LIVER OIL/ZINC OXIDE OINT 113 GM TUBE TP SCH ×4 (09:01→20:14)
[2019-06-02] MEDS: ASCORBIC ACID 500 MG TABLET JT SCH ×2 (09:01→20:13)
[2019-06-02 09:21] VITALS: BP 119/40
[2019-06-02] MEDS: HYDROGEN PEROXIDE 3% 118 ML BOTTLE TP SCH ×2 (09:51→20:20)
[2019-06-02 19:51] VITALS: BP 115/56
[2019-06-02] MEDS: ARGININE/GLUTAMINE/CALCIUM BMB 1 EACH POWD.PACK JT SCH (20:13)
[2019-06-02] MEDS: MULTIVIT, IRON, MIN NO. 8, FA TABLET JT SCH (20:13)
[2019-06-02] MEDS: PROTEIN SUPPLEMENT (PROSTAT) 30 ML LIQUID GT SCH (20:13)
[2019-06-02] MEDS: RIVAROXABAN 10 MG TABLET JT SCH (20:14)
[2019-06-03] MEDS: VITAL AF 1.2 1,000 ML LIQUID JT PRN ×2 (01:14→17:20)
[2019-06-03] MEDS: IPRATROPIUM BROMIDE 0.5 MG/2.5 ML NEBU NEB SCH ×4 (01:48→19:38)
[2019-06-03] MEDS: ALBUTEROL SULFATE 2.5 MG/3 ML NEBU NEB SCH ×4 (01:48→19:38)
[2019-06-03] MEDS: FAMOTIDINE 20 MG TABLET JT SCH ×2 (06:09→17:20)
[2019-06-03] MEDS: METOCLOPRAMIDE HCL 10 MG/10 ML UDC JT SCH ×3 (06:09→22:01)
[2019-06-03] MEDS: POLYVINYL ALCOHOL OPHT DROPS 15 ML BOTTLE EACHEYE SCH ×3 (06:09→22:01)
[2019-06-03] MEDS: LEVETIRACETAM 500 MG/5 ML LIQUID UDC JT SCH ×2 (08:34→20:19)
[2019-06-03] MEDS: METOPROLOL TARTRATE 50 MG TABLET JT SCH ×2 (08:35→20:19)
[2019-06-03] MEDS: COD LIVER OIL/ZINC OXIDE OINT 113 GM TUBE TP SCH ×4 (08:35→20:20)
[2019-06-03] MEDS: ASCORBIC ACID 500 MG TABLET JT SCH ×2 (08:35→20:20)
[2019-06-03] MEDS: HYDROGEN PEROXIDE 3% 118 ML BOTTLE TP SCH ×2 (09:00→21:09)
[2019-06-03 09:06] VITALS: BP 125/65
[2019-06-03 19:57] VITALS: BP 115/52
[2019-06-03] MEDS: PROTEIN SUPPLEMENT (PROSTAT) 30 ML LIQUID GT SCH (20:18)
[2019-06-03] MEDS: ARGININE/GLUTAMINE/CALCIUM BMB 1 EACH POWD.PACK JT SCH (20:18)
[2019-06-03] MEDS: MULTIVIT, IRON, MIN NO. 8, FA TABLET JT SCH (20:19)
[2019-06-03] MEDS: RIVAROXABAN 10 MG TABLET JT SCH (20:40)
[2019-06-04] MEDS: ALBUTEROL SULFATE 2.5 MG/3 ML NEBU NEB SCH ×4 (00:51→19:00)
[2019-06-04] MEDS: IPRATROPIUM BROMIDE 0.5 MG/2.5 ML NEBU NEB SCH ×4 (00:51→19:00)
[2019-06-04] MEDS: POLYVINYL ALCOHOL OPHT DROPS 15 ML BOTTLE EACHEYE SCH ×3 (05:14→21:28)
[2019-06-04] MEDS: FAMOTIDINE 20 MG TABLET JT SCH ×2 (05:14→17:26)
[2019-06-04] MEDS: METOCLOPRAMIDE HCL 10 MG/10 ML UDC JT SCH ×3 (05:14→21:28)
[2019-06-04] MEDS: VITAL AF 1.2 1,000 ML LIQUID JT PRN ×2 (07:07→21:28)
[2019-06-04] MEDS: LEVETIRACETAM 500 MG/5 ML LIQUID UDC JT SCH ×2 (08:19→21:18)
[2019-06-04] MEDS: COD LIVER OIL/ZINC OXIDE OINT 113 GM TUBE TP SCH ×4 (08:22→21:27)
[2019-06-04] MEDS: METOPROLOL TARTRATE 50 MG TABLET JT SCH ×2 (08:22→21:00)
[2019-06-04] MEDS: ASCORBIC ACID 500 MG TABLET JT SCH ×2 (08:22→21:18)
[2019-06-04] MEDS: HYDROGEN PEROXIDE 3% 118 ML BOTTLE TP SCH ×2 (09:00→21:15)
[2019-06-04 11:20] VITALS: BP 124/58
[2019-06-04 19:46] VITALS: BP 119/50
[2019-06-04] MEDS: PROTEIN SUPPLEMENT (PROSTAT) 30 ML LIQUID GT SCH (21:18)
[2019-06-04] MEDS: MULTIVIT, IRON, MIN NO. 8, FA TABLET JT SCH (21:18)
[2019-06-04] MEDS: ARGININE/GLUTAMINE/CALCIUM BMB 1 EACH POWD.PACK JT SCH (21:18)
[2019-06-04] MEDS: RIVAROXABAN 10 MG TABLET JT SCH (21:27)
[2019-06-05] MEDS: ALBUTEROL SULFATE 2.5 MG/3 ML NEBU NEB SCH ×4 (01:18→19:02)
[2019-06-05] MEDS: IPRATROPIUM BROMIDE 0.5 MG/2.5 ML NEBU NEB SCH ×4 (01:18→19:02)
[2019-06-05] MEDS: METOCLOPRAMIDE HCL 10 MG/10 ML UDC JT SCH ×3 (05:18→21:38)
[2019-06-05] MEDS: POLYVINYL ALCOHOL OPHT DROPS 15 ML BOTTLE EACHEYE SCH ×3 (05:18→21:38)
[2019-06-05] MEDS: FAMOTIDINE 20 MG TABLET JT SCH ×2 (05:18→17:45)
[2019-06-05 08:30] VITALS: BP 102/56
[2019-06-05] MEDS: HYDROGEN PEROXIDE 3% 118 ML BOTTLE TP SCH ×2 (09:00→21:00)
[2019-06-05] MEDS: LEVETIRACETAM 500 MG/5 ML LIQUID UDC JT SCH ×2 (09:16→21:31)
[2019-06-05] MEDS: METOPROLOL TARTRATE 50 MG TABLET JT SCH ×2 (09:17→21:31)
[2019-06-05] MEDS: ASCORBIC ACID 500 MG TABLET JT SCH ×2 (09:17→21:32)
[2019-06-05] MEDS: COD LIVER OIL/ZINC OXIDE OINT 113 GM TUBE TP SCH ×4 (09:17→21:32)
[2019-06-05 20:00] VITALS: BP 125/65
[2019-06-05] MEDS: ARGININE/GLUTAMINE/CALCIUM BMB 1 EACH POWD.PACK JT SCH (21:31)
[2019-06-05] MEDS: PROTEIN SUPPLEMENT (PROSTAT) 30 ML LIQUID GT SCH (21:31)
[2019-06-05] MEDS: MULTIVIT, IRON, MIN NO. 8, FA TABLET JT SCH (21:32)
[2019-06-05] MEDS: RIVAROXABAN 10 MG TABLET JT SCH (21:34)
[2019-06-05] MEDS: VITAL AF 1.2 1,000 ML LIQUID JT PRN (22:39)
[2019-06-06] MEDS: ALBUTEROL SULFATE 2.5 MG/3 ML NEBU NEB SCH ×4 (02:10→20:10)
[2019-06-06] MEDS: IPRATROPIUM BROMIDE 0.5 MG/2.5 ML NEBU NEB SCH ×4 (02:10→20:10)
[2019-06-06] MEDS: POLYVINYL ALCOHOL OPHT DROPS 15 ML BOTTLE EACHEYE SCH ×3 (05:59→21:26)
[2019-06-06] MEDS: METOCLOPRAMIDE HCL 10 MG/10 ML UDC JT SCH ×3 (05:59→21:26)
[2019-06-06] MEDS: FAMOTIDINE 20 MG TABLET JT SCH ×2 (05:59→17:16)
[2019-06-06 08:04] VITALS: BP 128/51
[2019-06-06] MEDS: COD LIVER OIL/ZINC OXIDE OINT 113 GM TUBE TP SCH ×4 (08:48→21:25)
[2019-06-06] MEDS: METOPROLOL TARTRATE 50 MG TABLET JT SCH ×2 (08:48→21:25)
[2019-06-06] MEDS: LEVETIRACETAM 500 MG/5 ML LIQUID UDC JT SCH ×2 (08:48→21:24)
[2019-06-06] MEDS: ASCORBIC ACID 500 MG TABLET JT SCH ×2 (08:48→21:25)
[2019-06-06] MEDS: HYDROGEN PEROXIDE 3% 118 ML BOTTLE TP SCH ×2 (09:58→20:12)
[2019-06-06] MEDS: VITAL AF 1.2 1,000 ML LIQUID JT PRN (12:04)
[2019-06-06 20:00] VITALS: BP 133/60
[2019-06-06] MEDS: PROTEIN SUPPLEMENT (PROSTAT) 30 ML LIQUID GT SCH (21:24)
[2019-06-06] MEDS: ARGININE/GLUTAMINE/CALCIUM BMB 1 EACH POWD.PACK JT SCH (21:24)
[2019-06-06] MEDS: MULTIVIT, IRON, MIN NO. 8, FA TABLET JT SCH (21:25)
[2019-06-06] MEDS: RIVAROXABAN 10 MG TABLET JT SCH (21:33)
[2019-06-07] MEDS: VITAL AF 1.2 1,000 ML LIQUID JT PRN ×3 (00:18→17:49)
[2019-06-07] MEDS: IPRATROPIUM BROMIDE 0.5 MG/2.5 ML NEBU NEB SCH ×4 (01:34→19:40)
[2019-06-07] MEDS: ALBUTEROL SULFATE 2.5 MG/3 ML NEBU NEB SCH ×4 (01:34→19:40)
[2019-06-07] MEDS: POLYVINYL ALCOHOL OPHT DROPS 15 ML BOTTLE EACHEYE SCH ×3 (05:57→21:27)
[2019-06-07] MEDS: METOCLOPRAMIDE HCL 10 MG/10 ML UDC JT SCH ×3 (05:57→21:28)
[2019-06-07] MEDS: FAMOTIDINE 20 MG TABLET JT SCH ×2 (05:57→17:21)
[2019-06-07 08:03] VITALS: BP 129/65
[2019-06-07] MEDS: LEVETIRACETAM 500 MG/5 ML LIQUID UDC JT SCH ×2 (08:49→21:27)
[2019-06-07] MEDS: ASCORBIC ACID 500 MG TABLET JT SCH ×2 (08:50→21:27)
[2019-06-07] MEDS: METOPROLOL TARTRATE 50 MG TABLET JT SCH ×2 (08:50→21:27)
[2019-06-07] MEDS: COD LIVER OIL/ZINC OXIDE OINT 113 GM TUBE TP SCH ×4 (08:51→21:27)
[2019-06-07] MEDS: HYDROGEN PEROXIDE 3% 118 ML BOTTLE TP SCH ×2 (09:00→21:01)
[2019-06-07 20:00] VITALS: BP 133/61
[2019-06-07] MEDS: PROTEIN SUPPLEMENT (PROSTAT) 30 ML LIQUID GT SCH (21:27)
[2019-06-07] MEDS: ARGININE/GLUTAMINE/CALCIUM BMB 1 EACH POWD.PACK JT SCH (21:27)
[2019-06-07] MEDS: MULTIVIT, IRON, MIN NO. 8, FA TABLET JT SCH (21:27)
[2019-06-07] MEDS: RIVAROXABAN 10 MG TABLET JT SCH (21:37)
[2019-06-08] MEDS: ALBUTEROL SULFATE 2.5 MG/3 ML NEBU NEB SCH ×4 (00:32→20:10)
[2019-06-08] MEDS: IPRATROPIUM BROMIDE 0.5 MG/2.5 ML NEBU NEB SCH ×4 (00:32→20:10)
[2019-06-08] MEDS: VITAL AF 1.2 1,000 ML LIQUID JT PRN ×2 (03:59→17:33)
[2019-06-08] MEDS: ACETAMINOPHEN 650 MG/20 ML UDC- SA PATIENTS-PAIN ONLY JT PRN (03:59)
[2019-06-08] MEDS: FAMOTIDINE 20 MG TABLET JT SCH ×2 (05:42→17:32)
[2019-06-08] MEDS: POLYVINYL ALCOHOL OPHT DROPS 15 ML BOTTLE EACHEYE SCH ×3 (05:42→21:31)
[2019-06-08] MEDS: METOCLOPRAMIDE HCL 10 MG/10 ML UDC JT SCH ×3 (05:43→21:31)
[2019-06-08] MEDS: LEVETIRACETAM 500 MG/5 ML LIQUID UDC JT SCH ×2 (08:37→20:54)
[2019-06-08] MEDS: ASCORBIC ACID 500 MG TABLET JT SCH ×2 (08:38→20:55)
[2019-06-08] MEDS: METOPROLOL TARTRATE 50 MG TABLET JT SCH ×2 (08:38→20:55)
[2019-06-08] MEDS: COD LIVER OIL/ZINC OXIDE OINT 113 GM TUBE TP SCH ×4 (08:38→20:55)
[2019-06-08] MEDS: HYDROGEN PEROXIDE 3% 118 ML BOTTLE TP SCH ×2 (09:00→21:47)
[2019-06-08 11:12] VITALS: BP 142/71
[2019-06-08 20:45] VITALS: BP 118/70
[2019-06-08] MEDS: ARGININE/GLUTAMINE/CALCIUM BMB 1 EACH POWD.PACK JT SCH (20:54)
[2019-06-08] MEDS: PROTEIN SUPPLEMENT (PROSTAT) 30 ML LIQUID GT SCH (20:54)
[2019-06-08] MEDS: MULTIVIT, IRON, MIN NO. 8, FA TABLET JT SCH (20:55)
[2019-06-08] MEDS: RIVAROXABAN 10 MG TABLET JT SCH (20:55)
[2019-06-09] MEDS: IPRATROPIUM BROMIDE 0.5 MG/2.5 ML NEBU NEB SCH ×4 (01:50→19:17)
[2019-06-09] MEDS: ALBUTEROL SULFATE 2.5 MG/3 ML NEBU NEB SCH ×4 (01:50→19:17)
[2019-06-09] MEDS: LOPERAMIDE HCL 2 MG CAPSULE GT PRN (02:00)
[2019-06-09] MEDS: METOCLOPRAMIDE HCL 10 MG/10 ML UDC JT SCH ×3 (05:16→21:02)
[2019-06-09] MEDS: FAMOTIDINE 20 MG TABLET JT SCH ×2 (05:16→17:17)
[2019-06-09] MEDS: POLYVINYL ALCOHOL OPHT DROPS 15 ML BOTTLE EACHEYE SCH ×3 (05:16→21:02)
[2019-06-09 07:40] VITALS: BP 136/69
[2019-06-09] MEDS: LEVETIRACETAM 500 MG/5 ML LIQUID UDC JT SCH ×2 (08:27→20:58)
[2019-06-09] MEDS: COD LIVER OIL/ZINC OXIDE OINT 113 GM TUBE TP SCH ×4 (08:28→21:02)
[2019-06-09] MEDS: ASCORBIC ACID 500 MG TABLET JT SCH ×2 (08:28→20:59)
[2019-06-09] MEDS: METOPROLOL TARTRATE 50 MG TABLET JT SCH ×2 (08:28→20:59)
[2019-06-09] MEDS: HYDROGEN PEROXIDE 3% 118 ML BOTTLE TP SCH ×2 (09:57→21:28)
[2019-06-09 14:40] LABS: EOSINOPHILS % (AUTO) 0.2 % (0.0-7.0); LYMPHOCYTES # (AUTO) 1.4 K/uL (20.0-40.0); MONOCYTES # (AUTO) 0.5 K/uL (2.0-10.0); WHITE BLOOD COUNT (AUTO) 7.1 K/uL (3.6-10.2)
[2019-06-09 14:50] LABS: BASOPHILS % (AUTO) 0.4 % (0.0-2.0); HEMATOCRIT 38.9 % (36.7-47.1); HEMOGLOBIN 12.6 g/dL (12.5-16.3); LYMPHOCYTES % (AUTO) 19.9 % (20.5-51.5); MEAN CORPUSCULAR HEMOGLOBIN 27.6 uug (23.8-33.4); MEAN CORPUSCULAR HGB CONC 32 g/dL (32.5-36.3); MEAN CORPUSCULAR VOLUME 85.3 fL (73.0-96.2); MONOCYTES % (AUTO) 7.4 % (0.0-11.0); NEUTROPHILS # (AUTO) 5.1 K/uL (1.8-8.9); NEUTROPHILS % (AUTO) 72.1 % (38.5-71.5); RED BLOOD CELL COUNT(AUTO) 4.55 MIL/uL (4.06-5.63)
[2019-06-09 14:52] LABS: CREATININE 0.7 mg/dL (0.6-1.3); PLATELET COUNT (AUTO) 146 K/uL (152-348)
[2019-06-09] MEDS: ARGININE/GLUTAMINE/CALCIUM BMB 1 EACH POWD.PACK JT SCH (20:58)
[2019-06-09] MEDS: PROTEIN SUPPLEMENT (PROSTAT) 30 ML LIQUID GT SCH (20:58)
[2019-06-09] MEDS: MULTIVIT, IRON, MIN NO. 8, FA TABLET JT SCH (20:59)
[2019-06-09] MEDS: RIVAROXABAN 10 MG TABLET JT SCH (21:01)
[2019-06-09 22:04] VITALS: BP 130/70
[2019-06-10] MEDS: ALBUTEROL SULFATE 2.5 MG/3 ML NEBU NEB SCH ×4 (00:59→19:50)
[2019-06-10] MEDS: IPRATROPIUM BROMIDE 0.5 MG/2.5 ML NEBU NEB SCH ×4 (00:59→19:50)
[2019-06-10] MEDS: METOCLOPRAMIDE HCL 10 MG/10 ML UDC JT SCH (05:36)
[2019-06-10] MEDS: FAMOTIDINE 20 MG TABLET JT SCH ×2 (05:36→17:38)
[2019-06-10] MEDS: POLYVINYL ALCOHOL OPHT DROPS 15 ML BOTTLE EACHEYE SCH ×3 (05:36→21:09)
[2019-06-10] MEDS: VITAL AF 1.2 1,000 ML LIQUID JT PRN (05:37)
[2019-06-10] MEDS: LEVETIRACETAM 500 MG/5 ML LIQUID UDC JT SCH ×2 (08:49→21:05)
[2019-06-10] MEDS: ASCORBIC ACID 500 MG TABLET JT SCH ×2 (08:49→21:06)
[2019-06-10] MEDS: COD LIVER OIL/ZINC OXIDE OINT 113 GM TUBE TP SCH ×4 (08:49→21:08)
[2019-06-10] MEDS: METOPROLOL TARTRATE 50 MG TABLET JT SCH ×2 (08:49→21:06)
[2019-06-10] MEDS: HYDROGEN PEROXIDE 3% 118 ML BOTTLE TP SCH ×2 (09:45→21:11)
[2019-06-10 11:02] VITALS: BP 172/87
[2019-06-10 20:51] VITALS: BP 140/86
[2019-06-10] MEDS: PROTEIN SUPPLEMENT (PROSTAT) 30 ML LIQUID GT SCH (21:05)
[2019-06-10] MEDS: ARGININE/GLUTAMINE/CALCIUM BMB 1 EACH POWD.PACK JT SCH (21:05)
[2019-06-10] MEDS: MULTIVIT, IRON, MIN NO. 8, FA TABLET JT SCH (21:06)
[2019-06-10] MEDS: RIVAROXABAN 10 MG TABLET JT SCH (21:08)
[2019-06-11] MEDS: ALBUTEROL SULFATE 2.5 MG/3 ML NEBU NEB SCH ×4 (01:05→20:11)
[2019-06-11] MEDS: IPRATROPIUM BROMIDE 0.5 MG/2.5 ML NEBU NEB SCH ×4 (01:05→20:11)
[2019-06-11] MEDS: VITAL AF 1.2 1,000 ML LIQUID JT PRN (04:59)
[2019-06-11] MEDS: LOPERAMIDE HCL 2 MG/15 ML GT PRN (04:59)
[2019-06-11] MEDS: POLYVINYL ALCOHOL OPHT DROPS 15 ML BOTTLE EACHEYE SCH ×3 (05:27→22:16)
[2019-06-11] MEDS: FAMOTIDINE 20 MG TABLET JT SCH ×2 (05:27→17:23)
[2019-06-11] MEDS: METOPROLOL TARTRATE 50 MG TABLET JT SCH ×2 (09:00→20:55)
[2019-06-11] MEDS: COD LIVER OIL/ZINC OXIDE OINT 113 GM TUBE TP SCH ×4 (09:00→20:57)
[2019-06-11] MEDS: LEVETIRACETAM 500 MG/5 ML LIQUID UDC JT SCH ×2 (09:00→20:51)
[2019-06-11] MEDS: ASCORBIC ACID 500 MG TABLET JT SCH ×2 (09:00→20:55)
[2019-06-11] MEDS: HYDROGEN PEROXIDE 3% 118 ML BOTTLE TP SCH ×2 (09:56→20:11)
[2019-06-11 10:59] VITALS: BP 140/73
[2019-06-11 20:00] VITALS: BP 135/62
[2019-06-11] MEDS: PROTEIN SUPPLEMENT (PROSTAT) 30 ML LIQUID GT SCH (20:51)
[2019-06-11] MEDS: ARGININE/GLUTAMINE/CALCIUM BMB 1 EACH POWD.PACK JT SCH (20:51)
[2019-06-11] MEDS: MULTIVIT, IRON, MIN NO. 8, FA TABLET JT SCH (20:55)
[2019-06-11] MEDS: RIVAROXABAN 10 MG TABLET JT SCH (20:56)
[2019-06-12] MEDS: VITAL AF 1.2 1,000 ML LIQUID JT PRN ×2 (00:39→16:14)
[2019-06-12] MEDS: ALBUTEROL SULFATE 2.5 MG/3 ML NEBU NEB SCH ×4 (01:53→20:01)
[2019-06-12] MEDS: IPRATROPIUM BROMIDE 0.5 MG/2.5 ML NEBU NEB SCH ×4 (01:53→20:01)
[2019-06-12] MEDS: POLYVINYL ALCOHOL OPHT DROPS 15 ML BOTTLE EACHEYE SCH ×3 (05:48→21:02)
[2019-06-12] MEDS: FAMOTIDINE 20 MG TABLET JT SCH ×2 (05:48→17:08)
[2019-06-12] MEDS: HYDROGEN PEROXIDE 3% 118 ML BOTTLE TP SCH ×2 (08:01→20:58)
[2019-06-12] MEDS: ASCORBIC ACID 500 MG TABLET JT SCH ×2 (08:40→20:59)
[2019-06-12] MEDS: COD LIVER OIL/ZINC OXIDE OINT 113 GM TUBE TP SCH ×4 (08:40→21:02)
[2019-06-12] MEDS: METOPROLOL TARTRATE 50 MG TABLET JT SCH ×2 (08:40→20:59)
[2019-06-12] MEDS: LEVETIRACETAM 500 MG/5 ML LIQUID UDC JT SCH ×2 (08:40→20:58)
[2019-06-12 12:00] VITALS: BP 156/72
[2019-06-12 20:39] VITALS: BP 133/68
[2019-06-12] MEDS: PROTEIN SUPPLEMENT (PROSTAT) 30 ML LIQUID GT SCH (20:57)
[2019-06-12] MEDS: ARGININE/GLUTAMINE/CALCIUM BMB 1 EACH POWD.PACK JT SCH (20:58)
[2019-06-12] MEDS: MULTIVIT, IRON, MIN NO. 8, FA TABLET JT SCH (20:59)
[2019-06-12] MEDS: RIVAROXABAN 10 MG TABLET JT SCH (20:59)
[2019-06-13] MEDS: ALBUTEROL SULFATE 2.5 MG/3 ML NEBU NEB SCH ×4 (00:31→20:11)
[2019-06-13] MEDS: IPRATROPIUM BROMIDE 0.5 MG/2.5 ML NEBU NEB SCH ×4 (00:31→20:11)
[2019-06-13] MEDS: VITAL AF 1.2 1,000 ML LIQUID JT PRN ×2 (03:57→22:53)
[2019-06-13] MEDS: FAMOTIDINE 20 MG TABLET JT SCH ×2 (06:04→17:07)
[2019-06-13] MEDS: POLYVINYL ALCOHOL OPHT DROPS 15 ML BOTTLE EACHEYE SCH ×3 (06:04→21:23)
[2019-06-13] MEDS: METOPROLOL TARTRATE 50 MG TABLET JT SCH ×2 (08:33→20:58)
[2019-06-13] MEDS: LEVETIRACETAM 500 MG/5 ML LIQUID UDC JT SCH ×2 (08:33→20:58)
[2019-06-13] MEDS: ASCORBIC ACID 500 MG TABLET JT SCH ×2 (08:33→20:58)
[2019-06-13] MEDS: COD LIVER OIL/ZINC OXIDE OINT 113 GM TUBE TP SCH ×4 (08:34→20:59)
[2019-06-13] MEDS: HYDROGEN PEROXIDE 3% 118 ML BOTTLE TP SCH ×2 (09:45→21:47)
[2019-06-13 10:35] VITALS: BP 132/60
[2019-06-13 20:42] VITALS: BP 136/64
[2019-06-13] MEDS: ARGININE/GLUTAMINE/CALCIUM BMB 1 EACH POWD.PACK JT SCH (20:58)
[2019-06-13] MEDS: PROTEIN SUPPLEMENT (PROSTAT) 30 ML LIQUID GT SCH (20:58)
[2019-06-13] MEDS: MULTIVIT, IRON, MIN NO. 8, FA TABLET JT SCH (20:58)
[2019-06-13] MEDS: RIVAROXABAN 10 MG TABLET JT SCH (20:59)
[2019-06-14] MEDS: ALBUTEROL SULFATE 2.5 MG/3 ML NEBU NEB SCH ×4 (01:26→19:40)
[2019-06-14] MEDS: IPRATROPIUM BROMIDE 0.5 MG/2.5 ML NEBU NEB SCH ×4 (01:26→19:40)
[2019-06-14] MEDS: FAMOTIDINE 20 MG TABLET JT SCH ×2 (05:21→17:32)
[2019-06-14] MEDS: POLYVINYL ALCOHOL OPHT DROPS 15 ML BOTTLE EACHEYE SCH ×3 (05:21→21:11)
[2019-06-14 08:05] VITALS: BP 140/60
[2019-06-14] MEDS: ASCORBIC ACID 500 MG TABLET JT SCH ×2 (08:44→20:56)
[2019-06-14] MEDS: LEVETIRACETAM 500 MG/5 ML LIQUID UDC JT SCH ×2 (08:44→20:56)
[2019-06-14] MEDS: METOPROLOL TARTRATE 50 MG TABLET JT SCH ×2 (08:44→20:56)
[2019-06-14] MEDS: COD LIVER OIL/ZINC OXIDE OINT 113 GM TUBE TP SCH ×4 (08:45→20:57)
[2019-06-14] MEDS: HYDROGEN PEROXIDE 3% 118 ML BOTTLE TP SCH ×2 (09:47→21:38)
[2019-06-14] MEDS: VITAL AF 1.2 1,000 ML LIQUID JT PRN (11:39)
[2019-06-14 20:47] VITALS: BP 134/64
[2019-06-14] MEDS: PROTEIN SUPPLEMENT (PROSTAT) 30 ML LIQUID GT SCH (20:55)
[2019-06-14] MEDS: MULTIVIT, IRON, MIN NO. 8, FA TABLET JT SCH (20:56)
[2019-06-14] MEDS: ARGININE/GLUTAMINE/CALCIUM BMB 1 EACH POWD.PACK JT SCH (20:56)
[2019-06-14] MEDS: RIVAROXABAN 10 MG TABLET JT SCH (20:56)
[2019-06-15] MEDS: VITAL AF 1.2 1,000 ML LIQUID JT PRN ×2 (00:13→15:22)
[2019-06-15] MEDS: IPRATROPIUM BROMIDE 0.5 MG/2.5 ML NEBU NEB SCH ×4 (01:20→20:04)
[2019-06-15] MEDS: ALBUTEROL SULFATE 2.5 MG/3 ML NEBU NEB SCH ×4 (01:20→20:04)
[2019-06-15] MEDS: POLYVINYL ALCOHOL OPHT DROPS 15 ML BOTTLE EACHEYE SCH ×3 (05:28→21:21)
[2019-06-15] MEDS: FAMOTIDINE 20 MG TABLET JT SCH ×2 (05:28→17:30)
[2019-06-15 08:00] VITALS: BP 134/60
[2019-06-15] MEDS: LEVETIRACETAM 500 MG/5 ML LIQUID UDC JT SCH ×2 (08:49→20:53)
[2019-06-15] MEDS: COD LIVER OIL/ZINC OXIDE OINT 113 GM TUBE TP SCH ×4 (08:49→20:53)
[2019-06-15] MEDS: ASCORBIC ACID 500 MG TABLET JT SCH ×2 (08:49→20:53)
[2019-06-15] MEDS: METOPROLOL TARTRATE 50 MG TABLET JT SCH ×2 (09:00→20:53)
[2019-06-15] MEDS: HYDROGEN PEROXIDE 3% 118 ML BOTTLE TP SCH ×2 (09:18→21:05)
[2019-06-15] MEDS: RIVAROXABAN 10 MG TABLET JT SCH (20:46)
[2019-06-15] MEDS: ARGININE/GLUTAMINE/CALCIUM BMB 1 EACH POWD.PACK JT SCH (20:53)
[2019-06-15] MEDS: MULTIVIT, IRON, MIN NO. 8, FA TABLET JT SCH (20:53)
[2019-06-15] MEDS: PROTEIN SUPPLEMENT (PROSTAT) 30 ML LIQUID GT SCH (20:53)
[2019-06-15 20:57] VITALS: BP 137/57
[2019-06-16] MEDS: ALBUTEROL SULFATE 2.5 MG/3 ML NEBU NEB SCH ×4 (01:23→19:55)
[2019-06-16] MEDS: IPRATROPIUM BROMIDE 0.5 MG/2.5 ML NEBU NEB SCH ×4 (01:23→19:55)
[2019-06-16] MEDS: VITAL AF 1.2 1,000 ML LIQUID JT PRN ×2 (01:37→17:43)
[2019-06-16] MEDS: POLYVINYL ALCOHOL OPHT DROPS 15 ML BOTTLE EACHEYE SCH ×3 (05:02→21:15)
[2019-06-16] MEDS: FAMOTIDINE 20 MG TABLET JT SCH ×2 (05:02→17:43)
[2019-06-16] MEDS: LEVETIRACETAM 500 MG/5 ML LIQUID UDC JT SCH ×2 (08:19→21:12)
[2019-06-16] MEDS: ASCORBIC ACID 500 MG TABLET JT SCH ×2 (08:20→21:12)
[2019-06-16] MEDS: COD LIVER OIL/ZINC OXIDE OINT 113 GM TUBE TP SCH ×4 (08:23→21:15)
[2019-06-16] MEDS: METOPROLOL TARTRATE 50 MG TABLET JT SCH ×2 (09:00→21:12)
[2019-06-16 09:19] VITALS: BP 129/88
[2019-06-16] MEDS: HYDROGEN PEROXIDE 3% 118 ML BOTTLE TP SCH ×2 (09:58→21:55)
[2019-06-16 20:42] VITALS: BP 123/52
[2019-06-16] MEDS: MULTIVIT, IRON, MIN NO. 8, FA TABLET JT SCH (21:12)
[2019-06-16] MEDS: PROTEIN SUPPLEMENT (PROSTAT) 30 ML LIQUID GT SCH (21:12)
[2019-06-16] MEDS: ARGININE/GLUTAMINE/CALCIUM BMB 1 EACH POWD.PACK JT SCH (21:12)
[2019-06-16] MEDS: RIVAROXABAN 10 MG TABLET JT SCH (21:15)
[2019-06-17] MEDS: ALBUTEROL SULFATE 2.5 MG/3 ML NEBU NEB SCH ×4 (02:04→20:01)
[2019-06-17] MEDS: IPRATROPIUM BROMIDE 0.5 MG/2.5 ML NEBU NEB SCH ×4 (02:04→20:01)
[2019-06-17] MEDS: FAMOTIDINE 20 MG TABLET JT SCH ×2 (05:20→17:49)
[2019-06-17] MEDS: POLYVINYL ALCOHOL OPHT DROPS 15 ML BOTTLE EACHEYE SCH ×3 (05:20→22:05)
[2019-06-17] MEDS: LEVETIRACETAM 500 MG/5 ML LIQUID UDC JT SCH ×2 (08:52→20:32)
[2019-06-17] MEDS: METOPROLOL TARTRATE 50 MG TABLET JT SCH ×2 (08:53→20:33)
[2019-06-17] MEDS: COD LIVER OIL/ZINC OXIDE OINT 113 GM TUBE TP SCH ×4 (08:53→20:36)
[2019-06-17] MEDS: ASCORBIC ACID 500 MG TABLET JT SCH ×2 (08:53→20:34)
[2019-06-17] MEDS: VITAL AF 1.2 1,000 ML LIQUID JT PRN ×2 (09:33→23:00)
[2019-06-17] MEDS: HYDROGEN PEROXIDE 3% 118 ML BOTTLE TP SCH ×2 (09:45→21:18)
[2019-06-17 10:33] VITALS: BP 132/60
[2019-06-17 20:08] VITALS: BP 125/85
[2019-06-17] MEDS: ARGININE/GLUTAMINE/CALCIUM BMB 1 EACH POWD.PACK JT SCH (20:31)
[2019-06-17] MEDS: MULTIVIT, IRON, MIN NO. 8, FA TABLET JT SCH (20:33)
[2019-06-17] MEDS: RIVAROXABAN 10 MG TABLET JT SCH (20:38)
[2019-06-17] MEDS: PROTEIN SUPPLEMENT (PROSTAT) 30 ML LIQUID GT SCH (20:38)
[2019-06-18] MEDS: IPRATROPIUM BROMIDE 0.5 MG/2.5 ML NEBU NEB SCH ×4 (00:46→20:40)
[2019-06-18] MEDS: ALBUTEROL SULFATE 2.5 MG/3 ML NEBU NEB SCH ×4 (00:47→20:40)
[2019-06-18] MEDS: LOPERAMIDE HCL 2 MG/15 ML GT PRN (05:00)
[2019-06-18] MEDS: FAMOTIDINE 20 MG TABLET JT SCH ×2 (05:36→17:36)
[2019-06-18] MEDS: POLYVINYL ALCOHOL OPHT DROPS 15 ML BOTTLE EACHEYE SCH ×3 (05:36→22:08)
[2019-06-18] MEDS: METOPROLOL TARTRATE 50 MG TABLET JT SCH ×2 (08:27→20:38)
[2019-06-18] MEDS: LEVETIRACETAM 500 MG/5 ML LIQUID UDC JT SCH ×2 (08:27→20:37)
[2019-06-18] MEDS: ASCORBIC ACID 500 MG TABLET JT SCH ×2 (08:27→20:38)
[2019-06-18] MEDS: COD LIVER OIL/ZINC OXIDE OINT 113 GM TUBE TP SCH ×4 (08:28→20:39)
[2019-06-18] MEDS: HYDROGEN PEROXIDE 3% 118 ML BOTTLE TP SCH ×2 (09:13→21:56)
[2019-06-18 10:58] VITALS: BP 142/63
[2019-06-18] MEDS: PROTEIN SUPPLEMENT (PROSTAT) 30 ML LIQUID GT SCH (20:36)
[2019-06-18] MEDS: ARGININE/GLUTAMINE/CALCIUM BMB 1 EACH POWD.PACK JT SCH (20:37)
[2019-06-18] MEDS: MULTIVIT, IRON, MIN NO. 8, FA TABLET JT SCH (20:38)
[2019-06-18] MEDS: RIVAROXABAN 10 MG TABLET JT SCH (20:38)
[2019-06-18 21:18] VITALS: BP 127/58
[2019-06-19] MEDS: IPRATROPIUM BROMIDE 0.5 MG/2.5 ML NEBU NEB SCH ×4 (01:35→19:02)
[2019-06-19] MEDS: ALBUTEROL SULFATE 2.5 MG/3 ML NEBU NEB SCH ×4 (01:35→19:02)
[2019-06-19] MEDS: VITAL AF 1.2 1,000 ML LIQUID JT PRN (03:45)
[2019-06-19] MEDS: ACETAMINOPHEN 650 MG/20 ML UDC- SA PATIENTS-PAIN ONLY JT PRN (04:00)
[2019-06-19] MEDS: POLYVINYL ALCOHOL OPHT DROPS 15 ML BOTTLE EACHEYE SCH ×3 (05:35→22:07)
[2019-06-19] MEDS: FAMOTIDINE 20 MG TABLET JT SCH ×2 (05:36→17:08)
[2019-06-19 08:00] VITALS: BP 119/60
[2019-06-19] MEDS: COD LIVER OIL/ZINC OXIDE OINT 113 GM TUBE TP SCH ×4 (08:37→21:05)
[2019-06-19] MEDS: METOPROLOL TARTRATE 50 MG TABLET JT SCH ×2 (08:37→21:03)
[2019-06-19] MEDS: ASCORBIC ACID 500 MG TABLET JT SCH ×2 (08:37→21:04)
[2019-06-19] MEDS: LEVETIRACETAM 500 MG/5 ML LIQUID UDC JT SCH ×2 (08:37→21:02)
[2019-06-19] MEDS: HYDROGEN PEROXIDE 3% 118 ML BOTTLE TP SCH ×2 (09:45→21:07)
[2019-06-19 20:30] VITALS: BP 133/52
[2019-06-19] MEDS: PROTEIN SUPPLEMENT (PROSTAT) 30 ML LIQUID GT SCH (21:01)
[2019-06-19] MEDS: ARGININE/GLUTAMINE/CALCIUM BMB 1 EACH POWD.PACK JT SCH (21:01)
[2019-06-19] MEDS: MULTIVIT, IRON, MIN NO. 8, FA TABLET JT SCH (21:03)
[2019-06-19] MEDS: RIVAROXABAN 10 MG TABLET JT SCH (21:05)
[2019-06-20] MEDS: IPRATROPIUM BROMIDE 0.5 MG/2.5 ML NEBU NEB SCH ×4 (01:40→20:06)
[2019-06-20] MEDS: ALBUTEROL SULFATE 2.5 MG/3 ML NEBU NEB SCH ×4 (01:40→20:06)
[2019-06-20] MEDS: VITAL AF 1.2 1,000 ML LIQUID JT PRN ×2 (03:32→21:28)
[2019-06-20] MEDS: POLYVINYL ALCOHOL OPHT DROPS 15 ML BOTTLE EACHEYE SCH ×3 (06:13→21:28)
[2019-06-20] MEDS: FAMOTIDINE 20 MG TABLET JT SCH ×2 (06:13→17:36)
[2019-06-20 08:00] VITALS: BP 134/67
[2019-06-20] MEDS: METOPROLOL TARTRATE 50 MG TABLET JT SCH ×2 (08:35→21:28)
[2019-06-20] MEDS: ASCORBIC ACID 500 MG TABLET JT SCH ×2 (08:35→21:28)
[2019-06-20] MEDS: LEVETIRACETAM 500 MG/5 ML LIQUID UDC JT SCH ×2 (08:35→21:28)
[2019-06-20] MEDS: COD LIVER OIL/ZINC OXIDE OINT 113 GM TUBE TP SCH ×4 (08:36→21:28)
[2019-06-20] MEDS: HYDROGEN PEROXIDE 3% 118 ML BOTTLE TP SCH ×2 (09:00→21:00)
[2019-06-20] MEDS: MULTIVIT, IRON, MIN NO. 8, FA TABLET JT SCH (21:28)
[2019-06-20] MEDS: PROTEIN SUPPLEMENT (PROSTAT) 30 ML LIQUID GT SCH (21:28)
[2019-06-20] MEDS: ARGININE/GLUTAMINE/CALCIUM BMB 1 EACH POWD.PACK JT SCH (21:28)
[2019-06-20] MEDS: RIVAROXABAN 10 MG TABLET JT SCH (21:34)
[2019-06-20 22:36] VITALS: BP 123/63
[2019-06-21] MEDS: ALBUTEROL SULFATE 2.5 MG/3 ML NEBU NEB SCH ×4 (00:32→19:20)
[2019-06-21] MEDS: IPRATROPIUM BROMIDE 0.5 MG/2.5 ML NEBU NEB SCH ×4 (00:32→19:20)
[2019-06-21] MEDS: POLYVINYL ALCOHOL OPHT DROPS 15 ML BOTTLE EACHEYE SCH ×3 (05:11→22:07)
[2019-06-21] MEDS: FAMOTIDINE 20 MG TABLET JT SCH ×2 (05:11→17:21)
[2019-06-21] MEDS: ASCORBIC ACID 500 MG TABLET JT SCH ×2 (08:38→20:45)
[2019-06-21] MEDS: COD LIVER OIL/ZINC OXIDE OINT 113 GM TUBE TP SCH ×4 (08:38→20:45)
[2019-06-21] MEDS: METOPROLOL TARTRATE 50 MG TABLET JT SCH ×2 (08:38→20:45)
[2019-06-21] MEDS: LEVETIRACETAM 500 MG/5 ML LIQUID UDC JT SCH ×2 (08:38→20:45)
[2019-06-21] MEDS: HYDROGEN PEROXIDE 3% 118 ML BOTTLE TP SCH ×2 (09:00→21:44)
[2019-06-21 11:37] VITALS: BP 132/57
[2019-06-21] MEDS: PROTEIN SUPPLEMENT (PROSTAT) 30 ML LIQUID GT SCH (20:45)
[2019-06-21] MEDS: MULTIVIT, IRON, MIN NO. 8, FA TABLET JT SCH (20:45)
[2019-06-21] MEDS: ARGININE/GLUTAMINE/CALCIUM BMB 1 EACH POWD.PACK JT SCH (20:45)
[2019-06-21] MEDS: RIVAROXABAN 10 MG TABLET JT SCH (21:07)
[2019-06-21 22:09] VITALS: BP 126/58
[2019-06-22] MEDS: IPRATROPIUM BROMIDE 0.5 MG/2.5 ML NEBU NEB SCH ×4 (00:46→20:05)
[2019-06-22] MEDS: ALBUTEROL SULFATE 2.5 MG/3 ML NEBU NEB SCH ×4 (00:46→20:05)
[2019-06-22] MEDS: VITAL AF 1.2 1,000 ML LIQUID JT PRN (03:17)
[2019-06-22] MEDS: FAMOTIDINE 20 MG TABLET JT SCH ×2 (05:18→17:41)
[2019-06-22] MEDS: POLYVINYL ALCOHOL OPHT DROPS 15 ML BOTTLE EACHEYE SCH ×3 (05:18→22:12)
[2019-06-22] MEDS: LEVETIRACETAM 500 MG/5 ML LIQUID UDC JT SCH ×2 (08:59→20:34)
[2019-06-22] MEDS: HYDROGEN PEROXIDE 3% 118 ML BOTTLE TP SCH ×2 (08:59→20:05)
[2019-06-22] MEDS: ASCORBIC ACID 500 MG TABLET JT SCH ×2 (09:01→20:36)
[2019-06-22] MEDS: COD LIVER OIL/ZINC OXIDE OINT 113 GM TUBE TP SCH ×4 (09:01→20:38)
[2019-06-22] MEDS: METOPROLOL TARTRATE 50 MG TABLET JT SCH ×2 (09:01→20:36)
[2019-06-22 11:41] VITALS: BP 147/71
[2019-06-22] MEDS: RIVAROXABAN 10 MG TABLET JT SCH (20:33)
[2019-06-22] MEDS: ARGININE/GLUTAMINE/CALCIUM BMB 1 EACH POWD.PACK JT SCH (20:34)
[2019-06-22] MEDS: PROTEIN SUPPLEMENT (PROSTAT) 30 ML LIQUID GT SCH (20:34)
[2019-06-22] MEDS: MULTIVIT, IRON, MIN NO. 8, FA TABLET JT SCH (20:36)
[2019-06-22 22:03] VITALS: BP 123/55
[2019-06-23] MEDS: IPRATROPIUM BROMIDE 0.5 MG/2.5 ML NEBU NEB SCH ×4 (01:47→19:15)
[2019-06-23] MEDS: ALBUTEROL SULFATE 2.5 MG/3 ML NEBU NEB SCH ×4 (01:47→19:15)
[2019-06-23] MEDS: POLYVINYL ALCOHOL OPHT DROPS 15 ML BOTTLE EACHEYE SCH ×3 (06:07→21:08)
[2019-06-23] MEDS: FAMOTIDINE 20 MG TABLET JT SCH ×2 (06:07→17:24)
[2019-06-23 08:30] VITALS: BP 115/67
[2019-06-23] MEDS: LEVETIRACETAM 500 MG/5 ML LIQUID UDC JT SCH ×2 (08:56→21:07)
[2019-06-23] MEDS: ASCORBIC ACID 500 MG TABLET JT SCH ×2 (08:57→21:08)
[2019-06-23] MEDS: METOPROLOL TARTRATE 50 MG TABLET JT SCH ×2 (08:57→21:06)
[2019-06-23] MEDS: COD LIVER OIL/ZINC OXIDE OINT 113 GM TUBE TP SCH ×4 (08:57→21:08)
[2019-06-23] MEDS: HYDROGEN PEROXIDE 3% 118 ML BOTTLE TP SCH ×2 (09:00→21:24)
[2019-06-23] MEDS: VITAL AF 1.2 1,000 ML LIQUID JT PRN (11:14)
[2019-06-23 20:20] VITALS: BP 122/69
[2019-06-23] MEDS: RIVAROXABAN 10 MG TABLET JT SCH (21:04)
[2019-06-23] MEDS: PROTEIN SUPPLEMENT (PROSTAT) 30 ML LIQUID GT SCH (21:07)
[2019-06-23] MEDS: ARGININE/GLUTAMINE/CALCIUM BMB 1 EACH POWD.PACK JT SCH (21:07)
[2019-06-23] MEDS: MULTIVIT, IRON, MIN NO. 8, FA TABLET JT SCH (21:08)
[2019-06-24] MEDS: IPRATROPIUM BROMIDE 0.5 MG/2.5 ML NEBU NEB SCH ×4 (01:38→20:15)
[2019-06-24] MEDS: ALBUTEROL SULFATE 2.5 MG/3 ML NEBU NEB SCH ×4 (01:38→20:15)
[2019-06-24] MEDS: VITAL AF 1.2 1,000 ML LIQUID JT PRN ×2 (01:46→16:04)
[2019-06-24] MEDS: FAMOTIDINE 20 MG TABLET JT SCH ×2 (06:07→17:07)
[2019-06-24] MEDS: POLYVINYL ALCOHOL OPHT DROPS 15 ML BOTTLE EACHEYE SCH ×3 (06:07→21:28)
[2019-06-24] MEDS: HYDROGEN PEROXIDE 3% 118 ML BOTTLE TP SCH ×2 (09:00→21:00)
[2019-06-24] MEDS: LEVETIRACETAM 500 MG/5 ML LIQUID UDC JT SCH ×2 (09:44→21:27)
[2019-06-24] MEDS: ASCORBIC ACID 500 MG TABLET JT SCH ×2 (09:45→21:28)
[2019-06-24] MEDS: METOPROLOL TARTRATE 50 MG TABLET JT SCH ×2 (09:45→21:28)
[2019-06-24] MEDS: COD LIVER OIL/ZINC OXIDE OINT 113 GM TUBE TP SCH ×4 (09:45→21:28)
[2019-06-24 11:09] VITALS: BP 114/57
[2019-06-24] MEDS ORDERED: METOCLOPRAMIDE HCL 10 MG/10 ML UDC JT SCH (14:00)
[2019-06-24 20:00] VITALS: BP 129/75
[2019-06-24] MEDS: RIVAROXABAN 10 MG TABLET JT SCH (21:24)
[2019-06-24] MEDS: PROTEIN SUPPLEMENT (PROSTAT) 30 ML LIQUID GT SCH (21:27)
[2019-06-24] MEDS: ARGININE/GLUTAMINE/CALCIUM BMB 1 EACH POWD.PACK JT SCH (21:27)
[2019-06-24] MEDS: MULTIVIT, IRON, MIN NO. 8, FA TABLET JT SCH (21:28)
[2019-06-25] MEDS: IPRATROPIUM BROMIDE 0.5 MG/2.5 ML NEBU NEB SCH ×4 (02:22→19:13)
[2019-06-25] MEDS: ALBUTEROL SULFATE 2.5 MG/3 ML NEBU NEB SCH ×4 (02:22→19:13)
[2019-06-25] MEDS: POLYVINYL ALCOHOL OPHT DROPS 15 ML BOTTLE EACHEYE SCH ×3 (05:30→21:29)
[2019-06-25] MEDS: FAMOTIDINE 20 MG TABLET JT SCH ×2 (05:30→18:27)
[2019-06-25] MEDS: VITAL AF 1.2 1,000 ML LIQUID JT PRN (07:22)
[2019-06-25 08:00] VITALS: BP 130/60
[2019-06-25] MEDS: COD LIVER OIL/ZINC OXIDE OINT 113 GM TUBE TP SCH ×4 (08:36→21:29)
[2019-06-25] MEDS: METOPROLOL TARTRATE 50 MG TABLET JT SCH ×2 (08:36→21:28)
[2019-06-25] MEDS: LEVETIRACETAM 500 MG/5 ML LIQUID UDC JT SCH ×2 (08:36→21:24)
[2019-06-25] MEDS: ASCORBIC ACID 500 MG TABLET JT SCH ×2 (08:36→21:28)
[2019-06-25] MEDS: MUPIROCIN 2% OINT 22 GM TUBE TP SCH (09:00)
[2019-06-25] MEDS: HYDROGEN PEROXIDE 3% 118 ML BOTTLE TP SCH ×2 (09:17→21:00)
[2019-06-25 20:00] VITALS: BP 127/65
[2019-06-25] MEDS: RIVAROXABAN 10 MG TABLET JT SCH (21:00)
[2019-06-25] MEDS: PROTEIN SUPPLEMENT (PROSTAT) 30 ML LIQUID GT SCH (21:24)
[2019-06-25] MEDS: ARGININE/GLUTAMINE/CALCIUM BMB 1 EACH POWD.PACK JT SCH (21:24)
[2019-06-25] MEDS: MULTIVIT, IRON, MIN NO. 8, FA TABLET JT SCH (21:28)
[2019-06-26] MEDS: ALBUTEROL SULFATE 2.5 MG/3 ML NEBU NEB SCH ×4 (01:30→20:13)
[2019-06-26] MEDS: IPRATROPIUM BROMIDE 0.5 MG/2.5 ML NEBU NEB SCH ×4 (01:30→20:13)
[2019-06-26] MEDS: POLYVINYL ALCOHOL OPHT DROPS 15 ML BOTTLE EACHEYE SCH ×3 (05:37→21:40)
[2019-06-26] MEDS: FAMOTIDINE 20 MG TABLET JT SCH ×2 (05:37→18:20)
[2019-06-26 08:00] VITALS: BP 141/51
[2019-06-26] MEDS: HYDROGEN PEROXIDE 3% 118 ML BOTTLE TP SCH ×2 (09:00→21:01)
[2019-06-26] MEDS: MUPIROCIN 2% OINT 22 GM TUBE TP SCH ×2 (09:00→21:40)
[2019-06-26] MEDS: LEVETIRACETAM 500 MG/5 ML LIQUID UDC JT SCH ×2 (09:07→21:39)
[2019-06-26] MEDS: ASCORBIC ACID 500 MG TABLET JT SCH ×2 (09:07→21:40)
[2019-06-26] MEDS: METOPROLOL TARTRATE 50 MG TABLET JT SCH ×2 (09:07→21:39)
[2019-06-26] MEDS: COD LIVER OIL/ZINC OXIDE OINT 113 GM TUBE TP SCH ×4 (09:07→21:40)
[2019-06-26 20:00] VITALS: BP 106/70
[2019-06-26] MEDS: MULTIVIT, IRON, MIN NO. 8, FA TABLET JT SCH (21:39)
[2019-06-26] MEDS: ARGININE/GLUTAMINE/CALCIUM BMB 1 EACH POWD.PACK JT SCH (21:39)
[2019-06-26] MEDS: PROTEIN SUPPLEMENT (PROSTAT) 30 ML LIQUID GT SCH (21:39)
[2019-06-26] MEDS: RIVAROXABAN 10 MG TABLET JT SCH (21:45)
[2019-06-27] MEDS: VITAL AF 1.2 1,000 ML LIQUID JT PRN ×2 (00:12→14:25)
[2019-06-27] MEDS: IPRATROPIUM BROMIDE 0.5 MG/2.5 ML NEBU NEB SCH ×4 (01:30→20:20)
[2019-06-27] MEDS: ALBUTEROL SULFATE 2.5 MG/3 ML NEBU NEB SCH ×4 (01:30→20:20)
[2019-06-27] MEDS: POLYVINYL ALCOHOL OPHT DROPS 15 ML BOTTLE EACHEYE SCH ×3 (05:18→21:29)
[2019-06-27] MEDS: FAMOTIDINE 20 MG TABLET JT SCH ×2 (05:19→18:05)
[2019-06-27 08:03] VITALS: BP 145/55
[2019-06-27] MEDS: METOPROLOL TARTRATE 50 MG TABLET JT SCH ×2 (08:31→21:29)
[2019-06-27] MEDS: ASCORBIC ACID 500 MG TABLET JT SCH ×2 (08:31→21:29)
[2019-06-27] MEDS: LEVETIRACETAM 500 MG/5 ML LIQUID UDC JT SCH ×2 (08:31→21:28)
[2019-06-27] MEDS: MUPIROCIN 2% OINT 22 GM TUBE TP SCH ×2 (08:31→21:29)
[2019-06-27] MEDS: COD LIVER OIL/ZINC OXIDE OINT 113 GM TUBE TP SCH ×4 (08:32→21:29)
[2019-06-27] MEDS: HYDROGEN PEROXIDE 3% 118 ML BOTTLE TP SCH ×2 (09:15→21:51)
[2019-06-27 20:00] VITALS: BP 154/87
[2019-06-27] MEDS: RIVAROXABAN 10 MG TABLET JT SCH (21:26)
[2019-06-27] MEDS: ARGININE/GLUTAMINE/CALCIUM BMB 1 EACH POWD.PACK JT SCH (21:28)
[2019-06-27] MEDS: PROTEIN SUPPLEMENT (PROSTAT) 30 ML LIQUID GT SCH (21:28)
[2019-06-27] MEDS: MULTIVIT, IRON, MIN NO. 8, FA TABLET JT SCH (21:29)
[2019-06-28] MEDS: VITAL AF 1.2 1,000 ML LIQUID JT PRN ×2 (01:22→17:47)
[2019-06-28] MEDS: IPRATROPIUM BROMIDE 0.5 MG/2.5 ML NEBU NEB SCH ×4 (01:57→19:55)
[2019-06-28] MEDS: ALBUTEROL SULFATE 2.5 MG/3 ML NEBU NEB SCH ×4 (01:57→19:55)
[2019-06-28] MEDS: FAMOTIDINE 20 MG TABLET JT SCH ×2 (06:19→17:47)
[2019-06-28] MEDS: POLYVINYL ALCOHOL OPHT DROPS 15 ML BOTTLE EACHEYE SCH ×3 (06:19→21:15)
[2019-06-28 07:45] VITALS: BP 130/54
[2019-06-28] MEDS: MUPIROCIN 2% OINT 22 GM TUBE TP SCH ×2 (08:56→21:15)
[2019-06-28] MEDS: COD LIVER OIL/ZINC OXIDE OINT 113 GM TUBE TP SCH ×4 (08:56→21:15)
[2019-06-28] MEDS: ASCORBIC ACID 500 MG TABLET JT SCH ×2 (08:56→21:15)
[2019-06-28] MEDS: METOPROLOL TARTRATE 50 MG TABLET JT SCH ×2 (08:56→21:15)
[2019-06-28] MEDS: LEVETIRACETAM 500 MG/5 ML LIQUID UDC JT SCH ×2 (08:56→21:15)
[2019-06-28] MEDS: HYDROGEN PEROXIDE 3% 118 ML BOTTLE TP SCH ×2 (09:35→21:00)
[2019-06-28 20:34] VITALS: BP 131/60
[2019-06-28] MEDS: ARGININE/GLUTAMINE/CALCIUM BMB 1 EACH POWD.PACK JT SCH (21:15)
[2019-06-28] MEDS: PROTEIN SUPPLEMENT (PROSTAT) 30 ML LIQUID GT SCH (21:15)
[2019-06-28] MEDS: MULTIVIT, IRON, MIN NO. 8, FA TABLET JT SCH (21:15)
[2019-06-28] MEDS: RIVAROXABAN 10 MG TABLET JT SCH (21:26)
[2019-06-29] MEDS: IPRATROPIUM BROMIDE 0.5 MG/2.5 ML NEBU NEB SCH ×4 (01:25→20:28)
[2019-06-29] MEDS: ALBUTEROL SULFATE 2.5 MG/3 ML NEBU NEB SCH ×4 (01:25→20:28)
[2019-06-29] MEDS: FAMOTIDINE 20 MG TABLET JT SCH ×2 (05:42→17:54)
[2019-06-29] MEDS: POLYVINYL ALCOHOL OPHT DROPS 15 ML BOTTLE EACHEYE SCH ×3 (05:42→21:26)
[2019-06-29 08:03] VITALS: BP 110/67
[2019-06-29] MEDS: LEVETIRACETAM 500 MG/5 ML LIQUID UDC JT SCH ×2 (09:06→21:23)
[2019-06-29] MEDS: METOPROLOL TARTRATE 50 MG TABLET JT SCH ×2 (09:07→21:24)
[2019-06-29] MEDS: HYDROGEN PEROXIDE 3% 118 ML BOTTLE TP SCH ×2 (09:07→21:41)
[2019-06-29] MEDS: MUPIROCIN 2% OINT 22 GM TUBE TP SCH ×2 (09:07→21:25)
[2019-06-29] MEDS: COD LIVER OIL/ZINC OXIDE OINT 113 GM TUBE TP SCH ×4 (09:07→21:26)
[2019-06-29] MEDS: ASCORBIC ACID 500 MG TABLET JT SCH ×2 (09:07→21:25)
[2019-06-29] MEDS: VITAL AF 1.2 1,000 ML LIQUID JT PRN ×2 (09:38→22:56)
[2019-06-29 20:22] VITALS: BP 131/63
[2019-06-29] MEDS: ARGININE/GLUTAMINE/CALCIUM BMB 1 EACH POWD.PACK JT SCH (21:23)
[2019-06-29] MEDS: PROTEIN SUPPLEMENT (PROSTAT) 30 ML LIQUID GT SCH (21:23)
[2019-06-29] MEDS: MULTIVIT, IRON, MIN NO. 8, FA TABLET JT SCH (21:24)
[2019-06-29] MEDS: RIVAROXABAN 10 MG TABLET JT SCH (21:25)
[2019-06-30] MEDS: ALBUTEROL SULFATE 2.5 MG/3 ML NEBU NEB SCH ×4 (01:41→19:15)
[2019-06-30] MEDS: IPRATROPIUM BROMIDE 0.5 MG/2.5 ML NEBU NEB SCH ×4 (01:41→19:15)
[2019-06-30] MEDS: POLYVINYL ALCOHOL OPHT DROPS 15 ML BOTTLE EACHEYE SCH ×3 (05:12→21:46)
[2019-06-30] MEDS: FAMOTIDINE 20 MG TABLET JT SCH ×2 (05:12→17:31)
[2019-06-30 08:00] VITALS: BP 136/60
[2019-06-30] MEDS: LEVETIRACETAM 500 MG/5 ML LIQUID UDC JT SCH ×2 (08:12→20:44)
[2019-06-30] MEDS: METOPROLOL TARTRATE 50 MG TABLET JT SCH ×2 (08:13→20:44)
[2019-06-30] MEDS: ASCORBIC ACID 500 MG TABLET JT SCH ×2 (08:14→20:44)
[2019-06-30] MEDS: COD LIVER OIL/ZINC OXIDE OINT 113 GM TUBE TP SCH ×4 (08:15→20:45)
[2019-06-30] MEDS: HYDROGEN PEROXIDE 3% 118 ML BOTTLE TP SCH ×2 (09:00→21:20)
[2019-06-30] MEDS: MUPIROCIN 2% OINT 22 GM TUBE TP SCH ×2 (09:45→20:45)
[2019-06-30] MEDS: VITAL AF 1.2 1,000 ML LIQUID JT PRN (11:41)
[2019-06-30 20:12] VITALS: BP 127/63
[2019-06-30] MEDS: MULTIVIT, IRON, MIN NO. 8, FA TABLET JT SCH (20:44)
[2019-06-30] MEDS: ARGININE/GLUTAMINE/CALCIUM BMB 1 EACH POWD.PACK JT SCH (20:44)
[2019-06-30] MEDS: PROTEIN SUPPLEMENT (PROSTAT) 30 ML LIQUID GT SCH (20:44)
[2019-06-30] MEDS: RIVAROXABAN 10 MG TABLET JT SCH (20:45)
[2019-06-30] MEDS: TRIAMCINOLONE ACET 0.1% CREAM 15 GM TUBE TP SCH (20:46)
[2019-06-30] MEDS: NYSTATIN CREAM 30 GM TUBE TP SCH (20:46)
[2019-07-01] MEDS: IPRATROPIUM BROMIDE 0.5 MG/2.5 ML NEBU NEB SCH ×4 (01:10→19:16)
[2019-07-01] MEDS: ALBUTEROL SULFATE 2.5 MG/3 ML NEBU NEB SCH ×4 (01:10→19:16)
[2019-07-01] MEDS: VITAL AF 1.2 1,000 ML LIQUID JT PRN (05:25)
[2019-07-01] MEDS: FAMOTIDINE 20 MG TABLET JT SCH ×2 (05:25→17:28)
[2019-07-01] MEDS: POLYVINYL ALCOHOL OPHT DROPS 15 ML BOTTLE EACHEYE SCH ×3 (05:25→21:36)
[2019-07-01 08:00] VITALS: BP 122/53
[2019-07-01] MEDS: METOPROLOL TARTRATE 50 MG TABLET JT SCH ×2 (09:00→21:23)
[2019-07-01] MEDS: ASCORBIC ACID 500 MG TABLET JT SCH ×2 (09:59→21:31)
[2019-07-01] MEDS: COD LIVER OIL/ZINC OXIDE OINT 113 GM TUBE TP SCH ×4 (09:59→21:35)
[2019-07-01] MEDS: TRIAMCINOLONE ACET 0.1% CREAM 15 GM TUBE TP SCH ×2 (09:59→21:36)
[2019-07-01] MEDS: NYSTATIN CREAM 30 GM TUBE TP SCH ×2 (09:59→21:36)
[2019-07-01] MEDS: HYDROGEN PEROXIDE 3% 118 ML BOTTLE TP SCH ×2 (09:59→21:40)
[2019-07-01] MEDS: MUPIROCIN 2% OINT 22 GM TUBE TP SCH ×2 (09:59→21:35)
[2019-07-01] MEDS: LEVETIRACETAM 500 MG/5 ML LIQUID UDC JT SCH ×2 (09:59→21:22)
[2019-07-01] MEDS: ARGININE/GLUTAMINE/CALCIUM BMB 1 EACH POWD.PACK JT SCH (21:22)
[2019-07-01] MEDS: PROTEIN SUPPLEMENT (PROSTAT) 30 ML LIQUID GT SCH (21:22)
[2019-07-01] MEDS: MULTIVIT, IRON, MIN NO. 8, FA TABLET JT SCH (21:31)
[2019-07-01] MEDS: RIVAROXABAN 10 MG TABLET JT SCH (21:32)
[2019-07-01 21:38] VITALS: BP 126/58
[2019-07-02] MEDS: ALBUTEROL SULFATE 2.5 MG/3 ML NEBU NEB SCH ×4 (01:10→20:35)
[2019-07-02] MEDS: IPRATROPIUM BROMIDE 0.5 MG/2.5 ML NEBU NEB SCH ×4 (01:10→20:35)
[2019-07-02] MEDS: VITAL AF 1.2 1,000 ML LIQUID JT PRN (03:19)
[2019-07-02] MEDS: POLYVINYL ALCOHOL OPHT DROPS 15 ML BOTTLE EACHEYE SCH ×3 (05:25→21:20)
[2019-07-02] MEDS: FAMOTIDINE 20 MG TABLET JT SCH ×2 (05:25→17:05)
[2019-07-02] MEDS: HYDROGEN PEROXIDE 3% 118 ML BOTTLE TP SCH ×2 (09:00→21:00)
[2019-07-02] MEDS: MUPIROCIN 2% OINT 22 GM TUBE TP SCH ×2 (09:49→21:19)
[2019-07-02] MEDS: TRIAMCINOLONE ACET 0.1% CREAM 15 GM TUBE TP SCH ×2 (09:49→21:20)
[2019-07-02] MEDS: METOPROLOL TARTRATE 50 MG TABLET JT SCH ×2 (09:49→21:18)
[2019-07-02] MEDS: COD LIVER OIL/ZINC OXIDE OINT 113 GM TUBE TP SCH ×4 (09:49→21:20)
[2019-07-02] MEDS: ASCORBIC ACID 500 MG TABLET JT SCH ×2 (09:49→21:18)
[2019-07-02] MEDS: LEVETIRACETAM 500 MG/5 ML LIQUID UDC JT SCH ×2 (09:49→21:18)
[2019-07-02] MEDS: NYSTATIN CREAM 30 GM TUBE TP SCH ×2 (09:50→21:20)
[2019-07-02 11:29] VITALS: BP 127/55
[2019-07-02 20:51] VITALS: BP 114/42
[2019-07-02] MEDS: PROTEIN SUPPLEMENT (PROSTAT) 30 ML LIQUID GT SCH (21:18)
[2019-07-02] MEDS: ARGININE/GLUTAMINE/CALCIUM BMB 1 EACH POWD.PACK JT SCH (21:18)
[2019-07-02] MEDS: MULTIVIT, IRON, MIN NO. 8, FA TABLET JT SCH (21:18)
[2019-07-02] MEDS: RIVAROXABAN 10 MG TABLET JT SCH (21:19)
[2019-07-03] MEDS: ALBUTEROL SULFATE 2.5 MG/3 ML NEBU NEB SCH ×4 (01:33→20:06)
[2019-07-03] MEDS: IPRATROPIUM BROMIDE 0.5 MG/2.5 ML NEBU NEB SCH ×4 (01:33→20:06)
[2019-07-03] MEDS: POLYVINYL ALCOHOL OPHT DROPS 15 ML BOTTLE EACHEYE SCH ×3 (05:42→21:39)
[2019-07-03] MEDS: FAMOTIDINE 20 MG TABLET JT SCH ×2 (05:42→18:09)
[2019-07-03] MEDS: LEVETIRACETAM 500 MG/5 ML LIQUID UDC JT SCH ×2 (08:58→21:34)
[2019-07-03] MEDS: MUPIROCIN 2% OINT 22 GM TUBE TP SCH ×2 (08:59→21:38)
[2019-07-03] MEDS: COD LIVER OIL/ZINC OXIDE OINT 113 GM TUBE TP SCH ×4 (08:59→21:39)
[2019-07-03] MEDS: METOPROLOL TARTRATE 50 MG TABLET JT SCH ×2 (08:59→21:36)
[2019-07-03] MEDS: ASCORBIC ACID 500 MG TABLET JT SCH ×2 (08:59→21:36)
[2019-07-03] MEDS: TRIAMCINOLONE ACET 0.1% CREAM 15 GM TUBE TP SCH ×2 (09:00→21:39)
[2019-07-03] MEDS: NYSTATIN CREAM 30 GM TUBE TP SCH ×2 (09:00→21:39)
[2019-07-03] MEDS: HYDROGEN PEROXIDE 3% 118 ML BOTTLE TP SCH ×2 (09:37→21:00)
[2019-07-03] MEDS: VITAL AF 1.2 1,000 ML LIQUID JT PRN ×2 (11:03→22:39)
[2019-07-03 11:40] VITALS: BP 134/71
[2019-07-03] MEDS: ACETAMINOPHEN 650 MG/20 ML UDC- SA PATIENTS-PAIN ONLY JT PRN (18:13)
[2019-07-03 20:51] VITALS: BP 113/48
[2019-07-03] MEDS: PROTEIN SUPPLEMENT (PROSTAT) 30 ML LIQUID GT SCH (21:33)
[2019-07-03] MEDS: ARGININE/GLUTAMINE/CALCIUM BMB 1 EACH POWD.PACK JT SCH (21:34)
[2019-07-03] MEDS: MULTIVIT, IRON, MIN NO. 8, FA TABLET JT SCH (21:36)
[2019-07-03] MEDS: RIVAROXABAN 10 MG TABLET JT SCH (21:37)
[2019-07-04] MEDS: IPRATROPIUM BROMIDE 0.5 MG/2.5 ML NEBU NEB SCH ×4 (01:14→19:18)
[2019-07-04] MEDS: ALBUTEROL SULFATE 2.5 MG/3 ML NEBU NEB SCH ×4 (01:14→19:18)
[2019-07-04] MEDS: POLYVINYL ALCOHOL OPHT DROPS 15 ML BOTTLE EACHEYE SCH ×3 (05:39→21:39)
[2019-07-04] MEDS: FAMOTIDINE 20 MG TABLET JT SCH ×2 (05:39→17:26)
[2019-07-04] MEDS: METOPROLOL TARTRATE 50 MG TABLET JT SCH ×2 (08:12→21:38)
[2019-07-04] MEDS: LEVETIRACETAM 500 MG/5 ML LIQUID UDC JT SCH ×2 (08:12→21:34)
[2019-07-04] MEDS: ASCORBIC ACID 500 MG TABLET JT SCH ×2 (08:12→21:33)
[2019-07-04] MEDS: COD LIVER OIL/ZINC OXIDE OINT 113 GM TUBE TP SCH ×4 (08:13→21:33)
[2019-07-04] MEDS: MUPIROCIN 2% OINT 22 GM TUBE TP SCH ×2 (08:13→21:33)
[2019-07-04] MEDS: TRIAMCINOLONE ACET 0.1% CREAM 15 GM TUBE TP SCH ×2 (08:13→21:32)
[2019-07-04] MEDS: NYSTATIN CREAM 30 GM TUBE TP SCH ×2 (08:14→21:32)
[2019-07-04] MEDS: HYDROGEN PEROXIDE 3% 118 ML BOTTLE TP SCH ×2 (09:00→21:20)
[2019-07-04 10:48] VITALS: BP 113/60
[2019-07-04 20:50] VITALS: BP 125/73
[2019-07-04] MEDS: ARGININE/GLUTAMINE/CALCIUM BMB 1 EACH POWD.PACK JT SCH (21:32)
[2019-07-04] MEDS: PROTEIN SUPPLEMENT (PROSTAT) 30 ML LIQUID GT SCH (21:32)
[2019-07-04] MEDS: MULTIVIT, IRON, MIN NO. 8, FA TABLET JT SCH (21:33)
[2019-07-04] MEDS: RIVAROXABAN 10 MG TABLET JT SCH (21:37)
[2019-07-05] MEDS: ALBUTEROL SULFATE 2.5 MG/3 ML NEBU NEB SCH ×4 (00:43→19:16)
[2019-07-05] MEDS: IPRATROPIUM BROMIDE 0.5 MG/2.5 ML NEBU NEB SCH ×4 (00:43→19:16)
[2019-07-05] MEDS: VITAL AF 1.2 1,000 ML LIQUID JT PRN ×2 (03:22→16:45)
[2019-07-05] MEDS: POLYVINYL ALCOHOL OPHT DROPS 15 ML BOTTLE EACHEYE SCH ×3 (05:28→21:25)
[2019-07-05] MEDS: FAMOTIDINE 20 MG TABLET JT SCH ×2 (05:28→17:31)
[2019-07-05 08:00] VITALS: BP 126/54
[2019-07-05] MEDS: TRIAMCINOLONE ACET 0.1% CREAM 15 GM TUBE TP SCH ×2 (08:46→20:28)
[2019-07-05] MEDS: COD LIVER OIL/ZINC OXIDE OINT 113 GM TUBE TP SCH ×4 (08:46→20:28)
[2019-07-05] MEDS: MUPIROCIN 2% OINT 22 GM TUBE TP SCH ×2 (08:46→20:28)
[2019-07-05] MEDS: LEVETIRACETAM 500 MG/5 ML LIQUID UDC JT SCH ×2 (08:46→20:27)
[2019-07-05] MEDS: NYSTATIN CREAM 30 GM TUBE TP SCH ×2 (08:46→20:28)
[2019-07-05] MEDS: METOPROLOL TARTRATE 50 MG TABLET JT SCH ×2 (08:46→20:27)
[2019-07-05] MEDS: ASCORBIC ACID 500 MG TABLET JT SCH ×2 (08:47→20:27)
[2019-07-05] MEDS: HYDROGEN PEROXIDE 3% 118 ML BOTTLE TP SCH ×2 (09:40→21:16)
[2019-07-05] MEDS: PROTEIN SUPPLEMENT (PROSTAT) 30 ML LIQUID GT SCH (20:27)
[2019-07-05] MEDS: ARGININE/GLUTAMINE/CALCIUM BMB 1 EACH POWD.PACK JT SCH (20:27)
[2019-07-05] MEDS: RIVAROXABAN 10 MG TABLET JT SCH (20:27)
[2019-07-05] MEDS: MULTIVIT, IRON, MIN NO. 8, FA TABLET JT SCH (20:27)
[2019-07-05 20:42] VITALS: BP 139/67
[2019-07-06] MEDS: IPRATROPIUM BROMIDE 0.5 MG/2.5 ML NEBU NEB SCH ×4 (01:24→19:09)
[2019-07-06] MEDS: ALBUTEROL SULFATE 2.5 MG/3 ML NEBU NEB SCH ×4 (01:24→19:09)
[2019-07-06] MEDS: VITAL AF 1.2 1,000 ML LIQUID JT PRN ×2 (02:45→17:54)
[2019-07-06] MEDS: POLYVINYL ALCOHOL OPHT DROPS 15 ML BOTTLE EACHEYE SCH ×3 (05:31→21:15)
[2019-07-06] MEDS: FAMOTIDINE 20 MG TABLET JT SCH ×2 (05:31→17:54)
[2019-07-06] MEDS: LEVETIRACETAM 500 MG/5 ML LIQUID UDC JT SCH ×2 (08:53→20:28)
[2019-07-06] MEDS: MUPIROCIN 2% OINT 22 GM TUBE TP SCH ×2 (08:53→20:28)
[2019-07-06] MEDS: COD LIVER OIL/ZINC OXIDE OINT 113 GM TUBE TP SCH ×4 (08:53→20:28)
[2019-07-06] MEDS: ASCORBIC ACID 500 MG TABLET JT SCH ×2 (08:53→20:28)
[2019-07-06] MEDS: METOPROLOL TARTRATE 50 MG TABLET JT SCH ×2 (08:53→20:28)
[2019-07-06] MEDS: TRIAMCINOLONE ACET 0.1% CREAM 15 GM TUBE TP SCH ×2 (08:54→20:28)
[2019-07-06] MEDS: NYSTATIN CREAM 30 GM TUBE TP SCH ×2 (08:54→20:28)
[2019-07-06] MEDS: HYDROGEN PEROXIDE 3% 118 ML BOTTLE TP SCH ×2 (09:57→21:00)
[2019-07-06 11:45] VITALS: BP 107/70
[2019-07-06] MEDS: RIVAROXABAN 10 MG TABLET JT SCH (20:18)
[2019-07-06] MEDS: MULTIVIT, IRON, MIN NO. 8, FA TABLET JT SCH (20:28)
[2019-07-06] MEDS: PROTEIN SUPPLEMENT (PROSTAT) 30 ML LIQUID GT SCH (20:28)
[2019-07-06] MEDS: ARGININE/GLUTAMINE/CALCIUM BMB 1 EACH POWD.PACK JT SCH (20:28)
[2019-07-06 21:08] VITALS: BP 131/60
[2019-07-07] MEDS: IPRATROPIUM BROMIDE 0.5 MG/2.5 ML NEBU NEB SCH ×4 (01:46→20:23)
[2019-07-07] MEDS: ALBUTEROL SULFATE 2.5 MG/3 ML NEBU NEB SCH ×4 (01:47→20:23)
[2019-07-07] MEDS: POLYVINYL ALCOHOL OPHT DROPS 15 ML BOTTLE EACHEYE SCH ×3 (05:26→22:01)
[2019-07-07] MEDS: FAMOTIDINE 20 MG TABLET JT SCH ×2 (05:26→17:09)
[2019-07-07 08:30] VITALS: BP 114/68
[2019-07-07] MEDS: ASCORBIC ACID 500 MG TABLET JT SCH ×2 (08:45→20:21)
[2019-07-07] MEDS: LEVETIRACETAM 500 MG/5 ML LIQUID UDC JT SCH ×2 (08:45→20:21)
[2019-07-07] MEDS: METOPROLOL TARTRATE 50 MG TABLET JT SCH ×2 (08:45→20:23)
[2019-07-07] MEDS: MUPIROCIN 2% OINT 22 GM TUBE TP SCH ×2 (08:45→20:22)
[2019-07-07] MEDS: COD LIVER OIL/ZINC OXIDE OINT 113 GM TUBE TP SCH ×4 (08:45→20:22)
[2019-07-07] MEDS: NYSTATIN CREAM 30 GM TUBE TP SCH ×2 (08:46→20:23)
[2019-07-07] MEDS: TRIAMCINOLONE ACET 0.1% CREAM 15 GM TUBE TP SCH ×2 (08:46→20:22)
[2019-07-07] MEDS: HYDROGEN PEROXIDE 3% 118 ML BOTTLE TP SCH ×2 (09:33→20:22)
[2019-07-07 20:20] VITALS: BP 114/57
[2019-07-07] MEDS: ARGININE/GLUTAMINE/CALCIUM BMB 1 EACH POWD.PACK JT SCH (20:21)
[2019-07-07] MEDS: PROTEIN SUPPLEMENT (PROSTAT) 30 ML LIQUID GT SCH (20:21)
[2019-07-07] MEDS: MULTIVIT, IRON, MIN NO. 8, FA TABLET JT SCH (20:21)
[2019-07-07] MEDS: RIVAROXABAN 10 MG TABLET JT SCH (20:22)
[2019-07-07] MEDS: VITAL AF 1.2 1,000 ML LIQUID JT PRN (22:22)
[2019-07-08] MEDS: IPRATROPIUM BROMIDE 0.5 MG/2.5 ML NEBU NEB SCH ×4 (01:47→19:33)
[2019-07-08] MEDS: ALBUTEROL SULFATE 2.5 MG/3 ML NEBU NEB SCH ×4 (01:47→19:33)
[2019-07-08] MEDS: FAMOTIDINE 20 MG TABLET JT SCH ×2 (05:26→17:33)
[2019-07-08] MEDS: POLYVINYL ALCOHOL OPHT DROPS 15 ML BOTTLE EACHEYE SCH ×3 (05:26→21:57)
[2019-07-08] MEDS: COD LIVER OIL/ZINC OXIDE OINT 113 GM TUBE TP SCH ×4 (08:21→21:57)
[2019-07-08] MEDS: LEVETIRACETAM 500 MG/5 ML LIQUID UDC JT SCH ×2 (08:21→21:55)
[2019-07-08] MEDS: ASCORBIC ACID 500 MG TABLET JT SCH ×2 (08:21→21:56)
[2019-07-08] MEDS: METOPROLOL TARTRATE 50 MG TABLET JT SCH ×2 (08:21→21:56)
[2019-07-08] MEDS: MUPIROCIN 2% OINT 22 GM TUBE TP SCH ×2 (08:21→21:56)
[2019-07-08] MEDS: NYSTATIN CREAM 30 GM TUBE TP SCH ×2 (08:22→21:57)
[2019-07-08] MEDS: HYDROGEN PEROXIDE 3% 118 ML BOTTLE TP SCH ×2 (08:44→20:18)
[2019-07-08] MEDS: TRIAMCINOLONE ACET 0.1% CREAM 15 GM TUBE TP SCH ×2 (09:00→21:57)
[2019-07-08 09:24] VITALS: BP 125/59
[2019-07-08 20:00] VITALS: BP 140/74
[2019-07-08] MEDS: ARGININE/GLUTAMINE/CALCIUM BMB 1 EACH POWD.PACK JT SCH (21:55)
[2019-07-08] MEDS: PROTEIN SUPPLEMENT (PROSTAT) 30 ML LIQUID GT SCH (21:55)
[2019-07-08] MEDS: MULTIVIT, IRON, MIN NO. 8, FA TABLET JT SCH (21:56)
[2019-07-08] MEDS: RIVAROXABAN 10 MG TABLET JT SCH (21:58)
[2019-07-09] MEDS: IPRATROPIUM BROMIDE 0.5 MG/2.5 ML NEBU NEB SCH ×4 (00:30→19:33)
[2019-07-09] MEDS: ALBUTEROL SULFATE 2.5 MG/3 ML NEBU NEB SCH ×4 (00:30→19:33)
[2019-07-09] MEDS: VITAL AF 1.2 1,000 ML LIQUID JT PRN (05:09)
[2019-07-09] MEDS: FAMOTIDINE 20 MG TABLET JT SCH ×2 (06:06→17:18)
[2019-07-09] MEDS: POLYVINYL ALCOHOL OPHT DROPS 15 ML BOTTLE EACHEYE SCH ×3 (06:06→21:57)
[2019-07-09 08:00] VITALS: BP 119/60
[2019-07-09] MEDS: LEVETIRACETAM 500 MG/5 ML LIQUID UDC JT SCH ×2 (08:14→21:53)
[2019-07-09] MEDS: ASCORBIC ACID 500 MG TABLET JT SCH ×2 (08:16→21:55)
[2019-07-09] MEDS: METOPROLOL TARTRATE 50 MG TABLET JT SCH ×2 (08:16→21:54)
[2019-07-09] MEDS: MUPIROCIN 2% OINT 22 GM TUBE TP SCH ×2 (08:17→21:56)
[2019-07-09] MEDS: COD LIVER OIL/ZINC OXIDE OINT 113 GM TUBE TP SCH ×4 (08:17→21:57)
[2019-07-09] MEDS: TRIAMCINOLONE ACET 0.1% CREAM 15 GM TUBE TP SCH ×2 (08:17→21:57)
[2019-07-09] MEDS: NYSTATIN CREAM 30 GM TUBE TP SCH ×2 (08:17→21:57)
[2019-07-09] MEDS: HYDROGEN PEROXIDE 3% 118 ML BOTTLE TP SCH ×2 (09:55→21:17)
[2019-07-09 20:00] VITALS: BP 129/87
[2019-07-09] MEDS: PROTEIN SUPPLEMENT (PROSTAT) 30 ML LIQUID GT SCH (21:52)
[2019-07-09] MEDS: ARGININE/GLUTAMINE/CALCIUM BMB 1 EACH POWD.PACK JT SCH (21:53)
[2019-07-09] MEDS: MULTIVIT, IRON, MIN NO. 8, FA TABLET JT SCH (21:54)
[2019-07-09] MEDS: RIVAROXABAN 10 MG TABLET JT SCH (21:56)
[2019-07-10] MEDS: IPRATROPIUM BROMIDE 0.5 MG/2.5 ML NEBU NEB SCH ×4 (00:59→19:30)
[2019-07-10] MEDS: ALBUTEROL SULFATE 2.5 MG/3 ML NEBU NEB SCH ×4 (00:59→19:30)
[2019-07-10] MEDS: POLYVINYL ALCOHOL OPHT DROPS 15 ML BOTTLE EACHEYE SCH ×3 (05:54→21:49)
[2019-07-10] MEDS: FAMOTIDINE 20 MG TABLET JT SCH ×2 (05:54→17:14)
[2019-07-10 08:00] VITALS: BP 129/77
[2019-07-10] MEDS: METOPROLOL TARTRATE 50 MG TABLET JT SCH ×2 (08:34→21:00)
[2019-07-10] MEDS: LEVETIRACETAM 500 MG/5 ML LIQUID UDC JT SCH ×2 (08:34→21:44)
[2019-07-10] MEDS: ASCORBIC ACID 500 MG TABLET JT SCH ×2 (08:34→21:48)
[2019-07-10] MEDS: TRIAMCINOLONE ACET 0.1% CREAM 15 GM TUBE TP SCH ×2 (08:35→21:49)
[2019-07-10] MEDS: NYSTATIN CREAM 30 GM TUBE TP SCH ×2 (08:35→21:49)
[2019-07-10] MEDS: COD LIVER OIL/ZINC OXIDE OINT 113 GM TUBE TP SCH ×4 (08:35→21:49)
[2019-07-10] MEDS: MUPIROCIN 2% OINT 22 GM TUBE TP SCH ×2 (08:35→21:49)
[2019-07-10] MEDS: HYDROGEN PEROXIDE 3% 118 ML BOTTLE TP SCH ×2 (09:00→21:08)
[2019-07-10] MEDS: VITAL AF 1.2 1,000 ML LIQUID JT PRN (11:52)
[2019-07-10 20:00] VITALS: BP 99/69
[2019-07-10] MEDS: RIVAROXABAN 10 MG TABLET JT SCH (21:00)
[2019-07-10] MEDS: PROTEIN SUPPLEMENT (PROSTAT) 30 ML LIQUID GT SCH (21:43)
[2019-07-10] MEDS: ARGININE/GLUTAMINE/CALCIUM BMB 1 EACH POWD.PACK JT SCH (21:44)
[2019-07-10] MEDS: MULTIVIT, IRON, MIN NO. 8, FA TABLET JT SCH (21:48)
[2019-07-10 22:00] VITALS: BP 127/97
[2019-07-10 22:34] LABS: *BILIRUBIN,URIN NEGATIVE (NEGATIVE); *BLOOD, URINE 2+ (NEGATIVE); *COLOR,URINE YELLOW (YELLOW); *KETONES,URINE TRACE (NEGATIVE); *UROBILINOGEN,URINE 0.2 E.U./dl (NORMAL); LEUKOCYTE ESTERASE ,URINE 1+ (NEGATIVE); NITRITE, URINE NEGATIVE (NEGATIVE); PH,URINE 8.5 (5.0-8.0)
[2019-07-10 23:59] LABS: *CLARITY,URINE CLOUDY (CLEAR); UGLUCOSE 2+ (NEGATIVE)
[2019-07-11] VITALS: BP 98/55
[2019-07-11 00:04] LABS: BACTERIA,URINE MANY /HPF (NONE SEEN); RBC,URINE 20-50 /HPF (0-3); SQUAMOUS EPITHELIAL CELL,UR FEW /HPF (NONE SEEN); WBC,URINE 80-100 /HPF (0-3)
[2019-07-11] MEDS ORDERED: EPINEPHRINE 1:10,000 1 MG/10 ML DISP.SYRIN MC ONE (06:09)
[2019-07-11] MEDS ORDERED: ATROPINE SULFATE 1 MG/10 ML DISP.SYRIN IV ONE (06:09)
== END 2019-07-11 06:10 | disposition expired | DRG 130 ==
LOC: SA
PROVIDERS: ADMIT Internal Medicine; ATTEND Internal Medicine
PROC: 5A1955Z Respiratory Ventilation, Greater than 96 Consecutive Hours (ICD-10-PCS; principal; 2019-04-16)
DX: J96.11 Chronic respiratory failure with hypoxia (principal); A41.9 Sepsis, unspecified organism; G93.1 Anoxic brain damage, not elsewhere classified; E43 Unspecified severe protein-calorie malnutrition; G93.49 Other encephalopathy; L89.159 Pressure ulcer of sacral region, unspecified stage; R13.10 Dysphagia, unspecified; Z99.11 Dependence on respirator [ventilator] status; E11.69 Type 2 diabetes mellitus with other specified complication; D68.59 Other primary thrombophilia; Z86.74 Personal history of sudden cardiac arrest; Z22.322 Carrier or suspected carrier of Methicillin resistant Staphylococcus aureus; Z98.2 Presence of cerebrospinal fluid drainage device; I11.9 Hypertensive heart disease without heart failure; I25.10 Atherosclerotic heart disease of native coronary artery without angina pectoris; Z74.01 Bed confinement status; Z86.718 Personal history of other venous thrombosis and embolism; Z87.11 Personal history of peptic ulcer disease; Z87.440 Personal history of urinary (tract) infections; Z87.01 Personal history of pneumonia (recurrent); Z86.69 Personal history of other diseases of the nervous system and sense organs; Z86.19 Personal history of other infectious and parasitic diseases; Z74.09 Other reduced mobility; Z79.899 Other long term (current) drug therapy; Z98.890 Other specified postprocedural states; E11.51 Type 2 diabetes mellitus with diabetic peripheral angiopathy without gangrene; D64.9 Anemia, unspecified; B96.4 Proteus (mirabilis) (morganii) as the cause of diseases classified elsewhere; E78.5 Hyperlipidemia, unspecified; L98.9 Disorder of the skin and subcutaneous tissue, unspecified; G91.0 Communicating hydrocephalus; M86.9 Osteomyelitis, unspecified; R19.7 Diarrhea, unspecified; K94.23 Gastrostomy malfunction; Y83.3 Surgical operation with formation of external stoma as the cause of abnormal reaction of the patient, or of later complication, without mention of misadventure at the time of the procedure; Y92.89 Other specified places as the place of occurrence of the external cause
CPT/HCPCS: 36415; 71045; 83735; 84100; 85025; 87077; 87086; 94002; 94003; 94640; 94664; A4663; C1758; J0171; J0461; J3590; U0002